=== PATIENT | male | born 1940 | race Caucasian/White ===

== ENCOUNTER → 2017-11-20 09:41 | Outpatient (CLI) | payer MEDICARE, SELFPAY | PROVIDERS: Family Provider Family Medicine; PCP Family Medicine; Visit Provider Family Medicine | DX: Z01.818 Encounter for other preprocedural examination (principal); R73.09 Other abnormal glucose; E87.1 Hypo-osmolality and hyponatremia | CPT/HCPCS: 36415 ==

== ENCOUNTER → 2018-03-14 14:05 | Outpatient (CLI) | payer MEDICARE, SELFPAY ==
[2018-03-14 14:08] LABS: Mucous, Urine 0 SEEN /hpf (<or=2+); Red Blood Cells-Urine 0 SEEN /hpf (0-5)
[2018-03-14 15:33] LABS: Absolute Lymphocyte Count 1.06 X10^3/ul (0.83-4.51); Absolute Neutrophil Count 2.7 X10^3/uL (2.0-7.7); Basophil# 0.02 X10^3/uL; Basophil% 0.5 % (0-1); Color, Urine Yellow (Yellow); Eosinophil# 0.17 X10^3/uL; Glucose, Dipstick Normal (Normal); Hematocrit 36.3 % (40-54); Hemoglobin 12.5 g/dl (13.0-16.5); Ketone-Dipstick Negative (Negative); Leukocyte Esterase-Dipstick Negative /ul (Negative); Lymphocyte # 1.06 X10^3/ul (4.0); Lymphocyte % 25.2 % (19-41); Mean Corp Hgb Conc 34.4 g/gl (32-36); Mean Corpuscular Hgb 33.4 pg (27.0-32.0); Mean Corpuscular Volume 97.1 fL (80-94); Monocyte# 0.31 X10^3/uL; Monocyte% 7.4 % (0-10); Neutrophil # 2.65 X10^3/uL (2.7-7.7); Neutrophil % 62.9 % (47-70); Nitrite-Dipstick Positive (Negative); Occult Blood-Urine Negative /ul (Negative); POSITIVE COUNT NO; POSITIVE DIFFERENTIAL NO; POSITIVE MORPHOLOGY NO; Platelet Count 156 K/mm3 (150-450); Protein-Dipstick 15 mg/dl (Negative); RBC Distribution Width CV 12.5 % (11.6-14.6); RBC Distribution Width SD 42.8 fl (35.1-43.9); Red Blood Count 3.74 M/mm3 (4.6-6.2); Specific Gravity, Urine 1.025 (1.002-1.030); Urine Bilirubin Dipstick Negative (Negative); Urine Clarity Sl. Cloudy (Clear); Urine Urobilinogen 1 mg/dl (Normal); White Blood Count 4.2 K/mm3 (4.4-11.0)
[2018-03-14 15:57] LABS: ALB/GLOB Ratio 1.2 RATIO (0.9-2.4); AST(SGOT) 19 U/L (15-37); Alanine Aminotransfer ALT/SGPT 22 U/L (16-61); Albumin, Serum 3.5 g/dL (3.2-5.0); Alkaline Phosphatase 98 U/L (45-117); Anion Gap 7 (5-15); BUN 13 mg/dL (7-18); BUN/Creat Ratio 16.5 RATIO (10-20); Calcium,Total 8.5 mg/dL (8.5-10.1); Chloride 99 mmol/L (98-107); Cholesterol 152 mg/dL (200); Creatinine, Serum 0.79 mg/dL (0.70-1.30); EST Glomerular Filtration Rate 101 mL/min (>60); Est Glom Filt Rate - Afr Amer 123 mL/min (>60); Globulin 2.9 g/dL (2.2-4.2); Glucose 141 mg/dL (74-106); High Density Lipoprotein 58 mg/dL; Potassium 4.6 mmol/L (3.5-5.1); Protein, Total 6.4 g/dL (6.4-8.2); Sodium Level 137 mmol/L (136-145); Triglycerides 88 mg/dL; Very Low Density Lipoprotein 18 mg/dL (5-40)
[2018-03-14 16:20] LABS: Bacteria RARE /hpf (None Seen); Squamous Epithelial Cells - UA 0-5 SEEN /hpf (0-5); White Blood Cells 0-5 SEEN /hpf (0-5)
--- OUTSIDE RECORDS SUMMARY | 2018-05-19 09:02 | XMS RPT_ITS | Summary of Care ---
:1940 Author Organization [facility] Address [address] [id number] Care Team Providers Name Role Phone Jus Allison MD Primary Care Provider Sherif Valles MD Unavailable Varsha Pineda CNP Unavailable Fran Burris MD Unavailable Inder Guillen MD Unavailable Estefany Gaxiola RN Unavailable Unavailable Reason for Referral MRI/CAT/PET Scan (Routine) Status Reason Specialty Diagnoses / Referred By Contact Referred To Contact Procedures Closed Radiology Diagnoses Chemotherapy follow-up examination Malignant neoplasm of head of pancreas (HCC) Sherif Valles MD Procedures CT Chest Abdomen Pelvis With Contrast [address] [address] MRI/CAT/PET Scan (Routine) Status Reason Specialty Diagnoses / Referred By Contact Referred To Contact Procedures Closed Radiology Diagnoses Chemotherapy follow-up examination Malignant neoplasm of head of pancreas (HCC) Sherif Valles MD Procedures CT Chest Abdomen Pelvis With Contrast 801 [facility] [address] [place] [address] Reason for Visit MRI/CAT/PET Scan (Routine) Status Reason Specialty Diagnoses / Referred By Contact Referred To Contact Procedures Closed Radiology Diagnoses Chemotherapy follow-up examination Malignant neoplasm of head of pancreas (HCC) Sherif Valles MD Procedures CT Chest Abdomen Pelvis With Contrast [address] [address] Encounter Details Date Type Department Care Team Description 04/24/[address] [facility] Sherif Valles MD Chemotherapy follow-up examination; Center CT Scan 801 [facility] Malignant neoplasm of head of pancreas (HCC) [address] [facility] [address] [place] [address] [place] [address] [phone] Allergies Active Allergy Reactions Severity Noted Date Comments Ciprofloxacin Hives 12/01/2014 Hives in the 80s Gemcitabine 02/09/2017 Penicillin Hives 12/01/2014 Hives in the 80s Tetracycline 12/01/2014 Ondansetron Hcl Hives 11/30/2016 Itching, hives, shortness of breath, sweating as of this encounter Medications Prescription Sig. Disp. Refills Start Date End Date Status mometasone-formoterol Inhale 2 puffs 2 01/11/2012 Active (DULERA) 200-5 (two) times a mcg/actuation HFAA day. oxygen Inhale 2.5 L/min Active nightly. omeprazole (PRILOSEC) Take 1 (one) 30 capsule 11 08/18/2016 08/18/2017 Active 40 MG capsule (40 mg capsuleIndications: total) by mouth Generalized abdominal daily. pain pancrelipase, Take 1 (one) 90 capsule 11 03/02/2017 03/02/2018 Active Xzp-Vwje-Fzxc, capsule (12,000 (CREON) 12,000-38,000 units of lipase -60,000 unit CpDR total) by mouth capsule 3 (three) times a day with meals. 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 10/08/2015 Chronic obstructive pulmonary disease (HCC) 10/08/2015 Pure hypercholesterolemia 10/08/2015 Resolved Problems Problem Noted Date Resolved Date 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 Cellulitis of right lower leg 12/15/2016 12/19/2016 Cellulitis 12/13/2016 12/19/2016 Postoperative infection 12/09/2016 02/09/2017 Last Assessment & Plan: - Hemodynamics stable, afebrile, on RA - Pain: Tylenol PRN - Continue Activity as tolerated, encouraged ambulation - Continue VTE prophylaxis with Lovenox and ambulation - Continue antibiotics, awaiting final culture results Rash 11/20/2016 02/09/2017 Pancreatic mass 10/11/2016 11/16/2016 Prostatitis, chronic 11/10/2015 02/09/2017 Social History Tobacco Use Types Packs/Day Years Used Date Current Every Day Smoker 1 60 Smokeless Tobacco: Never Used Alcohol Use Drinks/Week oz/Week Comments Yes rarely 1-2 week Sex Assigned at Date Recorded Not on file as of this encounter Plan of Treatment Upcoming Encounters Date Type Specialty Care Team Description 04/25/2017 Radiation Oncology Radiation Oncology Cole Rivera MD [address] [id number] 04/26/2017 Office Visit Oncology Sherif Valles MD [address] [address] [phone] 05/11/2017 Office Visit Primary Care DerrekegJus burton MD [address] [place] [address] [phone] Health Maintenance Due Date Last Done Comments TETANUS EVERY 10 YR 1940 ZOSTER VACCINE 2001 PNEUMOCOCCAL VACCINE AGE 65+ (1 of 2 2006 - PCV13) SEQUENTIAL INFLUENZA VACCINE (#1) 2016 Low-dose CT Lung Cancer Screen 02/22/2018 02/22/2017, 01/03/2017, 10/16/2016 COLONOSCOPY 07/27/2021 07/27/2016, 01/12/2010 as of this encounter Implants Implanted Type Area Vaccine Manager Device Expiration Model / Identifier Date Serial / Lot Port Implanted Mri Isp W/8fr Cath Powerport - [id number] Catheter - Right: BARD PERIP 12/26/2017 [id number] / Implanted: Qty: 1 on 12/04/2016 by Kota Vences MD Implant Subclavian / [id number] Cath 90cm Peritoneal Open End W/Wall Slits - [id number] Catheter - N/A: Abdomen MEDTRO [id number] [id number] / Implanted: Qty: 1 on 01/24/2017 by Inder Guillen MD Implant / Sealant 10ml Floseal Matrix Hemostatic W/Ndl-Free Adapter - [id number] N/A: Abdomen TOBAR BIO 03/20/2018 [id number] / Implanted: Qty: 2 on 01/24/2017 by Inder Guillen MD / [id number] as of this encounter Results CT Chest Abdomen Pelvis With Contrast (04/24/2017 11:27 AM) Specimen Performing Laboratory [facility] Impressions 1. Status post Whipple without definite evidence of recurrent or residual neoplasm by CT.?Given the history of elevated tumor markers, MRI of the liver follow-up could be considered. 2. Advanced emphysema changes are redemonstrated. [employer] Workstation ID:? [id number] Narrative EXAMINATION: CT CHEST ABDOMEN PELVIS WITH CONTRAST DATE: 04/24/2017. HISTORY: Pancreatic cancer s/p surgery, increasing tumor markers, for follow up. Reason for exam?:Pancreatic cancer s/p surgery, increasing tumor markers, for follow up. Injury/Trauma or Illness?:Illness/Other TECHNIQUE: The patient received dilute water-soluble oral contrast (18 mL Isovue-370 diluted in total aqueous volume of 900 mL).?The patient also received IV contrast with 100 mL Isovue-370. Dose reduction techniques were achieved by using automated exposure control and/or adjustment of mA and/or kV according to patient size and/or use of iterative reconstruction technique. COMPARISON: CT chest, abdomen and pelvis from [facility] of 02/22/2017 and 01/03/2017, abdominal MRI from [place] on 01/10/2017. FINDINGS: CT CHEST:?Moderate bilateral emphysema changes are redemonstrated.?No new dense infiltrate or pulmonary mass lesion is noted.?No pleural or pericardial effusion.?Right subclavian port catheter system is shown with catheter tip in the superior vena cava.?Atherosclerotic changes are present including the coronary system, particularly the left anterior descending coronary artery.?No lymphadenopathy by size criteria.?Normal-sized heart.?No suspicious mass lesion in the visualized root of the neck.?No frankly destructive bony lesion. CT ABDOMEN:?Subtle segment 4a hypodensity is unchanged.?No definite new hepatic lesion.?Spleen is normal in size.?No adrenal or suspicious renal mass.?Gallbladder is absent.?Postsurgical changes from Whipple are noted.?Dilated pancreatic duct is similar to previous.?The portal vein is shown to be patent.?No overt soft tissue mass in the upper abdomen is noted.?No pattern of bowel obstruction or ascites.?No overt lymphadenopathy.?Atherosclerotic changes involve the arterial tree.?The abdominal aorta is not aneurysmally dilated.?Degenerative changes of the spine are shown; however, no adams bone destruction is noted. CT PELVIS:?Colonic diverticulosis is shown without features of diverticulitis.?Prostate gland is mildly enlarged.?No lymphadenopathy by size criteria.?No ascites. Procedure Note Interface, Rad In Leroy Speechq - 04/24/2017 12:50 PM EST EXAMINATION: CT CHEST ABDOMEN PELVIS WITH CONTRAST DATE: 04/24/2017. HISTORY: Pancreatic cancer s/p surgery, increasing tumor markers, for follow up. Reason for exam?:Pancreatic cancer s/p surgery, increasing tumor markers, for follow up. Injury/Trauma or Illness?:Illness/Other TECHNIQUE: The patient received dilute water-soluble oral contrast (18 mL Isovue-370 diluted in total aqueous volume of 900 mL). The patient also received IV contrast with 100 mL Isovue-370. Dose reduction techniques were achieved by using automated exposure control and/or adjustment of mA and/or kV according to patient size and/or use of iterative reconstruction technique. COMPARISON: CT chest, abdomen and pelvis from [facility] of 02/22/2017 and 01/03/2017, abdominal MRI from [place] on 01/10/2017. FINDINGS: CT CHEST: Moderate bilateral emphysema changes are redemonstrated. No new dense infiltrate or pulmonary mass lesion is noted. No pleural or pericardial effusion. Right subclavian port catheter system is shown with catheter tip in the superior vena cava. Atherosclerotic changes are present including the coronary system, particularly the left anterior descending coronary artery. No lymphadenopathy by size criteria. Normal-sized heart. No suspicious mass lesion in the visualized root of the neck. No frankly destructive bony lesion. CT ABDOMEN: Subtle segment 4a hypodensity is unchanged. No definite new hepatic lesion. Spleen is normal in size. No adrenal or suspicious renal mass. Gallbladder is absent. Postsurgical changes from Whipple are noted. Dilated pancreatic duct is similar to previous. The portal vein is shown to be patent. No overt soft tissue mass in the upper abdomen is noted. No pattern of bowel obstruction or ascites. No overt lymphadenopathy. Atherosclerotic changes involve the arterial tree. The abdominal aorta is not aneurysmally dilated. Degenerative changes of the spine are shown; however, no adams bone destruction is noted. CT PELVIS: Colonic diverticulosis is shown without features of diverticulitis. Prostate gland is mildly enlarged. No lymphadenopathy by size criteria. No ascites. IMPRESSION: 1. Status post Whipple without definite evidence of recurrent or residual neoplasm by CT. Given the history of elevated tumor markers, MRI of the liver follow-up could be considered. 2. Advanced emphysema changes are redemonstrated. iMusician/trw Workstation ID: [id number] in this encounter Visit Diagnoses Diagnosis Chemotherapy follow-up examination Malignant neoplasm of head of pancreas (HCC) Malignant neoplasm of head of pancreas Administered Medications Inactive Administered Medications - up to 3 most recent administrations Medication Order MAR Action Action Date Dose Rate Site iopamidol (ISOVUE-370) 76 Contrast Administered 04/24/2017 11:28 EST 100 mL % injection 100 mL 100 mL, Intravenous, Once in imaging, contrast, Starting 04/24/17 at 0937, For 1 dose iopamidol (ISOVUE-370) 76 % oral Contrast Administered 04/24/2017 09:30 EST 18 mL solution 18 mL 18 mL, Oral, Once in imaging, contrast, Starting 04/24/17 at 0937, For 1 dose in this encounter Insurance Payer Benefit Plan / Group Subscriber ID Type Phone Address [employer]NA MANAGED MEDICARE [employer] GOLD PLUS O xxxxxxxxx HCAP/JESSICA 80% JESSICA xxxxxxxxx [phone] [place] [address] as of this encounter
--- OUTSIDE RECORDS SUMMARY | 2018-05-19 09:03 | XMS RPT_ITS | Summary of Care ---
:1940 Author Organization [facility] Address [address] [place] [address] Phone Care Team Providers Name Role Phone Jus Allison MD Primary Care Provider Sherif Valles MD Unavailable Varsha Pineda BUTTON BROACHER Unavailable Fran Burris MD Unavailable Reason for Visit Reason Comments Transition Of Care [facility] f/u 12/12/2016 Encounter Details Date Type Department Care Team Description 12/13/2016 Patient Outreach [place] Fannie Grewal, Transition Of Care Physicians Primary RN ([facility]/ Care 12/12/2016) [address] [place] [address] Allergies Active Allergy Reactions Severity Noted Date Comments Ciprofloxacin 12/01/2014 Penicillin 12/01/2014 Tetracycline 12/01/2014 Ondansetron Hcl Hives 11/30/2016 Itching, hives, shortness of breath, sweating as of this encounter Medications Prescription Sig. Disp. Refills Start Date End Date Status aspirin 81 MG EC Take 1 tablet Active tabletIndications: pt by mouth daily states he has not been Reasons: pt taking for a couple of states he has weeks not been taking for a couple of weeks. mometasone-formoterol Inhale 2 puffs 01/11/2012 Active (DULERA) 200-5 2 (two) times a mcg/actuation day. alfuzosin (UROXATRAL) Take 1 tablet 30 tablet 11 10/08/2015 Active 10 mg 24 hr (10 mg total) tabletIndications: by mouth at Benign nodular bedtime. prostatic hyperplasia with lower urinary tract symptoms oxygen Inhale 2.5 Active L/min nightly. omeprazole (PRILOSEC) Take 1 (one) 30 capsule 11 08/18/2016 08/18/2017 Active 40 MG capsule (40 mg capsuleIndications: total) by mouth Generalized abdominal daily. pain dexamethasone Take 2 (two) 12 tablet 6 11/20/2016 12/18/2016 Active (DECADRON) 4 MG tablet tablets (8 mg total) by mouth 2 (two) times a day with meals START TAKING DAY AFTER CHEMO FOR 2 DAYS. cephALEXin (KEFLEX) Take 1 (one) 32 capsule 0 12/12/2016 12/20/2016 Active 500 MG capsule capsule (500 mg total) by mouth 4 (four) times a day for 8 days. doxycycline hyclate Take 1 (one) 16 tablet 0 12/12/2016 12/20/2016 Active (VIBRA-TABS) 100 MG tablet (100 mg tablet total) by mouth 2 (two) times a day for 8 days. as of this encounter Active Problems Problem Noted Date Postoperative infection 12/09/2016 Last Assessment & Plan: - Hemodynamics stable, afebrile, on RA - Pain: Tylenol PRN - Continue Activity as tolerated, encouraged ambulation - Continue VTE prophylaxis with Lovenox and ambulation - Continue antibiotics, awaiting final culture results Rash 11/20/2016 Chemotherapy follow-up examination 11/20/2016 Encounter for antineoplastic chemotherapy 11/16/2016 Pancreatic cancer (HCC) 11/07/2016 Prostatitis, chronic 11/10/2015 BPH with obstruction/lower urinary tract symptoms 11/04/2015 Elevated PSA 11/04/2015 Abnormal PSA 10/28/2015 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 Spoke to Hannah- Patient was discharged from [facility] Discharge diagnosis: Hyponatremia, Infected venous access port-left Date of discharge: 12/09/2016-12/12/2016 Patient stated reason for hospitalization He had an infection on his port site States has been feeling He is doing better, he is even up moving around just slow Medications: Have you filled any new prescriptions? START taking these medications ?? Instructions ?? cephALEXin 500 MG capsule Commonly known as: KEFLEX ? Take 1 (one) capsule (500 mg total) by mouth 4 (four) times a day for 8 days. ? doxycycline hyclate 100 MG tablet Commonly known as: VIBRA-TABS ? Take 1 (one) tablet (100 mg total) by mouth 2 (two) times a day for 8 days. ?? TAKE these medications as instructed which may have CHANGED ?? Instructions ?? dexamethasone 4 MG tablet Commonly known as: DECADRON What changed: additional instructions ? Take 2 (two) tablets (8 mg total) by mouth 2 (two) times a day with meals START TAKING DAY AFTER CHEMO FOR 2 DAYS. ?? Are you taking your medications as directed on the hospital discharge? Medications reviewed, clarified. denies concerns or complaints. ADLs: ? Currently meeting ADL needs by No difficulty, performs independently ? Mobility walks ? Assistance needed with None ? Sleeping sleeping well ? Bowel/Bladder Diarrhea mild, 1 - 3 / 10 no problems with bladder No intervention needed at present-occurs post chemo ? Pain none Verbalizes awareness of worsened/new symptoms such as Fever/chills, return of redness at port site, increased redness/swelling to lower extremities, CP, SOB not relieved by resting and actions including when to seek emergent care with EMS/ED Other tests/providers/clinics Dec 21, 2016 9:00 AM EDT Port Draw with C INFUSION, CHAIR 1 [facility] Chemo Infusion Therapy ([facility]) ?? [address] [facility] [address] ? Dec 21, 2016 9:40 AM EDT Established/Office Visit with Sherif Valles MD [facility] Oncology Clinic ([facility]) ?? [address] [facility] [address] ? Please bring a photo ID, insurance card, all medication bottles, and method of payment for any co-pay and/or co-insurances. ? Dec 21, 2016 10:00 AM EDT Chemo with [facility] INFUSION, CHAIR 5 [facility] Chemo Infusion Therapy ([facility]) ?? [address] [facility] [address] Blood Culture Aerobic/Anaerobic Order: [id number] Status: Preliminary result ?Visible to patient: No (Not Released) Next appt: 12/19/2016 at 10:45 AM in Primary Care (Jus Allison MD) Culture No Growth After 48 Hours Resulting Agency: [facility] Lab Specimen Collected: 12/09/16 10:58 AM Last Resulted: 12/11/16 ??3:59 PM Blood Culture Aerobic/Anaerobic Order: [id number] Status: Preliminary result ?Visible to patient: No (Not Released) Next appt: 12/19/2016 at 10:45 AM in Primary Care (Jus Allison MD) Culture No Growth After 48 Hours Resulting Agency: [facility] Lab Specimen Collected: 12/09/16 10:51 AM Last Resulted: 12/11/16 ??3:59 PM Advised to: ? Bring all medications with you to your appointment ? Bring meter if diabetic to appointment with you ? Appointment date/time: 12/19/2016 @ 10:45am in this encounter Plan of Treatment Upcoming Encounters Date Type Specialty Care Team Description 12/19/2016 Office Visit Primary Care Jus Allison MD [address] [place] [address] [phone] 12/21/2016 Nurse Only Infusion Therapy 12/21/2016 Office Visit Oncology Sherif Valles MD [address] [facility] [address] [place] [address] [phone] 12/21/2016 Infusion/Injection Infusion Therapy Health Maintenance Due Date Last Done Comments TETANUS EVERY 10 YR 1940 ZOSTER VACCINE 2001 PNEUMOCOCCAL VACCINE AGE 65+ (1 of 2 - 2006 PCV13) SEQUENTIAL INFLUENZA VACCINE (#1) [address] Low-dose CT Lung Cancer Screen 10/16/2017 10/16/2016 COLONOSCOPY 07/27/2021 07/27/2016, 01/12/2010 as of this encounter Implants Implanted Type Area Prop Drawer Device Expiration Model / Identifier Date Serial / Lot Port Implanted Mri Isp W/8fr Cath Powerport - [id number] Catheter - Right: BARD PERIP 12/26/2017 [id number] / Implanted: Qty: 1 on 12/04/2016 by Kota Vences MD Implant Subclavian / [id number] as of this encounter Insurance Payer Benefit Plan / Group Subscriber ID Type Phone Address HUMANA MANAGED MEDICARE HU[employer]NA [facility] GOLD PLUS O [id number] HCAP/JESSICA 80% JESSICA [id number] as of this encounter
--- OUTSIDE RECORDS SUMMARY | 2018-05-19 09:03 | XMS RPT_ITS | Summary of Care ---
:1940 Author Organization [facility] Address [address] [place] [address] Phone Care Team Providers Name Role Phone Jus Allison MD Primary Care Provider Sherif Valles MD Unavailable Varsha Pineda CNP Unavailable Fran Burris MD Unavailable Reason for Visit Reason Comments Leg Pain right Auth/Cert Status Reason Specialty Diagnoses / Procedures Referred By Contact Referred To Contact Diagnoses Cellulitis of right lower extremity Encounter Details Date Type Department Care Team Description 12/15/2016 - Hospital Encounter [facility] Sravan Vasquez MD [address] [place] [id number] Cellulitis of right 12/18/[address] Luis Zapata MD [address] [place] [address] [phone] lower extremity [address] [facility] (Primary Dx);[address] swelling;[place] [address] neoplasm of [phone] pancreas, unspecified location of malignancy (HCC);Hyponatremia; Gastroesophageal reflux disease, esophagitis presence not specified;Tobacco abuse Allergies Active Allergy Reactions Severity Noted Date Comments Ciprofloxacin 12/01/2014 Penicillin 12/01/2014 Tetracycline 12/01/2014 Ondansetron Hcl Hives 11/30/2016 Itching, hives, shortness of breath, sweating as of this encounter Medications Prescription Sig. Disp. Refills Start Date End Date Status aspirin 81 MG EC tablet Take 1 Active tablet by mouth daily . mometasone-formoterol Inhale 2 01/11/2012 Active (DULERA) 200-5 puffs 2 mcg/actuation HFAA (two) times a day. oxygen Inhale 2.5 Active L/min nightly. omeprazole (PRILOSEC) Take 1 (one) 30 capsule 11 08/18/2016 08/19/19 Active 40 MG capsule (40 18 capsuleIndications: mg total) by Generalized abdominal mouth daily. pain dexamethasone Take 2 (two) 12 tablet 6 11/20/2016 12/19/19 Active (DECADRON) 4 MG tablet tablets (8 17 mg total) by mouth 2 (two) times a day with meals START TAKING DAY AFTER CHEMO FOR 2 DAYS. doxycycline hyclate Take 1 (one) 16 tablet 0 12/12/2016 12/21/19 Active (VIBRA-TABS) 100 MG tablet (100 17 tablet mg total) by mouth 2 (two) times a day for 8 days. methylPREDNISolone Reasons: PT 12/13/2016 Active (MEDROL DOSEPACK) 4 mg has at home, tabletIndications: PT but not has at home, but not taking at taking at this time this time. diphenhydrAMINE Take 25 mg Active (BENADRYL) 25 mg by mouth capsule every 6 (six) hours as needed for itching. furosemide (LASIX) 20 Take 1 (one) 60 tablet 0 12/18/2016 01/18/20 Active MG tablet tablet (20 17 mg total) by mouth 2 (two) times a day. alfuzosin (UROXATRAL) Take 1 30 tablet 11 10/08/2015 12/19/19 Discontinued 10 mg 24 hr tablet (10 17 tabletIndications: mg total) by Benign nodular mouth at prostatic hyperplasia bedtime. with lower urinary tract symptoms cephALEXin (KEFLEX) 500 Take 1 (one) 32 capsule 0 12/12/2016 12/19/19 Discontinued MG capsule capsule (500 17 mg total) by mouth 4 (four) times a day for 8 days. as of this encounter Active Problems Problem Noted Date Cellulitis of right lower leg 12/15/2016 Cellulitis 12/13/2016 Postoperative infection 12/09/2016 Last Assessment & Plan: [...] Not on file as of this encounter Last Filed Vital Signs Vital Sign Reading Time Taken Blood Pressure 146/75 12/18/2016 12:31 PM EDT Pulse 81 12/18/2016 12:31 PM EDT Temperature 36.8 ??C (98.3 ??F) 12/18/2016 12:31 PM EDT Respiratory Rate 16 12/18/2016 12:31 PM EDT Oxygen Saturation 94% 12/18/2016 12:31 PM EDT Inhaled Oxygen Concentration - - Weight 75.6 kg (166 lb 10.7 oz) 12/15/2016 2:37 PM EDT Height 172.7 cm (5' 8) 12/15/2016 2:37 PM EDT Body Mass Index 25.34 12/15/2016 2:37 PM EDT in this encounter Discharge Summaries Luis Zapata MD - 12/18/2016 1:57 PM EDTFormatting of this note may be different from the original. DISCHARGE SUMMARY Patient: Elbert Espinosa Account: [id number] Admitted: 12/15/2016 Discharge Date/Time: No discharge date for patient encounter. Clinical Summary Discharge Diagnoses and Associated Hospital Course: ASSESSMENT AND PLAN: ?? Perpetual Assessment: ?Elbert??Francisca??is a 76 y.o.??y/o male??on hospital day 2??with history of pancreatic cancer stage 1B undergoing chemo, chronic lymphedema, tobacco abuse, COPD, and GERD who presents with RLE cellulitis after having failed 2 courses of outpatient antibiotics ? 1. Right lower extremity cellulitis ( Pseudo cellulitis due to gemcitabine ) . Failed outpatient treatment with Doxy and Keflex. ??No signs of sepsis on admission. ??Dopplers negative for DVT. ??CT with SQ edema but no abscess or osteomyelitis. Started IV Ancef in ER-switched to IV vancomycin and cefepime,due to immunocompromised status. Blood cultures remains NGTD. ID consult appreciated - Pseudocellulitis due to Gemcitabine Continue Doxy Only ( remaining 6 days which the patient was d/c last admission ) 2. Cancer of ??pancreas. Stage IB involving head and uncinate process measuring 2.1 cm. On neoadjuvant chemo with Gemzar and Abraane from 11/16/16, s/p 3rd cycle with plans for 9 total cycles then possible surgery. Follows with oncology Dr Valles and [facility] surgeon Dr. Tarango. ??Next session is 12/21 which will likely need to be delayed. Recommend continued outpatient follow-up. ??Port recently placed by Dr. Vences - initial concern for infection but now it looks good. 3.??Chronic lymphedema. Chronic since May 2016. ??Bilateral, R>L. ??Continue oral lasix. Elevate legs. 4.?Hyponatremia. Chronic. ??Likely SIADH. Continue lasix 5. Pancytopenia:??Likely chemo-induced but numbers have been stable this admission. 6. Tobacco use. Still smokes 1ppd, counseling provided, declined nicotine patch. 7. GERD??Stable on PPI 8. COPD??Not in exacerbation, okay to DC ICS as patient is refusing. ??Smoking cessation reinforced. ?? Surgeries No admission procedures for hospital encounter. Procedures No orders of the defined types were placed in this encounter. Consults Procedures ??? Consult Hospitalist ??? Hospitalize Patient To : ??? Inpatient consult to Infectious Diseases Other Tests No orders of the defined types were placed in this encounter. Allergies Ciprofloxacin; Penicillin; Tetracycline; and Zofran (as hydrochloride) [ondansetron hcl] Discharge Diet Heart Healthy Discharge Medications Medication List START taking these medications furosemide 20 MG tablet Commonly known as: LASIX Take 1 (one) tablet (20 mg total) by mouth 2 (two) times a day. CHANGE how you take these medications dexamethasone 4 MG tablet Commonly known as: DECADRON Take 2 (two) tablets (8 mg total) by mouth 2 (two) times a day with meals START TAKING DAY AFTER FOR 2 DAYS. What changed: additional instructions CONTINUE taking these medications aspirin 81 MG EC tablet BENADRYL 25 mg capsule Generic drug: diphenhydrAMINE cephALEXin 500 MG capsule Commonly known as: KEFLEX Take 1 (one) capsule (500 mg total) by mouth 4 (four) times a day for 8 days. doxycycline hyclate 100 MG tablet Commonly known as: VIBRA-TABS Take 1 (one) tablet (100 mg total) by mouth 2 (two) times a day for 8 days. DULERA 200-5 mcg/actuation Hfaa Generic drug: mometasone-formoterol methylPREDNISolone 4 mg tablet Commonly known as: MEDROL DOSEPACK omeprazole 40 MG capsule Commonly known as: PRILOSEC Take 1 (one) capsule (40 mg total) by mouth daily. oxygen STOP taking these medications alfuzosin 10 mg 24 hr tablet Commonly known as: UROXATRAL Where to Get Your Medications You can get these medications from any pharmacy Bring a paper prescription for each of these medications ??? furosemide 20 MG tablet Physician(s) Primary Care Provider: Jus Allison MD, , Address: [address] [facility] [address] Follow Up: No follow-up provider specified. Patient instructions, including activity, were given to the patient/family at discharge. Please seethe After Visit Summary in the medical record for details. Time spent on discharge: > 30 min Completed by: Luis Le on 12/18/16, 1:57 PMin this encounter Progress Notes Vicky Velásquez RN - 12/18/2016 12:18 PM EDT COMPLEX DISCHARGE Date: 12/18/2016 Time: 12:18 PM Patient Name: Elbert Espinosa Date of : 1940 Sex: Male Pt was readmitted to [facility], he lives w/ his spouse, he is independent at home. Home O2 w. [place] [employer] [employer]. We diacussed importance of close follow up as outpt. PCP and ONC appts on AVS. Discharge Plan Shared UM/CC and RN Source of Information: Patient Contact Phone Number: Paola [phone] Living Arrangements: Spouse/significant other Support Systems: Spouse/significant other, Family members, Friends/neighbors Functional Status: Independent Type of Residence: Private residence Prior to Admission Home Care Services: No (pcp Dr Allison) Type of Current Home Care Services: Oxygen Current Home Equipment: Oxygen (O2 w/ [place] [facility], [employer]) Insurance Coverage for Prescriptions: Yes ([employer]) Anticipated Discharge Plan Anticipated HME: None Anticipated Home Care Needs: None Potential for Readmission Potential for Readmission: Yes Potential for Readmission Reason: Cellulitis Discharge Readiness Expected Discharge Date: 12/18/16 [facility] Disposition D/C Disposition: Home Agency/Destination: Home Home Care Needs : None HME: None Same As Recommended : yes Transportation Type: Auto Luis Zapata MD - 12/18/2016 11:14 AM EDTFormatting of this note may be different from the original. GENERAL MEDICINE PROGRESS NOTE - DAILY Patient Name: Elbert Espinosa MR #: [id number] ADM Date: [id number] : 1940 ASSESSMENT AND PLAN: Perpetual Assessment: Elbert Espinosa is a 76 y.o. y/o male on hospital day 2 with history of pancreatic cancer stage 1B undergoing chemo, chronic lymphedema, tobacco abuse, COPD, and GERD who presents with RLE cellulitis after having failed 2 courses of outpatient antibiotics ?? 1. Right lower extremity cellulitis. Failed outpatient treatment with Doxy and Keflex. No signs of sepsis on admission. Dopplers negative for DVT. CT with SQ edema but no abscess or osteomyelitis. Started IV Ancef in ER-switched to IV vancomycin and cefepime, now day 3?? due to immunocompromised status. Blood cultures remains NGTD. ID consult pending . Could DC on same regimen (still has about 7 days left of keflex and doxy) or could switch to doxy and cipro. 2. Cancer of ??pancreas. Stage IB involving head and uncinate process measuring 2.1 cm. On neoadjuvant chemo with Gemzar and Abraane from 11/16/16, s/p 3rd cycle with plans for 9 total cycles then possible surgery. Follows with oncology Dr Valles and [facility] surgeon Dr. Taarngo. Next session is 12/21 which will likely need to be delayed. Recommend continued outpatient follow-up. Port recently placed by Dr. Vences - initial concern for infection but now it looks good. 3. Chronic lymphedema. Chronic since May 2016. ??Bilateral, R>L. Continue oral lasix. Elevate legs. 4. Hyponatremia. Chronic. ??Likely SIADH. Continue lasix 5. Pancytopenia: Likely chemo-induced but numbers have been stable this admission. 6. Tobacco use. Still smokes 1ppd, counseling provided, declined nicotine patch. 7. GERD Stable on PPI 8. COPD Not in exacerbation, okay to DC ICS as patient is refusing. Smoking cessation reinforced. 9. DVT prophylaxis SQ lovenox Subjective : No pain in the Right lower extremity No issues with weight bearing ID consult pending Review of Systems: The following system(s) were reviewed. Pertinent positive and negative findings are noted in the HPI. Const Eyes ENT Resp CV GI Neuro Musc Skin Psych Endo Allergy Heme/Lymph Physical Exam: Vital Signs: BP 145/70 (BP Location: Right arm, Patient Position: Sitting) Pulse 81 Temp 97.7 ??F (36.5 ??C) (Oral) Resp 16 Ht 5' 8 Wt 75.6 kg (166 lb 10.7 oz) SpO2 94% BMI 25.34 kg/m2 Constitutional General Appearance - NAD; Conversant Skin - Normal turgor; No rashes noted Eyes - Pupils equal in size bilaterally; Anicteric sclerae ENMT - Hearing intact; Oropharynx clear with moist mucosa Neck - Trachea midline, No goiter noted Cardiovascular - Regular rate and rhythm; No peripheral edema noted Respiratory - Clear to auscultate bilaterally; No increased work of breathing or accessory muscle use noted Gastrointestinal - Soft, nondistended and nontender; No hepatosplenomegaly noted, neg rtrg or cvatb, ext- No calf tenderness noted bilaterally;, dorsiflexion intact. Right lower leg cellulitis Neuro - Alert and Oriented x 3; Appropriate mood and affect, WOO and neg FND appreciated Intake/Output last 24 hours: Intake/Output Summary (Last 24 hours) at 12/18/16 1114 Last data filed at 12/18/16 0849 Gross per 24 hour Intake 0 ml Output 300 ml Net -300 ml I/O last 3 completed shifts: In: 350 [IV Piggyback:350] Out: 1300 [Urine:1300] I/O this shift: In: - Out: 300 [Urine:300] ADDITIONAL DATA REVIEWED: Laboratory: Results from last 7 days Lab Units 12/18/16 0431 12/17/16 0352 12/16/16 0324 12/15/16 1259 WBC K/mcL 4.17* 3.72* 3.97* 3.99* HGB g/dL 9.9* 10.7* 10.2* 11.5* HCT % 28.9* 31.2* 28.9* 33.1* PLT K/mcL 192 162 117* 104* MONOS% % 21.3 20.7 -- 12.8 Results from last 7 days Lab Units 12/18/16 0431 12/17/16 0352 12/16/16 0324 SODIUM mmol/L 129* 133* 131* POTASSIUM mmol/L 3.7 4.0 3.8 CHLORIDE mmol/L 92* 97* 95* BUN mg/dL 10 9 9 CREATININE mg/dL 0.67* 0.72* 0.71* GLUCOSE mg/dL 164* 131* 142* CALCIUM mg/dL 8.2* 8.5 8.2* No results found for: TROPONINT No results found for: INR Glucose (mg/dL) Date Value 12/04/2016 130 12/04/2016 130 (H) Radiology: Ultrasound duplex venous legs bilat Final Result CT Tibia And Fibula Right Without Contrast Final Result There is prominent circumferential subcutaneous edema throughout the right lower leg extending to the dorsum of the foot consistent with cellulitis in the appropriate clinical setting. No discrete soft tissue abscess or gas. PD/latakook Workstation ID: [id number] ??? aspirin 81 mg Oral Daily ??? cefePIMe (MAXIPIME) IVPB 2,000 mg Intravenous Q12H ??? clotrimazole Topical BID ??? enoxaparin (LOVENOX) injection 40 mg Subcutaneous Daily ??? furosemide 20 mg Oral BID ??? pantoprazole 40 mg Oral Daily ??? vancomycin 1,250 mg Intravenous Q18H Nara Waters MD - 12/17/2016 4:35 PM EDTFormatting of this note may be different from the original. Disposition/Comments: Likely tomorrow Perpetual Assessment: Elbert Espinosa is a 76 y.o. y/o male on hospital day 2 with history of pancreatic cancer stage 1B undergoing chemo, chronic lymphedema, tobacco abuse, COPD, and GERD who presents with RLE cellulitis after having failed 2 courses of outpatient antibiotics 1. Right lower extremity cellulitis. Failed outpatient treatment with Doxy and Keflex. No signs of sepsis on admission. Dopplers negative for DVT. CT with SQ edema but no abscess or osteomyelitis. Started IV Ancef in ER-switched to IV vancomycin and cefepime, now day 3?? due to immunocompromised status. Blood cultures remains NGTD. Clinically much improved today but will be conservative and monitor one more night. Could DC on same regimen (still has about 7 days left of keflex and doxy) or could switch to doxy and cipro. 2. Cancer of ??pancreas. Stage IB involving head and uncinate process measuring 2.1 cm. On neoadjuvant chemo with Gemzar and Abraane from 11/16/16, s/p 3rd cycle with plans for 9 total cycles then possible surgery. Follows with oncology Dr Valles and [facility] surgeon Dr. Tarango. Next session is 12/21 which will likely need to be delayed. Recommend continued outpatient follow-up. Port recently placed by Dr. Vences - initial concern for infection but now it looks good. 3. Chronic lymphedema. Chronic since May 2016. ??Bilateral, R>L. Continue oral lasix. Elevate legs. 4. Hyponatremia. Chronic. ??Likely SIADH. Sodium improved after lasix, now 133. Monitor.?? 5. Pancytopenia: Likely chemo-induced but numbers have been stable this admission. 6. Tobacco use. Still smokes 1ppd, counseling provided, declined nicotine patch. 7. GERD Stable on PPI 8. COPD Not in exacerbation, okay to DC ICS as patient is refusing. Smoking cessation reinforced. 9. DVT prophylaxis SQ lovenox ? ASSESSMENT AND PLAN: Perpetual Assessment: Elbert Espinosa is a 76 y.o. male patient of Jus Allison MD with history of CC / Reason for follow up: RLE swelling/redness SUBJECTIVE: Wants to go home but agrees should be conservative so doesn't have to be readmitted. Able to walk on the leg okay. ROS: The following system(s) were reviewed. Pertinent positive and negative findings are noted in the HPI. All other systems personally reviewed and if I did not specifically mention them in the HPI, are to be considered negative. PHYSICAL EXAMINATION: Temp: [97.9 ??F (36.6 ??C)-98.9 ??F (37.2 ??C)] 98.3 ??F (36.8 ??C) Heart Rate: [62-81] 63 Resp: [16-18] 18 BP: (114-143)/(53-68) 133/61 GENERAL: Resting comfortably. NAD, sitting with leg elevated HEAD: Normocephalic ENT: Hearing intact. CV: Reg, no murmur. No JVD. 2+ Edema of RLE, port looks good without overlying erythema. RESP: Clear, no rales, rhonchi, wheezes GI: Non-distended, +BS, soft, non-tender. SKIN: Right lower leg with much improved erythema, receding from marked borders, no longer warm to touch, still with 1-2+ edema, onychomycosis EXT: no cyanosis, clubbing, 1-2+ edema NEURO: Alert, Ox3. Grossly normal motor and sensory exam. No focal deficits PSYCH: Mood and affect are appropriate. Cooperative. Reviewed 12/17/16 4:35 PM: Laboratory Transcriptions Radiology Microbiology Cardiology Outside Records Medications Family Expected Discharge/Time Spent/CCM Time: Based on current clinical information, the expected discharge date is: day after tomorrow (12/19/2016) The total time spent for this visit was 35 minutes. Greater than 50% of the time was spent in counseling and coordination of care regarding plan of care. Nara Waters MD - 12/16/2016 11:49 AM EDTFormatting of this note may be different from the original. Disposition/Comments: Possibly or Sunday if clinically improved Perpetual Assessment: Elbert Espinosa is a 76 y.o. y/o male on hospital day 1 with history of pancreatic cancer stage 1B undergoing chemo, chronic lymphedema, tobacco abuse, COPD, and GERD who presents with RLE cellulitis after having failed 2 courses of outpatient antibiotics 1. Right lower extremity cellulitis. Failed outpatient treatment with Doxy and Keflex. No signs of sepsis on admission. Dopplers negative for DVT. CT with SQ edema but no abscess or osteomyelitis. Started IV Ancef in ER-switched to IV vancomycin and cefepime?? due to immunocompromised status. Monitor for clinical improvement. Source may have been his onychomycosis. 2. Cancer of ??pancreas. Stage IB involving head and uncinate process measuring 2.1 cm. On neoadjuvant chemo with Gemzar and Abraane from 11/16/16, s/p 3rd cycle with plans for 9 total cycles then possible surgery. Follows with oncology Dr Valles and [facility] surgeon Dr. Tarango. Next session is 12/21 which will likely need to be delayed. Recommend continued outpatient follow-up 3. Chronic lymphedema. Chronic since May 2016. ??Bilateral, R>L. Continue oral lasix. Elevate legs. 4. Hyponatremia. Chronic. ??Likely SIADH. Sodium improved after lasix, now 131. Monitor.?? 5. Pancytopenia: Likely chemo-induced. Monitor for now. 6. Tobacco use. Still smokes 1ppd, counseling provided, declined nicotine patch. 7. GERD Stable on PPI 8. COPD Not in exacerbation, continue ICS, smoking cessation reinforced. 9. DVT prophylaxis SQ lovenox ? ASSESSMENT AND PLAN: Perpetual Assessment: Elbert Espinosa is a 76 y.o. male patient of Jus Allison MD with history of CC / Reason for follow up: RLE swelling/redness SUBJECTIVE: He thinks his leg is about the same from yesterday. Having some pain when walking on it. Otherwise feeling okay and eating well. ROS: The following system(s) were reviewed. Pertinent positive and negative findings are noted in the HPI. All other systems personally reviewed and if I did not specifically mention them in the HPI, are to be considered negative. PHYSICAL EXAMINATION: Temp: [97.6 ??F (36.4 ??C)-98.7 ??F (37.1 ??C)] 98.2 ??F (36.8 ??C) Heart Rate: [60-97] 81 Resp: [16-19] 18 BP: (107-174)/(54-88) 116/64 GENERAL: Resting comfortably. NAD HEAD: Normocephalic ENT: Hearing intact. CV: Reg, no murmur. No JVD. 2+ Edema of RLE RESP: Clear, no rales, rhonchi, wheezes GI: Non-distended, +BS, soft, non-tender. SKIN: Right lower leg with warmth,edema, and erythema only minimally receded from marked border.Onychomycosis. EXT: no cyanosis, clubbing, edema NEURO: Alert, Ox3. Grossly normal motor and sensory exam. No focal deficits PSYCH: Mood and affect are appropriate. Cooperative. Reviewed 12/16/16 11:49 AM: Laboratory Transcriptions Radiology Microbiology Cardiology Outside Records Medications Family Expected Discharge/Time Spent/CCM Time: Based on current clinical information, the expected discharge date is: day after tomorrow (12/18/2016) The total time spent for this visit was 35 minutes. Greater than 50% of the time was spent in counseling and coordination of care regarding plan of care. Anitra Alvarado, Carri.Ph. - 12/15/2016 3:40 PM EDTFormatting of this note may be different from the original. Pharmacokinetic Consult ??? Vancomycin Dosing Elbert Espinosa is a 76 y.o. male who has been consulted for vancomycin dosing for Cellulitis not responding to beta lactams. Relevant clinical data and objective history reviewed: Creatinine Date Value Ref Range Status 12/15/2016 0.68 (L) 0.80 - 1.30 mg/dL Final 12/12/2016 0.72 (L) 0.80 - 1.30 mg/dL Final 12/11/2016 0.69 (L) 0.80 - 1.30 mg/dL Final 10/05/2016 0.7 (L) 0.8 - 1.3 mg/dL Final 09/11/2016 0.7 (L) 0.8 - 1.3 mg/dL Final Serum Creatinine Date Value Ref Range Status 01/11/2012 0.9 0.8 - 1.3 MG/DL BUN Date Value Ref Range Status 12/15/2016 10 8 - 25 mg/dL Final 12/12/2016 15 8 - 25 mg/dL Final 12/11/2016 9 8 - 25 mg/dL Final 07/07/2014 12 8 - 25 MG/DL 01/11/2012 9 6 - 24 MG/DL Estimated Creatinine Clearance: 61.8 mL/min (by C-G formula based on Cr of 0.68). Lab Results Component Value Date/Time WBC 3.99 (L) 12/15/2016 12:59 PM WBC 5.35 07/07/2014 11:01 AM HGB 11.5 (L) 12/15/2016 12:59 PM HGB 15.3 07/07/2014 11:01 AM HCT 33.1 (L) 12/15/2016 12:59 PM HCT 45.2 07/07/2014 11:01 AM MCV 90.4 12/15/2016 12:59 PM MCV 95.6 07/07/2014 11:01 AM PLT 104 (L) 12/15/2016 12:59 PM Temp Readings from Last 3 Encounters: 12/15/16 97.6 ??F (36.4 ??C) (Oral) 12/13/16 98 ??F (36.7 ??C) (Temporal) 12/12/16 97.6 ??F (36.4 ??C) (Oral) Baseline culture/source/susceptibility: blood cxs pending. Previous 2 blood cxs are no growth Current weight is 75.6 kg Assessment/Plan The patient will be started on vancomycin utilizing scheduled dosing based on actual body weight. Baseline risks associated with therapy include: advanced age. Will initiate dose at 1250 mg IV every 12 hours. Pharmacy will also follow closely for s/sx of nephrotoxicity and infusion reactions. Serum creatinine will be ordered per policy. Plan for trough as patient approaches steady state, prior to the 4th dose. Due to infection severity, will target a trough of 10-15 ug/mL. Pharmacy will continue to follow the patient???s culture results and clinical progress daily. Anitra Rios this encounter H&P Notes Stella Plunkett CNP - 12/15/2016 3:04 PM EDTFormatting of this note may be different from the original. Stella Plunkett CNP [facility] History and Physical Patient Name: Elbert Espinosa MR #: [id number] : 1940 Admit Date: [id number] Physicians: Jus Allison MD (Family); No ref. provider found (Referring) Perpetual assessment:Elbert Espinosa is a 76 y.o. male with PMH significant for recent admission at [place] from 12/09/16-12/12/16 for suspected MediPort site infection, COPD with continued tobacco use(Not on home o2), pancreatic cancer (stage IB ([id number])-diagnosed in 10/31/2016- follows up with Dr. Valles on neoadjuvant chemotherapy with Gemzar and Abraxane (started 11/16/16), s/p R chest mediport placement on 12/04/[address] Vences presented to [place] ER per instruction of oncology office for worsening right lower extremity cellulitis. ASSESSMENT AND PLAN: Right lower extremity cellulitis Failed outpatient treatment with Doxy and Keflex Patient has no 2 SIRS criteria(mild leukopenia from chemo not related to infection) Lower extremity venous Doppler from 12/10/16-negative for DVT Considering marketed worsening of symptoms, repeat venous Doppler Get CT lower extremity to rule out abscess Started IV Ancef in ER-switched to IV vancomycin and cefepime considering immunocompromised status Bilateral Leg swelling Chronic since May 2016. Bilateral, R>L. Place on Lasix 20 mg BID Check albumin levels Supportive care-Elevate legs while on bed Cancer of ??pancreas Stage IB involving head and uncinate process measuring 2.1 cm On neoadjuvant chemo with Gemzar and Abraane from 11/16/[address] Valles and [facility] surgeon Dr. Tarango Recommend continued outpatient follow-up ? 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 Tobacco use Still smokes 1ppd Counseled to quit Refusing nicotine patch ? GERD Stable on PPI, resume ? COPD Not in exacerbation C/w Dulera Smoking cessation reinforced ?? Pacytopenia Likely chemo induced Follow CBC ? DVT prophylaxis SQ lovenox Portions of this note utilized flo.do dictation software, please excuse any typographical or grammatical errors CC: Right lower extremity swelling and pain HPI: Elbert Espinosa is a 76 y.o. male with PMH significant for recent admission at [place] from 12/09/16-12/12/16 for suspected MediPort site infection, COPD with continued tobacco use(Not on home o2),pancreatic cancer (stage IB ([id number])-diagnosed in 10/31/2016, follows up with Dr. Valles on neoadjuvant chemotherapy with Gemzar and Abraxane (started 11/16/16),s/p R chest mediport placement on 12/04/[address] Vences presented to [place] ER per instruction of oncology office for worsening right lower extremity cellulitis. With recent admission for MediPort site infection, patient was treated with vancomycin and Ancef in the hospital and was DC home on Keflex and doxy. He reports compliance to his antibiotics. . He had bilateral lower extremity swelling since May 2016. During his recent hospital stay he developed some mild erythema on his right lower extremity but improved prior to discharge. He was seen by oncology on 12/13/16. His right lower extremity redness, swelling and pain started getting worse and he was recommended by oncology office to call them if does not get better. As it was not getting better today he called back on to oncology office who recommended him to come to ER chito evaluation. Denies fever, chills, anorexia, abdominal pain, nausea, vomiting. PMH/PSH/SH/FH: Past Medical History: Diagnosis Date ??? Arthritis ??? BPH (benign prostatic hyperplasia) ??? Cancer (HCC) skin cancer ??? Cataract ??? Chemotherapy adverse reaction 12/01/2016 has had 2 treatments-- getting port now. Had adverse reaction to zofran after first treatment ??? Chronic diarrhea current problem (07/21/16), stool specimen positive for blood ([facility]) per pt ??? Colon polyps 2009 benign ??? Complication of anesthesia difficulty waking up ??? COPD (chronic obstructive pulmonary disease) (HCC) ??? GERD (gastroesophageal reflux disease) ??? History of stress test ??? Pancreatic cancer (HCC) 11/12 ??? Pancreatic mass Past Surgical History: Procedure Laterality Date ??? APPENDECTOMY ??? CATHETER INSERTION SQPORT N/A 12/04/2016 Procedure: PORT PLACEMENT ; Surgeon: Kota Vences MD; Location: [facility] Main OR; Service: ??? COLONOSCOPY 2009 benign polyps found ??? COLONOSCOPY N/A 07/27/2016 Procedure: COLONOSCOPY; Surgeon: Kota Vences MD; Location: [facility] Endo; Service: ??? PROSTATE BIOPSY ??? SINUS SURGERY 2003 Family History Problem Relation Age of Onset ??? Hypertension Mother ??? Stroke Mother ??? Thyroid disease Mother ??? Cancer Mother lung ??? Cancer Father Lung, malignant neoplasm of the large intestine ??? Cancer Sister colon cancer Social History Social History ??? Marital status: Spouse name: N/A ??? Number of children: N/A ??? Years of education: N/A Occupational History ??? Not on file. Social History Main Topics ??? Smoking status: Current Every Day Smoker Packs/day: 1.00 Years: 60.00 ??? Smokeless tobacco: Never Used ??? Alcohol use Yes Comment: rarely 1-2 week ??? Drug use: No ??? Sexual activity: Not on file Other Topics Concern ??? Not on file Social History Narrative Allergy Information: I have reviewed the patient's allergies. Ciprofloxacin; Penicillin; Tetracycline; and Zofran (as hydrochloride) [ondansetron hcl] Home Medications: Outpatient Prescriptions as of 12/15/2016 Medication Sig ??? aspirin 81 MG EC tablet Take 1 tablet by mouth daily . ??? cephALEXin (KEFLEX) 500 MG capsule Take 1 (one) capsule (500 mg total) by mouth 4 (four) times aday for 8 days. ??? doxycycline hyclate (VIBRA-TABS) 100 MG tablet Take 1 (one) tablet (100 mg total) by mouth 2 (two) times a day for 8 days. ??? mometasone-formoterol (DULERA) 200-5 mcg/actuation HFAA Inhale 2 puffs 2 (two) times a day. ??? omeprazole (PRILOSEC) 40 MG capsule Take 1 (one) capsule (40 mg total) by mouth daily. ??? alfuzosin (UROXATRAL) 10 mg 24 hr tablet Take 1 tablet (10 mg total) by mouth at bedtime. (Patient not taking: Reported on 11/16/2016.) ??? dexamethasone (DECADRON) 4 MG tablet Take 2 (two) tablets (8 mg total) by mouth 2 (two) times a day with meals START TAKING DAY AFTER CHEMO FOR 2 DAYS. (Patient taking differently: Take 8 mg by mouth 2 (two) times a day with meals START TAKING DAY AFTER CHEMO FOR 2 DAYS PT NOT TAKING .) ??? methylPREDNISolone (MEDROL DOSEPACK) 4 mg tablet Reasons: PT has at home, but not taking at this time. ??? oxygen Inhale 2.5 L/min nightly. ROS: Constitution: Negative for diaphoresis, malaise/fatigue, weight gain and weight loss. ?? HENT: Negative for hearing loss, nosebleeds and tinnitus.? Eyes: Negative for blurred vision and visual disturbance. ?? Cardiovascular: negative for chest pain.? Respiratory: negative for shortness of breath. ?? Skin: Positive for RLE cellulitis Musculoskeletal: Negative for back pain, muscle weakness and myalgias. ?? Gastrointestinal: Negative for abdominal pain, change in bowel habit, melena, nausea and vomiting. ?? Genitourinary: Negative Neurological: Negative for loss of balance and numbness. ?? Psychiatric/Behavioral: Negative for memory loss. The patient is not nervous/anxious.?? PHYSICAL EXAMINATION: Vital Signs: Temp: [97.6 ??F (36.4 ??C)] 97.6 ??F (36.4 ??C) Heart Rate: [75-91] 75 Resp: [16] 16 BP: (147-162)/(66-77) 147/66 GENERAL: NAD HEAD: Normocephalic EYES: Conjunctiva and sclera clear, EOMI, PERRL ENT: Hearing intact. Pharynx clear NECK: No adenopathy or thyromegaly CV: RRR, no murmur. No JVD. 2-3+ bilateral lower extremity (R>L) edema. Right chest port intact RESP: Clear, no rales, rhonchi, wheezes or increase in respiratory effort, no use of acessory muscles GI: Non-distended, +BS, soft, non-tender. No guarding, masses or rebound MUSC: Normal ROM without deformity SKIN: Right lower extremities with erythema, 3+ edema, tenderness to palpation from below knee including the foot and the ankle NEURO: Alert, Ox3. Grossly normal motor and sensory exam. No focal deficits PSYCH: Mood and affect are appropriate. Cooperative. LYMPH: No adenopathy Laboratory and Additional Data Acquired or Reviewed: Laboratory Transcriptions Radiology Microbiology Cardiology Outside Records Medications Family Results for orders placed or performed during the hospital encounter of 12/15/16 BMP Result Value Ref Range Sodium 127 (L) 135 - 145 mmol/L Potassium 3.5 3.5 - 5.1 mmol/L Chloride 90 (L) 98 - 108 mmol/L Bicarbonate 31 22 - 34 mmol/L Anion Gap 10 10 - 20 mmol/L Glucose 177 (H) 65 - 99 mg/dL BUN 10 8 - 25 mg/dL Creatinine 0.68 (L) 0.80 - 1.30 mg/dL eGFR 93 >=60 mL/min/1.73 m2 BUN/Creatinine Ratio 14.7 10.0 - 20.0 Calcium 8.8 8.4 - 10.2 mg/dL CBC Auto Differential Result Value Ref Range WBC 3.99 (L) 4.50 - 11.00 K/mcL RBC 3.66 (L) 4.50 - 5.90 M/mcL Hemoglobin 11.5 (L) 13.5 - 17.5 g/dL Hematocrit 33.1 (L) 41.0 - 53.0 % MCV 90.4 80.0 - 100.0 fL MCH 31.4 26.0 - 34.0 pg MCHC 34.7 31.0 - 37.0 g/dL Platelets 104 (L) 150 - 400 K/mcL RDW - CV 12.4 11.6 - 14.8 % MPV 8.9 (L) 9.0 - 15.5 fL Neutrophils 54.5 % Lymphocytes 26.6 % Monocytes 12.8 % Eosinophils 5.8 % Basophils 0.3 % Neutrophils Abs 2.18 1.70 - 7.00 K/mcL Lymphocytes Abs 1.06 0.90 - 4.00 K/mcL Monocytes Abs 0.51 0.30 - 0.90 K/mcL Eosinophils Abs 0.23 0.00 - 0.50 K/mcL Basophils Abs 0.01 0.00 - 0.30 K/mcL Nucleated RBC 0.0 % Nucleated RBC Abs 0.00 0.00 - 0.00 K/mcL Associated attestation - Luis Zapata MD - 12/15/2016 3:33 PM EDT Patient seen and examined today Agree with the Assessment and Plan with changes below ASSESSMENT AND PLAN: ?? Right lower extremity cellulitis Failed outpatient treatment with Doxy and Keflex Patient has no 2 SIRS criteria(mild leukopenia from chemo not related to infection) Lower extremity venous Doppler from 12/10/16-negative for DVT Considering marketed worsening of symptoms, repeat venous Doppler to rule out DVT Get CT lower extremity with No abscess Started IV Ancef in ER-switched to IV vancomycin and cefepime considering immunocompromised status ?? Bilateral Leg swelling Chronic since May 2016. Bilateral, R>L. Place on Lasix 20 mg BID PO Check albumin levels , LFTs Supportive care-Elevate legs while on bed ?? Cancer of ??pancreas Stage IB involving head and uncinate process measuring 2.1 cm On neoadjuvant chemo with Gemzar and Abraane from 11/16/[address] Valles and [facility] surgeon Dr. Tarango Recommend continued outpatient follow-up ? 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 Tobacco use Still smokes 1ppd Counseled to quit Refusing nicotine patch ? GERD Stable on PPI, resume ? COPD Not in exacerbation C/w Dulera Smoking cessation reinforced ? 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 DVT prophylaxis SQ lovenox ?? ROS: Constitution: Negative for diaphoresis, malaise/fatigue, weight gain and weight loss. ?? HENT: Negative for hearing loss, nosebleeds and tinnitus.? Eyes: Negative for blurred vision and visual disturbance. ?? Cardiovascular: negative for chest pain.? Respiratory: negative for shortness of breath. ?? Skin: Positive for RLE cellulitis Musculoskeletal: Negative for back pain, muscle weakness and myalgias. ?? Gastrointestinal: Negative for abdominal pain, change in bowel habit, melena, nausea and vomiting. ?? Genitourinary: Negative Neurological: Negative for loss of balance and numbness. ?? Psychiatric/Behavioral: Negative for memory loss. The patient is not nervous/anxious.? Physical Exam ?? GENERAL: NAD HEAD: Normocephalic EYES: Conjunctiva and sclera clear, EOMI, PERRL ENT: Hearing intact. Pharynx clear NECK: No adenopathy or thyromegaly CV: RRR, no murmur. No JVD. 2-3+ bilateral lower extremity (R>L) edema. Right chest port intact RESP: Clear, no rales, rhonchi, wheezes or increase in respiratory effort, no use of acessory muscles GI: Non-distended, +BS, soft, non-tender. No guarding, masses or rebound MUSC: Normal ROM without deformity SKIN: Right lower extremities with erythema, 3+ edema, tenderness to palpation from below knee including the foot and the ankle NEURO: Alert, Ox3. Grossly normal motor and sensory exam. No focal deficits PSYCH: Mood and affect are appropriate. Cooperative. LYMPH: No adenopathy ??in this encounter Consult Notes Velma Montoya MD - 12/18/2016 1:43 PM EDTAssociated Order(s): IP CONSULT TO INFECTIOUS DISEASESFormatting of this note may be different from the original. INFECTIOUS DISEASES CONSULT NOTE Patient Name: Elbert Espinosa Admit Date: [id number] MR #: [id number] : 1940 Physicians: Jus Allison MD (Family); Dr Lim (Referring) Impression and Recommendations: RLE erythema, swelling, previous warmth, now with hyperpigmentation and more vascular appearing markings. Afebrile, WBC low from chemo but not neutropenic. Pt ready to leave. There is reported pseudocellulitis from gemzar, possible etiology as no other major clinical indicators of bacterial cellulitis but reasonable to complete course of PO abx. He is now more hyperpigmented than bright red, discussed that skin may stay that color or fade over time. Advised to monitor R dorsal foot, remains swollen but not painful. Discussed edema control, advised leg elevation and may need vascular medicine evaluation eventually. Pt endorses itching today, and new lesions on L leg. In case this is reaction to cephalosporin, would likely continue doxycycline alone given h/o PCN reaction. May need eventual skin biopsy if recurs. Thank you for allowing me to participate in the care of your patient. I did discuss the plan of carewith Dr Lim. D/w family at bedside. Planned d/c today. Chief Complaint/Reason for Visit: Right lower extremity cellulitis History of Present Illness: We are asked to see the patient at the request of Dr Lim. Elbert Espinosa is a 76 y.o. male with COPD, recently diagnosed pancreatic cancer who was directed to ED 12/15/16 for concern for RLE cellulitis. Reviewed oncologic history, pt started on chemo with gemzar and abraxane 11/16/16, most recently 12/07/16. He was admitted to [facility] 12/09-12/12/16 for redness of his newly placed port, bc negative. He states his RLE was red at that time, and viewed picture from 12/[address] Frazier. Pt states henoticed his RLE was more red and swollen at home, especially when he got up to urinate at night. He saw oncologist 12/13, who advised if not improving to return to ED. Pt came back to ED 12/15, started on vancomycin and cefepime. CT non-contrast showed diffuse tissue thickening, no abscess. His WBC islow normal. Afebrile. Not neutropenic. He states there was seeping from the leg at one point, improved edema now. Denies h/o cellulitis. He states he had spots pop up on LLE yesterday. He reports feeling generally itchy. He has unknown PCN reaction. Eosinophil percentage trending up. Denies trauma to leg. Does endorse mild lower leg swelling and circulation problems at baseline. History: Past Medical History: Diagnosis Date ??? Arthritis ??? BPH (benign prostatic hyperplasia) ??? Cancer (HCC) skin cancer ??? Cataract ??? Chemotherapy adverse reaction 12/01/2016 has had 2 treatments-- getting port now. Had adverse reaction to zofran after first treatment ??? Chronic diarrhea current problem (07/21/16), stool specimen positive for blood ([facility]) per pt ??? Colon polyps 2010 benign ??? Complication of anesthesia difficulty waking up ??? COPD (chronic obstructive pulmonary disease) (HCC) ??? GERD (gastroesophageal reflux disease) ??? History of stress test ??? Pancreatic cancer (HCC) 11/12 ??? Pancreatic mass Past Surgical History: Procedure Laterality Date ??? APPENDECTOMY ??? CATHETER INSERTION SQPORT N/A 12/04/2016 Procedure: PORT PLACEMENT ; Surgeon: Kota Vences MD; Location: [facility] Main OR; Service: ??? COLONOSCOPY 2010 benign polyps found ??? COLONOSCOPY N/A 07/27/2016 Procedure: COLONOSCOPY; Surgeon: Kota Vences MD; Location: [facility] Endo; Service: ??? PROSTATE BIOPSY ??? SINUS SURGERY 2003 Family History Problem Relation Age of Onset ??? Hypertension Mother ??? Stroke Mother ??? Thyroid disease Mother ??? Cancer Mother lung ??? Cancer Father Lung, malignant neoplasm of the large intestine ??? Cancer Sister colon cancer Social History Social History ??? Marital status: Spouse name: N/A ??? Number of children: N/A ??? Years of education: N/A Occupational History ??? Not on file. Social History Main Topics ??? Smoking status: Current Every Day Smoker Packs/day: 1.00 Years: 60.00 ??? Smokeless tobacco: Never Used ??? Alcohol use Yes Comment: rarely 1-2 week ??? Drug use: No ??? Sexual activity: Not on file Other Topics Concern ??? Not on file Social History Narrative Allergy Information: I have reviewed the patient's allergies. Ciprofloxacin; Penicillin; Tetracycline; and Zofran (as hydrochloride) [ondansetron hcl] Home Medications: I have reviewed the patient's home medication list. Review of Systems: The following system(s) were reviewed and negative. Pertinent positive and negative findings are noted in the HPI. Const Eyes ENT Resp CV GI Neuro Musc Skin Psych Endo Allergy Heme/Lymph Unable to obtain due to clinical status Physical Examination: Vital Signs: Temp: [97.7 ??F (36.5 ??C)-98.6 ??F (37 ??C)] 98.3 ??F (36.8 ??C) Heart Rate: [63-89] 81 Resp: [16-18] 16 BP: (133-150)/(61-75) 146/75 General: Alert, cooperative, no distress, appears stated age Eyes: conjunctiva/sclerae clear Mouth and Throat: Oral exam without erythema or exudate Neck: Supple, symmetrical, trachea midline, no adenopathy Respiratory: respirations unlabored, normal respiratory effort, occasional cough Cardiovascular: Distant S1S2 Gastrointestinal (Abdomen): Soft, non-tender, bowel sounds active, no masses or organomegaly appreciated Genitourinary: No blunt Extremities: R>LLE edema, pitting on right Skin: See pictures below. Port site non-tender Musculoskeletal: No joint erythema or edema RLE with shiny edema, minimal warmth, hyperpigmented macules proximally. More prominent red swelling on R foot, nontender RLE near knee LLE with new petechial/vascular lesions, no cellultis Pictures taken with patient's permission. Laboratory and Additional Data Reviewed: Laboratory 12/18/16 2:07 PM Microbiology 12/18/16 2:07 PM Pathology 12/18/16 2:07 PM Radiology 12/18/16 2:07 PM Cardiology 12/18/16 2:07 PM Medications 12/18/16 2:07 PM Transcriptions 12/18/16 2:07 PM Current medications: ??? aspirin 81 mg Oral Daily ??? cefePIMe (MAXIPIME) IVPB 2,000 mg Intravenous Q12H ??? clotrimazole Topical BID ??? enoxaparin (LOVENOX) injection 40 mg Subcutaneous Daily ??? furosemide 20 mg Oral BID ??? pantoprazole 40 mg Oral Daily ??? tamsulosin 0.4 mg Oral After evening meal ??? vancomycin 1,250 mg Intravenous Q18H Results from last 7 days Lab Units 12/18/16 0431 12/17/16 0352 12/16/16 0324 WBC K/mcL 4.17* 3.72* 3.97* HGB g/dL 9.9* 10.7* 10.2* HCT % 28.9* 31.2* 28.9* PLT K/mcL 192 162 117* Results from last 7 days Lab Units 12/18/16 0431 12/17/16 0352 12/16/16 0324 SODIUM mmol/L 129* 133* 131* POTASSIUM mmol/L 3.7 4.0 3.8 CHLORIDE mmol/L 92* 97* 95* BUN mg/dL 10 9 9 CREATININE mg/dL 0.67* 0.72* 0.71* GLUCOSE mg/dL 164* 131* 142* CALCIUM mg/dL 8.2* 8.5 8.2* Comments: WBC 4.17. Mild elevation eosinophil percentage. Cr 0.[address] reviewed Assessment Detail: The total time spent for this visit was 50 minutes. Greater than 50% of the time was spent in counseling and coordination of care regarding RLE erythema, concern for cellulitis. Velma Montoya MD [facility] - Infectious Diseases Pager [phone] Office/answering service [phone] 12/18/2016 1:43 PM in this encounter Miscellaneous Notes ED Attestation Note - Sravan Vasquez MD - 12/15/2016 1:50 PM EDTED Attestation: I was personally available for consult in the emergency department. I have reviewed the chart and agree with the documentation as recorded by the SHAHID (Advanced Practice Provider), including the assessment, treatment plan, and disposition ED Provider Notes - Dominik Goncalves PA-C - 12/15/2016 1:37 PM EDT Formatting of this note may be different from the original. ED PROVIDER NOTE [facility] EMERGENCY DEPARTMENT NAME: Elbert Espinosa AGE: 76 y.o. : 1940 VISIT DATE: 12/15/2016 CSN: [id number] PCP: Jus Allison MD Chief Complaint Patient presents with ??? Leg Pain right HPI Comments: Patient presents the emergency department with sialitis of the right lower extremity.He was admitted to the hospital about a week ago for a port infection to the right chest as well as a sialitis of the right lower extremity. His inpatient course included vancomycin and Ancef and states that he did not really get a lot better while he was in the hospital. Was discharged 3 or 4 days ago on doxycycline and Keflex and states he is having worsening pain and continues to have a reddenedswollen leg. He saw his primary care doctor today and directed him to come the emergency departmentbecause he feels he needs to be rehospitalized due to his cellulitis. Patient is currently being treated with chemotherapy for pancreatic cancer. He states he is having a lot of pain like this is notany better. He denies chest pain fever vomiting or other ill symptoms. He notes the swelling and redness he was having to the right chest has resolved. History provided by: Patient Past Medical History: Diagnosis Date ??? Arthritis ??? BPH (benign prostatic hyperplasia) ??? Cancer (HCC) skin cancer ??? Cataract ??? Chemotherapy adverse reaction 12/01/2016 has had 2 treatments-- getting port now. Had adverse reaction to zofran after first treatment ??? Chronic diarrhea current problem (07/21/16), stool specimen positive for blood ([facility]) per pt ??? Colon polyps 2010 benign ??? Complication of anesthesia difficulty waking up ??? COPD (chronic obstructive pulmonary disease) (HCC) ??? GERD (gastroesophageal reflux disease) ??? History of stress test ??? Pancreatic cancer (HCC) 11/12 ??? Pancreatic mass Past Surgical History: Procedure Laterality Date ??? APPENDECTOMY ??? CATHETER INSERTION SQPORT N/A 12/04/2016 Procedure: PORT PLACEMENT ; Surgeon: Kota Vences MD; Location: [facility] Main OR; Service: ??? COLONOSCOPY 2010 benign polyps found ??? COLONOSCOPY N/A 07/27/2016 Procedure: COLONOSCOPY; Surgeon: Kota Vences MD; Location: [facility] Endo; Service: ??? PROSTATE BIOPSY ??? SINUS SURGERY 2003 Family History Problem Relation Age of Onset ??? Hypertension Mother ??? Stroke Mother ??? Thyroid disease Mother ??? Cancer Mother lung ??? Cancer Father Lung, malignant neoplasm of the large intestine ??? Cancer Sister colon cancer Social History Social History ??? Marital status: Spouse name: N/A ??? Number of children: N/A ??? Years of education: N/A Occupational History ??? Not on file. Social History Main Topics ??? Smoking status: Current Every Day Smoker Packs/day: 1.00 Years: 60.00 ??? Smokeless tobacco: Never Used ??? Alcohol use Yes Comment: rarely 1-2 week ??? Drug use: No ??? Sexual activity: Not on file Other Topics Concern ??? Not on file Social History Narrative Previous Medications ALFUZOSIN (UROXATRAL) 10 MG 24 HR TABLET Take 1 tablet (10 mg total) by mouth at bedtime. ASPIRIN 81 MG EC TABLET Take 1 tablet by mouth daily . CEPHALEXIN (KEFLEX) 500 MG CAPSULE Take 1 (one) capsule (500 mg total) by mouth 4 (four) times aday for 8 days. DEXAMETHASONE (DECADRON) 4 MG TABLET Take 2 (two) tablets (8 mg total) by mouth 2 (two) times a day with meals START TAKING DAY AFTER CHEMO FOR 2 DAYS. DOXYCYCLINE HYCLATE (VIBRA-TABS) 100 MG TABLET Take 1 (one) tablet (100 mg total) by mouth 2 (two) times a day for 8 days. METHYLPREDNISOLONE (MEDROL DOSEPACK) 4 MG TABLET Reasons: PT has at home, but not taking at this time. MOMETASONE-FORMOTEROL (DULERA) 200-5 MCG/ACTUATION HFAA Inhale 2 puffs 2 (two) times a day. OMEPRAZOLE (PRILOSEC) 40 MG CAPSULE Take 1 (one) capsule (40 mg total) by mouth daily. OXYGEN Inhale 2.5 L/min nightly. Allergies Allergen Reactions ??? Ciprofloxacin ??? Penicillin ??? Tetracycline ??? Zofran (As Hydrochloride) [Ondansetron Hcl] Hives Itching, hives, shortness of breath, sweating Review of Systems Constitutional: Negative for chills, fatigue and fever. HENT: Negative for congestion, ear pain and rhinorrhea. Respiratory: Negative for cough, chest tightness, shortness of breath and wheezing. Cardiovascular: Negative for chest pain, palpitations and leg swelling. Gastrointestinal: Negative for abdominal pain, constipation, diarrhea, nausea and vomiting. Genitourinary: Negative for dysuria, flank pain, hematuria and urgency. Musculoskeletal: Negative for back pain, joint swelling and neck pain. Skin: Positive for color change. Swelling redness right leg Neurological: Negative for dizziness, syncope, weakness, numbness and headaches. Positives and pertinent negatives as per HPI. All other systems were reviewed and are negative. Patient Vitals for the past 24 hrs: BP Temp Temp src Pulse Resp SpO2 12/15/16 1324 147/66 - - 75 16 97 % 12/15/16 1209 (!) 162/77 97.6 ??F (36.4 ??C) Temporal 91 16 98 % Physical Exam Constitutional: He is oriented to person, place, and time. He appears well- developed and well-nourished. HENT: Head: Normocephalic and atraumatic. Cardiovascular: Normal rate, regular rhythm, normal heart sounds and intact distal pulses. No murmur heard. Pulmonary/Chest: Effort normal and breath sounds normal. No respiratory distress. He has no wheezes.He has no rales. He exhibits no tenderness. Mediport the right chest is well-healing there is no erythema redness or tenderness. Musculoskeletal: Is 1+ pedal pulse. There is cellulitis to the right lower extremity at the level of the proximal mares down through the calf foot and ankle and dorsum of the foot. This is circumferential. No abscessformation is seen. Neurological: He is alert and oriented to person, place, and time. No cranial nerve deficit. Skin: Skin is warm. Capillary refill takes less than 3 seconds. Nursing note and vitals reviewed. Laboratory & Radiographic Imaging (if done): Results for orders placed or performed during the hospital encounter of 12/15/16 CBC Auto Differential Result Value Ref Range WBC 3.99 (L) 4.50 - 11.00 K/mcL RBC 3.66 (L) 4.50 - 5.90 M/mcL Hemoglobin 11.5 (L) 13.5 - 17.5 g/dL Hematocrit 33.1 (L) 41.0 - 53.0 % MCV 90.4 80.0 - 100.0 fL MCH 31.4 26.0 - 34.0 pg MCHC 34.7 31.0 - 37.0 g/dL Platelets 104 (L) 150 - 400 K/mcL RDW - CV 12.4 11.6 - 14.8 % MPV 8.9 (L) 9.0 - 15.5 fL Neutrophils 54.5 % Lymphocytes 26.6 % Monocytes 12.8 % Eosinophils 5.8 % Basophils 0.3 % Neutrophils Abs 2.18 1.70 - 7.00 K/mcL Lymphocytes Abs 1.06 0.90 - 4.00 K/mcL Monocytes Abs 0.51 0.30 - 0.90 K/mcL Eosinophils Abs 0.23 0.00 - 0.50 K/mcL Basophils Abs 0.01 0.00 - 0.30 K/mcL Nucleated RBC 0.0 % Nucleated RBC Abs 0.00 0.00 - 0.00 K/mcL No orders to display Procedures MDM Patient with ongoing cellulitis of the right lower extremity. He is now responding to doxycycline and Keflex. Because of his outpatient therapy will be rehospitalized for further care of his symptomsno evidence for neurovascular compromise at this time. No evidence for systemic infection or sepsis. His right port infection seems to have improved significantly. We did not access the port here today. He does not meet SIRS criteria here today in the emergency department. We will will readmit, spoke with on-call hospitalist does agree to admit ED Course The patient has been informed that they may have pre-hypertension or hypertension based on a blood pressure reading in the Emergency Department. I recommend that the patient call the primary care provider listed on their discharge instructions or a physician of their choice as soon as possible to arrange follow-up in the next 4 weeks for further evaluation of possible pre-hypertension or hypertension. . Clinical Impression: SNOMED CT(R) 1. Cellulitis of right lower extremity CELLULITIS OF RIGHT LOWER LIMB Follow-up Information Follow-up information has not been specified. New Prescriptions No medications on file (Please note that portions of this note may have been completed with a voice recognition software. Efforts were made to correct any errors, but occasionally words are mis-transcribed.) Dominik Goncalves PA-C 12/15/16 1342 ED Triage Notes - Janae Cadet RN - 12/15/2016 12:10 PM EDTOn Keflex AND DOXYCYCLINE FOR RIGHT LEG AND PORT INFECTION/CELLULITIS; INPATIENT AT [facility] AND RELEASED FOR SAME. Not ANY BETTER DR Gabriel SENT PATIENT TO ER FOR EVALUATION OF RIGHT LOWER LEG. DVT HAD BEEN RULED OUT DURING ADMISSION.in this encounter Plan of Treatment Upcoming Encounters Date Type Specialty Care Team Description 12/19/2016 Office Visit Primary Care Jus Allison MD [address] [place], [place] [id number] 12/21/2016 Nurse Only Infusion Therapy Sherif Valles MD [address] [facility] [address] [place] [address] [phone] 12/21/2016 Office Visit Oncology Sherif Valles MD [address] [address] [phone] 12/21/2016 Infusion/Injection Infusion Therapy Sherif Valles MD [address] [address] [phone] Pending Results Name Priority Associated Diagnoses Date/Time Blood Culture Aerobic/Anaerobic Routine 12/15/2016 12:59 PM EDT Blood Culture Aerobic/Anaerobic Routine 12/15/2016 1:04 PM EDT Health Maintenance Due Date Last Done Comments TETANUS EVERY 10 YR 1940 ZOSTER VACCINE 2001 PNEUMOCOCCAL VACCINE AGE 65+ (1 of 2 - 2006 PCV13) SEQUENTIAL INFLUENZA VACCINE (#1) 2016 Low-dose CT Lung Cancer Screen 10/16/2017 10/16/2016 COLONOSCOPY 07/27/2021 07/27/2016, 01/12/2010 as of this encounter Implants Implanted Type Area Appeals Analyst Device Expiration Model / Identifier Date Serial / Lot Port Implanted Mri Isp W/8fr Cath Powerport - [id number] Catheter - Right: BARD PERIP 12/26/2017 [id number] / Implanted: Qty: 1 on 12/04/2016 by Kota Vences MD Implant Subclavian / [id number] as of this encounter Results CBC Auto Differential (12/18/2016 4:31 AM) Component Value Ref Range WBC 4.17 (L) 4.50 - 11.00 K/mcL RBC 3.16 (L) 4.50 - 5.90 M/mcL Hemoglobin 9.9 (L) 13.5 - 17.5 g/dL Hematocrit 28.9 (L) 41.0 - 53.0 % MCV 91.5 80.0 - 100.0 fL MCH 31.3 26.0 - 34.0 pg MCHC 34.3 31.0 - 37.0 g/dL Platelets 192 150 - 400 K/mcL RDW - CV 13.0 11.6 - 14.8 % MPV 8.3 (L) 9.0 - 15.5 fL Neutrophils 41.3 % Lymphocytes 25.4 % Monocytes 21.3 % Eosinophils 11.5 % Basophils 0.5 % Neutrophils Abs 1.72 1.70 - 7.00 K/mcL Lymphocytes Abs 1.06 0.90 - 4.00 K/mcL Monocytes Abs 0.89 0.30 - 0.90 K/mcL Eosinophils Abs 0.48 0.00 - 0.50 K/mcL Basophils Abs 0.02 0.00 - 0.30 K/mcL Nucleated RBC 0.0 % Nucleated RBC Abs 0.00 0.00 - 0.00 K/mcL Specimen Performing Laboratory Blood [facility] [address] [place] [address] CBC and Differential (12/18/2016 4:31 AM) Specimen Performing Laboratory Blood Narrative The following orders were created for panel order CBC and Differential. Procedure? Abnormality? Status? ---------? ------? CBC Auto Differential[[id number]]?Abnormal?Final result? Please view results for these tests on the individual orders. Basic Metabolic Panel (12/18/2016 4:31 AM) Component Value Ref Range Sodium 129 (L) 135 - 145 mmol/L Potassium 3.7 3.5 - 5.1 mmol/L Chloride 92 (L) 98 - 108 mmol/L Bicarbonate 29 22 - 34 mmol/L Anion Gap 12 10 - 20 mmol/L Glucose 164 (H) 65 - 99 mg/dL BUN 10 8 - 25 mg/dL Creatinine 0.67 (L) 0.80 - 1.30 mg/dL eGFR 94 >=60 mL/min/1.73 m2 BUN/Creatinine Ratio 14.9 10.0 - 20.0 Calcium 8.2 (L) 8.4 - 10.2 mg/dL Specimen Performing Laboratory Blood [facility] [address] [place] [address] Narrative The eGFR should be used for monitoring renal function only and not for medication dosing. CBC Auto Differential (12/17/2016 3:52 AM) Component Value Ref Range WBC 3.72 (L) 4.50 - 11.00 K/mcL RBC 3.43 (L) 4.50 - 5.90 M/mcL Hemoglobin 10.7 (L) 13.5 - 17.5 g/dL Hematocrit 31.2 (L) 41.0 - 53.0 % MCV 91.0 80.0 - 100.0 fL MCH 31.2 26.0 - 34.0 pg MCHC 34.3 31.0 - 37.0 g/dL Platelets 162 150 - 400 K/mcL RDW - CV 13.0 11.6 - 14.8 % MPV 8.6 (L) 9.0 - 15.5 fL Neutrophils 39.5 % Lymphocytes 28.5 % Monocytes 20.7 % Eosinophils 10.8 % Basophils 0.5 % Neutrophils Abs 1.47 (L) 1.70 - 7.00 K/mcL Lymphocytes Abs 1.06 0.90 - 4.00 K/mcL Monocytes Abs 0.77 0.30 - 0.90 K/mcL Eosinophils Abs 0.40 0.00 - 0.50 K/mcL Basophils Abs 0.02 0.00 - 0.30 K/mcL Nucleated RBC 0.0 % Nucleated RBC Abs 0.00 0.00 - 0.00 K/mcL Specimen Performing Laboratory Blood [facility] [address] [place] [address] CBC and Differential (12/17/2016 3:52 AM) Specimen Performing Laboratory Blood Narrative The following orders were created for panel order CBC and Differential. Procedure? Abnormality? Status? ---------? ------? CBC Auto Differential[[id number]]?Abnormal?Final result? Please view results for these tests on the individual orders. Basic Metabolic Panel (12/17/2016 3:52 AM) Component Value Ref Range Sodium 133 (L) 135 - 145 mmol/L Potassium 4.0 3.5 - 5.1 mmol/L Chloride 97 (L) 98 - 108 mmol/L Bicarbonate 30 22 - 34 mmol/L Anion Gap 10 10 - 20 mmol/L Glucose 131 (H) 65 - 99 mg/dL BUN 9 8 - 25 mg/dL Creatinine 0.72 (L) 0.80 - 1.30 mg/dL eGFR 91 >=60 mL/min/1.73 m2 BUN/Creatinine Ratio 12.5 10.0 - 20.0 Calcium 8.5 8.4 - 10.2 mg/dL Specimen Performing Laboratory Blood [facility] [address] [place] [address] Narrative The eGFR should be used for monitoring renal function only and not for medication dosing. Basic Metabolic Panel (12/16/2016 3:24 AM) Component Value Ref Range Sodium 131 (L) 135 - 145 mmol/L Potassium 3.8 3.5 - 5.1 mmol/L Chloride 95 (L) 98 - 108 mmol/L Bicarbonate 30 22 - 34 mmol/L Anion Gap 10 10 - 20 mmol/L Glucose 142 (H) 65 - 99 mg/dL BUN 9 8 - 25 mg/dL Creatinine 0.71 (L) 0.80 - 1.30 mg/dL eGFR 92 >=60 mL/min/1.73 m2 BUN/Creatinine Ratio 12.7 10.0 - 20.0 Calcium 8.2 (L) 8.4 - 10.2 mg/dL Specimen Performing Laboratory Blood [facility] [address] [place] [address] Narrative The eGFR should be used for monitoring renal function only and not for medication dosing. CBC (12/16/2016 3:24 AM) Component Value Ref Range WBC 3.97 (L) 4.50 - 11.00 K/mcL RBC 3.21 (L) 4.50 - 5.90 M/mcL Hemoglobin 10.2 (L) 13.5 - 17.5 g/dL Hematocrit 28.9 (L) 41.0 - 53.0 % MCV 90.0 80.0 - 100.0 fL MCH 31.8 26.0 - 34.0 pg MCHC 35.3 31.0 - 37.0 g/dL Platelets 117 (L) 150 - 400 K/mcL RDW - CV 12.6 11.6 - 14.8 % MPV 8.8 (L) 9.0 - 15.5 fL Nucleated RBC 0.0 % Nucleated RBC Abs 0.00 0.00 - 0.00 K/mcL Specimen Performing Laboratory Blood [facility] [address] [place] [address] Narrative [employer] Ultrasound duplex venous legs bilat (12/15/2016 5:52 PM) Specimen Performing Laboratory [facility] [address] [place] [address] Narrative Non-Invasive Vascular Patient:? FRANCISCA Christina? Med Rec#:?[id number]? (Age): 1940(76y) ? Study Date:?12/15/2016? Room#:? Type:?Inpatient? Sex:? M Reading:?Tristen Silva M.D. Referring:?Luis Zapata MD Named Account Executive:?Ann Junior(R), RDMS, RVT Procedure Info:? [id number] Study Quality:?Lower Venous Duplex: adequate Diagnosis: M79.661?Pain in right lower leg R60.9?Edema, unspecified Lower Venous Duplex? Conclusions No evidence of deep or superficial venous thrombosis in either lower extremity, in those veins that were clearly visualized.?Copressibility of the posterior tibial and peroneal veins of the right lower extremity could not be assessed due to patient's intolerance, but these veins were noted to be patent on color Doppler. The procedure was explained to the patient.?The patient voiced understanding.? Finding Grids ? Right Duplex Exam ? Spont? Phasic ?External Iliac? Y? Y?Common Femoral? Y? Y?Proximal Femoral? Y? Y?Mid Femoral?Y? Y?Distal Femoral? Y? Y?Popliteal?Y? Y?Posterior Tibial? _? _?Peroneal? _? _?Great Saphenous?_? _?Small Saphenous?_? _? Augment? Color Filling? Compressibility ?External Iliac? Y? Y? Y?Common Femoral? Y? Y? Y?Proximal Femoral? Y? Y? Y?Mid Femoral?Y? Y? Y?Distal Femoral? Y? Y? Y?Popliteal?Y? Y? Y?Posterior Tibial? _? Y? _?Peroneal? _? Y? _?Great Saphenous?_? _? Y?Small Saphenous?_? _? Y?Orellana ?--------- ?Y = Yes ? Left Duplex Exam ? Spont? Phasic ?External Iliac? Y? Y?Common Femoral? Y? Y?Proximal Femoral? Y? Y?Mid Femoral?Y? Y?Distal Femoral? Y? Y?Popliteal?Y? Y?Posterior Tibial? _? _?Peroneal? _? _?Great Saphenous?_? _?Small Saphenous?_? _? Augment? Color Filling? Compressibility ?External Iliac? Y? Y? Y?Common Femoral? Y? Y? Y?Proximal Femoral? Y? Y? Y?Mid Femoral?Y? Y? Y?Distal Femoral? Y? Y? Y?Popliteal?Y? Y? Y?Posterior Tibial? _? Y? Y?Peroneal? _? Y? Y?Great Saphenous?_? _? Y?Small Saphenous?_? _? Y?Orellana ?--------- ?Y = Yes Electronically signed at 12/17/2016 09:57:23 by: Tristen Silva M.D. Procedure Note [facility] 12/17/2016 9:58 AM EDT Non-Invasive Vascular Patient: FRANCISCA Christina [facility] Rec#: [id number] (Age): 1940(76y) Study Date: 12/15/2016 Room#: Type: Inpatient Sex: M Reading: Tristen Silva M.D. Referring: Luis Zapata MD Named Account Executive: Ann Junior(Carri), BARBARA, VARUN Procedure Info: [id number] Study Quality: Lower Venous Duplex: adequate Diagnosis: M79.661 Pain in right lower leg R60.9 Edema, unspecified Lower Venous Duplex Conclusions No evidence of deep or superficial venous thrombosis in either lower extremity, in those veins that were clearly visualized. Copressibility of the posterior tibial and peroneal veins of the right lower extremity could not be assessed due to patient's intolerance, but these veins were noted to be patent on color Doppler. The procedure was explained to the patient. The patient voiced understanding. Finding Grids Right Duplex Exam Spont Phasic External Iliac Y Y Common Femoral Y Y Proximal Femoral Y Y Mid Femoral Y Y Distal Femoral Y Y Popliteal Y Y Posterior Tibial _ _ Peroneal _ _ Great Saphenous _ _ Small Saphenous _ _ Augment Color Filling Compressibility External Iliac Y Y Y Common Femoral Y Y Y Proximal Femoral Y Y Y Mid Femoral Y Y Y Distal Femoral Y Y Y Popliteal Y Y Y Posterior Tibial _ Y _ Peroneal _ Y _ Great Saphenous _ _ Y Small Saphenous _ _ Y Orellana --------- Y = Yes Left Duplex Exam Spont Phasic External Iliac Y Y Common Femoral Y Y Proximal Femoral Y Y Mid Femoral Y Y Distal Femoral Y Y Popliteal Y Y Posterior Tibial _ _ Peroneal _ _ Great Saphenous _ _ Small Saphenous _ _ Augment Color Filling Compressibility External Iliac Y Y Y Common Femoral Y Y Y Proximal Femoral Y Y Y Mid Femoral Y Y Y Distal Femoral Y Y Y Popliteal Y Y Y Posterior Tibial _ Y Y Peroneal _ Y Y Great Saphenous _ _ Y Small Saphenous _ _ Y Orellana --------- Y = Yes Electronically signed at 12/17/2016 09:57:23 by: Tristen Silva M.D. CT Tibia And Fibula Right Without Contrast (12/15/2016 2:52 PM) Specimen Performing Laboratory [facility] Impressions There is prominent circumferential subcutaneous edema throughout the right lower leg extending to the dorsum of the foot consistent with cellulitis in the appropriate clinical setting.?No discrete soft tissue abscess or gas. PD/tiffaniek Workstation ID:? [id number] Narrative EXAMINATION: CT TIB FIB RIGHT WITHOUT CONTRAST HISTORY: ORDERING SYSTEM PROVIDED HISTORY:?cellulitis, TECHNOLOGIST PROVIDED HISTORY: Reason for exam: rt leg swelling and pain r/o abcess Illness/Other Encounter Type: Subsequent/Follow-up Additional signs and symptoms: no contrast per hopitallist ORDERING SYSTEM PROVIDED DIAGNOSIS CODES: L03.115 Cellulitis of right lower extremity COMPARISON: None. TECHNIQUE: Dose reduction techniques were achieved by using automated exposure control and/or adjustment of mA and/or kV according to patient size and/or use of iterative reconstruction technique. 3D volume-rendered images were also created on a separate workstation by the interpreting radiologist and submitted as part of the examination. Imaging of the right lower leg without contrast. FINDINGS: There is prominent circumferential subcutaneous edema throughout the right lower leg extending into the dorsum of the foot consistent with cellulitis in the appropriate clinical setting.?Mild intermuscular edema between the soleus and gastrocnemius muscles is also seen.?No CT evidence of myositis.?No discrete soft tissue abscess or gas.?Osteopenia without fracture or suspicious osseous lesion. Procedure Note Interface, Rad In [employer] - 12/15/2016 8:02 PM EDT EXAMINATION: CT TIB FIB RIGHT WITHOUT CONTRAST HISTORY: ORDERING SYSTEM PROVIDED HISTORY: cellulitis, TECHNOLOGIST PROVIDED HISTORY: Reason for exam: rt leg swelling and pain r/o abcess Illness/Other Encounter Type: Subsequent/Follow-up Additional signs and symptoms: [facility] PROVIDED DIAGNOSIS CODES: L03.115 Cellulitis of right lower extremity COMPARISON: None. TECHNIQUE: Dose reduction techniques were achieved by using automated exposure control and/or adjustment of mA and/or kV according to patient size and/or use of iterative reconstruction technique. 3D volume-rendered images were also created on a separate workstation by the interpreting radiologist and submitted as part of the examination. Imaging of the right lower leg without contrast. FINDINGS: There is prominent circumferential subcutaneous edema throughout the right lower leg extending into the dorsum of the foot consistent with cellulitis in the appropriate clinical setting. Mild intermuscular edema between the soleus and gastrocnemius muscles is also seen. No CT evidence of myositis. No discrete soft tissue abscess or gas. Osteopenia without fracture or suspicious osseous lesion. IMPRESSION: There is prominent circumferential subcutaneous edema throughout the right lower leg extending to the dorsum of the foot consistent with cellulitis in the appropriate clinical setting. No discrete soft tissue abscess or gas. PD/sjk Workstation ID: [id number] Phosphorus (12/15/2016 12:59 PM) Component Value Ref Range Phosphorus 3.6 2.3 - 3.7 mg/dL Specimen Performing Laboratory Blood [facility] [address] [place] [address] CPK NO MB (12/15/2016 12:59 PM) Component Value Ref Range Total CK 41 (L) 60 - 225 U/L Specimen Performing Laboratory Blood [facility] [address] [place] [address] Hepatic Function Panel (12/15/2016 12:59 PM) Component Value Ref Range Total Protein 6.7 6.0 - 8.0 g/dL Albumin 2.7 (L) 3.2 - 5.2 g/dL Total Bilirubin 0.2 0.0 - 1.3 mg/dL Bilirubin, Direct 0.1 0.0 - 0.4 mg/dL Alkaline Phosphatase 102 40 - 150 U/L AST 51 (H) 0 - 45 U/L ALT 97 (H) 14 - 65 U/L Specimen Performing Laboratory Blood [facility] [address] [place] [address] Berry Top (12/15/2016 12:59 PM) Component Value Ref Range Extra Tube Hold for add-ons.Comment: Auto resulted. Specimen Performing Laboratory Blood [facility] [place] [address] Light Blue Top (12/15/2016 12:59 PM) Component Value Ref Range Extra Tube Hold for add-ons.Comment: Auto resulted. Specimen Performing Laboratory Blood [facility] [place] [address] Gold Top (12/15/2016 12:59 PM) Component Value Ref Range Extra Tube Hold for add-ons.Comment: Auto resulted. Specimen Performing Laboratory Blood [facility] [address] [place] [address] Forsan Draw (12/15/2016 12:59 PM) Specimen Performing Laboratory Blood Narrative The following orders were created for panel order Forsan Draw. Procedure? Abnormality? Status? ---------? ------? Gold Top[[id number]]? Final result? Light Blue Top[[id number]]? Final result? Berry Top[[id number]]? Final result? Please view results for these tests on the individual orders. CBC Auto Differential (12/15/2016 12:59 PM) Component Value Ref Range WBC 3.99 (L) 4.50 - 11.00 K/mcL RBC 3.66 (L) 4.50 - 5.90 M/mcL Hemoglobin 11.5 (L) 13.5 - 17.5 g/dL Hematocrit 33.1 (L) 41.0 - 53.0 % MCV 90.4 80.0 - 100.0 fL MCH 31.4 26.0 - 34.0 pg MCHC 34.7 31.0 - 37.0 g/dL Platelets 104 (L) 150 - 400 K/mcL RDW - CV 12.4 11.6 - 14.8 % MPV 8.9 (L) 9.0 - 15.5 fL Neutrophils 54.5 % Lymphocytes 26.6 % Monocytes 12.8 % Eosinophils 5.8 % Basophils 0.3 % Neutrophils Abs 2.18 1.70 - 7.00 K/mcL Lymphocytes Abs 1.06 0.90 - 4.00 K/mcL Monocytes Abs 0.51 0.30 - 0.90 K/mcL Eosinophils Abs 0.23 0.00 - 0.50 K/mcL Basophils Abs 0.01 0.00 - 0.30 K/mcL Nucleated RBC 0.0 % Nucleated RBC Abs 0.00 0.00 - 0.00 K/mcL Specimen Performing Laboratory Blood [facility] [address] [place] [address] BMP (12/15/2016 12:59 PM) Component Value Ref Range Sodium 127 (L) 135 - 145 mmol/L Potassium 3.5 3.5 - 5.1 mmol/L Chloride 90 (L) 98 - 108 mmol/L Bicarbonate 31 22 - 34 mmol/L Anion Gap 10 10 - 20 mmol/L Glucose 177 (H) 65 - 99 mg/dL BUN 10 8 - 25 mg/dL Creatinine 0.68 (L) 0.80 - 1.30 mg/dL eGFR 93 >=60 mL/min/1.73 m2 BUN/Creatinine Ratio 14.7 10.0 - 20.0 Calcium 8.8 8.4 - 10.2 mg/dL Specimen Performing Laboratory Blood [facility] [address] [place] [address] Narrative The eGFR should be used for monitoring renal function only and not for medication dosing. CBC w/ Diff (12/15/2016 12:59 PM) Specimen Performing Laboratory Blood Narrative The following orders were created for panel order CBC w/ Diff. Procedure? Abnormality? Status? ---------? ------? CBC Auto Differential[[id number]]?Abnormal?Final result? Please view results for these tests on the individual orders. in this encounter Visit Diagnoses Diagnosis Cellulitis of right lower extremity - Primary Leg swelling Swelling of limb Malignant neoplasm of pancreas, unspecified location of malignancy (HCC) Hyponatremia Hyposmolality and/or hyponatremia Gastroesophageal reflux disease, esophagitis presence not specified Tobacco abuse Tobacco use disorder Cellulitis of right lower leg in this encounter Administered Medications Inactive Administered Medications - up to 3 most recent administrations Medication Order MAR Action Action Date Dose Rate Site aspirin EC tablet 81 mg Given 12/16/2016 08:35 EDT 81 mg 81 mg, Oral, Daily, First dose on Sun12/15/16 at 1800, DO NOT CRUSH OR CHEW. Given 12/17/2016 08:22 EDT 81 mg Given 12/18/2016 08:43 EDT 81 mg ceFAZolin (ANCEF) IVPB 1 g (premix) New Bag 12/15/2016 13:45 EDT 1,000 mg 100 mL/hr 1,000 mg, Intravenous, at 100 mL/hr, Once, Sun12/15/16 at 1335, For 1 dose, Indication: Skin/Soft Tissue Infection cefePIMe (MAXIPIME) 2000 mg in New Bag 12/17/2016 05:16 EDT 2,000 mg 200 mL/hr sodium chloride (NS) 0.9% 100 mL (vialmate) 2,000 mg, Intravenous, at 200 mL/hr, Every 12 hours, First dose on Sun12/15/16 at 1700, Indication: OTHER New Bag 12/17/2016 17:25 EDT 2,000 mg 200 mL/hr New Bag 12/18/2016 05:29 EDT 2,000 mg 200 mL/hr clotrimazole (LOTRIMIN) 1 % cream Given 12/16/2016 20:48 EDT 1 application Topical, 2 times daily, First dose on Sun12/16/16 at 1345, Apply to toenail Given 12/17/2016 08:23 EDT Given 12/18/2016 08:43 EDT enoxaparin (LOVENOX) syringe 40 mg Given 12/16/2016 08:35 EDT 40 mg 40 mg, Subcutaneous, Daily, First dose on Sun12/15/16 at 1800, Administer in abdomen unless otherwise directed by prescriber. Notify physician if patient refuses. Given 12/17/2016 08:22 EDT 40 mg Given 12/18/2016 08:43 EDT 40 mg furosemide (LASIX) tablet 20 mg Given 12/17/2016 08:22 EDT 20 mg 20 mg, Oral, 2 times daily, First dose on Sun12/15/16 at 1530 Given 12/17/2016 17:23 EDT 20 mg Given 12/18/2016 08:43 EDT 20 mg pantoprazole (PROTONIX) EC tablet 40 mg Given 12/16/2016 08:35 EDT 40 mg 40 mg, Oral, Daily, First dose on Sun12/15/16 at 1800, DO NOT CRUSH OR CHEW. Given 12/17/2016 08:22 EDT 40 mg Given 12/18/2016 08:43 EDT 40 mg vancomycin (VANCOCIN) 1,250 mg in New Bag 12/15/2016 15:07 EDT 1,250 mg 250 mL/hr sodium chloride 0.9 % (NS) 250 mL IVPB 1,250 mg, Intravenous, at 250 mL/hr, Once, 12/15/16 at 1345, For 1 dose, Indication: OTHER vancomycin (VANCOCIN) 1,250 mg in New Bag 12/16/2016 03:15 EDT 1,250 mg 250 mL/hr sodium chloride 0.9 % (NS) 250 mL IVPB 1,250 mg, Intravenous, Administer over 60 Minutes, Every 12 hours, First dose on 12/16/16 at 0300, Indication: Cellulitis Not Responding to Beta-lactams Rate/Dose Verify 12/16/2016 03:16 EDT 250 mL/hr Rate/Dose Change 12/16/2016 04:16 EDT 5 mL/hr vancomycin (VANCOCIN) 1,250 mg in Rate/Dose Verify 12/16/2016 20:50 EDT 250 mL/hr sodium chloride 0.9 % (NS) 250 mL IVPB 1,250 mg, Intravenous, at 250 mL/hr, Every 18 hours, First dose on 12/16/16 at 2130, Indication: Cellulitis Not Responding to Beta-lactams New Bag 12/17/2016 16:20 EDT 1,250 mg 250 mL/hr New Bag 12/18/2016 08:45 EDT 1,250 mg 166.7 mL/hr in this encounter Insurance Payer Benefit Plan / Group Subscriber ID Type Phone Address [employer] HMO [id number] HCAP/JESSICA 80% JESSICA [id number] Home: [address] [place], [place] [phone] [place] [id number] as of this encounter
--- OUTSIDE RECORDS SUMMARY | 2018-05-19 09:03 | XMS RPT_ITS | Summary of Care ---
:1940 Author Organization [facility] Address [address] [id number] Phone Care Team Providers Name Role Phone Saray Allison MD Primary Care Provider Sherif Valles MD Unavailable Varsha Pineda CNP Unavailable Fran Burris MD Unavailable Inder Guillen MD Unavailable Virginia Lawrence RN Patient Navigator Unavailable Reason for Visit Reason Comments Transition Of Care hospital follow up from 02/05/17 Encounter Details Date Type Department Care Team Description 02/09/2017 Office Visit Saray Irving Malignant neoplasm of Physicians Primary MD Ayan head of pancreas Care #[facility] ([facility]) (Primary Dx) [address] [place] [address] [place] [address] [phone] Allergies Active Allergy Reactions Severity Noted Date Comments Ciprofloxacin Hives 12/01/2014 Hives in the 80s Gemcitabine 02/09/2017 Penicillin Hives 12/01/2014 Hives in the 80s Tetracycline 12/01/2014 Ondansetron Hcl Hives 11/30/2016 Itching, hives, shortness of breath, sweating as of this encounter Medications Prescription Sig. Disp. Refills Start Date End Date Status aspirin 81 MG EC Take 1 tablet Active tablet by mouth daily . mometasone-formoterol Inhale 2 puffs 01/11/2012 Active (DULERA) 200-5 2 (two) times a mcg/actuation HFAA day. oxygen Inhale 2.5 Active L/min nightly. omeprazole (PRILOSEC) Take 1 (one) 30 capsule 11 08/18/2016 08/18/2017 Active 40 MG capsule (40 mg capsuleIndications: total) by mouth Generalized abdominal daily. pain diphenhydrAMINE Take 25 mg by Active (BENADRYL) 25 mg mouth every 6 capsule (six) hours as needed for itching. enoxaparin (LOVENOX) Inject 0.4 mL 6.8 mL 0 02/06/2017 02/23/2017 Active 40 mg/0.4 mL (40 mg total) SyrgIndications: under the skin Abdominal Surgery Deep daily for 17 Vein Thrombosis days. Prevention, Pancreaticc Adenocarcinoma oxyCODONE (ROXICODONE) Take 1 (one) 90 tablet 0 02/05/2017 Active 5 MG immediate release tablet to 2 tablet (two) tablets (5-10 mg total) by mouth every 4 (four) hours as needed. metoclopramide Take 1 (one) 120 tablet 0 02/05/2017 03/07/2017 Active (REGLAN) 10 MG tablet tablet (10 mg total) by mouth 4 (four) times a day with meals and nightly. magnesium hydroxide Take 30 mL 900 mL 0 02/05/2017 03/07/2017 Active (MOM) 400 mg/5 mL Susp (2,400 mg total) by mouth daily. docusate sodium Take 1 (one) 10 capsule 0 02/05/2017 03/07/2017 Active (COLACE) 100 MG capsule (100 mg capsule total) by mouth 2 (two) times a day ; while taking narcotic pain medication. Hold for loose stools.. as of this encounter Active Problems Problem Noted Date Chemotherapy follow-up examination 11/20/2016 Encounter for antineoplastic [...] Vital Sign Reading Time Taken Blood Pressure 131/70 02/09/2017 10:47 AM EST Pulse 69 02/09/2017 10:47 AM EST Temperature 36.8 ??C (98.2 ??F) 02/09/2017 10:47 AM EST Respiratory Rate - - Oxygen Saturation 95% 02/09/2017 10:47 AM EST Inhaled Oxygen Concentration - - Weight 75.8 kg (167 lb) 02/09/2017 10:47 AM EST Height 172.7 cm (5' 8) 02/09/2017 10:47 AM EST Body Mass Index 25.39 02/09/2017 10:47 AM EST in this encounter Progress Notes Saray Allison MD - 02/09/2017 12:25 PM ESTSubjective Patient ID: Elbert Canales is a 76 y.o. male. HPI Dictation on: 02/09/2017 12:33 PM by: SARAY ALLISON [[id number]] Review of Systems Objective Physical Exam Constitutional: He appears well-developed and well-nourished. No distress. HENT: Mouth/Throat: Oropharynx is clear and moist and mucous membranes are normal. Mucous membranes are not dry. Cardiovascular: Normal rate, regular rhythm and normal heart sounds. Exam reveals no gallop and no friction rub. No murmur heard. Pulmonary/Chest: Effort normal. No respiratory distress. He has no wheezes. He has no rales. He exhibits no tenderness. Abdominal: Soft. Normal appearance and bowel sounds are normal. He exhibits no distension and no mass. There is no hepatosplenomegaly. There is no tenderness. There is no rigidity, no rebound, no guarding and no CVA tenderness. Incisions are all healing well and no evidence of infection. Skin: Skin is warm, dry and intact. Nursing note and vitals reviewed. Assessment/Plan: Diagnoses and all orders for this visit: Malignant neoplasm of head of pancreas (HCC) - follow up with specialists as scheduled. Return in about 3 months (around 05/10/2017) for Next scheduled follow up. Saray Allison MD in this encounter Plan of Treatment Upcoming Encounters Date Type Specialty Care Team Description 02/13/2017 Follow-Up Surgical Oncology Inder Guillen MD [address] [facility] [address] [place] [address] [phone] 02/15/2017 Office Visit Oncology Sherif Valles MD [address] [facility] [address] [place], [place] [id number] 05/11/2017 Office Visit Primary Care Saray Allison MD [address] [place] [address] [phone] Health Maintenance Due Date Last Done Comments TETANUS EVERY 10 YR 1940 ZOSTER VACCINE 2001 PNEUMOCOCCAL VACCINE AGE 65+ (1 of 2 - 2006 PCV13) SEQUENTIAL INFLUENZA VACCINE (#1) 2016 Low-dose CT Lung Cancer Screen 01/03/2018 01/03/2017, 10/16/2016 COLONOSCOPY 07/27/2021 07/27/2016, 01/12/2010 as of this encounter Implants Implanted Type Area Band Tumbler Device Expiration Model / Identifier Date Serial / Lot Port Implanted Mri Isp W/8fr Cath Powerport - [id number] Catheter - Right: BARD PERIP 12/26/2017 [id number] / Implanted: Qty: 1 on 12/04/2016 by Kota Vences MD Implant Subclavian / [id number] Cath 90cm Peritoneal Open End W/Wall Slits - [id number] Catheter - N/A: Abdomen MEDTRO [id number] / Implanted: Qty: 1 on 01/24/2017 by Inder Guillen MD Implant / Sealant 10ml Floseal Matrix Hemostatic W/Ndl-Free Adapter - [id number] N/A: Abdomen TOBAR BIO 03/20/2018 [id number] / Implanted: Qty: 2 on 01/24/2017 by Inder Guillen MD / [id number] as of this encounter Visit Diagnoses Diagnosis Malignant neoplasm of head of pancreas (HCC) - Primary Malignant neoplasm of head of pancreas Insurance Payer Benefit Plan / Group Subscriber ID Type Phone Address [facility] [place] MEDICARE [employer] M[employer] GOLD PLUS [facility] [id number] [facility] 80% [facility] [id number] Home: [address] [place], [place] [phone] [place] [id number] as of this encounter
--- OUTSIDE RECORDS SUMMARY | 2018-05-19 09:03 | XMS RPT_ITS | Summary of Care ---
:1940 Author Organization [facility] Address [address] [place] [address] Phone Care Team Providers Name Role Phone Jus Allison MD Primary Care Provider Sherif Valles MD Unavailable Varsha Pineda [employer] Unavailable Reason for Visit Reason Comments Pancreatic Cancer Encounter Details Date Type Department Care Team Description 11/16/2016 Office Visit [facility] Sherif Valles MD Malignant neoplasm of Center Oncology [address] [facility] head of pancreas (HCC) Clinic [address] (Primary Dx);Encounter [address] [place] [address] [place] [address] chemotherapy [phone] Allergies Active Allergy Reactions Severity Noted Date Comments Ciprofloxacin 12/01/2014 Penicillin 12/01/2014 Tetracycline 12/01/2014 as of this encounter Medications Prescription Sig. [...] (DULERA) 200-5 2 (two) times a mcg/actuation HF day. finasteride (PROSCAR) 5 Take 1 tablet 30 tablet 11 04/16/2015 Active mg tablet (5 mg total) by mouth daily. OCEAN NASAL 0.65 % Instill 2 09/25/2015 Active nasal spray sprays into each nostril as needed . alfuzosin (UROXATRAL) Take 1 tablet 30 tablet 11 10/08/2015 Active 10 mg 24 hr (10 mg total) tabletIndications: by mouth at Benign nodular bedtime. prostatic hyperplasia with lower urinary tract symptoms fluocinonide (LIDEX) Apply topically 15 g 0 01/17/2016 01/16/2017 Active 0.05 % 2 (two) times a creamIndications: day .5 gm BID Lichen simplex to L leg rash chronicus for 15 days. oxygen Inhale 2.5 Active L/min nightly. diphenoxylate-atropine Take 1 tablet Active (LOMOTIL) 2.5-0.025 mg by mouth 4 per tablet (four) times a day as needed for diarrhea. pancrelipase, Take 1 (one) 90 capsule 0 08/07/2016 08/07/2017 Active Kcv-Rgjn-Hpup, (CREON) capsule (12,000 12,000-38,000 -60,000 units of lipase unit CpDR capsule total) by mouth 3 (three) times a day with meals. omeprazole (PRILOSEC) Take 1 (one) 30 capsule 11 08/18/2016 08/18/2017 Active 40 MG capsule (40 mg capsuleIndications: total) by mouth Generalized abdominal daily. pain prochlorperazine Take 1 (one) 30 tablet 3 11/07/2016 Active (COMPAZINE) 10 MG tablet (10 mg tabletIndications: total) by mouth Malignant neoplasm of every 6 (six) head of pancreas (HCC) hours as needed for nausea. as of this encounter Active Problems Problem Noted Date Encounter for antineoplastic chemotherapy 11/16/2016 Pancreatic cancer [...] Tobacco Use Types Packs/Day Years Used Date Former Smoker 0.25 Smokeless Tobacco: Never Used Comments: 1/ PPD Alcohol Use Drinks/Week oz/Week Comments Yes rarely Sex Assigned at Date Recorded Not on file as of this encounter Last Filed Vital Signs Vital Sign Reading Time Taken Blood Pressure 156/76 11/16/2016 9:00 AM EDT Pulse 92 11/16/2016 9:00 AM EDT Temperature 36.7 ??C (98.1 ??F) 11/16/2016 9:00 AM EDT Respiratory Rate - - Oxygen Saturation - - Inhaled Oxygen Concentration - - Weight 75.7 kg (166 lb 12.8 oz) 11/16/2016 9:00 AM EDT Height - - Body Mass Index 25.36 11/16/2016 9:00 AM EDT in this encounter Progress Notes Sherif Valles MD - 11/16/2016 9:06 AM EDTFormatting of this note may be different from the original. [facility] [address] [place] [address] [phone] Hematology and Oncology Progress Note Patient Name: Elbert Canales MR #: [id number] : @ [facility]erged [facility] #: [id number] Date of Service: 11/16/16 Clinician: Sherif aVlles MD Diagnosis: Pancreatic cancer, stage IB (T2N0M0), inv head and uncinate process measuring 2.1 cm, Dx-10/31/2016. Treatment: Neoadjuvant chemotherapy with Gemzar and Abraxane ([id number]) started 11/16/16. Chief Complaint: Follow up, see below; History of Presenting Illness: Mr Elbert Canales is 76 year old male with pmh of COPD, DJD, BPH, Pancreatitis, Colon polyps, Skin cancer (not specified) referred here for further evaluation of pancreatic mass by Dr Allison. He present to PCP 07/10/16 for abdominal pain, bloating, and diarrhea. Stool cultures negative, but did show positive occult blood in stool and elevated amylase (172.1) and lipase (660). CBC diff and LFTs normal. Colonoscopy performed by Dr. Vences on 07/28 benign biopsies and polyps and recommended follow up colonoscopy in 3 years. Follow up with Dr. Allison on 08/18 patient still had persistent dullabdominal pain, anorexia and diarrhea. Exam revealed positive Ny???s sign and tenderness on exam so Dr. Allison ordered an abdominal US. Abdominal US on 08/23/16 showed IMPRESSION: 1. Normal right upper quadrant ultrasound. 2. No biliary duct dilatation or gallstones. CT Abdomen/Pelvis on 09/11/16 IMPRESSION: 1. There is a vague area rounded low-density within the pancreatic head measuring 1.1 cm which is nonspecific. While this could represent an underlying pancreatic mass, it can also possibly represent an area of more fatty infiltration involving the pancreatic head/uncinate process. Recommend further characterization with an MRI of the abdomen with and without IV contrast using the pancreas protocol. 2. Mild peripancreatic inflammatory stranding which may be secondary to acute pancreatitis. There is no obvious peripancreatic fluid or fluid collection identified. Pancreatic duct is slightly irregular and somewhat dilated particular involving the pancreatic neck and body measuring up to 5 mm in cameron meter. 3. No obvious dilatation of the intrahepatic or extrahepatic bile ducts. 4. No bulky lymphadenopathy. 5. Small fat-containing umbilical hernia. 6. Colonic diverticulosis without evidence of diverticulitis. 7. Ucvi-lg-msemorxr constipation. 8. Moderate prostatomegaly. MRI Abdomen on 10/05/16 IMPRESSION: 1. Irregularly shaped mass in the medial aspect of the pancreatic head and uncinate process measuring up to 2.1 cm and compatible with pancreatic adenocarcinoma. The mass causes obstruction of the pancreatic duct, but no biliary obstruction. There is an irregular margin of the mass with the adjacent peripancreatic fat and there are a few nonspecific small lymph nodes in the peripancreatic region. The medial margin of the mass is adjacent to the portal confluence without definite invasion. No evidence of superior mesenteric artery involvement. 2. Mild atrophy of the pancreatic body and tail with abnormal parenchymal signal which is nonspecific, possibly representing a component of pancreatitis. Tiny pancreatic cystic foci likely represent dilated ductal side branches. 3. Tiny hepatic cyst. No suspicious liver lesions. 4. Tiny left lower pole renal cyst. No suspicious renal lesions. 5. Atherosclerotic vascular disease CT chest with contrast 10/16/2016, showed no pattern of metastatic disease in the chest. Emphysematous changes were seen, greatest in the right upper lobe. Lab testing on 10/11/2016, showed an elevated CA 19-9 level of 354. CBC was within normal limits and CMP panel showed normal liver function tests and creatinine. Subsequently, he was evaluated by Dr. Guillen, and he recommended GI consultation with an endoscopic ultrasound for biopsy and for further management after biopsy for pancreatic cancer, he thinks this is borderline resectable with mild involvement of the lateral wall of the portal vein and recommended neoadjuvant chemotherapy in the form of gemcitabine and Abraxane for 3 cycles and then restaging witha CAT scan and proceed with surgical intervention with a Whipple procedure if he had a reasonable response and amenable for surgery. He underwent upper EUS on 10/31/2016, by Dr. Partha Muñoz at [place] which showed a mass in thepancreatic head and FNA was performed, there was no evidence of significant pathology in the left lobe of liver, pancreatic parenchymal abnormality consisting of atrophy, hyperechoic strands, hyperechoic foci and lobularity were noted in the pancreatic body and in the pancreatic tail. Normal lymph nodes were visualized. Pathology was significant for positive malignant cells consistent with adenocarcinoma. Labs on 11/14 showed normal CBC and a CMP profile with sodium 133 and glucose of 132. Other was unremarkable. He is here for followup and chemotherapy today. He has no new complaints, doing well. Denies any abdominal pain, weight loss, nausea, vomiting, diarrhea or constipation. His appetite is still very good. Assessment/Plan: Pancreatic cancer (adenocarcinoma), involving pancreatic head and uncinate process, measuring 2.1 cm, stage 1B (T2-N0-M0), borderline resectable, with mild involvement of the lateral wall of the portalvein. His baseline CA19-9 level is elevated at 354. He was evaluated by Dr. Guillen and recommended to have neoadjuvant chemotherapy, with gemcitabine and Abraxane. Today, we will plan to start chemotherapy with gemcitabine plus Abraxane day 1, 8, 15 every 28 days. We will an initially plan 3 cycles of chemotherapy and then re-stage, and depending on the response, he may plan chemoradiation and refer for surgical resection as per Dr. Guillen. Labs reviewed with him today, and I have answered all his questions. Again, reviewed briefly the side effects of the chemotherapy, and he is in agreement to start the chemotherapy from today. I will see him back in about 2 weeks with day 15 of chemo, unless he has any other issues next week. We will get CBC, CMP panel, and CA-19-9 level. The patient and his voiced understanding with the above plan. Review of Systems: The following system(s) were reviewed and pertinent findings noted: Pertinent Positive findings were : See medical summary. General: No fevers, no chills, no night sweats. Eyes: No visual changes. ENT: No sore throat. Cardiovascular: No chest pain. Respiratory: no shortness of breath, no cough. Gastrointestinal: No abdominal pain, no nausea, no vomiting, no diarrhea, no constipation Genitourinary: No dysurea. Musculoskeletal: no joint pains Skin: No rash. Neurologic: No headaches Psychiatric: No depression Hematology: No bleeding Allergic/Immunologic:No hives All other systems reviewed and are negative. Physical Examination: Physical Exam General: alert, coherent, no acute distress. ECOG PS 1 Head: Normocephalic and atraumatic. Eyes: anicteric, conjunctiva and lids normal. Mouth: No thrush. Neck: Neck supple, no thyromegaly, no JVD. Lymph: no cervical, axillary or inguinal adenopathy. Lungs: Clear to auscultation bilaterally. Cardiac: normal S1 and S2, no murmurs, or gallops. Gastro: soft, non-tender, No masses. : no abnormal mass in testicular area, right testis with implant. Extremity: no clubbing, no cyanosis. Mild ankle edema. Skin: no rashes, no ecchymosis or petechiae. Neuro: alert, oriented, no focal deficits, speech normal. Psych: Pt has a normal mood and affect. Vital Signs: BP (!) 156/76 (BP Location: Right arm) Pulse 92 Temp 98.1 ??F (36.7 ??C) (Temporal) Wt 75.7 kg (166 lb 12.8 oz) BMI 25.36 kg/m2 Last Height and Weight with BMI: 75.7 kg (166 lb 12.8 oz) Body mass index is 25.36 kg/(m^2). PMH/PSH/FH/SH: Past Medical History: Diagnosis Date ??? Arthritis ??? BPH (benign prostatic hyperplasia) ??? Cancer (HCC) skin cancer ??? Cataract ??? Chronic diarrhea current problem (07/21/16), stool specimen positive for blood ([facility]) per pt ??? Colon polyps 2009 benign ??? Complication of anesthesia difficulty waking up ??? COPD (chronic obstructive pulmonary disease) (HCC) ??? History of stress test ??? Pancreatic mass Past Surgical History: Procedure Laterality Date ??? APPENDECTOMY ??? COLONOSCOPY 2010 benign polyps found ??? COLONOSCOPY N/A 07/27/2016 Procedure: COLONOSCOPY; Surgeon: Kota Vences MD; Location: [facility]; Service: ??? PROSTATE BIOPSY ??? SINUS SURGERY [...] Social History Main Topics ??? Smoking status: Former Smoker Packs/day: 0.25 ??? Smokeless tobacco: Never Used Comment: 03/01 PPD ??? Alcohol use Yes Comment: rarely ??? Drug use: No ??? Sexual activity: Not on file Other Topics Concern ??? Not on file Social History Narrative History Drug Use No History Smoking Status ??? Former Smoker ??? Packs/day: 0.25 Smokeless Tobacco ??? Never Used Comment: 03/01 PPD Allergy Information: I have reviewed the patient's allergies. Ciprofloxacin; Penicillin; and Tetracycline Home Medications: Prior to Admission medications Medication Sig Start Date End Date Taking? Authorizing Provider alfuzosin (UROXATRAL) 10 mg 24 hr tablet Take 1 tablet (10 mg total) by mouth at bedtime. 10/08/15 09/22/16 Jus Allison MD aspirin 81 MG EC tablet Take 1 tablet by mouth daily Reasons: pt states he has not been taking for a couple of weeks. Historical Provider, diphenoxylate-atropine (LOMOTIL) 2.5-0.025 mg per tablet Take 1 tablet by mouth 4 (four) times a dayas needed for diarrhea. Historical Provider, finasteride (PROSCAR) 5 mg tablet Take 1 tablet (5 mg total) by mouth daily. 04/16/15 Jus Allison MD fluocinonide (LIDEX) 0.05 % cream Apply topically 2 (two) times a day .5 gm BID to L leg rash for 15days. 01/17/16 01/16/17 Jus Allison MD mometasone-formoterol (DULERA) 200-5 mcg/actuation HFAA Inhale 2 puffs 2 (two) times a day. 01/11/12 Historical Provider, MD WOLF NASAL 0.65 % nasal spray Instill 2 sprays into each nostril as needed . 09/25/15 Historical Provider, omeprazole (PRILOSEC) 40 MG capsule Take 1 (one) capsule (40 mg total) by mouth daily. 08/18/16 08/18/17 Jus Allison MD oxygen Inhale 2.5 L/min nightly. Historical Provider, pancrelipase, Ufh-Kszy-Bdop, (CREON) 12,000-38,000 -60,000 unit CpDR capsule Take 1 (one) capsule (12,000 units of lipase total) by mouth 3 (three) times a day with meals. 08/07/16 08/07/17 Jus Allison MD LABS: Pertinent latest labs reviewed in EMR and discussed with patient. WBC Date Value Ref Range Status 11/14/2016 8.09 4.50 - 11.00 K/mcL Final 07/07/2014 5.35 4.50 - 11.00 K/MCL RBC Date Value Ref Range Status 11/14/2016 4.61 4.50 - 5.90 M/mcL Final 07/07/2014 4.73 4.50 - 5.90 M/MCL Hemoglobin Date Value Ref Range Status 11/14/2016 14.5 13.5 - 17.5 g/dL Final 07/07/2014 15.3 13.5 - 17.5 G/DL Hematocrit Date Value Ref Range Status 11/14/2016 42.2 41.0 - 53.0 % Final 07/07/2014 45.2 41.0 - 53.0 % MCV Date Value Ref Range Status 11/14/2016 91.5 80.0 - 100.0 fL Final 07/07/2014 95.6 80.0 - 100.0 FL MCH Date Value Ref Range Status 11/14/2016 31.5 26.0 - 34.0 pg Final 07/07/2014 32.3 26.0 - 34.0 PG MCHC Date Value Ref Range Status 11/14/2016 34.4 31.0 - 37.0 g/dL Final Platelets Date Value Ref Range Status 11/14/2016 223 150 - 400 K/mcL Final RDW Date Value Ref Range Status 07/07/2014 12.5 11.6 - 14.8 % RDW - CV Date Value Ref Range Status 11/14/2016 12.7 11.6 - 14.8 % Final Sodium Date Value Ref Range Status 11/14/2016 133 (L) 135 - 145 mmol/L Final 07/07/2014 136 135 - 145 MMOL/L Potassium Date Value Ref Range Status 11/14/2016 4.4 3.5 - 5.1 mmol/L Final 07/07/2014 4.4 3.5 - 5.1 MMOL/L Chloride Date Value Ref Range Status 11/14/2016 95 (L) 98 - 108 mmol/L Final 07/07/2014 98 98 - 108 MMOL/L Bicarbonate Date Value Ref Range Status 11/14/2016 25 21 - 32 mmol/L Final 07/07/2014 28 21 - 32 MMOL/L Anion Gap Date Value Ref Range Status 11/14/2016 17 10 - 20 mmol/L Final Glucose Date Value Ref Range Status 11/14/2016 132 (H) 65 - 99 mg/dL Final 07/07/2014 94 65 - 99 MG/DL BUN Date Value Ref Range Status 11/14/2016 11 8 - 25 mg/dL Final 07/07/2014 12 8 - 25 MG/DL Creatinine Date Value Ref Range Status 11/14/2016 0.87 0.80 - 1.30 mg/dL Final 10/05/2016 0.7 (L) 0.8 - 1.3 mg/dL Final Serum Creatinine Date Value Ref Range Status 01/11/2012 0.9 0.8 - 1.3 MG/DL eGFR Date Value Ref Range Status 11/14/2016 84 >=60 mL/min/1.73 m2 Final GFR, Non Date Value Ref Range Status 01/11/2012 >60 >60 Comment: Test Units:mL/min/1.73m2 This Calculation is for Non Patients BUN/Creatinine Ratio Date Value Ref Range Status 11/14/2016 12.6 10.0 - 20.0 Final BUN/Creat Ratio Date Value Ref Range Status 07/07/2014 15.0 10.0 - 20.0 Comment: The above 18 analytes were performed by [address],[place] [address] Ordered on: 07/07/2014, EMMA ALLISON Tests Performed at: [facility] (Unless Otherwise Specified) [address] [place] [address], [address] [place] [address] #[id number] [facility] - Order ID:[id number] Sample ID:[id number] Total Protein Date Value Ref Range Status 11/14/2016 7.1 6.0 - 8.0 g/dL Final Albumin Date Value Ref Range Status 11/14/2016 4.0 3.2 - 5.2 g/dL Final Calcium Date Value Ref Range Status 11/14/2016 9.1 8.4 - 10.2 mg/dL Final 07/07/2014 10.0 8.4 - 10.2 MG/DL Alkaline Phosphatase Date Value Ref Range Status 11/14/2016 75 40 - 150 U/L Final AST Date Value Ref Range Status 11/14/2016 13 0 - 45 U/L Final ALT Date Value Ref Range Status 11/14/2016 12 0 - 40 U/L Final Total Bilirubin Date Value Ref Range Status 11/14/2016 0.3 0.0 - 1.3 mg/dL Final Diagnostic Tests: Pertinent available radiologic studies were reviewed. Follow Up: Return in about 2 weeks (around 11/30/2016) for Office Visit, Infusion - See Treatment Plan, Labs - See Treatment Plan. Orders Placed This Encounter Procedures ??? CA 19-9 Standing Status: Future Standing Expiration Date: 11/17/2017 ? Sherif Valles MD [facility] [address], [address] [place] [address] [phone] CC: MD Inder Fink MD in this encounter Plan of Treatment Upcoming Encounters Date Type Specialty Care Team Description 11/23/2016 Infusion/Injection Infusion Therapy Sherif Valles MD [address] [place] [address] [address] [place] [address] 11/30/2016 Office Visit Oncology Sherif Valles MD [address] [place] [address] [phone] 11/30/2016 Infusion/Injection Infusion Therapy Scheduled Tests Name Priority Associated Diagnoses Order Schedule CA 19-9 Routine Malignant neoplasm of head of Expected: 11/23/2016 pancreas (HCC) (Approximate), Expires: 11/17/2017 Health Maintenance Due Date Last Done Comments TETANUS EVERY 10 YR 1940 ZOSTER VACCINE 2001 PNEUMOCOCCAL VACCINE AGE 65+ (1 of 2 - 2006 PCV13) SEQUENTIAL INFLUENZA VACCINE (#1) 2016 COLONOSCOPY 07/27/2021 07/27/2016, 01/12/2010 as of this encounter Visit Diagnoses Diagnosis Malignant neoplasm of head of pancreas (HCC) - Primary Malignant neoplasm of head of pancreas Encounter for antineoplastic chemotherapy in this encounter Insurance Payer Benefit Plan / Group Subscriber ID Type Phone Address [employer] MANAGED MEDICARE [facility] [id number] [facility]/JESSICA 80% JESSCIA [id number] [phone] [place] [phone] as of this encounter
--- OUTSIDE RECORDS SUMMARY | 2018-05-19 09:03 | XMS RPT_ITS | Summary of Care ---
:1940 Author Organization [facility] Address [address] [place], [place] [id number] Care Team Providers Name Role Phone Jus Allison MD Primary Care Provider Sherif Valles MD Unavailable Varsha Pineda CNP Unavailable Fran Burris MD Unavailable Inder Guillen MD Unavailable Estefany Gaxiola RN Unavailable Unavailable Reason for Referral MRI/CAT/PET Scan (Routine) Status Reason Specialty Diagnoses / Referred By Referred To Procedures Contact Contact Pending Review Radiology Diagnoses Chemotherapy follow-up examination Malignant neoplasm of head of pancreas (HCC) Sherif Valles MD Procedures CT Chest Abdomen Pelvis With Contrast [address] [place] [address] Reason for Visit Reason Comments Pancreatic Cancer Encounter Details Date Type Department Care Team Description 08/16/2017 Office Visit [facility] Juancarlos Gabriel MD [address] [place] [address] [phone] Anemia due to chemotherapy (Primary Dx); Center Oncology Sherif Valles MD [address] [place] [address] [phone] Chemotherapy follow-up examination; Clinic Malignant neoplasm of head of pancreas (HCC) [address] [place] [address] Allergies Active Allergy Reactions Severity Noted Date [...] (one) 90 capsule 11 03/02/2017 03/02/2018 Active Aiu-Fmwd-Oljj, (CREON) capsule (12,000 12,000-38,000 -60,000 units of lipase unit CpDR capsule total) by mouth 3 (three) times a day with meals. loperamide (IMODIUM) 2 Take 2 mg by 05/01/2017 Active mg capsule mouth as needed for diarrhea. diphenhydrAMINE Take 25 mg by Active (BENADRYL) 25 mg mouth as needed capsule for itching. fluorouracil (5-FU) Infuse 2,205 1 each 0 06/11/2017 Active chemo home (two thousand infusionIndications: two hundred Malignant neoplasm of five) mg into a head of pancreas (HCC) venous catheter over 168 hr via ambulatory infusion pump.. aspirin 81 mg chewable Chew and Swallow 1 tablet 0 06/18/2017 06/18/2018 Active tabletIndications: 1 (one) tablet Malignant neoplasm of (81 mg total) head of pancreas (HCC) daily. as of this encounter Active Problems Problem Noted Date Anemia due to chemotherapy 07/16/2017 Diarrhea 03/08/2017 Chemotherapy follow-up examination 11/20/2016 Encounter for antineoplastic chemotherapy 11/16/2016 Malignant neoplasm of head of pancreas (HCC) 11/07/2016 BPH with obstruction/lower urinary tract symptoms 11/04/2015 Elevated PSA 11/04/2015 Abnormal PSA 10/28/2015 Chronic obstructive pulmonary disease (HCC) 10/08/2015 Pure [...] mass 10/11/2016 11/16/2016 Prostatitis, chronic 11/10/2015 02/09/2017 Immunizations Name Dates Previously Given Next Due Pneumococcal, Unspecified 10/27/2014 as of this encounter Social History Tobacco Use Types Packs/Day Years Used Date Current Every Day Smoker 1 60 Smokeless Tobacco: Never Used Alcohol Use Drinks/Week oz/Week Comments Yes rarely 1-2 week Sex Assigned at Date Recorded Not on file as of this encounter Last Filed Vital Signs Vital Sign Reading Time Taken Blood Pressure 125/68 08/16/2017 11:01 AM EDT Pulse 73 08/16/2017 11:01 AM EDT Temperature 36.9 ??C (98.4 ??F) 08/16/2017 11:01 AM EDT Respiratory Rate - - Oxygen Saturation - - Inhaled Oxygen Concentration - - Weight 59.6 kg (131 lb 4.8 oz) 08/16/2017 11:01 AM EDT Height 172.7 cm (5' 8) 08/16/2017 11:01 AM EDT Body Mass Index 19.96 08/16/2017 11:01 AM EDT in this encounter Progress Notes Sherif Valles MD - 08/16/2017 11:09 AM EDTFormatting of this note may be different from the original. [facility] [address] [place] [id number] Hematology and Oncology Progress Note Patient Name: Hi Canales MR #: [id number] : @ [facility] #: [id number] Date of Service: 08/16/17 Clinician: Sherif Valles MD Assessment/Plan: Pancreatic cancer (adenocarcinoma), involving pancreatic head and uncinate process, 2.1 cm, stage 1B(T2-N0-M0), borderline resectable, with involvement of lateral wall of portal vein. Baseline CA19-9 level elevated at 354. He was evaluated by Dr. Guillen and recommended to have neoadjuvant chemotherapy, with gemcitabine and Abraxane. Neoadjuvant chemotherapy with gemcitabine plus Abraxane (D1,8,15q 28 days), was started from 11/16/16. He is s/p cycle 1, d15 of chemo on 12/07/16. He had significant problem with gemcitabine and had developed cellulitis that was thought to be initially secondary to infection, but later on considered to be related to pseudocelluliits secondary to gemcitabine and further chemotherapy was stopped, and then he underwent Whipple procedure by Dr. Gulilen on 01/24/2017. He was found to have a stage IIB (T3 N1 M0) disease with positive margin at radial/circumferential margin around the portal vein area. He has some high-risk features including perineal invasion and tumor extension at extrapancreatic soft tissue. We planned to start him on following regimen; Infusional 5FU per RTOG trial 97-04, data published in [facility] on May 01, 2007. According to this, chemotherapy prior to chemoradiation with continuous 5-FU 250 mg (225mg) per sq m per day for 3 weeks then between 1-2 weeks after completion of chemotherapy, chemoradiation was initiated with 50.4 Gy of radiation with continuous infusion of 250 (225mg) mg per sq m 5-FU daily throughout the radiation therapy, and another phase of chemotherapy was initiated 3-5 weeks after completion of chemoradiation therapy for 3 months. ?? He is s/p weekly 5FU from 05/08/17 to 05/22/17. He tolerated chemotherapy fairly well, but in second week, he had some diarrhea and evidence of mucositis and third week, he felt sick, and he took another extra week of break from the chemo. He is s/p chemoRT with continuous 5FU from 06/12/17 with dose reduction in chemotherapy by 20% with radiation, completed 07/19. Labs are overall stable, CA 19-9 level michael but still elevated at 95 from 120.8 Diarrhea. Controlled now with diet management, on Creon and take imodium 2 tablets with initial BM,then 1 tablet with each subsequent BM not to exceed 12 tablets in 24 hours. Today, I reviewed his labs and CT scan finding. I discussed about postradiation chemotherapy as mentioned above and planned, but he is very reluctant and indicated to me that he wants to forego more chemotherapy now in lieu of a much better quality of life he is having off chemotherapy now. He is aware of the risk of early recurrence off chemotherapy and he is willing to take that risk. In view ofhis decision, I will plan to continue to observe him with repeat labs and CT scan in about 3 months. He and his voiced understanding. He was encouraged to call the clinic with any other questions or concern. Chief Complaint: Follow up, pancreatic cancer. He is doing very well, has good appetite. He denies any fevers, chills, nausea, vomiting or abdominal pain. His diarrhea is pretty stable, mostly in the morning. Diagnosis: Pancreatic cancer, stage IB (T2N0M0), head and uncinate process, 2.1 cm, Dx-10/31/2016. Treatment: He is status post neoadjuvant chemotherapy with gemcitabine plus Abraxane from 11/16/2016 to 12/07/2016, 1 cycle. Status post Whipple procedure by Dr. Guillen on 01/24/2017. S/P weekly 5FU from 05/08/17 to 05/22/17. Currently on concurrent chemoRT from 06/12/17. History of Presenting Illness: Mr Hi Canales is 76 year old male with pmh of COPD, DJD, BPH, Pancreatitis, Colon polyps, Skin cancer (not specified) previously referred here for further evaluation of pancreatic [...] Colonic diverticulosis without evidence of diverticulitis. 7. Yncm-ol-aqudhliq constipation. 8. Moderate prostatomegaly. MRI Abdomen on [...] on 10/31/2016, by Dr. Partha Muñoz at [place] which showed a mass in thepancreatic head and FNA was performed, there was no evidence of significant pathology in the left lobe of liver, pancreatic parenchymal abnormality consisting of atrophy, hyperechoic strands, hyperechoic foci and lobularity were noted in the pancreatic body and in the pancreatic tail. Normal lymph nodes were visualized. Pathology was significant for positive malignant cells consistent with adenocarcinoma. He was admitted at [facility] on 12/09/2016, with 1 day of increased pain at the MediPort site with redness and pain in his shoulder and right lower extremity. He had a MediPort placed on 12/[address] Vences. Cultures were negative and he was treated with antibiotics and according to the hospitalist it resolved. As far as the leg swelling, he has bilateral leg swelling and right was more than the left. It was negative for DVT on venous Doppler. He was discharged yesterday. He was again discharged from [facility] on 12/18/2016. He was admitted on 12/15 for right lower extremity cellulitis, seen by Infectious Disease, and he was treated with antibiotics with negative cultures and the suspected cause of cellulitis was thought to be pseudocellulitis from gemcitabine. Currentlyon edema controlled with leg elevation and Lasix. A venous Doppler on 12/15/2016, showed no evidence of deep or superficial vein thrombosis in either lower extremity. He was evaluated by Dr. Guillen on 12/28 and is scheduled for tentative Whipple's procedure after theThanksgiving in about 2 weeks. In the interim, he obtained a CT chest, abdomen, pelvis with IV contrast on 01/03 which showed no evidence of metastatic disease in the chest. There was a lobulated hypoenhancing mass in the medial aspect of the pancreatic head compatible with known adenocarcinoma. The lesions have probably mildly enlarged since August of 2016. Obstruction of the main pancreatic duct with resultant atrophy of the body and the tail have also mildly increased since that time. The medial margin of the mass was adjacent to the portal confluence, but there was no definitive evidence of major vascular invasion. There was tiny hepatic cyst and questionable subtle focus of new hypoenhancement in the inferior right hepatic lobe. He underwent a Whipple procedure on 01/24/2017. Surgical pathology showed adenocarcinoma, 2.7 cm, 4/11 lymph nodes positive, grade 2, with extrapancreatic soft tissue tumor extension, positive margin at radial circumferential margin at the portal vein area, no lymphovascular invasion was present. Perineal invasion was present. Pathology staging was 2b (T3 N1). Lab testing done on February 22, 2017, showed CBC with normal WBC, hemoglobin 11.4, and normal platelet. CMP panel remarkable with total protein 5.9, creatinine 0.61, albumin 5.9. Normal liver panel.CA19-9 level at 53.5. C difficile was negative in the stool on 03/03 and stool panel was negative for any infection. CT of chest, abdomen, and pelvis with contrast on February 22, 2017, showed postoperative changes from interval Whipple procedure. A prior pancreatic mass has been resected without definitive recurrent malignancy. Prior lymphadenopathy near the pancreas is not visualized and presumably resected. No evidence of metastatic burden in the thorax. Extensive emphysematous changes seen in the upper lobes. Equivocal vague hypoattenuating lesion in segment 8 of the liver was seen, which needs to be further followed up in the future. Stable appearance of left thyroid nodule. CT chest, abdomen, pelvis with contrast 04/24/2017 showed no definitive evidence of recurrent or residual neoplasm. He is status post Whipple. Advanced emphysema was noted. CT chest, abdomen, and pelvis with contrast 08/13/2017 showed no evidence of significant lymphadenopathy or other abnormal mass, postoperative changes, and extensive pulmonary emphysema. Labs from 08/13/2017 showed improvement in the CA19-9 from 120.8 to 95.1. CMP profile is unremarkable, and CBC with WBC 1, hemoglobin 12.5, and platelet 142. Review of Systems: 12 point review of systems was performed and was negative except as described in the history of present illness and with the following additions: no fevers, night sweats, chest pain, nausea, vomiting, diarrhea, constipation, urinary sx, headache, acute visual changes. Physical Examination: Physical Exam General: alert, coherent, no acute distress. ECOG PS 1-2 Head: Normocephalic and atraumatic. Eyes: anicteric, conjunctiva and lids normal. Mouth: No thrush. Neck: Neck supple, no thyromegaly, no JVD. Lymph: no cervical adenopathy. Mediport: non tender. Lungs: Clear to auscultation bilaterally. Cardiac: normal S1 and S2, no murmurs, or gallops. Gastro: soft, No masses. Incisions well healed. Ventral hernia+ Extremity: no clubbing, no cyanosis. RLE edema better. Skin: RLE erythema, Neuro: alert, oriented, no focal deficits, speech normal. Psych: Pt has a normal mood and affect. Vital Signs: BP 125/68 (BP Location: Right arm) Pulse 73 Temp 98.4 ??F (36.9 ??C) (Temporal) Ht 5' 8 Wt 59.6 kg (131 lb 4.8 oz) BMI 19.96 kg/m?? Last Height and Weight with BMI: 59.6 kg (131 lb 4.8 oz) 5 8 Body mass index is 19.96 kg/m??. PMH/PSH/FH/SH: Past Medical History: Diagnosis Date ??? Arthritis ??? BPH (benign prostatic hyperplasia) ??? Cancer (HCC) skin cancer ??? Cataract ??? Chemotherapy adverse reaction 12/01/2016 has had 2 treatments-- getting port now. Had adverse reaction to zofran after first treatment ??? Chronic diarrhea current problem (07/21/16), stool specimen positive for blood ([facility]) per pt ??? Colon polyps 2010 benign [...] Procedure: COLONOSCOPY; Surgeon: Kota Vences MD; Location: [facility] Endo; Service: ??? INSERTION SUBCUTANEOUS PORT N/A 12/04/2016 Procedure: PORT PLACEMENT ; Surgeon: Kota Vences MD; Location: [facility] Main OR; Service: ??? PROSTATE BIOPSY ??? SINUS SURGERY 2003 ??? WHIPPLE PROCEDURE N/A 01/24/2017 Procedure: WHIPPLE PROCEDURE; Surgeon: Inder Guillen MD; Location: [facility] Main OR; Service: Family History Problem Relation Age of Onset [...] ??? Not on file Social History Narrative ??? No narrative on file History Drug Use No History Smoking Status ??? Current Every Day Smoker ??? Packs/day: 1.00 ??? Years: 60.00 Smokeless Tobacco ??? Never Used Allergy Information: I have reviewed the patient's allergies. Ciprofloxacin; Gemzar [gemcitabine]; Penicillin; Tetracycline; and Zofran (as hydrochloride) [ondansetron hcl] Home Medications: Prior to Admission medications Medication [...] Inhale 2.5 L/min nightly. Historical Provider, pancrelipase, Xuy-Tozp-Tyxb, (CREON) 12,000-38,000 -60,000 unit CpDR capsule Take 1 (one) capsule (12,000 units of lipase total) by mouth 3 (three) times a day with meals. 08/07/16 08/07/17 Jus Allison MD LABS: Pertinent latest labs reviewed in EMR and discussed with patient. WBC Date Value Ref Range Status 08/13/2017 4.01 (L) 4.50 - 11.00 K/mcL Final 07/07/2014 5.35 4.50 - 11.00 K/MCL RBC Date Value Ref Range Status 08/13/2017 3.82 (L) 4.50 - 5.90 M/mcL Final 07/07/2014 4.73 4.50 - 5.90 M/MCL Hemoglobin Date Value Ref Range Status 08/13/2017 12.5 (L) 13.5 - 17.5 g/dL Final 07/07/2014 15.3 13.5 - 17.5 G/DL Hematocrit Date Value Ref Range Status 08/13/2017 36.6 (L) 41.0 - 53.0 % Final 07/07/2014 45.2 41.0 - 53.0 % MCV Date Value Ref Range Status 08/13/2017 95.8 80.0 - 100.0 fL Final 07/07/2014 95.6 80.0 - 100.0 FL MCH Date Value Ref Range Status 08/13/2017 32.7 26.0 - 34.0 pg Final 07/07/2014 32.3 26.0 - 34.0 PG MCHC Date Value Ref Range Status 08/13/2017 34.2 31.0 - 37.0 g/dL Final Platelets Date Value Ref Range Status 08/13/2017 142 (L) 150 - 400 K/mcL Final RDW Date Value Ref Range Status 07/07/2014 12.5 11.6 - 14.8 % RDW - CV Date Value Ref Range Status 08/13/2017 15.5 (H) 11.6 - 14.8 % Final Sodium Date Value Ref Range Status 08/13/2017 133 (L) 135 - 145 mmol/L Final 07/07/2014 136 135 - 145 MMOL/L Potassium Date Value Ref Range Status 08/13/2017 4.1 3.5 - 5.1 mmol/L Final 07/07/2014 4.4 3.5 - 5.1 MMOL/L Chloride Date Value Ref Range Status 08/13/2017 97 (L) 98 - 108 mmol/L Final 07/07/2014 98 98 - 108 MMOL/L Bicarbonate Date Value Ref Range Status 08/13/2017 25 21 - 32 mmol/L Final 07/07/2014 28 21 - 32 MMOL/L Anion Gap Date Value Ref Range Status 08/13/2017 15 10 - 20 mmol/L Final Glucose Date Value Ref Range Status 08/13/2017 119 (H) 65 - 99 mg/dL Final 07/07/2014 94 65 - 99 MG/DL BUN Date Value Ref Range Status 08/13/2017 8 8 - 25 mg/dL Final 07/07/2014 12 8 - 25 MG/DL Creatinine Date Value Ref Range Status 08/13/2017 0.65 (L) 0.80 - 1.30 mg/dL Final 10/05/2016 0.7 (L) 0.8 - 1.3 mg/dL Final Serum Creatinine Date Value Ref Range Status 01/11/2012 0.9 0.8 - 1.3 MG/DL eGFR Date Value Ref Range Status 08/13/2017 95 >=60 mL/min/1.73 m2 Final GFR, Non Date Value Ref Range Status 01/11/2012 >60 >60 Comment: Test Units:mL/min/1.73m2 This Calculation is for Non Patients BUN/Creatinine Ratio Date Value Ref Range Status 08/13/2017 12.3 10.0 - 20.0 Final BUN/Creat Ratio Date Value Ref Range Status 07/07/2014 15.0 10.0 - 20.0 Comment: The above 18 analytes were performed by [facility] [address] [facility],[place] [address] Ordered on: 07/07/2014, EMMA ALLISON Tests Performed at: [facility] (Unless Otherwise Specified) [address] [place] [address], [place], [address] - [facility] #[id number] [facility] - Order ID:[id number] Sample ID:[id number] Total Protein Date Value Ref Range Status 08/13/2017 6.1 6.0 - 8.0 g/dL Final Albumin Date Value Ref Range Status 08/13/2017 3.4 3.2 - 5.2 g/dL Final Calcium Date Value Ref Range Status 08/13/2017 8.7 8.4 - 10.2 mg/dL Final 07/07/2014 10.0 8.4 - 10.2 MG/DL Alkaline Phosphatase Date Value Ref Range Status 08/13/2017 93 40 - 150 U/L Final AST Date Value Ref Range Status 08/13/2017 20 0 - 45 U/L Final ALT Date Value Ref Range Status 08/13/2017 12 0 - 40 U/L Final Total Bilirubin Date Value Ref Range Status 08/13/2017 0.4 0.0 - 1.3 mg/dL Final Diagnostic Tests: Pertinent available radiologic studies were reviewed. Follow Up: Return in about 3 months (around 11/16/2017) for Office Visit, Imaging - See orders, Labs - See Treatment Plan. Orders Placed This Encounter Procedures ??? CT Chest Abdomen Pelvis With Contrast Standing Status: Future Standing Expiration Date: 08/17/2018 Scheduling Instructions: If patient is allergic to contrast, appointment must be scheduled in a hospital CT dept.: [place], [facility] [place], [place], [place], [facility], [place], [place] or [facility], Sunday thru Sunday only. If the patient has a contrast allergy, please contact [facility] Radiology Chart compilers for assistance with ordering Radiology Premedication Protocol. Schedule at the main hospital if patient is also having a procedure done at the hospital (ex: NucMed Scan). CT Abdomen and or Pelvis with MRI - schedule CT at least 2 hours before or 2 hours after MRI. NEW: If patient age under 18 years, do not schedule at [facility] Imaging Doctors - call the department at [phone] when scheduling any child from the age of 6 months to 5 years to see if medication is necessary [place] - Call CT [phone] before scheduling a CTA and a CT on the same day - there is a chance these two tests cannot be performed on the same day. Do not schedule any CT with contrast after 5pm. The last available with contrast CT is 4:30pm. [place] - age limit 16 and over [place] - when the caller is requesting [place] for their CT please scan [place] as well. IfBing appointment is sooner notify caller and ask if they would like that slot. Order Specific Question: Reason for Exam: Answer: Pancreatic cancer s/p surgery, s/p chemoRT, for follow up., Order Specific Question: Does the patient require moderate sedation? Answer: No Order Specific Question: Does this exam require IV hydration? Answer: No ??? CBC and Differential Standing Status: Future Standing Expiration Date: 08/17/2018 ??? Comprehensive Metabolic Panel Standing Status: Future Standing Expiration Date: 08/17/2018 ??? CA 19-9 Standing Status: Future Standing Expiration Date: 08/17/2018 ? Sherif Valles MD [facility] [address], [address] [place] [phone] CC: MD Inder Fink MD Andrew Freeman, MD in this encounter Plan of Treatment Upcoming Encounters Date Type Specialty Care Team Description 09/20/2017 Nurse Only Infusion Therapy 11/13/2017 Nurse Only Infusion Therapy 11/13/2017 Appointment Radiology Sherif Valles MD [address] [place] [id number] 11/15/2017 Office Visit Oncology Sherif Valles MD [address] [place] [phone] Scheduled Tests Name Priority Associated Diagnoses Order Schedule CBC and Differential Routine Chemotherapy follow-up Expected: 11/14/2017 examination (Approximate), Malignant neoplasm of head Expires: 08/17/2018 of pancreas (HCC) Comprehensive Metabolic Routine Chemotherapy follow-up Expected: 11/14/2017 Panel examination (Approximate), Malignant neoplasm of head Expires: 08/17/2018 of pancreas (HCC) CA 19-9 Routine Chemotherapy follow-up Expected: 11/14/2017 examination (Approximate), Malignant neoplasm of head Expires: 08/17/2018 of pancreas (HCC) CT Chest Abdomen Pelvis With Routine Chemotherapy follow-up Expected: 11/14/2017 Contrast examination (Approximate), Malignant neoplasm of head Expires: 08/17/2018 of pancreas (HCC) Health Maintenance Due Date Last Done Comments TETANUS EVERY 10 YR 1940 ZOSTER VACCINE 2001 PNEUMOCOCCAL VACCINE AGE 65+ (1 of 2006 2 - PCV13) SEQUENTIAL INFLUENZA VACCINE 10/27/2017 (Season Ended) Low-dose CT Lung Cancer Screen 08/13/2018 08/13/2017, 04/24/2017, 02/22/2017, Additional history exists as of this encounter Implants Implanted Type Area [employer] Metal Device Expiration Model / Identifier Date Serial / Lot Port Implanted Mri Isp W/8fr Cath Powerport - [id number] Catheter - Right: BARD PERIP 12/26/2017 [id number] / Implanted: Qty: 1 on 12/04/2016 by Kota Vences MD Implant Subclavian / [id number] Cath 90cm Peritoneal Open End W/Wall Slits - [id number] Catheter - N/A: Abdomen MEDTRO SHAGGY [id number] / Implanted: Qty: 1 on 01/24/2017 by Inder Guillen MD Implant / Sealant 10ml Floseal Matrix Hemostatic W/Ndl-Free Adapter - [id number] N/A: Abdomen TOBAR BIO 03/20/2018 [id number] / Implanted: Qty: 2 on 01/24/2017 by Inder Guillen MD / [id number] as of this encounter Visit Diagnoses Diagnosis Anemia due to chemotherapy - Primary Antineoplastic chemotherapy induced anemia Chemotherapy follow-up examination Malignant neoplasm of head of pancreas (HCC) Malignant neoplasm of head of pancreas
--- OUTSIDE RECORDS SUMMARY | 2018-05-19 09:03 | XMS RPT_ITS | Summary of Care ---
:1940 Author Organization [facility] Address [address] [id number] Phone Care Team Providers Name Role Phone Jus Allison MD Primary Care Provider Sherif Valles MD Unavailable Varsha Pineda CNP Unavailable Fran Burris MD Unavailable Inder Guillen MD Unavailable Virginia Lawrence RN Patient Navigator Unavailable Reason for Visit Reason Comments Diarrhea been ongoing for several weeks, everything he eats goes right through him, has lost about 15 pounds since last appt. thinks diverticulitis is back Encounter Details Date Type Department Care Team Description 03/05/2017 Office Visit Paulette Jus Story Diarrhea, unspecified type (Primary Dx); Physicians Primary MD Ayan Diverticulitis of large intestine without perforation or abscess without bleeding Care #6 [facility] [address] [place] [address] [place] [address] [phone] Allergies Active Allergy Reactions Severity Noted Date [...] capsule (six) hours as needed for itching. oxyCODONE (ROXICODONE) Take 1 (one) 90 tablet [...] narcotic pain medication. Hold for loose stools.. pancrelipase, Take 1 (one) 90 capsule 11 03/02/2017 03/02/2018 Active Wfx-Xrfu-Cshu, (CREON) capsule (12,000 12,000-38,000 -60,000 units of lipase unit CpDR capsule total) by mouth 3 (three) times a day with meals. sulfamethoxazole-trime Take 1 (one) 20 tablet 0 03/05/2017 03/15/2017 Active thoprim (BACTRIM tablet by mouth DS,SEPTRA DS) 800-160 2 (two) times a mg per day for 10 tabletIndications: days. Diverticulitis of large intestine without perforation or abscess without bleeding metroNIDAZOLE (FLAGYL) Take 1 (one) 30 tablet 0 03/05/2017 03/05/2018 Active 500 MG tablet (500 mg tabletIndications: total) by mouth Diverticulitis of 3 (three) times large intestine a day with without perforation or meals. abscess without bleeding as of this encounter Active Problems Problem [...] Vital Sign Reading Time Taken Blood Pressure 159/83 03/05/2017 11:26 AM EST Pulse 82 03/05/2017 11:26 AM EST Temperature 36.6 ??C (97.8 ??F) 03/05/2017 11:26 AM EST Respiratory Rate - - Oxygen Saturation 97% 03/05/2017 11:26 AM EST Inhaled Oxygen Concentration - - Weight 68.5 kg (151 lb) 03/05/2017 11:26 AM EST Height 172.7 cm (5' 8) 03/05/2017 11:26 AM EST Body Mass Index 22.96 03/05/2017 11:26 AM EST in this encounter Progress Notes Jus Allison MD - 03/05/2017 11:40 AM ESTFormatting of this note may be different from the original. Subjective Patient ID: Elbert Canales is a 76 y.o. male. Chief Complaint Patient presents with ??? Diarrhea been ongoing for several weeks, everything he eats goes right through him, has lost about 15 pounds since last appt. thinks diverticulitis is back Diarrhea This is a new problem. The current episode started more than 1 month ago. The problem occurs 5 to 10times per day. The problem has been gradually worsening. The stool consistency is described as mucous. The patient states that diarrhea awakens him from sleep. Associated symptoms include abdominal pain (LLQ mostly), bloating, chills and weight loss. Pertinent negatives include no coughing, fever, increased flatus, myalgias, sweats or vomiting. Nothing aggravates the symptoms. Risk factors include recent hospitalization and recent antibiotic use. He has tried anti-motility drug for the symptoms. The treatment provided mild relief. His past medical history is significant for a recent abdominal surgery. Review of Systems Constitutional: Positive for chills and weight loss. Negative for fever. Respiratory: Negative for cough. Gastrointestinal: Positive for abdominal pain (LLQ mostly), bloating and diarrhea. Negative for flatus and vomiting. Musculoskeletal: Negative for myalgias. Objective Physical Exam Constitutional: He appears well-developed [...] mass. There is no hepatosplenomegaly. There is tenderness (diffuse, but maximal in the LLQ). There is guarding (mild in LLQ). There is no rigidity, no rebound and no CVA tenderness. Skin: Skin is warm, dry and intact. Nursing note and vitals reviewed. Assessment/Plan: Diagnoses and all orders for this visit: Diarrhea, unspecified type - Stool/GI PCR Panel; Future - Highly suspect pancreatic insufficiency as the cause. If above is negative we'll start enzymes. Diverticulitis of large intestine without perforation or abscess without bleeding - sulfamethoxazole-trimethoprim (BACTRIM DS,SEPTRA DS) 800-160 mg per tablet; Take 1 (one) tablet by mouth 2 (two) times a day for 10 days. - metroNIDAZOLE (FLAGYL) 500 MG tablet; Take 1 (one) tablet (500 mg total) by mouth 3 (three) times a day with meals. Return if symptoms worsen or fail to improve. Jus Allison MD in this encounter Plan of Treatment Upcoming Encounters Date Type Specialty Care Team Description 03/06/2017 Office Visit Oncology Sherif Valles MD 801 [facility] [address] [place] [address] 03/06/2017 Follow-Up Surgical Oncology Inder Guillen MD 500 [facility] [address] [place] [address] [phone] 03/26/2017 Radiation Oncology Radiation Oncology 04/25/2017 Radiation Oncology Radiation Oncology 05/11/2017 Office Visit Primary Care Jus Allison MD #6 [place] [address] Pending Results Name Priority Associated Diagnoses Date/Time Stool/GI PCR Panel Routine Diarrhea, unspecified type 03/05/2017 12:39 PM EST Scheduled Tests Name Priority Associated Diagnoses Order Schedule Stool/GI PCR Panel Routine Diarrhea, unspecified type 1 Occurrences starting 03/05/2017 until 03/05/2018 Health Maintenance Due Date Last Done Comments TETANUS EVERY 10 YR 1940 ZOSTER VACCINE 2001 PNEUMOCOCCAL VACCINE AGE 65+ (1 of 2 2006 - PCV13) SEQUENTIAL INFLUENZA VACCINE (#1) 2016 Low-dose CT Lung Cancer Screen 02/22/2018 02/22/2017, 01/03/2017, 10/16/2016 COLONOSCOPY 07/27/2021 07/27/2016, 01/12/2010 as of this encounter Implants Implanted Type Area Mobile Application Developer Device Expiration Model / Identifier Date Serial / Lot Port Implanted Mri Isp W/8fr Cath Powerport - [id number] Catheter - Right: BARD PERIP 12/26/2017 [id number] / Implanted: Qty: 1 on 12/04/2016 by Kota Vences MD Implant Subclavian / [id number] Cath 90cm Peritoneal Open End W/Wall Slits - [id number] Catheter - N/A: Abdomen MEDTRO SHAGGY [id number] / Implanted: Qty: 1 on 01/24/2017 by Inder Guillen MD Implant / Sealant 10ml Floseal Matrix Hemostatic W/Ndl-Free Adapter - [id number] N/A: Abdomen TOBAR BIO 03/20/2018 [id number] / Implanted: Qty: 2 on 01/24/2017 by Inder Guillen MD / [id number] as of this encounter Visit Diagnoses Diagnosis Diarrhea, unspecified type - Primary Diverticulitis of large intestine without perforation or abscess without bleeding Insurance Payer Benefit Plan / Group Subscriber ID Type Phone Address HUMANA MANAGED MEDICARE HUMANA MCR GOLD PLUS HMO [id number] [facility]/JESSICA 80% JESSICA [id number] [phone] [place] [address] as of this encounter
--- OUTSIDE RECORDS SUMMARY | 2018-05-19 09:03 | XMS RPT_ITS | Summary of Care ---
:1940 Author Organization [facility] Address [address] [place] [address] Phone Care Team Providers Name Role Phone Jus Allison MD Primary Care Provider Sherif Valles MD Unavailable Varsha Pineda [facility] Unavailable Fran Burris MD Unavailable Reason for Visit Reason Comments Pancreatic Cancer port draw Encounter Details Date Type Department Care Team Description 12/07/2016 Nurse Only [facility] Sherif Valles MD Malignant neoplasm of Center Chemo 801 [facility] head of pancreas (HCC) Infusion Therapy Anand [address] (Primary Dx);Encounter [address] [place] [address] [place] [address] chemotherapy [phone] Allergies Active Allergy Reactions Severity Noted Date [...] 200-5 2 (two) times a mcg/actuation day. finasteride (PROSCAR) 5 Take 1 tablet 30 tablet 04/16/2015 Active mg tablet (5 mg total) [...] (one) 90 capsule 0 08/07/2016 08/07/2017 Active Jsl-Yfob-Vuyw, (CREON) capsule (12,000 12,000-38,000 -60,000 units of [...] pancreas (HCC) hours as needed for nausea. dexamethasone Take 2 (two) 12 tablet 6 11/20/2016 12/18/2016 Active (DECADRON) 4 MG tablet tablets (8 mg total) by mouth 2 (two) times a day with meals START TAKING DAY AFTER CHEMO FOR 2 DAYS. HYDROcodone-acetaminoph Take 1 (one) 20 tablet 0 12/04/2016 Active en (NORCO) 5-325 mg per tablet to 2 tablet (two) tablets by mouth every 6 (six) hours as needed for pain Take with food.. as of this encounter Active Problems Problem Noted Date Rash 11/20/2016 Chemotherapy follow-up examination 11/20/2016 Encounter [...] Vital Sign Reading Time Taken Blood Pressure - - Pulse - - Temperature - - Respiratory Rate - - Oxygen Saturation - - Inhaled Oxygen Concentration - - Weight 75.6 kg (166 lb 9.6 oz) 12/07/2016 8:59 AM EDT Height 172.7 cm (5' 8) 12/07/2016 8:59 AM EDT Body Mass Index 25.33 12/07/2016 8:59 AM EDT in this encounter Plan of Treatment Upcoming Encounters Date Type Specialty Care Team Description 12/21/2016 Nurse Only Infusion Therapy 12/21/2016 Office Visit Oncology Sherif Valles MD [address] [place] [address] [phone] 12/21/2016 Infusion/Injection Infusion Therapy Health Maintenance Due Date Last Done Comments TETANUS EVERY 10 YR 1940 ZOSTER VACCINE 2001 PNEUMOCOCCAL VACCINE AGE 65+ (1 of 2 - 2006 PCV13) SEQUENTIAL INFLUENZA VACCINE (#1) 2016 Low-dose CT Lung Cancer Screen 10/16/2017 10/16/2016 COLONOSCOPY 07/27/2021 07/27/2016, 01/12/2010 as of this encounter Implants Implanted Type Area Rn Field Device Expiration Model / Identifier Date Serial / Lot Port Implanted Mri Isp W/8fr Cath Powerport - [id number] Catheter - Right: BARD PERIP 12/26/2017 [id number] / Implanted: Qty: 1 on 12/04/2016 by Kota Vences MD Implant Subclavian / [id number] as of this encounter Results CBC Auto Differential (12/07/2016 9:03 AM) Component Value Ref Range WBC 3.83 (L) 4.50 - 11.00 K/mcL RBC 3.94 (L) 4.50 - 5.90 M/mcL Hemoglobin 12.4 (L) 13.5 - 17.5 g/dL Hematocrit 36.1 (L) 41.0 - 53.0 % MCV 91.6 80.0 - 100.0 fL MCH 31.5 26.0 - 34.0 pg MCHC 34.3 31.0 - 37.0 g/dL Platelets 202 150 - 400 K/mcL RDW - CV 12.7 11.6 - 14.8 % MPV 9.1 9.0 - 15.5 fL Neutrophils 53.1 % Lymphocytes 37.3 % Monocytes 6.0 % Eosinophils 2.6 % Basophils 1.0 % Neutrophils Abs 2.03 1.70 - 7.00 K/mcL Lymphocytes Abs 1.43 0.90 - 4.00 K/mcL Monocytes Abs 0.23 (L) 0.30 - 0.90 K/mcL Eosinophils Abs 0.10 0.00 - 0.50 K/mcL Basophils Abs 0.04 0.00 - 0.30 K/mcL Nucleated RBC 0.0 % Nucleated RBC Abs 0.00 0.00 - 0.00 K/mcL Specimen Performing Laboratory Blood [facility] [address] [place] [address] Comprehensive Metabolic Panel (12/07/2016 9:03 AM) Component Value Ref Range Sodium 131 (L) 135 - 145 mmol/L Potassium 4.1 3.5 - 5.1 mmol/L Chloride 93 (L) 98 - 108 mmol/L Bicarbonate 25 21 - 32 mmol/L Anion Gap 17 10 - 20 mmol/L Glucose 203 (H) 65 - 99 mg/dL BUN 10 8 - 25 mg/dL Creatinine 0.64 (L) 0.80 - 1.30 mg/dL eGFR 96 >=60 mL/min/1.73 m2 BUN/Creatinine Ratio 15.6 10.0 - 20.0 Total Protein 6.3 6.0 - 8.0 g/dL Albumin 3.5 3.2 - 5.2 g/dL Calcium 8.7 8.4 - 10.2 mg/dL Alkaline Phosphatase 59 40 - 150 U/L AST 22 0 - 45 U/L ALT 29 0 - 40 U/L Total Bilirubin 0.3 0.0 - 1.3 mg/dL Specimen Performing Laboratory Blood [facility] [address] [place] [address] Narrative The eGFR should be used for monitoring renal function only and not for medication dosing. CBC and Differential (12/07/2016 9:03 AM) Specimen Performing Laboratory Blood Narrative The following orders were created for panel order CBC and Differential. Procedure? Abnormality? Status? ---------? ------? CBC Auto Differential[[id number]]?Abnormal?Final result? Please view results for these tests on the individual orders. in this encounter Visit Diagnoses Diagnosis Malignant neoplasm of head of pancreas (HCC) - Primary Malignant neoplasm of head of pancreas Encounter for antineoplastic chemotherapy in this encounter Administered Medications Inactive Administered Medications - up to 3 most recent administrations Medication Order MAR Action Action Date Dose Rate Site sodium chloride (PF) (NS) 0.9 % flush Given 12/07/2016 09:04 EDT 10 mL 10 mL 10 mL, Intravenous, Every 8 hours, First dose on Gemini 12/07/16 at 0945, For unused lumens while in infusion center. sodium chloride (PF) (NS) 0.9 % flush 20 mL Given 12/07/2016 09:03 EDT 20 mL 20 mL, Intravenous, As needed, line care, Starting Gemini 12/07/16 at 0853, For Central Lines. Flush after TPN, blood products, and blood draws. in this encounter Insurance Payer Benefit Plan / Group Subscriber ID Type Phone Address HUMANA [id number] MEDICARE HUMANA MCR GOLD PLUS HMO [id number] [facility]/JESSICA 80% [facility] [id number] [phone] [address] as of this encounter
--- OUTSIDE RECORDS SUMMARY | 2018-05-19 09:03 | XMS RPT_ITS | Summary of Care ---
:1940 Author Organization [facility] Address [address] [place] [address] Phone Care Team Providers Name Role Phone Jus Allison MD Primary Care Provider Sherif Valles MD Unavailable Varsha Pineda SPECIAL SERVICES DIRECTOR Unavailable Fran Burris MD Unavailable Reason for Visit Reason Comments Transition Of Care [facility]/ 12/18/2016 Encounter Details Date Type Department Care Team Description 12/19/2016 Patient Outreach [place] Fannie Grewal, Transition Of Care Physicians Primary RN ([facility]/ Care 12/18/2016) [address] [place] [address] Allergies Active Allergy Reactions Severity Noted Date Comments Ciprofloxacin 12/01/2014 Penicillin 12/01/2014 Tetracycline 12/01/2014 Ondansetron Hcl Hives 11/30/2016 Itching, hives, shortness of breath, sweating as of this encounter Medications Prescription Sig. Disp. Refills Start Date End Date Status aspirin 81 MG EC tablet Take 1 tablet Active by mouth daily . mometasone-formoterol Inhale 2 01/11/2012 Active (DULERA) 200-5 puffs 2 (two) mcg/actuation HFAA times a day. oxygen Inhale 2.5 Active L/min nightly. omeprazole (PRILOSEC) 40 Take 1 (one) 30 capsule 11 08/18/2016 08/18/2017 Active MG capsuleIndications: capsule (40 Generalized abdominal mg total) by pain mouth daily. doxycycline hyclate Take 1 (one) 16 tablet 0 12/12/2016 12/20/2016 Active (VIBRA-TABS) 100 MG tablet (100 tablet mg total) by mouth 2 (two) times a day for 8 days. methylPREDNISolone Reasons: PT 12/13/2016 Active (MEDROL DOSEPACK) 4 mg has at home, tabletIndications: PT has but not at home, but not taking taking at at this time this time. diphenhydrAMINE Take 25 mg by Active (BENADRYL) 25 mg capsule mouth every 6 (six) hours as needed for itching. furosemide (LASIX) 20 MG Take 1 (one) 60 tablet 0 12/18/2016 01/17/2017 Active tablet tablet (20 mg total) by mouth 2 (two) times a day. as of this encounter Active Problems Problem [...] Resolved Problems Problem Noted Date Resolved Date Cellulitis of right lower leg 12/15/2016 12/19/2016 Cellulitis 12/13/2016 12/19/2016 Pancreatic mass 10/11/2016 11/16/2016 as of this encounter Social History Tobacco Use Types Packs/Day Years Used Date Current Every Day Smoker 1 60 Smokeless Tobacco: Never Used Alcohol Use Drinks/Week oz/Week Comments Yes rarely 1-2 week Sex Assigned at Date Recorded Not on file as of this encounter Progress Notes Fannie Ybarra RN - 12/19/2016 9:16 AM EDTFormatting of this note may be different from the original. Spoke to Hannah Patient was discharged from [facility] Discharge diagnosis: Cellulitis of Right Lower Extremity Date of discharge: 12/15/16-12/18/16 Patient stated reason for hospitalization His lower leg got worse, they think it might be from the chemo States has been feeling Doing better, just itching all over Medications: Have you filled any new prescriptions? START taking these medications ?? Instructions ?? furosemide 20 MG tablet Commonly known as: LASIX ? Take 1 (one) tablet (20 mg total) by mouth 2 (two) times a day. ?? STOP taking these medications ?? alfuzosin 10 mg 24 hr tablet Commonly known as: UROXATRAL ? cephALEXin 500 MG capsule Commonly known as: KEFLEX ? TAKE these medications as instructed which may have CHANGED ?? Instructions ?? dexamethasone 4 MG tablet Commonly known as: DECADRON What changed: additional instructions ? Take 2 (two) tablets (8 mg total) by mouth 2 (two) times a day with meals START TAKING DAY AFTER CHEMO FOR 2 DAYS. ?? Are you taking your medications as directed on the hospital discharge? Medications reviewed, concerns addressed, is compliant with his medications. ADLs: ? Currently meeting ADL needs by No difficulty, performs independently ? Mobility walks ? Assistance needed with None ? Sleeping sleeping well ? Bowel/Bladder Normal consistency no problems with bladder ? Pain none Relates has discomfort due to constant itching, encouraged to discuss with oncologist. Verbalizes awareness of worsened/new symptoms such as CP/SOB, Fever/Chills, Increased redness/swelling/pain/drainage to lower extremity and actions including when to seek emergent care with EMS/ED Other tests/providers/clinics Dec 21, 2016 9:00 AM EDT Port Draw with [facility], CHAIR 1 [facility] Chemo Infusion Therapy ([facility]) ?? [address] [facility] [address] ? Dec 21, 2016 9:40 AM EDT Established/Office Visit with Sherif Valles MD [facility] Oncology Clinic ([facility]) ?? [address] [facility] [address] ? Please bring a photo ID, insurance card, all medication bottles, and method of payment for any co-pay and/or co-insurances. ? Dec 21, 2016 10:00 AM EDT Chemo with [facility], CHAIR 5 [facility] Chemo Infusion Therapy ([facility]) ?? [address] [facility] [address] ?? Advised to: ? Bring all medications with you to your appointment ? Bring meter if diabetic to appointment with you ? Appointment date/time: 12/19/2016 @ 10:45am in this encounter Plan of Treatment Upcoming Encounters Date Type Specialty Care Team Description 12/21/2016 Nurse Only Infusion Therapy Sherif Valles MD [address] [address] [phone] 12/21/2016 Office Visit Oncology Sherif Valles MD [address] [address] [phone] 12/21/2016 Infusion/Injection Infusion Therapy Sherif Valles MD [address] [place] [address] [phone] Health Maintenance Due Date Last Done Comments TETANUS EVERY 10 YR 1940 ZOSTER VACCINE 2001 PNEUMOCOCCAL VACCINE AGE 65+ (1 of 2 - 2006 PCV13) SEQUENTIAL INFLUENZA VACCINE (#1) 2016 Low-dose CT Lung Cancer Screen 10/16/2017 10/16/2016 COLONOSCOPY 07/27/2021 07/27/2016, 01/12/2010 as of this encounter Implants Implanted Type Area Principal Electrical Engineer Device Expiration Model / Identifier Date Serial / Lot Port Implanted Mri Isp W/8fr Cath Powerport - [id number] Catheter - Right: BARD PERIP 12/26/2017 [id number] / Implanted: Qty: 1 on 12/04/2016 by Kota Vences MD Implant Subclavian / [id number] as of this encounter Insurance Payer Benefit Plan / Group Subscriber ID Type Phone Address HUMANA MANAGED MEDICARE HUMANA MCR GOLD PLUS HMO [id number] HCAP/JESSICA 80% JESSICA [id number] as of this encounter
--- OUTSIDE RECORDS SUMMARY | 2018-05-19 09:03 | XMS RPT_ITS | Summary of Care ---
:1940 Author Organization [facility] Address [address] [id number] Care Team Providers Name Role Phone Jus Allison MD Primary Care Provider Sherif Valles MD Unavailable Varsha Pineda CNP Unavailable Fran Burris MD Unavailable Inder Guillen MD Unavailable Estefany Gaxiola RN Unavailable Unavailable Reason for Visit Reason Comments port flush Encounter Details Date Type Department Care Team Description 09/19/[address] [facility] Juancarlos Gabriel MD Encounter for antineoplastic chemotherapy (Primary Dx); Center Chemo 801 [facility] Malignant neoplasm of head of pancreas (HCC) Infusion Therapy [address] [place] [address] [place] [address] [phone] Allergies Active Allergy Reactions Severity Noted Date Comments Ciprofloxacin Hives 12/01/2014 Hives in the 80s Gemcitabine 02/09/2017 Penicillin Hives 12/01/2014 Hives in the 80s Tetracycline 12/01/2014 Ondansetron Hcl Hives 11/30/2016 Itching, hives, shortness of breath, sweating as of this encounter Medications Prescription Sig. Disp. Refills Start Date End Date Status mometasone-formotero Inhale 2 puffs 01/11/2012 Active l (DULERA) 200-5 2 (two) times a mcg/actuation HFAA day. oxygen Inhale 2.5 Active L/min nightly. loperamide (IMODIUM) Take 2 mg by 05/01/2017 Active 2 mg capsule mouth as needed for diarrhea. diphenhydrAMINE Take 25 mg by Active (BENADRYL) 25 mg mouth as needed capsule for itching. fluorouracil (5-FU) Infuse 2,205 1 each 0 06/11/2017 Active chemo home (two thousand infusionIndications: two hundred Malignant neoplasm five) mg into a of head of pancreas venous catheter (HCC) over 168 hr via ambulatory infusion pump.. aspirin 81 mg Chew and 1 tablet 0 06/18/2017 06/19/19 Active chewable Swallow 1 (one) 19 tabletIndications: tablet (81 mg Malignant neoplasm total) daily. of head of pancreas (HCC) omeprazole Take 1 (one) 30 capsule 11 09/17/2017 09/18/19 Active (PRILOSEC) 40 MG capsule (40 mg 19 capsule total) by mouth daily. pancrelipase, Take 1 (one) 90 capsule 11 03/02/2017 09/20/19 Discontinued Npi-Ndwv-Fbud, capsule (12,000 18 (CREON) units of lipase 12,000-38,000 total) by mouth -60,000 unit CpDR 3 (three) times capsule a day with meals. as of this [...] Vital Sign Reading Time Taken Blood Pressure 113/65 09/19/2017 1:44 PM EDT Pulse 72 09/19/2017 1:44 PM EDT Temperature 36.8 ??C (98.2 ??F) 09/19/2017 1:44 PM EDT Respiratory Rate 16 09/19/2017 1:44 PM EDT Oxygen Saturation - - Inhaled Oxygen Concentration - - Weight - - Height - - Body Mass Index - - in this encounter Progress Notes Leyda Saravia RN - 09/19/2017 1:50 PM EDTPatient t\stated moving [place] transferring care to [facility] this encounter Plan of Treatment Upcoming Encounters Date Type Specialty Care Team Description 11/15/2017 Radiation Oncology Radiation Oncology Cole Rivera MD [address] [place] [address] [phone] Health Maintenance Due Date Last Done Comments TETANUS EVERY 10 YR 1940 ZOSTER VACCINE 2001 PNEUMOCOCCAL VACCINE AGE 65+ (1 of 2006 2 - PCV13) SEQUENTIAL INFLUENZA VACCINE (#1) 2017 Low-dose CT Lung Cancer Screen 08/13/2018 08/13/2017, 04/24/2017, 02/22/2017, Additional history exists as of this encounter Implants Implanted Type Area Acid Cutter Device Expiration Model / Identifier Date Serial / Lot Port Implanted Mri Isp W/8fr Cath Powerport - [id number] Catheter - Right: BARD PERIP 12/26/2017 [id number] / Implanted: Qty: 1 on 12/04/2016 by Kota Vences MD Implant Subclavian / [id number] Cath 90cm Peritoneal Open End W/Wall Slits - [id number] Catheter - N/A: Abdomen MEDTRO SHAGGY [id number] / Implanted: Qty: 1 on 01/24/2017 by Inder Guillen MD Implant / Sealant 10ml Floseal Matrix Hemostatic W/Ndl-Free Adapter - [id number] N/A: Abdomen TOBAR BIO 03/20/2018 [id number] / Implanted: Qty: 2 on 01/24/2017 by Inder Guillen MD / [id number] as of this encounter Visit Diagnoses Diagnosis Encounter for antineoplastic chemotherapy - Primary Malignant neoplasm of head of pancreas (HCC) Malignant neoplasm of head of pancreas Administered Medications Inactive Administered Medications - up to 3 most recent administrations Medication Order MAR Action Action Date Dose Rate Site heparin, porcine (PF) injection Given 09/19/2017 13:47 EDT 500 Units 500 Units 500 Units, Intravenous, As needed, For port needle removal and monthly., Starting 09/19/17 at 1337, For ports, flush with 10 mL 0.9% NaCl IV and 5 mL Heparin (100 units/mL) prior to needle removal and every month when not in use. sodium chloride (PF) (NS) flush 20 mL Given 09/19/2017 13:46 EDT 20 mL 20 mL, Intravenous, As needed, line care, Starting 09/19/17 at 1337, For Central Lines. Flush after TPN, blood products, and blood draws. in this encounter
--- OUTSIDE RECORDS SUMMARY | 2018-05-19 09:03 | XMS RPT_ITS | Summary of Care ---
:1940 Author Organization [facility] Address [address] [place] [address] Phone Care Team Providers Name Role Phone Jus Allison MD Primary Care Provider Sherif Valles MD Unavailable Varsha Pineda CNP Unavailable Fran Burris MD Unavailable Inder Guillen MD Unavailable Virginia Lawrence RN Patient Navigator Unavailable Carlos Gao RN [place] Tra[facility] Doctor Unavailable Reason for Visit Reason Comments Post-op Encounter Details Date Type Department Care Team Description 02/13/2017 Follow-Up [facility] Cancer & Inder Guillen MD Malignant neoplasm of [facility] [address] head of pancreas (HCC) [address] [facility] [address] (Primary Dx) [address] [place] [address] [place] [address] Allergies Active Allergy Reactions Severity Noted Date [...] Vital Sign Reading Time Taken Blood Pressure 136/72 02/13/2017 2:27 PM EST Pulse 68 02/13/2017 2:27 PM EST Temperature - - Respiratory Rate 20 02/13/2017 2:27 PM EST Oxygen Saturation - - Inhaled Oxygen Concentration - - Weight 73.4 kg (161 lb 12.8 oz) 02/13/2017 2:27 PM EST Height - - Body Mass Index 24.6 02/13/2017 2:27 PM EST in this encounter Progress Notes Inder Guillen MD - 02/13/2017 2:50 PM ESTPost op follow up S/p Whipple, margins negative, 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 Tolerating diet, having bowel function. Follow up with Dr Valles RTC PRN in this encounter Plan of Treatment Upcoming Encounters Date Type Specialty Care Team Description 02/15/2017 Office Visit Oncology Sherif Valles MD [address] [facility] [address] [place] [address] [phone] 03/06/2017 Follow-Up Surgical Oncology Inder Guillen MD [address] [facility] [address] [place] [address] [phone] 05/11/2017 Office Visit Primary Care Jus Allison MD [address] [place] [address] [phone] Health Maintenance Due Date Last Done Comments TETANUS EVERY 10 YR 1940 ZOSTER VACCINE 2001 PNEUMOCOCCAL VACCINE AGE 65+ (1 of 2 - 2006 PCV13) SEQUENTIAL INFLUENZA VACCINE (#1) 2016 Low-dose CT Lung Cancer Screen 01/03/2018 01/03/2017, 10/16/2016 COLONOSCOPY 07/27/2021 07/27/2016, 01/12/2010 as of this encounter Implants Implanted Type Area Senior Net Web Developer Device Expiration Model / Identifier Date Serial / Lot Port Implanted Mri Isp W/8fr Cath Powerport - [id number] Catheter - Right: BARD PERIP 12/26/2017 [id number] / Implanted: Qty: 1 on 12/04/2016 by Kota Vences MD Implant Subclavian / [id number] Cath 90cm Peritoneal Open End W/Wall Slits - [id number] Catheter - N/A: Abdomen MEDTRO SHAGGY [id number] / Implanted: Qty: 1 on 01/24/2017 by Inder Guillen MD Implant / Sealant 10ml Floseal Matrix Hemostatic W/Ndl-Free Adapter - [id number] N/A: Abdomen TOBAR BIO 03/20/2018 [id number] / Implanted: Qty: 2 on 01/24/2017 by Inder Guillen MD / [id number] as of this encounter Visit Diagnoses Diagnosis Malignant neoplasm of head of pancreas (HCC) - Primary Malignant neoplasm of head of pancreas Insurance Payer Benefit Plan / Group Subscriber ID Type Phone Address [employer] MANAGED MEDICARE HUMANA MCR GOLD PLUS HMO [id number] [facility]/JESSICA 80% JESSICA [id number] [phone] [place] [address] as of this encounter
--- OUTSIDE RECORDS SUMMARY | 2018-05-19 09:04 | XMS RPT_ITS | Summary of Care ---
:1940 Author Organization [facility] Address [address] [place] [id number] Care Team Providers Name Role Phone Jus Allison MD Primary Care Provider Sherif Valles MD Unavailable Varsha Pineda CNP Unavailable Fran Burris MD Unavailable Inder Guillen MD Unavailable Estefany Gaxiola RN Unavailable Unavailable Reason for Referral MRI/CAT/PET Scan (Routine) Status Reason Specialty Diagnoses / Referred By Contact Referred To Contact Procedures Closed Radiology Diagnoses Malignant neoplasm of head of pancreas (HCC) Cole Rivera Procedures CT Radiation Therapy Mapping (No PACs Images) MD Rodolfo [address] [place] [address] MRI/CAT/PET Scan (Routine) Status Reason Specialty Diagnoses / Referred By Contact Referred To Contact Procedures Closed Radiology Diagnoses Malignant neoplasm of head of pancreas (HCC) Cole Rivera Procedures CT Radiation Therapy Mapping (No PACs Images) MD Rodolfo [address] [address] Reason for Visit MRI/CAT/PET Scan (Routine) Status Reason Specialty Diagnoses / Referred By Contact Referred To Contact Procedures Closed Radiology Diagnoses Malignant neoplasm of head of pancreas (HCC) Cole Rivera Procedures CT Radiation Therapy Mapping (No PACs Images) MD Rodolfo [address] [place] [address] Encounter Details Date Type Department Care Team Description 06/04/2017 Hospital Encounter [facility] Cole Rivera Malignant neoplasm Center CT Scan MD Rodolfo of head of pancreas [address] [facility] [address] [facility] ([facility] [place]) [place] [address] [facility] [phone] [address] [place] [address] [phone] Allergies Active Allergy Reactions Severity Noted Date [...] (one) 90 capsule 11 03/02/2017 03/02/2018 Active Ysh-Vctm-Juun, (CREON) capsule (12,000 12,000-38,000 -60,000 units of lipase unit CpDR capsule total) by mouth 3 (three) times a day with meals. loperamide (IMODIUM) 2 Take 2 mg by 05/01/2017 Active mg capsule mouth as needed for diarrhea. sodium chloride, PF, Infuse 10 mL 05/01/2017 Active (NORMAL SALINE FLUSH) into a venous injection catheter as needed (Infusaport flush before and after chemo administration). heparin Infuse 5 mL into 05/01/2017 Active flush,porcine,-0.9NaCl a venous 100 unit/mL Kit catheter as needed (Ifusaport flush post chemo administration). fluorouracil (5-FU) Infuse 2,804 1 each 0 05/07/2017 Active chemo home (two thousand infusionIndications: eight hundred Malignant neoplasm of four) mg into a head of pancreas (HCC) venous catheter over 168 hr via ambulatory infusion pump.. diphenhydrAMINE Take 25 mg by Active (BENADRYL) 25 mg mouth as needed capsule for itching. as of this encounter Active Problems Problem [...] Encounters Date Type Specialty Care Team Description 06/05/2017 Office Visit Home Health Services Betty Gates RN 06/11/2017 Nurse Only Infusion Therapy Sherif Valles MD [address] [address] [phone] 06/11/2017 Office Visit Oncology Sherif Valles MD 801 [facility] [address] [place] [address] [phone] 06/12/2017 Office Visit Home Health Services Betty Gates RN 06/12/2017 Radiation Oncology Radiation Oncology 06/13/2017 Radiation Oncology Radiation Oncology 06/14/2017 Radiation Oncology Radiation Oncology 06/15/2017 Radiation Oncology Radiation Oncology 06/18/2017 Radiation Oncology Radiation Oncology 06/19/2017 Office Visit Home Health Services Betty Gates RN 06/19/2017 Radiation Oncology Radiation Oncology 06/20/2017 Radiation Oncology Radiation Oncology 06/21/2017 Radiation Oncology Radiation Oncology 06/22/2017 Radiation Oncology Radiation Oncology 06/25/2017 Radiation Oncology Radiation Oncology 06/26/2017 Office Visit Home Health Services Betty Gates RN 06/26/2017 Radiation Oncology Radiation Oncology 06/27/2017 Radiation Oncology Radiation Oncology 06/28/2017 Radiation Oncology Radiation Oncology 06/29/2017 Radiation Oncology Radiation Oncology 07/02/2017 Radiation Oncology Radiation Oncology 07/02/2017 Radiation Oncology Radiation Oncology 07/03/2017 Radiation Oncology Radiation Oncology 07/04/2017 Radiation Oncology Radiation Oncology 07/05/2017 Radiation Oncology Radiation Oncology 07/06/2017 Radiation Oncology Radiation Oncology 07/09/2017 Radiation Oncology Radiation Oncology 07/10/2017 Radiation Oncology Radiation Oncology 07/11/2017 Radiation Oncology Radiation Oncology 07/12/2017 Radiation Oncology Radiation Oncology 07/13/2017 Radiation Oncology Radiation Oncology 07/16/2017 Radiation Oncology Radiation Oncology 07/17/2017 Radiation Oncology Radiation Oncology 07/18/2017 Radiation Oncology Radiation Oncology 07/19/2017 Radiation Oncology Radiation Oncology 08/01/2017 Radiation Oncology Radiation Oncology Health Maintenance Due Date Last Done Comments TETANUS EVERY 10 YR 1940 ZOSTER VACCINE 2001 PNEUMOCOCCAL VACCINE AGE 65+ (1 of 2006 2 - PCV13) SEQUENTIAL INFLUENZA VACCINE (#1) 2016 Low-dose CT Lung Cancer Screen 04/24/2018 04/24/2017, 02/22/2017, 01/03/2017, Additional history exists COLONOSCOPY 07/27/2021 07/27/2016, 01/12/2010 as of this encounter Implants Implanted Type Area Housekeeping Attendant Device Expiration Model / Identifier Date Serial / Lot Port Implanted Mri Isp W/8fr Cath Powerport - [id number] Catheter - Right: BARD PERIP 12/26/2017 [id number] / Implanted: Qty: 1 on 12/04/2016 by Kota Vences MD Implant Subclavian / [id number] Cath 90cm Peritoneal Open End W/Wall Slits - [id number] Catheter - N/A: Abdomen MEDTRO SHAGGY [id number] / Implanted: Qty: 1 on 01/24/2017 by Inder Guillen MD Implant / Sealant 10ml Floseal Matrix Hemostatic W/Ndl-Free Adapter - [id number] N/A: Abdomen TOBAR BIO 03/20/2018 [id number] / Implanted: Qty: 2 on 01/24/2017 by Inder Guillen MD / [id number] as of this encounter Results CT Radiation Therapy Mapping (No PACs Images) (06/04/2017 3:10 PM) Specimen Performing Laboratory [employer] [facility] Narrative This is an auto finalized result. Please refer to patient chart for further information. in this encounter Visit Diagnoses Diagnosis Malignant neoplasm of head of pancreas (HCC) Malignant neoplasm of head of pancreas Administered Medications Inactive Administered Medications - up to 3 most recent administrations Medication Order MAR Action Action Date Dose Rate Site iopamidol (ISOVUE-370) 76 % Contrast Administered 06/04/2017 14:58 EDT 75 mL injection 75 mL 75 mL, Intravenous, Once in imaging, contrast, Starting 06/04/17 at 1401, For 1 dose iopamidol (ISOVUE-370) 76 % oral Contrast Administered 06/04/2017 14:44 EDT 18 mL solution 18 mL 18 mL, Oral, Once in imaging, contrast, Starting 06/04/17 at 1401, For 1 dose in this encounter Insurance Payer Benefit Plan / Group Subscriber ID Type Phone Address HUMANA MANAGED MEDICARE HUMANA MCR GOLD PLUS O xxxxxxxxx HCAP/JESSICA 80% JESSICA xxxxxxxxx [phone] [place] [address] as of this encounter
--- OUTSIDE RECORDS SUMMARY | 2018-05-19 09:04 | XMS RPT_ITS | Summary of Care ---
:1940 Author Organization [facility] Address [address] [id number] Care Team Providers Name Role Phone Jus Allison MD Primary Care Provider Sherif Valles MD Unavailable Varsha Pineda CNP Unavailable Fran Burris MD Unavailable Inder Guillen MD Unavailable Estefany Gaxiola RN Unavailable Unavailable Encounter Details Date Type Department Care Team Description 04/24/[address] [facility] Sherif Valles MD Encounter for antineoplastic chemotherapy (Primary Dx); Center Chemo [address] [facility] Malignant neoplasm of head of pancreas (HCC) Infusion Therapy [address] [place] [address] [place] [address] [phone] Allergies Active Allergy Reactions Severity Noted Date [...] (one) 90 capsule 11 03/02/2017 03/02/2018 Active Uze-Cogp-Uoeu, capsule (12,000 (CREON) 12,000-38,000 units of lipase [...] Vital Sign Reading Time Taken Blood Pressure 151/74 04/24/2017 9:00 AM EST Pulse - - Temperature 36.8 ??C (98.3 ??F) 04/24/2017 9:00 AM EST Respiratory Rate 18 04/24/2017 9:00 AM EST Oxygen Saturation - - Inhaled Oxygen Concentration - - Weight - - Height - - Body Mass Index - - in this encounter Plan of Treatment Upcoming Encounters Date Type Specialty Care Team Description 04/25/2017 Radiation Oncology Radiation Oncology Cole Rivera MD [address] [address] [phone] 04/26/2017 Office Visit Oncology Sherif Valles MD [address] [phone] 05/11/2017 Office Visit Primary Care Jus Allison MD [address] [place] [address] Health Maintenance Due Date Last Done Comments TETANUS EVERY 10 YR 1940 ZOSTER VACCINE 2001 PNEUMOCOCCAL VACCINE AGE 65+ (1 of 2 2006 - PCV13) SEQUENTIAL INFLUENZA VACCINE (#1) 2016 Low-dose CT Lung Cancer Screen 02/22/2018 02/22/2017, 01/03/2017, 10/16/2016 COLONOSCOPY 07/27/2021 07/27/2016, 01/12/2010 as of this encounter Implants Implanted Type Area Manager Metrology Device Expiration Model / Identifier Date Serial / Lot Port Implanted Mri Isp W/8fr Cath Powerport - [id number] Catheter - Right: BARD PERIP 12/26/2017 [id number] / Implanted: Qty: 1 on 12/04/2016 by Kota Vences MD Implant Subclavian / [id number] Cath 90cm Peritoneal Open End W/Wall Slits - [id number] Catheter - N/A: Abdomen MEDTRO SHAGGY [id number] / Implanted: Qty: 1 on 01/24/2017 by Inder Guillen MD Implant / Sealant 10ml Floseal Matrix Hemostatic W/Ndl-Free Adapter - [id number] N/A: Abdomen TOBAR BIO 03/20/2018 [id number] / Implanted: Qty: 2 on 01/24/2017 by Inder Guillen MD / [id number] as of this encounter Visit Diagnoses Diagnosis Encounter for antineoplastic chemotherapy - Primary Malignant neoplasm of head of pancreas (HCC) Malignant neoplasm of head of pancreas Administered Medications Inactive Administered Medications - up to 3 most recent administrations Medication Order MAR Action Action Date Dose Rate Site heparin, porcine (PF) injection Given 04/24/2017 11:42 EST 500 Units 500 Units 500 Units, Intravenous, As needed, For port needle removal and monthly., Starting 04/24/17 at 0858, For ports, flush with 10 mL 0.9% NaCl IV and 5 mL Heparin (100 units/mL) prior to needle removal and every month when not in use. sodium chloride (PF) (NS) flush 20 mL Given 04/24/2017 09:02 EST 20 mL 20 mL, Intravenous, As needed, line care, Starting 04/24/17 at 0858, For Central Lines. Flush after TPN, blood products, and blood draws. Given 04/24/2017 11:41 EST 20 mL in this encounter Insurance Payer Benefit Plan / Group Subscriber ID Type Phone Address HUMANA MANAGED MEDICARE HU[employer]NA MCR GOLD PLUS O xxxxxxxxx HCAP/JESSICA 80% JESSICA xxxxxxxxx Home: spring [employer] [phone] [address] as of this encounter
--- OUTSIDE RECORDS SUMMARY | 2018-05-19 09:04 | XMS RPT_ITS | Summary of Care ---
:1940 Author Organization [facility] Address [address] [place] [address] Care Team Providers Name Role Phone Jus Allison MD Primary Care Provider Sherif Valles MD Unavailable Varsha Pineda CNP Unavailable Fran Burris MD Unavailable Inder Guillen MD Unavailable Estefany Gaxiola RN Unavailable Unavailable Reason for Visit Reason Comments Pancreatic Cancer Encounter Details Date Type Department Care Team Description 04/26/2017 Office Visit [facility] Sherif Valles MD Malignant neoplasm of head of pancreas (HCC) (Primary Dx); Center Oncology [address] [facility] Encounter for antineoplastic chemotherapy; [facility] [address] Chemotherapy follow-up examination [address] [place] [address] [place], [place] [id number] Allergies Active Allergy Reactions Severity Noted Date Comments Ciprofloxacin Hives 12/01/2014 Hives in the 80s Gemcitabine 02/09/2017 Penicillin Hives 12/01/2014 Hives in the 80s Tetracycline 12/01/2014 Ondansetron Hcl Hives 11/30/2016 Itching, hives, shortness of breath, sweating as of this encounter Medications Prescription Sig. Disp. Refills Start Date End Date Status mometasone-formotero Inhale 2 puffs 2 01/11/2012 Active l (DULERA) 200-5 (two) times a mcg/actuation HFAA day. oxygen Inhale 2.5 L/min Active nightly. omeprazole Take 1 (one) 30 capsule 11 08/18/2016 08/18/2017 Active (PRILOSEC) 40 MG capsule (40 mg capsuleIndications: total) by mouth Generalized daily. abdominal pain pancrelipase, Take 1 (one) 90 capsule 11 03/02/2017 03/02/2018 Active Gex-Rjse-Gefy, capsule (12,000 (CREON) units of lipase 12,000-38,000 total) by mouth 3 -60,000 unit CpDR (three) times a capsule day with meals. fluorouracil (5-FU) Infuse 2,804 (two 1 each 0 04/26/2017 Active chemo home thousand eight infusionIndications: hundred four) mg Malignant neoplasm into a venous of head of pancreas catheter over 168 (HCC) hr via ambulatory infusion pump.. as of this encounter Active Problems Problem [...] Vital Sign Reading Time Taken Blood Pressure 158/95 04/26/2017 10:20 AM EST Pulse 70 04/26/2017 10:20 AM EST Temperature 36.7 ??C (98.1 ??F) 04/26/2017 10:20 AM EST Respiratory Rate - - Oxygen Saturation - - Inhaled Oxygen Concentration - - Weight 64.4 kg (142 lb) 04/26/2017 10:20 AM EST Height - - Body Mass Index 21.59 04/26/2017 10:20 AM EST in this encounter Progress Notes Gisela Ortiz, PAT - 04/26/2017 10:58 AM ESTMed sheet on 5FU given and teaching on this medicine completed with pt and his spouse. Also reviewed compazine and imodium use and when to call us. Chemo consent for 5FU signed and faxed to medical records. S/w Tania at homecare and she is to call us back regarding cost of home 5FU. I will then call pt and notify him and confirm plan to start 5FU on Sunday.Sherif Valles MD - 04/26/2017 10:53 AM ESTFormatting of this note may be different from the original. [facility] [address] [place] [id number] Hematology and Oncology Progress Note Patient Name: Elbert Canales MR #: [id number] : @ [facility] #: [id number] Date of Service: 04/26/17 Clinician: Sherif Valles MD Diagnosis: Pancreatic cancer, stage IB (T2N0M0), head and uncinate process, 2.1 cm, Dx-10/31/2016. Treatment: He is status post neoadjuvant chemotherapy with gemcitabine plus Abraxane from 11/16/2016 to 12/07/2016, 1 cycle. Status post Whipple procedure by Dr. Guillen on 01/24/2017. Chief Complaint: Follow up, pancreatic cancer History of Presenting Illness: Mr Elbert Canales [...] Colonic diverticulosis without evidence of diverticulitis. 7. Djxa-gs-wpjwjyix constipation. 8. Moderate prostatomegaly. MRI Abdomen on [...] on 10/31/2016, by Dr. Partha Muñoz at [place] which showed a mass in thepancreatic head [...] malignant cells consistent with adenocarcinoma. Labs on 11/29 showed normal CBC and CMP profile, CA 19-9 at 345. He was admitted at [place] on 12/09/2016, with 1 day of increased [...] discharged yesterday. He was again discharged from [place] on 12/18/2016. He was admitted on 12/15 [...] future. Stable appearance of left thyroid nodule. Labs on 04/18/2017 showed increasing CA 19-9 at 151 from 101 four weeks ago, CMP panel unremarkable,CBC also unremarkable with improving hemoglobin at 13.3. CT chest, abdomen, pelvis with contrast 04/24/2017 showed no definitive evidence of recurrent or residual neoplasm. He is status post Whipple. Advanced emphysema was noted. He is here for followup evaluation. He has not started the infusional 5-FU treatment yet. He is doing very well. Continues to smoke, and states that he is enjoying his smoking and he does not want to quit now. He denies any abdominal pain, nausea, vomiting, diarrhea, or constipation. Assessment/Plan: Pancreatic cancer (adenocarcinoma), involving pancreatic head [...] then he underwent Whipple procedure by Dr. Guillen on 01/24/2017. He was found to have a stage IIB (T3 N1 M0) disease with positive margin at radial/circumferential margin around the portal vein area. He has some high-risk features including perineal invasion and tumor extension at extrapancreatic soft tissue. 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 Diarrhea controlled withCreon. Now CA-19-9 level is rising and fortunately CT scan did not show any evidence of recurrence or residual malignancy. I reviewed the labs and the CT finding with him and his . He is all set to start the infusional5-FU treatment pending home health care logistics. Currently, he is on HCAP through [facility], andour office is trying to assist him to get everything set up. We will plan to see him back in about 3 weeks. I have advised him that on treatment, if he has any questions, concern, complications, or side effects, he will contact our office for an earlier appointment. I have also advised him to continue lasix prn for edema. Advised him to elevate his legs also. Regimen planned as per RTOG trial 97-04, data published in [facility] on May 01, 2007. According to this, chemotherapy prior to chemoradiation with continuous 5-FU 250 mg per sq m per day for 3 weeks then between 1-2 weeks after completion of chemotherapy, chemoradiation was initiated with 50.4 Gy of radiation with continuous infusion of 250 mg per sq m 5-FU daily throughout the radiation therapy, and another phase of chemotherapy was initiated 3-5 weeks after completion of chemoradiation therapy for 3 months. He voiced understanding with the above discussion. Review of Systems: 12 point review of [...] hernia+ Extremity: no clubbing, no cyanosis. RLE edema+ Skin: RLE erythema Neuro: alert, oriented, no focal deficits, speech normal. Psych: Pt has a normal mood and affect. Vital Signs: BP (!) 158/95 (BP Location: Right arm) Pulse 70 Temp 98.1 ??F (36.7 ??C) (Temporal) Wt 64.4kg (142 lb) BMI 21.59 kg/m?? Last Height and Weight with BMI: 64.4 kg (142 lb) Body mass index is 21.59 kg/m??. PMH/PSH/FH/SH: Past Medical History: Diagnosis Date ??? Arthritis ??? BPH (benign prostatic hyperplasia) ??? Cancer (HCC) skin cancer ??? Cataract ??? Chemotherapy adverse reaction 12/01/2016 has had 2 treatments-- getting port now. Had adverse reaction to zofran after first treatment ??? Chronic diarrhea current problem (07/21/16), stool specimen positive for blood ([facility]) per pt ??? Colon polyps 2010 benign ??? Complication of anesthesia difficulty waking up ??? COPD (chronic obstructive pulmonary disease) (HCC) ??? GERD (gastroesophageal reflux disease) ??? History of stress test ??? Pancreatic cancer (HCC) 11/12 ??? Pancreatic mass Past Surgical History: Procedure Laterality Date ??? APPENDECTOMY ??? COLONOSCOPY 2009 benign polyps found ??? COLONOSCOPY N/A 07/27/2016 Procedure: COLONOSCOPY; Surgeon: Kota Vences MD; Location: [facility] Endo; Service: ??? INSERTION SUBCUTANEOUS PORT N/A 12/04/2016 Procedure: PORT PLACEMENT ; Surgeon: Kota Vences MD; Location: [facility] Main OR; Service: ??? PROSTATE BIOPSY ??? SINUS SURGERY 2003 ??? WHIPPLE PROCEDURE N/A 01/24/2017 Procedure: WHIPPLE PROCEDURE; Surgeon: Inder Guillen MD; Location: [facility] Main OR; Service: Family History Problem Relation [...] (two) times a day. 01/11/12 Historical Provider, OCEAN NASAL 0.65 % nasal spray Instill 2 sprays into each nostril as needed . 09/25/15 Historical Provider, omeprazole (PRILOSEC) 40 MG capsule Take 1 (one) capsule (40 mg total) by mouth daily. 08/18/16 08/18/17 Jus Allison MD oxygen Inhale 2.5 L/min nightly. Historical Provider, pancrelipase, Xgi-Kkfz-Axxr, (CREON) 12,000-38,000 -60,000 unit CpDR capsule Take 1 (one) capsule (12,000 units of lipase total) by mouth 3 (three) times a day with meals. 08/07/16 08/07/17 Jus Allison MD LABS: Pertinent latest labs reviewed in EMR and discussed with patient. WBC Date Value Ref Range Status 04/18/2017 5.52 4.50 - 11.00 K/mcL Final 07/07/2014 5.35 4.50 - 11.00 K/MCL RBC Date Value Ref Range Status 04/18/2017 4.42 (L) 4.50 - 5.90 M/mcL Final 07/07/2014 4.73 4.50 - 5.90 M/MCL Hemoglobin Date Value Ref Range Status 04/18/2017 13.3 (L) 13.5 - 17.5 g/dL Final 07/07/2014 15.3 13.5 - 17.5 G/DL Hematocrit Date Value Ref Range Status 04/18/2017 39.8 (L) 41.0 - 53.0 % Final 07/07/2014 45.2 41.0 - 53.0 % MCV Date Value Ref Range Status 04/18/2017 90.0 80.0 - 100.0 fL Final 07/07/2014 95.6 80.0 - 100.0 FL MCH Date Value Ref Range Status 04/18/2017 30.1 26.0 - 34.0 pg Final 07/07/2014 32.3 26.0 - 34.0 PG MCHC Date Value Ref Range Status 04/18/2017 33.4 31.0 - 37.0 g/dL Final Platelets Date Value Ref Range Status 04/18/2017 201 150 - 400 K/mcL Final RDW Date Value Ref Range Status 07/07/2014 12.5 11.6 - 14.8 % RDW - CV Date Value Ref Range Status 04/18/2017 13.8 11.6 - 14.8 % Final Sodium Date Value Ref Range Status 04/18/2017 136 135 - 145 mmol/L Final 07/07/2014 136 135 - 145 MMOL/L Potassium Date Value Ref Range Status 04/18/2017 4.1 3.5 - 5.1 mmol/L Final 07/07/2014 4.4 3.5 - 5.1 MMOL/L Chloride Date Value Ref Range Status 04/18/2017 98 98 - 108 mmol/L Final 07/07/2014 98 98 - 108 MMOL/L Bicarbonate Date Value Ref Range Status 04/18/2017 27 21 - 32 mmol/L Final 07/07/2014 28 21 - 32 MMOL/L Anion Gap Date Value Ref Range Status 04/18/2017 15 10 - 20 mmol/L Final Glucose Date Value Ref Range Status 04/18/2017 162 (H) 65 - 99 mg/dL Final 07/07/2014 94 65 - 99 MG/DL BUN Date Value Ref Range Status 04/18/2017 8 8 - 25 mg/dL Final 07/07/2014 12 8 - 25 MG/DL Creatinine Date Value Ref Range Status 04/18/2017 0.66 (L) 0.80 - 1.30 mg/dL Final 10/05/2016 0.7 (L) 0.8 - 1.3 mg/dL Final Serum Creatinine Date Value Ref Range Status 01/11/2012 0.9 0.8 - 1.3 MG/DL eGFR Date Value Ref Range Status 04/18/2017 95 >=60 mL/min/1.73 m2 Final GFR, Non Date Value Ref Range Status 01/11/2012 >60 >60 Comment: Test Units:mL/min/1.73m2 This Calculation is for Non Patients BUN/Creatinine Ratio Date Value Ref Range Status 04/18/2017 12.1 10.0 - 20.0 Final BUN/Creat Ratio Date Value Ref Range Status 07/07/2014 15.0 10.0 - 20.0 Comment: The above 18 analytes were performed by [address] [address] Ordered on: 07/07/2014, EMMA ALLISON Tests Performed at: [facility] (Unless Otherwise Specified) [address] [place] [address], [id number] - [facility] #[id number] [facility] - Order ID:[id number] Sample ID:[id number] Total Protein Date Value Ref Range Status 04/18/2017 6.4 6.0 - 8.0 g/dL Final Albumin Date Value Ref Range Status 04/18/2017 3.6 3.2 - 5.2 g/dL Final Calcium Date Value Ref Range Status 04/18/2017 8.7 8.4 - 10.2 mg/dL Final 07/07/2014 10.0 8.4 - 10.2 MG/DL Alkaline Phosphatase Date Value Ref Range Status 04/18/2017 83 40 - 150 U/L Final AST Date Value Ref Range Status 04/18/2017 16 0 - 45 U/L Final ALT Date Value Ref Range Status 04/18/2017 10 0 - 40 U/L Final Total Bilirubin Date Value Ref Range Status 04/18/2017 0.3 0.0 - 1.3 mg/dL Final Diagnostic Tests: Pertinent available radiologic studies were reviewed. Follow Up: Return in about 3 weeks (around 05/17/2017) for Office Visit, Labs - See Treatment Plan. No orders of the defined types were placed in this encounter. ? Sherif Valles MD [facility] [address] [facility], [address] [place] [address] [phone] [phone] CC: MD Inder Fink MD Andrew Freeman, MD in this encounter Miscellaneous Notes Addendum Note - Gisela Ortiz RN - 04/26/2017 10:20 AM EST Addended by: GISELA ORTIZ on: 04/26/2017 02:40 PM Modules accepted: Orders in this encounter Plan of Treatment Upcoming Encounters Date Type Specialty Care Team Description 05/11/2017 Office Visit Primary Care Jus Allison MD [address] [place] [address] 05/22/2017 Office Visit Oncology Sherif Valles MD [address] [address] Scheduled Tests Name Priority Associated Diagnoses Order Schedule CBC and Differential Routine Malignant neoplasm of See Treatment Plan for 6 head of pancreas (HCC) Occurrences starting 04/26/2017 until 04/26/2018 Comprehensive Metabolic Routine Malignant neoplasm of See Treatment Plan for 6 Panel head of pancreas (HCC) Occurrences starting 04/26/2017 until 04/26/2018 Health Maintenance Due Date Last Done Comments TETANUS EVERY 10 YR 1940 ZOSTER VACCINE 2001 PNEUMOCOCCAL VACCINE AGE 65+ (1 of 2006 2 - PCV13) SEQUENTIAL INFLUENZA VACCINE (#1) 2016 Low-dose CT Lung Cancer Screen 04/24/2018 04/24/2017, 02/22/2017, 01/03/2017, Additional history exists COLONOSCOPY 07/27/2021 07/27/2016, 01/12/2010 as of this encounter Implants Implanted Type Area Events Manager Device Expiration Model / Identifier Date Serial / Lot Port Implanted Mri Isp W/8fr Cath Powerport - [id number] Catheter - Right: BARD PERIP 12/26/2017 [id number] / Implanted: Qty: 1 on 12/04/2016 by Kota Vences MD Implant Subclavian / [id number] Cath 90cm Peritoneal Open End W/Wall Slits - [id number] Catheter - N/A: Abdomen MEDTRO SHAGGY [id number] / Implanted: Qty: 1 on 01/24/2017 by Inder Guillen MD Implant / Sealant 10ml Floseal Matrix Hemostatic W/Ndl-Free Adapter - [id number] N/A: Abdomen TOBAR BIO 03/20/2018 [id number] / Implanted: Qty: 2 on 01/24/2017 by Inder Guillen MD / [id number] as of this encounter Visit Diagnoses Diagnosis Malignant neoplasm of head of pancreas (HCC) - Primary Malignant neoplasm of head of pancreas Encounter for antineoplastic chemotherapy Chemotherapy follow-up examination Insurance Payer Benefit Plan / Group Subscriber ID Type Phone Address [employer] MANAGED MEDICARE [facility] xxxxxxxxx HCAP/JESSICA 80% JESSICA xxxxxxxxx as of this encounter
--- OUTSIDE RECORDS SUMMARY | 2018-05-19 09:04 | XMS RPT_ITS | Summary of Care ---
:1940 Author Organization [facility] Address [address] [place] [address] Care Team Providers Name Role Phone Jus Allison MD Primary Care Provider Sherif Valles MD Unavailable Varsha Pineda CNP Unavailable Fran Burris MD Unavailable Inder Guillen MD Unavailable Estefany Gaxiola RN Unavailable Unavailable Reason for Referral Home Health (Emergency) Status Reason Specialty Diagnoses / Referred By Referred To Procedures Contact Contact Pending Home Health Diagnoses Chemotherapy follow-up examination Encounter for antineoplastic chemotherapy Malignant neoplasm of head of pancreas (HCC) Sherif Valles MD Review Services [address] [facility] [address] [place] [address] MRI/CAT/PET Scan (Routine) Status Reason Specialty Diagnoses / Referred By Referred To Procedures Contact Contact Pending Review Radiology Diagnoses Chemotherapy follow-up examination Malignant neoplasm of head of pancreas (HCC) Sherif Valles MD Procedures CT Chest Abdomen Pelvis With Contrast [address] [facility] [address] [place] [address] Reason for Visit Reason Comments Pancreatic Cancer Encounter Details Date Type Department Care Team Description 04/19/2017 Office Visit [facility] Sherif Valles MD Chemotherapy follow-up examination (Primary Dx); Center Oncology [address] [facility] Encounter for antineoplastic chemotherapy; Clinic [address] Malignant neoplasm of head of pancreas (HCC) [address] [place] [address] [place] [address] [phone] Allergies Active Allergy Reactions Severity Noted Date [...] (one) 90 capsule 11 03/02/2017 03/02/2018 Active Ccr-Jivf-Fhbx, capsule (12,000 (CREON) 12,000-38,000 units of lipase [...] Vital Sign Reading Time Taken Blood Pressure 174/80 04/19/2017 11:04 AM EST Pulse 82 04/19/2017 11:04 AM EST Temperature 37.1 ??C (98.7 ??F) 04/19/2017 11:04 AM EST Respiratory Rate - - Oxygen Saturation - - Inhaled Oxygen Concentration - - Weight 65.2 kg (143 lb 12.8 oz) 04/19/2017 11:04 AM EST Height - - Body Mass Index 21.86 04/19/2017 11:04 AM EST in this encounter Progress Notes Maida Smith, RN - 04/19/2017 1:16 PM ESTDr. Valles has ordered a CT scan for this Pt and will review results next week. Depending on the results, we will likely be proceeding with continuous 5FU for 3 weeks. [facility]erral placed to [facility]. I spoke with Jojo in intake. Pt has medicare and HCAP through [facility].Since he is not homebound, he will be responsible for $50 self pay for every 15 min of service. The average time for hookup is 1hr 30 min. Pt states that he cannot afford this and would end up trying to take the pills instead. Pt's states that they would like to check coverage for the continuous infusion and make decision after they know that and know the results of the CT scan. Pt will f/u withDr. valles on 04/26/17 and will go forward from there. Tania with [facility] is checking into coverage/benefits for the Pt and will be in contact with the Pt. Consent has been started and placed in clinic to sign at on 04/26/17. Pt given teaching sheets and gave short review on 5FU side effects as they were feeling overwhelmed and considering not even doing this tx. Pt encouraged to review teaching materials and await benefitsinfo prior to making a decision on his tx plan. Dr. Valles notified of the above.Sherif Valles MD - 04/19/2017 10:59 AM EST Formatting of this note may be different from the original. [facility] [address] [facility] [phone] Hematology and Oncology Progress Note Patient Name: Elbert Canales MR #: [id number] : @ [facility] #: [id number] Date of Service: 04/19/17 Clinician: Sherif Valles MD Diagnosis: Pancreatic cancer, [...] Colonic diverticulosis without evidence of diverticulitis. 7. Cgyg-bw-mzstxpnl constipation. 8. Moderate prostatomegaly. MRI Abdomen on [...] on 10/31/2016, by Dr. Partha Muñoz at [place] which showed a mass in thepancreatic head [...] 19-9 at 345. He was admitted at [facility] on 12/09/2016, with 1 day of increased [...] discharged yesterday. He was again discharged from [facility] on 12/18/2016. He was admitted on 12/15 [...] also unremarkable with improving hemoglobin at 13.3. He is here for followup evaluation. He is doing relatively well with minimal diarrhea now, on Creon2-3 times a day. He denies any abdominal pain, nausea, vomiting, or constipation. His appetite is good. Assessment/Plan: Pancreatic cancer (adenocarcinoma), involving pancreatic [...] to pancreatic enzyme deficiency. Diarrhea controlled withCreon. Today I reviewed lab findings with him and his . CA19-9 level is going up and further options reviewed with him regarding previously discussed chemoradiation regimen with continuous 5-FU versus continuing to observe and retreatment or best supportive care for recurrent disease. He is interested in starting treatment now, but at this time we will plan to get imaging studies for restaging purposebefore the treatment. I have discussed the risks and benefits of chemotherapy, side effect profile of continuous 5-FU. We will limit the dose of 5-FU infusional to 225 mg/sq m per day. He was provided with chemotherapy information, and consent will be taken. I will re-evaluate him after the CT scan next week. Regimen planned as per RTOG trial 97-04, [...] He voiced understanding with the above discussion. I have also advised him to continue lasix prn for edema. Advised him to elevate his legs also. Review of Systems: 12 point review of [...] mood and affect. Vital Signs: BP (!) 174/80 (BP Location: Right arm) Pulse 82 Temp 98.7 ??F (37.1 ??C) (Temporal) Wt 65.2kg (143 lb 12.8 oz) BMI 21.86 kg/m?? Last Height and Weight with BMI: 65.2 kg (143 lb 12.8 oz) Body mass index is 21.86 kg/m??. PMH/PSH/FH/SH: Past Medical History: Diagnosis Date ??? Arthritis ??? BPH (benign prostatic hyperplasia) ??? Cancer (HCC) skin cancer ??? Cataract ??? Chemotherapy adverse reaction 12/01/2016 has had 2 treatments-- getting port now. Had adverse reaction to zofran after first treatment ??? Chronic diarrhea current problem (07/21/16), stool specimen positive for blood ([facility]) per pt ??? Colon polyps 2010 benign [...] Procedure: COLONOSCOPY; Surgeon: Kota Vences MD; Location: [facility] Endo; Service: ??? INSERTION SUBCUTANEOUS PORT N/A 12/04/2016 Procedure: PORT PLACEMENT ; Surgeon: Kota Vences MD; Location: [facility] Main OR; Service: ??? PROSTATE BIOPSY ??? SINUS SURGERY 2003 ??? WHIPPLE PROCEDURE N/A 01/24/2017 Procedure: WHIPPLE PROCEDURE; Surgeon: Inder Guillen MD; [facility]; Service: Family History Problem [...] 2 (two) times a day. 01/11/12 Historical ProviderMD WOLF NASAL 0.65 % nasal spray Instill 2 sprays into each nostril as needed . 09/25/15 Historical Provider, omeprazole (PRILOSEC) 40 MG capsule Take 1 (one) capsule (40 mg total) by mouth daily. 08/18/16 08/18/17 Jus Allison MD oxygen Inhale 2.5 L/min nightly. Historical Provider, pancrelipase, Gtx-Lhnz-Vaof, (CREON) 12,000-38,000 -60,000 unit CpDR capsule Take [...] The above 18 analytes were performed by [address] [address] Ordered on: 07/07/2014, EMMA ALLISON Tests Performed at: [facility] (Unless Otherwise Specified) [address] [place] [address], [address] - [place] #[id number] [facility] - Order ID:[id number] Sample ID:[id number] Total Protein Date Value Ref Range Status [...] were reviewed. Follow Up: Return in about 6 days (around 04/25/2017) for Office Visit, Infusion - See Treatment Plan, Labs - See Treatment Plan, Imaging - See orders. Orders Placed This Encounter Procedures ??? CT Chest Abdomen Pelvis With Contrast Standing Status: Future Standing Expiration Date: 04/20/2018 Scheduling Instructions: If patient is allergic to contrast, appointment must be scheduled in a hospital CT dept.: [place], [facility] [place], [facility], [place], [place] or [facility], Sunday thru Sunday only. If the patient has a contrast allergy, please contact [facility] Rad[facility] Chart compilers for assistance with ordering Radiology Premedication Protocol. Schedule at the main hospital if patient is also having a procedure done at the hospital (ex: NucMed Scan). CT Abdomen and or Pelvis with MRI - schedule CT at least 2 hours before or 2 hours after MRI. NEW: If patient age under 18 years, do not schedule at [facility] Imaging Doctors - call the department at [phone] when scheduling any child from the age of 6 months to 5 years to see if medication is necessary Aneesh - Call CT [phone] before scheduling a CTA and a CT on the same day - there is a chance these two tests cannot be performed on the same day. Do not schedule any CT with contrast after 5pm. The last available with contrast CT is 4:30pm. [place] - age limit 16 and over [place] - when the caller is requesting [place] for their CT please scan [place] as well. IfBing appointment is sooner notify caller and ask if they would like that slot. Order Specific Question: Reason for Exam: Answer: Pancreatic cancer s/p surgery, increasing tumor markers, for follow up. Order Specific Question: Does the patient require moderate sedation? Answer: No Order Specific Question: Does this exam require IV hydration? Answer: No ? Sherif Valles MD [facility] [address] [facility], [address] [place] [address] [phone] [phone] CC: MD Inder Fink MD Andrew Freeman, MD in this encounter Plan of Treatment Upcoming Encounters Date Type Specialty Care Team Description 04/25/2017 Radiation Oncology Radiation Oncology 04/26/2017 Office Visit Oncology Sherif Valles MD [address] [facility] [address] [place], [place] [id number] 05/11/2017 Office Visit Primary Care Jus Allison MD [address] [place] [address] Scheduled Tests Name Priority Associated Diagnoses Order Schedule CT Chest Abdomen Pelvis Routine Chemotherapy follow-up Expected: 04/19/2017 With Contrast examination (Approximate), Expires: Malignant neoplasm of head 04/20/2018 of pancreas (HCC) Scheduled Referrals Name Priority Associated Diagnoses Order Schedule Ambulatory referral to Routine Chemotherapy follow-up Expected: 04/26/2017 Home Health examination (Approximate), Encounter for antineoplastic Expires: 04/19/2018 chemotherapy Malignant neoplasm of head of pancreas (HCC) Health Maintenance Due Date Last Done Comments TETANUS EVERY 10 YR 1940 ZOSTER VACCINE 2001 PNEUMOCOCCAL VACCINE AGE 65+ (1 of 2 2006 - PCV13) SEQUENTIAL INFLUENZA VACCINE (#1) [address] Low-dose [address] Lung Cancer Screen 02/22/2018 02/22/2017, 01/03/2017, 10/16/2016 COLONOSCOPY 07/27/2021 07/27/2016, 01/12/2010 as of this encounter Implants Implanted Type Area Clinical Sociologist Device Expiration Model / Identifier Date Serial / Lot Port Implanted Mri Isp W/8fr Cath Powerport - [id number] Catheter - Right: BARD PERIP 12/26/2017 [id number] / Implanted: Qty: 1 on 12/04/2016 by Kota Vences MD Implant Subclavian / [id number] Cath 90cm Peritoneal Open End W/Wall Slits - [id number] Catheter - N/A: Abdomen MEDTRO SHAGGY [id number] / Implanted: Qty: 1 on 01/24/2017 by Inder Guillen MD Implant / Sealant 10ml Floseal Matrix Hemostatic W/Ndl-Free Adapter - [id number] N/A: Abdomen TOBAR BIO 03/20/2018 [id number] / Implanted: Qty: 2 on 01/24/2017 by Inder Guillen MD / [id number] as of this encounter Visit Diagnoses Diagnosis Chemotherapy follow-up examination - Primary Encounter for antineoplastic chemotherapy Malignant neoplasm of head of pancreas (HCC) Malignant neoplasm of head of pancreas Insurance Payer Benefit Plan / Group Subscriber ID Type Phone Address [employer] MANAGED MEDICARE HUMANA [facility] GOLD [employer]US O xxxxxxxxx HCAP/JESSICA 80% JESSICA xxxxxxxxx [phone] [place] [address] as of this encounter
--- OUTSIDE RECORDS SUMMARY | 2018-05-19 09:04 | XMS RPT_ITS | Summary of Care ---
:1940 Author Organization [facility] Address [address] [id number] Care Team Providers Name Role Phone Jus Allison MD Primary Care Provider Sherif Valles MD Unavailable Varsha Pineda CNP Unavailable Fran Burris MD Unavailable Inder Guillen MD Unavailable Estefany Gaxiola RN Unavailable Unavailable Reason for Referral MRI/CAT/PET Scan (Routine) Status Reason Specialty Diagnoses / Procedures Referred By Contact Referred To Contact Closed Radiology Diagnoses Malignant neoplasm of head of pancreas (HCC) Chemotherapy follow-up examination Sherif Valles MD Procedures CT Chest Abdomen Pelvis With Contrast [address] [address] MRI/CAT/PET Scan (Routine) Status Reason Specialty Diagnoses / Procedures Referred By Contact Referred To Contact Closed Radiology Diagnoses Malignant neoplasm of head of pancreas (HCC) Chemotherapy follow-up examination Sherif Valles MD Procedures CT Chest Abdomen Pelvis With Contrast [address] [address] Reason for Visit MRI/CAT/PET Scan (Routine) Status Reason Specialty Diagnoses / Procedures Referred By Contact Referred To Contact Closed Radiology Diagnoses Malignant neoplasm of head of pancreas (HCC) Chemotherapy follow-up examination Sherif Valles MD Procedures CT Chest Abdomen Pelvis With Contrast [address] [address] Encounter Details Date Type Department Care Team Description 08/13/2017 Hospital Encounter [facility] Sherif Valles MD Malignant neoplasm of head of pancreas (HCC); Center CT Scan [address] [facility] Chemotherapy follow-up examination [address] [facility] [address] [place] [address] [place] [address] [phone] Allergies Active Allergy Reactions Severity Noted Date [...] (one) 90 capsule 11 03/02/2017 03/02/2018 Active Pob-Ebks-Zfbm, (CREON) capsule (12,000 12,000-38,000 -60,000 units of lipase unit CpDR capsule total) by mouth 3 (three) times a day with meals. loperamide (IMODIUM) 2 Take 2 mg by 05/01/2017 Active mg capsule mouth as needed for diarrhea. diphenhydrAMINE Take 25 mg by Active (BENADRYL) 25 mg mouth as needed capsule for itching. fluorouracil (5-FU) [The details of 1 each 0 06/11/2017 Active chemo home the medication infusionIndications: are not Malignant neoplasm of available head of pancreas (HCC) because there are pending changes by a home health clinician.] aspirin 81 mg chewable Chew and Swallow [...] Encounters Date Type Specialty Care Team Description 08/16/2017 Radiation Oncology Radiation Oncology Cole Rivera MD [address] [address] [phone] 08/16/2017 Office Visit Oncology Juancarlos Gabriel MD [address] [id number] Sherif Valles MD [address] [address] [phone] Health Maintenance Due Date Last Done Comments TETANUS EVERY 10 YR 1940 ZOSTER VACCINE 2001 PNEUMOCOCCAL VACCINE AGE 65+ (1 of 2006 2 - PCV13) SEQUENTIAL INFLUENZA VACCINE 10/27/2017 (Season Ended) Low-dose CT Lung Cancer Screen 04/24/2018 04/24/2017, 02/22/2017, 01/03/2017, Additional history exists as of this encounter Implants Implanted Type Area Car Customizer Device Expiration Model / Identifier Date Serial / Lot Port Implanted Mri Isp W/8fr Cath Powerport - [id number] Catheter - Right: BARD PERIP 12/26/2017 [id number] / Implanted: Qty: 1 on 12/04/2016 by Kota Vences MD Implant Subclavian / [id number] Cath 90cm Peritoneal Open End W/Wall Slits - [id number] Catheter - N/A: Abdomen MEDTRO SHAGGY [id number] / Implanted: Qty: 1 on 01/24/2017 by Inder Guillen MD Implant / Sealant 10ml Floseal Matrix Hemostatic W/Ndl-Free Adapter - [id number] N/A: Abdomen TOBAR BIO 03/20/2018 [id number] / Implanted: Qty: 2 on 01/24/2017 by Inder Guillen MD / [id number] as of this encounter Results CT Chest Abdomen Pelvis With Contrast (08/13/2017 11:28 AM) Specimen Performing Laboratory [facility] Impressions 1.?Postoperative changes are again noted. 2.?No evidence of significant lymphadenopathy or other abnormal mass. 3.?Extensive pulmonary emphysema again noted. Qlika Workstation ID:? [id number] Narrative EXAMINATION: CT CHEST ABDOMEN PELVIS WITH CONTRAST HISTORY: ORDERING SYSTEM PROVIDED HISTORY:?Pancreatic cancer s/p surgery, s/p chemoRT, for follow up., TECHNOLOGIST PROVIDED HISTORY: Reason for exam: pancreatic ca Illness/Other Encounter Type: Subsequent/Follow-up Additional signs and symptoms: restage ORDERING SYSTEM PROVIDED DIAGNOSIS CODES: C25.0 Malignant neoplasm of head of pancreas (HCC) Z09 Chemotherapy follow-up examination COMPARISON: 04/24/2017. TECHNIQUE: CT examination of the chest, abdomen, and pelvis following the administration of intravenous and oral contrast.?Coronal and sagittal reformations were performed. Dose reduction techniques were achieved by using automated exposure control and/or adjustment of mA and/or kV according to patient size and/or use of iterative reconstruction technique. CONTRAST: IOPAMIDOL 76 % ORAL?-?18 mL, IOPAMIDOL 76 % INTRAVENOUS SOLUTION?-?100 mL, FINDINGS: CHEST:?There is no significant lymphadenopathy. Thoracic aorta is normal in caliber without dissection.?There is mild vascular calcification.?Moderate coronary artery calcifications are noted.?There is no significant pericardial effusion. There is a suggestion of small hypodense nodules in the bilateral thyroid lobes.?These were also present previously. Right-sided chest port is again noted. There are no suspicious pulmonary masses.?Extensive emphysema is again noted with greatest involvement in the upper lobes. There are no acute bony abnormalities.?There are no aggressive-appearing bony lesions. ABDOMEN/PELVIS:?A small hypodensity in the anterior liver is unchanged and may represent a cyst.?There are no suspicious hepatic masses. The spleen enhances homogeneously. The visualized portions of the pancreas are atrophic with prominent pancreatic duct.?This is unchanged from the prior study.?Changes of Whipple procedure are again noted. There is pneumobilia again noted. The bilateral adrenal glands appear normal. The kidneys enhance symmetrically.?There is no hydronephrosis. There are no stones in the bladder.?No bladder wall thickening. Enlargement of the prostate gland is again noted. There is no free air or free fluid.?There are no abscesses. There is no significant lymphadenopathy. No evidence of intestinal obstruction. No acute bony abnormalities.?No aggressive-appearing bony lesions. Procedure Note Interface, Rad In User Replayq - 08/13/2017 12:29 PM EDT EXAMINATION: CT CHEST ABDOMEN PELVIS WITH CONTRAST HISTORY: ORDERING SYSTEM PROVIDED HISTORY: Pancreatic cancer s/p surgery, s/p chemoRT, for follow up., TECHNOLOGIST PROVIDED HISTORY: Reason for exam: pancreatic ca Illness/Other Encounter Type: Subsequent/Follow-up Additional signs and symptoms: restage ORDERING SYSTEM PROVIDED DIAGNOSIS CODES: C25.0 Malignant neoplasm of head of pancreas (HCC) Z09 Chemotherapy follow-up examination COMPARISON: 04/24/2017. TECHNIQUE: CT examination of the chest, abdomen, and pelvis following the administration of intravenous and oral contrast. Coronal and sagittal reformations were performed. Dose reduction techniques were achieved by using automated exposure control and/or adjustment of mA and/or kV according to patient size and/or use of iterative reconstruction technique. CONTRAST: IOPAMIDOL 76 % ORAL - 18 mL, IOPAMIDOL 76 % INTRAVENOUS SOLUTION - 100 mL, FINDINGS: CHEST: There is no significant lymphadenopathy. Thoracic aorta is normal in caliber without dissection. There is mild vascular calcification. Moderate coronary artery calcifications are noted. There is no significant pericardial effusion. There is a suggestion of small hypodense nodules in the bilateral thyroid lobes. These were also present previously. Right-sided chest port is again noted. There are no suspicious pulmonary masses. Extensive emphysema is again noted with greatest involvement in the upper lobes. There are no acute bony abnormalities. There are no aggressive-appearing bony lesions. ABDOMEN/PELVIS: A small hypodensity in the anterior liver is unchanged and may represent a cyst. There are no suspicious hepatic masses. The spleen enhances homogeneously. The visualized portions of the pancreas are atrophic with prominent pancreatic duct. This is unchanged from the prior study. Changes of Whipple procedure are again noted. There is pneumobilia again noted. The bilateral adrenal glands appear normal. The kidneys enhance symmetrically. There is no hydronephrosis. There are no stones in the bladder. No bladder wall thickening. Enlargement of the prostate gland is again noted. There is no free air or free fluid. There are no abscesses. There is no significant lymphadenopathy. No evidence of intestinal obstruction. No acute bony abnormalities. No aggressive-appearing bony lesions. IMPRESSION: 1. Postoperative changes are again noted. 2. No evidence of significant lymphadenopathy or other abnormal mass. 3. Extensive pulmonary emphysema again noted. Qlika Workstation ID: [id number] in this encounter Visit Diagnoses Diagnosis Malignant neoplasm of head of pancreas (HCC) Malignant neoplasm of head of pancreas Chemotherapy follow-up examination Administered Medications Inactive Administered Medications - up to 3 most recent administrations Medication Order MAR Action Action Date Dose Rate Site iopamidol (ISOVUE-370) 76 Contrast Administered 08/13/2017 11:18 EDT 100 mL % injection 100 mL 100 mL, Intravenous, Once in imaging, contrast, Starting 08/13/17 at 1113, For 1 dose iopamidol (ISOVUE-370) 76 % oral Contrast Administered 08/13/2017 09:55 EDT 18 mL solution 18 mL 18 mL, Oral, Once in imaging, contrast, Starting 08/13/17 at 0954, For 1 dose in this encounter
--- OUTSIDE RECORDS SUMMARY | 2018-05-19 09:04 | XMS RPT_ITS | Summary of Care ---
:1940 Author Organization [facility] Address [address] [id number] Care Team Providers Name Role Phone Jus Allison MD Primary Care Provider Sherif Valles MD Unavailable Varsha Pineda CNP Unavailable Fran Burris MD Unavailable Inder Guillen MD Unavailable Estefany Gaxiola RN Unavailable Unavailable Encounter Details Date Type Department Care Team Description 06/25/2017 Documentation [facility] Gayle Briscoe, RN Chemo Infusion Therapy [address] [place] [address] Allergies Active Allergy Reactions Severity [...] (one) 90 capsule 11 03/02/2017 03/02/2018 Active Bqh-Gpkx-Miab, (CREON) capsule (12,000 12,000-38,000 -60,000 units of [...] as needed (Ifusaport flush post chemo administration). diphenhydrAMINE Take 25 mg by Active (BENADRYL) [...] file as of this encounter Progress Notes Gayle Briscoe RN - 06/25/2017 10:42 AM EDTC pharmacy Chari callled to get orders for patient for 5FU home infusion,weekly,continuous, gave verbal order for this week. Lavinia STEWARTin this encounter Plan of Treatment Upcoming Encounters Date Type Specialty Care Team Description 06/25/2017 Radiation Oncology Radiation Oncology Arrived 06/26/2017 Office Visit Home Health Services Betty Gates RN 06/26/2017 Radiation Oncology Radiation Oncology 06/27/2017 Radiation Oncology Radiation Oncology 06/28/2017 Radiation Oncology Radiation Oncology 06/29/2017 Radiation Oncology Radiation Oncology 07/02/2017 Office Visit Oncology Sherif Valles MD 801 [facility] [address] [place] [address] [phone] 07/02/2017 Radiation Oncology Radiation Oncology 07/02/2017 Radiation [...] of this encounter Implants Implanted Type Area Resident Advisor Device Expiration Model / Identifier Date Serial / Lot Port Implanted Mri Isp W/8fr Cath Powerport - [id number] Catheter - Right: BARD PERIP 12/26/2017 [id number] / Implanted: Qty: 1 on 12/04/2016 by Kota Vences MD Implant Subclavian / [id number] Cath 90cm Peritoneal Open End W/Wall Slits - [id number] Catheter - N/A: Abdomen MEDTRO SHAGGY [id number] / Implanted: Qty: 1 on 01/24/2017 by Inder Guillen MD Implant / Sealant 10ml Floseal Matrix Hemostatic W/Ndl-Free Adapter - [id number] N/A: Abdomen TOBAR BIO 03/20/2018 [id number] / Implanted: Qty: 2 on 01/24/2017 by Inder Guillen MD / [id number] as of this encounter
--- OUTSIDE RECORDS SUMMARY | 2018-05-19 09:04 | XMS RPT_ITS | Summary of Care ---
:1940 Author Organization [facility] Address [address] [place] [address] Care Team Providers Name Role Phone Jus Allison MD Primary Care Provider Sherif Valles MD Unavailable Varsha Pineda CNP Unavailable Fran Burris MD Unavailable Inder Guillen MD Unavailable Estefany Gaxiola RN Unavailable Unavailable Reason for Visit Reason Comments port draw cbc with diff cmp ca19-9 Encounter Details Date Type Department Care Team Description 04/18/2017 Nurse Only [facility] Sherif Valles MD Malignant neoplasm of head of pancreas (HCC) (Primary Dx); Center Chemo 801 [facility] Encounter for antineoplastic chemotherapy Infusion Therapy Anand [address] [place] [address] [place] [address] [phone] Allergies Active Allergy Reactions Severity Noted Date [...] (one) 90 capsule 11 03/02/2017 03/02/2018 Active Upg-Ooga-Wrak, capsule (12,000 (CREON) 12,000-38,000 units of lipase [...] Vital Sign Reading Time Taken Blood Pressure 165/85 04/18/2017 11:28 AM EST Pulse 84 04/18/2017 11:28 AM EST Temperature 37.1 ??C (98.7 ??F) 04/18/2017 11:28 AM EST Respiratory Rate 18 04/18/2017 11:28 AM EST Oxygen Saturation - - Inhaled Oxygen Concentration - - Weight 65.7 kg (144 lb 12.8 oz) 04/18/2017 11:28 AM EST Height 172.7 cm (5' 8) 04/18/2017 11:28 AM EST Body Mass Index 22.02 04/18/2017 11:28 AM EST in this encounter Plan of Treatment Upcoming Encounters Date Type Specialty Care Team Description 04/19/2017 Office Visit Oncology Sherif Valles MD [address] [place] [address] [phone] 04/25/2017 Radiation Oncology Radiation Oncology 05/11/2017 Office Visit Primary Care Jus Allison MD [address] [place] [address] Pending Results Name Priority Associated Diagnoses Date/Time CA 19-9 Routine Malignant neoplasm of head of pancreas (HCC) 04/18/2017 12:00 PM EST Health Maintenance Due Date Last Done Comments TETANUS EVERY 10 YR 1940 ZOSTER VACCINE 2001 PNEUMOCOCCAL VACCINE AGE 65+ (1 of 2 2006 - PCV13) SEQUENTIAL INFLUENZA VACCINE (#1) 2016 Low-dose CT Lung Cancer Screen 02/22/2018 02/22/2017, 01/03/2017, 10/16/2016 COLONOSCOPY 07/27/2021 07/27/2016, 01/12/2010 as of this encounter Implants Implanted Type Area Solar Energy Engineer Device Expiration Model / Identifier Date Serial / Lot Port Implanted Mri Isp W/8fr Cath Powerport - [id number] Catheter - Right: BARD PERIP 12/26/2017 [id number] / Implanted: Qty: 1 on 12/04/2016 by Kota Vences MD Implant Subclavian / [id number] Cath 90cm Peritoneal Open End W/Wall Slits - [id number] Catheter - N/A: Abdomen MEDTRO SHAGGY [id number] / Implanted: Qty: 1 on 01/24/2017 by Inder Guillen MD Implant / Sealant 10ml Floseal Matrix Hemostatic W/Ndl-Free Adapter - [id number] N/A: Abdomen TOBAR BIO 03/20/2018 [id number] / Implanted: Qty: 2 on 01/24/2017 by Inder Guillen MD / [id number] as of this encounter Results CBC Auto Differential (04/18/2017 12:00 PM) Component Value Ref Range WBC 5.52 4.50 - 11.00 K/mcL RBC 4.42 (L) 4.50 - 5.90 M/mcL Hemoglobin 13.3 (L) 13.5 - 17.5 g/dL Hematocrit 39.8 (L) 41.0 - 53.0 % MCV 90.0 80.0 - 100.0 fL MCH 30.1 26.0 - 34.0 pg MCHC 33.4 31.0 - 37.0 g/dL Platelets 201 150 - 400 K/mcL RDW - CV 13.8 11.6 - 14.8 % MPV 10.0 9.0 - 15.5 fL Neutrophils 51.4 % Lymphocytes 37.7 % Monocytes 6.7 % Eosinophils 3.3 % Basophils 0.9 % Neutrophils Abs 2.84 1.70 - 7.00 K/mcL Lymphocytes Abs 2.08 0.90 - 4.00 K/mcL Monocytes Abs 0.37 0.30 - 0.90 K/mcL Eosinophils Abs 0.18 0.00 - 0.50 K/mcL Basophils Abs 0.05 0.00 - 0.30 K/mcL Nucleated RBC 0.0 % Nucleated RBC Abs 0.00 0.00 - 0.00 K/mcL Specimen Performing Laboratory Blood [facility] [address] [place] [address] Comprehensive Metabolic Panel (04/18/2017 12:00 PM) Component Value Ref Range Sodium 136 135 - 145 mmol/L Potassium 4.1 3.5 - 5.1 mmol/L Chloride 98 98 - 108 mmol/L Bicarbonate 27 21 - 32 mmol/L Anion Gap 15 10 - 20 mmol/L Glucose 162 (H) 65 - 99 mg/dL BUN 8 8 - 25 mg/dL Creatinine 0.66 (L) 0.80 - 1.30 mg/dL eGFR 95 >=60 mL/min/1.73 m2 BUN/Creatinine Ratio 12.1 10.0 - 20.0 Total Protein 6.4 6.0 - 8.0 g/dL Albumin 3.6 3.2 - 5.2 g/dL Calcium 8.7 8.4 - 10.2 mg/dL Alkaline Phosphatase 83 40 - 150 U/L AST 16 0 - 45 U/L ALT 10 0 - 40 U/L Total Bilirubin 0.3 0.0 - 1.3 mg/dL Specimen Performing Laboratory Blood [facility] [address] [place] [address] Narrative The eGFR should be used for monitoring renal function only and not for medication dosing. CBC and Differential (04/18/2017 12:00 PM) Specimen Performing Laboratory Blood Narrative The following orders were created for panel order CBC and Differential. Procedure? Abnormality? Status? ---------? ------? CBC Auto Differential[[id number]]?Abnormal?Final result? Please view results for these tests on the individual orders. in this encounter Visit Diagnoses Diagnosis Malignant neoplasm of head of pancreas (HCC) - Primary Malignant neoplasm of head of pancreas Encounter for antineoplastic chemotherapy Administered Medications Inactive Administered Medications - up to 3 most recent administrations Medication Order MAR Action Action Date Dose Rate Site heparin, porcine (PF) injection Given 04/18/2017 11:59 EST 500 Units 500 Units 500 Units, Intravenous, As needed, For port needle removal and monthly., Starting Sun04/18/17 at 1137, For ports, flush with 10 mL 0.9% NaCl IV and 5 mL Heparin (100 units/mL) prior to needle removal and every month when not in use. sodium chloride (PF) (NS) flush 10 mL Given 04/18/2017 11:58 EST 10 mL 10 mL, Intravenous, As needed, line care, Starting 04/18/17 at 1137, For Central Lines. Flush before and after medication administration. sodium chloride (PF) (NS) flush 20 mL Given 04/18/2017 11:59 EST 20 mL 20 mL, Intravenous, As needed, line care, Starting 04/18/17 at 1137, For Central Lines. Flush after TPN, blood products, and blood draws. in this encounter Insurance Payer Benefit Plan / Group Subscriber ID Type Phone Address [employer]MA[employer] MANAGED MEDICARE HUMANA MCR GOLD PLUS O xxxxxxxxx HCAP/JESSICA 80% JESSICA xxxxxxxxx Home: [address] [place], [place] [phone] [address] as of this encounter
--- OUTSIDE RECORDS SUMMARY | 2018-05-19 09:04 | XMS RPT_ITS | Summary of Care ---
:1940 Author Organization [facility] Address [address] [id number] Care Team Providers Name Role Phone Jus Allison MD Primary Care Provider Sherif Valles MD Unavailable Varsha Pineda CNP Unavailable Fran Burris MD Unavailable Inder Guillen MD Unavailable Estefany Gaxiola RN Unavailable Unavailable Reason for Visit Auth/Cert Status Reason Specialty Diagnoses / Procedures Referred By Contact Referred To Contact Encounter Details Date Type Department Care Team Description 06/26/2017 Home Care Visit [facility] Kelly Rubio [facility] Dianna, PAT RECERTIFICATION [address] [place] [address] Allergies Active Allergy Reactions Severity Noted Date Comments Ciprofloxacin Hives 12/01/2014 Hives in the 80s Gemcitabine 02/09/2017 Penicillin Hives 12/01/2014 Hives in the 80s Tetracycline 12/01/2014 Ondansetron Hcl Hives 11/30/2016 Itching, hives, shortness of breath, sweating as of this encounter Medications Prescription Sig. Disp. Refills Start Date End Date Status mometasone-formoterol Inhale 2 puffs 2 01/11/2012 Active (DULERA) 200-5 (two) times a mcg/actuation HF day. oxygen Inhale 2.5 L/min Active nightly. omeprazole (PRILOSEC) Take 1 (one) 30 capsule 11 08/18/2016 08/18/2017 Active 40 MG capsule (40 mg capsuleIndications: total) by mouth Generalized abdominal daily. pain pancrelipase, Take 1 (one) 90 capsule 11 03/02/2017 03/02/2018 Active Ofn-Wiol-Hiaq, (CREON) capsule (12,000 12,000-38,000 -60,000 units of [...] Vital Sign Reading Time Taken Blood Pressure 138/72 06/26/2017 9:48 AM EDT Pulse 74 06/26/2017 9:48 AM EDT Temperature 35.6 ??C (96 ??F) 06/26/2017 9:48 AM EDT Respiratory Rate 20 06/26/2017 9:48 AM EDT Oxygen Saturation 96% 06/26/2017 9:48 AM EDT Inhaled Oxygen Concentration - - Weight - - Height - - Body Mass Index - - in this encounter Plan of Treatment Upcoming Encounters Date Type Specialty Care Team Description 06/27/2017 Radiation Oncology Radiation Oncology 06/28/2017 Radiation Oncology Radiation Oncology 06/29/2017 Radiation Oncology Radiation Oncology 07/02/2017 Office Visit Oncology Sherif Valles MD [address] [place] [address] [phone] 07/02/2017 Radiation Oncology Radiation Oncology 07/02/2017 Radiation Oncology Radiation Oncology 07/03/2017 Office Visit Home Health Services Betty Gates RN 07/03/2017 Radiation Oncology Radiation Oncology 07/04/2017 Radiation Oncology Radiation Oncology 07/05/2017 Radiation Oncology Radiation Oncology 07/06/2017 Radiation Oncology Radiation Oncology 07/09/2017 Radiation Oncology Radiation Oncology 07/10/2017 Office Visit Home Health Services Betty Gates RN 07/10/2017 Radiation Oncology Radiation Oncology 07/11/2017 Radiation Oncology Radiation Oncology 07/12/2017 Radiation Oncology Radiation Oncology 07/13/2017 Radiation Oncology Radiation Oncology 07/16/2017 Radiation Oncology Radiation Oncology 07/17/2017 Office Visit Home Health Services Betty Gates RN 07/17/2017 Radiation Oncology Radiation Oncology 07/18/2017 Radiation Oncology Radiation Oncology 07/19/2017 Radiation Oncology Radiation Oncology 07/24/2017 Office Visit Home Health Services Betty Gates RN 07/31/2017 Office Visit Home Health Services Betty Gates RN 08/01/2017 Radiation Oncology Radiation Oncology 08/07/2017 Office Visit Home Health Services Betty Gates RN 08/14/2017 Office Visit Home Health Services Betty Gates, PAT 08/21/2017 Office Visit Home Health Services Betty Gates RN 08/28/2017 Office Visit Home Health Services Betty Gates, RN Health Maintenance Due Date Last Done Comments TETANUS EVERY 10 YR 1940 ZOSTER VACCINE 2001 PNEUMOCOCCAL VACCINE AGE 65+ (1 of 2006 2 - PCV13) SEQUENTIAL INFLUENZA VACCINE 10/27/2017 (Season Ended) Low-dose CT Lung Cancer Screen 04/24/2018 04/24/2017, 02/22/2017, 01/03/2017, Additional history exists COLONOSCOPY 07/27/2021 07/27/2016, 01/12/2010 as of this encounter Implants Implanted Type Area Aircraft Sales Representative Device Expiration Model / Identifier Date Serial / Lot Port Implanted Mri Isp W/8fr Cath Powerport - [id number] Catheter - Right: BARD PERIP 12/26/2017 [id number] / Implanted: Qty: 1 on 12/04/2016 by Kota Vences MD Implant Subclavian / [id number] Cath 90cm Peritoneal Open End W/Wall Slits - [id number] Catheter - N/A: Abdomen MEDTRO SHAGGY [id number] / Implanted: Qty: 1 on 01/24/2017 by Inder Guillen MD Implant / Sealant 10ml Floseal Matrix Hemostatic W/Ndl-Free Adapter - [id number] N/A: Abdomen TOBAR BIO 03/20/2018 [id number] / Implanted: Qty: 2 on 01/24/2017 by Inder Guillen MD / [id number] as of this encounter Administered Medications Active Administered Medications - up to 3 most recent administrations Medication Order MAR Action Action Date Dose Rate Site fluorouracil (5-FU) chemo home Given 06/26/2017 09:40 EDT 2,205 mg infusion Infuse 2,205 (two thousand two hundred five) mg into a venous catheter over 168 hr via ambulatory infusion pump.., Starting 06/11/2017, Print heparin flush,porcine,-0.9NaCl 100 unit/mL Kit Given 06/26/2017 09:40 EDT 5 mL Infuse 5 mL into a venous catheter as needed (Ifusaport flush post chemo administration)., Starting Sun05/01/2017, Historical Med sodium chloride, PF, (NORMAL SALINE FLUSH) Given 06/26/2017 09:40 EDT 10 mL injection Infuse 10 mL into a venous catheter as needed (Infusaport flush before and after chemo administration)., Starting Sun05/01/2017, Historical Med in this encounter
--- OUTSIDE RECORDS SUMMARY | 2018-05-19 09:04 | XMS RPT_ITS | Summary of Care ---
:1940 Author Organization [facility] Address [address] [phone] Care Team Providers Name Role Phone Jus Allison MD Primary Care Provider Sherif Valles MD Unavailable Varsha Pineda CNP Unavailable Fran Burris MD Unavailable Inder Guillen MD Unavailable Estefany Gaxiola RN Unavailable Unavailable Reason for Visit Auth/Cert Status Reason Specialty Diagnoses / Procedures Referred By Contact Referred To Contact Encounter Details Date Type Department Care Team Description 05/01/2017 Home Care Visit [facility] Gianna [facility] [place], [address] [address] [place] [address] Allergies Active Allergy Reactions Severity [...] (one) 90 capsule 11 03/02/2017 03/02/2018 Active Suw-Mjhg-Gdop, capsule (12,000 (CREON) units of lipase 12,000-38,000 total) by mouth 3 -60,000 unit CpDR (three) times a capsule day with meals. fluorouracil (5-FU) Infuse 2,804 (two 1 each 0 04/26/2017 Active chemo home thousand eight infusionIndications: hundred four) mg Malignant neoplasm into a venous of head of pancreas catheter over 168 (HCC) hr via ambulatory infusion pump.. loperamide (IMODIUM) Take 2 mg by 05/01/2017 Active 2 mg capsule mouth as needed for diarrhea. as of this encounter Active Problems Problem [...] Vital Sign Reading Time Taken Blood Pressure 142/70 05/01/2017 9:37 AM EST Pulse 82 05/01/2017 9:37 AM EST Temperature 36.8 ??C (98.2 ??F) 05/01/2017 9:37 AM EST Respiratory Rate 18 05/01/2017 9:37 AM EST Oxygen Saturation 98% 05/01/2017 9:37 AM EST Inhaled Oxygen Concentration - - Weight 65.3 kg (144 lb) 05/01/2017 9:37 AM EST Height 172.7 cm (5' 8) 05/01/2017 9:37 AM EST Body Mass Index 21.9 05/01/2017 9:37 AM EST in this encounter Plan of Treatment Upcoming Encounters Date Type Specialty Care Team Description 05/07/2017 Office Visit Oncology Sherif Valles MD [address] [id number] Varsha Pineda CNP [address] [id number] 05/22/2017 Office Visit Oncology Sherif Valles MD [address] [id number] Health Maintenance Due Date Last Done Comments TETANUS EVERY 10 YR 1940 ZOSTER VACCINE 2001 PNEUMOCOCCAL VACCINE AGE 65+ (1 of 2006 2 - PCV13) SEQUENTIAL INFLUENZA VACCINE (#1) 2016 Low-dose CT Lung Cancer Screen 04/24/2018 04/24/2017, 02/22/2017, 01/03/2017, Additional history exists COLONOSCOPY 07/27/2021 07/27/2016, 01/12/2010 as of this encounter Implants Implanted Type Area Farmworker Rice Device Expiration Model / Identifier Date Serial / Lot Port Implanted Mri Isp W/8fr Cath Powerport - [id number] Catheter - Right: BARD PERIP 12/26/2017 [id number] / Implanted: Qty: 1 on 12/04/2016 by Kota Vences MD Implant Subclavian / [id number] Cath 90cm Peritoneal Open End W/Wall Slits - [id number] Catheter - N/A: Abdomen MEDTRO SHAGGY [id number] / Implanted: Qty: 1 on 01/24/2017 by Inder Guillen MD Implant / Sealant 10ml Floseal Matrix Hemostatic W/Ndl-Free Adapter - [id number] N/A: Abdomen TOBAR BIO 03/20/2018 [id number] / Implanted: Qty: 2 on 01/24/2017 by Inder Guillen MD / [id number] as of this encounter Administered Medications Active Administered Medications - up to 3 most recent administrations Medication Order MAR Action Action Date Dose Rate Site sodium chloride, PF, (NORMAL SALINE Given 05/01/2017 09:00 EST 10 mL FLUSH) injection Infuse 10 mL into a venous catheter as needed (Infusaport flush before and after chemo administration)., Starting Sun05/01/2017, Historical Med in this encounter Insurance Payer Benefit Plan / Group Subscriber ID Type Phone Address HUMANA MANAGED MEDICARE HU[employer]NA [place] [facility] [place] HCAP/JESSICA 80% JESSICA xxxxxxxxx [phone] [address] as of this encounter
--- OUTSIDE RECORDS SUMMARY | 2018-05-19 09:04 | XMS RPT_ITS | Summary of Care ---
:1940 Author Organization [facility] Address [address] [phone] Care Team Providers Name Role Phone Jus Allison MD Primary Care Provider Sherif Valles MD Unavailable Varsha Pineda CNP Unavailable Fran Burris MD Unavailable Inder Guillen MD Unavailable Estefany Gaxiola RN Unavailable Unavailable Reason for Visit Auth/Cert Status Reason Specialty Diagnoses / Procedures Referred By Contact Referred To Contact Encounter Details Date Type Department Care Team Description 07/17/2017 Home Care Visit [facility] Betty Gates SN IV THERAPY Health RN ROUTINE-BILLABLE [address] [place] [address] Allergies Active Allergy Reactions Severity [...] (one) 90 capsule 11 03/02/2017 03/02/2018 Active Lrp-Eoek-Rily, (CREON) capsule (12,000 12,000-38,000 -60,000 units of [...] Vital Sign Reading Time Taken Blood Pressure 116/62 07/17/2017 9:37 AM EDT Pulse 71 07/17/2017 9:37 AM EDT Temperature 36.8 ??C (98.2 ??F) 07/17/2017 9:37 AM EDT Respiratory Rate 16 07/17/2017 9:37 AM EDT Oxygen Saturation 98% 07/17/2017 9:37 AM EDT Inhaled Oxygen Concentration - - Weight 61.2 kg (135 lb) 07/17/2017 9:37 AM EDT Height - - Body Mass Index 20.53 07/17/2017 9:37 AM EDT in this encounter Plan of Treatment Upcoming Encounters Date Type Specialty Care Team Description 07/18/2017 Radiation Oncology Radiation Oncology 07/19/2017 Radiation Oncology Radiation Oncology 07/24/2017 Office Visit Home Health Services Betty Gates RN 07/31/2017 Office Visit Home Health Services Betty Gates RN 08/01/2017 Radiation Oncology Radiation Oncology 08/07/2017 Office Visit Home Health Services Betty Gates RN 08/13/2017 Nurse Only Infusion Therapy 08/13/2017 Appointment Radiology Sherif Valles MD 801 [facility] [address] [place] [address] [phone] 08/14/2017 Office Visit Home Health Services Btety Gates RN 08/16/2017 Radiation Oncology Radiation Oncology Cole Rivera MD 801 [facility] [address] [place] [address] [phone] 08/16/2017 Office Visit Oncology Sherif Valles MD 801 [facility] Anand [address] [place] [address] [phone] 08/21/2017 Office Visit Home Health Services Betty Gates, PAT 08/28/2017 Office Visit Home Health Services Betty [...] of this encounter Implants Implanted Type Area Supervisor Ornamental Ironworking Device Expiration Model / Identifier Date Serial / Lot Port Implanted Mri Isp W/8fr Cath Powerport - [id number] Catheter - Right: BARD PERIP 12/26/2017 [id number] / Implanted: Qty: 1 on 12/04/2016 by Kota Vences MD Implant Subclavian / [id number] Cath 90cm Peritoneal Open End W/Wall Slits - [id number] Catheter - N/A: Abdomen MEDTRO SHAGGY [id number] / Implanted: Qty: 1 on 01/24/2017 by Inder Guillen MD Implant / Sealant 10ml Floseal Matrix Hemostatic W/Ndl-Free Adapter - [id number] N/A: Abdomen TOBAR BIO 03/20/2018 [id number] / Implanted: Qty: 2 on 01/24/2017 by Inder Guillen MD / [id number] as of this encounter Administered Medications Active Administered Medications - up to 3 most recent administrations Medication Order MAR Action Action Date Dose Rate Site fluorouracil (5-FU) chemo home Given 07/17/2017 09:25 EDT 2,205 mg Port infusion Infuse 2,205 (two thousand two hundred five) mg into a venous catheter over 168 hr via ambulatory infusion pump.., Starting 06/11/2017, Print heparin flush,porcine,-0.9NaCl 100 unit/mL Kit Given 07/17/2017 09:27 EDT 5 mL Port Infuse 5 mL into a venous catheter as needed (Ifusaport flush post chemo administration)., Starting Sun05/01/2017, Historical Med sodium chloride, PF, (NORMAL SALINE FLUSH) Given 07/17/2017 09:26 EDT 10 mL Port injection Infuse 10 mL into a venous catheter as needed (Infusaport flush before and after chemo administration)., Starting Sun05/01/2017, Historical Med in this encounter
--- OUTSIDE RECORDS SUMMARY | 2018-05-19 09:04 | XMS RPT_ITS | Summary of Care ---
:1940 Author Organization [facility] Address [address] [id number] Care Team Providers Name Role Phone Jus Allison MD Primary Care Provider Sherif Valles MD Unavailable Varsha Pineda CNP Unavailable Fran Burris MD Unavailable Inder Guillen MD Unavailable Estefany Gaxiola RN Unavailable Unavailable Reason for Visit Reason Comments Chemotherapy test dose of 5fu r/t home infusion Encounter Details Date Type Department Care Team Description 04/30/2017 Infusion/Inje [facility] Sherif Valles MD Malignant neoplasm of head of pancreas (HCC) (Primary Dx); [facility] Chemo 801 [facility] Encounter for antineoplastic chemotherapy Infusion Therapy Anand [address] [place] [address] [place] [address] [phone] Allergies Active Allergy Reactions Severity Noted Date [...] (one) 90 capsule 11 03/02/2017 03/02/2018 Active Swk-Upif-Texy, capsule (12,000 (CREON) units of lipase 12,000-38,000 [...] Vital Sign Reading Time Taken Blood Pressure 161/91 04/30/2017 2:37 PM EST Pulse 86 04/30/2017 2:37 PM EST Temperature 37.1 ??C (98.8 ??F) 04/30/2017 2:37 PM EST Respiratory Rate 18 04/30/2017 2:37 PM EST Oxygen Saturation - - Inhaled Oxygen Concentration - - Weight 64.4 kg (142 lb) 04/30/2017 2:07 PM EST Height 172.7 cm (5' 8) 04/30/2017 2:07 PM EST Body Mass Index 21.59 04/30/2017 2:07 PM EST in this encounter Progress Notes Leyda Saravia RN - 04/30/2017 2:26 PM [id number] patient arrived no orders signed 1420 orders signed per Patient to start on chemo at home With continuos 5FU 1427 patient to have continous infusion of 5FU to start after test dose today patient verbalizes understanding Of drug Reactions 1545 patient tolerated infusion no s/s of reaction in this encounter Plan of Treatment Upcoming Encounters Date Type Specialty Care Team Description 05/01/2017 Office Visit Home Health Services Gianna Archer, PAT 05/07/2017 Office Visit Oncology Sherif Valles MD [address] [id number] Varsha Pineda CNP [address] [address] [phone] 05/22/2017 Office Visit Oncology Sherif Valles MD [address] [address] [phone] Health Maintenance Due Date Last Done Comments TETANUS EVERY 10 YR 1940 ZOSTER VACCINE 2001 PNEUMOCOCCAL VACCINE AGE 65+ (1 of 2006 2 - PCV13) SEQUENTIAL INFLUENZA VACCINE (#1) 2016 Low-dose CT Lung Cancer Screen 04/24/2018 04/24/2017, 02/22/2017, 01/03/2017, Additional history exists COLONOSCOPY 07/27/2021 07/27/2016, 01/12/2010 as of this encounter Implants Implanted Type Area Customs Entry Clerk Device Expiration Model / Identifier Date Serial / Lot Port Implanted Mri Isp W/8fr Cath Powerport - [id number] Catheter - Right: BARD PERIP 12/26/2017 [id number] / Implanted: Qty: 1 on 12/04/2016 by Kota Vences MD Implant Subclavian / [id number] Cath 90cm Peritoneal Open End W/Wall Slits - [id number] Catheter - N/A: Abdomen MEDTRO SHAGGY [id number] / Implanted: Qty: 1 on 01/24/2017 by Inder Guillen MD Implant / Sealant 10ml Floseal Matrix Hemostatic W/Ndl-Free Adapter - [id number] N/A: Abdomen TOBAR BIO 03/20/2018 [id number] / Implanted: Qty: 2 on 01/24/2017 by Inder Guillen MD / [id number] as of this encounter Visit Diagnoses Diagnosis Malignant neoplasm of head of pancreas (HCC) - Primary Malignant neoplasm of head of pancreas Encounter for antineoplastic chemotherapy Administered Medications Inactive Administered Medications - up to 3 most recent administrations Medication Order MAR Action Action Date Dose Rate Site fluorouracil (ADRUCIL) injection 50 mg Given 04/30/2017 14:45 EST 50 mg 50 mg, Intravenous, Once, 04/30/17 at 1515, For 1 dose, IV over 1-2 min. Observe for 1 hr following infusion. Chemotherapy competent RN only to administer. Hazardous medication. Use safe handling precautions. heparin, porcine (PF) injection 500 Units Given 04/30/2017 15:46 EST 500 Units 500 Units, Intravenous, As needed, For port needle removal and monthly., Starting 04/30/17 at 1430, For ports, flush with 10 mL 0.9% NaCl IV and 5 mL Heparin (100 units/mL) prior to needle removal and every month when not in use. sodium chloride (PF) (NS) flush 10 mL Given 04/30/2017 14:40 EST 10 mL 10 mL, Intravenous, As needed, line care, Starting 04/30/17 at 1430, For Central Lines. Flush before and after medication administration. sodium chloride (PF) (NS) flush 20 mL Given 04/30/2017 15:46 EST 20 mL 20 mL, Intravenous, As needed, line care, Starting 04/30/17 at 1430, For Central Lines. Flush after TPN, blood products, and blood draws. sodium chloride 0.9% (NS) New Bag 04/30/2017 14:42 EST 25 mL/hr 25 mL/hr 25 mL/hr, Intravenous, Continuous, Starting 04/30/17 at 1530 Rate/Dose Verify 04/30/2017 14:43 EST 25 mL/hr 25 mL/hr in this encounter Insurance Payer Benefit Plan / Group Subscriber ID Type Phone Address HUMANA MANAGED MEDICARE HUMANA [facility] GOLD PLUS O xxxxxxxxx [employer]/JESSICA 80% JESSICA xxxxxxxxx Home: [place] [phone] [address] as of this encounter
--- OUTSIDE RECORDS SUMMARY | 2018-05-19 09:05 | XMS RPT_ITS | Summary of Care ---
:1940 Author Organization [facility] Address [address] [phone] Phone Care Team Providers Name Role Phone Jus Allison MD Primary Care Provider Sherif Valles MD Unavailable Varsha Pineda CNP Unavailable Fran Burris MD Unavailable Inder Guillen MD Unavailable Virginia Lawrence RN Patient Navigator Unavailable Estefany Gaxiola RN Unavailable Unavailable Reason for Visit Reason Comments Pancreatic Cancer Encounter Details Date Type Department Care Team Description 03/08/2017 Office Visit [facility] Sherif Valles MD Malignant neoplasm of head of pancreas (HCC) (Primary Dx); Center Oncology [address] [facility] Chemotherapy follow-up examination; Clinic Anand [address] Encounter for antineoplastic chemotherapy; 801 [place] [address] Diarrhea [place] [address] [phone] Allergies Active Allergy Reactions Severity Noted Date [...] 01/11/2012 Active (DULERA) 200-5 2 (two) times mcg/actuation HFAA a day. oxygen Inhale 2.5 Active L/min nightly. omeprazole (PRILOSEC) Take 1 (one) 30 capsule 11 08/18/2016 08/18/2017 Active 40 MG capsule (40 mg capsuleIndications: total) by Generalized abdominal mouth daily. pain diphenhydrAMINE Take 25 mg by Active (BENADRYL) 25 mg mouth every 6 capsule (six) hours as needed for itching. oxyCODONE (ROXICODONE) Take 1 (one) 90 tablet 0 02/05/2017 Active 5 MG immediate release tablet to 2 tablet (two) tablets (5-10 mg total) by mouth every 4 (four) hours as needed. pancrelipase, Take 1 (one) 90 capsule 11 03/02/2017 03/02/2018 Active Hfi-Fqur-Gorm, (CREON) capsule 12,000-38,000 -60,000 (12,000 units unit CpDR capsule of lipase total) by mouth 3 (three) times a day with meals. sulfamethoxazole-trimet Take 1 (one) 20 tablet 0 03/05/2017 03/15/2017 Active hoprim (BACTRIM tablet by EVERARDO,WILMA MCGEE) 800-160 mouth 2 (two) mg per times a day tabletIndications: for 10 days. Diverticulitis of large intestine without perforation or abscess without bleeding metroNIDAZOLE (FLAGYL) Take 1 (one) 30 tablet 0 03/05/2017 03/05/2018 Active 500 MG tablet (500 mg tabletIndications: total) by Diverticulitis of large mouth 3 intestine without (three) times perforation or abscess a day with without bleeding meals. as of this encounter Active Problems [...] Vital Sign Reading Time Taken Blood Pressure 132/71 03/08/2017 10:44 AM EST Pulse 86 03/08/2017 10:44 AM EST Temperature 37 ??C (98.6 ??F) 03/08/2017 10:44 AM EST Respiratory Rate - - Oxygen Saturation 97% 03/08/2017 10:44 AM EST Inhaled Oxygen Concentration - - Weight 68.2 kg (150 lb 6.4 oz) 03/08/2017 10:44 AM EST Height - - Body Mass Index 22.87 03/08/2017 10:44 AM EST in this encounter Progress Notes Sherif Valles MD - 03/08/2017 10:47 AM ESTFormatting of this note may be different from the original. [facility] [address] [place] [phone] Hematology and Oncology Progress Note Patient Name: Elbert Canales MR #: [id number] : @ [facility] #: [id number] Date of Service: 03/08/17 Clinician: Sherif Valles MD Diagnosis: Pancreatic cancer, stage IB (T2N0M0), head and uncinate process, 2.1 cm, Dx-10/31/2016. Treatment: Neoadjuvant chemotherapy with Gemzar and Abraxane (d1,8,[id number]) started 11/16/16. Chief Complaint: Follow up, pancreatic cancer, please see below; History of Presenting Illness: Mr [...] Colonic diverticulosis without evidence of diverticulitis. 7. Uzsu-xa-mmmpsipx constipation. 8. Moderate prostatomegaly. MRI Abdomen on [...] on 10/31/2016, by Dr. Partha Muñoz at [facility] which showed a mass in thepancreatic head [...] 19-9 at 345. He was admitted at [facility] on 12/09/2016, with 1 day of increased [...] discharged yesterday. He was again discharged from [facility] on 12/18/2016. He was admitted on 12/15 [...] future. Stable appearance of left thyroid nodule. He was having diarrhea and Creon was prescribed, but he could not afford it and we are looking into other options for prescription and support. Today he is here for followup evaluation. He continues to have about 7-8 bowel movements in the last 24 hours. He is taking Imodium and so far not much help. He is not able to get the Creon today. More likely he will get it from [employer]. He denies any fever, abdominal pain, nausea, vomiting. He is not taking any stool softener or laxative. He lost about 17 pounds since surgery. 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 He was prescribed Creon but so far, unable to get it due to high cost. He will get the drug today from [employer], and he will start it today. Stool workup is negative for infection including C diff. I did review the lab findings, future options for adjuvant treatment including chemoradiation Were reviewed (I also reviewed the case with Dr. Rivera), and consensus was that treatment with 5-FU could be tried before radiation and during radiation and post radiation based on the RTOG trial 97-04, data published in [facility] on May 01, 2007. According to this, chemotherapy prior to chemoradiation with continuous 5-FU 250 mg per sq m per day for 3 weeks then between 1-2 weeks after completion of chemotherapy, chemoradiation was initiated with 50.4 Gy of radiation with continuous infusion of 250 mg persq m 5-FU daily throughout the radiation therapy, and another phase of chemotherapy was initiated 3-5 weeks after completion of chemoradiation therapy for 3 months. Currently his main problem continues to be the diarrhea, and that needs to be controlled first before considering more chemotherapy as this can aggravate his situation with more GI toxicity. I did review some of the side effects of 5-FU continuous infusion. He was provided with the information, and we will re- evaluate him in about 2 weeks with a repeat CBC, CMP, and CA 19-9 level. He is not ready to be considered for starting chemotherapy at this time. Our staff is assisting in getting the Creon assistance. I have advised him to continue Imodium as needed for diarrhea. Also encouraged him to increase the fluid and oral intake. I have also advised him to use the leg stockings and elevate the leg for edema. I advised him to defer Lasix in view of diarrhea. He voiced understanding with the above discussion. [...] Gastro: soft, No masses. Incisions well healed. Extremity: no clubbing, no cyanosis. RLE edema, erythema+ Skin: RLE erythema Neuro: alert, oriented, no focal deficits, speech normal. Psych: Pt has a normal mood and affect. Vital Signs: BP 132/71 (BP Location: Right arm) Pulse 86 Temp 98.6 ??F (37 ??C) (Temporal) Wt 68.2 kg (150 lb 6.4 oz) SpO2 97% BMI 22.87 kg/m?? Last Height and Weight with BMI: 68.2 kg (150 lb 6.4 oz) Body mass index is 22.87 kg/m??. PMH/PSH/FH/SH: Past Medical History: Diagnosis Date ??? Arthritis ??? BPH (benign prostatic hyperplasia) ??? Cancer (HCC) skin cancer ??? Cataract ??? Chemotherapy adverse reaction 12/01/2016 has had 2 treatments-- getting port now. Had adverse reaction to zofran after first treatment ??? Chronic diarrhea current problem (07/21/16), stool specimen positive [facility] blood ([facility] per pt ??? Colon polyps 2010 [...] Procedure: COLONOSCOPY; Surgeon: Kota Vences MD; Location: [facility] Endo; Service: ??? INSERTION SUBCUTANEOUS PORT N/A 12/04/2016 Procedure: PORT PLACEMENT ; Surgeon: Kota Vences MD; Location: [facility] Main OR; Service: ??? PROSTATE BIOPSY ??? SINUS SURGERY 2003 ??? WHIPPLE PROCEDURE N/A 01/24/2017 Procedure: WHIPPLE PROCEDURE; Surgeon: Inder Guillen MD; Location: [facility] Main OR; Service: Family History Problem Relation [...] (two) times a day. 01/11/12 Historical ProviderMD OCEAN NASAL 0.65 % nasal spray Instill 2 sprays into each nostril as needed . 09/25/15 Historical ProviderMD omeprazole (PRILOSEC) 40 MG capsule Take 1 (one) capsule (40 mg total) by mouth daily. 08/18/16 08/18/17 Jus Allison MD oxygen Inhale 2.5 L/min nightly. Historical Provider, pancrelipase, Yec-Higv-Wred, (CREON) 12,000-38,000 -60,000 unit CpDR capsule Take 1 (one) capsule (12,000 units of lipase total) by mouth 3 (three) times a day with meals. 08/07/16 08/07/17 Jus Allison MD LABS: Pertinent latest labs reviewed in EMR and discussed with patient. WBC Date Value Ref Range Status 02/22/2017 6.34 4.50 - 11.00 K/mcL Final 07/07/2014 5.35 4.50 - 11.00 K/MCL RBC Date Value Ref Range Status 02/22/2017 3.72 (L) 4.50 - 5.90 M/mcL Final 07/07/2014 4.73 4.50 - 5.90 M/MCL Hemoglobin Date Value Ref Range Status 02/22/2017 11.4 (L) 13.5 - 17.5 g/dL Final 07/07/2014 15.3 13.5 - 17.5 G/DL Hematocrit Date Value Ref Range Status 02/22/2017 34.6 (L) 41.0 - 53.0 % Final 07/07/2014 45.2 41.0 - 53.0 % MCV Date Value Ref Range Status 02/22/2017 93.0 80.0 - 100.0 fL Final 07/07/2014 95.6 80.0 - 100.0 FL MCH Date Value Ref Range Status 02/22/2017 30.6 26.0 - 34.0 pg Final 07/07/2014 32.3 26.0 - 34.0 PG MCHC Date Value Ref Range Status 02/22/2017 32.9 31.0 - 37.0 g/dL Final Platelets Date Value Ref Range Status 02/22/2017 330 150 - 400 K/mcL Final RDW Date Value Ref Range Status 07/07/2014 12.5 11.6 - 14.8 % RDW - CV Date Value Ref Range Status 02/22/2017 13.4 11.6 - 14.8 % Final Sodium Date Value Ref Range Status 02/22/2017 135 135 - 145 mmol/L Final 07/07/2014 136 135 - 145 MMOL/L Potassium Date Value Ref Range Status 02/22/2017 4.1 3.5 - 5.1 mmol/L Final 07/07/2014 4.4 3.5 - 5.1 MMOL/L Chloride Date Value Ref Range Status 02/22/2017 96 (L) 98 - 108 mmol/L Final 07/07/2014 98 98 - 108 MMOL/L Bicarbonate Date Value Ref Range Status 02/22/2017 28 21 - 32 mmol/L Final 07/07/2014 28 21 - 32 MMOL/L Anion Gap Date Value Ref Range Status 02/22/2017 15 10 - 20 mmol/L Final Glucose Date Value Ref Range Status 02/22/2017 128 (H) 65 - 99 mg/dL Final 07/07/2014 94 65 - 99 MG/DL BUN Date Value Ref Range Status 02/22/2017 4 (L) 8 - 25 mg/dL Final 07/07/2014 12 8 - 25 MG/DL Creatinine Date Value Ref Range Status 02/22/2017 0.61 (L) 0.80 - 1.30 mg/dL Final 10/05/2016 0.7 (L) 0.8 - 1.3 mg/dL Final Serum Creatinine Date Value Ref Range Status 01/11/2012 0.9 0.8 - 1.3 MG/DL eGFR Date Value Ref Range Status 02/22/2017 98 >=60 mL/min/1.73 m2 Final GFR, Non Date Value Ref Range Status 01/11/2012 >60 >60 Comment: Test Units:mL/min/1.73m2 This Calculation is for Non Patients BUN/Creatinine Ratio Date Value Ref Range Status 02/22/2017 6.6 (L) 10.0 - 20.0 Final BUN/Creat Ratio Date Value Ref Range Status 07/07/2014 15.0 10.0 - 20.0 Comment: The above 18 analytes were performed by [address] [address] Ordered on: 07/07/2014, EMMA ALLISON Tests Performed at: [facility] (Unless Otherwise Specified) [address] [place] [address], [address] - [facility] #[id number] [facility] - Order ID:[id number] Sample ID:[id number] Total Protein Date Value Ref Range Status 02/22/2017 5.9 (L) 6.0 - 8.0 g/dL Final Albumin Date Value Ref Range Status 02/22/2017 3.3 3.2 - 5.2 g/dL Final Calcium Date Value Ref Range Status 02/22/2017 8.3 (L) 8.4 - 10.2 mg/dL Final 07/07/2014 10.0 8.4 - 10.2 MG/DL Alkaline Phosphatase Date Value Ref Range Status 02/22/2017 86 40 - 150 U/L Final AST Date Value Ref Range Status 02/22/2017 15 0 - 45 U/L Final ALT Date Value Ref Range Status 02/22/2017 10 0 - 40 U/L Final Total Bilirubin Date Value Ref Range Status 02/22/2017 0.3 0.0 - 1.3 mg/dL Final Diagnostic Tests: Pertinent available radiologic studies were reviewed. Follow Up: Return in about 2 weeks (around 03/22/2017) for Office Visit, Labs - See Treatment Plan. Orders Placed This Encounter Procedures ??? CBC and Differential Standing Status: Future Standing Expiration Date: 09/04/2017 ??? Comprehensive Metabolic Panel Standing Status: Future Standing Expiration Date: 09/04/2017 ??? CA 19-9 Standing Status: Future Standing Expiration Date: 03/09/2018 ? Sherif Valles MD [facility] [address], [address] [place] [address] [phone] CC: MD Inder Fink MD in this encounter Plan of Treatment Upcoming Encounters Date Type Specialty Care Team Description 03/21/2017 Nurse Only Infusion Therapy 03/22/2017 Office Visit Oncology Sherif Valles MD [address] [place] [address] [address] [place] [address] [phone] 03/26/2017 Radiation Oncology Radiation Oncology 04/25/2017 Radiation Oncology Radiation Oncology 05/11/2017 Office Visit Primary Care Jus Allison MD [address] [place] [address] Scheduled Tests Name Priority Associated Diagnoses Order Schedule CBC and Differential Routine Malignant neoplasm of head Expected: 03/22/2017 of pancreas (HCC) (Approximate), Diarrhea due to Expires: 09/04/2017 malabsorption Comprehensive Metabolic Routine Malignant neoplasm of head Expected: 03/22/2017 Panel of pancreas (HCC) (Approximate), Diarrhea due to Expires: 09/04/2017 malabsorption CA 19-9 Routine Malignant neoplasm of head Expected: 03/22/2017 of pancreas (HCC) (Approximate), Diarrhea due to Expires: 03/09/2018 malabsorption Health Maintenance Due Date Last Done Comments TETANUS EVERY 10 YR 1940 ZOSTER VACCINE 2001 PNEUMOCOCCAL VACCINE AGE 65+ (1 of 2 2006 - PCV13) SEQUENTIAL INFLUENZA VACCINE (#1) 2016 Low-dose CT Lung Cancer Screen 02/22/2018 02/22/2017, 01/03/2017, 10/16/2016 COLONOSCOPY 07/27/2021 07/27/2016, 01/12/2010 as of this encounter Implants Implanted Type Area Brass Finisher Device Expiration Model / Identifier Date Serial / Lot Port Implanted Mri Isp W/8fr Cath Powerport - [id number] Catheter - Right: BARD PERIP 12/26/2017 [id number] / Implanted: Qty: 1 on 12/04/2016 by Kota Vences MD Implant Subclavian / [id number] Cath 90cm Peritoneal Open End W/Wall Slits - [id number] Catheter - N/A: Abdomen MEDTRO SHAGGY [id number] / Implanted: Qty: 1 on 01/24/2017 by Inder Guillen MD Implant / Sealant 10ml Floseal Matrix Hemostatic W/Ndl-Free Adapter - [id number] N/A: Abdomen TOBAR BIO 03/20/2018 [id number] / Implanted: Qty: 2 on 01/24/2017 by Inder Guillen MD / [id number] as of this encounter Visit Diagnoses Diagnosis Malignant neoplasm of head of pancreas (HCC) - Primary Malignant neoplasm of head of pancreas Chemotherapy follow-up examination Encounter for antineoplastic chemotherapy Diarrhea due to malabsorption Insurance Payer Benefit Plan / Group Subscriber ID Type Phone Address HUMANA MANAGED MEDICARE HUMANA [facility] GOLD PLUS O [id number] [facility]/JESSICA 80% JESSICA [id number] Home: [address] [place], [place] [phone] [place] [address] as of this encounter
--- OUTSIDE RECORDS SUMMARY | 2018-05-19 09:05 | XMS RPT_ITS | Summary of Care ---
:1940 Author Organization [facility] Address [address] [phone] Phone Care Team Providers Name Role Phone Jus Allison MD Primary Care Provider Sherif Valles MD Unavailable Varsha Pineda CNP Unavailable Fran Burris MD Unavailable Inder Guillen MD Unavailable Virginia Lawrence RN Patient Navigator Unavailable Estefany Gaxiola RN Unavailable Unavailable Reason for Visit Reason Comments Hernia Encounter Details Date Type Department Care Team Description 03/30/2017 Office Visit [facility] Surgical Kota Vences [facility] MD Kannan without obstruction [address] [place] [address] (Primary Dx) [id number] Allergies Active Allergy Reactions Severity Noted Date [...] (one) 90 capsule 11 03/02/2017 03/02/2018 Active Nro-Ercx-Oexy, capsule (12,000 (CREON) 12,000-38,000 units of lipase [...] Vital Sign Reading Time Taken Blood Pressure 169/86 03/30/2017 4:30 PM EST Pulse 69 03/30/2017 4:30 PM EST Temperature 36.6 ??C (97.9 ??F) 03/30/2017 4:30 PM EST Respiratory Rate 16 03/30/2017 4:30 PM EST Oxygen Saturation 96% 03/30/2017 4:30 PM EST Inhaled Oxygen Concentration - - Weight 66.2 kg (146 lb) 03/30/2017 4:30 PM EST Height 172.7 cm (5' 8) 03/30/2017 4:30 PM EST Body Mass Index 22.2 03/30/2017 4:30 PM EST in this encounter Progress Notes Kota Vences MD - 04/01/2017 2:06 PM ESTFormatting of this note may be different from the original. [facility] [address] [facility] [address] [facility] [id number] Patient Demographics: Elbert Canales [address] [address] (home) Date of : 1940 Elbert Canales is a 76 y.o. male being seen 04/01/17 for Hernia by Kota Vences MD. Plan: We discussed this hernia. At this point it is very small and reducible. It is somewhat uncomfortable for him. We also discussed the pancreatic cancer and the need for further chemotherapy. At this point, with the rising CA-19-9, I told him that I felt the pancreatic cancer was the top priority. Idid not think we should delay the start of the chemotherapy for this tiny hernia. The hernia certainly could be repaired electively. I would expect him to be able to bounce back fairly quickly. He will call when he is ready to schedule the hernia repair. He can try an abdominal binder to see if itoffers any comfort. Subjective: Chief Complaint Patient presents with ??? Hernia History of Present Illness Button: KAREN Do is a 76-year-old gentleman who was diagnosed with pancreatic cancer last year. He underwent neoadjuvant chemotherapy and then underwent a Whipple procedure at the end of December. He was foundto have a stage IIb pancreatic cancer. His CA-19-9 has gone up from 50-100 in the last couple weeks. He is set to begin chemotherapy. He has noticed a bulge at the umbilicus. It is somewhat uncomfortable. He is not sure whether it goes away completely when he lies down. It is certainly more prominent when he is up and moving around. Past Medical History: Diagnosis Date ??? Arthritis ??? BPH (benign prostatic hyperplasia) ??? Cancer (HCC) skin cancer ??? Cataract ??? Chemotherapy adverse reaction 12/01/2016 has had 2 treatments-- getting port now. Had adverse reaction to zofran after first treatment ??? Chronic diarrhea current problem (07/21/16), stool specimen positive for blood ([facility]) per pt ??? Colon polyps 2010 [...] Procedure: COLONOSCOPY; Surgeon: Kota Vences MD; Location: [facility] Endo; Service: ??? INSERTION SUBCUTANEOUS PORT N/A 12/04/2016 Procedure: PORT PLACEMENT ; Surgeon: Kota Vences MD; Location: [facility] Main OR; Service: ??? PROSTATE BIOPSY ??? SINUS SURGERY 2003 ??? WHIPPLE PROCEDURE N/A 01/24/2017 Procedure: WHIPPLE PROCEDURE; Surgeon: Inder Guillen MD; Location: [facility] Main OR; Service: Family History Problem Relation Age of Onset ??? Hypertension Mother ??? Stroke Mother ??? Thyroid disease Mother ??? Cancer Mother lung ??? Cancer Father Lung, malignant neoplasm of the large intestine ??? Cancer Sister colon cancer History Alcohol Use ??? Yes Comment: rarely 1-2 week History Drug Use No Social History Social History ??? Marital status: [...] History Narrative ??? No narrative on file Medication List Accurate as of 03/30/17 11:59 PM. If you have any questions, ask your nurse or doctor. CONTINUE taking these medications DULERA 200-5 mcg/actuation Hfaa Generic drug: mometasone-formoterol omeprazole 40 MG capsule Commonly known as: PRILOSEC Take 1 (one) capsule (40 mg total) by mouth daily. oxygen pancrelipase (Mpe-Skxz-Puva) 12,000-38,000 -60,000 unit Cpdr capsule Commonly known as: CREON Take 1 (one) capsule (12,000 units of lipase total) by mouth 3 (three) times a day with meals. Last Height and Weight with BMI: 66.2 kg (146 lb) 5' 8 Body mass index is 22.2 kg/m??. Last 3 Weights: Wt Readings from Last 3 Encounters: 03/30/17 66.2 kg (146 lb) 03/22/17 65.4 kg (144 lb 1.6 oz) 03/21/17 65.3 kg (144 lb) Review of Systems Button: Review of Systems Constitutional: Negative for activity change, appetite change, fever and unexpected weight change. HENT: Negative for facial swelling, hearing loss, trouble swallowing and voice change. Respiratory: Negative for chest tightness and shortness of breath. Cardiovascular: Negative for chest pain. Gastrointestinal: Negative for abdominal pain. Genitourinary: Negative for dysuria. Musculoskeletal: Negative for gait problem. Skin: Negative for pallor. Neurological: Negative for facial asymmetry and speech difficulty. Psychiatric/Behavioral: Negative for confusion. Physical Exam Button: Physical Exam Constitutional: He is oriented to person, place, and time. He appears well- developed and well-nourished. No distress. HENT: Head: Normocephalic and atraumatic. Eyes: Conjunctivae are normal. No scleral icterus. Neck: No tracheal deviation present. Pulmonary/Chest: Effort normal. No respiratory distress. Abdominal: Well-healed chevron incision. The abdomen is soft. He does have a small reducible umbilical hernia. The fascial defect measures only approximately 1 cm in diameter. Musculoskeletal: Normal range of motion. Neurological: He is alert and oriented to person, place, and time. Skin: Skin is warm and dry. He is not diaphoretic. Psychiatric: He has a normal mood and affect. Imaging: SNOMED CT(R) 1. Umbilical hernia without obstruction and without gangrene UMBILICAL HERNIA WITHOUT OBSTRUCTION AND WITHOUT GANGRENE No orders of the defined types were placed in this encounter. Follow Up: No Follow-up on file. Procedures for this Visit: Procedures in this encounter Plan of Treatment Upcoming Encounters Date Type Specialty Care Team Description 04/18/2017 Nurse Only Infusion Therapy 04/19/2017 Office Visit Oncology Sherif Valles MD [address] [facility] [address] [place], [place] [id number] 04/25/2017 Radiation Oncology Radiation Oncology 05/11/2017 Office Visit Primary Care Jus Allison MD [address] [place], [place] [id number] Health Maintenance Due Date Last Done Comments TETANUS EVERY 10 YR 1940 ZOSTER VACCINE 2001 PNEUMOCOCCAL VACCINE AGE 65+ (1 of 2 2006 - PCV13) SEQUENTIAL INFLUENZA VACCINE (#1) 2016 Low-dose CT Lung Cancer Screen 02/22/2018 02/22/2017, 01/03/2017, 10/16/2016 COLONOSCOPY 07/27/2021 07/27/2016, 01/12/2010 as of this encounter Implants Implanted Type Area Hand Knitter Device Expiration Model / Identifier Date Serial / Lot Port Implanted Mri Isp W/8fr Cath Powerport - [id number] Catheter - Right: BARD PERIP 12/26/2017 [id number] / Implanted: Qty: 1 on 12/04/2016 by Kota Vences MD Implant Subclavian / [id number] Cath 90cm Peritoneal Open End W/Wall Slits - [id number] Catheter - N/A: Abdomen MEDTRO SHAGGY [id number] / Implanted: Qty: 1 on 01/24/2017 by Inder Guillen MD Implant / Sealant 10ml Floseal Matrix Hemostatic W/Ndl-Free Adapter - [id number] N/A: Abdomen TOBAR BIO 03/20/2018 [id number] / Implanted: Qty: 2 on 01/24/2017 by Inder Guillen MD / [id number] as of this encounter Visit Diagnoses Diagnosis Umbilical hernia without obstruction and without gangrene - Primary Insurance Payer Benefit Plan / Group Subscriber ID Type Phone Address [employer] MANAGED MEDICARE [facility] [id number] Home: [address] [place], [place] [phone] [place] [address] as of this encounter
--- OUTSIDE RECORDS SUMMARY | 2018-05-19 09:05 | XMS RPT_ITS | Summary of Care ---
:1940 Author Organization [facility] Address [address] [place] [address] Phone Care Team Providers Name Role Phone Jus Allison MD Primary Care Provider Sherif Valles MD Unavailable Varsha Pineda CNP Unavailable Fran Burris MD Unavailable Inder Guillen MD Unavailable Virginia Lawrence RN Patient Navigator Unavailable Encounter Details Date Type Department Care Team Description 03/02/2017 Patient Outreach [facility] Joelle Wright & Care Coordination [address] [address] Allergies Active Allergy Reactions Severity Noted [...] 2 (two) times a mcg/actuation HF day. oxygen Inhale 2.5 Active L/min nightly. [...] (one) 90 capsule 11 03/02/2017 03/02/2018 Active Hul-Lmwc-Txgn, (CREON) capsule (12,000 12,000-38,000 -60,000 units of [...] file as of this encounter Progress Notes Joelle Wright, [place] MATE - 03/02/2017 3:40 PM Richard asked to speak with pt about his prescription for Creon. Pt had gone to the pharmacy and was told that his cost would be over $200, which he could not afford. I checked on GoodRx and contacted the financial assistance program associated with the [employer]. They do have assist but it is mainly for those without a prescription plan and for those in the doughnut hole. I called and spoke with Mrs. Canales and she said there is no way they can afford the drug. They could still do the assist application, but the C ARCHITECT said there were options as to what to prescribe; the processing of the application might take a while and would not come with a high likelihood of assist, so I contacted theoncology office to notify them of the above information.in this encounter Plan of Treatment Upcoming Encounters Date Type Specialty Care Team Description 03/06/2017 Office Visit Oncology Sherif Valles MD [address] [facility] [address] [place] [address] [phone] 03/06/2017 Follow-Up Surgical Oncology Inder Guillen MD [address] [facility] [address] [place] [address] [phone] 03/26/2017 Radiation Oncology Radiation Oncology 04/25/2017 Radiation Oncology Radiation Oncology 05/11/2017 Office Visit Primary Care Jus Allison MD [address] [place] [address] [phone] Health Maintenance Due Date Last Done Comments TETANUS EVERY 10 YR 1940 ZOSTER VACCINE 2001 PNEUMOCOCCAL VACCINE AGE 65+ (1 of 2 2006 - PCV13) SEQUENTIAL INFLUENZA VACCINE (#1) 2016 Low-dose CT Lung Cancer Screen 02/22/2018 02/22/2017, 01/03/2017, 10/16/2016 COLONOSCOPY 07/27/2021 07/27/2016, 01/12/2010 as of this encounter Implants Implanted Type Area Airbrush Artist Device Expiration Model / Identifier Date Serial / Lot Port Implanted Mri Isp W/8fr Cath Powerport - [id number] Catheter - Right: BARD PERIP 12/26/2017 [id number] / Implanted: Qty: 1 on 12/04/2016 by Kota Vences MD Implant Subclavian / [id number] Cath 90cm Peritoneal Open End W/Wall Slits - [id number] Catheter - N/A: Abdomen MEDTRO SHAGGY [id number] / Implanted: Qty: 1 on 01/24/2017 by Inder Guillen MD Implant / Sealant 10ml Floseal Matrix Hemostatic W/Ndl-Free Adapter - [id number] N/A: Abdomen TOBAR BIO 03/20/2018 [id number] / Implanted: Qty: 2 on 01/24/2017 by Inder Guillen MD / [id number] as of this encounter Insurance Payer Benefit Plan / Group Subscriber ID Type Phone Address [employer] MANAGED MEDICARE [employer] [facility] [id number] [facility]/JESSICA 80% JESSICA [id number] as of this encounter
--- OUTSIDE RECORDS SUMMARY | 2018-05-19 09:05 | XMS RPT_ITS | Summary of Care ---
:1940 Author Organization [facility] Address [address] [id number] Phone Care Team Providers Name Role Phone Jus Allison MD Primary Care Provider Sherif Valles MD Unavailable Varsha Pineda CNP Unavailable Fran Burris MD Unavailable Inder Guillen MD Unavailable Virginia Lawrence RN Patient Navigator Unavailable Reason for Referral Evaluate and Treat (Routine) Status Reason Specialty Diagnoses / Referred By Referred To Procedures Contact Contact Pending Review Radiation Diagnoses Chemotherapy follow-up examination Malignant neoplasm of head of pancreas (HCC) Sherif Valles MD Oncology [address] [address] MRI/CAT/PET Scan (Routine) Status Reason Specialty Diagnoses / Referred By Contact Referred To Procedures Contact Authorized Radiology Diagnoses Chemotherapy follow-up examination Malignant neoplasm of head of pancreas (HCC) Sherif Valles MD Procedures CT Chest Abdomen Pelvis With Contrast 801 [facility] [address] [place] [address] Reason for Visit Reason Comments Pancreatic Cancer Encounter Details Date Type Department Care Team Description 02/15/2017 Office Visit [facility] Sherif Valles MD Chemotherapy follow-up examination (Primary Dx); Center Oncology 801 [facility] Malignant neoplasm of head of pancreas (HCC) [facility] [address] [place] [address] [place] [address] [phone] Allergies Active Allergy Reactions Severity Noted Date [...] Vital Sign Reading Time Taken Blood Pressure 150/66 02/15/2017 11:12 AM EST Pulse 82 02/15/2017 11:12 AM EST Temperature 36.8 ??C (98.2 ??F) 02/15/2017 11:12 AM EST Respiratory Rate - - Oxygen Saturation - - Inhaled Oxygen Concentration - - Weight 73.3 kg (161 lb 8 oz) 02/15/2017 11:12 AM EST Height - - Body Mass Index 24.56 02/15/2017 11:12 AM EST in this encounter Progress Notes Sherif Valles MD - 02/15/2017 11:03 AM ESTFormatting of this note may be different from the original. [facility] [address] [id number] Hematology and Oncology Progress Note Patient Name: Elbert Canales MR #: [id number] : TYREL@ [facility] #: [id number] Date of Service: 02/15/17 Clinician: Sherif Valles MD Diagnosis: Pancreatic cancer, stage IB (T2N0M0), head and uncinate process, 2.1 cm, Dx-10/31/2016. Treatment: Neoadjuvant chemotherapy with Gemzar and Abraxane (d1,8,17d85fryc) started 11/16/16. Chief Complaint: Follow up, pancreatic cancer, chemo; History of Presenting Illness: Mr Elbert Canales [...] Colonic diverticulosis without evidence of diverticulitis. 7. Xzcd-xd-fysacsmb constipation. 8. Moderate prostatomegaly. MRI Abdomen on [...] on 10/31/2016, by Dr. Partha Muñoz at [place] which showed a mass in thepancreatic head [...] 19-9 at 345. He was admitted at [place] on 12/09/2016, with 1 day of increased [...] discharged yesterday. He was again discharged from [place] on 12/18/2016. He was admitted on 12/15 [...] 01/24/2017. Surgical pathology showed adenocarcinoma, 2.7 cm, 4/ lymph nodes positive, grade 2, with extrapancreatic soft tissue tumor extension, positive margin at radial circumferential margin at the portal vein area, no lymphovascular invasion was present. Perineal invasion was present. Pathology staging was 2b (T3 N1). Postoperatively, he is doing very well. He denies any complaint today. His incisions are well healed and denies any abdominal pain, except near the umbilicus where he has the hernia. He denies any fevers, chills, nausea, vomiting, diarrhea, or constipation. His appetite is good, and he is not having any problem. He still has some leg swelling and infrequently he takes Lasix. Assessment/Plan: Pancreatic cancer (adenocarcinoma), involving pancreatic head [...] and tumor extension at extrapancreatic soft tissue. I reviewed his pathology finding, lab studies, and imaging studies with the patient and his . Iadvised them that he has some high-risk features concerning for recurrent disease. He is not a goodcandidate to consider adjuvant chemotherapy with gemcitabine and capecitabine but chemo with 5FU/LV c ould still be considered. At this time I will plan to refer him to Radiation Oncology, Dr. Rivera,for consideration of adjuvant radiation and also will get a postop CT imaging as well as some labs including CA19-9 level. I will reevaluate him in a couple of weeks after this testing. He voiced understanding with the above discussion. [...] Gastro: soft, No masses. Incisions well healed. Min tenderness+ : no abnormal mass in testicular area, right testis with implant. Extremity: no clubbing, no cyanosis. RLE edema, erythema+ Skin: RLE erythema Neuro: alert, oriented, no focal deficits, speech normal. Psych: Pt has a normal mood and affect. Vital Signs: BP (!) 150/66 (BP Location: Left arm) Pulse 82 Temp 98.2 ??F (36.8 ??C) (Temporal) Wt 73.3 kg (161 lb 8 oz) BMI 24.56 kg/m?? Last Height and Weight with BMI: 73.3 kg (161 lb 8 oz) Body mass index is 24.56 kg/m??. PMH/PSH/FH/SH: Past Medical History: Diagnosis Date ??? Arthritis ??? BPH (benign prostatic hyperplasia) ??? Cancer (HCC) skin cancer ??? Cataract ??? Chemotherapy adverse reaction 12/01/2016 has had 2 treatments-- getting port now. Had adverse reaction to zofran after first treatment ??? Chronic diarrhea current problem (07/21/16), stool specimen positive for blood ([facility]) per pt ??? Colon polyps [...] PLACEMENT ; Surgeon: Kota Vences MD; Location: [facility] Main OR; Service: ??? COLONOSCOPY 2010 benign polyps found ??? COLONOSCOPY N/A 07/27/2016 Procedure: COLONOSCOPY; Surgeon: Kota Vences MD; Location: [facility] Endo; Service: ??? PROSTATE BIOPSY ??? SINUS SURGERY 2003 ??? WHIPPLE PROCEDURE N/A 01/24/2017 Procedure: WHIPPLE PROCEDURE; Surgeon: Inder Guillen MD; Location: [facility] Main OR; Service: Family History [...] Inhale 2.5 L/min nightly. Historical Provider, pancrelipase, Goo-Wesv-Trmu, (CREON) 12,000-38,000 -60,000 unit CpDR capsule Take 1 (one) capsule (12,000 units of lipase total) by mouth 3 (three) times a day with meals. 08/07/16 08/07/17 Jus Allison MD LABS: Pertinent latest labs reviewed in EMR and discussed with patient. WBC Date Value Ref Range Status 02/05/2017 7.11 4.50 - 11.00 K/mcL Final 07/07/2014 5.35 4.50 - 11.00 K/MCL RBC Date Value Ref Range Status 02/05/2017 3.40 (L) 4.50 - 5.90 M/mcL Final 07/07/2014 4.73 4.50 - 5.90 M/MCL Hemoglobin Date Value Ref Range Status 02/05/2017 10.6 (L) 13.5 - 17.5 g/dL Final 07/07/2014 15.3 13.5 - 17.5 G/DL Hematocrit Date Value Ref Range Status 02/05/2017 31.4 (L) 41.0 - 53.0 % Final 07/07/2014 45.2 41.0 - 53.0 % MCV Date Value Ref Range Status 02/05/2017 92.4 80.0 - 100.0 fL Final 07/07/2014 95.6 80.0 - 100.0 FL MCH Date Value Ref Range Status 02/05/2017 31.2 26.0 - 34.0 pg Final 07/07/2014 32.3 26.0 - 34.0 PG MCHC Date Value Ref Range Status 02/05/2017 33.8 31.0 - 37.0 g/dL Final Platelets Date Value Ref Range Status 02/05/2017 329 150 - 400 K/mcL Final RDW Date Value Ref Range Status 07/07/2014 12.5 11.6 - 14.8 % RDW - CV Date Value Ref Range Status 02/05/2017 13.5 11.6 - 14.8 % Final Sodium Date Value Ref Range Status 02/05/2017 129 (L) 135 - 145 mmol/L Final 07/07/2014 136 135 - 145 MMOL/L Potassium Date Value Ref Range Status 02/05/2017 4.2 3.5 - 5.1 mmol/L Final 07/07/2014 4.4 3.5 - 5.1 MMOL/L Chloride Date Value Ref Range Status 02/05/2017 94 (L) 98 - 108 mmol/L Final 07/07/2014 98 98 - 108 MMOL/L Bicarbonate Date Value Ref Range Status 02/05/2017 24 21 - 32 mmol/L Final 07/07/2014 28 21 - 32 MMOL/L Anion Gap Date Value Ref Range Status 02/05/2017 15 10 - 20 mmol/L Final Glucose Date Value Ref Range Status 02/05/2017 115 (H) 65 - 99 mg/dL Final 07/07/2014 94 65 - 99 MG/DL BUN Date Value Ref Range Status 02/05/2017 13 8 - 25 mg/dL Final 07/07/2014 12 8 - 25 MG/DL Creatinine Date Value Ref Range Status 02/05/2017 0.56 (L) 0.80 - 1.30 mg/dL Final 10/05/2016 0.7 (L) 0.8 - 1.3 mg/dL Final Serum Creatinine Date Value Ref Range Status 01/11/2012 0.9 0.8 - 1.3 MG/DL eGFR Date Value Ref Range Status 02/05/2017 101 >=60 mL/min/1.73 m2 Final GFR, Non Date Value Ref Range Status 01/11/2012 >60 >60 Comment: Test Units:mL/min/1.73m2 This Calculation is for Non Patients BUN/Creatinine Ratio Date Value Ref Range Status 02/05/2017 23.2 (H) 10.0 - 20.0 Final BUN/Creat Ratio Date Value Ref Range Status 07/07/2014 15.0 10.0 - 20.0 Comment: The above 18 analytes were performed by [address] [id number] Ordered on: 07/07/2014, EMMA ALLISON Tests Performed at: [facility] (Unless Otherwise Specified) [address] [place] [address], [address] - [facility] #[id number] M[facility]OS - Order ID:[id number] Sample ID:[id number] Total Protein Date Value Ref Range Status 02/05/2017 5.9 (L) 6.0 - 8.0 g/dL Final Albumin Date Value Ref Range Status 02/05/2017 3.0 (L) 3.2 - 5.2 g/dL Final Calcium Date Value Ref Range Status 02/05/2017 8.7 8.4 - 10.2 mg/dL Final 07/07/2014 10.0 8.4 - 10.2 MG/DL Alkaline Phosphatase Date Value Ref Range Status 02/05/2017 75 40 - 150 U/L Final AST Date Value Ref Range Status 02/05/2017 21 0 - 45 U/L Final ALT Date Value Ref Range Status 02/05/2017 29 0 - 40 U/L Final Total Bilirubin Date Value Ref Range Status 02/05/2017 0.4 0.0 - 1.3 mg/dL Final Diagnostic Tests: Pertinent available radiologic studies were reviewed. Follow Up: Return in about 3 weeks (around 03/07/2017) for Office Visit, Imaging - See orders, Labs - See Treatment Plan, Referral. Orders Placed This Encounter Procedures ??? CT Chest Abdomen Pelvis With Contrast Standing Status: Future Standing Expiration Date: 03/20/2017 Scheduling Instructions: If patient is allergic to contrast, appointment must be scheduled in a hospital CT dept.: 's, [place], [place], [place], [place], [place], [place], [place] or [facility], Sunday thru Sunday only. If the patient has a contrast allergy, please contact [facility] Radiology Chart compilers for assistance with ordering Radiology Premedication Protocol. Schedule at the main hospital if patient is also having a procedure done at the hospital (ex: NucMed Scan). CT Abdomen and or Pelvis with MRI - schedule CT at least 2 hours before or 2 hours after MRI. NEW: If patient age under 18 years, do not schedule at [facility] Imaging Doctors - call the department at [phone] when scheduling any child from the age of 6 months to 5 years to see if medication is necessary [place] - Call CT [phone] before scheduling a CTA and a CT on the same day - there is a chance these two tests cannot be performed on the same day. Do not schedule any CT with contrast after 5pm. The last available with contrast CT is 4:30pm. [facility] - age limit 16 and over [place] - when the caller is requesting [place] for their CT please scan [facility] as well. IfBing appointment is sooner notify caller and ask if they would like that slot. Order Specific Question: Reason for Exam: Answer: Pancreatic cancer, s/p chemo, whipples procedure on 01/24, for follow up. Order Specific Question: Does the patient require moderate sedation? Answer: No Order Specific Question: Does this exam require IV hydration? Answer: No ??? CBC and Differential Standing Status: Future Standing Expiration Date: 03/20/2017 ??? Comprehensive Metabolic Panel Standing Status: Future Standing Expiration Date: 03/20/2017 ??? CA 19-9 Standing Status: Future Standing Expiration Date: 03/20/2017 ??? Ambulatory referral to Radiation Oncology Standing Status: Future Standing Expiration Date: 05/16/2017 Referral Priority: Routine Referral Type: Evaluate and Treat Number of Visits Requested: 1 ? Sherif Valles MD [facility] [address], [address] [place] [address] [phone] [phone] CC: MD Inder Fink MD in this encounter Plan of Treatment Upcoming Encounters Date Type Specialty Care Team Description 02/22/2017 Nurse Only Infusion Therapy Sherif Valles MD [address] [place] [id number] 02/22/2017 Appointment Radiology Sherif Valles MD [address] [place] [address] [phone] 02/22/2017 Radiation Oncology Radiation Oncology Cole Rivera MD [address] [address] [phone] 02/22/2017 Radiation Oncology Radiation Oncology 03/06/2017 Office Visit Oncology Sherif Valles MD [address] [address] [phone] 03/06/2017 Follow-Up Surgical Oncology Inder Guillen MD [address] [address] [phone] 03/26/2017 Radiation Oncology Radiation Oncology 04/25/2017 Radiation Oncology Radiation Oncology 05/11/2017 Office Visit Primary Care Jus Allison MD [address] [place] [address] [phone] Scheduled Tests Name Priority Associated Diagnoses Order Schedule CBC and Differential Routine Chemotherapy follow-up Expected: 02/21/2017 examination (Approximate), Malignant neoplasm of head Expires: 03/20/2017 of pancreas (HCC) Comprehensive Metabolic Routine Chemotherapy follow-up Expected: 02/21/2017 Panel examination (Approximate), Malignant neoplasm of head Expires: 03/20/2017 of pancreas (HCC) CA 19-9 Routine Chemotherapy follow-up Expected: 02/21/2017 examination (Approximate), Malignant neoplasm of head Expires: 03/20/2017 of pancreas (HCC) CT Chest Abdomen Pelvis With Routine Chemotherapy follow-up Expected: 02/21/2017 Contrast examination (Approximate), Malignant neoplasm of head Expires: 03/20/2017 of pancreas (HCC) Scheduled Referrals Name Priority Associated Diagnoses Order Schedule Ambulatory referral to Routine Chemotherapy follow-up Expected: 02/15/2017, Radiation Oncology examination Expires: 05/16/2017 Malignant neoplasm of head of pancreas (HCC) Health Maintenance Due Date Last Done Comments TETANUS EVERY 10 YR 1940 ZOSTER VACCINE 2001 PNEUMOCOCCAL VACCINE AGE 65+ (1 of 2 - 2006 PCV13) SEQUENTIAL INFLUENZA VACCINE (#1) 2016 Low-dose CT Lung Cancer Screen 01/03/2018 01/03/2017, 10/16/2016 COLONOSCOPY 07/27/2021 07/27/2016, 01/12/2010 as of this encounter Implants Implanted Type Area Shift Production Associate Device Expiration Model / Identifier Date Serial / Lot Port Implanted Mri Isp W/8fr Cath Powerport - [id number] Catheter - Right: BARD PERIP 12/26/2017 [id number] / Implanted: Qty: 1 on 12/04/2016 by Kota Vences MD Implant Subclavian / [id number] Cath 90cm Peritoneal Open End W/Wall Slits - [id number] Catheter - N/A: Abdomen MEDTRO SHAGGY [id number] / Implanted: Qty: 1 on 01/24/2017 by Inder Guillen MD Implant / Sealant 10ml Floseal Matrix Hemostatic W/Ndl-Free Adapter - [id number] N/A: Abdomen TOBAR BIO 03/20/2018 [id number] / Implanted: Qty: 2 on 01/24/2017 by Inder Guillen MD / [id number] as of this encounter Visit Diagnoses Diagnosis Chemotherapy follow-up examination - Primary Malignant neoplasm of head of pancreas (HCC) Malignant neoplasm of head of pancreas Insurance Payer Benefit Plan / Group Subscriber ID Type Phone Address [employer] MANAGED MEDICARE [employer] [place] [facility] [facility] [id number] [facility]/JESSICA 80% JESSICA [id number] [phone] [place] [address] as of this encounter
--- OUTSIDE RECORDS SUMMARY | 2018-05-19 09:05 | XMS RPT_ITS | Summary of Care ---
:1940 Author Organization [facility] Address [address] [place] [address] Phone Care Team Providers Name Role Phone Jus Allison MD Primary Care Provider Sherif Valles MD Unavailable Varsha Pineda CNP Unavailable Fran Burris MD Unavailable Inder Guillen MD Unavailable Virginia Lawrence RN Patient Navigator Unavailable Estefany Gaxiola RN Unavailable Unavailable Encounter Details Date Type Department Care Team Description 03/08/2017 Care Coordination Patient Navigator MERCY Gaxiola RN Allergies Active Allergy Reactions Severity Noted Date [...] (one) 90 capsule 11 03/02/2017 03/02/2018 Active Swn-Ewgg-Gpmz, (CREON) capsule 12,000-38,000 -60,000 (12,000 units unit CpDR capsule of lipase total) by mouth 3 (three) times a day with meals. sulfamethoxazole-trimet Take 1 (one) 20 tablet 0 03/05/2017 03/15/2017 Active hoprim (BACTRIM tablet by EVERARDO,SEPTRA MCGEE) 800-160 mouth 2 (two) mg per [...] file as of this encounter Progress Notes Estefany Gaxiola RN - 03/08/2017 12:04 PM ESTMet with the patient today in the onc clinic. He is here with his . I talked to them about the is sues with their Creon copay. Apparently their insurance Plan has a 195.00 copay at the beginning ofthe year plus the residual amount for the meds for both of them. So this months prescription payments will be over 600.00. She has a plan to borrow money but will have to pay it back. They are on his residential plus social security. I talked with them about the copay assistance for Abby and provided her with an application. I asked her if they were interested in applying and she was not sure. I shared with them the 2017 povery level and that depending on income and expenses they may be eligible. I offered to assist them with the forms and sending the kurtis in. They have my contact information and will call if they want to proceed. Otherwise they will return to the clinic in 2 weeks to consider starting therapy. 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 I have maybe 2 years so we better start planning our stuff. When I clarified with him he is referring to planning funerals and estates. I encouraged him toconsider also planning something he would LIKE to do. They cancelled a trip in the fall when he was first diagnosed and now regrets doing that because he feels that they now won't be able to do that. Distress screening was completed. His score is 9-10 but it is primarily financial and concerns about treatment reactions. He has HCAP @ 80% and we will f/u about the Creon assistance. If I do not hear from them I will check in at his next office visit.in this encounter Plan of Treatment Upcoming Encounters Date Type Specialty Care Team Description 03/21/2017 Nurse Only Infusion Therapy 03/22/2017 Office Visit Oncology Sherif Valles MD 801 [facility] [address] [place] [address] [phone] 03/26/2017 Radiation Oncology Radiation Oncology 04/25/2017 Radiation Oncology Radiation Oncology 05/11/2017 Office Visit Primary Care Jus Allison MD [address] [place] [address] [phone] Health Maintenance Due Date Last Done Comments TETANUS EVERY 10 YR 1940 ZOSTER VACCINE 2001 PNEUMOCOCCAL VACCINE AGE 65+ (1 of 2 2006 - PCV13) SEQUENTIAL INFLUENZA VACCINE (#1) 2016 Low-dose CT Lung Cancer Screen 02/22/2018 02/22/2017, 01/03/2017, 10/16/2016 COLONOSCOPY 07/27/2021 07/27/2016, 01/12/2010 as of this encounter Implants Implanted Type Area Lighting Designer Device Expiration Model / Identifier Date Serial / Lot Port Implanted Mri Isp W/8fr Cath Powerport - [id number] Catheter - Right: BARD PERIP 12/26/2017 [id number] / Implanted: Qty: 1 on 12/04/2016 by Kota Vences MD Implant Subclavian / [id number] Cath 90cm Peritoneal Open End W/Wall Slits - [id number] Catheter - N/A: Abdomen MEDTRO SHAGGY [id number] / Implanted: Qty: 1 on 01/24/2017 by Inder Guillen MD Implant / Sealant 10ml Floseal Matrix Hemostatic W/Ndl-Free Adapter - [id number] N/A: Abdomen TOBAR BIO 03/20/2018 [id number] / Implanted: Qty: 2 on 01/24/2017 by Inder Guillen MD / [id number] as of this encounter Insurance Payer Benefit Plan / Group Subscriber ID Type Phone Address [employer] MANAGED MEDICARE HUMANA MCR GOLD PL[place] [facility] [place] [id number] HCAP/JESSICA 80% EJSSICA [id number] as of this encounter
--- OUTSIDE RECORDS SUMMARY | 2018-05-19 09:05 | XMS RPT_ITS | Summary of Care ---
:1940 Author Organization [facility] Address [address] [id number] Phone Care Team Providers Name Role Phone Jus Allison MD Primary Care Provider Sherif Valles MD Unavailable Varsha Pineda CNP Unavailable Fran Burris MD Unavailable Inder Guillen MD Unavailable Virginia Lawrence RN Patient Navigator Unavailable Reason for Referral MRI/CAT/PET Scan (Routine) Status Reason Specialty Diagnoses / Referred By Contact Referred To Contact Procedures Closed Radiology Diagnoses Chemotherapy follow-up examination Malignant neoplasm of head of pancreas (HCC) Sherif Valles MD Procedures CT Chest Abdomen Pelvis With Contrast [address] [address] MRI/CAT/PET Scan (Routine) Status Reason Specialty Diagnoses / Referred By Contact Referred To Contact Procedures Closed Radiology Diagnoses Chemotherapy follow-up examination Malignant neoplasm of head of pancreas (HCC) Sherif Valles MD Procedures CT Chest Abdomen Pelvis With Contrast 801 [facility] [address] [place] [id number] Reason for Visit MRI/CAT/PET Scan (Routine) Status Reason Specialty Diagnoses / Referred By Contact Referred To Contact Procedures Closed Radiology Diagnoses Chemotherapy follow-up examination Malignant neoplasm of head of pancreas (HCC) Sherif Valles MD Procedures CT Chest Abdomen Pelvis With Contrast [address] [address] Encounter Details Date Type Department Care Team Description 02/22/2017 Hospital Encounter [facility] Sherif Valles MD Chemotherapy follow-up examination; Center CT Scan 801 [facility] Malignant neoplasm of head of pancreas (HCC) [address] [facility] [address] [place] [address] [place] [address] [phone] Allergies Active Allergy Reactions Severity Noted Date [...] Office Visit Oncology Sherif Valles MD 801 [facility] [address] [place] [address] 03/06/2017 Follow-Up Surgical Oncology Inder Guillen MD [address] [facility] [address] [place] [address] [phone] 03/26/2017 Radiation Oncology Radiation Oncology 04/25/2017 Radiation Oncology Radiation Oncology 05/11/2017 Office Visit Primary Care Jus Allison MD [address] [place] [address] [phone] Health Maintenance Due Date Last Done Comments TETANUS EVERY 10 YR 1940 ZOSTER VACCINE 2001 PNEUMOCOCCAL VACCINE AGE 65+ (1 of 2 - 2006 PCV13) SEQUENTIAL INFLUENZA VACCINE (#1) 2016 Low-dose CT Lung Cancer Screen 01/03/2018 01/03/2017, 10/16/2016 COLONOSCOPY 07/27/2021 07/27/2016, 01/12/2010 as of this encounter Implants Implanted Type Area [employer] Device Expiration Model / Identifier Date Serial / Lot Port Implanted Mri Isp W/8fr Cath Powerport - [id number] Catheter - Right: BARD PERIP 12/26/2017 [id number] / Implanted: Qty: 1 on 12/04/2016 by Kota Vences MD Implant Subclavian / [id number] Cath 90cm Peritoneal Open End W/Wall Slits - [id number] Catheter - N/A: Abdomen MEDTRO [id number] / Implanted: Qty: 1 on 01/24/2017 by Inder Guillen MD Implant / Sealant 10ml Floseal Matrix Hemostatic W/Ndl-Free Adapter - [id number] N/A: Abdomen TOBAR BIO 03/20/2018 [id number] / Implanted: Qty: 2 on 01/24/2017 by Inder Guillen MD / [id number] as of this encounter Results CT Chest Abdomen Pelvis With Contrast (02/22/2017 11:58 AM) Specimen Performing Laboratory [facility] Impressions Postoperative changes from interval Whipple procedure.?A prior pancreatic mass has been resected without definite recurrent malignancy. Prior lymphadenopathy near the pancreas is not visualized and presumably resected. No evidence of metastatic burden in the thorax.?Extensive emphysematous changes are seen of upper lobe predominance. Equivocal vague hypoattenuating lesion in segment 8, of the liver.?This could relate to artifact from adjacent hyperdense blood vessel.?Close attention advised for future examination.?Tiny hepatic cysts are relatively stable. Stable appearance of left thyroid nodule.?This could be further evaluated on a non-urgent basis with thyroid ultrasound. Other chronic/stable ancillary findings are detailed above. [facility] Workstation ID:? [id number] Narrative EXAMINATION: CT CHEST ABDOMEN PELVIS WITH CONTRAST HISTORY: ORDERING SYSTEM PROVIDED HISTORY:?Pancreatic cancer, s/p chemo, whipples procedure on 01/24, for follow up., TECHNOLOGIST PROVIDED HISTORY: Reason for exam: f/u pancreatic ca Illness/Other Encounter Type: Subsequent/Follow-up Additional signs and symptoms: whipple 01/23/17 ORDERING SYSTEM PROVIDED DIAGNOSIS CODES: Z09 Chemotherapy follow-up examination C25.0 Malignant neoplasm of head of pancreas (HCC) COMPARISON: 01/03/2017. TECHNIQUE: CT examination of the chest, abdomen, and pelvis?following the administration of intravenous contrast.?Coronal and sagittal reformations were performed. Dose reduction techniques were achieved by using automated exposure control and/or adjustment of mA and/or kV according to patient size and/or use of iterative reconstruction technique. CONTRAST: IOPAMIDOL 76 % ORAL?-?18 mL, IOPAMIDOL 76 % INTRAVENOUS SOLUTION?-?100 mL, FINDINGS: The pulmonary parenchyma is stable in volume with no progressive mass, consolidation, atelectasis, or nodularity. The trachea and central segmental branches of the airways are clear.?A nodule is again identified in the left thyroid lobe measuring least 16 mm, not dramatically changed. Extensive emphysematous and bullous changes are seen of upper lobe predominance.?Some minimal subpleural scar is seen in the right apex posteriorly.?No progressive mass or consolidation.?Central airways are relatively clear and stable. There is a right-sided MediPort terminating within the upper 3rd of the vena cava.?Heart size is stable.?Extensive coronary artery calcifications are present.?Central pulmonary vessels are clear, though suboptimally opacified.?Aortic arch is nonacute.?Atherosclerotic calcifications are present.?No evidence of progressive thoracic lymphadenopathy. Within the abdomen, late portal venous timing is observed.?Within the abdomen, the liver, gallbladder region and biliary tree, portal and hepatic venous system, spleen, pancreas and adrenal glands are stable in attenuation and morphology. No definite liver mass.?There is a vague hypoattenuating lesion seen, segment 8, image 79, series 2, measuring up to 8 mm, although this could relate to artifact from an adjacent vessel.?Tiny hypodensity anterior dome of the liver, image 72, series 2, and inferior segment 6, image 99, series 2, relatively stable.?Portal and hepatic venous segments are patent.?Postoperative change from cholecystectomy and hepaticojejunostomy.?The spleen is nonacute in appearance.?Resection of the pancreatic head compatible with known Whipple.?Distal/upstream pancreatic remnant is severely atrophic.?The pancreatic vasculature is also stable in appearance.?Adrenal glands are normal in appearance. Midline vessels are normal in caliber without evidence of retroperitoneal collection or lymphadenopathy.?Extensive atherosclerotic burden is present.?No progressive lymphadenopathy. There is symmetric renal enhancement without evidence of obvious mass, stone, or hydronephrosis. Prominent collaterals are seen within the upper abdomen.?Postoperative change is seen in the midline and transverse upper abdomen.?The GI tract is nondilated without mass or obvious inflammation.?Probable appendectomy.?Postoperative changes from gastrojejunal anastomosis which appears grossly normal.?There is colonic diverticulosis in the descending and sigmoid segments.?Within the pelvis, urinary bladder, prostate, seminal vesicles, pelvic lymph nodes, and anorectum are stable.?There are rounded contours of the prostate which may suggest BPH.?The osseous structures are normal for age without suspicious lytic or sclerotic lesion. Procedure Note Interface, Rad In Leroy Speech[facility] - 02/22/2017 4:31 PM EST EXAMINATION: CT CHEST ABDOMEN PELVIS WITH CONTRAST HISTORY: ORDERING SYSTEM PROVIDED HISTORY: Pancreatic cancer, s/p chemo, whipples procedure on 01/24, for follow up., TECHNOLOGIST PROVIDED HISTORY: Reason for exam: f/u pancreatic ca Illness/Other Encounter Type: Subsequent/Follow-up Additional signs and symptoms: whipple 01/23/17 ORDERING SYSTEM PROVIDED DIAGNOSIS CODES: Z09 Chemotherapy follow-up examination C25.0 Malignant neoplasm of head of pancreas (HCC) COMPARISON: 01/03/2017. TECHNIQUE: CT examination of the chest, abdomen, and pelvis following the administration of intravenous contrast. Coronal and sagittal reformations were performed. Dose reduction techniques were achieved by using automated exposure control and/or adjustment of mA and/or kV according to patient size and/or use of iterative reconstruction technique. CONTRAST: IOPAMIDOL 76 % ORAL - 18 mL, IOPAMIDOL 76 % INTRAVENOUS SOLUTION - 100 mL, FINDINGS: The pulmonary parenchyma is stable in volume with no progressive mass, consolidation, atelectasis, or nodularity. The trachea and central segmental branches of the airways are clear. A nodule is again identified in the left thyroid lobe measuring least 16 mm, not dramatically changed. Extensive emphysematous and bullous changes are seen of upper lobe predominance. Some minimal subpleural scar is seen in the right apex posteriorly. No progressive mass or consolidation. Central airways are relatively clear and stable. There is a right-sided MediPort terminating within the upper 3rd of the vena cava. Heart size is stable. Extensive coronary artery calcifications are present. Central pulmonary vessels are clear, though suboptimally opacified. Aortic arch is nonacute. Atherosclerotic calcifications are present. No evidence of progressive thoracic lymphadenopathy. Within the abdomen, late portal venous timing is observed. Within the abdomen, the liver, gallbladder region and biliary tree, portal and hepatic venous system, spleen, pancreas and adrenal glands are stable in attenuation and morphology. No definite liver mass. There is a vague hypoattenuating lesion seen, segment 8, image 79, series 2, measuring up to 8 mm, although this could relate to artifact from an adjacent vessel. Tiny hypodensity anterior dome of the liver, image 72, series 2, and inferior segment 6, image 99, series 2, relatively stable. Portal and hepatic venous segments are patent. Postoperative change from cholecystectomy and hepaticojejunostomy. The spleen is nonacute in appearance. Resection of the pancreatic head compatible with known Whipple. Distal/upstream pancreatic remnant is severely atrophic. The pancreatic vasculature is also stable in appearance. Adrenal glands are normal in appearance. Midline vessels are normal in caliber without evidence of retroperitoneal collection or lymphadenopathy. Extensive atherosclerotic burden is present. No progressive lymphadenopathy. There is symmetric renal enhancement without evidence of obvious mass, stone, or hydronephrosis. Prominent collaterals are seen within the upper abdomen. Postoperative change is seen in the midline and transverse upper abdomen. The GI tract is nondilated without mass or obvious inflammation. Probable appendectomy. Postoperative changes from gastrojejunal anastomosis which appears grossly normal. There is colonic diverticulosis in the descending and sigmoid segments. Within the pelvis, urinary bladder, prostate, seminal vesicles, pelvic lymph nodes, and anorectum are stable. There are rounded contours of the prostate which may suggest BPH. The osseous structures are normal for age without suspicious lytic or sclerotic lesion. IMPRESSION: Postoperative changes from interval Whipple procedure. A prior pancreatic mass has been resected without definite recurrent malignancy. Prior lymphadenopathy near the pancreas is not visualized and presumably resected. No evidence of metastatic burden in the thorax. Extensive emphysematous changes are seen of upper lobe predominance. Equivocal vague hypoattenuating lesion in segment 8, of the liver. This could relate to artifact from adjacent hyperdense blood vessel. Close attention advised for future examination. Tiny hepatic cysts are relatively stable. Stable appearance of left thyroid nodule. This could be further evaluated on a non-urgent basis with thyroid ultrasound. Other chronic/stable ancillary findings are detailed above. W/[place] Workstation ID: [id number] in this encounter Visit Diagnoses Diagnosis Chemotherapy follow-up examination Malignant neoplasm of head of pancreas (HCC) Malignant neoplasm of head of pancreas Administered Medications Inactive Administered Medications - up to 3 most recent administrations Medication Order MAR Action Action Date Dose Rate Site iopamidol (ISOVUE-370) 76 Contrast Administered 02/22/2017 11:46 EST 100 mL % injection 100 mL 100 mL, Intravenous, Once in imaging, contrast, Starting [facility] 02/22/17 at 1022, For 1 dose iopamidol (ISOVUE-370) 76 % oral Contrast Administered 02/22/2017 10:22 EST 18 mL solution 18 mL 18 mL, Oral, Once in imaging, contrast, Starting [facility] 02/22/17 at 1022, For 1 dose in this encounter Insurance Payer Benefit Plan / Group Subscriber ID Type Phone Address [employer] [facility] [facility] [place] [id number] HCAP/JESSICA 80% JESSICA [id number] Home: [address] [place], [place] [phone] [place] [address] as of this encounter
--- OUTSIDE RECORDS SUMMARY | 2018-05-19 09:05 | XMS RPT_ITS | Summary of Care ---
:1940 Author Organization [facility] Address [address] [phone] Phone Care Team Providers Name Role Phone Jus Allison MD Primary Care Provider Sherif Valles MD Unavailable Varsha Pineda CNP Unavailable Fran Burris MD Unavailable Inder Guillen MD Unavailable Virginia Lawrence RN Patient Navigator Unavailable Estefany Gaxiola RN Unavailable Unavailable Reason for Visit Reason Comments Pancreatic Cancer Encounter Details Date Type Department Care Team Description 03/22/[address] [facility] Sherif Valles MD Malignant neoplasm of head of pancreas (HCC) (Primary Dx); Center Oncology [address] [facility] Chemotherapy follow-up examination Clinic [facility] [address] [place] [address] [place] [address] [phone] Allergies Active Allergy Reactions Severity Noted Date Comments Ciprofloxacin Hives 12/01/2014 Hives in the 80s Gemcitabine 02/09/2017 Penicillin Hives 12/01/2014 Hives in the 80s Tetracycline 12/01/2014 Ondansetron Hcl Hives 11/30/2016 Itching, hives, shortness of breath, sweating as of this encounter Medications Prescription Sig. Disp. Refills Start Date End Date Status mometasone-formoterol Inhale 2 01/11/2012 Active (DULERA) 200-5 puffs 2 (two) mcg/actuation HFAA times a day. oxygen Inhale 2.5 Active L/min nightly. omeprazole (PRILOSEC) Take 1 (one) 30 capsule 11 08/18/2016 Active 40 MG capsule (40 8 capsuleIndications: mg total) by Generalized abdominal mouth daily. pain pancrelipase, Take 1 (one) 90 capsule 11 03/02/2017 Active Efm-Amby-Xjzt, capsule 9 (CREON) 12,000-38,000 (12,000 units -60,000 unit CpDR of lipase capsule total) by mouth 3 (three) times a day with meals. aspirin 81 MG EC Take 1 tablet Discontinued tablet by mouth 8 daily . diphenhydrAMINE Take 25 mg by Discontinued (BENADRYL) 25 mg mouth every 6 8 capsule (six) hours as needed for itching. oxyCODONE Take 1 (one) 90 tablet 0 02/05/2017 Discontinued (ROXICODONE) 5 MG tablet to 2 8 immediate release (two) tablets tablet (5-10 mg total) by mouth every 4 (four) hours as needed. metroNIDAZOLE Take 1 (one) 30 tablet 0 03/05/2017 Discontinued (FLAGYL) 500 MG tablet (500 8 tabletIndications: mg total) by Diverticulitis of mouth 3 large intestine (three) times without perforation a day with or abscess without meals. bleeding as of this encounter Active Problems [...] Vital Sign Reading Time Taken Blood Pressure 154/77 03/22/2017 10:58 AM EST Pulse 76 03/22/2017 10:58 AM EST Temperature 36.6 ??C (97.9 ??F) 03/22/2017 10:58 AM EST Respiratory Rate - - Oxygen Saturation - - Inhaled Oxygen Concentration - - Weight 65.4 kg (144 lb 1.6 oz) 03/22/2017 10:58 AM EST Height - - Body Mass Index 21.91 03/22/2017 10:58 AM EST in this encounter Progress Notes Estefany Gaxiola RN - 03/23/2017 9:12 AM EST I briefly touched base with Mr. Canales at the time of his visit. He did get his pancreatic enxzyme prescription and is taking it. It is helping him with his digestive issues. At this time he is not going to pursue active treatment. He has a follow up appt on 04/19/17. I will check in at that visit unless they need me sooner.Sherif Valles MD - 03/22/2017 11:12 AM ESTFormatting of this note may be different from the original. [facility] [address] [facility] [address] Hematology and Oncology Progress Note Patient Name: Elbert Canales MR #: [id number] : TYREL@ [facility] #: [id number] Date of Service: 03/22/17 Clinician: Sherif Valles MD Diagnosis: Pancreatic cancer, stage IB (T2N0M0), head and uncinate process, 2.1 cm, Dx-10/31/2016. Treatment: Neoadjuvant chemotherapy with Gemzar and Abraxane (d1,8,[id number]) started 11/16/16. Chief Complaint: Follow up, pancreatic [...] Colonic diverticulosis without evidence of diverticulitis. 7. Mgba-dp-hacbahpa constipation. 8. Moderate prostatomegaly. MRI Abdomen on [...] on 10/31/2016, by Dr. Partha Muñoz at [place] which showed a mass in thepancreatic head [...] 19-9 at 345. He was admitted at [facility] on 12/09/2016, with 1 day of increased [...] discharged yesterday. He was again discharged from [facility] on 12/18/2016. He was admitted on 12/15 [...] Stable appearance of left thyroid nodule. Labs done yesterday showed CA19-9 level up at 101, CMP panel unremarkable except blood sugar 198, and CBC with hemoglobin 12.6, otherwise unremarkable. He is here for followup evaluation and possibly to start chemotherapy. He is doing better now. Keeps losing weight, but has no diarrhea in the last 24 hours and since he started Creon he thinks that this is helping him. He has read about the 5-FU information and worried about the diarrhea, and he does not want to restart the chemotherapy. He is also worried about the abdominal hernia surgery and is going to make an appointment with Dr. Vences. He denies fevers, chills, nausea, vomiting, diarrhea. 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 Diarrhea better with Creon. Plan last visit discussed was treatment with 5-FU could be tried before radiation and during radiation and post radiation based on the RTOG trial 97-04, data published in [facility] on May 01, 2007. According to this, chemotherapy prior to chemoradiation with continuous 5-FU 250 mg per sq m per day for 3 weeks then between 1-2 weeks after completion of chemotherapy, chemoradiation was initiated with 50.4Gy of radiation with continuous infusion of 250 mg per sq m 5-FU daily throughout the radiation therapy, and another phase of chemotherapy was initiated 3-5 weeks after completion of chemoradiation therapy for 3 months. He states that his quality of life is much better off chemotherapy and is very concerned about the diarrhea due to 5-FU if he restarts the chemotherapy. He says that he is not ready for the chemotherapy yet and more worried about the abdominal hernia for which he is going to see Dr. Vences. I reviewed the lab findings and my concern for very high risk of recurrent pancreatic cancer. He states that he is aware of the risk of progression, but does want to take a 1 month time before he can reconsiderchemotherapy. We will re-evaluate him in about a month with a repeat CBC, CMP, and CA19-9 level. Ialso encouraged him to increase his food intake and he will have a supply of boost today. He voiced understanding with the above discussion. [...] mood and affect. Vital Signs: BP (!) 154/77 (BP Location: Left arm) Pulse 76 Temp 97.9 ??F (36.6 ??C) (Temporal) Wt 65.4 kg (144 lb 1.6 oz) BMI 21.91 kg/m?? Last Height and Weight with BMI: 65.4 kg (144 lb 1.6 oz) Body mass index is 21.91 kg/m??. PMH/PSH/FH/SH: Past Medical History: Diagnosis Date ??? Arthritis ??? BPH (benign prostatic hyperplasia) ??? Cancer (HCC) skin cancer ??? Cataract ??? Chemotherapy adverse reaction 12/01/2016 has had 2 treatments-- getting port now. Had adverse reaction to zofran after first treatment ??? Chronic diarrhea current problem (07/21/16), stool specimen positive for blood ([facility]) per pt ??? Colon polyps 2010 benign [...] Procedure: COLONOSCOPY; Surgeon: Kota Vences MD; Location: [facility] Endo; Service: ??? INSERTION SUBCUTANEOUS PORT N/A 12/04/2016 Procedure: PORT PLACEMENT ; Surgeon: Kota Vences MD; Location: [facility] Main OR; Service: ??? PROSTATE BIOPSY ??? SINUS SURGERY 2003 ??? WHIPPLE PROCEDURE N/A 01/24/2017 Procedure: WHIPPLE PROCEDURE; Surgeon: Inder Guillen MD; Location: [facility] Main OR; Service: Family History Problem Relation [...] Inhale 2.5 L/min nightly. Historical Provider, pancrelipase, Oaw-Axdl-Cxzb, (CREON) 12,000-38,000 -60,000 unit CpDR capsule Take 1 (one) capsule (12,000 units of lipase total) by mouth 3 (three) times a day with meals. 08/07/16 08/07/17 Jus Allison MD LABS: Pertinent latest labs reviewed in EMR and discussed with patient. WBC Date Value Ref Range Status 03/21/2017 6.20 4.50 - 11.00 K/mcL Final 07/07/2014 5.35 4.50 - 11.00 K/MCL RBC Date Value Ref Range Status 03/21/2017 4.17 (L) 4.50 - 5.90 M/mcL Final 07/07/2014 4.73 4.50 - 5.90 M/MCL Hemoglobin Date Value Ref Range Status 03/21/2017 12.6 (L) 13.5 - 17.5 g/dL Final 07/07/2014 15.3 13.5 - 17.5 G/DL Hematocrit Date Value Ref Range Status 03/21/2017 38.0 (L) 41.0 - 53.0 % Final 07/07/2014 45.2 41.0 - 53.0 % MCV Date Value Ref Range Status 03/21/2017 91.1 80.0 - 100.0 fL Final 07/07/2014 95.6 80.0 - 100.0 FL MCH Date Value Ref Range Status 03/21/2017 30.2 26.0 - 34.0 pg Final 07/07/2014 32.3 26.0 - 34.0 PG MCHC Date Value Ref Range Status 03/21/2017 33.2 31.0 - 37.0 g/dL Final Platelets Date Value Ref Range Status 03/21/2017 264 150 - 400 K/mcL Final RDW Date Value Ref Range Status 07/07/2014 12.5 11.6 - 14.8 % RDW - CV Date Value Ref Range Status 03/21/2017 13.7 11.6 - 14.8 % Final Sodium Date Value Ref Range Status 03/21/2017 135 135 - 145 mmol/L Final 07/07/2014 136 135 - 145 MMOL/L Potassium Date Value Ref Range Status 03/21/2017 4.1 3.5 - 5.1 mmol/L Final 07/07/2014 4.4 3.5 - 5.1 MMOL/L Chloride Date Value Ref Range Status 03/21/2017 95 (L) 98 - 108 mmol/L Final 07/07/2014 98 98 - 108 MMOL/L Bicarbonate Date Value Ref Range Status 03/21/2017 26 21 - 32 mmol/L Final 07/07/2014 28 21 - 32 MMOL/L Anion Gap Date Value Ref Range Status 03/21/2017 18 10 - 20 mmol/L Final Glucose Date Value Ref Range Status 03/21/2017 198 (H) 65 - 99 mg/dL Final 07/07/2014 94 65 - 99 MG/DL BUN Date Value Ref Range Status 03/21/2017 7 (L) 8 - 25 mg/dL Final 07/07/2014 12 8 - 25 MG/DL Creatinine Date Value Ref Range Status 03/21/2017 0.60 (L) 0.80 - 1.30 mg/dL Final 10/05/2016 0.7 (L) 0.8 - 1.3 mg/dL Final Serum Creatinine Date Value Ref Range Status 01/11/2012 0.9 0.8 - 1.3 MG/DL eGFR Date Value Ref Range Status 03/21/2017 98 >=60 mL/min/1.73 m2 Final GFR, Non Date Value Ref Range Status 01/11/2012 >60 >60 Comment: Test Units:mL/min/1.73m2 This Calculation is for Non Patients BUN/Creatinine Ratio Date Value Ref Range Status 03/21/2017 11.7 10.0 - 20.0 Final BUN/Creat Ratio Date Value Ref Range Status 07/07/2014 15.0 10.0 - 20.0 Comment: The above 18 analytes were performed by [address] [address] Ordered on: 07/07/2014, EMMA ALLISON Tests Performed at: [facility] Services (Unless Otherwise Specified) [address] [place] [address], [address] - [facility] #[id number] [facility] - Order ID:[id number] Sample ID:[id number] Total Protein Date Value Ref Range Status 03/21/2017 6.4 6.0 - 8.0 g/dL Final Albumin Date Value Ref Range Status 03/21/2017 3.4 3.2 - 5.2 g/dL Final Calcium Date Value Ref Range Status 03/21/2017 9.9 8.4 - 10.2 mg/dL Final 07/07/2014 10.0 8.4 - 10.2 MG/DL Alkaline Phosphatase Date Value Ref Range Status 03/21/2017 79 40 - 150 U/L Final AST Date Value Ref Range Status 03/21/2017 19 0 - 45 U/L Final ALT Date Value Ref Range Status 03/21/2017 13 0 - 40 U/L Final Total Bilirubin Date Value Ref Range Status 03/21/2017 0.3 0.0 - 1.3 mg/dL Final Diagnostic Tests: Pertinent available radiologic studies were reviewed. Follow Up: Return in about 4 weeks (around 04/19/2017) for Office Visit, Labs - See Treatment Plan. Orders Placed This Encounter Procedures ??? CBC and Differential Standing Status: Future Standing Expiration Date: 03/23/2018 ??? Comprehensive Metabolic Panel Standing Status: Future Standing Expiration Date: 03/23/2018 ??? CA 19-9 Standing Status: Future Standing Expiration Date: 03/23/2018 ? Sherif Valles MD [facility] [address] [facility], [address] [place] [address] [phone] CC: MD Inder Fink MD in this encounter Plan of Treatment Upcoming Encounters Date Type Specialty Care Team Description 03/26/2017 Radiation Oncology Radiation Oncology 04/18/2017 Nurse Only Infusion Therapy 04/19/2017 Office Visit Oncology Sherif Valles MD [address] [place] [address] [place] [id number] 04/25/2017 Radiation Oncology Radiation Oncology 05/11/2017 Office Visit Primary Care Jus Allison MD [address] [place], [place] [id number] Scheduled Tests Name Priority Associated Diagnoses Order Schedule CBC and Differential Routine Malignant neoplasm of head Expected: 04/19/2017 of pancreas (HCC) (Approximate), Chemotherapy follow-up Expires: 03/23/2018 examination Comprehensive Metabolic Routine Malignant neoplasm of head Expected: 04/19/2017 Panel of pancreas (HCC) (Approximate), Chemotherapy follow-up Expires: 03/23/2018 examination CA 19-9 Routine Malignant neoplasm of head Expected: 04/19/2017 of pancreas (HCC) (Approximate), Chemotherapy follow-up Expires: 03/23/2018 examination Health Maintenance Due Date Last Done Comments TETANUS EVERY 10 YR 1940 ZOSTER VACCINE 2001 PNEUMOCOCCAL VACCINE AGE 65+ (1 of 2 2006 - PCV13) SEQUENTIAL INFLUENZA VACCINE (#1) 2016 Low-dose CT Lung Cancer Screen 02/22/2018 02/22/2017, 01/03/2017, 10/16/2016 COLONOSCOPY 07/27/2021 07/27/2016, 01/12/2010 as of this encounter Implants Implanted Type Area Medical Office Manager Device Expiration Model / Identifier Date Serial / Lot Port Implanted Mri Isp W/8fr Cath Powerport - [id number] Catheter - Right: BARD PERIP 12/26/2017 [id number] / Implanted: Qty: 1 on 12/04/2016 by Kota Vences MD Implant Subclavian / [id number] Cath 90cm Peritoneal Open End W/Wall Slits - [id number] Catheter - N/A: Abdomen MEDTRO SHAGGY [id number] / Implanted: Qty: 1 on 01/24/2017 by Inder Guillen MD Implant / Sealant 10ml Floseal Matrix Hemostatic W/Ndl-Free Adapter - [id number] N/A: Abdomen TOBAR BIO 03/20/2018 [id number] / Implanted: Qty: 2 on 01/24/2017 by Inder Guillen MD / [id number] as of this encounter Visit Diagnoses Diagnosis Malignant neoplasm of head of pancreas (HCC) - Primary Malignant neoplasm of head of pancreas Chemotherapy follow-up examination Insurance Payer Benefit Plan / Group Subscriber ID Type Phone Address HUMAN MANAGED MEDICARE [facility] PLUS [facility] [id number] JESSICA PENDING HCAP/JESSICA PENDING HCAP/JESSICA 80% JESSICA [id number] [phone] [place] [id number] as of this encounter
--- OUTSIDE RECORDS SUMMARY | 2018-05-19 09:05 | XMS RPT_ITS | Summary of Care ---
:1940 Author Organization [facility] Address [address] [phone] Phone Care Team Providers Name Role Phone Jus Allison MD Primary Care Provider Sherif Valles MD Unavailable Varsha Pnieda CNP Unavailable Fran Burris MD Unavailable Inder Guillen MD Unavailable Virginia Lawrence RN Patient Navigator Unavailable Estefany Gaxiola RN Unavailable Unavailable Encounter Details Date Type Department Care Team Description 03/13/2017 Documentation [facility] Magda Pierre, [facility] [address] [place] [address] Allergies Active Allergy Reactions Severity [...] (one) 90 capsule 11 03/02/2017 03/02/2018 Active Wkn-Pycw-Yioj, (CREON) capsule 12,000-38,000 -60,000 (12,000 units unit [...] file as of this encounter Progress Notes Magda Pierre RN - 03/13/2017 1:36 PM ESTPatient called with symptoms of runny nose, cough with small amounts of clear sputum. Questions if r/t creon tablets. Highly unlikely, continue to use OTC meds for symptoms. Instructed to call office if worsening symptoms or if fever develops. Verbalized understanding.in this encounter Plan of Treatment Upcoming Encounters Date Type Specialty Care Team Description 03/21/2017 Nurse Only Infusion Therapy 03/22/2017 Office Visit Oncology Sherif Valles MD [address] [place] [address] [phone] 03/26/2017 Radiation Oncology Radiation Oncology 04/25/2017 Radiation Oncology Radiation Oncology 05/11/2017 Office Visit Primary Care Jus Allison MD [address] [place], [place] [id number] Health Maintenance Due Date Last Done Comments TETANUS EVERY 10 YR 1940 ZOSTER VACCINE 2001 PNEUMOCOCCAL VACCINE AGE 65+ (1 of 2 2006 - PCV13) SEQUENTIAL INFLUENZA VACCINE (#1) 2016 Low-dose CT Lung Cancer Screen 02/22/2018 02/22/2017, 01/03/2017, 10/16/2016 COLONOSCOPY 07/27/2021 07/27/2016, 01/12/2010 as of this encounter Implants Implanted Type Area Market Analyst Device Expiration Model / Identifier Date Serial / Lot Port Implanted Mri Isp W/8fr Cath Powerport - [id number] Catheter - Right: BARD PERIP 12/26/2017 [id number] / Implanted: Qty: 1 on 12/04/2016 by Kota Vences MD Implant Subclavian / [id number] Cath 90cm Peritoneal Open End W/Wall Slits - [id number] Catheter - N/A: Abdomen MEDTRO SHAGGY [id number] / Implanted: Qty: 1 on 01/24/2017 by Inder Guillen MD Implant / Sealant 10ml Floseal Matrix Hemostatic W/Ndl-Free Adapter - [id number] N/A: Abdomen TOBAR BIO 03/20/2018 [id number] / Implanted: Qty: 2 on 01/24/2017 by Inder Guillen MD / [id number] as of this encounter Insurance Payer Benefit Plan / Group Subscriber ID Type Phone Address [employer]NA [facility] [id number] [facility]/JESSICA 80% JESSICA [id number] as of this encounter
--- OUTSIDE RECORDS SUMMARY | 2018-05-19 09:05 | XMS RPT_ITS | Summary of Care ---
:1940 Author Organization [facility] Address [address] [phone] Phone Care Team Providers Name Role Phone Jus Allison MD Primary Care Provider Sherif Valles MD Unavailable Varsha Pineda CNP Unavailable Fran Burris MD Unavailable Inder Guillen MD Unavailable Virginia Lawrence RN Patient Navigator Unavailable Estefany Gaxiola RN Unavailable Unavailable Reason for Visit Reason Comments port draw cbc with diff cmp cqa 19.9 Encounter Details Date Type Department Care Team Description 03/21/2017 Nurse Only [facility] Sherif Valles MD Malignant neoplasm of head of pancreas (HCC) (Primary Dx); Center Chemo [address] [facility] Diarrhea due to malabsorption; Infusion Therapy Anand [address] Encounter for antineoplastic chemotherapy [address] [place] [address] [place] [address] [phone] Allergies Active Allergy Reactions Severity Noted Date [...] (one) 90 capsule 11 03/02/2017 03/02/2018 Active Olk-Berk-Wexv, (CREON) capsule 12,000-38,000 -60,000 (12,000 units unit CpDR capsule of lipase total) by mouth 3 (three) times a day with meals. metroNIDAZOLE (FLAGYL) Take 1 (one) 30 tablet [...] Vital Sign Reading Time Taken Blood Pressure 156/64 03/21/2017 11:24 AM EST Pulse 90 03/21/2017 11:24 AM EST Temperature 36.8 ??C (98.2 ??F) 03/21/2017 11:24 AM EST Respiratory Rate 18 03/21/2017 11:24 AM EST Oxygen Saturation - - Inhaled Oxygen Concentration - - Weight 65.3 kg (144 lb) 03/21/2017 11:24 AM EST Height 172.7 cm (5' 8) 03/21/2017 11:24 AM EST Body Mass Index 21.9 03/21/2017 11:24 AM EST in this encounter Plan of Treatment Upcoming Encounters Date Type Specialty Care Team Description 03/22/2017 Office Visit Oncology Sherif Valles MD [address] [place] [address] [phone] 03/26/2017 Radiation Oncology Radiation Oncology 04/25/2017 Radiation Oncology Radiation Oncology 05/11/2017 Office Visit Primary Care Jus Allison MD [address] [place] [address] [phone] Pending Results Name Priority Associated Diagnoses Date/Time CA 19-9 Routine Malignant neoplasm of head of pancreas (HCC) 03/21/2017 11:38 AM EST Diarrhea due to malabsorption Health Maintenance Due Date Last Done Comments TETANUS EVERY 10 YR 1940 ZOSTER VACCINE 2001 PNEUMOCOCCAL VACCINE AGE 65+ (1 of 2 2006 - PCV13) SEQUENTIAL INFLUENZA VACCINE (#1) 2016 Low-dose CT Lung Cancer Screen 02/22/2018 02/22/2017, 01/03/2017, 10/16/2016 COLONOSCOPY 07/27/2021 07/27/2016, 01/12/2010 as of this encounter Implants Implanted Type Area Wind Energy Systems Installer Device Expiration Model / Identifier Date Serial / Lot Port Implanted Mri Isp W/8fr Cath Powerport - [id number] Catheter - Right: BARD PERIP 12/26/2017 [id number] / Implanted: Qty: 1 on 12/04/2016 by Kota Vences MD Implant Subclavian / [id number] Cath 90cm Peritoneal Open End W/Wall Slits - [id number] Catheter - N/A: Abdomen MEDTRO SHAGGY [id number] / Implanted: Qty: 1 on 01/24/2017 by Inder Guillen MD Implant / Sealant 10ml Floseal Matrix Hemostatic W/Ndl-Free Adapter - [id number] N/A: Abdomen TOBAR BIO 03/20/2018 [id number] / Implanted: Qty: 2 on 01/24/2017 by Inder Guillen MD / [id number] as of this encounter Results CBC Auto Differential (03/21/2017 11:38 AM) Component Value Ref Range WBC 6.20 4.50 - 11.00 K/mcL RBC 4.17 (L) 4.50 - 5.90 M/mcL Hemoglobin 12.6 (L) 13.5 - 17.5 g/dL Hematocrit 38.0 (L) 41.0 - 53.0 % MCV 91.1 80.0 - 100.0 fL MCH 30.2 26.0 - 34.0 pg MCHC 33.2 31.0 - 37.0 g/dL Platelets 264 150 - 400 K/mcL RDW - CV 13.7 11.6 - 14.8 % MPV 9.1 9.0 - 15.5 fL Neutrophils 54.8 % Lymphocytes 33.7 % Monocytes 7.3 % Eosinophils 3.7 % Basophils 0.5 % Neutrophils Abs 3.40 1.70 - 7.00 K/mcL Lymphocytes Abs 2.09 0.90 - 4.00 K/mcL Monocytes Abs 0.45 0.30 - 0.90 K/mcL Eosinophils Abs 0.23 0.00 - 0.50 K/mcL Basophils Abs 0.03 0.00 - 0.30 K/mcL Nucleated RBC 0.0 % Nucleated RBC Abs 0.00 0.00 - 0.00 K/mcL Specimen Performing Laboratory Blood [facility] [address] [place] [address] Comprehensive Metabolic Panel (03/21/2017 11:38 AM) Component Value Ref Range Sodium 135 135 - 145 mmol/L Potassium 4.1 3.5 - 5.1 mmol/L Chloride 95 (L) 98 - 108 mmol/L Bicarbonate 26 21 - 32 mmol/L Anion Gap 18 10 - 20 mmol/L Glucose 198 (H) 65 - 99 mg/dL BUN 7 (L) 8 - 25 mg/dL Creatinine 0.60 (L) 0.80 - 1.30 mg/dL eGFR 98 >=60 mL/min/1.73 m2 BUN/Creatinine Ratio 11.7 10.0 - 20.0 Total Protein 6.4 6.0 - 8.0 g/dL Albumin 3.4 3.2 - 5.2 g/dL Calcium 9.9 8.4 - 10.2 mg/dL Alkaline Phosphatase 79 40 - 150 U/L AST 19 0 - 45 U/L ALT 13 0 - 40 U/L Total Bilirubin 0.3 0.0 - 1.3 mg/dL Specimen Performing Laboratory Blood [facility] [address] [place] [address] Narrative The eGFR should be used for monitoring renal function only and not for medication dosing. CBC and Differential (03/21/2017 11:38 AM) Specimen Performing Laboratory Blood Narrative The following orders were created for panel order CBC and Differential. Procedure? Abnormality? Status? ---------? ------? CBC Auto Differential[[id number]]?Abnormal?Final result? Please view results for these tests on the individual orders. in this encounter Visit Diagnoses Diagnosis Malignant neoplasm of head of pancreas (HCC) - Primary Malignant neoplasm of head of pancreas Diarrhea due to malabsorption Encounter for antineoplastic chemotherapy Administered Medications Inactive Administered Medications - up to 3 most recent administrations Medication Order MAR Action Action Date Dose Rate Site heparin, porcine (PF) injection Given 03/21/2017 11:39 EST 500 Units 500 Units 500 Units, Intravenous, As needed, For port needle removal and monthly., Starting 03/21/17 at 1121, For ports, flush with 10 mL 0.9% NaCl IV and 5 mL Heparin (100 units/mL) prior to needle removal and every month when not in use. sodium chloride (PF) (NS) 0.9 % flush 10 mL Given 03/21/2017 11:36 EST 10 mL 10 mL, Intravenous, As needed, line care, Starting 03/21/17 at 1121, For Central Lines. Flush before and after medication administration. sodium chloride (PF) (NS) 0.9 % flush 20 mL Given 03/21/2017 11:36 EST 20 mL 20 mL, Intravenous, As needed, line care, Starting 03/21/17 at 1121, For Central Lines. Flush after TPN, blood products, and blood draws. in this encounter Insurance Payer Benefit Plan / Group Subscriber ID Type Phone Address HUMANA MANAGED MEDICARE HUMANA [facility] [id number] JESSICA PENDING HCAP/JESSICA PENDING HCAP/JESSICA 80% JESSICA [id number] as of this encounter
--- OUTSIDE RECORDS SUMMARY | 2018-05-19 09:05 | XMS RPT_ITS | Summary of Care ---
:1940 Author Organization [facility] Address [address] [place] [address] Phone Care Team Providers Name Role Phone Jus Allison MD Primary Care Provider Sherif Valles MD Unavailable Varsha Pineda CNP Unavailable Fran Burris MD Unavailable Inder Guillen MD Unavailable Virginia Lawrence RN Patient Navigator Unavailable Reason for Visit Reason Comments Post-op Encounter Details Date Type Department Care Team Description 03/06/2017 Follow-Up [facility] Cancer & Inder Guillen MD Follow up (Primary Dx) [facility] [address] [facility] [address] [place] [address] [place] [address] Allergies Active Allergy Reactions Severity Noted Date [...] (one) 90 capsule 11 03/02/2017 03/02/2018 Active Ogd-Arek-Pxkp, (CREON) capsule (12,000 12,000-38,000 -60,000 units of [...] Vital Sign Reading Time Taken Blood Pressure 140/78 03/06/2017 2:26 PM EST Pulse 76 03/06/2017 2:26 PM EST Temperature - - Respiratory Rate 20 03/06/2017 2:26 PM EST Oxygen Saturation - - Inhaled Oxygen Concentration - - Weight 68.7 kg (151 lb 6.4 oz) 03/06/2017 2:26 PM EST Height - - Body Mass Index 23.02 03/06/2017 2:26 PM EST in this encounter Progress Notes Codi Kimble, TOYIN - 03/06/2017 3:15 PM ESTPatient seen today per patient request d/t concern of amount of cost of Creon. Patient states that he can not afford it. He is having diarrhea and Dr Valles has already prescribe it. I have supplied him with discount prescription cards to aid with cost but there is not a better alternative for his pancreatic insuffiency. He states his is tolerating a diet. He is planning to start a chemo pill soonbut wanted to get his diarrhea under control. Wound healed well No additional complaints All questions answered, present during visit RTC PRNin this encounter Plan of Treatment Upcoming Encounters Date Type Specialty Care Team Description 03/26/2017 Radiation Oncology Radiation Oncology 04/25/2017 Radiation Oncology Radiation Oncology 05/11/2017 Office Visit Primary Care Jus Allison MD [address] [place] [address] [phone] Health Maintenance Due Date Last Done Comments TETANUS EVERY 10 YR 1940 ZOSTER VACCINE 2001 PNEUMOCOCCAL VACCINE AGE 65+ (1 of 2 2006 - PCV13) SEQUENTIAL INFLUENZA VACCINE (#1) 2016 Low-dose CT Lung Cancer Screen 02/22/2018 02/22/2017, 01/03/2017, 10/16/2016 COLONOSCOPY 07/27/2021 07/27/2016, 01/12/2010 as of this encounter Implants Implanted Type Area Card Mounter Device Expiration Model / Identifier Date Serial / Lot Port Implanted Mri Isp W/8fr Cath Powerport - [id number] Catheter - Right: BARD PERIP 12/26/2017 [id number] / Implanted: Qty: 1 on 12/04/2016 by Kota Vences MD Implant Subclavian / [id number] Cath 90cm Peritoneal Open End W/Wall Slits - [id number] Catheter - N/A: Abdomen MEDTRO SHAGGY [id number] / Implanted: Qty: 1 on 01/24/2017 by Inder Guillen MD Implant / Sealant 10ml Floseal Matrix Hemostatic W/Ndl-Free Adapter - [id number] N/A: Abdomen TOBAR BIO 03/20/2018 [id number] / Implanted: Qty: 2 on 01/24/2017 by Inder Guillen MD / [id number] as of this encounter Visit Diagnoses Diagnosis Follow up - Primary Insurance Payer Benefit Plan / Group Subscriber ID Type Phone Address [facility] MEDICARE HU[employer] MCR GOLD PLUS [facility] [id number] [facility]/JESSICA 80% JESSICA [id number] as of this encounter
--- OUTSIDE RECORDS SUMMARY | 2018-05-19 09:05 | XMS RPT_ITS | Summary of Care ---
:1940 Author Organization [facility] Address [address] [place] [address] Phone Care Team Providers Name Role Phone Jus Allison MD Primary Care Provider Sherif Valles MD Unavailable Varsha Pineda CNP Unavailable Fran Burris MD Unavailable Inder Guillen MD Unavailable Virginia Lawrence RN Patient Navigator Unavailable Reason for Visit Reason Comments Port access for CT Encounter Details Date Type Department Care Team Description 02/22/2017 Nurse Only [facility] Sherif Valles MD Chemotherapy follow-up examination (Primary Dx); Center Chemo [address] [facility] Malignant neoplasm of head of pancreas (HCC); Infusion Therapy [address] Encounter for antineoplastic chemotherapy [address] [place] [address] [place] [address] [phone] Allergies Active Allergy Reactions Severity Noted Date [...] Vital Sign Reading Time Taken Blood Pressure 153/66 02/22/2017 9:29 AM EST Pulse 84 02/22/2017 9:29 AM EST Temperature 36.9 ??C (98.4 ??F) 02/22/2017 9:29 AM EST Respiratory Rate 18 02/22/2017 9:29 AM EST Oxygen Saturation - - Inhaled Oxygen Concentration - - Weight 73.3 kg (161 lb 8 oz) 02/22/2017 9:21 AM EST Height 172.7 cm (5' 8) 02/22/2017 9:21 AM EST Body Mass Index 24.56 02/22/2017 9:21 AM EST in this encounter Plan of Treatment Upcoming Encounters Date Type Specialty Care Team Description 02/22/2017 Radiation Oncology Radiation Oncology Cole Rivera Arrived MD [address] [address] [phone] 03/06/2017 Office Visit Oncology Sherif Valles MD [address] [address] [phone] 03/06/2017 Follow-Up Surgical Oncology Inder Guillen MD [address] [place] [address] [phone] 03/26/2017 Radiation Oncology Radiation Oncology 04/25/2017 Radiation Oncology Radiation Oncology 05/11/2017 Office Visit Primary Care Jsu Allison MD [address] [place] [address] [phone] Pending Results Name Priority Associated Diagnoses Date/Time CA 19-9 Routine Chemotherapy follow-up examination 02/22/2017 9:21 AM EST Malignant neoplasm of head of pancreas (HCC) Health Maintenance Due Date Last Done Comments TETANUS EVERY 10 YR 1940 ZOSTER VACCINE 2001 PNEUMOCOCCAL VACCINE AGE 65+ (1 of 2 - 2006 PCV13) SEQUENTIAL INFLUENZA VACCINE (#1) 2016 Low-dose CT Lung Cancer Screen 01/03/2018 01/03/2017, 10/16/2016 COLONOSCOPY 07/27/2021 07/27/2016, 01/12/2010 as of this encounter Implants Implanted Type Area Industrial Pharmacist Device Expiration Model / Identifier Date Serial / Lot Port Implanted Mri Isp W/8fr Cath Powerport - [id number] Catheter - Right: BARD PERIP 12/26/2017 [id number] / Implanted: Qty: 1 on 12/04/2016 by Kota Vences MD Implant Subclavian / [id number] Cath 90cm Peritoneal Open End W/Wall Slits - [id number] Catheter - N/A: Abdomen MEDTRO SHAGGY [id number] / Implanted: Qty: 1 on 01/24/2017 by Inder Guillen MD Implant / Sealant 10ml Floseal Matrix Hemostatic W/Ndl-Free Adapter - [id number] N/A: Abdomen TOBAR BIO 03/20/2018 [id number] / Implanted: Qty: 2 on 01/24/2017 by Inder Guillen MD / [id number] as of this encounter Results CBC Auto Differential (02/22/2017 9:21 AM) Component Value Ref Range WBC 6.34 4.50 - 11.00 K/mcL RBC 3.72 (L) 4.50 - 5.90 M/mcL Hemoglobin 11.4 (L) 13.5 - 17.5 g/dL Hematocrit 34.6 (L) 41.0 - 53.0 % MCV 93.0 80.0 - 100.0 fL MCH 30.6 26.0 - 34.0 pg MCHC 32.9 31.0 - 37.0 g/dL Platelets 330 150 - 400 K/mcL RDW - CV 13.4 11.6 - 14.8 % MPV 8.2 (L) 9.0 - 15.5 fL Neutrophils 47.7 % Lymphocytes 34.7 % Monocytes 10.3 % Eosinophils 6.5 % Basophils 0.8 % Neutrophils Abs 3.03 1.70 - 7.00 K/mcL Lymphocytes Abs 2.20 0.90 - 4.00 K/mcL Monocytes Abs 0.65 0.30 - 0.90 K/mcL Eosinophils Abs 0.41 0.00 - 0.50 K/mcL Basophils Abs 0.05 0.00 - 0.30 K/mcL Nucleated RBC 0.0 % Nucleated RBC Abs 0.00 0.00 - 0.00 K/mcL Specimen Performing Laboratory Blood [facility] [address] [place] [address] Comprehensive Metabolic Panel (02/22/2017 9:21 AM) Component Value Ref Range Sodium 135 135 - 145 mmol/L Potassium 4.1 3.5 - 5.1 mmol/L Chloride 96 (L) 98 - 108 mmol/L Bicarbonate 28 21 - 32 mmol/L Anion Gap 15 10 - 20 mmol/L Glucose 128 (H) 65 - 99 mg/dL BUN 4 (L) 8 - 25 mg/dL Creatinine 0.61 (L) 0.80 - 1.30 mg/dL eGFR 98 >=60 mL/min/1.73 m2 BUN/Creatinine Ratio 6.6 (L) 10.0 - 20.0 Total Protein 5.9 (L) 6.0 - 8.0 g/dL Albumin 3.3 3.2 - 5.2 g/dL Calcium 8.3 (L) 8.4 - 10.2 mg/dL Alkaline Phosphatase 86 40 - 150 U/L AST 15 0 - 45 U/L ALT 10 0 - 40 U/L Total Bilirubin 0.3 0.0 - 1.3 mg/dL Specimen Performing Laboratory Blood [facility] [address] [place] [address] Narrative The eGFR should be used for monitoring renal function only and not for medication dosing. CBC and Differential (02/22/2017 9:21 AM) Specimen Performing Laboratory Blood Narrative The following orders were created for panel order CBC and Differential. Procedure? Abnormality? Status? ---------? ------? CBC Auto Differential[[id number]]?Abnormal?Final result? Please view results for these tests on the individual orders. in this encounter Visit Diagnoses Diagnosis Chemotherapy follow-up examination - Primary Malignant neoplasm of head of pancreas (HCC) Malignant neoplasm of head of pancreas Encounter for antineoplastic chemotherapy Administered Medications Inactive Administered Medications - up to 3 most recent administrations Medication Order MAR Action Action Date Dose Rate Site heparin, porcine (PF) injection Given 02/22/2017 12:10 EST 500 Units 500 Units 500 Units, Intravenous, As needed, For port needle removal and monthly., Starting [facility] 02/22/17 at 0922, For ports, flush with 10 mL 0.9% NaCl IV and 5 mL Heparin (100 units/mL) prior to needle removal and every month when not in use. sodium chloride (PF) (NS) 0.9 % flush 10 mL Given 02/22/2017 09:32 EST 10 mL 10 mL, Intravenous, As needed, For port needle removal and monthly., Starting [facility] 02/22/17 at 0922, For ports, flush with 10 mL 0.9% NaCl IV and 5 mL Heparin (100 units/mL) prior to needle removal and every month when not in use. sodium chloride (PF) (NS) 0.9 % flush 20 mL Given 02/22/2017 09:32 EST 20 mL 20 mL, Intravenous, As needed, line care, Starting [facility] 02/22/17 at 0922, For Central Lines. Flush after TPN, blood products, and blood draws. in this encounter Insurance Payer Benefit Plan / Group Subscriber ID Type Phone Address HUMANA MANAGED MEDICARE [facility] GOLD PLUS O [id number] [facility] 80% [facility] [id number] Home: [address] [place], [place] [phone] [address] as of this encounter
--- OUTSIDE RECORDS SUMMARY | 2018-05-19 09:06 | XMS RPT_ITS | Summary of Care ---
:1940 Author Organization [facility] Address [address] [place] [address] Phone Care Team Providers Name Role Phone Jus Allison MD Primary Care Provider Sherif Valles MD Unavailable Varsha Pineda CNP Unavailable Fran Burris MD Unavailable Inder Guillen MD Unavailable Virginia Lawrence RN Patient Navigator Unavailable Reason for Visit Auth/Cert Status Reason Specialty Diagnoses / Procedures Referred By Contact Referred To Contact Encounter Details Date Type Department Care Team Description 02/05/2017 Home Health Admission [facility] [address] [place] [address] Allergies Active Allergy Reactions Severity Noted Date Comments Ciprofloxacin Hives 12/01/2014 Hives in the 80s Penicillin Hives 12/01/2014 Hives in the 80s [...] omeprazole (PRILOSEC) Take 1 (one) 30 capsule 08/18/2016 08/18/2017 Active 40 MG capsule (40 [...] neoplasm of head of pancreas (HCC) 11/07/2016 Prostatitis, chronic 11/10/2015 BPH with obstruction/lower urinary tract symptoms 11/04/2015 Elevated PSA 11/04/2015 Abnormal PSA 10/28/2015 Benign nodular prostatic hyperplasia with lower urinary tract symptoms 10/08/2015 Chronic obstructive pulmonary disease (HCC) 10/08/2015 Pure hypercholesterolemia 10/08/2015 Resolved Problems Problem Noted Date Resolved Date 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 Cellulitis of right lower leg 12/15/2016 12/19/2016 Cellulitis 12/13/2016 12/19/2016 Pancreatic mass 10/11/2016 11/16/2016 Social History Tobacco Use Types Packs/Day Years Used Date Current Every Day Smoker 1 60 Smokeless Tobacco: Never Used Alcohol Use Drinks/Week oz/Week Comments Yes rarely 1-2 week Sex Assigned at Date Recorded Not on file as of this encounter Plan of Treatment Upcoming Encounters Date Type Specialty Care Team Description 02/09/2017 Office Visit Primary Care Jus Allison MD [address] [place] [address] [phone] 02/13/2017 Follow-Up Surgical Oncology Inder Guillen MD [address] [facility] [address] [place] [address] [phone] 02/15/2017 Office Visit Oncology Sherif Valles MD 801 [facility] [address] [place], [place] [id number] Health Maintenance Due Date Last Done Comments TETANUS EVERY 10 YR 1940 ZOSTER VACCINE 2001 PNEUMOCOCCAL VACCINE AGE 65+ (1 of 2 - 2006 PCV13) SEQUENTIAL INFLUENZA VACCINE (#1) 2016 Low-dose CT Lung Cancer Screen 01/03/2018 01/03/2017, 10/16/2016 COLONOSCOPY 07/27/2021 07/27/2016, 01/12/2010 as of this encounter Implants Implanted Type Area Sales Representative Device Expiration Model / Identifier Date Serial / Lot Port Implanted Mri Isp W/8fr Cath Powerport - [id number] Catheter - Right: BARD PERIP 12/26/2017 [id number] / Implanted: Qty: 1 on 12/04/2016 by Kota Vences MD Implant Subclavian / [id number] Cath 90cm Peritoneal Open End W/Wall Slits - [id number] Catheter - N/A: Abdomen MEDTRO SHAGGY [id number] / Implanted: Qty: 1 on 01/24/2017 by Inder Guillen MD Implant / Sealant 10ml Floseal Matrix Hemostatic W/Ndl-Free Adapter - [id number] N/A: Abdomen TOBAR BIO 03/20/2018 [id number] / Implanted: Qty: 2 on 01/24/2017 by Inder Guillen MD / [id number] as of this encounter Insurance Payer Benefit Plan / Group Subscriber ID Type Phone Address HUMANA MANAGED MEDICARE HUMANA MCR GOLD PLUS [facility] [id number] [facility]/JESSICA 80% JESSICA [id number] [phone] [place] [id number] as of this encounter
--- OUTSIDE RECORDS SUMMARY | 2018-05-19 09:06 | XMS RPT_ITS | Summary of Care ---
:1940 Author Organization [facility] Address [address] [place] [address] Phone Care Team Providers Name Role Phone Jus Allison MD Primary Care Provider Sherif Valles MD Unavailable Varsha Pineda CNP Unavailable Fran Burris MD Unavailable Tati Guillen MD Unavailable Virginia Lawrence RN Patient Navigator Unavailable Reason for Referral Home Health (Urgent) Status Reason Specialty Diagnoses / Referred By Referred To Procedures Contact Contact Pending Review Home Health Diagnoses Malignant neoplasm of head of pancreas (HCC) Tati Guillen Services MD [address] [facility] [address] [place] [address] Reason for Visit Auth/Cert Status Reason Specialty Diagnoses / Procedures Referred By Contact Referred To Contact Diagnoses C25.0 Procedures [place] PART REMV PANC,PROX+REMV DUOD+ANAST WHIPPLE PROCEDURE Encounter Details Date Type Department Care Team Description 01/23/2017 - Hospital Encounter [facility] Tati Guillen MD [address] [facility] [address] [place] [address] Malignant neoplasm of head of pancreas (HCC) (Primary Dx); 02/05/2017 [facility] Surgical Carlos Blackburn MD [address] [facility] [address] [place] [address] Cancer of head of pancreas (HCC) [address] [place] [address] Allergies Active Allergy Reactions Severity Noted Date Comments Ciprofloxacin Hives 12/01/2014 Hives in the 80s Penicillin Hives 12/01/2014 Hives in the 80s Tetracycline 12/01/2014 Ondansetron Hcl Hives 11/30/2016 Itching, hives, shortness of breath, sweating as of this encounter Medications Prescription Sig. Disp. Refills Start End Date Status Date aspirin 81 MG EC tablet Take 1 tablet Active by mouth daily . mometasone-formoterol Inhale 2 Active (DULERA) 200-5 puffs 2 (two) 2 mcg/actuation HFAA times a day. oxygen Inhale 2.5 Active L/min nightly. omeprazole (PRILOSEC) Take 1 (one) 30 capsule 11 08/19/19 Active 40 MG capsule (40 7 18 capsuleIndications: mg total) by Generalized abdominal mouth daily. pain diphenhydrAMINE Take 25 mg by Active (BENADRYL) 25 mg mouth every 6 capsule (six) hours as needed for itching. enoxaparin (LOVENOX) 40 Inject 0.4 mL 6.8 mL 0 02/24/20 Active mg/0.4 mL (40 mg total) 7 17 SyrgIndications: under the Abdominal Surgery Deep skin daily Vein Thrombosis for 17 days. Prevention, Pancreaticc Adenocarcinoma oxyCODONE (ROXICODONE) Take 1 (one) 90 tablet 0 Active 5 MG immediate release tablet to 2 7 tablet (two) tablets (5-10 mg total) by mouth every 4 (four) hours as needed. metoclopramide (REGLAN) Take 1 (one) 120 tablet 0 03/07/19 Active 10 MG tablet tablet (10 mg 7 18 total) by mouth 4 (four) times a day with meals and nightly. magnesium hydroxide Take 30 mL 900 mL 0 03/07/19 Active (MOM) 400 mg/5 mL Susp (2,400 mg 7 18 total) by mouth daily. docusate sodium Take 1 (one) 10 capsule 0 03/07/19 Active (COLACE) 100 MG capsule capsule (100 7 18 mg total) by mouth 2 (two) times a day ; while taking narcotic pain medication. Hold for loose stools.. methylPREDNISolone Reasons: PT 02/06/20 Discontinued (MEDROL DOSEPACK) 4 mg has at home, 7 17 tabletIndications: PT but not has at home, but not taking at taking at this time this time. as of this encounter Active Problems Problem [...] Vital Sign Reading Time Taken Blood Pressure 128/59 02/05/2017 11:37 AM EST Pulse 78 02/05/2017 11:37 AM EST Temperature 36.8 ??C (98.3 ??F) 02/05/2017 11:37 AM EST Respiratory Rate 12 02/05/2017 11:37 AM EST Oxygen Saturation 95% 02/05/2017 11:37 AM EST Inhaled Oxygen Concentration - - Weight 72.8 kg (160 lb 7.9 oz) 02/01/2017 6:19 AM EST Height 172.7 cm (5' 8) 01/24/2017 6:13 AM EST Body Mass Index 24.4 02/01/2017 6:19 AM EST in this encounter Discharge Instructions Adithya Jacobs MD - 02/05/2017Pancreatic Cancer Surgery: What to Expect at Home Your Recovery By the time you go home, most of your pain will probably be gone. If you have pain, you will have medicine you can take. You will probably feel very tired and weak. Even simple tasks may tire you. Takenaps when you wish, but try to get some exercise. You may have trouble concentrating or difficulty sleeping. This usually goes away in 2 to 4 weeks. You will probably be able to return to work or your normal routine in about 1 month. It will probably take about 3 months for your strength to come back fully. You may need more treatment for the cancer, such as chemotherapy or radiation. Food may not taste good to you and may have a metallic taste. Your stomach may not empty as it should after eating. This may cause nausea, vomiting, and loss of appetite. These usually go away 2 to 6 weeks after surgery. Most people regain their normal appetite in about 8 weeks. You will probably losesome weight. This is normal. You may have a feeding tube (J-tube) coming out of your belly. If you have one, your doctor will decide when to take it out. You may have it for several months or longer. When you find out that you have cancer, you may feel many emotions and may need some help coping. Seek out family, friends, and counselors for support. You also can do things at home to make yourself feel better while you go through treatment. Call the [employer] ( ) or visitits website at www.cancer.org for more information. This care sheet gives you a general idea about how long it will take for you to recover. But each person recovers at a different pace. Follow the steps below to get better as quickly as possible. How can you care for yourself at home? Activity ?? Rest when you feel tired. Getting enough sleep will help you recover. You will probably want to nap often. ?? Try to walk each day. Start by walking a little more than you did the day before. Bit by bit, increase the amount you walk. Walking boosts blood flow and helps prevent pneumonia and constipation. ?? For about 4 to 6 weeks after surgery, avoid lifting anything that would make you strain. This mayinclude a child, heavy grocery bags and milk containers, a heavy briefcase or backpack, cat litter or dog food bags, or a vacuum hand rug cleaner. ?? Avoid strenuous activities, such as biking, jogging, weight lifting, or aerobic exercise, until your doctor says it is okay. ?? You may shower, if your doctor okays it. Pat the cut (incision) dry. Follow your doctor's instructions about showering with your drain and how to empty and care for it. Keep your feeding tube taped to your skin so it will not fall off. After showering, clean the tube site, dry it well, and replace the dressing if you have one. ?? Ask your doctor when you can drive again. ?? You will probably be able to return to work about 4 weeks after you leave the hospital. ?? Your doctor will tell you when you can have sex again. Diet ?? Sometimes the stomach empties food into the small intestine too quickly. This is called dumping syndrome. It can cause diarrhea and make you feel faint, shaky, and nauseated. It also can make it hard for your body to get enough nutrition. ?? High-sugar foods???such as desserts, soda pop, and fruit juices???are most likely to cause dumping syndrome. Avoid high-sugar foods, or use products that have artificial sweeteners if sugar gives you a problem. ?? Do not drink liquids within a half hour before eating and up to an hour after eating. Liquids move food even more quickly into the small intestine. Quick emptying of the stomach increases the chanceof diarrhea. ?? Eat slowly. Try to chew each bite about 20 times. Allow 20 to 30 minutes for each meal. ?? Eat 5 or 6 small meals or snacks a day. This may keep you from feeling too full after eating and may reduce problems with diarrhea and dumping syndrome. ?? If the surgeon did not remove any part of your stomach, you can eat your normal diet. But the surgery affects everyone's digestion differently. You may need to eat more smaller meals instead of fewer larger meals. You may have to try several foods to see what tastes good to you. ?? Eat healthy food. If you do not feel like eating, try to eat food that has protein and extra calories to keep up your strength and prevent weight loss. Drink liquid meal replacements for extra calories and protein. If your stomach is upset, try bland, low-fat foods like plain rice, broiled chicken,toast, and yogurt. ?? Whenever you eat, you may have to take enzyme pills to replace those the pancreas makes. These help you digest your food, especially fat. ?? You may notice that your bowel movements are not regular right after your surgery. This is common. Try to avoid constipation and straining with bowel movements. You may want to take a fiber supplement every day. If you have not had a bowel movement after a couple of days, ask your doctor about taking a mild laxative. Medicines ?? Your doctor will tell you if and when you can restart your medicines. He or she will also give you instructions about taking any new medicines. ?? If you take blood thinners, such as warfarin (Coumadin), clopidogrel (Plavix), or aspirin, be sure to talk to your doctor. He or she will tell you if and when to start taking those medicines again. Make sure that you understand exactly what your doctor wants you to do. ?? You may have to take anti-ulcer medicine for stomach ulcers. ?? You may have diabetes. If this is the case, you may have to check your blood sugar and give yourself insulin shots every day. ?? You may need to take enzyme supplements to replace enzymes the pancreas makes. ?? Take pain medicines exactly as directed. ?? If the doctor gave you a prescription medicine for pain, take it as prescribed. ?? If you are not taking a prescription pain medicine, ask your doctor if you can take an byiu-qii-ohyuqgi medicine. ?? If you think your pain medicine is making you sick to your stomach: ?? Take your medicine after meals (unless your doctor has told you not to). ?? Ask your doctor for a different pain medicine. ?? If your doctor prescribed antibiotics, take them as directed. Do not stop taking them just because you feel better. You need to take the full course of antibiotics. Incision care ?? You may feel a ridge along the incision, or cut. This is normal, and it will go away in a few weeks. ?? Wash the area daily with warm, soapy water and pat it dry, unless your doctor tells you not to. ?? If you have strips of tape on the cut, leave the tape on for a week or until it falls off. ?? You may see a small amount of clear or light red fluid staining your dressing. This is normal. Exercise ?? Regular exercise will help you regain strength. Start with walking every day. Your doctor will tell you when you can do more. Other instructions ?? You will have a drain near your incision. Your doctor will tell you how to take care of it. ?? You may have a feeding tube in your belly. Your doctor will show you how to use it and take care of it. ?? It is normal to have some yellowish fluid around your feeding tube. This is not a sign of infection. ?? Keep your feeding tube clamped unless you are using it. ?? Keep it taped to your skin at all times. ?? Clean around the tube with water before and after you use it. ?? Flush the tube daily as your doctor tells you to. Follow-up care is a hein part of your treatment and safety. Be sure to make and go to all appointments, and call your doctor if you are having problems. It's also a good idea to know your test results and keep a list of the medicines you take. When should you call for help? Call 911 anytime you think you may need emergency care. For example, call if: ?? You passed out (lost consciousness). ?? You have severe trouble breathing. ?? You have sudden chest pain and shortness of breath, or you cough up blood. Call your doctor now or seek immediate medical care if: ?? Your feeding tube or the stitches holding it start to pull out. ?? Your feeding tube is leaking or becomes cracked. ?? It becomes harder to put food through the feeding tube. ?? You have pain that does not get better when you take your pain medicine, especially pain in the belly. ?? You have loose stitches, or your incision comes open. ?? Bright red blood or a clear fluid has soaked through a large bandage over your incision. ?? You have signs of infection, such as: ?? Increased pain, swelling, warmth, or redness. ?? Red streaks leading from the incision. ?? Pus draining from the incision. ?? A fever. ?? You have signs of a blood clot, such as: ?? Pain in your calf, back of knee, thigh, or groin. ?? Redness and swelling in your leg or groin. Watch closely for changes in your health, and be sure to contact your doctor if: ?? You have diarrhea or are vomiting. ?? Your stools look greasy or have undigested food in them. ?? You urinate a lot more and feel thirsty. ?? You have signs of jaundice. These include the white parts of your eyes looking yellow and your urine turning brown. ?? Fluid is leaking around the drain, or you have no new fluid in the drain for 24 hours. ?? You do not have a bowel movement after taking a laxative. Where can you learn more? Log into your personal health record on https://[employer] and enter P848 in the Education box to learn more about Pancreatic Cancer Surgery: What to Expect at Home. Current as of: September 21, 2015 Content Version: 11.2 ?? 0880-7497 [employer]. Care instructions adapted under license by your healthcare professional. If you have questions about a medical condition or this instruction, always ask your healthcare professional. [employer] disclaims any warranty or liability for your use of this information. The following attachments cannot be sent through Care Everywhere.ENOXAPARIN (LOVENOX) (WELSH)in this encounter Progress Notes Tai Morrison Jr., MD - 02/05/2017 2:01 PM ESTFormatting of this note may be different from the original. [facility] Inpatient Progress Note 02/05/2017 Elbert Espinosa 1940 [id number] Assessment/Plan: Elbert Espinosa is a 76 y.o. male with a history of pancreatic cancer, COPD and tobacco abuse who presented to [facility] 01/23/2017 for planned whipple procedure per Dr. Guillen (surg/onc). [facility] was consulted for medical management. ?? 1. Pancreatic adenocarcinoma: Diagnosed 10/2014. Stage IIB, s/p 3 treatments of neoadjuvant chemotherapy, stopped early due to side effects. Dr. Guillen (surg/onc) performed whipple procedure 01/23/17. 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 Pl aced on TPN due to chyle leak 01/31/17 per surgery. Advancing diet 02/04/17 per surgery and off TPN 02/05/17 2. DM: New diagnosis and with hyperglycemia post op, covered with SSI. A1C 6.6% on 01/25/17. Has required minimal insulin coverage in hospital, suspect due to tube feeds. He requested to manage with diet control on discharge and will follow with PCP. 3. Hyponatremia: Baseline unclear. NA 131 on admission and suspect some chronic hyponatremia. Possibly SIADH due to above. Resolved with IVF/lasix post op, and recurred 02/02/17 on sandhu. Renal function normal, glucose normal not given lasix since 01/28/17. He does have some R worse than L leg edema but per patient this is secondary to pseudocellulitis from his gemzar. On evaluation he is euvolemic. F/rejiith PCP, highly suspect chronic hyponatremia and can be followed as outpatient. 4. COPD: Per history. Not on home 02. Not in acute exacerbation. Continued home inhalers. 5. Smoker: Active. Cessation advised. 6. DVT Prophylaxis: per surgery. ?? Thank you for allowing us to participate in the care of your patient. Do not hesitate to contact us with questions. Before 6 pm, please contact the provider listed in the treatment team. After 6 pm, please contact [phone] for any questions or concerns. ?? Patient Arrived From: Home Expected Disposition: Home with [facility]. Based on current clinical information, the expected discharge date is: Per primary Subjective: Doing well and eager to go home. Sodium reviewed with patient and he states he has been told that before by his PCP. Moist mucus membranes on exam. Some edema right worse than left leg which is normal for him since his pseudocellulitis from his gemzar. Discussed with nursing that he could leave from my standpoint but will be surgery discharge. Physical Exam: BP (!) 128/59 (BP Location: Right arm, Patient Position: Standing) Pulse 78 Temp 98.3 ??F (36.8 ??C) (Oral) Resp 12 Ht 5' 8 Wt 72.8 kg (160 lb 7.9 oz) SpO2 95% BMI 24.40 kg/m?? General: NAD Eyes: EOMI ENT: neck supple, CVC in place Cardiovascular: Regular rate. Respiratory: Clear to auscultation Gastrointestinal: Incisional sites C/D/I, bandaged, drains in place Genitourinary: no suprapubic tenderness Musculoskeletal: No edema. Skin: warm, dry Neuro: Alert. Psych: Mood appropriate. Labs, Imaging and Studies reviewed: Lab Results Component Value Date GLUCOSE 115 (H) 02/05/2017 CALCIUM 8.7 02/05/2017 NA 129 (L) 02/05/2017 K 4.2 02/05/2017 CL 94 (L) 02/05/2017 BUN 13 02/05/2017 CREATININE 0.56 (L) 02/05/2017 Lab Results Component Value Date WBC 7.11 02/05/2017 HGB 10.6 (L) 02/05/2017 HCT 31.4 (L) 02/05/2017 MCV 92.4 02/05/2017 PLT 329 02/05/2017 Lab Results Component Value Date ALT 29 02/05/2017 AST 21 02/05/2017 ALKPHOS 75 02/05/2017 BILITOT 0.4 02/05/2017 Lab Results Component Value Date INR 1.0 02/05/[address] - 02/05/2017 11:20 AM ESTNutrition Support Team Daily Progress Note Pertinent clinical issues: TPN d/c'd per surgery. TPN Changes: NST to sign off. Please re-consult if a change in condition occurs. Corey Lee RDN, LD, [facility] . Adithya Jacobs MD - 02/05/2017 9:07 AM ESTFormatting of this note may be different from the original. Surgical Oncology Daily Progress Note Patient Name: Elbert Espinosa MR #: [id number] : 1940 Assessment and Plan: Pancreatic Adenocarcinoma S/p Whipple on 01/24 - AF/VSS - Drain with SS output this am - Clamp G-tube, unclamp prn nausea - Tolerating low fat diet, home later today - TPN off Weekdays 5a-5p [phone] Nights & Weekends [phone] Subjective: NAEO Objective: Vital Signs BP 130/70 (BP Location: Right arm, Patient Position: Sitting) Pulse 72 Temp 97.6 ??F (36.4 ??C) (Oral) Resp 14 Ht 5' 8 Wt 72.8 kg (160 lb 7.9 oz) SpO2 94% BMI 24.40 kg/m?? Constitutional Awake, alert, oriented. NAD Head Normocephalic, atraumatic Ears Grossly normal hearing, auricles without deformity Eyes EOMI, vision grossly intact Neck Trachea midline, soft Cardiovascular Hemodynamically stable, palpable pulses throughout Chest Non-labored breathing, equal chest rise Abdomen Soft,ATTP; non-distended; no peritoneal signs Drain Extremities Motor and sensory intact in all 4 extremities, no obvious deformity Skin Warm, dry, intact Neurologic: No focal deficits Laboratory Studies: Recent laboratory studies reviewed CBC: Results from last 7 days Lab Units 02/05/17 043 WBC K/mcL 7.11 HGB g/dL 10.6* HCT % 31.4* PLT K/mcL 329 Results from last 7 days Lab Units 02/05/17 0430 02/04/1745802/03/17 0350 HGB g/dL 10.6* 9.6* 9.7* Chem: Results from last 7 days Lab Units 02/05/17 0430 SODIUM mmol/L 129* POTASSIUM mmol/L 4.2 CHLORIDE mmol/L 94* BUN mg/dL 13 CREATININE mg/dL 0.56* CALCIUM mg/dL 8.7 TOTAL PROTEIN g/dL 5.9* ALK PHOS U/L 75 ALT U/L 29 AST U/L 21 GLUCOSE mg/dL 115* Results from last 7 days Lab Units 02/05/17 0430 02/04/179 02/03/17 0350 CREATININE mg/dL 0.56* 0.50* 0.53* LFT's: Results from last 7 days Lab Units 02/05/17 043 ALK PHOS U/L 75 BILIRUBIN TOTAL mg/dL 0.4 TOTAL PROTEIN g/dL 5.9* AST U/L 21 ALT U/L 29 Diagnostic Imaging: Recent diagnostic imaging/reports reviewed Ryan Licona MD PGY 3 02/05/2017 9:07 AM Associated attestation - Tati Guillen MD - 02/05/2017 2:53 PM ESTResident's H&P note reviewed. I personally examined this patient and reviewed all pertinent data. A thorough examination of remaining 10 point review of systems did not reveal any pertinent positive or negative findings except those described in the resident's note. Doing well ,AVSS Tolerating low fat diet, no change in CODIE color. D/c CODIE today. Wound clean and dry. D/c home today with lovenox and low fat diet. D/c TPN. [facility] Cooper MD - 02/04/2017 12:29 PM ESTSurgical oncology attending Doing well no change in codie Low fat dietRachna Patel RD - 02/04/2017 10:44 AM EST Nutrition Support Team Daily Progress Note Pertinent clinical issues: po Low Fat diet. Intake at meal NR, appetite fair x 1 meal recorded. LBM 02/03. 190cc/drains Current weight: no new weight TPN: 15% Dextrose, 5% AA,, at 40ml/hr with 250ml 20% ILE qd TPN Provides: 1181 kcal 48g protein Custom TPN additives in mEq/d : 80 NaCl, 0 NaAc, 10 kPhos, 40 KCl, 0 KAc, 8 CaGluc, 8 MgSO4, 0 units insulin, additional additives: MVI, trace elements, MIVF: none Pertinent labs: Phos 4.1 Na 130 K 4.2 Cl 95 CO2 24 BUN 15 Cr 0.5 Alb 2.5 ICa 4.9 Mg 1.8 FSBG 81-181 6 units corrective insulin within the past 24h TPN Changes: No change. Monitor progress with oral diet Assessed by Rachna Patel RD [facility] Gibran Denis MD - 02/04/2017 10:24 AM ESTFormatting of this note may be different from the original. [facility] Inpatient Progress Note 02/04/2017 Elbert Espinosa 1940 [id number] Assessment/Plan: Elbert Espinosa is a 76 y.o. male with a history of pancreatic cancer, COPD and tobacco abuse who presented to [facility] 01/23/2017 for planned whipple procedure per Dr. Guillen (surg/onc). [facility] was consulted for medical management. ?? 1. Pancreatic adenocarcinoma: Diagnosed 10/2014. Stage IIB, s/p 3 treatments of neoadjuvant chemotherapy, stopped early due to side effects. Dr. Guillen (surg/onc) performed whipple procedure 01/23/17. 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 Pl aced on TPN due to chyle leak 01/31/17 per surgery. Advancing diet 02/04/17 per surgery. 2. DM: New diagnosis and with hyperglycemia post op, covered with SSI. A1C 6.6% on 01/25/17. Has required minimal insulin coverage in hospital, suspect due to tube feeds. He requested to manage with diet control on discharge and will follow with PCP. 3. Hyponatremia: Baseline unclear. NA 131 on admission. Possibly SIADH due to above. Resolved with IVF/lasix post op, monitored. 4. COPD: Per history. Not on home 02. Not in acute exacerbation. Continued home inhalers. 5. Smoker: Active. Cessation advised. 6. DVT Prophylaxis: per surgery. ?? Thank you for allowing us to participate in the care of your patient. Do not hesitate to contact us with questions. Before 6 pm, please contact the provider listed in the treatment team. After 6 pm, please contact [phone] for any questions or concerns. ?? Patient Arrived From: Home Expected Disposition: Home with [facility]. Based on current clinical information, the expected discharge date is: 02/05 or 02/06? Subjective: Chart reviewed, including documentation from campaign consultant recommendations. No overnight events. Denies any more diarrhea. Tolerating low fat diet so far. Physical Exam: BP (!) 159/69 (BP Location: Left arm, Patient Position: Lying) Pulse 71 Temp 97.9 ??F (36.6 ??C) (Oral) Resp 16 Ht 5' 8 Wt 72.8 kg (160 lb 7.9 oz) SpO2 96% BMI 24.40 kg/m?? General: NAD Eyes: EOMI ENT: neck supple, CVC in place Cardiovascular: Regular rate. Respiratory: Clear to auscultation Gastrointestinal: Incisional sites C/D/I, bandaged, drains in place Genitourinary: no suprapubic tenderness Musculoskeletal: No edema. Skin: warm, dry Neuro: Alert. Psych: Mood appropriate. Labs, Imaging and Studies reviewed: Lab Results Component Value Date GLUCOSE 125 (H) 02/04/2017 CALCIUM 8.2 (L) 02/04/2017 NA 130 (L) 02/04/2017 K 4.2 02/04/2017 CL 95 (L) 02/04/2017 BUN 15 02/04/2017 CREATININE 0.50 (L) 02/04/2017 Lab Results Component Value Date WBC 7.17 02/04/2017 HGB 9.6 (L) 02/04/2017 HCT 27.8 (L) 02/04/2017 MCV 93.6 02/04/2017 PLT 267 02/04/2017 Lab Results Component Value Date ALT 30 02/04/2017 AST 20 02/04/2017 ALKPHOS 60 02/04/2017 BILITOT <0.2 02/04/2017 Lab Results Component Value Date INR 1.1 02/04/[address] - 02/03/2017 1:02 PM EST Nutrition Support Team Daily Progress Note Pertinent clinical issues: diet increased to Full liquids (noted plans to advance to low fat, ordersnot written). Per notes, plan to wean TPN to off next 24-48h Current weight: no new weight TPN: 15% Dextrose, 5% AA, at 83ml/hr with 250ml 20% ILE qd TPN Provides: 1914 kcal 99g protein Custom TPN additives in mEq/d : 120 NaCl, 0 NaAc, 10 kPhos, 40 KCl, 0 KAc, 8 CaGluc, 8 MgSO4, 0 units insulin, additional additives: MVI, trace elements, MIVF: NS at 40cc/hr Pertinent labs: Na 132 K 4.3 Cl 97 CO2 23 BUN 16 Cr 0.53 Mg 1.9 Pos 3.5 ICa 4.9 FSBG 131-186 26units corrective insulin within the past 24h TPN Changes: Decrease TPN rate to 40cc/hr. Wean TPN to off when tolerance to diet fully established. Assessed by Rachna Patel RD [facility] Gibran Denis MD - 02/03/2017 11:00 AM ESTFormatting of this note may be different from the original. [facility] Inpatient Progress Note 02/03/2017 Elbert Espinosa 1940 [id number] Assessment/Plan: Elbert Espinosa is a 76 y.o. male with a history of pancreatic cancer, COPD and tobacco abuse who presented to [facility] 01/23/2017 for planned whipple procedure per Dr. Guillen (surg/onc). [facility] was consulted for medical management. ?? 1. Pancreatic adenocarcinoma: Diagnosed 10/2014. Stage IIB, s/p 3 treatments of neoadjuvant chemotherapy, stopped early due to side effects. Dr. Guillen (surg/onc) performed whipple procedure 01/23/17. 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 Pl aced on TPN due to chyle leak 01/31/17 per surgery. Advancing diet 02/04/17. 2. DM: New diagnosis and with hyperglycemia post op, covered with SSI. A1C 6.6% on 01/25/17. Has required minimal insulin coverage in hospital, suspect due to tube feeds. He is requesting to manage with diet control and will follow with PCP on discharge. 3. Hyponatremia: Baseline unclear. NA 131 on admission. Possibly SIADH due to above. Resolved with IVF/lasix post op, monitored. 4. COPD: Per history. Not on home 02. Not in acute exacerbation. Continued home inhalers. 5. Smoker: Active. Cessation advised. 6. DVT Prophylaxis: per surgery. ?? Thank you for allowing us to participate in the care of your patient. Do not hesitate to contact us with questions. Before 6 pm, please contact the provider listed in the treatment team. After 6 pm, please contact [phone] for any questions or concerns. ?? Patient Arrived From: Home Expected Disposition: Home with [facility]. Based on current clinical information, the expected discharge date is: 02/05 or 02/06? Subjective: Chart reviewed, including documentation from campaign consultant recommendations. Pulse ox reviewed. Discussed with RN and wrapper caser. No overnight events. No more diarrhea. Physical Exam: BP 135/66 (BP Location: Left arm, Patient Position: Lying) Pulse 72 Temp 97.9 ??F (36.6 ??C) (Oral) Resp 16 Ht 5' 8 Wt 72.8 kg (160 lb 7.9 oz) SpO2 95% BMI 24.4 kg/m2 General: NAD Eyes: EOMI ENT: neck supple, CVC in place Cardiovascular: Regular rate. Respiratory: Clear to auscultation Gastrointestinal: Incisional sites C/D/I, bandaged, drains in place Genitourinary: no suprapubic tenderness Musculoskeletal: No edema. Skin: warm, dry Neuro: Alert. Psych: Mood appropriate. Labs, Imaging and Studies reviewed: Lab Results Component Value Date GLUCOSE 177 (H) 02/03/2017 CALCIUM 8.1 (L) 02/03/2017 NA 132 (L) 02/03/2017 K 4.3 02/03/2017 CL 97 (L) 02/03/2017 BUN 16 02/03/2017 CREATININE 0.53 (L) 02/03/2017 Lab Results Component Value Date WBC 7.01 02/03/2017 HGB 9.7 (L) 02/03/2017 HCT 28.5 (L) 02/03/2017 MCV 94.4 02/03/2017 PLT 252 02/03/2017 Lab Results Component Value Date ALT 31 02/03/2017 AST 19 02/03/2017 ALKPHOS 58 02/03/2017 BILITOT <0.2 02/03/2017 Lab Results Component Value Date INR 1.1 02/03/2017 Chivo Shah MD - 02/03/2017 10:57 AM ESTFormatting of this note may be different from the original. Surgical Oncology Daily Progress Note Patient Name: Elbert Espinosa MR #: [id number] : 1940 Assessment and Plan: Pancreatic Adenocarcinoma S/p Whipple on 01/24 - AF/VSS - Drain with SS output this am - Clamp G-tube, unclamp prn - Trial low fat diet - Continue TPN today Weekdays 5a-5p [phone] Nights & Weekends [phone] Subjective: NAEO Objective: Vital Signs BP 135/66 (BP Location: Left arm, Patient Position: Lying) Pulse 72 Temp 97.9 ??F (36.6 ??C) (Oral) Resp 16 Ht 5' 8 Wt 72.8 kg (160 lb 7.9 oz) SpO2 95% BMI 24.4 kg/m2 Constitutional Awake, alert, oriented. NAD Head Normocephalic, atraumatic Ears Grossly normal hearing, auricles without deformity Eyes EOMI, vision grossly intact Neck Trachea midline, soft Cardiovascular Hemodynamically stable, palpable pulses throughout Chest Non-labored breathing, equal chest rise Abdomen Soft,ATTP; non-distended; no peritoneal signs Drain Extremities Motor and sensory intact in all 4 extremities, no obvious deformity Skin Warm, dry, intact Neurologic: No focal deficits Laboratory Studies: Recent laboratory studies reviewed CBC: Results from last 7 days Lab Units 02/03/17 0350 WBC K/mcL 7.01 HGB g/dL 9.7* HCT % 28.5* PLT K/mcL 252 Results from last 7 days Lab Units 02/03/17 0350 02/02/17 0309 02/01/17 0551 HGB g/dL 9.7* 10.4* 10.5* Chem: Results from last 7 days Lab Units 02/03/17 0350 SODIUM mmol/L 132* POTASSIUM mmol/L 4.3 CHLORIDE mmol/L 97* BUN mg/dL 16 CREATININE mg/dL 0.53* CALCIUM mg/dL 8.1* TOTAL PROTEIN g/dL 5.1* ALK PHOS U/L 58 ALT U/L 31 AST U/L 19 GLUCOSE mg/dL 177* Results from last 7 days Lab Units 02/03/17 0350 02/02/17 0309 02/01/17 0552 CREATININE mg/dL 0.53* 0.45* 0.52* LFT's: Results from last 7 days Lab Units 02/03/17 0350 ALK PHOS U/L 58 BILIRUBIN TOTAL mg/dL <0.2 TOTAL PROTEIN g/dL 5.1* AST U/L 19 ALT U/L 31 Diagnostic Imaging: Recent diagnostic imaging/reports reviewed Ryan Licona MD PGY 3 02/03/2017 11:08 AM Associated attestation - Carlos Blackburn MD - 02/03/2017 1:26 PM TUTU have reviewed the notes, assessments, and/or procedures performed by resident, I concur with her/his documentation. I have seen and examined this patient on rounds. ROS performed All Negative Except HPI . I have reviewed the note written by the resident or FINGER BUFFS ASSEMBLER and concur with the findings / results / plan. The following were reviewed: labs, microbiology, pathology, radiology,cardiology, medications, transcriptions. Any addendums to care and plan are listed below. Doing well codie clear serous Continue current therapySherman, Marin T, DANE - 02/02/2017 3:17 PM EST Formatting of this note may be different from the original. Occupational Therapy OCCUPATIONAL THERAPY DAILY TREATMENT NOTE Occupational Therapy Assessment Body Structure and Function: Musculoskeletal impairment, Cardiopulmonary impairment Explain Impairments: s/p Whipple procedure;post op pain, abdominal precautions, decreased activity tolerance, stand balance, functional transfers Activities and Participation: Mobility limitation, Balance limitation and fall risk, ADL/IADL limitation Explain Limitations: self care, light IADLs, bed mobility,home/community mobility. modification of tasks with use of AE PRN to maximize safety/independence and adherence to precautions Environmental Factors: Family/caregiver support, Home situation Explain Environmental Factors: lives with in 1 story home with 4STE. uses rollator in community; unknown physical assist available Personal Factors: Awareness of own capacity and performance Explain Personal Factors: motivated for return to baseline. min cues for implementation of new abdominal precautions Rehab Potential: Excellent Skilled Therapy Needs After Discharge Anticipate Resolution of Current Assessment Limitations Including: Mechanical Barriers, Pain Are Skilled Therapy Services Needed After Discharge: Yes Intensity of Skilled Therapy: 2-3 days per week Anticipated Duration of Skilled Therapy: Duration 10 - 30 days DME Recommendation: Tub seat (spouse will obtain) DME Rationale: Patient's condition prevents him/her from accomplishing ADL without recommended equipment, Patient's condition creates an increased risk of safety hazard without recommended equipment Outcomes Measures Prior Function Daily Activity: Raw Score: 24 Prior Function Daily Activity % Impaired: 0% functionally impaired AM-PAC Daily Activity: Raw Score: 19 AM-PAC Daily Activity % Impaired: 42.80% functionally impaired Therapy Precautions Orthotic Devices: No Weight Bearing Status: WFL General Rehab Precautions: Fall risk, Abdominal Cognition Overall Cognitive Status: Within Functional Limits Arousal/Alertness: Appropriate responses to stimuli Orientation Level: Oriented X4 Executive functioning: Insight Safety Judgment: Good awareness of safety precautions Problem Solving: Able to problem solve independently Attention: Attends to quiet environment Hearing Status: WFL Social Interaction: Appropriate, Cooperative Comments: follows one step commands. spouse present. pt has increased muscle spasms in lower abdominthis session Skilled Intervention: pt is able to recall 3/3 abdominal prec. ADL/IADL Toileting : Supervision (lance care) Bed Mobility Skilled Intervention: (not observed) Functional Transfers Sit to Stand: Stand by assistance Toilet Transfers: Stand by assist Skilled Intervention: pt/spouse educated on use of energy conservation with reagrds to funcional mobiltiy. cue for paceing and walker management. pt with increased abdominal spasms this session, limiting walking balance. reviewed use of gait belt and walker for increased stability. Exercise Interventions Home Living Type of Home: House Home Layout: One level, Stairs to enter with rails (4 step entry) Bathroom Shower/Tub: Walk-in shower Home Equipment: (does not use device) Additional Comments: spouse unable to locate pts walker, unable to determine presence of wheels. neighbor to check if they have w/w for pt to borrow, family to notify staff. Prior Level of Function Level of [place]: Independent with ADLs and functional transfers, Independent with homemaking with ambulation Lives With: Spouse Vocational: Retired Comments: mows own yard, cleans his gutters, drives Past Medical History: Diagnosis Date ??? Arthritis ??? BPH (benign prostatic hyperplasia) ??? Cancer (HCC) skin cancer ??? Cataract ??? Chemotherapy adverse reaction 12/01/2016 has had 2 treatments-- getting port now. Had adverse reaction to zofran after first treatment ??? Chronic diarrhea current problem (07/21/16), stool specimen positive for blood ([facility]) per pt ??? Colon polyps [...] Surgeon: Kota Vences MD; Location: [facility] Main OR; Service: ??? COLONOSCOPY 2010 benign polyps found ??? COLONOSCOPY N/A 07/27/2016 Procedure: COLONOSCOPY; Surgeon: Kota Vences MD; Location: [facility] Endo; Service: ??? PROSTATE BIOPSY ??? SINUS SURGERY 2003 ??? WHIPPLE PROCEDURE N/A 01/24/2017 Procedure: WHIPPLE PROCEDURE; Surgeon: Tati Guillen MD; Location: [facility] Main OR; Service: For complete objective data, detailed plan of care and patient education refer to:OT EVALUATION flowsheet,OT TREATMENT flow sheet, patient Plan of Care, Plan of Care progress note, and Patient Education. This note stands as the current Discharge Summary upon patient discharge from the hospital or completion of Occupational Therapy Plan of Care.Kelly Landin, PT - 02/02/2017 3:04 PM ESTFormatting of this note may be different from the original. Physical Therapy PHYSICAL THERAPY DAILY TREATMENT NOTE Physical Therapy Assessment Body Structure and Function: Musculoskeletal impairment, Integumentary impairment, Cardiopulmonary impairment Explain Impairments: decreased activity tolerance, balance, new abdominal incision with abdominal precautions which modify functional mobility, generalized weakness. Activities and Participation: Mobility limitation, Balance limitation and fall risk Explain Limitations: gait/transfers/bed mobility/ stair climbing, activity tolerance, new abdominal precautions that modify how functional mobility occurs. Environmental Factors: Home situation, Family/caregiver support Explain Environmental Factors: 1 level home with 4 step entry, lives with Personal Factors: Awareness of own capacity and performance, Educational level Explain Personal Factors: follows commands without difficulty, motivated, engaged in rehab process, receptive to teaching. Rehab Potential: Good, For goals Skilled Therapy Needs After Discharge Anticipate Resolution of Current Assessment Limitations Including: Pain, Mechanical Barriers Are Skilled Therapy Services Needed After Discharge: Yes Intensity of Skilled Therapy: 2-3 days per week Anticipated Duration of Skilled Therapy: Duration 10 - 30 days DME Recommendation: None (own necessary DME) DME Rationale: Patient's condition creates an increased risk of safety hazard without recommended equipment Outcomes Measures Prior Function - Basic Mobility Raw Score: 24 Points Prior Function - Basic Mobility % Impaired: 0% functionally impaired AM-PAC - Basic Mobility Raw Score: 18 Points AM-PAC - Basic Mobility % Impaired: 40.47% functionally impaired Therapy Precautions Orthotic Devices: No Weight Bearing Status: WFL General Rehab Precautions: Fall risk, Abdominal Balance Sitting Balance - Static: Sits without support for more than 30 seconds (I) Sitting Balance - Dynamic: Moves / returns trunkal midpoint 1-2 inches in multiple planes (limited by abdominal pain) Standing Balance - Static: Supports self with more than 50% effort using upper extremity, requires therapist assisstance (supervision with wheeled walker) Standing Balance - Dynamic: Moves / returns trunkal midpoint 1-2 inches in multiple planes (SBA withwheeled walker) Skilled Intervention: Instructed upright posture and use of wheeled walker. Instructed increased weightbearing on LEs vs UEs. Bed Mobility Rolling: (deferred. up in chair before and after session) Skilled Intervention: Reinstructed abdominal precautions. Transfers Sit to Stand: Stand by assistance Bed to Chair: Stand by assistance Archival Studies Professor: Wheeled walker Skilled Intervention: Instructed hand placement and safety. Gait/Locomotion Gait Assistance: Stand by assistance Assistive Device: Wheeled walker Distance: 140 Feet Pattern: Over reliance on upper extremities, Forward flexed, Shuffle (decreased ravi and endurance) Stair Management Technique: (refused due to pain and fatigue) Skilled Intervention: Instructed posture, gait characteristics and use of wheeled walker. Home Living Type of Home: House Home Layout: One level, Stairs to enter with rails (4 step entry) Bathroom Shower/Tub: Walk-in shower Home Equipment: (does not use device) Additional Comments: spouse unable to locate pts walker, unable to determine presence of wheels. neighbor to check if they have w/w for pt to borrow, family to notify staff. Prior Level of Function Level of [place]: Independent with ADLs and functional transfers, Independent with homemaking with ambulation Lives With: Spouse Vocational: Retired Comments: mows own yard, cleans his gutters, drives Past Medical History: Diagnosis Date ??? Arthritis ??? BPH (benign prostatic hyperplasia) ??? Cancer (HCC) skin cancer ??? Cataract ??? Chemotherapy adverse reaction 12/01/2016 has had 2 treatments-- getting port now. Had adverse reaction to zofran after first treatment ??? Chronic diarrhea current problem (07/21/16), stool specimen positive for blood ([facility]) per pt ??? Colon polyps [...] Surgeon: Kota Vences MD; Location: [facility] Main OR; Service: ??? COLONOSCOPY 2010 benign polyps found ??? COLONOSCOPY N/A 07/27/2016 Procedure: COLONOSCOPY; Surgeon: Kota Venecs MD; Location: [facility] Endo; Service: ??? PROSTATE BIOPSY ??? SINUS SURGERY 2003 ??? WHIPPLE PROCEDURE N/A 01/24/2017 Procedure: WHIPPLE PROCEDURE; Surgeon: Tati Guillen MD; Location: [facility] Main OR; Service: For complete objective data, detailed plan of care and patient education refer to: PT EVALUATION flow sheet, PT TREATMENT flow sheet, patient Plan of Care, Plan of Care progress note, and Patient Education. This note stands as the current Discharge Summary upon patient discharge from the hospital or completion of Physical Therapy Plan of Care. Joleen Salazar RD - 02/02/2017 1:11 PM ESTNutrition Support Team Daily Progress Note ? Pertinent clinical issues: Drains 170 ml out last 24 hrs. On Full liquid diet. Per Surgery notes, plan is for Regular diet tomorrow if tolerates and drain does not have chyle leak, then D/C TPN on Sun. ?? Current weight: 72.8 kg % of wt change since admit:stable ?? TPN: 5% AA, 15% Dextrose @ 83 ml/hr with 250 ml 20% ILE daily TPN Provides: 1917 kcal and 100 g protein TPN Additives: 80 NaCl, 40 KCl, 10 KPhos, 8 CaGluc, 8 MgSO4, MVI, MTE, no insulin MIVF:NS @ 40 ml/hr ?? Pertinent labs: Na 130, Cl 96, Mg 1.9 FSBG and corrective insulin within the past 24h: 135-212 with 10 units corrective insulin. ?? TPN Changes:increase NaCl to 120. ?? Joleen Salazar RD, LD, [facility] [phone] - 02/02/2017 12:20 PM ESTNutrition Care Follow Up Monitoring and Evaluation: Pt did not receive >80% of estimated enteral nutrition Nutrition Diagnosis: Inadequate oral food/beverage intake??related to Whipple, post-op chyle leak as evidenced by need for parenteral nutrition support (updated). Not Resolved Nutrition Intervention/Prescription: Continue Parenteral Nutrition per NST Follow diet progression and tolerance as per surgery team Nutrition Goals: Tolerate diet advancement Start Date:02/02/2017 Expected End Date:02/06/2017 >50% po intake at meals Start Date:02/02/2017 Expected End Date:02/06/2017 Nutrition Education: Not appropriate due to clinical presentation Subjective: Pt alseep on visit Objective: Pertinent clinical issues:s /p pylorus-sparing Whipple, PV repair x2, GJ tube 01/24. TF was transitioned to nocturnal 01/30, and discontinued 01/31 due to chylous leak. TPN initiated 01/31. Diet slowlyprogressing. JPx1 Adult 2-in-1 TPN Diet Special; Liquid; Full Liquid Adult 2-in-1 TPN Tube feeding order: Impact Peptide 1.5 @ 65 ml/hr x12hrs via: Jtube ; d'cd 01/31 Tolerance established: no Recent intake: po not recorded Difficulty Chewing/Swallowing: No Current wt: 72.8 kg (160 lb 7.9 oz) Meds: SSI, protonix, reglan Labs: Na 130, Cl 96, Alb 2.8 BG range: 82-212 x24hrs Skin Integrity: Surgical incision GI fxn: +BM. G-tube clamped IVF: 0.9 @40ml/hr Nutrition risk level: high Estimated Energy Needs Total Energy Estimated Needs: 9675-9930 Method for Estimating Needs: 25-28 kcals/kg Total Protein Estimated Needs: 86-107g Method for Estimating Needs: 1.2-1.5g/kg Elizabeth Abreu RD, LD, [facility] Vocera: [phone] Ryan Licona MD - 02/02/2017 9:05 AM ESTFormatting of this note may be different from the original. Surgical Oncology Daily Progress Note Patient Name: Elbert Espinosa MR #: [id number] : 1940 Assessment and Plan: Pancreatic Adenocarcinoma S/p Whipple on 01/24 - AF/VSS - Drain with SS output this am - Clamp G-tube, unclamp prn -tolerating clears will advance to full liquids -plan is for regular diet tomorrow and TPN off on Sunday as long as he is tolerating it and the drain does not have chyle output - d/w Dr. Guillen Weekdays -5p [phone] Nights & Weekends [phone] Subjective: NAEO Patient tolerating clears Objective: Vital Signs BP 124/63 (BP Location: Left arm, Patient Position: Lying) Pulse 78 Temp 97.9 ??F (36.6 ??C) (Oral) Resp 16 Ht 5' 8 Wt 72.8 kg (160 lb 7.9 oz) SpO2 94% BMI 24.4 kg/m2 Constitutional Awake, alert, oriented. NAD Head Normocephalic, atraumatic Ears Grossly normal hearing, auricles without deformity Eyes EOMI, vision grossly intact Neck Trachea midline, soft Cardiovascular Hemodynamically stable, palpable pulses throughout Chest Non-labored breathing, equal chest rise Abdomen Soft,ATTP; non-distended; no peritoneal signs Drain Extremities Motor and sensory intact in all 4 extremities, no obvious deformity Skin Warm, dry, intact Neurologic: No focal deficits Laboratory Studies: Recent laboratory studies reviewed CBC: Results from last 7 days Lab Units 02/02/17 030 WBC K/mcL 7.84 HGB g/dL 10.4* HCT % 30.4* PLT K/mcL 274 Results from last 7 days Lab Units 02/02/17 03002/01/17 0551 01/31/17 0339 HGB g/dL 10.4* 10.5* 11.6* Chem: Results from last 7 days Lab Units 02/02/17 0309 SODIUM mmol/L 130* POTASSIUM mmol/L 4.1 CHLORIDE mmol/L 96* BUN mg/dL 12 CREATININE mg/dL 0.45* CALCIUM mg/dL 8.0* TOTAL PROTEIN g/dL 5.3* ALK PHOS U/L 61 ALT U/L 38 AST U/L 24 GLUCOSE mg/dL 175* Results from last 7 days Lab Units 02/02/17 03002/01/17 0552 01/31/17 0339 CREATININE mg/dL 0.45* 0.52* 0.57* LFT's: Results from last 7 days Lab Units 02/02/17 030 ALK PHOS U/L 61 BILIRUBIN TOTAL mg/dL 0.2 TOTAL PROTEIN g/dL 5.3* AST U/L 24 ALT U/L 38 Diagnostic Imaging: Recent diagnostic imaging/reports reviewed Ryan Licona MD PGY 3 02/02/2017 9:05 AM Gibran Denis MD - 02/02/2017 7:11 AM ESTFormatting of this note may be different from the original. [facility] In[facility] Progress Note 02/02/2017 Elbert Espinosa 1940 [id number] Assessment/Plan: Elbert Espinosa is a 76 y.o. male with a history of pancreatic cancer, COPD and tobacco abuse who presented to [facility] 01/23/2017 for planned whipple procedure per Dr. Guillen (surg/onc). AndrewChristoph was consulted for medical management. ?? 1. Pancreatic adenocarcinoma: Diagnosed 10/2014. Stage IIB, s/p 3 treatments of neoadjuvant chemotherapy, stopped early due to side effects. Dr. Guillen (surg/onc) performed whipple procedure 01/23/17. 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 Pl aced on TPN due to chyle leak 01/31/17 per surgery. 2. DM: New diagnosis and with hyperglycemia post op, covered with SSI. A1C 6.6% on 01/25/17. Has required minimal insulin coverage in hospital, suspect due to tube feeds. He is requesting to manage with diet control and will follow with PCP on discharge. 3. Hyponatremia: Baseline unclear. NA 131 on admission. Possibly SIADH due to above. Resolved with IVF/lasix post op, monitored. 4. COPD: Per history. Not on home 02. Not in acute exacerbation. Continued home inhalers. 5. Smoker: Active. Cessation advised. 6. DVT Prophylaxis: per surgery. ?? Thank you for allowing us to participate in the care of your patient. Do not hesitate to contact us with questions. Before 6 pm, please contact the provider listed in the treatment team. After 6 pm, please contact [phone] for any questions or concerns. ?? Patient Arrived From: Home Expected Disposition: Home with [facility]. Based on current clinical information, the expected discharge date is: TBD - depends on when can getlong term nutrition route secured. Subjective: Chart reviewed, including documentation from campaign consultant recommendations. Pulse ox reviewed. Discussed with RN and wrapper caser. No overnight events. No more diarrhea. Complains of heartburn this AM. Physical Exam: BP (!) 112/56 Pulse 74 Temp 97.5 ??F (36.4 ??C) (Oral) Resp 14 Ht 5' 8 Wt 72.8 kg (160 lb 7.9 oz) SpO2 96% BMI 24.4 kg/m2 General: NAD Eyes: EOMI ENT: neck supple, CVC in place Cardiovascular: Regular rate. Respiratory: Clear to auscultation Gastrointestinal: Incisional sites C/D/I, bandaged, drains in place Genitourinary: no suprapubic tenderness Musculoskeletal: No edema. Skin: warm, dry Neuro: Alert. Psych: Mood appropriate. Labs, Imaging and Studies reviewed: Lab Results Component Value Date GLUCOSE 175 (H) 02/02/2017 CALCIUM 8.0 (L) 02/02/2017 NA 130 (L) 02/02/2017 K 4.1 02/02/2017 CL 96 (L) 02/02/2017 BUN 12 02/02/2017 CREATININE 0.45 (L) 02/02/2017 Lab Results Component Value Date WBC 7.84 02/02/2017 HGB 10.4 (L) 02/02/2017 HCT 30.4 (L) 02/02/2017 MCV 95.3 02/02/2017 PLT 274 02/02/2017 Lab Results Component Value Date ALT 38 02/02/2017 AST 24 02/02/2017 ALKPHOS 61 02/02/2017 BILITOT 0.2 02/02/2017 Lab Results Component Value Date INR 1.1 02/02/2017 Aleshia Van, PT - 02/01/2017 3:47 PM ESTFormatting of this note may be different from the original. Physical Therapy PHYSICAL THERAPY DAILY TREATMENT NOTE Physical Therapy Assessment Body Structure and Function: Musculoskeletal impairment, Integumentary impairment, Cardiopulmonary impairment Explain Impairments: decreased activity tolerance, balance, new abdominal incision with abdominal precautions which modify functional mobility, generalized weakness. Activities and Participation: Mobility limitation, Balance limitation and fall risk Explain Limitations: gait/transfers/bed mobility/ stair climbing, activity tolerance, new abdominal precautions that modify how functional mobility occurs. Environmental Factors: Home situation, Family/caregiver support Explain Environmental Factors: 1 level home with 4 step entry, lives with Personal Factors: Awareness of own capacity and performance, Educational level Explain Personal Factors: follows commands without difficulty, motivated, engaged in rehab process, receptive to teaching. Rehab Potential: Good, For goals Skilled Therapy Needs After Discharge Anticipate Resolution of Current Assessment Limitations Including: Mechanical Barriers Are Skilled Therapy Services Needed After Discharge: Yes Intensity of Skilled Therapy: 2-3 days per week Anticipated Duration of Skilled Therapy: Duration 10 - 30 days DME Recommendation: None (pt and confirm now have borrowed ww at home) DME Rationale: Patient's condition creates an increased risk of safety hazard without recommended equipment Outcomes Measures Prior Function - Basic Mobility Raw Score: 24 Points Prior Function - Basic Mobility % Impaired: 0% functionally impaired AM-PAC - Basic Mobility Raw Score: 18 Points AM-PAC - Basic Mobility % Impaired: 40.47% functionally impaired Therapy Precautions Orthotic Devices: No Weight Bearing Status: WFL General Rehab Precautions: Fall risk, Abdominal Transfers Sit to Stand: Stand by assistance Archival Studies Professor: 1 person, Gait belt, Wheeled walker Skilled Intervention: verbal cues for stand to sit to safety turn all way around prior to sitting and to reach back with bilat. hands for chair with stand to sit. Gait/Locomotion Gait Assistance: Contact guard, Stand by assistance (no loss of balance noted) Assistive Device: Wheeled walker Distance: 100 Feet (seated rest break prior to stair negotiation erll360 ft more) Pattern: R decreased step length, L decreased step length Stair Management Technique: One rail R, Step to pattern (R rail up; L rail down) Stair Management Assistance: Stand by assistance, Contact guard (no loss of balance, safe technique) Skilled Intervention: verbal cues for safe use of ww. Instruction provided to pt and for safe stair negotiation. and for activity pacing throughout. Home Living Type of Home: House Home Layout: One level, Stairs to enter with rails (4 step entry) Bathroom Shower/Tub: Walk-in shower Home Equipment: (does not use device) Additional Comments: spouse unable to locate pts walker, unable to determine presence of wheels. neighbor to check if they have w/w for pt to borrow, family to notify staff. Prior Level of Function Level of [place]: Independent with ADLs and functional transfers, Independent with homemaking with ambulation Lives With: Spouse Vocational: Retired Comments: mows own yard, cleans his gutters, drives Past Medical History: Diagnosis Date ??? Arthritis ??? BPH (benign prostatic hyperplasia) ??? Cancer (HCC) skin cancer ??? Cataract ??? Chemotherapy adverse reaction 12/01/2016 has had 2 treatments-- getting port now. Had adverse reaction to zofran after first treatment ??? Chronic diarrhea current problem (07/21/16), stool specimen positive for blood ([facility]) per pt ??? Colon polyps [...] Surgeon: Kota Vences MD; Location: [facility] Main OR; Service: ??? COLONOSCOPY 2009 benign polyps found ??? COLONOSCOPY N/A 07/27/2016 Procedure: COLONOSCOPY; Surgeon: Kota Vences MD; Location: [facility] Endo; Service: ??? PROSTATE BIOPSY ??? SINUS SURGERY 2003 ??? WHIPPLE PROCEDURE N/A 01/24/2017 Procedure: WHIPPLE PROCEDURE; Surgeon: Tati Guillen MD; Location: [facility] Main OR; Service: For complete objective data, detailed plan of care and patient education refer to: PT EVALUATION flow sheet, PT TREATMENT flow sheet, patient Plan of Care, Plan of Care progress note, and Patient Education. This note stands as the current Discharge Summary upon patient discharge from the hospital or completion of Physical Therapy Plan of Care. Joleen Salazar, RD - 02/01/2017 12:53 PM EST Nutrition Support Team Daily Progress Note Pertinent clinical issues: Diarrhea improved. Drains 110 ml out last 24 hrs. Current weight: 72.8 kg % of wt change since admit:stable TPN: 5% AA, 15% Dextrose @ 40 ml/hr, goal 83 ml/hr with 250 ml 20% ILE daily TPN Provides: 1917 kcal and 100 g protein TPN Additives: 80 NaCl, 40 KCl, 10 KPhos, 8 CaGluc, 8 MgSO4, MVI, MTE, no insulin MIVF:NS @ 60 ml/hr Pertinent labs: Na 134 FSBG and corrective insulin within the past 24h: 76-159 with 12 units corrective insulin. TPN Changes:increase TPN to goal rate tonight. Joleen Salazar RD, SADI, [facility] [phone] Ronda Andersen, VISUAL DEVELOPER - 02/01/2017 11:09 AM ESTFormatting of this note may be different from the original. Occupational Therapy OCCUPATIONAL THERAPY DAILY TREATMENT NOTE Occupational Therapy Assessment Body Structure and Function: Musculoskeletal impairment Explain Impairments: s/p Whipple procedure;post op pain, abdominal precautions, decreased activity tolerance, stand balance, functional transfers Activities and Participation: Mobility limitation, ADL/IADL limitation Explain Limitations: self care, light IADLs, bed mobility,home/community mobility. modification of tasks with use of AE PRN to maximize safety/independence and adherence to precautions Environmental Factors: Home situation, Family/caregiver support Explain Environmental Factors: lives with in 1 story home with 4STE. uses rollator in community; unknown physical assist available Personal Factors: Awareness of own capacity and performance Explain Personal Factors: motivated for return to baseline. min cues for implementation of new abdominal precautions Rehab Potential: Excellent Skilled Therapy Needs After Discharge Anticipate Resolution of Current Assessment Limitations Including: Pain, Mechanical Barriers Are Skilled Therapy Services Needed After Discharge: Yes Intensity of Skilled Therapy: 2-3 days per week Anticipated Duration of Skilled Therapy: Duration 10 - 30 days DME Recommendation: Tub seat (spouse will obtain) DME Rationale: Patient's condition prevents him/her from accomplishing ADL without recommended equipment, Patient's condition creates an increased risk of safety hazard without recommended equipment Outcomes Measures Prior Function Daily Activity: Raw Score: 24 Prior Function Daily Activity % Impaired: 0% functionally impaired AM-PAC Daily Activity: Raw Score: 19 AM-PAC Daily Activity % Impaired: 42.80% functionally impaired Therapy Precautions Orthotic Devices: No Weight Bearing Status: WFL General Rehab Precautions: Abdominal, Fall risk Cognition Arousal/Alertness: Appropriate responses to stimuli Orientation Level: Oriented X4 Executive functioning: Min impairment, Insight (precautions) Safety Judgment: Decreased awareness of need for assistance, Decreased awareness of need for safety Problem Solving: Assistance required to generate solutions, Assistance required to implement solutions Attention: Attends to quiet environment Hearing Status: WFL Social Interaction: Appropriate, Cooperative Skilled Intervention: Reviewed abdominal precautions with pt and spouse,spouse has good understanding of precautions,pt requires vcs to recall. ADL/IADL Grooming : Supervision, Stand by assistance (standing at sink) UE Bathing : Stand by assistance LE Bathing : (education) UE Dressing: Min, Verbal Cueing (to don gown) Toileting : Stand by assistance Skilled Intervention: Provided vcs for compensatory techniques and energy conservation strategies tofacilitate toileting,LB dressing and bathing tasks. Challenged pt to apply abdominal precautions to dressing and bathing tasks with pt requiring explanation and demonstration of compensatory techniques,pt verbalized understanding. Bed Mobility Supine to Sit: Min Skilled Intervention: Pt declined logroll technique stating I have too much junk attached to me, educated pt on why the logroll is more appropriate in maintaining abdominal precautions. Pt would benefit from continued review of logroll technique. Spouse agreeable to encourage pt to utilize logroll te chnique. Functional Transfers Sit to Stand: Contact guard, Stand by assistance Bed to Chair Transfers: Stand by assist Toilet Transfers: Stand by assist Skilled Intervention: Provided min vcs for walker management to facilitate safe functional mobility.Pt able to navigate in/out of room with sba,no lob noted. Home Living Type of Home: House Home Layout: One level, Stairs to enter with rails (4 step entry) Bathroom Shower/Tub: Walk-in shower Home Equipment: (does not use device) Additional Comments: spouse unable to locate pts walker, unable to determine presence of wheels. neighbor to check if they have w/w for pt to borrow, family to notify staff. Prior Level of Function Level of [place]: Independent with ADLs and functional transfers, Independent with homemaking with ambulation Lives With: Spouse Vocational: Retired Comments: torstenws own yard, cleans his gutters, drives Past Medical History: Diagnosis Date ??? Arthritis ??? BPH (benign prostatic hyperplasia) ??? Cancer (HCC) skin cancer ??? Cataract ??? Chemotherapy adverse reaction 12/01/2016 has had 2 treatments-- getting port now. Had adverse reaction to zofran after first treatment ??? Chronic diarrhea current problem (07/21/16), stool specimen positive for blood ([facility]) per pt ??? Colon polyps [...] Surgeon: Kota Vences MD; Location: [facility] Main OR; Service: ??? COLONOSCOPY 2010 benign polyps found ??? COLONOSCOPY N/A 07/27/2016 Procedure: COLONOSCOPY; Surgeon: Kota Vences MD; Location: [facility] Endo; Service: ??? PROSTATE BIOPSY ??? SINUS SURGERY 2003 ??? WHIPPLE PROCEDURE N/A 01/24/2017 Procedure: WHIPPLE PROCEDURE; Surgeon: Tati Guillen MD; Location: [facility] Main OR; Service: For complete objective data, detailed plan of care and patient education refer to:OT EVALUATION flowsheet,OT TREATMENT flow sheet, patient Plan of Care, Plan of Care progress note, and Patient Education. This note stands as the current Discharge Summary upon patient discharge from the hospital or completion of Occupational Therapy Plan of Care.Tati Guillen MD - 02/01/2017 7:38 AM ESTDoing well ,AVSS On TPN for chyle leak, no tube feeds. Diarrhea improved. Wound clean and dry, CODIE with more SS output than chylous . Cont clears for comfort. Cont ambulation, IS, aggressive pulmonary toilet. Cont current carePatel, Gibran Landin MD - 02/01/2017 7:12 AM ESTFormatting of this note may be different from the original. [facility] Inpatient Progress Note 02/01/2017 Elbert Espinosa 1940 [id number] Assessment/Plan: Elbert Espinosa is a 76 y.o. male with a history of pancreatic cancer, COPD and tobacco abuse who presented to [facility] 01/23/2017 for planned whipple procedure per Dr. Guillen (surg/onc). [facility]. ?? 1. Pancreatic adenocarcinoma: Diagnosed 10/2014. Stage IIB, s/p 3 treatments of neoadjuvant chemotherapy, stopped early due to side effects. Dr. Guillen (surg/onc) performed whipple procedure 01/23/17. Advanced diet 12/5/17 per Surgery 01/30/17, but developed diarrhea and chylous output from CODIE drain. Pauly rdz recommended TPN, however patient refused PICC line placement so TPN being infused through mediport. 2. DM: New diagnosis and with hyperglycemia post op, covered with SSI. A1C 6.6% on 01/25/17. Has required minimal insulin coverage in hospital, suspect due to tube feeds. He is requesting to manage with diet control and will follow with PCP on discharge. 3. Hyponatremia: Baseline unclear. NA 131 on admission. Possibly SIADH due to above. Resolved with IVF/lasix post op, monitored. 4. COPD: Per history. Not on home 02. Not in acute exacerbation. Continued home inhalers. 5. Smoker: Active. Cessation advised. 6. DVT Prophylaxis: per surgery. ?? Thank you for allowing us to participate in the care of your patient. Do not hesitate to contact us with questions. Before 6 pm, please contact the provider listed in the treatment team. After 6 pm, please contact [phone] for any questions or concerns. ?? Patient Arrived From: Home Expected Disposition: Home with HHC. Based on current clinical information, the expected discharge date is: TBD - depends on when can getlong term nutrition route secured. Subjective: Chart reviewed, including documentation from campaign consultant recommendations. Pulse ox reviewed. Discussed with RN and wrapper caser. No overnight events. No more diarrhea. Denies complaints. Asking for HHC on discharge. Physical Exam: BP 118/67 (BP Location: Left arm, Patient Position: Lying) Pulse 85 Temp 98.5 ??F (36.9 ??C) (Oral) Resp 16 Ht 5' 8 Wt 72.8 kg (160 lb 7.9 oz) SpO2 92% BMI 24.4 kg/m2 General: NAD Eyes: EOMI ENT: neck supple, CVC in place Cardiovascular: Regular rate. Respiratory: Clear to auscultation Gastrointestinal: Incisional sites C/D/I, bandaged, drains in place Genitourinary: no suprapubic tenderness Musculoskeletal: No edema. Skin: warm, dry Neuro: Alert. Psych: Mood appropriate. Labs, Imaging and Studies reviewed: Lab Results Component Value Date GLUCOSE 139 (H) 01/31/2017 CALCIUM 8.6 01/31/2017 NA 135 01/31/2017 K 4.1 01/31/2017 CL 96 (L) 01/31/2017 BUN 20 01/31/2017 CREATININE 0.57 (L) 01/31/2017 Lab Results Component Value Date WBC 7.06 02/01/2017 HGB 10.5 (L) 02/01/2017 HCT 31.0 (L) 02/01/2017 MCV 95.1 02/01/2017 PLT 275 02/01/2017 Lab Results Component Value Date ALT 59 (H) 01/31/2017 AST 24 01/31/2017 ALKPHOS 67 01/31/2017 BILITOT 0.3 01/31/2017 Lab Results Component Value Date INR 1.1 01/31/2017 Chivo Shah MD - 01/31/2017 7:54 AM ESTFormatting of this note may be different from the original. 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 Guillen Weekdays 5a-5p [phone] Nights & Weekends [phone] Subjective: NAEO Objective: Vital Signs BP 142/67 (BP Location: Right arm, Patient Position: Lying) Pulse 76 Temp 98.1 ??F (36.7 ??C) (Oral) Resp (!) 22 Ht 5' 8 Wt 71.8 kg (158 lb 4.6 oz) SpO2 94% BMI 24.07 kg/m2 Constitutional Awake, alert, oriented. NAD Head Normocephalic, atraumatic Ears Grossly normal hearing, auricles without deformity Eyes EOMI, vision grossly intact Neck Trachea midline, soft Cardiovascular Hemodynamically stable, palpable pulses throughout Chest Non-labored breathing, equal chest rise Abdomen Soft,ATTP; non-distended; no peritoneal signs Drain Extremities Motor and sensory intact in all 4 extremities, no obvious deformity Skin Warm, dry, intact Neurologic: No focal deficits Laboratory Studies: Recent laboratory studies reviewed CBC: Results from last 7 days Lab Units 01/31/17 0339 WBC K/mcL 9.53 HGB g/dL 11.6* HCT % 33.8* PLT K/mcL 285 Results from last 7 days Lab Units 01/31/17 0339 01/30/17 0329 01/29/17417 HGB g/dL 11.6* 10.3* 10.7* Chem: Results from last 7 days Lab Units 01/31/17 0339 SODIUM mmol/L 135 POTASSIUM mmol/L 4.1 CHLORIDE mmol/L 96* BUN mg/dL 20 CREATININE mg/dL 0.57* CALCIUM mg/dL 8.6 TOTAL PROTEIN g/dL 6.1 ALK PHOS U/L 67 ALT U/L 59* AST U/L 24 GLUCOSE mg/dL 139* Results from last 7 days Lab Units 01/31/17 0339 01/30/1732801/29/17417 CREATININE mg/dL 0.57* 0.58* 0.57* LFT's: Results from last 7 days Lab Units 01/31/17 033 ALK PHOS U/L 67 BILIRUBIN TOTAL mg/dL 0.3 TOTAL PROTEIN g/dL 6.1 AST U/L 24 ALT U/L 59* Diagnostic Imaging: Recent diagnostic imaging/reports reviewed Chivo Shah MD MS PGY-1 01/31/2017 7:54 AM Pager: [phone] Associated attestation - Tati Guillen MD - 01/31/2017 12:12 PM ESTResident's H&P note reviewed. I personally examined this patient and reviewed all pertinent data. A thorough examination of remaining 10 point review of systems did not reveal any pertinent positive or negative findings except those described in the resident's note. Doing well, AVSS Tolerating clears and having bowel function. Unfortunately CODIE with chylous output today. Clears for comfort but pt will need PICC line and TPN for nutrition. Abd soft, ND,NT, wound clean and dry. CODIE with 230 ml output today. Discharge delayed, TPN today. Cont current carePatel, Gibran Landin MD - 01/31/2017 7:27 AM ESTFormatting of this note may be different from the original. [facility] Elbert Espinosa 1940 [id number] Assessment/Plan: Elbert Espinosa is a 76 y.o. male with a history of pancreatic cancer, COPD and tobacco abuse who presented to [facility] 01/23/2017 for planned whipple procedure per Dr. Guillen (surg/onc). [facility] was consulted for medical management. ?? 1. Pancreatic adenocarcinoma: Diagnosed 10/2014. Stage IIB, s/p 3 treatments of neoadjuvant chemotherapy, stopped early due to side effects. Dr. Guillen (surg/onc) completed whipple procedure 01/23/17. Post op management per surgery. Pain control with IV opiates. Advanced diet 01/30/17 per Surgery 01/30/17, but developed diarrhea. 2. DM: New diagnosis and with hyperglycemia post op, covered with SSI. A1C 6.6% on 01/25/17. Has required minimal insulin coverage in hospital, suspect due to tube feeds. He is requesting to manage with diet control and will follow with PCP on discharge. 3. Hyponatremia: Baseline unclear. NA 131 on admission. Possibly SIADH due to above. Resolved with IVF/lasix post op, monitored. 4. COPD: Per history. Not on home 02. Not in acute exacerbation. Continued home inhalers. 5. Smoker: Active. Cessation advised. 6. DVT Prophylaxis: per surgery. ?? Thank you for allowing us to participate in the care of your patient. Do not hesitate to contact us with questions. Before 6 pm, please contact the provider listed in the treatment team. After 6 pm, please contact [phone] for any questions or concerns. ?? Patient Arrived From: Home Expected Disposition: Home Based on current clinical information, the expected discharge date is: 02/02/17, per Primary Subjective: Chart reviewed, including documentation from campaign consultant recommendations. Pulse ox reviewed. Discussed with RN and wrapper caser. Patient notes developing diarrhea this morning. Says it was a stinky, sticky mess. He thinks its related to the tube feeds. Denies vomiting. Says he tolerated regular diet yesterday, had a turkey sandwich and banana. Denies abd pain. Physical Exam: BP 142/67 (BP Location: Right arm, Patient Position: Lying) Pulse 76 Temp 98.1 ??F (36.7 ??C) (Oral) Resp (!) 22 Ht 5' 8 Wt 71.8 kg (158 lb 4.6 oz) SpO2 94% BMI 24.07 kg/m2 General: NAD Eyes: EOMI ENT: neck supple, CVC in place Cardiovascular: Regular rate. Respiratory: Clear to auscultation Gastrointestinal: Incisional sites C/D/I, bandaged, drains in place Genitourinary: no suprapubic tenderness Musculoskeletal: No edema. Skin: warm, dry Neuro: Alert. Psych: Mood appropriate. Labs, Imaging and Studies reviewed: Lab Results Component Value Date GLUCOSE 139 (H) 01/31/2017 CALCIUM 8.6 01/31/2017 NA 135 01/31/2017 K 4.1 01/31/2017 CL 96 (L) 01/31/2017 BUN 20 01/31/2017 CREATININE 0.57 (L) 01/31/2017 Lab Results Component Value Date WBC 9.53 01/31/2017 HGB 11.6 (L) 01/31/2017 HCT 33.8 (L) 01/31/2017 MCV 95.2 01/31/2017 PLT 285 01/31/2017 Lab Results Component Value Date ALT 59 (H) 01/31/2017 AST 24 01/31/2017 ALKPHOS 67 01/31/2017 BILITOT 0.3 01/31/2017 Lab Results Component Value Date INR 1.1 01/31/2017 Davion Pike MD - 01/30/2017 11:29 AM ESTFormatting of this note may be different from the original. [facility] Inpatient Progress Note 01/30/2017 Elbert Espinosa 1940 [id number] Assessment/Plan: Elbert Espinosa is a 76 y.o. male with a history of tobacco abuse, COPD, BPH and pancreatic adenocarcinoma who presented to [facility] 01/23/2017 for planned whipple procedure per Dr. Guillen (surg/onc). [facility] consulted for medical management. ?? 1. Pancreatic adenocarcinoma: Diagnosed 10/2014. Stage IIB, s/p 3 treatments of neoadjuvant chemotherapy, stopped early due to side effects. Dr. Guillen (surg/onc) completed whipple procedure 01/23/17. Post op management per surgery. Pain control with IV opiates. Advance diet per Surgery, tolerating regular 01/30/17. 2. T2DM: With hyperglycemia post op, covered with SSI. A1C 6.6% on 01/25/17. This may worsen post whipple. Continued SSI inpatient. Requiring minimal coverage, 4-8u daily with tube feed, diet, and D5 fluids. Will eval discharge needs, hopeful for dietary modifications with PCP f/u. 3. Hyponatremia: Baseline unclear. NA 131 on admission. Possibly SIADH due to above. Resolved with IVF/lasix post op, monitored. 4. COPD: Per history. Not on home 02. Not in acute exacerbation. Continued home inhalers. 5. Smoker: Active. Cessation advised. 6. DVT Prophylaxis: per surgery. ?? Thank you for allowing us to participate in the care of your patient. Do not hesitate to contact us with questions. Before 6 pm, please contact the provider listed in the treatment team. After 6 pm, please contact [phone] for any questions or concerns. ?? Patient Arrived From: Home Expected Disposition: Home Based on current clinical information, the expected discharge date is: 02/02/17, per Primary Subjective: Chart reviewed, including documentation from campaign consultant recommendations. Pulse ox reviewed. Discussed with RN and wrapper caser. Doing well, having bowel function. Surgery managing drains and stents. Physical Exam: BP (!) 157/68 (BP Location: Left arm, Patient Position: Sitting) Pulse 79 Temp 97.8 ??F (36.6 ??C) (Oral) Resp 18 Ht 5' 8 Wt 71.8 kg (158 lb 4.6 oz) SpO2 92% BMI 24.07 kg/m2 General: NAD Eyes: EOMI ENT: neck supple, CVC in place Cardiovascular: Regular rate. Respiratory: Clear to auscultation Gastrointestinal: Incisional sites C/D/I, bandaged, drains in place Genitourinary: no suprapubic tenderness Musculoskeletal: No edema. Skin: warm, dry Neuro: Alert. Psych: Mood appropriate. Labs, Imaging and Studies reviewed: Lab Results Component Value Date GLUCOSE 139 (H) 01/30/2017 CALCIUM 8.3 (L) 01/30/2017 NA 135 01/30/2017 K 4.2 01/30/2017 CL 98 01/30/2017 BUN 17 01/30/2017 CREATININE 0.58 (L) 01/30/2017 Lab Results Component Value Date WBC 7.13 01/30/2017 HGB 10.3 (L) 01/30/2017 HCT 30.9 (L) 01/30/2017 MCV 96.0 01/30/2017 PLT 227 01/30/2017 Lab Results Component Value Date ALT 68 (H) 01/30/2017 AST 28 01/30/2017 ALKPHOS 57 01/30/2017 BILITOT 0.3 01/30/2017 Lab Results Component Value Date INR 1.1 01/30/2017 Idania Hay, PT - 01/30/2017 11:15 AM ESTFormatting of this note may be different from the original. Physical Therapy PHYSICAL THERAPY DAILY TREATMENT NOTE Physical Therapy Assessment Body Structure and Function: Musculoskeletal impairment, Integumentary impairment, Cardiopulmonary impairment Explain Impairments: decreased activity tolerance, balance, new abdominal incision with abdominal precautions which modify functional mobility, generalized weakness. Activities and Participation: Mobility limitation, Balance limitation and fall risk Explain Limitations: gait/transfers/bed mobility/ stair climbing, activity tolerance, new abdominal precautions that modify how functional mobility occurs. Environmental Factors: Home situation, Family/caregiver support Explain Environmental Factors: 1 level home with 4 step entry, lives with Personal Factors: Awareness of own capacity and performance, Educational level Explain Personal Factors: follows commands without difficulty, motivated, engaged in rehab process, receptive to teaching. Rehab Potential: Good, For goals Skilled Therapy Needs After Discharge Anticipate Resolution of Current Assessment Limitations Including: Mechanical Barriers Are Skilled Therapy Services Needed After Discharge: Yes Intensity of Skilled Therapy: 2-3 days per week Anticipated Duration of Skilled Therapy: Duration 10 - 30 days DME Recommendation: Wheeled walker (may be able to borrow from neighbor, family to update) DME Rationale: Patient's condition creates an increased risk of safety hazard without recommended equipment Outcomes Measures Prior Function - Basic Mobility Raw Score: 24 Points Prior Function - Basic Mobility % Impaired: 0% functionally impaired AM-PAC - Basic Mobility Raw Score: 16 Points AM-PAC - Basic Mobility % Impaired: 47.12% functionally impaired Therapy Precautions Orthotic Devices: No Weight Bearing Status: WFL General Rehab Precautions: Abdominal, Fall risk Bed Mobility Supine to Sit: (pt up in chair upon arrival) Sit to Supine: Contact guard (HOB raised. pivot performed, not log roll.) Skilled Intervention: verbal cues for safety. cues for log roll technique, spouse able to verbalize sequence. physical assist given as needed. Transfers Sit to Stand: Contact guard Skilled Intervention: verbal cues for safety. cues for hand placement and sequencing. physical assist given as needed Gait/Locomotion Gait Assistance: Contact guard Assistive Device: Wheeled walker Distance: 100 Feet Pattern: R decreased step length, L decreased step length, Over reliance on upper extremities (decreased speed. no overt LOB. no SOB) Skilled Intervention: verbal cues for safety. physical assist given as needed. professional judgement used for activity progression and tolerance. Home Living Type of Home: House Home Layout: One level, Stairs to enter with rails (4 step entry) Bathroom Shower/Tub: Walk-in shower Home Equipment: (does not use device) Additional Comments: spouse unable to locate pts walker, unable to determine presence of wheels. neighbor to check if they have w/w for pt to borrow, family to notify staff. Prior Level of Function Level of [place]: Independent with ADLs and functional transfers, Independent with homemaking with ambulation Lives With: Spouse Vocational: Retired Comments: mows own yard, cleans his gutters, drives Past Medical History: Diagnosis Date ??? Arthritis ??? BPH (benign prostatic hyperplasia) ??? Cancer (HCC) skin cancer ??? Cataract ??? Chemotherapy adverse reaction 12/01/2016 has had 2 treatments-- getting port now. Had adverse reaction to zofran after first treatment ??? Chronic diarrhea current problem (07/21/16), stool specimen positive for blood ([facility]) per pt ??? Colon polyps [...] Surgeon: Kota Vences MD; Location: [facility] Main OR; Service: ??? COLONOSCOPY 2010 benign polyps found ??? COLONOSCOPY N/A 07/27/2016 Procedure: COLONOSCOPY; Surgeon: Kota Vences MD; Location: [facility] Endo; Service: ??? PROSTATE BIOPSY ??? SINUS SURGERY 2003 ??? WHIPPLE PROCEDURE N/A 01/24/2017 Procedure: WHIPPLE PROCEDURE; Surgeon: Tati Guillen MD; Location: [facility] Main OR; Service: For complete objective data, detailed plan of care and patient education refer to: PT EVALUATION flow sheet, PT TREATMENT flow sheet, patient Plan of Care, Plan of Care progress note, and Patient Education. This note stands as the current Discharge Summary upon patient discharge from the hospital or completion of Physical Therapy Plan of Care. Marin Segovia, VISUAL DEVELOPER - 01/30/2017 11:02 AM ESTFormatting of this note may be different from the original. Occupational Therapy OCCUPATIONAL THERAPY DAILY TREATMENT NOTE Occupational Therapy Assessment Body Structure and Function: Musculoskeletal impairment Explain Impairments: s/p Whipple procedure;post op pain, abdominal precautions, decreased activity tolerance, stand balance, functional transfers Activities and Participation: Mobility limitation, ADL/IADL limitation Explain Limitations: self care, light IADLs, bed mobility,home/community mobility. modification of tasks with use of AE PRN to maximize safety/independence and adherence to precautions Environmental Factors: Home situation, Family/caregiver support Explain Environmental Factors: lives with in 1 story home with 4STE. uses rollator in community; unknown physical assist available Personal Factors: Awareness of own capacity and performance Explain Personal Factors: motivated for return to baseline. min cues for implementation of new abdominal precautions Rehab Potential: Excellent Skilled Therapy Needs After Discharge Anticipate Resolution of Current Assessment Limitations Including: Mechanical Barriers Are Skilled Therapy Services Needed After Discharge: Yes Intensity of Skilled Therapy: 2-3 days per week Anticipated Duration of Skilled Therapy: Duration 10 - 30 days DME Recommendation: Tub seat (may aquire when home) DME Rationale: Patient's condition prevents him/her from accomplishing ADL without recommended equipment, Patient's condition creates an increased risk of safety hazard without recommended equipment Outcomes Measures Prior Function Daily Activity: Raw Score: 24 Prior Function Daily Activity % Impaired: 0% functionally impaired AM-PAC Daily Activity: Raw Score: 19 AM-PAC Daily Activity % Impaired: 42.80% functionally impaired Therapy Precautions Orthotic Devices: No Weight Bearing Status: WFL General Rehab Precautions: Abdominal, Fall risk Cognition Overall Cognitive Status: Within Functional Limits Arousal/Alertness: Appropriate responses to stimuli Orientation Level: Oriented X4 Executive functioning: Sequencing, Insight, Min impairment Safety Judgment: Decreased awareness of need for safety Problem Solving: Assistance required to identify errors made Attention: Attends to quiet environment Hearing Status: WFL Social Interaction: Appropriate, Cooperative Comments: follows one step commands. spouse present during session Skilled Intervention: pt is able to recall 1/3 abdominal prec, with education provided for recall ofremaining. spouse is able to verbalize understanding of 3/3 prec, and sustainability coach pt. ADL/IADL LE Dressing: Min (pants) Skilled Intervention: instructed on use of energy conservation with adaptive tech to complete LB dressing. pt is able to understand and demo tech seated in chair to bre/doff pants, with minimal assistfrom spouse. reviewed use of energy conservation with regards to all ADL tasks for safety. Bed Mobility Skilled Intervention: (not observed. seated in chair pre/post session) Functional Transfers Skilled Intervention: (not observed. delegated to PT) Exercise Interventions Home Living Type of Home: House Home Layout: One level, Stairs to enter with rails (4 step entry) Bathroom Shower/Tub: Walk-in shower Home Equipment: (does not use device) Prior Level of Function Level of [place]: Independent with ADLs and functional transfers, Independent with homemaking with ambulation Lives With: Spouse Vocational: Retired Comments: mows own yard, cleans his gutters, drives Past Medical History: Diagnosis Date ??? Arthritis ??? BPH (benign prostatic hyperplasia) ??? Cancer (HCC) skin cancer ??? Cataract ??? Chemotherapy adverse reaction 12/01/2016 has had 2 treatments-- getting port now. Had adverse reaction to zofran after first treatment ??? Chronic diarrhea current problem (07/21/16), stool specimen positive for blood ([facility]) per pt ??? Colon polyps [...] Surgeon: Kota Vences MD; Location: [facility] Main OR; Service: ??? COLONOSCOPY 2010 benign polyps found ??? COLONOSCOPY N/A 07/27/2016 Procedure: COLONOSCOPY; Surgeon: Kota Vences MD; Location: [facility] Endo; Service: ??? PROSTATE BIOPSY ??? SINUS SURGERY 2003 ??? WHIPPLE PROCEDURE N/A 01/24/2017 Procedure: WHIPPLE PROCEDURE; Surgeon: Tati Guillen MD; Location: [facility] Main OR; Service: For complete objective data, detailed plan of care and patient education refer to:OT EVALUATION flowsheet,OT TREATMENT flow sheet, patient Plan of Care, Plan of Care progress note, and Patient Education. This note stands as the current Discharge Summary upon patient discharge from the hospital or completion of Occupational Therapy Plan of Care.Bebe Florence, RD - 01/30/2017 8:48 AM ESTFormatting of this note may be different from the original. Nutrition Care Follow Up Monitoring and Evaluation: Pt did not receive >80% of estimated enteral nutrition (working toward goal rate) Diet has been advanced and transitioning tube feed to nocturnal. Nutrition Diagnosis: Inadequate oral food/beverage intake related to Whipple as evidenced by need for enteral nutrition support. Not Resolved Nutrition Intervention: Encourage oral intake and monitor tolerance. Will monitor tolerance of nocturnal tube feed and re-evaluate as needed. Nutrition Prescription: Diet: chopped/NDD3 Oral nutrition supplement: n/a Tube Feeding: Impact Peptide 1.5 at 65cc/hr from 7p-7a to provide 780cc, 1170 kcal, 73g protein, 601cc fluid. Nutrition Goals: Pt will receive 80% of estimated enteral nutrition goal with plan to discontinue prior to DC. Oral intake >50% most meals Start Date:01/30/2017 Expected End Date:02/03/2017 Nutrition Education: No needs at this time Assessment: Pertinent clinical information: s/p pylorus-sparing Whipple. He is tolerating tube feed at goal rateand plan is to transition to nocturnal tube feed today with DC of tube feed prior to DC at the end of the week. Height: 5' 8 Current weight: 71.8 kg (158 lb 4.6 oz) Body mass index is 24.07 kg/(m^2). Wt Readings from Last 5 Encounters: 01/24/17 71.8 kg (158 lb 4.6 oz) 01/10/17 74.2 kg (163 lb 9.3 oz) 01/04/17 74.2 kg (163 lb 9.3 oz) 01/04/17 74.2 kg (163 lb 9.6 oz) 12/28/16 74.9 kg (165 lb 3.2 oz) Current diet order: Chopped/NDD3 Recent intake: he has his first meal on order (banana and iced tea) Tube feed: Impact Peptide 1.5 @ 50cc/hr 3 day tube feed average is 641cc/53.4% (has been working up toward goal) Current intake Likely does not meet estimated needs. Patient/family comments: Patient with no concerns upon visit. He is ready to eat but is planning to start out with a small meal. Difficulty Chewing/Swallowing: No GI Function: LBM 01/30 Recent Labs 01/30/17 0329 NA 135 K 4.2 BICARB 28 CL 98 GLUCOSE 139* BUN 17 CREATININE 0.58* MG 2.0 PHOS 3.7 Estimated Energy Needs Total Energy Estimated Needs: 0653-2949 Method for Estimating Needs: 25-28 kcals/kg Total Protein Estimated Needs: 86-107g Method for Estimating Needs: 1.2-1.5g/kg Bebe Florence RD,[facility] [phone] [place], [place] Dajuan - 01/30/2017 7:25 AM ESTFormatting of this note may be different from the original. Surgical Oncology Progress Note Assessment & Plan: Mr. Elbert Espinosa is a 76M with PMHx of GERD, COPD, BPH, tobacco use, umbilical hernia, and known pancreatic adenocarcinoma s/p 3 treatments of neoadjuvant chemotherapy (stopped early 2/2 side effects) who is s/p Whipple on 01/24 ??Pancreatic Adenocarcinoma - diet: clear liquid,TFs @ 50, goal is 50; will discuss diet advancement - HIVF - GI PPx: protonix - DVT PPx: lovenox - control nausea with zofran - will discuss DC blunt - Ingris with SS drainage, panc drain tied off - CODIE amylase < 3 on 01/27 and 01/29 - Path: 2.7 cm adenoCA T3N1M0 (Stage 2B), 4/ nodes, PD margin suspect for adenoCA, final SMA margin negative - awaiting increased BF Subjective: No N/V. Reports minimal flatus. Temp: [97.4 ??F (36.3 ??C)-99.2 ??F (37.3 ??C)] 97.8 ??F (36.6 ??C) Heart Rate: [70-86] 79 Resp: [14-20] 18 BP: (117-157)/(67-81) 157/68 I/O last 3 completed shifts: In: 905 [NG/GT:30] Out: 7165 [Urine:5750; Emesis/NG output:1220; Drains:195] Objective: Gen: NAD HEENT: MMM, EOMI CV: HDS Pulm: Symmetric chest rise, respirations unlabored ABD: S, ATTP, ND, wounds CDI, Pancreatic drain with no output, Gtube w/ bilious output : Blunt in place Extrem: warm, well perfused Wound: incisional sites C/D/I Neuro: no focal neurological deficits, answering questions appropriately Psych: affect appropriate Patient Active Problem List Diagnosis SNOMED CT(R) ??? 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 Chronic obstructive pulmonary disease (HCC) CHRONIC OBSTRUCTIVE LUNG DISEASE ??? Pure hypercholesterolemia PURE HYPERCHOLESTEROLEMIA ??? Abnormal PSA PROSTATE SPECIFIC ANTIGEN ABNORMAL ??? BPH with obstruction/lower urinary tract symptoms BENIGN PROSTATIC HYPERTROPHY WITH OUTFLOW OBSTRUCTION ??? Elevated PSA RAISED PROSTATE SPECIFIC ANTIGEN ??? Prostatitis, chronic CHRONIC PROSTATITIS ??? Malignant neoplasm of head of pancreas (HCC) MALIGNANT TUMOR OF HEAD OF PANCREAS ??? Encounter for antineoplastic chemotherapy PATIENT ENCOUNTER STATUS ??? Rash ERUPTION ??? Chemotherapy follow-up examination FOLLOW-UP STATUS ??? Postoperative infection POSTOPERATIVE INFECTION Dajuan Koroma MD PGY-4 01/30/2017 7:25 AM Associated attestation - Tati Guillen MD - 01/30/2017 7:35 AM ESTResident's H&P note reviewed. I personally examined this patient and reviewed all pertinent data. A thorough examination of remaining 10 point review of systems did not reveal any pertinent positive or negative findings except those described in the resident's note. Doing well ,AVSS Having bowel function, soft diet today. Tube feeds at goal, nocturnalize today. Labs reviewed and stable. Wound clean and dry, CODIE with SS output. Tie off pancreatic stent, CODIE amylase low x 2. Anticipate d/c home on Sunday, no tube feeds at that pointDavion Pike MD - 01/29/2017 1:30 PM ESTFormatting of this note may be different from the original. [facility] Inpatient Progress Note 01/29/2017 Elbert Espinosa 1940 [id number] Assessment/Plan: Elbert Espinosa is a 76 y.o. male with a history of tobacco abuse, COPD, BPH and pancreatic adenocarcinoma who presented to [facility] 01/23/2017 for planned whipple procedure per Dr. Guillen (surg/onc). [facility]. ?? 1. Pancreatic adenocarcinoma: Diagnosed 10/2014. Stage IIB, s/p 3 treatments of neoadjuvant chemotherapy, stopped early due to side effects. Dr. Guillen (surg/onc) completed whipple procedure 01/23/17. Post op management per surgery. Pain control with IV opiates. Advance diet per Surgery. 2. T2DM: With hyperglycemia post op, covered with SSI. A1C 6.6% on 01/25/17. This may worsen post whipple. Continued SSI inpatient. Requiring minimal coverage, 4-8u daily with tube feed and D5 fluids. Will eval discharge needs, hopeful for simply dietary modifications with PCP f/u. 3. Hyponatremia: Baseline unclear. NA 131 on admission. Suspect SIADH due to above and D5 0.45% saline. Getting PRN lasix doses for lower ext edema. Monitor, consider stopping fluids. 4. COPD: Per history. Not on home 02. Not in acute exacerbation. Continued home inhalers. 5. Smoker: Active. Cessation advised. 6. DVT Prophylaxis: per surgery. ?? Thank you for allowing us to participate in the care of your patient. Do not hesitate to contact us with questions. Before 6 pm, please contact the provider listed in the treatment team. After 6 pm, please contact [phone] for any questions or concerns. ?? Patient Arrived From: Home Expected Disposition: TBD Based on current clinical information, the expected discharge date is: TBD Subjective: Chart reviewed, including documentation from campaign consultant recommendations. Pulse ox reviewed. Discussed with RN and wrapper caser. Abdominal pain this morning, requesting IV dilaudid. Physical Exam: BP 117/67 (BP Location: Right arm, Patient Position: Sitting) Pulse 70 Temp 98 ??F (36.7 ??C) (Oral) Resp 16 Ht 5' 8 Wt 71.8 kg (158 lb 4.6 oz) SpO2 92% BMI 24.07 kg/m2 General: NAD Eyes: EOMI ENT: neck supple, CVC in place Cardiovascular: Regular rate. Respiratory: Clear to auscultation Gastrointestinal: Incisional sites C/D/I, bandaged, drains in place Genitourinary: no suprapubic tenderness Musculoskeletal: No edema. Skin: warm, dry Neuro: Alert. Psych: Mood appropriate. Labs, Imaging and Studies reviewed: Lab Results Component Value Date GLUCOSE 152 (H) 01/29/2017 CALCIUM 8.5 01/29/2017 NA 134 (L) 01/29/2017 K 4.6 01/29/2017 CL 96 (L) 01/29/2017 BUN 14 01/29/2017 CREATININE 0.57 (L) 01/29/2017 Lab Results Component Value Date WBC 7.59 01/29/2017 HGB 10.7 (L) 01/29/2017 HCT 31.7 (L) 01/29/2017 MCV 94.9 01/29/2017 PLT 217 01/29/2017 Lab Results Component Value Date ALT 92 (H) 01/29/2017 AST 39 01/29/2017 ALKPHOS 61 01/29/2017 BILITOT 0.4 01/29/2017 Lab Results Component Value Date INR 1.1 01/29/2017 Marin Segovia OTA - 01/29/2017 12:11 PM ESTFormatting of this note may be different from the original. Occupational Therapy OCCUPATIONAL THERAPY DAILY TREATMENT NOTE Occupational Therapy Assessment Body Structure and Function: Musculoskeletal impairment Explain Impairments: s/p Whipple procedure;post op pain, abdominal precautions, decreased activity tolerance, stand balance, functional transfers Activities and Participation: Mobility limitation, ADL/IADL limitation Explain Limitations: self care, light IADLs, bed mobility,home/community mobility. modification of tasks with use of AE PRN to maximize safety/independence and adherence to precautions Environmental Factors: Home situation, Family/caregiver support Explain Environmental Factors: lives with in 1 story home with 4STE. uses rollator in community; unknown physical assist available Personal Factors: Awareness of own capacity and performance Explain Personal Factors: motivated for return to baseline. min cues for implementation of new abdominal precautions Rehab Potential: Excellent Skilled Therapy Needs After Discharge Anticipate Resolution of Current Assessment Limitations Including: Mechanical Barriers Are Skilled Therapy Services Needed After Discharge: Yes Intensity of Skilled Therapy: 2-3 days per week Anticipated Duration of Skilled Therapy: Duration 10 - 30 days DME Recommendation: Tub seat (may aquire when home) DME Rationale: Patient's condition prevents him/her from accomplishing ADL without recommended equipment, Patient's condition creates an increased risk of safety hazard without recommended equipment Outcomes Measures Prior Function Daily Activity: Raw Score: 24 Prior Function Daily Activity % Impaired: 0% functionally impaired AM-PAC Daily Activity: Raw Score: 17 AM-PAC Daily Activity % Impaired: 50.11% functionally impaired Therapy Precautions Orthotic Devices: No General Rehab Precautions: Abdominal, Fall risk Cognition Overall Cognitive Status: Within Functional Limits Arousal/Alertness: Appropriate responses to stimuli Orientation Level: Oriented X4 Executive functioning: Sequencing Safety Judgment: Decreased awareness of need for safety Problem Solving: Assistance required to identify errors made Attention: Attends to quiet environment Hearing Status: WFL Social Interaction: Appropriate, Cooperative Comments: follows commands. spouse and grandson present session Skilled Intervention: spouse is able to recall 3/3 abdominal prec. pt is unable to recall from memory. educated pt on limiting bending, twisting, and lifting over 10#s to adhere to prec. pt is able to verbalize understanding. ADL/IADL Feeding: Dependent (feeding tube) LE Dressing: (reviewed tech) Skilled Intervention: reviewed different aspects of ADLs this session to increase adherence when home. reviewed with pt and spouse. provided visual demo on use of figure four tech to increase ease. pt/spouse are able to verbalize understanding, but does demo this session. educated pt on use of energy c onservation during tasks such as grooming and showering to increase safety. pt is able to verbalize understanding. Bed Mobility Skilled Intervention: not observed. pt in chair pre/post session. reviewd tech with pt and spouse for better carry over and adherence. provided visual demo on proper transition from side lying to sit. pt/spouse are able to verbalize understanding, but do not demo. Functional Transfers Skilled Intervention: functional mobiltiy delegated to PT. educated on use of gait belt to safety when home. Exercise Interventions Home Living Type of Home: House Home Layout: One level, Stairs to enter with rails (4 step entry) Bathroom Shower/Tub: Walk-in shower Home Equipment: (does not use device) Prior Level of Function Level of [place]: Independent with ADLs and functional transfers, Independent with homemaking with ambulation Lives With: Spouse Vocational: Retired Comments: mows own yard, cleans his gutters, drives Past Medical History: Diagnosis Date ??? Arthritis ??? BPH (benign prostatic hyperplasia) ??? Cancer (HCC) skin cancer ??? Cataract ??? Chemotherapy adverse reaction 12/01/2016 has had 2 treatments-- getting port now. Had adverse reaction to zofran after first treatment ??? Chronic diarrhea current problem (07/21/16), stool specimen positive for blood ([facility]) per pt ??? Colon polyps [...] Surgeon: Kota Vences MD; Location: [facility] Main OR; Service: ??? COLONOSCOPY 2010 benign polyps found ??? COLONOSCOPY N/A 07/27/2016 Procedure: COLONOSCOPY; Surgeon: Kota Vences MD; Location: [facility] Endo; Service: ??? PROSTATE BIOPSY ??? SINUS SURGERY 2003 ??? WHIPPLE PROCEDURE N/A 01/24/2017 Procedure: WHIPPLE PROCEDURE; Surgeon: Tati Guillen MD; Location: [facility] Main OR; Service: For complete objective data, detailed plan of care and patient education refer to:OT EVALUATION flowsheet,OT TREATMENT flow sheet, patient Plan of Care, Plan of Care progress note, and Patient Education. This note stands as the current Discharge Summary upon patient discharge from the hospital or completion of Occupational Therapy Plan of Care.Idania Hay, PT - 01/29/2017 12:04 PM ESTFormatting of this note may be different from the original. Physical Therapy PHYSICAL THERAPY DAILY TREATMENT NOTE Physical Therapy Assessment Body Structure and Function: Musculoskeletal impairment, Integumentary impairment, Cardiopulmonary impairment Explain Impairments: decreased activity tolerance, balance, new abdominal incision with abdominal precautions which modify functional mobility, generalized weakness. Activities and Participation: Mobility limitation, Balance limitation and fall risk Explain Limitations: gait/transfers/bed mobility/ stair climbing, activity tolerance, new abdominal precautions that modify how functional mobility occurs. Environmental Factors: Home situation, Family/caregiver support Explain Environmental Factors: 1 level home with 4 step entry, lives with Personal Factors: Awareness of own capacity and performance, Educational level Explain Personal Factors: follows commands without difficulty, motivated, engaged in rehab process, receptive to teaching. Rehab Potential: Good, For goals Skilled Therapy Needs After Discharge Anticipate Resolution of Current Assessment Limitations Including: Mechanical Barriers Are Skilled Therapy Services Needed After Discharge: Yes Intensity of Skilled Therapy: 2-3 days per week Anticipated Duration of Skilled Therapy: Duration 10 - 30 days DME Recommendation: Wheeled walker DME Rationale: Patient's condition creates an increased risk of safety hazard without recommended equipment Outcomes Measures Prior Function - Basic Mobility Raw Score: 24 Points Prior Function - Basic Mobility % Impaired: 0% functionally impaired AM-PAC - Basic Mobility Raw Score: 16 Points AM-PAC - Basic Mobility % Impaired: 47.12% functionally impaired Therapy Precautions Orthotic Devices: No General Rehab Precautions: Abdominal, Fall risk Bed Mobility Skilled Intervention: pt up in chair upon arrival and after session. Transfers Sit to Stand: Contact guard Archival Studies Professor: Wheeled walker, 1 person, Gait belt Skilled Intervention: verbal cues for safety. cues for hand placement and sequencing. physical assist given as needed. Gait/Locomotion Gait Assistance: Contact guard Assistive Device: Wheeled walker Distance: 300 Feet Pattern: R decreased step length, L decreased step length, Over reliance on upper extremities, Antalgic, Forward flexed (decreased speed. guarded. no LOB. no SOB. ) Skilled Intervention: verbal cues for safety. cues for w/w management. professional judgement usedfor activity progression and tolerance. physical assist given as needed. family to check walker athome to see if it has wheels, education given on benefit of 2w/w. spouse with rollator available ifneeded. Home Living Type of Home: House Home Layout: One level, Stairs to enter with rails (4 step entry) Bathroom Shower/Tub: Walk-in shower Home Equipment: (does not use device) Prior Level of Function Level of [place]: Independent with ADLs and functional transfers, Independent with homemaking with ambulation Lives With: Spouse Vocational: Retired Comments: manuel own yard, cleans his gutters, drives Past Medical History: Diagnosis Date ??? Arthritis ??? BPH (benign prostatic hyperplasia) ??? Cancer (HCC) skin cancer ??? Cataract ??? Chemotherapy adverse reaction 12/01/2016 has had 2 treatments-- getting port now. Had adverse reaction to zofran after first treatment ??? Chronic diarrhea current problem (07/21/16), stool specimen positive for blood ([facility]) per pt ??? Colon polyps [...] Surgeon: Kota Vences MD; Location: [facility] Main OR; Service: ??? COLONOSCOPY 2010 benign polyps found ??? COLONOSCOPY N/A 07/27/2016 Procedure: COLONOSCOPY; Surgeon: Kota Vences MD; Location: [facility] Endo; Service: ??? PROSTATE BIOPSY ??? SINUS SURGERY 2003 ??? WHIPPLE PROCEDURE N/A 01/24/2017 Procedure: WHIPPLE PROCEDURE; Surgeon: Tati Guillen MD; Location: [facility] Main OR; Service: For complete objective data, detailed plan of care and patient education refer to: PT EVALUATION flow sheet, PT TREATMENT flow sheet, patient Plan of Care, Plan of Care progress note, and Patient Education. This note stands as the current Discharge Summary upon patient discharge from the hospital or completion of Physical Therapy Plan of Care. Virginia Lawrence RN - 01/29/2017 12:02 PM ESTProvided encouragement for ambulation as pt really wants to go home soon. Will revisit.Dajuan Koroma MD - 01/29/2017 7:50 AM ESTFormatting of this note may be different from the original. Surgical Oncology Progress Note Assessment & Plan: Mr. Elbert Espinosa is a 76M with PMHx of GERD, COPD, BPH, tobacco use, umbilical hernia, and known pancreatic adenocarcinoma s/p 3 treatments of neoadjuvant chemotherapy (stopped early 2/2 side effects) who is s/p Whipple on 01/24 ??Pancreatic Adenocarcinoma - diet: clear liquid,TFs @ 40, goal is 50 - IVF: D5 0.45 with 20K @50 - GI PPx: protonix - DVT PPx: lovenox - control nausea with zofran - blunt for strict I's & O's - Ingris with SS drainage, Pancreatic drain with blue output from dye - responded well to lasix yesterday; will discuss repeating given patient is currently net negative - awaiting BF - CODIE amylase < 3 on 01/27 --> will repeat - Path: 2.7 cm adenoCA T3N1M0 (Stage 2B), 4/11 nodes, PD margin suspect for adenoCA, final SMA margin negative Subjective: No N/V. Reports ambulating. No flatus or BM. Tolerating clears Temp: [97.7 ??F (36.5 ??C)-98.6 ??F (37 ??C)] 98.5 ??F (36.9 ??C) Heart Rate: [73-83] 75 Resp: [14-18] 16 BP: (124-158)/(66-76) 133/66 I/O last 3 completed shifts: In: 3382.6 [I.V.:1768.6; NG/GT:100] Out: 9240 [Urine:6920; Emesis/NG output:0; Drains:250] Objective: Gen: NAD HEENT: MMM, EOMI CV: HDS Pulm: Symmetric chest rise, respirations unlabored ABD: S, ATTP, ND, wounds CDI, Pancreatic drain with no output, Gtube w/ bilious output : Blunt in place Extrem: warm, well perfused Wound: incisional sites C/D/I Neuro: no focal neurological deficits, answering questions appropriately Psych: affect appropriate Patient Active Problem List Diagnosis SNOMED CT(R) ??? 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 Chronic obstructive pulmonary disease (HCC) CHRONIC OBSTRUCTIVE LUNG DISEASE ??? Pure hypercholesterolemia PURE HYPERCHOLESTEROLEMIA ??? Abnormal PSA PROSTATE SPECIFIC ANTIGEN ABNORMAL ??? BPH with obstruction/lower urinary tract symptoms BENIGN PROSTATIC HYPERTROPHY WITH OUTFLOW OBSTRUCTION ??? Elevated PSA RAISED PROSTATE SPECIFIC ANTIGEN ??? Prostatitis, chronic CHRONIC PROSTATITIS ??? Malignant neoplasm of head of pancreas (HCC) MALIGNANT TUMOR OF HEAD OF PANCREAS ??? Encounter for antineoplastic chemotherapy PATIENT ENCOUNTER STATUS ??? Rash ERUPTION ??? Chemotherapy follow-up examination FOLLOW-UP STATUS ??? Postoperative infection POSTOPERATIVE INFECTION Dajuan Koroma MD PGY-4 01/29/2017 7:50 AM Associated attestation - Tati Guillen MD - 01/29/2017 1:16 PM ESTResident's H&P note reviewed. I personally examined this patient and reviewed all pertinent data. A thorough examination of remaining 10 point review of systems did not reveal any pertinent positive or negative findings except those described in the resident's note. Doing well ,AVSS Ambulating the hallways this am. Labs reviewed and stable. Wound clean and dry, CODIE with SS output. Clamp Gtube 3/4 hrs, unclamp at night. Will tie off pancreatic stent tomorrow. Advance tube feeds to goal, clears for comfort. Minimal flatus, will await more bowel function to advance diet and clamp Gtube more. Cont current care, anticipate d/c home Sunday without tube feeds.Tai Morrison Jr., MD - 01/28/2017 1:35 PM ESTFormatting of this note may be different from the original. [facility] Inpatient Progress Note 01/28/2017 Elbert Espinosa 1940 [id number] Assessment/Plan: Elbert Espinosa is a 76 y.o. male with a history of tobacco abuse, COPD, BPH and pancreatic adenocarcinoma who presented to [facility] 01/23/2017 for planned whipple procedure per Dr. Guillen (surg/onc). [facility] consulted for medical management. ?? 1. Pancreatic adenocarcinoma: Diagnosed 10/2014. Stage IIB, s/p 3 treatments of neoadjuvant chemotherapy, stopped early due to side effects. Dr. Guillen (surg/onc) completed whipple procedure 01/23/17. Post op management per surgery. Pain control with epidural opiates. Advance diet per Surgery. 2. T2DM: With hyperglycemia post op, covered with SSI. A1C 6.6% on 01/25/17. This may worsen post whipple. Continued SSI inpatient. Requiring minimal coverage, 4-8u daily with tube feed and D5 fluids. Will eval discharge needs, hopeful for simply dietary modifications with PCP f/u. 3. Hyponatremia: Baseline unclear. NA 131 on admission. Suspect SIADH due to above and D5 0.45% saline. Getting PRN lasix doses for lower ext edema. Monitor, consider stopping fluids. 4. COPD: Per history. Not on home 02. Not in acute exacerbation. Continued home inhalers. 5. Smoker: Active. Cessation advised. 6. DVT Prophylaxis: per surgery. ?? Thank you for allowing us to participate in the care of your patient. Do not hesitate to contact us with questions. Before 6 pm, please contact the provider listed in the treatment team. After 6 pm, please contact [phone] for any questions or concerns. ?? Patient Arrived From: Home Expected Disposition: TBD Based on current clinical information, the expected discharge date is: TBD Subjective: No new complaints. Na still a little low but on D5 0.45% and getting intermittent lasix. He does have lower ext edema and no signs of dehydration so agree with the lasix as needed. Consider stopping D5. Physical Exam: BP 134/72 (BP Location: Right arm, Patient Position: Sitting) Pulse 79 Temp 97.9 ??F (36.6 ??C) (Axillary) Resp 16 Ht 5' 8 Wt 71.8 kg (158 lb 4.6 oz) SpO2 97% BMI 24.07 kg/m2 General: NAD Eyes: EOMI ENT: neck supple, CVC in place Cardiovascular: Regular rate. Respiratory: Clear to auscultation Gastrointestinal: Incisional sites C/D/I, bandaged, drains in place Genitourinary: no suprapubic tenderness Musculoskeletal: No edema. Skin: warm, dry Neuro: Alert. Psych: Mood appropriate. Labs, Imaging and Studies reviewed: Lab Results Component Value Date GLUCOSE 136 (H) 01/28/2017 CALCIUM 8.0 (L) 01/28/2017 NA 131 (L) 01/28/2017 K 4.2 01/28/2017 CL 93 (L) 01/28/2017 BUN 10 01/28/2017 CREATININE 0.53 (L) 01/28/2017 Lab Results Component Value Date WBC 6.22 01/28/2017 HGB 9.5 (L) 01/28/2017 HCT 29.1 (L) 01/28/2017 MCV 97.3 01/28/2017 PLT 181 01/28/2017 Lab Results Component Value Date ALT 107 (H) 01/28/2017 AST 40 01/28/2017 ALKPHOS 49 01/28/2017 BILITOT 0.5 01/28/2017 Lab Results Component Value Date INR 1.2 (H) 01/28/2017 Ryan Licona MD - 01/28/2017 9:13 AM ESTFormatting of this note may be different from the original. Surgical Oncology Progress Note Assessment & Plan: Mr. Elbert Espinosa is a 76M with PMHx of GERD, COPD, BPH, tobacco use, umbilical hernia, and known pancreatic adenocarcinoma s/p 3 treatments of neoadjuvant chemotherapy (stopped early 2/2 side effects) who is s/p Whipple on 01/24 ??Pancreatic Adenocarcinoma - diet: clear liquid,TFs @ 30, will advance to 40,goal is 50 - IVF: D5 0.45 with 20K @ 75 mL/h, will decrease - GI PPx: protonix - DVT PPx: lovenox - control pain with Epidural,under better control today - control nausea with zofran - blunt for strict I's & O's -Abdomen is soft ATTP, ND, coverlets in place, Ingris with SS drainage, Pancreatic drain with blue output from dye - responded well to lasix yesterday - awaiting BF -CODIE amylase <3 Subjective: No N/V. Reports ambulating. No flatus or BM. Tolerating clears Temp: [97.5 ??F (36.4 ??C)-98.9 ??F (37.2 ??C)] 97.5 ??F (36.4 ??C) Heart Rate: [65-85] 81 Resp: [14-16] 16 BP: (114-163)/(65-83) 143/65 I/O last 3 completed shifts: In: 3478.5 [I.V.:2837.5; NG/GT:80] Out: 3810 [Urine:2120; Emesis/NG output:1350; Drains:340] I/O this shift: In: 346 Out: - Objective: Gen: NAD HEENT: MMM, EOMI CV: HDS Pulm: Symmetric chest rise, respirations unlabored ABD: S, ATTP, ND, wounds CDI, Pancreatic drain with no output, Gtube w/ bilious output : Blunt in place Extrem: warm, well perfused Wound: incisional sites C/D/I, no gross blood, coverlets over wounds Neuro: no focal neurological deficits, answering questions appropriately Psych: affect appropriate Patient Active Problem List Diagnosis SNOMED CT(R) ??? 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 Chronic obstructive pulmonary disease (HCC) CHRONIC OBSTRUCTIVE LUNG DISEASE ??? Pure hypercholesterolemia PURE HYPERCHOLESTEROLEMIA ??? Abnormal PSA PROSTATE SPECIFIC ANTIGEN ABNORMAL ??? BPH with obstruction/lower urinary tract symptoms BENIGN PROSTATIC HYPERTROPHY WITH OUTFLOW OBSTRUCTION ??? Elevated PSA RAISED PROSTATE SPECIFIC ANTIGEN ??? Prostatitis, chronic CHRONIC PROSTATITIS ??? Malignant neoplasm of head of pancreas (HCC) MALIGNANT TUMOR OF HEAD OF PANCREAS ??? Encounter for antineoplastic chemotherapy PATIENT ENCOUNTER STATUS ??? Rash ERUPTION ??? Chemotherapy follow-up examination FOLLOW-UP STATUS ??? Postoperative infection POSTOPERATIVE INFECTION Ryan Licona MD PGY-3 01/28/2017 9:13 AM Associated attestation - Tati Guillen MD - 01/28/2017 12:35 PM ESTResident's H&P note reviewed. I personally examined this patient and reviewed all pertinent data. A thorough examination of remaining 10 point review of systems did not reveal any pertinent positive or negative findings except those described in the resident's note. Cont current Kianna Marks RN - 01/28/2017 8:28 AM ESTFormatting of this note may be different from the original. Anesthesia Progress Note 4 Days Post-Op Procedure(s): WHIPPLE PROCEDURE Epidural/Nerve Block Catheter 01/24/17 (Active) Reassessment Unchd 01/28/2017 4:32 AM Epidural Sign Above Bed Yes 01/27/2017 8:30 PM Site Assessment Dry;Intact;Other (comment) 01/27/2017 8:30 PM Motor Assessment Able to raise pelvis;Able to raise right leg;Able to raise left leg 01/27/2017 8:30PM Sensory Assessment No numbness;No tingling 01/27/2017 8:30 PM Line Status Infusing 01/27/2017 8:30 PM Dressing Type Transparent;Gauze 01/27/2017 8:30 PM Dressing Status Clean;Dry;Intact 01/27/2017 8:30 PM Dressing Change Due 01/31/17 01/27/2017 7:57 AM Number of days:4 Port A Cath Power Port Right Chest (Active) Reassessment Unchd 01/28/2017 6:50 AM Access Date 01/23/17 01/27/2017 7:57 AM Access Time 1314 01/23/2017 1:12 PM Accessed by: Gris Meneses RN 01/23/2017 1:12 PM Size (Gauge) 19 G 01/23/2017 1:12 PM Needle Length 0.75 inches 01/23/2017 1:12 PM Site Assessment Clean;Dry;Intact 01/27/2017 8:30 PM Line Status Flushed 01/28/2017 4:32 AM Line Intervention Flushed;Alcohol cap 01/28/2017 4:32 AM Dressing Type Transparent 01/27/2017 8:30 PM Dressing Status Clean;Dry;Intact 01/27/2017 8:30 PM Dressing Change Due 01/30/17 01/27/2017 7:57 AM Flush Performed Yes 01/27/2017 7:57 AM Line Necessity Reviewed? Y 01/27/2017 7:57 AM Line Necessity Yes, meets criteria 01/24/2017 8:00 PM Line Necessity Reviewed With sicu 01/24/2017 8:00 PM Number of days: CVC Double Lumen 01/23/17 Right Internal jugular (Active) Reassessment Unchd 01/28/2017 6:50 AM Site Assessment Clean;Dry;Intact 01/28/2017 4:32 AM Lumen 1 Status Blood return noted 01/28/2017 4:32 AM Lumen 2 Status Capped;Blood return noted 01/27/2017 8:30 PM Line Intervention Flushed;Alcohol cap 01/28/2017 4:32 AM CVP Waveform Appropriate waveforms 01/26/2017 6:44 PM Pressurized Line Care Zeroed and calibrated 01/26/2017 6:44 PM Dressing Type Transparent 01/28/2017 4:32 AM Dressing Status Clean;Dry;Intact;Changed;Transparent;Removed 01/28/2017 4:32 AM Dressing Intervention Dressing changed 01/28/2017 4:32 AM Dressing Change Due 01/31/17 01/27/2017 7:57 AM Line Necessity Reviewed? Y 01/27/2017 7:57 AM Line Necessity Yes, meets criteria 01/27/2017 7:57 AM Line Necessity Reviewed With sicu 01/25/2017 8:00 PM Number of days:5 Assessment / Plan Pain control: adequate Mr. Espinosa questions answered / anesthesia plan accepted: - Catheter removed, tip intact. Site clean and dry. No erythema or drainage. (01/28/2017 8:02 AM) - Analgesics per primary service Subjective Pain at rest: 0/10 Pain with movement: 3/10 and 2/10 Pain location: incision Experiencing: itching (treated with nubain) Denies: upper extremity weakness, lower extremity weakness, nausea/vomiting, difficulty breathing, headaches, neck stiffness/pain or back pain Objective Elbert Espinosa is well-appearing, in no acute distress and comfortable. He is alert and oriented toperson, place, situation and time. The catheter dressing is intact, no erythema and clean/dry. is taking an anticoagulant (am dose held). Findings: vital signs stable, afebrile, no motor block, sensory deficit (As appropriate for epidural), no paresthesias and moving all extremities Hypotension: no Pain management: adequate Nausea / vomiting: no Temp: [36.4 ??C (97.5 ??F)-37.2 ??C (98.9 ??F)] 36.4 ??C (97.5 ??F) Heart Rate: [65-85] 81 Resp: [14-16] 16 BP: (114-163)/(65-83) 143/65 Associated attestation - Tati Gracia MD - 01/28/2017 10:22 AM TUTU have personally seen and examined the patient. I have reviewed the note and concur with the documentation of Elbert Espinosa. Davion Pike MD - 01/27/2017 10:48 AM ESTFormatting of this note may be different from the original. [facility] Inpatient Progress Note 01/27/2017 Elbert Espinosa 1940 [id number] Assessment/Plan: Elbert Espinosa is a 76 y.o. male with a history of tobacco abuse, COPD, BPH and pancreatic adenocarcinoma who presented to [facility] 01/23/2017 for planned whipple procedure per Dr. Guillen (surg/onc). [facility] consulted for medical management. ?? 1. Pancreatic adenocarcinoma: Diagnosed 10/2014. Stage IIB, s/p 3 treatments of neoadjuvant chemotherapy, stopped early due to side effects. Dr. Guillen (surg/onc) completed whipple procedure 01/23/17. Post op management per surgery. Pain control with epidural opiates. Advance diet per Surgery. 2. T2DM: With hyperglycemia post op, covered with SSI. A1C 6.6% on 01/25/17. This may worsen post whipple. Continued SSI inpatient. Will eval discharge needs, hopeful for simply dietary modifications with PCP f/u. 3. Hyponatremia: Baseline unclear. NA 131 on admission. Suspect SIADH due to above. Resolved with IVF. 4. COPD: Per history. Not on home 02. Not in acute exacerbation. Continued home inhalers. 5. Smoker: Active. Cessation advised. 6. DVT Prophylaxis: per surgery. ?? Thank you for allowing us to participate in the care of your patient. Do not hesitate to contact us with questions. Before 6 pm, please contact the provider listed in the treatment team. After 6 pm, please contact [phone] for any questions or concerns. ?? Patient Arrived From: Home Expected Disposition: TBD Based on current clinical information, the expected discharge date is: TBD Subjective: Chart reviewed, including documentation from campaign consultant recommendations. Pulse ox reviewed. Discussed with RN and wrapper caser. Doing well, tolerating sips of clears. Pain controlled with epidural. Physical Exam: BP 128/72 (BP Location: Left arm, Patient Position: Lying) Pulse 66 Temp 97.8 ??F (36.6 ??C) (Axillary) Resp 16 Ht 5' 8 Wt 71.8 kg (158 lb 4.6 oz) SpO2 99% BMI 24.07 kg/m2 General: NAD Eyes: EOMI ENT: neck supple, CVC in place Cardiovascular: Regular rate. Respiratory: Clear to auscultation Gastrointestinal: Incisional sites C/D/I, bandaged, drains in place Genitourinary: no suprapubic tenderness Musculoskeletal: No edema. Skin: warm, dry Neuro: Alert. Psych: Mood appropriate. Labs, Imaging and Studies reviewed: Lab Results Component Value Date GLUCOSE 142 (H) 01/27/2017 CALCIUM 8.2 (L) 01/27/2017 NA 133 (L) 01/27/2017 K 3.8 01/27/2017 CL 93 (L) 01/27/2017 BUN 14 01/27/2017 CREATININE 0.62 (L) 01/27/2017 Lab Results Component Value Date WBC 8.88 01/27/2017 HGB 9.6 (L) 01/27/2017 HCT 29.3 (L) 01/27/2017 MCV 96.4 01/27/2017 PLT 190 01/27/2017 Lab Results Component Value Date ALT 184 (H) 01/27/2017 AST 91 (H) 01/27/2017 ALKPHOS 51 01/27/2017 BILITOT 0.7 01/27/2017 Lab Results Component Value Date INR 1.2 (H) 01/27/2017 Mary Dunne RN - 01/27/2017 8:51 AM ESTFormatting of this note may be different from the original. Anesthesia Progress Note 3 Days Post-Op Procedure(s): WHIPPLE PROCEDURE Epidural/Nerve Block Catheter 01/24/17 (Active) Reassessment Unchd 01/27/2017 6:45 AM Epidural Sign Above Bed Yes 01/27/2017 7:57 AM Site Assessment Clean;Dry;Intact 01/27/2017 7:57 AM Motor Assessment Able to raise pelvis;Able to raise right leg;Able to raise left leg 01/27/2017 7:57AM Sensory Assessment No numbness;No tingling 01/27/2017 12:40 AM Line Status Infusing 01/27/2017 12:40 AM Dressing Type Transparent 01/27/2017 12:40 AM Dressing Status Dry;Intact;Clean;Transparent 01/27/2017 12:40 AM Dressing Change Due 01/31/17 01/26/2017 4:00 PM Number of days:3 Port A Cath Power Port Right Chest (Active) Reassessment Unchd 01/27/2017 6:45 AM Access Date 01/23/17 01/27/2017 7:57 AM Access Time 1314 01/23/2017 1:12 PM Accessed by: Gris Meneses RN 01/23/2017 1:12 PM Size (Gauge) 19 G 01/23/2017 1:12 PM Needle Length 0.75 inches 01/23/2017 1:12 PM Site Assessment Clean;Dry;Intact 01/27/2017 7:57 AM Line Status Blood return noted 01/27/2017 7:57 AM Line Intervention Flushed 01/27/2017 7:57 AM Dressing Type Transparent 01/27/2017 7:57 AM Dressing Status Clean;Dry;Intact 01/27/2017 7:57 AM Dressing Change Due 01/30/17 01/27/2017 7:57 AM Flush Performed Yes 01/27/2017 7:57 AM Line Necessity Reviewed? Y 01/27/2017 7:57 AM Line Necessity Yes, meets criteria 01/24/2017 8:00 PM Line Necessity Reviewed With sicu 01/24/2017 8:00 PM Number of days: CVC Double Lumen 01/23/17 Right Internal jugular (Active) Reassessment Unchd 01/27/2017 6:45 AM Site Assessment Clean;Dry;Intact 01/27/2017 7:57 AM Lumen 1 Status Infusing;Blood return noted 01/27/2017 7:57 AM Lumen 2 Status Capped;Infusing 01/27/2017 7:57 AM Line Intervention Flushed 01/27/2017 7:57 AM CVP Waveform Appropriate waveforms 01/26/2017 6:44 PM Pressurized Line Care Zeroed and calibrated 01/26/2017 6:44 PM Dressing Type Transparent 01/27/2017 7:57 AM Dressing Status Clean;Dry;Intact 01/27/2017 7:57 AM Dressing Intervention Dressing reinforced 01/27/2017 12:40 AM Dressing Change Due 01/31/17 01/27/2017 7:57 AM Line Necessity Reviewed? Y 01/27/2017 7:57 AM Line Necessity Yes, meets criteria 01/27/2017 7:57 AM Line Necessity Reviewed With sicu 01/25/2017 8:00 PM Number of days:4 Assessment / Plan Pain control: adequate Mr. Espinosa questions answered / anesthesia plan accepted: - Continue current therapy (hydromorphone 0.02 mg/mL with bupivacaine 0.0625% at a rate of 8 mL/hr) - Hold anitcoagulant / antiplatelet on 01/28/2017 for possible epidural removal in the A.M. Subjective Pain at rest: 2/10 Pain with movement: 4/10 Pain location: incision - burning Denies: upper extremity weakness, lower extremity weakness, itching, nausea/vomiting, difficulty breathing, headaches, neck stiffness/pain or back pain Objective Elbert Espinosa is well-appearing and in no acute distress. He is alert and oriented to person, place, situation and time. The catheter dressing is intact, no erythema and clean/dry. Mr. Espinosa is taking an anticoagulant - lovenox. Findings: vital signs stable, afebrile, no motor block, sensory deficit (As appropriate for epidural), no paresthesias and moving all extremities Hypotension: no Pain management: adequate Nausea / vomiting: no Temp: [36.4 ??C (97.5 ??F)-37.1 ??C (98.8 ??F)] 36.6 ??C (97.8 ??F) Heart Rate: [66-96] 66 Resp: [11-24] 16 BP: (93-143)/(49-72) 128/72 Associated attestation - Adithya Valverde MD - 01/27/2017 9:09 AM TUTU have personally seen and examined the patient. I have reviewed the note and concur with the documentation of Elbert Espinosa. Ryan Licona MD - 01/27/2017 6:57 AM ESTFormatting of this note may be different from the original. Surgical Oncology Progress Note Assessment & Plan: Mr. Elbert Espinosa is a 76M with PMHx of GERD, COPD, BPH, tobacco use, umbilical hernia, and known pancreatic adenocarcinoma s/p 3 treatments of neoadjuvant chemotherapy (stopped early 2/2 side effects) who is s/p Whipple on 01/24 ??Pancreatic Adenocarcinoma - diet: clear liquid,TFs @ 20, will advance - IVF: D5 0.45 with 20K @ 75 mL/h - GI PPx: protonix - DVT PPx: lovenox - control pain with Epidural,under better control today - control nausea with zofran - blunt for strict I's & O's -Abdomen is soft ATTP, ND, coverlets in place, Ingris with SS drainage, Pancreatic drain with blue output from dye - responded well to lasix yesterday - awaiting BF -Will discuss clamping G tube -Amylase from ingris drain today Subjective: No N/V. Reports ambulating. No flatus or BM Temp: [97.5 ??F (36.4 ??C)-98.8 ??F (37.1 ??C)] 98.1 ??F (36.7 ??C) Heart Rate: [72-96] 80 Resp: [11-24] 18 BP: (93-143)/(49-69) 143/69 Arterial Line BP: (135-142)/(33-36) 135/33 I/O last 3 completed shifts: In: 5546.9 [I.V.:3837.2; NG/GT:20; IV Piggyback:1343] Out: 3730 [Urine:2725; Emesis/NG output:790; Drains:215] I/O this shift: In: 1386.9 [I.V.:1068.9; NG/GT:50] Out: 730 [Urine:500; Emesis/NG output:50; Drains:180] Objective: Gen: NAD HEENT: MMM, EOMI CV: HDS Pulm: Symmetric chest rise, respirations unlabored ABD: S, ATTP, ND, wounds CDI, Pancreatic drain with no output, Gtube w/ bilious output : Blunt in place Extrem: warm, well perfused Wound: incisional sites C/D/I, no gross blood, coverlets over wounds Neuro: no focal neurological deficits, answering questions appropriately Psych: affect appropriate Patient Active Problem List Diagnosis SNOMED CT(R) ??? 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 Chronic obstructive pulmonary disease (HCC) CHRONIC OBSTRUCTIVE LUNG DISEASE ??? Pure hypercholesterolemia PURE HYPERCHOLESTEROLEMIA ??? Abnormal PSA PROSTATE SPECIFIC ANTIGEN ABNORMAL ??? BPH with obstruction/lower urinary tract symptoms BENIGN PROSTATIC HYPERTROPHY WITH OUTFLOW OBSTRUCTION ??? Elevated PSA RAISED PROSTATE SPECIFIC ANTIGEN ??? Prostatitis, chronic CHRONIC PROSTATITIS ??? Malignant neoplasm of head of pancreas (HCC) MALIGNANT TUMOR OF HEAD OF PANCREAS ??? Encounter for antineoplastic chemotherapy PATIENT ENCOUNTER STATUS ??? Rash ERUPTION ??? Chemotherapy follow-up examination FOLLOW-UP STATUS ??? Postoperative infection POSTOPERATIVE INFECTION Ryan Licona MD PGY-4 01/27/2017 6:57 AM Associated attestation - Tati Guillen MD - 01/27/2017 1:34 PM ESTResident's H&P note reviewed. I personally examined this patient and reviewed all pertinent data. A thorough examination of remaining 10 point review of systems did not reveal any pertinent positive or negative findings except those described in the resident's note. Cont Current care CODIE amylase <3 Increase tube feeds.Shaina Williamson OT - 01/26/2017 5:58 PM ESTFormatting of this note may be different from the original. Occupational Therapy OCCUPATIONAL THERAPY DAILY TREATMENT NOTE Occupational Therapy Assessment Body Structure and Function: Musculoskeletal impairment, Cardiopulmonary impairment Explain Impairments: s/p Whipple procedure;post op pain, abdominal precautions, decreased activity tolerance, stand balance, functional transfers Activities and Participation: Mobility limitation, Balance limitation and fall risk, ADL/IADL limitation Explain Limitations: self care, light IADLs, bed mobility,home/community mobility. modification of tasks with use of AE PRN to maximize safety/independence and adherence to precautions Environmental Factors: Home situation, Family/caregiver support Explain Environmental Factors: lives with in 1 story home with 4STE. uses rollator in community; unknown physical assist available Personal Factors: Awareness of own capacity and performance Explain Personal Factors: motivated for return to baseline. min cues for implementation of new abdominal precautions Rehab Potential: Excellent Skilled Therapy Needs After Discharge Anticipate Resolution of Current Assessment Limitations Including: Pain, Mechanical Barriers Are Skilled Therapy Services Needed After Discharge: Yes Intensity of Skilled Therapy: 2-3 days per week Anticipated Duration of Skilled Therapy: Duration 10 - 30 days DME Recommendation: Tub seat DME Rationale: Patient's condition prevents him/her from accomplishing ADL without recommended equipment, Patient's condition creates an increased risk of safety hazard without recommended equipment, Unreasonable time frame to complete ADL without recommended equipment, Patient will require increased level of care without recommended equipment Outcomes Measures Prior Function Daily Activity: Raw Score: 24 Prior Function Daily Activity % Impaired: 0% functionally impaired AM-PAC Daily Activity: Raw Score: 16 AM-PAC Daily Activity % Impaired: 53.32% functionally impaired Therapy Precautions Orthotic Devices: No General Rehab Precautions: Fall risk, Abdominal Cognition Arousal/Alertness: Appropriate responses to stimuli Orientation Level: Oriented X4 Executive functioning: Min impairment, Insight Safety Judgment: Decreased awareness of need for assistance, Decreased awareness of need for safety Problem Solving: Assistance required to generate solutions Attention: Attends to quiet environment Hearing Status: WFL Social Interaction: Cooperative, Appropriate ADL/IADL Grooming : Supervision, Contact guard (CG forstanding component ) Toileting : Min (simulated ) Skilled Intervention: Reviewed abdominal precautions with ADL tasks , Pt unable to recall this day - grooming completed standing at sink Min lean to R min VC and tactile cues to maintain midline - Pt able to maintain standing balance without hand support /therapist providing CGA - Min VC to sequence walker use in bathroom , cues to keep walker front of self - Pt completed simulated toiletting ,ableto achieve functional reach for pericare ,Min A for clothing management - Cues kathleen avoid twisting to maintain abdominal precautions Bed Mobility Skilled Intervention: Seated beg/end of session Functional Transfers Sit to Stand: Contact guard Bed to Chair Transfers: Contact Guard (W/W) Toilet Transfers: Contact Guard Skilled Intervention: Min VC for proper hand placement on W/W and to use grab bar and chair to control descent - Cues to pace self with functional ambulation - Exercise Interventions Home Living Type of Home: House Home Layout: One level, Stairs to enter with rails (4 step entry) Bathroom Shower/Tub: Walk-in shower Home Equipment: (does not use device) Prior Level of Function Level of [place]: Independent with ADLs and functional transfers, Independent with homemaking with ambulation Lives With: Spouse Vocational: Retired Comments: torstenws own yard, cleans his gutters, drives Past Medical History: Diagnosis Date ??? Arthritis ??? BPH (benign prostatic hyperplasia) ??? Cancer (HCC) skin cancer ??? Cataract ??? Chemotherapy adverse reaction 12/01/2016 has had 2 treatments-- getting port now. Had adverse reaction to zofran after first treatment ??? Chronic diarrhea current problem (07/21/16), stool specimen positive for blood ([facility]) per pt ??? Colon polyps [...] Surgeon: Kota Vences MD; Location: [facility] Main OR; Service: ??? COLONOSCOPY 2010 benign polyps found ??? COLONOSCOPY N/A 07/27/2016 Procedure: COLONOSCOPY; Surgeon: Kota Vences MD; Location: [facility] Endo; Service: ??? PROSTATE BIOPSY ??? SINUS SURGERY 2004 ??? WHIPPLE PROCEDURE N/A 01/24/2017 Procedure: WHIPPLE PROCEDURE; Surgeon: Tati Guillen MD; Location: [facility] Main OR; Service: For complete objective data, detailed plan of care and patient education refer to:OT EVALUATION flowsheet,OT TREATMENT flow sheet, patient Plan of Care, Plan of Care progress note, and Patient Education. This note stands as the current Discharge Summary upon patient discharge from the hospital or completion of Occupational Therapy Plan of Care.Alyssa Callahan, DIGITAL CONTENT SPECIALIST - 01/26/2017 5:39 PM ESTFormatting of this note may be different from the original. Physical Therapy PHYSICAL THERAPY DAILY TREATMENT NOTE Physical Therapy Assessment Body Structure and Function: Musculoskeletal impairment, Integumentary impairment, Cardiopulmonary impairment Explain Impairments: decreased activity tolerance, balance, new abdominal incision with abdominal precautions which modify functional mobility, generalized weakness. Activities and Participation: Mobility limitation, Balance limitation and fall risk Explain Limitations: gait/transfers/bed mobility/ stair climbing, activity tolerance, new abdominal precautions that modify how functional mobility occurs. Environmental Factors: Home situation, Family/caregiver support Explain Environmental Factors: 1 level home with 4 step entry, lives with Personal Factors: Awareness of own capacity and performance, Educational level Explain Personal Factors: follows commands without difficulty, motivated, engaged in rehab process, receptive to teaching. Rehab Potential: Good, For goals Skilled Therapy Needs After Discharge Anticipate Resolution of Current Assessment Limitations Including: Mechanical Barriers Are Skilled Therapy Services Needed After Discharge: Yes Intensity of Skilled Therapy: 2-3 days per week Anticipated Duration of Skilled Therapy: Duration 10 - 30 days DME Recommendation: None Outcomes Measures Prior Function - Basic Mobility Raw Score: 24 Points Prior Function - Basic Mobility % Impaired: 0% functionally impaired AM-PAC - Basic Mobility Raw Score: 18 Points AM-PAC - Basic Mobility % Impaired: 40.47% functionally impaired Therapy Precautions Orthotic Devices: No General Rehab Precautions: Abdominal, Fall risk (2 drains, epidural line, PEG) Balance Sitting Balance - Static: (Supervision) Sitting Balance - Dynamic: (SBA) Standing Balance - Static: (SBA with wheeled walker) Standing Balance - Dynamic: (CGA with wheeled walker) Skilled Intervention: Instructed Patient to facilitate scapular retraction and hip extension to improve overall upright posture in standing within boundaries of wheeled walker. Bed Mobility Skilled Intervention: Pt seated pre/post session, Reviewed Log roll transfer which Pt states compliance, but did not want to perform at this time. Transfers Sit to Stand: Stand by assistance, Contact guard Stand Pivot Transfers: Contact guard Archival Studies Professor: Wheeled walker, 1 person, Gait belt Skilled Intervention: Verbal cues provided to facilitate safe UE placement on arms of chair/grab barfor improved push off/reach back. Gait/Locomotion Gait Assistance: Contact guard, Stand by assistance Assistive Device: Wheeled walker Distance: 150 Feet (multiple standing rest breaks) Pattern: Step through, R decreased step length, L decreased step length, Over reliance on upper extremities, Forward flexed, Antalgic Skilled Intervention: Instructed Patient to perform heel/toe sequence for improved gait pattern withcues to maintain elevated gaze and hip extension for improved posture. Educated Patient on pursed lip breathing techniques and instructed to perform throughout gait trial for improved energy conservation. Exercise Seated Exercises: LAQ, marches, heel/toe raises x 3 reps each LE Skilled Intervention: Instructed Patient to perform seated LE exercise while in chair to maintain joint integrity/strength throughout. Home Living Type of Home: House Home Layout: One level, Stairs to enter with rails (4 step entry) Bathroom Shower/Tub: Walk-in shower Home Equipment: (does not use device) Prior Level of Function Level of [place]: Independent with ADLs and functional transfers, Independent with homemaking with ambulation Lives With: Spouse Vocational: Retired Comments: torstenws own yard, cleans his gutters, drives Past Medical History: Diagnosis Date ??? Arthritis ??? BPH (benign prostatic hyperplasia) ??? Cancer (HCC) skin cancer ??? Cataract ??? Chemotherapy adverse reaction 12/01/2016 has had 2 treatments-- getting port now. Had adverse reaction to zofran after first treatment ??? Chronic diarrhea current problem (07/21/16), stool specimen positive for blood ([facility]) per pt ??? Colon polyps [...] Surgeon: Kota Vences MD; Location: [facility] Main OR; Service: ??? COLONOSCOPY 2010 benign polyps found ??? COLONOSCOPY N/A 07/27/2016 Procedure: COLONOSCOPY; Surgeon: Kota Vences MD; Location: [facility] Endo; Service: ??? PROSTATE BIOPSY ??? SINUS SURGERY 2003 ??? WHIPPLE PROCEDURE N/A 01/24/2017 Procedure: WHIPPLE PROCEDURE; Surgeon: Tati Guillen MD; Location: [facility] Main OR; Service: For complete objective data, detailed plan of care and patient education refer to: PT EVALUATION flow sheet, PT TREATMENT flow sheet, patient Plan of Care, Plan of Care progress note, and Patient Education. This note stands as the current Discharge Summary upon patient discharge from the hospital or completion of Physical Therapy Plan of Care. Kaylie Mccloud, RN - 01/26/2017 1:13 PM ESTCOMPLEX DISCHARGE Date: 01/26/2017 Time: 1:13 PM Attempted to meet with both patient and spouse at bedside, after attempting to present self in room,noticed both patient and spouse resting/sleeping. Will need follow up on dispo plan, therapy recs 2-3 and tub seat. Patient not medically ready for d/c, hopeful transfer to stepdown soon. Await bowel function, remains with ingris and pancreatic drains, epidural, NPO with TF (GJ tube). Undetermined dispo plan, will need follow up on recs and dispo plan/needs, therapy anticipates hopeful progression. Cancer navigator following. 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) Type of Residence: Private residence ([facility], [address]) Prior to Admission Home Care Services: No Current Home Equipment: Oxygen (through [place] [facility]; 2.5 L nc @ [facility]) Insurance Coverage for Prescriptions: Yes Anticipated Discharge Plan Anticipated HME: Tub/Shower chair (recommende) Anticipated Home Care Needs: Home health care, None (therapy recs 2-3; with hopeful progression possno dc needs) Potential for Readmission Potential for Readmission: Yes Potential for Readmission Reason: LACE 13; cancer s/p whipple Discharge Readiness Expected Discharge Date: 02/01/17 [facility] Disposition D/C Disposition: Home Agency/Destination: Home Home Care Needs : Undetermined (possible hhc needs, hopeful progression, therapy recs 2-3) HME: Undetermined (tub seat recommended ) Transportation Type: Davion Wyatt MD - 01/26/2017 1:12 PM ESTFormatting of this note may be different from the original. [facility] Inpatient Progress Note 01/26/2017 Elbert Espinosa 1940 [id number] Assessment/Plan: Elbert Espinosa is a 76 y.o. male with a history of tobacco abuse, COPD, BPH and pancreatic adenocarcinoma who presented to [facility] 01/23/2017 for planned whipple procedure per Dr. Guillen (surg/onc). [facility]. ?? 1. Pancreatic adenocarcinoma: Diagnosed 10/2014. Stage IIB, s/p 3 treatments of neoadjuvant chemotherapy, stopped early due to side effects. Dr. Guillen (surg/onc) completed whipple procedure 01/23/17. Post op management per surgery. Pain control with epidural opiates. Advance diet per Surgery. 2. T2DM: With hyperglycemia post op, covered with SSI. A1C 6.6% on 01/25/17. This may worsen post whipple. Continued SSI inpatient. Will eval discharge needs, hopeful for simply dietary modifications with PCP f/u. 3. Hyponatremia: Baseline unclear. NA 131 on admission. Suspect SIADH due to above. Resolved with IVF. 4. COPD: Per history. Not on home 02. Not in acute exacerbation. Continued home inhalers. 5. Smoker: Active. Cessation advised. 6. DVT Prophylaxis: per surgery. ?? Thank you for allowing us to participate in the care of your patient. Do not hesitate to contact us with questions. Before 6 pm, please contact the provider listed in the treatment team. After 6 pm, please contact [phone] for any questions or concerns. ?? Patient Arrived From: Home Expected Disposition: TBD Based on current clinical information, the expected discharge date is: TBD Subjective: Chart reviewed, including documentation from campaign consultant recommendations. Pulse ox reviewed. Discussed with RN and wrapper caser. Seen in SICU, relayed diagnosis of diabetes. Physical Exam: BP 100/67 Pulse 96 Temp 98.3 ??F (36.8 ??C) (Oral) Resp 17 Ht 5' 8 Wt 71.8 kg (158 lb 4.6 oz) SpO2 98% BMI 24.07 kg/m2 General: NAD Eyes: EOMI ENT: neck supple, CVC in place Cardiovascular: Regular rate. Respiratory: Clear to auscultation Gastrointestinal: Incisional sites C/D/I, bandaged, drains in place Genitourinary: no suprapubic tenderness Musculoskeletal: No edema. Skin: warm, dry Neuro: Alert. Psych: Mood appropriate. Labs, Imaging and Studies reviewed: Lab Results Component Value Date GLUCOSE 135 (H) 01/26/2017 CALCIUM 8.4 01/26/2017 NA 137 01/26/2017 K 3.8 01/26/2017 CL 101 01/26/2017 BUN 14 01/26/2017 CREATININE 0.53 (L) 01/26/2017 Lab Results Component Value Date WBC 10.38 01/26/2017 HGB 9.8 (L) 01/26/2017 HCT 29.5 (L) 01/26/2017 MCV 95.8 01/26/2017 PLT 188 01/26/2017 Lab Results Component Value Date ALT 254 (H) 01/26/2017 AST 235 (H) 01/26/2017 ALKPHOS 44 01/26/2017 BILITOT 0.3 01/26/2017 Lab Results Component Value Date INR 1.3 (H) 01/26/2017 Virginia Lawrence RN - 01/26/2017 10:14 AM ESTIntroduction to self, role, and resources. Resources include genetic pamphlet, integrative medicine, support services, cancer wellness, and community resources. Participated in supportive listening regarding pain mgmt, gradual recovery, dypsnea after coughing. Reinforced tx plan in place and splinting when coughing. Offered massage, pt is not interested at this time. Visit kept breif due to fatigue. Will revisit. [place] and journal provided.Kianna Higgins RN - 01/26/2017 8:50 AM EST Formatting of this note may be different from the original. Anesthesia Progress Note 2 Days Post-Op Procedure(s): WHIPPLE PROCEDURE Epidural/Nerve Block Catheter 01/24/17 (Active) Reassessment Unchd 01/26/2017 6:00 AM Epidural Sign Above Bed Yes 01/25/2017 8:00 PM Site Assessment Clean;Intact;Dry 01/25/2017 8:00 PM Motor Assessment Able to raise pelvis;Able to raise right leg;Able to raise left leg 01/25/2017 8:00 PM Sensory Assessment No numbness;No tingling 01/25/2017 8:00 PM Line Status Infusing 01/25/2017 8:00 PM Dressing Type Transparent 01/25/2017 8:00 PM Dressing Status Clean;Dry;Intact;Occlusive;Transparent 01/25/2017 8:00 PM Dressing Change Due 01/31/17 01/25/2017 8:00 PM Number of days:2 Port A Cath Power Port Right Chest (Active) Reassessment Unchd 01/26/2017 6:00 AM Access Date 01/23/17 01/23/2017 1:12 PM Access Time 1314 01/23/2017 1:12 PM Accessed by: Gris Meneses RN 01/23/2017 1:12 PM Size (Gauge) 19 G 01/23/2017 1:12 PM Needle Length 0.75 inches 01/23/2017 1:12 PM Site Assessment Clean;Dry;Intact 01/25/2017 8:00 PM Line Status Capped 01/25/2017 8:00 PM Line Intervention Flushed;Alcohol cap;Cap changed 01/25/2017 8:00 PM Dressing Type Transparent 01/25/2017 8:00 PM Dressing Status Clean;Dry;Intact;Occlusive;Transparent 01/25/2017 8:00 PM Dressing Change Due 12/31/16 01/25/2017 8:00 PM Flush Performed Yes 01/25/2017 8:00 PM Line Necessity Reviewed? Y 01/24/2017 8:00 PM Line Necessity Yes, meets criteria 01/24/2017 8:00 PM Line Necessity Reviewed With sicu 01/24/2017 8:00 PM Number of days: Arterial Line 01/24/17 Left Radial (Active) Reassessment Unchd 01/26/2017 6:00 AM Site Assessment Clean;Dry;Intact 01/25/2017 8:00 PM Line Status Blood return noted;Pulsatile blood flow;Positional 01/25/2017 8:00 PM Art Line Waveform Square wave test performed;Positional;Dampened 01/25/2017 8:00 PM Pressurized Line Care Zeroed and calibrated;Leveled;Flushes easily;Flushed with saline;Pressure at 300mmHg 01/26/2017 4:30 AM Color/Movement/Sensation Capillary refill less than/ equal to 3 sec 01/25/2017 8:00 PM Dressing Type Transparent 01/25/2017 8:00 PM Dressing Status Clean;Dry;Intact;Occlusive;Transparent 01/25/2017 8:00 PM Dressing Change Due 01/31/17 01/25/2017 8:00 PM Number of days:2 CVC Double Lumen 01/23/17 Right Internal jugular (Active) Reassessment Unchd X 01/26/2017 6:00 AM Site Assessment Intact 01/25/2017 8:00 PM Lumen 1 Status Infusing 01/26/2017 4:30 AM Lumen 2 Status Blood return noted;Capped 01/26/2017 6:00 AM Line Intervention Flushed;Alcohol cap 01/26/2017 6:00 AM CVP Waveform Appropriate waveforms;Square wave test performed 01/25/2017 8:00 AM Pressurized Line Care Zeroed and calibrated;Leveled;Flushes easily;Flushed with saline;Pressure at 300mmHg 01/25/2017 8:00 AM Dressing Type Transparent 01/25/2017 8:00 PM Dressing Status Clean;Dry;Intact;Occlusive;Transparent 01/25/2017 8:00 PM Dressing Intervention New dressing 01/24/2017 10:00 PM Dressing Change Due 01/31/17 01/25/2017 8:00 PM Line Necessity Reviewed? Y 01/25/2017 8:00 PM Line Necessity Yes, meets criteria 01/25/2017 8:00 PM Line Necessity Reviewed With sicu 01/25/2017 8:00 PM Number of days:3 Assessment / Plan Pain control: adequate Mr. Espinosa questions answered / anesthesia plan accepted: - Continue current therapy (hydromorphone 0.02 mg/mL with bupivacaine 0.0625% at a rate of 8 mL/hr) Subjective Pain at rest: 0/10 Pain with movement: 2/10 Pain location: incision Denies: upper extremity weakness, lower extremity weakness, itching, nausea/vomiting, difficulty breathing, headaches, neck stiffness/pain or back pain Objective Elbert Espinosa is well-appearing, in no acute distress and comfortable. He is alert and oriented toperson, place, situation and time. The catheter dressing is intact, no erythema and clean/dry. is taking an anticoagulant - lovenox. Findings: vital signs stable, afebrile, no motor block, sensory deficit (As appropriate for epidural), no paresthesias and moving all extremities Hypotension: no Pain management: adequate Nausea / vomiting: no Temp: [36.8 ??C (98.3 ??F)-37.1 ??C (98.7 ??F)] 36.9 ??C (98.5 ??F) Heart Rate: [66-91] 77 Resp: [12-26] 14 BP: (110-148)/(44-94) 134/60 Arterial Line BP: (115-179)/(35-71) 129/37 Associated attestation - Davi Downing MD - 01/26/2017 9:01 AM TUTU have personally seen and examined the patient. I have reviewed the note and concur with the documentation of Elbert Espinosa. Dajuan Koroma MD - 01/26/2017 7:04 AM ESTFormatting of this note may be different from the original. Surgical Oncology Progress Note Assessment & Plan: Mr. Elbert Espinosa is a 76M with PMHx of GERD, COPD, BPH, tobacco use, umbilical hernia, and known pancreatic adenocarcinoma s/p 3 treatments of neoadjuvant chemotherapy (stopped early 2/2 side effects) who is s/p Whipple on 01/24 ??Pancreatic Adenocarcinoma - diet: NPO except Ice chips,TFs @10, will advance - IVF: D5 LR @ 125 mL/h - GI PPx: protonix - DVT PPx: lovenox - control pain with Epidural,under better control today - control nausea with zofran - blunt for strict I's & O's -Abdomen is soft ATTP, ND, coverlets in place, Ingris with SS drainage, Pancreatic drain with blue output from dye - will discuss lasix this AM - awaiting BF Subjective: No N/V. Reports ambulating. Temp: [98.3 ??F (36.8 ??C)-98.8 ??F (37.1 ??C)] 98.7 ??F (37.1 ??C) Heart Rate: [66-91] 77 Resp: [12-26] 14 BP: (110-148)/(44-94) 122/64 Arterial Line BP: (115-179)/(35-71) 129/37 I/O last 3 completed shifts: In: 6407.3 [I.V.:4606.3; NG/GT:30; IV Piggyback:1564.3] Out: 2354 [Urine:914; Emesis/NG output:1215; Drains:225] Objective: Gen: NAD HEENT: MMM, EOMI CV: HDS Pulm: Symmetric chest rise, respirations unlabored ABD: S, ATTP, ND, wounds CDI, Pancreatic drain with no output, Gtube w/ bilious output : Blunt in place Extrem: warm, well perfused Wound: incisional sites C/D/I, no gross blood, coverlets over wounds Neuro: no focal neurological deficits, answering questions appropriately Psych: affect appropriate Patient Active Problem List Diagnosis SNOMED CT(R) ??? 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 Chronic obstructive pulmonary disease (HCC) CHRONIC OBSTRUCTIVE LUNG DISEASE ??? Pure hypercholesterolemia PURE HYPERCHOLESTEROLEMIA ??? Abnormal PSA PROSTATE SPECIFIC ANTIGEN ABNORMAL ??? BPH with obstruction/lower urinary tract symptoms BENIGN PROSTATIC HYPERTROPHY WITH OUTFLOW OBSTRUCTION ??? Elevated PSA RAISED PROSTATE SPECIFIC ANTIGEN ??? Prostatitis, chronic CHRONIC PROSTATITIS ??? Malignant neoplasm of head of pancreas (HCC) MALIGNANT TUMOR OF HEAD OF PANCREAS ??? Encounter for antineoplastic chemotherapy PATIENT ENCOUNTER STATUS ??? Rash ERUPTION ??? Chemotherapy follow-up examination FOLLOW-UP STATUS ??? Postoperative infection POSTOPERATIVE INFECTION Dajuan Koroma MD PGY-4 01/26/2017 7:04 AM Jonathan Mendoza MD - 01/26/2017 4:40 AM ESTFormatting of this note may be different from the original. Surgical Critical Care Daily Note Assessment and Plan 76 y.o.??male??w/ PHx GERD, COPD, BPH, tobacco use, umbilical hernia, and known pancreatic adenocarcinoma s/p whipple 01/24/2017 w/ Dr. Guillen. ?? Pancreatic adenocarcinoma - POD #2 s/p whipple procedure 01/24 - Pathology: pT3, pN1, pMn/a (stage IIB), positive SMA margin, 06/05 LNs - Dilaudid/bupivicaine epidural for pain control - NPO w/ ice chips, NG to ILWS - Lovenox for DVT ppx - Pepcid - SSI for blood glucose control - G-J to SD, will monitor outputs closely - D5LR @ 125cc/hr - AM labs stable - KUB pending - PT/OT when able - Transfer pending ?? Critical Care Systems: PLUMBING ASSEMBLER INSTALLER: dilaudid/bupivicaine epidural CV: HDS Pul: 3L nc Renal: Cr 0.53 (0.56), D5LR @ 125cc/hr GI: G-J, NPO w/ ice chips Heme: Hgb 9.8 (10.6), Plt 188 (214) ID: WBC 10.4 (12.3) Endo: SSI Nut: NPO ice chips, TF @ 10 Skin: inc covered PPX: protonix, SCDs, lovenox TLD: PIVs, Miguel Mcdonald G-J, panc drain Code: Full Subjective/Review of Systems: No acute events overnight. Allergies and Medications: Allergies: Allergies Allergen Reactions ??? Ciprofloxacin Hives Hives in the 80s ??? Penicillin Hives Hives in the 80s ??? Tetracycline ??? Zofran (As Hydrochloride) [Ondansetron Hcl] Hives Itching, hives, shortness of breath, sweating Scheduled Medications: ??? enoxaparin (LOVENOX) injection 40 mg Subcutaneous Daily ??? lispro insulin 0-15 Units Subcutaneous at bedtime ??? insulin lispro 0-30 Units Subcutaneous Q4H While awake ??? magnesium sulfate IVPB/IV replacement 2 g Intravenous Once ??? pantoprazole 40 mg Intravenous QAM AC ??? potassium chloride 10 mEq Intravenous Q30 Min ??? sodium chloride (PF) 5 mL Intravenous Q8H ALIYAH Scheduled Infusions: ??? dextrose 5% lactated ringers 125 mL/hr (01/26/17428) ??? HYDROmorphone 0.02 mg/mL with bupivacaine 0.0625% in sodium chloride (NS) 0.9% 250 mL epidural 8 mL/hr at 01/25/172112 ??? nalOXone (NARCAN) infusion ??? sodium chloride 0.9 % PRN Medications: acetaminophen, diphenhydrAMINE (BENADRYL) inj orderable, HYDROmorphone, nalBUPHine (NUBAIN) injection, nalOXone (NARCAN) infusion, naloxone AND Notify physician AND naloxone, oxyCODONE, Saline lock IV AND sodium chloride (PF) AND sodium chloride (PF) AND sodium chloride 0.9 % Exam: Vital Signs: Current: BP (!) 113/50 Pulse 75 Temp 98.3 ??F (36.8 ??C) (Oral) Resp 14 Ht 5' 8 Wt 71.8kg (158 lb 4.6 oz) SpO2 96% BMI 24.07 kg/m2 Range: Temp: [98.3 ??F (36.8 ??C)-98.8 ??F (37.1 ??C)] 98.3 ??F (36.8 ??C) Heart Rate: [66-91] 75 Resp: [10-26] 14 BP: (108-148)/(44-94) 113/50 Arterial Line BP: (125-179)/(38-71) 125/38 Intake/Output Summary (Last 24 hours) at 01/26/17 0440 Last data filed at 01/26/17 0430 Gross per 24 hour Intake 4680.4 ml Output 1705 ml Net 2975.4 ml General: Awake and alert, NG in place Head: normocephalic, atraumatic Eyes: no scleral icterus Neck: trachea midline, soft Cardiovascular: hemodynamically stable, palpable radial pulses Pulmonary: respirations unlabored on nc O2 Abdomen: soft, ATTP, inc covered, no peritoneal signs, ingris, G-J, panc stent Extremities: no obvious deformities Skin: warm, dry and intact Neurological: WOO Laboratory Data: Laboratory Data: Pertinent lab data reviewed Radiology: Pertinent lab data reviewed Microbiology: Pertinent lab data reviewed No results for input(s): PHART, TOT4PSN, PO2ART, M9MFSTHQ, RESPRATE, TIDALVOL, PEEP, [id number] in thelast 72 hours. Recent Labs 01/24/17 1408 01/25/1723101/26/17209 WBC 11.52* 12.34* 10.38 HGB 11.4* 10.6* 9.8* PLT 218 214 188 Recent Labs 01/24/17 1408 01/25/17 0232 01/25/17 1207 01/26/17209 NA 136 136 136 137 K 4.1 4.0 4.5 3.8 CL 100 99 98 101 BICARB 26 27 30 31 BUN 10 11 13 14 CREATININE 0.49* 0.44* 0.56* 0.53* GLUCOSE 223* 121* 159* 135* PHOS 2.6 2.9 -- 3.0 MG 1.7 1.8 -- 1.7 OSCAR 4.8 5.1 -- 4.9 CALCIUM 8.3* 8.5 -- 8.4 BILITOT 0.4 0.3 -- 0.3 ALKPHOS 57 47 -- 44 ALT 79* 89* -- 254* AST 80* 95* -- 235* PROT 5.7* 5.3* -- 5.1* ALBUMIN 3.1* 2.9* -- 2.7* Recent Labs 01/24/17 1408 01/25/1723101/26/17209 INR 1.1 1.1 1.3* Jonathan Mendoza MD 01/26/2017 4:40 AM Associated attestation - Tati Guillen MD - 01/26/2017 9:27 AM ESTResident's H&P note reviewed. I personally examined this patient and reviewed all pertinent data. A thorough examination of remaining 10 point review of systems did not reveal any pertinent positive or negative findings except those described in the resident's note. Doing well, AVSS. Wound clean and dry, CODIE with SS output. Final SMA margin from Whipple specimen being reviewed by pathology today. Increase tube feeds 20 ml/hr, lasix today, decrease IVF. Ok to tx 9SHbrodie, Davion Damon MD - 01/25/2017 2:02 PM ESTFormatting of this note may be different from the original. [facility] Inpatient Progress Note 01/25/2017 Elbert Espinosa 1940 [id number] Assessment/Plan: Elbert Espinosa is a 76 y.o. male with a history of tobacco abuse, COPD, BPH and pancreatic adenocarcinoma who presented to [facility] 01/23/2017 for planned whipple procedure per Dr. Guillen (surg/onc). [facility] for [facility]. ?? 1. Pancreatic adenocarcinoma: Diagnosed 10/2014. Stage IB, S/p 3 treatments of neoadjuvant chemotherapy stopped early due to side effects. Dr. Guillen (surg/onc) completed whipple procedure 01/23/17. Post op management per surgery. Pain control with epidural opiates. 2. T2DM: With hyperglycemia post op, covered with SSI. A1C 6.6% on 01/25/17. This may worsen post whipple. Continued SSI inpatient. Will eval discharge needs, hopeful for simply dietary modifications with PCP f/u. 3. Hyponatremia: Baseline unclear. NA 131 on admission. Suspect SIADH due to above. Resolved with IVF. 4. COPD: Per history. Not on home 02. Not in acute exacerbation. Continued home inhalers. 5. Smoker: Active. Cessation advised. 6. DVT Prophylaxis: per surgery. ?? Thank you for allowing us to participate in the care of your patient. Do not hesitate to contact us with questions. Before 6 pm, please contact the provider listed in the treatment team. After 6 pm, please contact [phone] for any questions or concerns. ?? Patient Arrived From: Home Expected Disposition: TBD Based on current clinical information, the expected discharge date is: TBD Subjective: Chart reviewed, including documentation from campaign consultant recommendations. Pulse ox reviewed. Discussed with RN and wrapper caser. Seen in SICU, relayed diagnosis of diabetes. Physical Exam: BP (!) 125/53 Pulse 66 Temp 98.8 ??F (37.1 ??C) (Oral) Resp 16 Ht 5' 8 Wt 71.8 kg (158 lb 4.6 oz) SpO2 100% BMI 24.07 kg/m2 General: NAD Eyes: EOMI ENT: neck supple, CVC in place Cardiovascular: Regular rate. Respiratory: Clear to auscultation Gastrointestinal: Incisional sites C/D/I, bandaged, drains in place Genitourinary: no suprapubic tenderness Musculoskeletal: No edema. Skin: warm, dry Neuro: Alert. Psych: Mood appropriate. Labs, Imaging and Studies reviewed: Lab Results Component Value Date GLUCOSE 159 (H) 01/25/2017 CALCIUM 8.5 01/25/2017 NA 136 01/25/2017 K 4.5 01/25/2017 CL 98 01/25/2017 BUN 13 01/25/2017 CREATININE 0.56 (L) 01/25/2017 Lab Results Component Value Date WBC 12.34 (H) 01/25/2017 HGB 10.6 (L) 01/25/2017 HCT 31.5 (L) 01/25/2017 MCV 94.0 01/25/2017 PLT 214 01/25/2017 Lab Results Component Value Date ALT 89 (H) 01/25/2017 AST 95 (H) 01/25/2017 ALKPHOS 47 01/25/2017 BILITOT 0.3 01/25/2017 Lab Results Component Value Date INR 1.1 01/25/2017 Kaylie Mccloud, RN - 01/25/2017 1:52 PM ESTCOMPLEX DISCHARGE Date: 01/25/2017 Time: 1:52 PM Following for transitional needs, verified insurance, rx coverage and PCP Dr. Allison. Cancer Navigator consulted. Lives w/spouse, spouse uses rollator in community at baseline, patient is independent prior to admit, no use of dme but does have home O2 through [facility] 2.5L nc at [facility]. Therapy currently recommended 2- 3 and tub seat, with hopeful progression. Notify order placed- will follow up once medically progresses to determined potential nursing needs at d/c, will need follow up on dme recommended.Patient remains NPO/NGT-LIWS, drains pancreatic and ingris and GJ tube. Await post op milestones, bowel function and nutritional progression. Will continue to follow for dispo planning needs. 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) Prior to Admission Home Care Services: No Current Home Equipment: Oxygen (through [place] [facility]; 2.5 L nc @ [facility]) Insurance Coverage for Prescriptions: Yes Anticipated Discharge Plan Anticipated HME: None Anticipated Home Care Needs: Home health care, None (therapy recs 2-3; with hopeful progression possno dc needs) Potential for Readmission Potential for Readmission: Yes Potential for Readmission Reason: LACE 13; cancer s/p whipple Discharge Readiness Expected Discharge Date: 02/01/17 [facility] Disposition D/C Disposition: Home Agency/Destination: Home Home Care Needs : Undetermined (possible hhc needs, hopeful progression, therapy recs 2-3) HME: None Transportation Type: Auto Kianna Higgins RN - 01/25/2017 8:51 AM ESTFormatting of this note may be different from the original. Anesthesia Progress Note 1 Day Post-Op Procedure(s): WHIPPLE PROCEDURE Epidural/Nerve Block Catheter 01/24/17 (Active) Reassessment Unchd 01/25/2017 5:20 AM Epidural Sign Above Bed Yes 01/24/2017 8:00 PM Site Assessment Clean;Dry;Intact 01/24/2017 8:00 PM Motor Assessment Able to raise pelvis;Able to raise right leg;Able to raise left leg 01/24/2017 8:00 PM Sensory Assessment No numbness;No tingling 01/24/2017 8:00 PM Line Status Infusing 01/24/2017 8:00 PM Dressing Type Transparent 01/24/2017 8:00 PM Dressing Status Clean;Dry;Intact;Occlusive;Transparent 01/24/2017 8:00 PM Number of days:1 Port A Cath Power Port Right Chest (Active) Reassessment Unchd 01/25/2017 5:20 AM Access Date 01/23/17 01/23/2017 1:12 PM Access Time 1314 01/23/2017 1:12 PM Accessed by: Gris Meneses RN 01/23/2017 1:12 PM Size (Gauge) 19 G 01/23/2017 1:12 PM Needle Length 0.75 inches 01/23/2017 1:12 PM Site Assessment Clean;Dry;Intact 01/24/2017 8:00 PM Line Status Capped 01/24/2017 8:00 PM Line Intervention Flushed;Alcohol cap 01/24/2017 1:10 PM Dressing Type Transparent 01/24/2017 8:00 PM Dressing Status Clean;Dry;Intact;Occlusive;Transparent 01/24/2017 8:00 PM Flush Performed Yes 01/25/2017 5:20 AM Line Necessity Reviewed? Y 01/24/2017 8:00 PM Line Necessity Yes, meets criteria 01/24/2017 8:00 PM Line Necessity Reviewed With sicu 01/24/2017 8:00 PM Number of days: Arterial Line 01/24/17 Left Radial (Active) Reassessment Unchd 01/25/2017 5:20 AM Site Assessment Clean;Dry;Intact 01/24/2017 8:00 PM Line Status Blood return noted;Pulsatile blood flow;Positional 01/24/2017 8:00 PM Art Line Waveform Appropriate waveform;Square wave test performed 01/24/2017 8:00 PM Pressurized Line Care Zeroed and calibrated;Leveled;Flushes easily;Flushed with saline;Pressure at 300mmHg;Connections checked and tightened 01/24/2017 8:00 PM Color/Movement/Sensation Capillary refill less than/ equal to 3 sec 01/24/2017 8:00 PM Dressing Type Transparent;Other (comment) 01/24/2017 8:00 PM Dressing Status Clean;Dry;Intact;Occlusive;Transparent;Reinforced 01/24/2017 8:00 PM Dressing Change Due 01/31/17 01/24/2017 8:00 PM Number of days:1 CVC Double Lumen 01/23/17 Right Internal jugular (Active) Reassessment Unchd 01/25/2017 5:20 AM Site Assessment Intact 01/24/2017 8:00 PM Lumen 1 Status Infusing 01/24/2017 8:00 PM Lumen 2 Status Other (comment) 01/24/2017 8:00 PM Line Intervention Flushed 01/24/2017 8:00 PM CVP Waveform Appropriate waveforms;Dampened 01/24/2017 8:00 PM Pressurized Line Care Zeroed and calibrated;Leveled;Flushes easily;Flushed with saline;Pressure at 300mmHg 01/24/2017 8:00 PM Dressing Type Transparent 01/24/2017 8:00 PM Dressing Status Changed;Clean;Dry;Intact;Occlusive;Transparent 01/24/2017 10:00 PM Dressing Intervention New dressing 01/24/2017 10:00 PM Dressing Change Due 01/31/17 01/24/2017 10:00 PM Line Necessity Reviewed? Y 01/24/2017 8:00 PM Line Necessity Yes, meets criteria 01/24/2017 8:00 PM Line Necessity Reviewed With sicu 01/24/2017 8:00 PM Number of days:2 Assessment / Plan Pain control: adequate Mr. Espinosa questions answered / anesthesia plan accepted: - Continue current therapy (hydromorphone 0.02 mg/mL with bupivacaine 0.0625% at a rate of 8 mL/hr) Subjective Pain at rest: 0/10 Pain with movement: 3/10 Pain location: incision Description of paresthesias: soreness. Denies: upper extremity weakness, lower extremity weakness, itching, nausea/vomiting, difficulty breathing, headaches, neck stiffness/pain or back pain Objective Elbert Espinosa is well-appearing, in no acute distress and comfortable. He is alert and oriented toperson, place, situation and time. The catheter dressing is intact, no erythema and clean/dry. is taking an anticoagulant - lovenox. Findings: vital signs stable, afebrile, no motor block, sensory deficit (As appropriate for epidural), no paresthesias and moving all extremities Hypotension: no Pain management: adequate Nausea / vomiting: no Temp: [35.6 ??C (96.1 ??F)-37.1 ??C (98.8 ??F)] 37.1 ??C (98.8 ??F) Heart Rate: [66-93] 73 Resp: [9-24] 18 BP: (100-150)/(46-77) 111/62 Arterial Line BP: (99-158)/(35-89) 149/51 SpO2: [100 %] 100 % Associated attestation - Tati Donaldson MD - 01/31/2017 8:24 AM TUTU have personally seen and examined the patient. I have reviewed the note and concur with the documentation of Elbert Espinosa. Ryan Licona MD - 01/25/2017 6:53 AM ESTFormatting of this note may be different from the original. Surgical Oncology Progress Note Assessment & Plan: Mr. Elbert Espinosa is a 76M with PMHx of GERD, COPD, BPH, tobacco use, umbilical hernia, and known pancreatic adenocarcinoma s/p 3 treatments of neoadjuvant chemotherapy (stopped early 2/2 side effects) who is s/p Whipple on 01/24 ??Pancreatic Adenocarcinoma - diet: NPO except Ice chips - IVF: D5 LR @ 125 mL/h - GI PPx: protonix - DVT PPx: lovenox - control pain with Epidural,under better control today - control nausea with zofran - blunt for strict I's & O's -Abdomen is soft ATTP, ND, coverlets in place, Ingris with SS drainage, Pancreatic drain with blue output fromdye -Making urine and HDS at this time -Ng tube with bilious output, will likely remove NG this morning -KUB with poor quality but j-tube appears to be in correct position -Will discuss starting trophic tube feeds through j-tube with Subjective: Patient states that his pain is under better control than the past 6 months. He denies any nausea and would like to get up and walk around. Temp: [96.1 ??F (35.6 ??C)-98.3 ??F (36.8 ??C)] 98.3 ??F (36.8 ??C) Heart Rate: [69-93] 74 Resp: [9-24] 19 BP: (100-150)/(49-77) 121/56 Arterial Line BP: (99-158)/(35-89) 154/50 I/O last 3 completed shifts: In: 4187.4 [I.V.:4187.4] Out: 1355 [Urine:970; Emesis/NG output:75; Drains:110; Blood:200] I/O this shift: In: 1758.2 [I.V.:1506.9; NG/GT:30; IV Piggyback:221.3] Out: 1099 [Urine:404; Emesis/NG output:610; Drains:85] Objective: Gen: NAD HEENT: MMM, EOMI CV: HDS Pulm: Symmetric chest rise, respirations unlabored ABD: S, ATTP, ND, coverlets in place, Black with SS drainage, Pancreatic drain with no output : Blunt in place Extrem: warm, well perfused Wound: incisional sites C/D/I, no gross blood, coverlets over wounds Neuro: no focal neurological deficits, answering questions appropriately Psych: affect appropriate Patient Active Problem List Diagnosis SNOMED CT(R) ??? 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 Chronic obstructive pulmonary disease (HCC) CHRONIC OBSTRUCTIVE LUNG DISEASE ??? Pure hypercholesterolemia PURE HYPERCHOLESTEROLEMIA ??? Abnormal PSA PROSTATE SPECIFIC ANTIGEN ABNORMAL ??? BPH with obstruction/lower urinary tract symptoms BENIGN PROSTATIC HYPERTROPHY WITH OUTFLOW OBSTRUCTION ??? Elevated PSA RAISED PROSTATE SPECIFIC ANTIGEN ??? Prostatitis, chronic CHRONIC PROSTATITIS ??? Pancreatic cancer (HCC) MALIGNANT TUMOR OF PANCREAS ??? Encounter for antineoplastic chemotherapy PATIENT ENCOUNTER STATUS ??? Rash ERUPTION ??? Chemotherapy follow-up examination FOLLOW-UP STATUS ??? Postoperative infection POSTOPERATIVE INFECTION ??? Pancreatic adenoma ADENOMA OF PANCREAS Ryan Licona MD PGY-3 01/25/2017 6:53 AM Jonathan Mendoza MD - 01/25/2017 4:00 AM ESTFormatting of this note may be different from the original. Surgical Critical Care Daily Note Assessment and Plan 76 y.o.??male??w/ PHx GERD, COPD, BPH, tobacco use, umbilical hernia, and known pancreatic adenocarcinoma s/p whipple 01/24/2017 w/ Dr. Guillen. ?? Pancreatic adenocarcinoma - POD #1 s/p whipple procedure 01/24 - Pathology pending - Dilaudid/bupivicaine epidural for pain control - NPO w/ ice chips, NG to ILWS - Lovenox for DVT ppx - Pepcid - SSI for blood glucose control - G-J to SD, will monitor outputs closely - D5LR @ 125cc/hr - AM labs stable - KUB pending - PT/OT when able - Will continue close monitoring in the SICU ?? 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 Allergies and Medications: Allergies: Allergies Allergen Reactions ??? Ciprofloxacin Hives Hives in the 80s ??? Penicillin Hives Hives in the 80s ??? Tetracycline ??? Zofran (As Hydrochloride) [Ondansetron Hcl] Hives Itching, hives, shortness of breath, sweating Scheduled Medications: ??? enoxaparin (LOVENOX) injection 40 mg Subcutaneous Daily ??? lispro insulin 0-15 Units Subcutaneous at bedtime ??? insulin lispro 0-30 Units Subcutaneous Q4H While awake ??? pantoprazole 40 mg Intravenous QAM AC ??? sodium chloride (PF) 5 mL Intravenous Q8H ALIYAH Scheduled Infusions: ??? dextrose 5% lactated ringers 125 mL/hr (01/25/17 0017) ??? HYDROmorphone 0.02 mg/mL with bupivacaine 0.0625% in sodium chloride (NS) 0.9% 250 mL epidural 8 mL/hr at 01/24/171999 ??? nalOXone (NARCAN) infusion ??? sodium chloride 0.9 % PRN Medications: acetaminophen, diphenhydrAMINE (BENADRYL) inj orderable, HYDROmorphone, methylene blue, nalBUPHine (NUBAIN) injection, nalOXone (NARCAN) infusion, naloxone AND Notify physician AND naloxone, oxyCODONE, sodium chloride, Saline lock IV AND sodium chloride (PF) AND sodium chloride (PF) AND sodium chloride 0.9 % Exam: Vital Signs: Current: BP (!) 105/51 Pulse 69 Temp 97.8 ??F (36.6 ??C) (Oral) Resp (!) 10 Ht 5' 8 Wt 71.8 kg (158 lb 4.6 oz) SpO2 96% BMI 24.07 kg/m2 Range: Temp: [96.1 ??F (35.6 ??C)-98.7 ??F (37.1 ??C)] 97.8 ??F (36.6 ??C) Heart Rate: [65-93] 69 Resp: [9-24] 10 BP: (105-150)/(51-77) 105/51 Arterial Line BP: (99-158)/(35-89) 117/41 Intake/Output Summary (Last 24 hours) at 01/25/17 0207 Last data filed at 01/25/17 0100 Gross per 24 hour Intake 4926.07 ml Output 1697 ml Net 3229.07 ml General: Awake and alert, NG in place Head: normocephalic, atraumatic Eyes: no scleral icterus Neck: trachea midline, soft Cardiovascular: hemodynamically stable, palpable radial pulses Pulmonary: respirations unlabored on nc O2 Abdomen: soft, ATTP, inc covered, no peritoneal signs, ingris, G-J, panc stent Extremities: no obvious deformities Skin: warm, dry and intact Neurological: WOO Laboratory Data: Laboratory Data: Pertinent lab data reviewed Radiology: Pertinent lab data reviewed Microbiology: Pertinent lab data reviewed No results for input(s): PHART, WCR2BTI, PO2ART, F1AHNWLS, RESPRATE, TIDALVOL, PEEP, [id number] in thelast 72 hours. Recent Labs 01/23/17 1330 01/24/17 0415 01/24/17 1408 WBC 6.50 5.48 11.52* HGB 12.1* 10.8* 11.4* PLT 242 211 218 Recent Labs 01/23/17 1330 01/24/17 0415 01/24/17 1408 NA 131* 135 136 K 4.3 3.8 4.1 CL 97* 101 100 BICARB 24 26 26 BUN 15 9 10 CREATININE 0.53* 0.45* 0.49* GLUCOSE 109* 161* 223* PHOS -- 3.4 2.6 MG -- 2.0 1.7 OSCAR -- 4.9 4.8 CALCIUM 9.1 8.4 8.3* BILITOT 0.4 0.4 0.4 ALKPHOS 64 54 57 ALT 17 13 79* AST 23 15 80* PROT 6.9 5.6* 5.7* ALBUMIN 3.9 3.3 3.1* Recent Labs 01/23/17 1330 01/24/17 0415 01/24/17 1408 INR 1.0 1.1 1.1 Jonathan Mendoza MD 01/25/2017 2:07 AM Davion Pike MD - 01/24/2017 4:40 PM ESTFormatting of this note may be different from the original. [facility] Elbert Espinosa 1940 [id number] Assessment/Plan: Elbert Espinosa is a 76 y.o. male with a history of tobacco abuse, COPD, BPH and pancreatic adenocarcinoma who presented to [facility] 01/23/2017 for planned whipple procedure per Dr. Guillen (surg/onc). [facility]. ?? 1. Pancreatic adenocarcinoma: Diagnosed 10/2014. Stage IB, S/p 3 treatments of neoadjuvant chemotherapy stopped early due to side effects. Dr. Guillen (surg/onc) completed whipple procedure 01/23/17. Post op management per surgery. Pain control with epidural opiates. 2. Hyperglycemia: Post op, covered with SSI. Checked A1C, will monitor insulin needs. 3. Hyponatremia: Baseline unclear. NA 131 on admission. Suspect SIADH due to above. Resolved with IVF. 4. COPD: Per history. Not on home 02. Not in acute exacerbation. Continued home inhalers. 5. Smoker: Active. Cessation advised. 6. DVT Prophylaxis: per surgery. ?? Thank you for allowing us to participate in the care of your patient. Do not hesitate to contact us with questions. Before 6 pm, please contact the provider listed in the treatment team. After 6 pm, please contact [phone] for any questions or concerns. ?? Patient Arrived From: Home Expected Disposition: TBD Based on current clinical information, the expected discharge date is: TBD Subjective: New to me. Chart reviewed, including documentation from previous hospitalizations and campaign consultant recommendations. Pulse ox reviewed. Discussed with RN and wrapper caser. Seen post op, pain controlled. Physical Exam: BP 127/60 Pulse 88 Temp (!) 96.1 ??F (35.6 ??C) (Axillary) Resp 18 Ht 5' 8 Wt 71.8 kg (158 lb 4.6 oz) SpO2 93% BMI 24.07 kg/m2 General: NAD Eyes: EOMI ENT: neck supple Cardiovascular: Regular rate. Respiratory: Clear to auscultation Gastrointestinal: Incisional sites C/D/I, bandaged, drains in place Genitourinary: no suprapubic tenderness Musculoskeletal: No edema. Skin: warm, dry Neuro: Alert. Psych: Mood appropriate. Labs, Imaging and Studies reviewed: Lab Results Component Value Date GLUCOSE 223 (H) 01/24/2017 CALCIUM 8.3 (L) 01/24/2017 NA 136 01/24/2017 K 4.1 01/24/2017 CL 100 01/24/2017 BUN 10 01/24/2017 CREATININE 0.49 (L) 01/24/2017 Lab Results Component Value Date WBC 11.52 (H) 01/24/2017 HGB 11.4 (L) 01/24/2017 HCT 34.0 (L) 01/24/2017 MCV 94.7 01/24/2017 PLT 218 01/24/2017 Lab Results Component Value Date ALT 79 (H) 01/24/2017 AST 80 (H) 01/24/2017 ALKPHOS 57 01/24/2017 BILITOT 0.4 01/24/2017 Lab Results Component Value Date INR 1.1 01/24/2017 Ryan Licona MD - 01/24/2017 4:23 PM ESTFormatting of this note may be different from the original. Surgical Oncology Post-Operative Progress Note Assessment & Plan: Mr. Elbert Espinosa is a 76M with PMHx of GERD, COPD, BPH, tobacco use, umbilical hernia, and known pancreatic adenocarcinoma s/p 3 treatments of neoadjuvant chemotherapy (stopped early 2/2 side effects) who is s/p Whipple on 01/24 - diet: NPO except Ice chips - IVF: D5 LR @ 125 mL/h - GI PPx: protonix - DVT PPx: lovenox - control pain with Epidural, will increase to work on pain control - control nausea with zofran - blunt for strict I's & O's -Abdomen is soft ATTP, ND, coverlets in place, Ingris with SS drainage, Pancreatic drain with no output -Making urine and HDS at this time -Ng tube with bilious output -Post op Hg is 11.4, bicarb 26, cr 0.46 Subjective: Patient states that he is having continued pain at this time. HDS and labs Temp: [96.1 ??F (35.6 ??C)-98.7 ??F (37.1 ??C)] 96.1 ??F (35.6 ??C) Heart Rate: [65-93] 88 Resp: [11-18] 18 BP: (113-172)/(53-79) 127/60 Arterial Line BP: (99-151)/(47-89) 141/55 I/O last 3 completed shifts: In: 1000.9 [I.V.:1000.9] Out: 300 [Urine:300] I/O this shift: In: 2921.9 [I.V.:2921.9] Out: 740 [Urine:540; Blood:200] Objective: Gen: mild distress HEENT: MMM, EOMI CV: HDS Pulm: Symmetric chest rise, respirations unlabored ABD: S, ATTP, ND, coverlets in place, Black with SS drainage, Pancreatic drain with no output : Blunt in place Extrem: warm, well perfused Wound: incisional sites C/D/I, no gross blood, coverlets over wounds Neuro: no focal neurological deficits, answering questions appropriately Psych: affect appropriate Patient Active Problem List Diagnosis SNOMED CT(R) ??? 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 Chronic obstructive pulmonary disease (HCC) CHRONIC OBSTRUCTIVE LUNG DISEASE ??? Pure hypercholesterolemia PURE HYPERCHOLESTEROLEMIA ??? Abnormal PSA PROSTATE SPECIFIC ANTIGEN ABNORMAL ??? BPH with obstruction/lower urinary tract symptoms BENIGN PROSTATIC HYPERTROPHY WITH OUTFLOW OBSTRUCTION ??? Elevated PSA RAISED PROSTATE SPECIFIC ANTIGEN ??? Prostatitis, chronic CHRONIC PROSTATITIS ??? Pancreatic cancer (HCC) MALIGNANT TUMOR OF PANCREAS ??? Encounter for antineoplastic chemotherapy PATIENT ENCOUNTER STATUS ??? Rash ERUPTION ??? Chemotherapy follow-up examination FOLLOW-UP STATUS ??? Postoperative infection POSTOPERATIVE INFECTION ??? Pancreatic adenoma ADENOMA OF PANCREAS Ryan Licona MD PGY-3 01/24/2017 4:23 PM in this encounter H&P Notes Tati Guillen MD - 01/24/2017 7:42 AM ESTINTERVAL HISTORY AND PHYSICAL Patient Name: Elbert Espinosa Admit Date: [id number] MR #: [id number] : 1940 The H&P has been reviewed and the patient has been examined. I concur with the findings of the H&P. There are no significant changes. It is appropriate to proceed with the planned procedure. Tati Guillen MD 01/24/2017 7:42 Chivo Soler MD - 01/23/2017 12:11 PM ESTFormatting of this note may be different from the original. HISTORY AND PHYSICAL ?? Patient Name: Elbert Espinosa Admit Date: MR #: [id number] : 1940 ?? Physicians: Jus Allison MD (Family); No ref. provider found (referring) ?? Assessment and Plan: 76M with PMHx of GERD, COPD, BPH, tobacco use, umbilical hernia, and known pancreatic adenocarcinomas/p 3 treatments of neoadjuvant chemotherapy (stopped early 2/2 side effects) who presents to [facility] asa direct admit for planned Whipple procedure tomorow Pancreatic Adenocarcinoma stage IB involving head and uncinate process, 2.1cm - Clears, NPO after NC - Admission labs - Insert PIV, will plan to insert double lumen CVC when patient is transported to [facility] for pre op medical clearance and medical management post op - T&C for 4 units PRBCs - Activity as tolerated - MIVF at NC - ATBx OCTOR - SCDs for DVT ppx - Height and Weight - EKG - Consent obtained - Plan for OR in am with Dr. Guillen ?? Chief Complaint/Reason for Visit: Pancreatic adenocarcinoma ?? History of Present Illness: Elbert Espinosa is a 76 y.o. male presenting from home for pre-op clearance for planned Whipple procedure with Dr Guillen 01/24/17. He states that during the interm he had to stop his chemo short because he developed cellulitis. He denies any nausea or vomiting or fevers, states his bowel movements have been regular but that he doesn't feel he has been digesting normally. He endorses a low-grade soreness in his abdomen but Is unsure whether that has to do with his hernia or pancreatic mass. He is a pleasant gentleman accompanied by his who explain they have read all the resources they were given in office and feel ready for surgery tomorrow. ?? History: Past Medical History: Diagnosis Date ??? Arthritis ? BPH (benign prostatic hyperplasia) ? Cancer (HCC) ? skin cancer ??? Cataract ? Chemotherapy adverse reaction 12/01/2016 ?? has had 2 treatments-- getting port now. Had adverse reaction to zofran after first treatment ??? Chronic diarrhea ? current problem (07/21/16), stool specimen positive for blood ([facility]) per pt ??? Colon polyps 2010 ?? benign ??? Complication of anesthesia ? difficulty waking up ??? COPD (chronic obstructive pulmonary disease) (HCC) ? GERD (gastroesophageal reflux disease) ? History of stress test ? Pancreatic cancer (HCC) ? 11/12 ??? Pancreatic mass ? Past Surgical History: Procedure Laterality Date ??? APPENDECTOMY ? CATHETER INSERTION SQPORT N/A 12/04/2016 ?? Procedure: PORT PLACEMENT ; Surgeon: Kota Vences MD; Location: [facility] Main OR; Service: ??? COLONOSCOPY ?? 2009 ?? benign polyps found ??? COLONOSCOPY N/A 07/27/2016 ?? Procedure: COLONOSCOPY; Surgeon: Kota Vences MD; Location: [facility] Endo; Service: ??? PROSTATE BIOPSY ? SINUS SURGERY ?? 2004 ?? Family History Problem Relation Age of Onset ??? Hypertension Mother ? Stroke Mother ? Thyroid disease Mother ? Cancer Mother ? lung ??? Cancer Father ? Lung, malignant neoplasm of the large intestine ??? Cancer Sister ? colon cancer ?? Social History Social History ?? Social History ??? Marital status: ? Spouse name: N/A ??? Number of children: N/A ??? Years of education: N/A ?? Occupational History ??? Not on file. ?? Social History Main Topics ??? Smoking status: Current Every Day Smoker ? Packs/day: 1.00 ? Years: 60.00 ??? Smokeless tobacco: Never Used ??? Alcohol use Yes ? Comment: rarely 1-2 week ??? Drug use: No ??? Sexual activity: Not on file ?? Other Topics Concern ??? Not on file ?? Social History Narrative ? Allergy Information: I have reviewed the patient's allergies. Ciprofloxacin; Penicillin; Tetracycline; and Zofran (as hydrochloride) [ondansetron hcl] ?? Home Medications: Prescriptions Prior to Admission Outpatient Prescriptions as of Medication Sig ??? aspirin 81 MG EC tablet Take 1 tablet by mouth daily . ??? diphenhydrAMINE (BENADRYL) 25 mg capsule Take 25 mg by mouth every 6 (six) hours as needed for itching. ??? [] furosemide (LASIX) 20 MG tablet Take 1 (one) tablet (20 mg total) by mouth 2 (two) times a day. (Patient not taking: Reported on 01/04/2017.) ??? methylPREDNISolone (MEDROL DOSEPACK) 4 mg tablet Reasons: PT has at home, but not taking at this time. ??? mometasone-formoterol (DULERA) 200-5 mcg/actuation HFAA Inhale 2 puffs 2 (two) times a day. ??? omeprazole (PRILOSEC) 40 MG capsule Take 1 (one) capsule (40 mg total) by mouth daily. ??? oxygen Inhale 2.5 L/min nightly. ? Review of Systems: The following system(s) were reviewed and pertinent findings noted: Constitutional:No fever, no weight loss Resp:No dyspnea. No wheezing Neuro:No headache Integumentary:No skin rash ?? Physical Examination: Vital Signs: There were no vitals taken for this visit. ?? General: Alert, cooperative, no distress, appears stated age Back: Symmetric, no curvature, ROM normal, no CVA tenderness Lungs: Clear to auscultation bilaterally, respirations unlabored,normal respiratory effort Chest Wall: No tenderness or deformity Cardiovascular: Regular rate and rhythm, S1 and S2 normal, no murmur, rub or gallop; Pulses 2+ and symmetric all extremities Abdomen: Soft, non-tender, bowel sounds active all four quadrants,no masses, no organomegaly Extremities: Normal, atraumatic, no cyanosis or edema Skin: Skin color, texture, turgor normal, no rashes or lesions Musculoskeletal: Full range of motion of all extremities; no joint edema Psych: Mood and affect appropriate ? Laboratory and Additional Data Reviewed: Laboratory 01/23/17 8:42 AM Microbiology 01/23/17 8:42 AM Pathology 01/23/17 8:42 AM Radiology 01/23/17 8:42 AM Cardiology 01/23/17 8:42 AM Medications 01/23/17 8:42 AM Transcriptions 01/23/17 8:42 AM ?? in this encounter Procedure Notes Chivo Shah MD - 01/23/2017 3:39 PM ESTProcedure(s): CENTRAL VENOUS CATHETHER INSERTIONPre-Procedure Diagnose(s): Malignant neoplasm of pancreas, unspecified location of malignancy (HCC)Post-Procedure Diagnose(s): Malignant neoplasm of pancreas, unspecified location of malignancy (HCC)Central Venous Catheter Insertion Procedure Note Patient Name: Elbert Espinosa Admit Date: [id number] MR #: [id number] : 1940 Sedation Plan: No Sedation [place] Protocol: 1. Pre-procedure verification: - Correct patient, correct site, correct procedure (correct patient verified against two identifiers: name and date of ) - H&P or H&P update complete and in medical record - Consent form completed and signed: Yes - Informed consent risks: bleeding, pain, pneumothorax, hemothorax, infection - Review of: Radiology images, scans, labs, pathology, biopsy reports with appropriate identifiers (if applicable) - Any required blood products, implants, devices, and/or special equipment for the procedure (if applicable) 2. Site Markings - when appropriate: N/A 3. Time Out: Timeout occurred at the following time: 1520 (Includes validating the following: Correct patient, correct side/site marked and procedure to performed, correct position) Other: ?? Hand Hygiene completed ?? Procedure completed using maximum barrier precautions Indications: Vascular access Procedure Details: The patient was appropriately positioned, prepped with chlorhexidine, which was allowed to dry and draped in the standard sterile fashion. The skin was anesthetized using 1% lidocaine. Following this, the right internal jugular vein was accessed and cannulated using an introducer needle. Adequate drawback of dark venous blood was noted and the syringe was subsequently removed. A flexible guidewire was then passed through the needle and into the vein. The needle was removed and a small incision was made at the skin surface with a scalpel. A dilator was used and a previously flushed double lumen central venous catheter was placed over the guidewire and into the vein using Seldinger technique.The wire was removed and all three lumens were checked for adequate drawback of venous blood and flushed until clear. The CVC was then secured to the skin with 3-0 silk sutures and a sterile dressing was placed. The patient tolerated this procedure well and without incident. ?? Ultrasound guidance was used during this procedurein this encounter Consult Notes Vaishnavi Garsia LISW - 02/01/2017 8:43 AM ESTAssociated Order(s): IP CONSULT TO UTILIZATION MANAGEMENT & CARE COORDINATION COMPLEX DISCHARGE Date: 02/01/2017 Time: 8:43 AM Patient Name: Elbert Espinosa Date of : 1940 Sex: Male Patient Information Primary Caregiver: Self Resources Financial Resources: Medicare ([employer] managed medicare; secondary jessica ) Discharge Plan Shared UM/CC and RN Source of Information: Chart Contact Phone Number: Hannah Espinosa (sp) [phone] Living Arrangements: Spouse/significant other (spouse uses rollator in community @ ) Support Systems: Spouse/significant other, Family members, Friends/neighbors Functional Status: Independent (+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) Prior to Admission Home Care Services: No Current Home Equipment: Oxygen (through [place] [facility]; 2.5 L nc @ [facility]) Insurance Coverage for Prescriptions: Yes Anticipated Discharge Plan Anticipated HME: Tub/Shower chair (recommende) Anticipated Home Care Needs: Home health care Anticipated Facility Type: Home infusion Potential for Readmission Potential for Readmission: Yes Potential for Readmission Reason: LACE 13; cancer s/p whipple Discharge Readiness Expected Discharge Date: 02/02/17 (TF nocturnal. G tube clamped. panc drain tied off. CODIE ) [facility] Disposition D/C Disposition: Home Health Care Services Agency/Destination: [facility] Home Care Needs : Undetermined (possible hhc needs, hopeful progression, therapy recs 2-3) HME: Undetermined (tub seat recommended ) Transportation Type: Auto Rec'd consult to arrange home TPN at d/c. Referral made to [place] to check TPN benefits. [employer] bundlefaxed to insurance. GAS FITTER APPRENTICE to follow. Roxana Chaney, RN - 01/31/2017 8:10 PM ESTAssociated Order(s): IP CONSULT TO IV TEAMThis RN to bedside to place PICC line at approximately 1615. Explained to pt and what the PICC line is, what it is for and the procedure to insert it. Pt's and pt would prefer that the pt didnot get another Central Line at this time. Called Dr Koroma to see if we could possibly place an PIV for fluids and medications and use the pts implanted port for TPN. According to person who answered the page Dr Koroma was scrubbed in doing surgery. This RNs personal cellphone number given for physician to call when done. No call back as of 8:00pm so this RN called bedside RN Adithya to see if he had updates. Adithya also had not heard from a physician. This RN offered to call again but Adithya stated he would follow up. Order for PICC cancelled at this time due to pt and pts wifes request. PAT Haji told to reconsult the IV specialist if anything changes.Joleen Salazar, RITU - 01/31/2017 11:28 AM ESTFormatting of this note may be different from the original. Total Parenteral Nutrition (TPN) Assessment form Service Line ordering: Surgery IV access: PICC to be placed today Drug/Food Allergies: Ciprofloxacin; Penicillin; Tetracycline; and Zofran (as hydrochloride) [ondansetron hcl] Past Medical Hx/Nutrition Hx: Past Medical History: Diagnosis Date ??? Arthritis ??? BPH (benign prostatic hyperplasia) ??? Cancer (HCC) skin cancer ??? Cataract ??? Chemotherapy adverse reaction 12/01/2016 has had 2 treatments-- getting port now. Had adverse reaction to zofran after first treatment ??? Chronic diarrhea current problem (07/21/16), stool specimen positive for blood ([facility]) per pt ??? Colon polyps 2010 benign ??? Complication of anesthesia difficulty waking up ??? COPD (chronic obstructive pulmonary disease) (HCC) ??? GERD (gastroesophageal reflux disease) ??? History of stress test ??? Pancreatic cancer (HCC) 11/12 ??? Pancreatic mass Hospital Course: Pt w/ adenocarcinoma of the pancreas. S/P whipple on 01/24. 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 Height: 68 Weight: 71.8kg IBW: 68.4kg Body mass index is 24.07 kg/(m^2). reflecting normal weight Wt hx:-7# in last month Medications:.protonix IVF: D5.45 NS w/ 20 KCl @ 100 ml/hr Laboratory: Cl 96, Phos 4.0 Accuchecks:139 Indication for TPN: failed enteral trial, chyle leak Energy needs:0876-9580 kcals (25-30 kcals/kg act wt) Protein needs:86-108 gms (1.2-1.5 gms/kg Act wt) TPN recommendations: 5% AA, 15% Dextrose starting @ 40 ml/hr, goal 83 ml/hr with 250 ml 20% ILE daily to provide 1917 kcals, [address]. [address], [facility] [phone] cell Vaishnavi Garsia LISW - 01/29/2017 1:44 PM ESTAssociated Order(s): IP CONSULT TO UTILIZATION MANAGEMENT & CARE COORDINATION COMPLEX DISCHARGE Date: 01/29/2017 Time: 1:44 PM Patient Name: Elbert Espinosa Date of : 1940 Sex: Male Patient Information Primary Caregiver: Self Resources Financial Resources: Medicare ([employer] managed medicare; secondary jessica ) Discharge Plan Shared UM/CC and RN Source of Information: Chart Contact Phone Number: Hannah Espinosa (sp) [phone] Living Arrangements: Spouse/significant other (spouse uses rollator in community @ [facility]) Support Systems: Spouse/significant other, Family members, Friends/neighbors Functional Status: Independent (+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) Prior to Admission Home Care Services: No Current Home Equipment: Oxygen (through [place] [facility]; 2.5 L nc @ [facility]) Insurance Coverage for Prescriptions: Yes Anticipated Discharge Plan Anticipated HME: Tub/Shower chair (recommende) Anticipated Home Care Needs: Home health care Potential for Readmission Potential for Readmission: Yes Potential for Readmission Reason: LACE 13; cancer s/p whipple Discharge Readiness Expected Discharge Date: 02/01/17 [facility] Disposition D/C Disposition: Home Agency/Destination: Home Home Care Needs : Undetermined (possible hhc needs, hopeful progression, therapy recs 2-3) HME: Undetermined (tub seat recommended ) Transportation Type: Auto GAS FITTER APPRENTICE met with pt and spouse to discuss d/c planning. Pt denies needing HH at d/c, states his canassist with drain care- confirmed this with as well. Pt reports having walker at home, to confirm whether or not it has wheels. Pt denies needing tub seat. No further needs indicated. GAS FITTER APPRENTICE to sign off. Aleshia Van, PT - 01/25/2017 9:45 AM ESTFormatting of this note may be different from the original. Physical Therapy PHYSICAL THERAPY EVALUATION NOTE Physical Therapy Assessment Body Structure and Function: Musculoskeletal impairment, Integumentary impairment, Cardiopulmonary impairment Explain Impairments: decreased activity tolerance, balance, new abdominal incision with abdominal precautions which modify functional mobility, generalized weakness. Activities and Participation: Mobility limitation, Balance limitation and fall risk Explain Limitations: gait/transfers/bed mobility/ stair climbing, activity tolerance, new abdominal precautions that modify how functional mobility occurs. Environmental Factors: Home situation, Family/caregiver support Explain Environmental Factors: 1 level home with 4 step entry, lives with Personal Factors: Awareness of own capacity and performance, Educational level Explain Personal Factors: follows commands without difficulty, motivated, engaged in rehab process, receptive to teaching. Rehab Potential: Good, For goals Activity Tolerance: Tolerates 10 - 20 min activity with multiple rests Skilled Therapy Needs After Discharge Anticipate Resolution of Current Assessment Limitations Including: Mechanical Barriers Are Skilled Therapy Services Needed After Discharge: Yes Intensity of Skilled Therapy: 2-3 days per week Anticipated Duration of Skilled Therapy: Duration 10 - 30 days DME Recommendation: None Outcomes Measures Prior Function - Basic Mobility Raw Score: 24 Points Prior Function - Basic Mobility % Impaired: 0% functionally impaired AM-PAC - Basic Mobility Raw Score: 18 Points AM-PAC - Basic Mobility % Impaired: 40.47% functionally impaired Therapy Precautions Orthotic Devices: No General Rehab Precautions: Abdominal, Fall risk (3 abdominal drains) Bed Mobility Rolling: Contact guard Supine to Sit: Min (flat bed, no rails) Transfers Sit to Stand: Min Archival Studies Professor: 1 person, Gait belt, Wheeled walker Gait/Locomotion Gait Assistance: Contact guard Assistive Device: Wheeled walker Distance: 4 Feet (few steps bed to chair) Pattern: R decreased step length, L decreased step length, Forward flexed Home Living Type of Home: House Home Layout: One level, Stairs to enter with rails (4 step entry) Bathroom Shower/Tub: Walk-in shower Home Equipment: (does not use device) Prior Level of Function Level of [place]: Independent with ADLs and functional transfers, Independent with homemaking with ambulation Lives With: Spouse Vocational: Retired Comments: mows own yard, cleans his gutters, drives Past Medical History: Diagnosis Date ??? Arthritis ??? BPH (benign prostatic hyperplasia) ??? Cancer (HCC) skin cancer ??? Cataract ??? Chemotherapy adverse reaction 12/01/2016 has had 2 treatments-- getting port now. Had adverse reaction to zofran after first treatment ??? Chronic diarrhea current problem (07/21/16), stool specimen positive for blood ([facility]) per pt ??? Colon polyps [...] Surgeon: Kota Vences MD; Location: [facility] Main OR; Service: ??? COLONOSCOPY 2010 benign polyps found ??? COLONOSCOPY N/A 07/27/2016 Procedure: COLONOSCOPY; Surgeon: Kota Vences MD; Location: [facility] Endo; Service: ??? PROSTATE BIOPSY ??? SINUS SURGERY 2003 ??? WHIPPLE PROCEDURE N/A 01/24/2017 Procedure: WHIPPLE PROCEDURE; Surgeon: Tati Guillen MD; Location: [facility] Main OR; Service: PHYSICAL THERAPY TREATMENT NOTE Total Treatment Time (Total Session Time): 37 Minutes Timed Code Treatment Minutes: 10 Minutes Neuromuscular Reeducation Gait Training Skilled Intervention: Trial #2: amb 20 feet with ww and CG, verbal instruction for safe use of ww, cues for upright posture. Therapeutic Activities Bed Mobility Skilled Intervention: pt verbally instructed in log roll technique. Tactile cues for execution to appropriately adhere to abdominal precautions during supine to sit. Transfers Skilled Intervention: Subsequent trials were CG assist after instruction in pre transfer positioningand hand placement for optimal performance. Therapeutic Exercises For complete objective data, detailed plan of care and patient education refer to: PT EVALUATION flow sheet, PT TREATMENT flow sheet, patient Plan of Care, Plan of Care progress note, and Patient Education. This note stands as the current Discharge Summary upon patient discharge from the hospital or completion of Physical Therapy PlanClara Shetty OT - 01/25/2017 9:35 AM ESTFormatting of this note may be different from the original. Occupational Therapy OCCUPATIONAL THERAPY EVALUATION NOTE Occupational Therapy Assessment Body Structure and Function: Musculoskeletal impairment, Cardiopulmonary impairment Explain Impairments: s/p Whipple procedure;post op pain, abdominal precautions, decreased activity tolerance, stand balance, functional transfers Activities and Participation: Mobility limitation, Balance limitation and fall risk, ADL/IADL limitation Explain Limitations: self care, light IADLs, bed mobility,home/community mobility. modification of tasks with use of AE PRN to maximize safety/independence and adherence to precautions Environmental Factors: Home situation, Family/caregiver support Explain Environmental Factors: lives with in 1 story home with 4STE. uses rollator in community; unknown physical assist available Personal Factors: Awareness of own capacity and performance Explain Personal Factors: motivated for return to baseline. min cues for implementation of new abdominal precautions Rehab Potential: Excellent Activity Tolerance: (appropriate for session; brief rest breaks) Skilled Therapy Needs After Discharge Anticipate Resolution of Current Assessment Limitations Including: Pain, Mechanical Barriers Are Skilled Therapy Services Needed After Discharge: Yes (with hopeful progression) Intensity of Skilled Therapy: 2-3 days per week Anticipated Duration of Skilled Therapy: Duration 10 - 30 days DME Recommendation: Tub seat DME Rationale: Patient's condition prevents him/her from accomplishing ADL without recommended equipment, Patient's condition creates an increased risk of safety hazard without recommended equipment, Unreasonable time frame to complete ADL without recommended equipment, Patient will require increased level of care without recommended equipment Outcomes Measures Prior Function Daily Activity: Raw Score: 24 Prior Function Daily Activity % Impaired: 0% functionally impaired AM-PAC Daily Activity: Raw Score: 16 AM-PAC Daily Activity % Impaired: 53.32% functionally impaired Therapy Precautions Orthotic Devices: No General Rehab Precautions: Abdominal, Fall risk (3 abdominal drains) Cognition Overall Cognitive Status: Within Functional Limits Arousal/Alertness: Appropriate responses to stimuli Orientation Level: Oriented X4 Executive functioning: WFL Safety Judgment: Good awareness of safety precautions Problem Solving: Assistance required to implement solutions Attention: Attends to quiet environment Hearing Status: WFL Social Interaction: Cooperative, Appropriate Skilled Intervention: reviewed abdominal precautions with patient with occasional cues for reinforcement of education during functional tasks ADL/IADL Toileting : (blunt) Bed Mobility Supine to Sit: Min Sit to Supine: (not observed; in recliner) Functional Transfers Sit to Stand: Min, Contact guard (x2 trials) Bed to Chair Transfers: Contact Guard (x2 brief trials) Skilled Intervention: educated patient on pacing with implementation of brief seated rest break [id number] pursed lip breathing during trial. cue for safe hand placement with use of new device with good return demo on 3/4 trials. Exercise Interventions Home Living Type of Home: House Home Layout: One level, Stairs to enter with rails (4 step entry) Bathroom Shower/Tub: Walk-in shower Home Equipment: (does not use device) Prior Level of Function Level of [place]: Independent with ADLs and functional transfers, Independent with homemaking with ambulation Lives With: Spouse Vocational: Retired Comments: mows own yard, cleans his gutters, drives Past Medical History: Diagnosis Date ??? Arthritis ??? BPH (benign prostatic hyperplasia) ??? Cancer (HCC) skin cancer ??? Cataract ??? Chemotherapy adverse reaction 12/01/2016 has had 2 treatments-- getting port now. Had adverse reaction to zofran after first treatment ??? Chronic diarrhea current problem (07/21/16), stool specimen positive for blood ([facility]) per pt ??? Colon polyps [...] Surgeon: Kota Vences MD; Location: [facility] Main OR; Service: ??? COLONOSCOPY 2010 benign polyps found ??? COLONOSCOPY N/A 07/27/2016 Procedure: COLONOSCOPY; Surgeon: Kota Vences MD; Location: [facility] Endo; Service: ??? PROSTATE BIOPSY ??? SINUS SURGERY 2004 ??? WHIPPLE PROCEDURE N/A 01/24/2017 Procedure: WHIPPLE PROCEDURE; Surgeon: Tati Guillen MD; Location: [facility] Main OR; Service: For complete objective data, detailed plan of care and patient education refer to:OT EVALUATION flowsheet,OT TREATMENT flow sheet, patient Plan of Care, Plan of Care progress note, and Patient Education. This note stands as the current Discharge Summary upon patient discharge from the hospital or completion of Occupational Therapy Plan of Care.Elizabeth Abreu, RD - 01/25/2017 8:52 AM ESTAssociated Order(s): IP CONSULT TO DIETITIAN Formatting of this note may be different from the original. Nutrition Care Initial Assessment Reason for visit: Physician Consult for TF initiation/management Nutrition Diagnosis: Inadequate oral food/beverage intake related to Whipple and NPO as evidenced by need for enteral nutrition support Nutrition Intervention/Prescription: Initiate Enteral Nutrition-Impact Peptide 1.5 @10ml/hr, goal 50ml/hr (1800 kcals, 113g PRO, 924ml free water) Await return of bowel fxn PO trial of clears as able per surgery team Nutrition Goals: Source of Nutrition in next 24-48 hrs Start Date:01/25/2017 Expected End Date:01/29/2017 Pt will receive 80% of estimated enteral nutrition goal Start Date:01/25/2017 Expected End Date:01/29/2017 Nutrition Education: No needs at this time 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 Given Impact Advanced Recovery ONS preop, drank all 15 cartons. Objective: 76 y.o. Male Dx: pancreatic CA Pertinent clinical information: s/p pylorus-sparing Whipple, PV repair x2, GJ tube 01/24. DC NGT today and start trophic TF via J tube PMHx: GERD, COPD, pancreatic CA, chemotx Height: 5' 8 Current weight: 71.8 kg (158 lb 4.6 oz) BMI Body mass index is 24.07 kg/(m^2). Weight History: ~9-10# wt loss since July Wt Readings from Last 5 Encounters: 01/24/17 71.8 kg (158 lb 4.6 oz) 01/10/17 74.2 kg (163 lb 9.3 oz) 01/04/17 74.2 kg (163 lb 9.3 oz) 01/04/17 74.2 kg (163 lb 9.6 oz) 12/28/16 74.9 kg (165 lb 3.2 oz) Recent Labs 01/24/17 0415 01/24/17 1408 01/25/17 0232 NA 135 136 136 K 3.8 4.1 4.0 BICARB 26 26 27 GLUCOSE 161* 223* 121* BUN 9 10 11 CREATININE 0.45* 0.49* 0.44* MG 2.0 1.7 1.8 PHOS 3.4 2.6 2.9 Lab Results Component Value Date ALBUMIN 2.9 (L) 01/25/2017 Diet NPO Except: ICE CHIPS Difficulty Chewing/Swallowing: No Meds: SSI, protonix BG range: 140-222 x24hrs Skin Integrity: Surgical incision Physical Appearance: well nourished GI function: G-tube: SD; no flatus IVF: D5LR @125ml/hr Nutrition risk level: high Estimated Energy Needs Total Energy Estimated Needs: 1352-5747 Method for Estimating Needs: 25-28 kcals/kg Total Protein Estimated Needs: 86-107g Method for Estimating Needs: 1.2-1.5g/kg Assessed by: Elizabeth Abreu RD, LD, [facility] Vocera: [phone] Daivd Dumont MD - 01/24/2017 3:00 PM ESTFormatting of this note may be different from the original. Surgical Critical Care Consult Note Assessment and Plan 76 y.o.??male??w/ PHx GERD, COPD, BPH, tobacco use, umbilical hernia, and known pancreatic adenocarcinoma s/p whipple 01/24/2017 w/ Dr. Guillen. 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: dilaudid/bupivicaine epidural CV: HDS Pul: 3L nc Renal: Cr 0.49 (0.45), D5LR @ 125cc/hr GI: G-J, NPO Heme: Hgb 11.4 (10.8), Plt 218 (211) ID: WBC 11.5 (5.4) Endo: SSI Nut: NPO Skin: inc covered PPX: protonix, SCDs, lovenox TLD: PIVs, 24Fr Miguel Mcdonald, G-J, NG, pancreatic stent Code: Full Reason for Consultation: Post-operative care History of Presenting Illness: 76 y.o.??male??w/ PHx GERD, COPD, BPH, tobacco use, umbilical hernia, and known pancreatic adenocarcinoma s/p 3 treatments of neoadjuvant chemotherapy (stopped early 2/2 side effects) who is s/p whipple procedure 01/24/2017 w/ Dr. Guillen. Per record the patient was diagnosed w/ pancreatic cancer 10/2016. He underwent EUS 10/31/2016 w/ path c/w pancreatic adenocarcinoma. Initially mass felt to be borderline resectable and neoadjuvant chemotherapy w/ gemcitabine and Abraxane x 3 cycles, which he didnot tolerate. Intra-operative blood loss for the surgery was estimated at 200cc. Review of Systems: The following system(s) were reviewed. Pertinent positive and negative findings are noted in the HPI. Const Eyes ENT Resp CV GI Neuro Musc Skin Psych Endo Allergy Heme/Lymph Unable to obtain review of systems due to intubation/neurologic status. Past Medical, Surgical, Family, and Social History: Past Medical History: Diagnosis Date ??? Arthritis ??? BPH (benign prostatic hyperplasia) ??? Cancer (HCC) skin cancer ??? Cataract ??? Chemotherapy adverse reaction 12/01/2016 has had 2 treatments-- getting port now. Had adverse reaction to zofran after first treatment ??? Chronic diarrhea current problem (07/21/16), stool specimen positive for blood ([facility]) per pt ??? Colon polyps [...] Surgeon: Kota Vences MD; Location: [facility] Main OR; Service: ??? COLONOSCOPY 2009 benign polyps found ??? COLONOSCOPY N/A 07/27/2016 Procedure: COLONOSCOPY; Surgeon: Kota Vences MD; Location: [facility] Endo; Service: ??? PROSTATE BIOPSY ??? SINUS SURGERY 2003 Family History: Family History Problem Relation Age of Onset ??? Hypertension Mother ??? Stroke Mother ??? Thyroid disease Mother ??? Cancer Mother lung ??? Cancer Father Lung, malignant neoplasm of the large intestine ??? Cancer Sister colon cancer Unable to obtain due to ventilated and/or neurologic status Social History: Social History Social History ??? Marital status: [...] ??? Not on file Social History Narrative Unable to obtain due to ventilated and/or neurologic status Allergies and Medications: Allergies: Allergies Allergen Reactions ??? Ciprofloxacin Hives Hives in the 80s ??? Penicillin Hives Hives in the 80s ??? Tetracycline ??? Zofran (As Hydrochloride) [Ondansetron Hcl] Hives Itching, hives, shortness of breath, sweating Select home or hospital medications: Prior to Admission medications Medication Sig Start Date End Date Taking? Authorizing Provider aspirin 81 MG EC tablet Take 1 tablet by mouth daily . Yes Historical Provider, diphenhydrAMINE (BENADRYL) 25 mg capsule Take 25 mg by mouth every 6 (six) hours as needed for itching. Yes Historical Provider, mometasone-formoterol (DULERA) 200-5 mcg/actuation HFAA Inhale 2 puffs 2 (two) times a day. 01/11/12 Yes Historical Provider, omeprazole (PRILOSEC) 40 MG capsule Take 1 (one) capsule (40 mg total) by mouth daily. 08/18/16 08/18/17 Yes Jus Allison MD oxygen Inhale 2.5 L/min nightly. Yes Historical Provider, methylPREDNISolone (MEDROL DOSEPACK) 4 mg tablet Reasons: PT has at home, but not taking at this time. 12/13/16 Historical Provider, ] Exam: Vital Signs: Temp: [96.1 ??F (35.6 ??C)-98.7 ??F (37.1 ??C)] 96.1 ??F (35.6 ??C) Heart Rate: [65-93] 88 Resp: [11-18] 18 BP: (113-172)/(53-79) 127/60 Arterial Line BP: (99-151)/(47-89) 141/55 Intake/Output Summary (Last 24 hours) at 01/24/17 1606 Last data filed at 01/24/17 1500 Gross per 24 hour Intake 3305.93 ml Output 975 ml Net 2330.93 ml General: Awake and alert, NG in place Head: normocephalic, atraumatic Eyes: no scleral icterus Neck: trachea midline, soft Cardiovascular: hemodynamically stable, palpable radial pulses Pulmonary: respirations unlabored on nc O2 Abdomen: soft, ATTP, inc covered, no peritoneal signs, ingris, G-J, panc stent Extremities: no obvious deformities Skin: warm, dry and intact Neurological: WOO Laboratory Data and Critical Care Checklist: Laboratory Data: Pertinent lab data reviewed Radiology: Pertinent lab data reviewed Microbiology: Pertinent lab data reviewed No results for input(s): PHART, NRS0DDX, PO2ART, J6YNOHOC, RESPRATE, TIDALVOL, PEEP, L0HEVEMW in thelast 72 hours. Recent Labs 01/23/17 1330 01/24/17 0415 01/24/17 1408 WBC 6.50 5.48 11.52* HGB 12.1* 10.8* 11.4* PLT 242 211 218 Recent Labs 01/23/17 1330 01/24/17 0415 01/24/17 1408 NA 131* 135 136 K 4.3 3.8 4.1 CL 97* 101 100 BICARB 24 26 26 BUN 15 9 10 CREATININE 0.53* 0.45* 0.49* GLUCOSE 109* 161* 223* PHOS -- 3.4 2.6 MG -- 2.0 1.7 OSCAR -- 4.9 4.8 CALCIUM 9.1 8.4 8.3* BILITOT 0.4 0.4 0.4 ALKPHOS 64 54 57 ALT 17 13 79* AST 23 15 80* PROT 6.9 5.6* 5.7* ALBUMIN 3.9 3.3 3.1* Recent Labs 01/23/17 1330 01/24/17 0415 01/24/17 1408 INR 1.0 1.1 1.1 David Dumont MD Surgery PGY-2 Pager: [phone] 01/24/2017 4:06 PM Associated attestation - Tati Guillen MD - 01/25/2017 7:05 AM ESTResident's H&P note reviewed. I personally examined this patient and reviewed all pertinent data. A thorough examination of remaining 10 point review of systems did not reveal any pertinent positive or negative findings except those described in the resident's note. Doing well ,AVSS NGT with bilious output, remove NGT today, Gtube to gravity. Wound clean and dry, CODIE with SS output. Start Jtube feeds, KUB with GJ in place. Labs reviewed and stable. Ok to tx to floor tpoday, cont aggressive pulmonary toilet and IS. OOB to Lenora Gutierrez MD - 01/24/2017 9:59 AM ESTINTRAOPERATIVE CONSULTATION Frozen Section Diagnosis: Specimen A (AFS1): Pancreatic duct margin: Atypical glands, suspicious for adenocarcinoma. Specimen B (BFS1): SMA margin: Adenocarcinoma. Betty Coronado, FINGER BUFFS ASSEMBLER - 01/23/2017 3:08 PM ESTAssociated Order(s): IP CONSULT TO HOSPITALISTFormatting of this note may be different from the original. [facility] Consult Note 01/23/17 Elbert Espinosa 1940 [id number] Assessment/Plan: Elbert Espinosa is a 76 y.o. male with a history of tobacco abuse, COPD, BPH and pancreatica adenocarcinoma who presented to [facility] 01/23/2017 for planned whipple procedure per Dr. Guillen (surg/onc). [facility] was consulted for medical management. 1. Pancreatic adenocarcinoma: Diagnosed 10/2014. Stage IB, S/p 3 treatments of neoadjuvant chemotherapy stopped early due to side effects. Dr. Guillen (surg/onc) planning whipple procedure 01/23/17. Management per surgery. 2. Pre-op evaluation: 76 year old male patient with good functional capacity and no known history ofCAD. EKG 01/13/17 NSR without evidence of acute ischemia. Denied chest pain. 3. Hyponatremia: Baseline unclear. NA 131 on admission. Suspect SIADH due to above. Continue to monitor labs. 4. COPD: Per history. Not on home 02. Not in acute exacerbation. Continued home inhalers. 5. Smoker: Active. Cessation advised. 6. DVT Prophylaxis: per surgery. Thank you for allowing us to participate in the care of your patient. Do not hesitate to contact us with questions. Before 6 pm, please contact the provider listed in the treatment team. After 6 pm, please contact [phone] for any questions or concerns. Patient Arrived From: Home Expected Disposition: TBD Based on current clinical information, the expected discharge date is: TBD Chief Complaint / Reason for Consult: Pancreatic cancer History of Present Illness: Elbert Espinosa is a 76 y.o. male with a history of tobacco abuse, COPD, BPH and pancreatica adenocarcinoma who presented to [facility] 01/23/2017 for planned whipple procedure per Dr. Guillen (surg/onc). [facility] was consulted for medical management. History obtained per patient who reported diagnosed with pancreatic cancer in October of 2016, has undergone 3 rounds of chemo which had to be stopped due to severe side effects. He denied any history of CAD, denied any chest pain or dyspnea. He is able to walk several blocks without chest pain, does have some chronic dyspnea associated with his COPD. No reported recent fevers, chills, urinary symptoms or cough. ROS: 10 systems were reviewed and negative, except as noted above. Past Medical, Surgical, Social, Family History: Past Medical History: Diagnosis Date ??? Arthritis ??? BPH (benign prostatic hyperplasia) ??? Cancer (HCC) skin cancer ??? Cataract ??? Chemotherapy adverse reaction 12/01/2016 has had 2 treatments-- getting port now. Had adverse reaction to zofran after first treatment ??? Chronic diarrhea current problem (07/21/16), stool specimen positive for blood ([facility]) per pt ??? Colon polyps [...] Surgeon: Kota Vences MD; Location: [facility] Main OR; Service: ??? COLONOSCOPY 2010 benign polyps found ??? COLONOSCOPY N/A 07/27/2016 Procedure: COLONOSCOPY; Surgeon: Kota Vences MD; Location: [facility] Endo; Service: ??? PROSTATE BIOPSY ??? SINUS SURGERY 2003 Social History Social History ??? Marital status: [...] ??? Not on file Social History Narrative Family History Problem Relation Age of Onset ??? Hypertension Mother ??? Stroke Mother ??? Thyroid disease Mother ??? Cancer Mother lung ??? Cancer Father Lung, malignant neoplasm of the large intestine ??? Cancer Sister colon cancer Current Medications: Medication list reviewed with patient. Please see MAR for full details. Physical Exam: BP 147/75 Pulse 71 Temp 97.5 ??F (36.4 ??C) (Oral) Resp 14 SpO2 97% General: NAD Eyes: EOMI ENT: neck supple Cardiovascular: Regular rate, no peripheral edema Respiratory: Diminished, no use of accessory muscles Gastrointestinal: Soft, non tender, +BS, obese Genitourinary: no suprapubic tenderness Musculoskeletal: No edema Skin: warm, dry Neuro: Alert and oriented x 3, non focal exam Psych: Mood appropriate Labs, Imaging, and Studies reviewed: Lab Results Component Value Date GLUCOSE 109 (H) 01/23/2017 CALCIUM 9.1 01/23/2017 NA 131 (L) 01/23/2017 K 4.3 01/23/2017 CL 97 (L) 01/23/2017 BUN 15 01/23/2017 CREATININE 0.53 (L) 01/23/2017 Lab Results Component Value Date WBC 6.50 01/23/2017 HGB 12.1 (L) 01/23/2017 HCT 36.5 (L) 01/23/2017 MCV 95.1 01/23/2017 PLT 242 01/23/2017 Lab Results Component Value Date ALT 17 01/23/2017 AST 23 01/23/2017 ALKPHOS 64 01/23/2017 BILITOT 0.4 01/23/2017 Lab Results Component Value Date INR 1.0 01/23/2017 Associated attestation - Adithya Hernandez MD - 01/23/2017 11:32 PM EST Patient seen and examined independently. Labs, imaging reviewed independently. Discussed case with DOROTHY Coronado. Agree with plan as below. Patient LOW risk for surgical intervention and okay to proceed without further ischemic workup. We will continue to follow post-operatively.in this encounter Miscellaneous Notes Pharmacy Note - Mel Allen, Carri.Ph. - 02/05/2017 3:43 PM ESTFormatting of this note may be different from the original. Pharmacotherapy Note: Discharge Education Target Disease State: Health 4 LACE score: 16 Based on the above assessment, a pharmacist has provided face to face discharge medication educationto the patient including the following: -Proper administration (dose, schedule, technique) -Purpose/indication -Expected side effects -Importance of adherence In addition to the above face to face medication education, the following were also provided/completed: -Medication reconciliation activities -Medication profile review -Compliance aid/medication list -Written instructions -Other (specify): Pt and do not wish him to be on Lovenox and do not understand why he needs somany GI meds. The physician is coming up to discuss Lovenox use with them. I reviewed bowl meds and their uses w/ pt and explained that since he is on a narcotic he will likely need a laxative. The patient/family???s understanding of the prescribed medication therapy was demonstrated by use ofeffective teach back techniques. He was directed to resources such as the outpatient physician???s office or hispharmacy if additional questions arise after discharge. Elbert Espinosa Home Medication Instructions NOEMY:[id number] Printed on:02/05/17 7315 Medication Information Morning Noon Evening Bedtime Reason for Use aspirin 81 MG EC tablet Take 1 tablet by mouth daily . X Clot prevention diphenhydrAMINE (BENADRYL) 25 mg capsule Take 25 mg by mouth every 6 (six) hours as needed for itching. Itching docusate sodium (COLACE) 100 MG capsule Take 1 (one) capsule (100 mg total) by mouth 2 (two) times a day ; while taking narcotic pain medication. Hold for loose stools.. X X Constipation enoxaparin (LOVENOX) 40 mg/0.4 mL Syrg Inject 0.4 mL (40 mg total) under the skin daily for 17 days. X Clot prevention magnesium hydroxide (MOM) 400 mg/5 mL Susp Take 30 mL (2,400 mg total) by mouth daily. X Constipation metoclopramide (REGLAN) 10 MG tablet Take 1 (one) tablet (10 mg total) by mouth 4 (four) times a day with meals and nightly. X X X X Nausea/motility mometasone-formoterol (DULERA) 200-5 mcg/actuation HFAA Inhale 2 puffs 2 (two) times a day. X X COPD omeprazole (PRILOSEC) 40 MG capsule Take 1 (one) capsule (40 mg total) by mouth daily. X Reflux oxyCODONE (ROXICODONE) 5 MG immediate release tablet Take 1 (one) tablet to 2 (two) tablets (5-10 mg total) by mouth every 4 (four) hours as needed. [facility] - Idania Hay, PT - 02/05/2017 3:02 PM EST PHYSICAL THERAPY VISIT VARIANCE NOTE Attempted to see patient at this time, but unable secondary to: PT Visit [facility]: Unable to Participate. Pt preparing for d/c home. Decline questions or concerns prior. Declines need for PT session at this time. Will follow up as appropriate. [facility] - Satnam Idania, PT - 02/02/2017 12:44 PM EST PHYSICAL THERAPY VISIT VARIANCE NOTE Attempted to see patient at this time, but unable secondary to: PT Visit [facility]: Refused. Pt up in room, declines PT session at this time. States he will walk later. Will follow up as appropriate. [facility] - SegoviaMarin jarrett Ana, VISUAL DEVELOPER - 01/31/2017 11:43 AM EST OCCUPATIONAL THERAPY VISIT VARIANCE NOTE Attempted to see patient at this time, but unable secondary to: OT Visit [facility]: Refused (politely due to bouts of diarea this AM). Will follow up as appropriate. Op Note - Tati Guillen MD - 01/24/2017 1:22 PM EST PREOPERATIVE DIAGNOSIS Pancreatic adenocarcinoma. POSTOPERATIVE DIAGNOSIS Pancreatic adenocarcinoma. PROCEDURES 1.Whipple procedure, pylorus sparing. 2.Anastomosis of extrahepatic bile duct to gastrointestinal tract. 3.Portal lymphadenectomy. 4.Suture ligation of gastroduodenal artery. 5.Suture ligation of right gastric artery. 6.Portal vein repair x2. 7.Pancreatography with diluted methylene blue. 8.Excision of additional centimeter of pancreas or partial pancreatectomy. 9.Gastrojejunostomy tube. 10.Omental flap. ESTIMATED BLOOD LOSS 200. INTRAVENOUS FLUIDS 2.2 L. URINE OUTPUT 200 mL. FINDINGS Specimens of above findings consistent with pancreatic adenocarcinoma in the head of the pancreas with slight portal vein involvement more toward the superior mesenteric vein side. DRAINS 24-Kyrgyz Ingris drain in the right upper quadrant, pancreatic stent, gastrojejunostomy. COMPLICATIONS None. CONDITION Stable. INDICATION FOR PROCEDURE A 76-year-old male who presented to this hospital with a new diagnosis of pancreatic cancer. He wasrecommended for neoadjuvant chemotherapy. Unfortunately, he was not able to tolerate chemotherapy as he had severe toxicities. He was referred back for immediate surgical intervention. Metastatic workup has been performed with CAT scan of chest, abdomen, and pelvis, MRI of the liver, as well as PET-CT. There was no evidence of any metastatic disease. The risks, benefits, and alternatives of the procedure including portal vein resection, were discussed with the patient and his family. Mortalityrisk of less than 3% as well as morbidity of 30% to 40% is discussed with patient. Immunonutrition in the form of Impact has been given to the patient. All questions answered to his satisfaction. Wedecided to proceed today. PROCEDURE IN DETAIL Informed consent was obtained, patient brought to the operating table. Time-out was called, anesthesia induced, intubation performed without difficulty. Epidural was placed by Anesthesia. Blunt was inserted sterilely by nursing staff. Abdomen was prepped and draped in standard surgical fashion. Bilateral subcostal incisions carried down with a 10 blade down to subcutaneous tissue using electrocautery. I entered the abdominal cavity under direct vision. Bimanual examination of the liver reveals no evidence of masses. There were no peritoneal masses and no omental nodules. A generous Helder maneuver was performed, completely the duodenal and the head of the pancreas from the retroperitoneum. A hard mass was felt at the head of pancreas with what appears to be possible lateral portal vein superior mesenteric vein involvement. At this time, we took down the hepatic flexure and mobilized the colon out of our way. Again, generous Helder maneuver was performed until the ligamentof Treitz was taken from the right upper quadrant. The lesser sac was entered with electrocautery and Harmonic Scalpel. We decided to perform a pylorus-sparing Whipple procedure, since this tumor wasmore an uncinate process and did not involve the stomach or the pylorus. The pars flaccida was incised with electrocautery. In the avascular plane behind the stomach, the attachments of the stomach to the superior surface of the pancreas were taken with electrocautery. The portal lymphadenectomy would be performed and passed en bloc with specimen, but the hepatic artery lymph node was removed and passed off for routine. This exposed the hepatic artery and the gastroduodenal and the right gastrictake-off. These were going directly into our specimen into our tumor. Both had to be suture ligated with 2-0 silk proximal, 2-0 silk distal, and divided between the scissors. Extra clip placed on the proximal side in case of postoperative bleeding for easy graphic identification by Intervention Radiology. This exposed the superior portion of the portal vein. Dissection under the neck of the pancreas performed without any difficulty or any attachments. Inferiorly, I identified the superior mesenteric vein going into the neck of the pancreas, and dissection was completed, and umbilical tape was placed for traction under the neck of the pancreas. Cholecystectomy would be performed. Cystic artery and cystic duct were isolated, doubly clipped proximal, clipped distal, and divided with Metzenbaum scissors. Gallbladder removed from the gallbladder fossa with electrocautery and passed off as spe cimen. Attention then turned to the gallbladder fossa where hemostasis was achieved using electrocautery. The bile duct was dissected superior to the insertion of the cystic duct and the common hepatic duct and transected with electrocautery. Bile cultures were taken in the case of a postoperative i nfectious complication. A complete portal lymphadenectomy and the lymph nodes lateral to the right portal vein are taken down with a Harmonic Scalpel and left en bloc with the main specimen. At this time, the ligament of Treitz was taken down again, and about 10 cm distal to the jejunum was transected with ZAYNAB 75 blue. The mesentery was taken down with Harmonic Scalpel, passed under the ligament of Treitz to the right upper quadrant. At this time, we transected the neck of the pancreas with electrocautery, identifying the superior and inferior pancreaticoduodenal arteries, suture ligated with 3-0 silk. The pancreatic duct measured about 3 mm. The pancreatic duct margin was cut off with a 15 blade and sent down for frozen section that would reveal atypical glands consistent with adenocarcinoma, so an extra centimeter of pancreas was taken off with electrocautery and passed off as specimen.A stitch was placed on the most distal margin, and this would be our final pancreatic margin. Attention was then turned toward the head of the pancreas where we completely removed this from the lateral side of the portal vein; superiorly we were okay, inferiorly this was where there was attachment and partial involvement of the lateral wall. This was very carefully, but there was some bleeding from the portal vein secondary to tumor attachment. This was suture repaired twice with 4-0 silk. The tumor was detached from the vessel and kept en bloc. The uncinate process was transected with [place] vascular loads until the specimen was removed. At this point, this was marked with colorsfor pathologic evaluation, green for bile duct, yellow for pancreatic margin, orange for uncinate, and blue for portal vein. Again, an extra portion of the pancreas had been removed distally and this was passed off separately routinely. After complete removal, examination of the SMA was performed, verifying that we had gone a millimeter from the superior mesenteric artery, completely removing any soft tissue. There was no further bleeding from the portal vein repairs. At this time, we decided to proceed with our reconstruction. The jejunum that was transected 10 cm from the ligament of Treitz to the staple line was over-sutured with a 3-0 chromic. In the avascular planes for the mesentery and right colon, a window was created, and the loop of bowel was passed retrocolic into the right upperquadrant. A duct to mucosa pancreaticojejunostomy would be created, enterotomy with electrocautery,and then antimesenteric border, another enterotomy with electrocautery. A pediatric neurosurgery stent was used as a pancreatic stent, placed about an inch into the pancreas. On the antimesenteric border, a pursestring was created and tied down to prevent migration. The knot was removed before closure to allow for easy removal in the postoperative period. A direct duct to mucosa was created with 3-0 silk posteriorly and 3-0 silk anteriorly. Then, we did a pancreatography with diluted methylene blue with 10 mL. There was extravasation anteriorly and further sutures had to be placed until therewas no further extravasation, verifying a watertight anastomosis. At this point, anastomosis of extrahepatic bile duct to GI tract was created 10 cm distal to the pancreatic jejunostomy. An enterotomy with electrocautery was created, and a direct wwqz-qo-bmitzz anastomosis was created with 5-0 Monocryl. The duct was small, measuring about 4 mm in size. The knot thickened as the patient did not have a biliary obstruction. Once we verified the anastomosis was correct and there was active flow of bile through the anastomosis, we secured the loop of bowel going through the mesenteric defect of theright colon to the surrounding tissue with 3-0 silk to prevent migration. In antecolic fashion, a gastrojejunostomy would be created; this was a pylorus-sparing Whipple. Pylorus had been transected previously with ZAYNAB 75 blue. Enterotomy with electrocautery in the small bowel and a 3 cm enterotomy was created with ZAYNAB 75 blue. The staple line of the path to pylorus was removed with electrocautery. A 2 layer anastomosis was created posterior with 3-0 silk, a runner inner mucosal layer with 3-0 chromic. Before completion of the anterior layer, a gastrojejunostomy tube would be created. In the proximal antrum, a 2-0 silk pursestring was created, gastrotomy with electrocautery, stab wound in the left upper quadrant, and a gastrojejunostomy tube was placed through the stomach distally into the efferent limb. This was passed until there were no kinks, no twists, no resistance, and easily flushed. The balloon was insufflated. The pursestring was tied down. The stomach was tacked to the anterior abdominal wall with 3-0 silk. The bumper on the gastrostomy tube was pushed down to the skin tothe level of 4 and secured to skin with 2-0 silk. Anterior layer of the gastrojejunostomy wad completed with a running canal stitch of 3-0 chromic imbricated with 3-0 silk Lembert stitches. After this, the stitch in the pancreatic stent was removed to allow for easy removal in the postoperative period. Stab wound in the right lower quadrant where a 24-Kyrgyz Ingris drain was introduced and placed behind the hepaticojejunostomy as well as superior to our pancreatic anastomosis in the case of a leak, secured to skin with 2-0 silk. Stab wound in the right upper quadrant where the pancreatic stent was brought out secured to skin with 3-0 silk. At this time, we again verified all surgical beds, verifying there was no evidence of bleeding. FloSeal was applied on the surgical beds prophylactically. At this time, a lap count was correct x2. We decided to close the abdominal cavity. Before this, a flap omentum was mobilized off the transverse colon and placed over both our anastomoses, hepaticojejunostomy, and pancreaticojejunostomy's omental flap. This would allow for containment in the case of anastomotic leak. This was secured to surrounding tissues with 3-0 silk. Again, lap count was correct x2, and we decided to close the abdominal cavity. Posterior fascial layer closed with #1 running Vicryl, anterior layer with 0 loop PDS, skin closed with zach. Instrument count, needle count,and sponge count correct at the end of the case. Patient tolerated the procedure well, extubated, and transferred to recovery room in stable condition. Brief Op Note - Bruce Green MD - 01/24/2017 12:03 PM ESTFormatting of this note may be different from the original. Brief Post Operative Note Patient Name: Elbert Espinosa : 1940 (76 y.o.) Date of Service: 01/24/2017 CSN: [id number] Procedure(s): WHIPPLE PROCEDURE Pre-Operative Diagnoses: * C25.0 Post-Operative Diagnoses: * Pancreatic adenocarcinoma (HCC) [C25.9] Surgeon(s) and Role: * Tati Guillen MD - Primary * Bruce Green MD - Resident - Assisting Anesthesiologist: Adithya Valverde MD Work Environment Safety Inspector: Rhona Condon RN Relief Work Environment Safety Inspector: Rachel Blount RN Scrub Person: Shelia Samuel??jeny Flanagan RNvocational nurseEquipment Operator/Laborer/Supervisor: Les Richmond Operative findings: whipple procedure, 24 japanese-ingris drain, pancreatic stent, Intra and immediate post-operative complications: none Type of anesthesia used: general, epidural Estimated blood loss: 200 mL Estimated urine output: 200 mL Specimen(s): ID Type Source Tests Collected by Time Destination 1 : Body Fluid Bile BODY FLUID AEROBIC CULTURE, BODY FLUID ANAEROBIC CULTURE Tati Guillen MD 01/24/2017 0909 A : Tissue Gallbladder TISSUE EXAM Tati Guillen MD 01/24/2017 0906 B : HEPATIC ARTERY LYMPH NODE Tissue Lymph Node, Please Specify TISSUE EXAM Tati Guillen MD 01/24/2017 0921 C : MARGIN Tissue Pancreatic Duct TISSUE EXAM Tati Guillen MD 01/24/2017 0929 D : SMA MARGIN Tissue Abdomen, Please Specify TISSUE EXAM Tati Guillen MD 01/24/2017 0943 E : Tissue Whipple Resection (Stomach, Duodenum & Pancreas) TISSUE EXAM Tati Guillen MD 01/24/2017 0953 F : FINAL PANCREATIC MARGIN - STITCH BENNETT FINAL MARGIN Tissue Pancreas TISSUE EXAM Tati Guillen MD01/24/2017 1006 Implant(s): Implant Name Type Inv. Item Serial No. Time Clerk Lot No. LRB No. Used Action SEALANT 10ML FLOSEAL MATRIX HEMOSTATIC W/NDL-FREE ADAPTER - [id number] SEALANT 10ML FLOSEAL MATRIX HEMOSTATIC W/NDL-FREE ADAPTER u.sit [id number] N/A 2 Implanted CATH 90CM PERITONEAL OPEN END W/WALL SLITS - [id number] Catheter - Implant CATH 90CM PERITONEAL OPENEND W/WALL SLITS MEDTRO SHAGGY N/A 1 Implanted Drain(s): Closed/Suction Drain 2 RLQ 24 Fr. (Active) Open Drain 01/24/17 RUQ (Active) NG/OG Tube Nasogastric (Active) Gastrostomy/Enterostomy Gastrostomy-jejunostomy 22 Fr. LUQ (Active) Urethral Catheter Latex 16 Fr. (Active) Wound(s): Wound (Inpatient and Home Care Only) 12/15/16 1 Lower Leg;Foot;Ankle Lower;Right (Active) Incision 12/04/16 Chest Left (Active) Incision 01/24/17 Abdomen (Active) Bruce Green MD 01/24/2017 12:03 PM in this encounter Plan of Treatment Upcoming Encounters Date Type Specialty Care Team Description 02/15/2017 Office Visit Oncology Sherif Valles MD [address] [place] [address] [phone] Scheduled Referrals Name Priority Associated Diagnoses Order Schedule Ambulatory referral to Routine Malignant neoplasm of 1 Occurrences starting Home Health head of pancreas (HCC) 02/05/2017 until 02/05/2018 Health Maintenance Due Date Last Done Comments TETANUS EVERY 10 YR 1940 ZOSTER VACCINE 2001 PNEUMOCOCCAL VACCINE AGE 65+ (1 of 2 - 2006 PCV13) SEQUENTIAL INFLUENZA VACCINE (#1) 2016 Low-dose CT Lung Cancer Screen 01/03/2018 01/03/2017, 10/16/2016 COLONOSCOPY 07/27/2021 07/27/2016, 01/12/2010 as of this encounter Implants Implanted Type Area Time Clerk Device Expiration Model / Identifier Date Serial / Lot Port Implanted Mri Isp W/8fr Cath Powerport - [id number] Catheter - Right: BARD PERIP 12/26/2017 [id number] / Implanted: Qty: 1 on 12/04/2016 by Kota Vences MD Implant Subclavian / [id number] Cath 90cm Peritoneal Open End W/Wall Slits - [id number] Catheter - N/A: Abdomen MEDTRO SHAGGY [id number] / Implanted: Qty: 1 on 01/24/2017 by Tati Guillen MD Implant / Sealant 10ml Floseal Matrix Hemostatic W/Ndl-Free Adapter - [id number] N/A: Abdomen TOBAR BIO 03/20/2018 [id number] / Implanted: Qty: 2 on 01/24/2017 by Tati Guillen MD / [id number] as of this encounter Procedures Procedure Name Priority Date/Time Associated Diagnosis Comments WHIPPLE PROCEDURE 01/24/2017 7:10 AM Pancreatic adenocarcinoma EST (HCC) Special Needs REQ 0730 in this encounter Results POC Glucose (02/05/2017 5:57 AM) Component Value Ref Range Glucose 117 (H) 65 - 99 mg/dL Specimen Performing Laboratory Blood [facility] [address] [place] [address] 71203 Triglycerides (02/05/2017 4:30 AM) Component Value Ref Range Triglycerides 112 30 - 150 mg/dL Comment: National Cholesterol Education Program Guidelines:?Triglyceride Normal:?<150 mg/dL Borderline High:?150-199 mg/dL High:? 200-499 mg/dL Very High:?greater than or equal to 500 mg/dL Specimen Performing Laboratory Blood [facility] [address] [place] [address] 61250 Prealbumin (02/05/2017 4:30 AM) Component Value Ref Range Prealbumin 14.4 (L) 20.0 - 40.0 mg/dL Specimen Performing Laboratory Blood [facility] [address] [place] [address] 04470 Calcium, Ionized (02/05/2017 4:30 AM) Component Value Ref Range Ionized Calcium 4.9 4.5 - 5.3 mg/dL Specimen Performing Laboratory Blood [facility] [address] [place] [address] 27990 PT/INR (02/05/2017 4:30 AM) Component Value Ref Range Protime (PT) 12.8 11.8 - 14.3 seconds INR 1.0 0.8 - 1.1 Specimen Performing Laboratory Blood [facility] [address] [place] [address] 49192 Narrative During the induction phase of oral anticoagulation, the INR may not reflect the anticoagulation status of the patient. Therapeutic ranges for INR's are: Most clinical situations: INR 2.0-3.0 Mechanical Prosthetic Valve: INR 2.5-3.5 Critical: INR >5.0 Magnesium Level (02/05/2017 4:30 AM) Component Value Ref Range Magnesium 1.8 1.6 - 2.4 mg/dL Specimen Performing Laboratory Blood [facility] [address] [place] [address] 20779 Phosphorus (02/05/2017 4:30 AM) Component Value Ref Range Phosphorus 4.2 (H) 2.3 - 3.7 mg/dL Specimen Performing Laboratory Blood [facility] [address] [place] [address] 86240 Comprehensive Metabolic Panel (02/05/2017 4:30 AM) Component Value Ref Range Sodium 129 (L) 135 - 145 mmol/L Potassium 4.2 3.5 - 5.1 mmol/L Chloride 94 (L) 98 - 108 mmol/L Bicarbonate 24 21 - 32 mmol/L Anion Gap 15 10 - 20 mmol/L Glucose 115 (H) 65 - 99 mg/dL BUN 13 8 - 25 mg/dL Creatinine 0.56 (L) 0.80 - 1.30 mg/dL eGFR 101 >=60 mL/min/1.73 m2 BUN/Creatinine Ratio 23.2 (H) 10.0 - 20.0 Total Protein 5.9 (L) 6.0 - 8.0 g/dL Albumin 3.0 (L) 3.2 - 5.2 g/dL Calcium 8.7 8.4 - 10.2 mg/dL Alkaline Phosphatase 75 40 - 150 U/L AST 21 0 - 45 U/L ALT 29 0 - 40 U/L Total Bilirubin 0.4 0.0 - 1.3 mg/dL Specimen Performing Laboratory Blood [facility] [address] [place] [address] 04720 Narrative The eGFR should be used for monitoring renal function only and not for medication dosing. CBC (02/05/2017 4:30 AM) Component Value Ref Range WBC 7.11 4.50 - 11.00 K/mcL RBC 3.40 (L) 4.50 - 5.90 M/mcL Hemoglobin 10.6 (L) 13.5 - 17.5 g/dL Hematocrit 31.4 (L) 41.0 - 53.0 % MCV 92.4 80.0 - 100.0 fL MCH 31.2 26.0 - 34.0 pg MCHC 33.8 31.0 - 37.0 g/dL Platelets 329 150 - 400 K/mcL RDW - CV 13.5 11.6 - 14.8 % MPV 8.9 (L) 9.0 - 15.5 fL Nucleated RBC 0.0 % Nucleated RBC Abs 0.00 0.00 - 0.00 K/mcL Specimen Performing Laboratory Blood [facility] [address] [place] [address] 44750 POC Glucose (02/04/2017 8:12 PM) Component Value Ref Range Glucose 152 (H) 65 - 99 mg/dL Specimen Performing Laboratory Blood [facility] [address] [place] [address] 22749 POC Glucose (02/04/2017 4:25 PM) Component Value Ref Range Glucose 119 (H) 65 - 99 mg/dL Specimen Performing Laboratory Blood [facility] [address] [place] [address] 83704 POC Glucose (02/04/2017 12:31 PM) Component Value Ref Range Glucose 148 (H) 65 - 99 mg/dL Specimen Performing Laboratory Blood [facility] [address] [place] [address] 29592 POC Glucose (02/04/2017 8:24 AM) Component Value Ref Range Glucose 134 (H) 65 - 99 mg/dL Specimen Performing Laboratory Blood [facility] [address] [place] [address] 17080 PT/INR (02/04/2017 4:59 AM) Component Value Ref Range Protime (PT) 13.4 11.8 - 14.3 seconds INR 1.1 0.8 - 1.1 Specimen Performing Laboratory Blood [facility] [address] [place] [address] 53125 Narrative During the induction phase of oral anticoagulation, the INR may not reflect the anticoagulation status of the patient. Therapeutic ranges for INR's are: Most clinical situations: INR 2.0-3.0 Mechanical Prosthetic Valve: INR 2.5-3.5 Critical: INR >5.0 Calcium, Ionized (02/04/2017 4:59 AM) Component Value Ref Range Ionized Calcium 4.9 4.5 - 5.3 mg/dL Specimen Performing Laboratory Blood [facility] [address] [place] [address] 44857 Magnesium Level (02/04/2017 4:59 AM) Component Value Ref Range Magnesium 1.8 1.6 - 2.4 mg/dL Specimen Performing Laboratory Blood [facility] [address] [place] [address] 46913 Phosphorus (02/04/2017 4:59 AM) Component Value Ref Range Phosphorus 4.1 (H) 2.3 - 3.7 mg/dL Specimen Performing Laboratory Blood [facility] [address] [place] [address] 13221 Comprehensive Metabolic Panel (02/04/2017 4:59 AM) Component Value Ref Range Sodium 130 (L) 135 - 145 mmol/L Potassium 4.2 3.5 - 5.1 mmol/L Chloride 95 (L) 98 - 108 mmol/L Bicarbonate 24 21 - 32 mmol/L Anion Gap 15 10 - 20 mmol/L Glucose 125 (H) 65 - 99 mg/dL BUN 15 8 - 25 mg/dL Creatinine 0.50 (L) 0.80 - 1.30 mg/dL eGFR 106 >=60 mL/min/1.73 m2 BUN/Creatinine Ratio 30.0 (H) 10.0 - 20.0 Total Protein 5.1 (L) 6.0 - 8.0 g/dL Albumin 2.5 (L) 3.2 - 5.2 g/dL Calcium 8.2 (L) 8.4 - 10.2 mg/dL Alkaline Phosphatase 60 40 - 150 U/L AST 20 0 - 45 U/L ALT 30 0 - 40 U/L Total Bilirubin <0.2 0.0 - 1.3 mg/dL Specimen Performing Laboratory Blood [facility] [address] [place] [address] 30654 Narrative The eGFR should be used for monitoring renal function only and not for medication dosing. CBC (02/04/2017 4:59 AM) Component Value Ref Range WBC 7.17 4.50 - 11.00 K/mcL RBC 2.97 (L) 4.50 - 5.90 M/mcL Hemoglobin 9.6 (L) 13.5 - 17.5 g/dL Hematocrit 27.8 (L) 41.0 - 53.0 % MCV 93.6 80.0 - 100.0 fL MCH 32.3 26.0 - 34.0 pg MCHC 34.5 31.0 - 37.0 g/dL Platelets 267 150 - 400 K/mcL RDW - CV 13.6 11.6 - 14.8 % MPV 9.2 9.0 - 15.5 fL Nucleated RBC 0.0 % Nucleated RBC Abs 0.00 0.00 - 0.00 K/mcL Specimen Performing Laboratory Blood [facility] [address] [place] [address] 80452 POC Glucose (02/04/2017 3:59 AM) Component Value Ref Range Glucose 128 (H) 65 - 99 mg/dL Specimen Performing Laboratory Blood [facility] [address] [place] [address] 43031 POC Glucose (02/03/2017 11:54 PM) Component Value Ref Range Glucose 81 65 - 99 mg/dL Specimen Performing Laboratory Blood [facility] [address] [place] [address] 16008 POC Glucose (02/03/2017 8:31 PM) Component Value Ref Range Glucose 181 (H) 65 - 99 mg/dL Specimen Performing Laboratory Blood [facility] [address] [place] [address] 87530 POC Glucose (02/03/2017 4:24 PM) Component Value Ref Range Glucose 115 (H) 65 - 99 mg/dL Specimen Performing Laboratory Blood [facility] [address] [place] [address] 09315 POC Glucose (02/03/2017 12:42 PM) Component Value Ref Range Glucose 170 (H) 65 - 99 mg/dL Specimen Performing Laboratory Blood [facility] [address] [place] [address] 30995 POC Glucose (02/03/2017 8:47 AM) Component Value Ref Range Glucose 130 (H) 65 - 99 mg/dL Specimen Performing Laboratory Blood [facility] [address] [place] [address] 05026 POC Glucose (02/03/2017 3:52 AM) Component Value Ref Range Glucose 186 (H) 65 - 99 mg/dL Specimen Performing Laboratory Blood [facility] [address] [place] [address] 43966 PT/INR (02/03/2017 3:50 AM) Component Value Ref Range Protime (PT) 13.6 11.8 - 14.3 seconds INR 1.1 0.8 - 1.1 Specimen Performing Laboratory Blood [facility] [address] [place] [address] 50016 Narrative During the induction phase of oral anticoagulation, the INR may not reflect the anticoagulation status of the patient. Therapeutic ranges for INR's are: Most clinical situations: INR 2.0-3.0 Mechanical Prosthetic Valve: INR 2.5-3.5 Critical: INR >5.0 Calcium, Ionized (02/03/2017 3:50 AM) Component Value Ref Range Ionized Calcium 4.9 4.5 - 5.3 mg/dL Specimen Performing Laboratory Blood [facility] [address] [place] [address] 43575 Magnesium Level (02/03/2017 3:50 AM) Component Value Ref Range Magnesium 1.9 1.6 - 2.4 mg/dL Specimen Performing Laboratory Blood [facility] [address] [place] [address] 65321 Phosphorus (02/03/2017 3:50 AM) Component Value Ref Range Phosphorus 3.5 2.3 - 3.7 mg/dL Specimen Performing Laboratory Blood [facility] [address] [place] [address] 66102 Comprehensive Metabolic Panel (02/03/2017 3:50 AM) Component Value Ref Range Sodium 132 (L) 135 - 145 mmol/L Potassium 4.3 3.5 - 5.1 mmol/L Chloride 97 (L) 98 - 108 mmol/L Bicarbonate 23 21 - 32 mmol/L Anion Gap 16 10 - 20 mmol/L Glucose 177 (H) 65 - 99 mg/dL BUN 16 8 - 25 mg/dL Creatinine 0.53 (L) 0.80 - 1.30 mg/dL eGFR 103 >=60 mL/min/1.73 m2 BUN/Creatinine Ratio 30.2 (H) 10.0 - 20.0 Total Protein 5.1 (L) 6.0 - 8.0 g/dL Albumin 2.5 (L) 3.2 - 5.2 g/dL Calcium 8.1 (L) 8.4 - 10.2 mg/dL Alkaline Phosphatase 58 40 - 150 U/L AST 19 0 - 45 U/L ALT 31 0 - 40 U/L Total Bilirubin <0.2 0.0 - 1.3 mg/dL Specimen Performing Laboratory Blood [facility] [address] [place] [address] 54527 Narrative The eGFR should be used for monitoring renal function only and not for medication dosing. CBC (02/03/2017 3:50 AM) Component Value Ref Range WBC 7.01 4.50 - 11.00 K/mcL RBC 3.02 (L) 4.50 - 5.90 M/mcL Hemoglobin 9.7 (L) 13.5 - 17.5 g/dL Hematocrit 28.5 (L) 41.0 - 53.0 % MCV 94.4 80.0 - 100.0 fL MCH 32.1 26.0 - 34.0 pg MCHC 34.0 31.0 - 37.0 g/dL Platelets 252 150 - 400 K/mcL RDW - CV 13.2 11.6 - 14.8 % MPV 8.9 (L) 9.0 - 15.5 fL Nucleated RBC 0.0 % Nucleated RBC Abs 0.00 0.00 - 0.00 K/mcL Specimen Performing Laboratory Blood [facility] [address] [place] [address] 18176 POC Glucose (02/03/2017 12:20 AM) Component Value Ref Range Glucose 131 (H) 65 - 99 mg/dL Specimen Performing Laboratory Blood [facility] [address] [place] [address] 53057 POC Glucose (02/02/2017 8:31 PM) Component Value Ref Range Glucose 144 (H) 65 - 99 mg/dL Specimen Performing Laboratory Blood [facility] [address] [place] [address] 14902 POC Glucose (02/02/2017 4:25 PM) Component Value Ref Range Glucose 191 (H) 65 - 99 mg/dL Specimen Performing Laboratory Blood [facility] [address] [place] [address] 27348 POC Glucose (02/02/2017 11:08 AM) Component Value Ref Range Glucose 90 65 - 99 mg/dL Specimen Performing Laboratory Blood [facility] [address] [place] [address] 23061 POC Glucose (02/02/2017 8:00 AM) Component Value Ref Range Glucose 144 (H) 65 - 99 mg/dL Specimen Performing Laboratory Blood [facility] [address] [place] [address] 79678 POC Glucose (02/02/2017 4:04 AM) Component Value Ref Range Glucose 180 (H) 65 - 99 mg/dL Specimen Performing Laboratory Blood [facility] [address] [place] [address] 27925 POC Glucose (02/02/2017 3:14 AM) Component Value Ref Range Glucose 212 (H) 65 - 99 mg/dL Specimen Performing Laboratory Blood [facility] [address] [place] [address] 62373 PT/INR (02/02/2017 3:09 AM) Component Value Ref Range Protime (PT) 13.6 11.8 - 14.3 seconds INR 1.1 0.8 - 1.1 Specimen Performing Laboratory Blood [facility] [address] [place], [place] [id number] Narrative During the induction phase of oral anticoagulation, the INR may not reflect the anticoagulation status of the patient. Therapeutic ranges for INR's are: Most clinical situations: INR 2.0-3.0 Mechanical Prosthetic Valve: INR 2.5-3.5 Critical: INR >5.0 Calcium, Ionized (02/02/2017 3:09 AM) Component Value Ref Range Ionized Calcium 4.8 4.5 - 5.3 mg/dL Specimen Performing Laboratory Blood [facility] [address] [place] [address] 63006 Magnesium Level (02/02/2017 3:09 AM) Component Value Ref Range Magnesium 1.9 1.6 - 2.4 mg/dL Specimen Performing Laboratory Blood [facility] [address] [place] [address] 11231 Phosphorus (02/02/2017 3:09 AM) Component Value Ref Range Phosphorus 3.4 2.3 - 3.7 mg/dL Specimen Performing Laboratory Blood [facility] [address] [place] [address] 79787 Comprehensive Metabolic Panel (02/02/2017 3:09 AM) Component Value Ref Range Sodium 130 (L) 135 - 145 mmol/L Potassium 4.1 3.5 - 5.1 mmol/L Chloride 96 (L) 98 - 108 mmol/L Bicarbonate 24 21 - 32 mmol/L Anion Gap 14 10 - 20 mmol/L Glucose 175 (H) 65 - 99 mg/dL BUN 12 8 - 25 mg/dL Creatinine 0.45 (L) 0.80 - 1.30 mg/dL eGFR 111 >=60 mL/min/1.73 m2 BUN/Creatinine Ratio 26.7 (H) 10.0 - 20.0 Total Protein 5.3 (L) 6.0 - 8.0 g/dL Albumin 2.8 (L) 3.2 - 5.2 g/dL Calcium 8.0 (L) 8.4 - 10.2 mg/dL Alkaline Phosphatase 61 40 - 150 U/L AST 24 0 - 45 U/L ALT 38 0 - 40 U/L Total Bilirubin 0.2 0.0 - 1.3 mg/dL Specimen Performing Laboratory Blood [facility] [address] [place] [address] 09312 Narrative The eGFR should be used for monitoring renal function only and not for medication dosing. CBC (02/02/2017 3:09 AM) Component Value Ref Range WBC 7.84 4.50 - 11.00 K/mcL RBC 3.19 (L) 4.50 - 5.90 M/mcL Hemoglobin 10.4 (L) 13.5 - 17.5 g/dL Hematocrit 30.4 (L) 41.0 - 53.0 % MCV 95.3 80.0 - 100.0 fL MCH 32.6 26.0 - 34.0 pg MCHC 34.2 31.0 - 37.0 g/dL Platelets 274 150 - 400 K/mcL RDW - CV 13.5 11.6 - 14.8 % MPV 9.1 9.0 - 15.5 fL Nucleated RBC 0.0 % Nucleated RBC Abs 0.00 0.00 - 0.00 K/mcL Specimen Performing Laboratory Blood [facility] [address] [place] [address] 70051 POC Glucose (02/01/2017 11:56 PM) Component Value Ref Range Glucose 82 65 - 99 mg/dL Specimen Performing Laboratory Blood [facility] [address] [place] [address] 19942 POC Glucose (02/01/2017 7:40 PM) Component Value Ref Range Glucose 146 (H) 65 - 99 mg/dL Specimen Performing Laboratory Blood [facility] [address] [place] [address] 36575 POC Glucose (02/01/2017 4:14 PM) Component Value Ref Range Glucose 138 (H) 65 - 99 mg/dL Specimen Performing Laboratory Blood [facility] [address] [place] [address] 16741 POC Glucose (02/01/2017 12:02 PM) Component Value Ref Range Glucose 135 (H) 65 - 99 mg/dL Specimen Performing Laboratory Blood [facility] [address] [place] [address] 96856 POC Glucose (02/01/2017 7:45 AM) Component Value Ref Range Glucose 119 (H) 65 - 99 mg/dL Specimen Performing Laboratory Blood [facility] [address] [place] [address] 42711 Prealbumin (02/01/2017 5:52 AM) Component Value Ref Range Prealbumin 15.7 (L) 20.0 - 40.0 mg/dL Specimen Performing Laboratory Blood [facility] [address] [place] [address] 17886 Calcium, Ionized (02/01/2017 5:52 AM) Component Value Ref Range Ionized Calcium 4.9 4.5 - 5.3 mg/dL Specimen Performing Laboratory Blood [facility] [address] [place] [address] 61802 Magnesium Level (02/01/2017 5:52 AM) Component Value Ref Range Magnesium 2.0 1.6 - 2.4 mg/dL Specimen Performing Laboratory Blood [facility] [address] [place] [address] 02608 PT/INR (02/01/2017 5:52 AM) Component Value Ref Range Protime (PT) 14.3 11.8 - 14.3 seconds INR 1.1 0.8 - 1.1 Specimen Performing Laboratory Blood [facility] [address] [place] [address] 12660 Narrative During the induction phase of oral anticoagulation, the INR may not reflect the anticoagulation status of the patient. Therapeutic ranges for INR's are: Most clinical situations: INR 2.0-3.0 Mechanical Prosthetic Valve: INR 2.5-3.5 Critical: INR >5.0 Magnesium Level (02/01/2017 5:52 AM) Component Value Ref Range Magnesium 2.1 1.6 - 2.4 mg/dL Specimen Performing Laboratory Blood [facility] [address] [place] [address] 41905 Phosphorus (02/01/2017 5:52 AM) Component Value Ref Range Phosphorus 3.6 2.3 - 3.7 mg/dL Specimen Performing Laboratory Blood [facility] [address] [place] [address] Comprehensive Metabolic Panel (02/01/2017 5:52 AM) Component Value Ref Range Sodium 134 (L) 135 - 145 mmol/L Potassium 3.8 3.5 - 5.1 mmol/L Chloride 98 98 - 108 mmol/L Bicarbonate 26 21 - 32 mmol/L Anion Gap 14 10 - 20 mmol/L Glucose 117 (H) 65 - 99 mg/dL BUN 13 8 - 25 mg/dL Creatinine 0.52 (L) 0.80 - 1.30 mg/dL eGFR 104 >=60 mL/min/1.73 m2 BUN/Creatinine Ratio 25.0 (H) 10.0 - 20.0 Total Protein 5.5 (L) 6.0 - 8.0 g/dL Albumin 3.0 (L) 3.2 - 5.2 g/dL Calcium 8.3 (L) 8.4 - 10.2 mg/dL Alkaline Phosphatase 61 40 - 150 U/L AST 24 0 - 45 U/L ALT 45 (H) 0 - 40 U/L Total Bilirubin 0.2 0.0 - 1.3 mg/dL Specimen Performing Laboratory Blood [facility] [address] [place] [address] Narrative The eGFR should be used for monitoring renal function only and not for medication dosing. CBC (02/01/2017 5:51 AM) Component Value Ref Range WBC 7.06 4.50 - 11.00 K/mcL RBC 3.26 (L) 4.50 - 5.90 M/mcL Hemoglobin 10.5 (L) 13.5 - 17.5 g/dL Hematocrit 31.0 (L) 41.0 - 53.0 % MCV 95.1 80.0 - 100.0 fL MCH 32.2 26.0 - 34.0 pg MCHC 33.9 31.0 - 37.0 g/dL Platelets 275 150 - 400 K/mcL RDW - CV 13.5 11.6 - 14.8 % MPV 9.5 9.0 - 15.5 fL Nucleated RBC 0.0 % Nucleated RBC Abs 0.00 0.00 - 0.00 K/mcL Specimen Performing Laboratory Blood [facility] [address] [place] [address] 88690 POC Glucose (02/01/2017 3:42 AM) Component Value Ref Range Glucose 159 (H) 65 - 99 mg/dL Specimen Performing Laboratory Blood [facility] [address] [place] [address] 47145 POC Glucose (01/31/2017 11:33 PM) Component Value Ref Range Glucose 134 (H) 65 - 99 mg/dL Specimen Performing Laboratory Blood [facility] [address] [place] [address] 88878 POC Glucose (01/31/2017 8:46 PM) Component Value Ref Range Glucose 76 65 - 99 mg/dL Specimen Performing Laboratory Blood [facility] [address] [place] [address] 42557 POC Glucose (01/31/2017 3:33 PM) Component Value Ref Range Glucose 159 (H) 65 - 99 mg/dL Specimen Performing Laboratory Blood [facility] [address] [place] [address] 47646 POC Glucose (01/31/2017 10:55 AM) Component Value Ref Range Glucose 121 (H) 65 - 99 mg/dL Specimen Performing Laboratory Blood [facility] [address] [place] [address] 03098 POC Glucose (01/31/2017 8:17 AM) Component Value Ref Range Glucose 147 (H) 65 - 99 mg/dL Specimen Performing Laboratory Blood [facility] [address] [place] [address] 89451 Triglycerides, Body Fluid (01/31/2017 8:06 AM) Component Value Ref Range Triglycerides, Fluid 736 mg/dL Specimen Performing Laboratory Body Fluid - Abdomen, Please Specify [facility] [address] [place] [address] 12869 Narrative No established reference range. Amylase Pancreatic, Body Fluid (01/31/2017 8:06 AM) Component Value Ref Range Amylase Pancreatic, BF <3 U/L Specimen Performing Laboratory Body Fluid - Abdomen, Please Specify [facility] [address] [place] [address] 41911 Narrative No established reference range. POC Glucose (01/31/2017 3:44 AM) Component Value Ref Range Glucose 131 (H) 65 - 99 mg/dL Specimen Performing Laboratory Blood [facility] [address] [place] [address] 13711 Triglycerides (01/31/2017 3:39 AM) Component Value Ref Range Triglycerides 170 (H) 30 - 150 mg/dL Comment: National Cholesterol Education Program Guidelines:?Triglyceride Normal:?<150 mg/dL Borderline High:?150-199 mg/dL High:? 200-499 mg/dL Very High:?greater than or equal to 500 mg/dL Specimen Performing Laboratory Blood [facility] [address] [place] [address] 41673 PT/INR (01/31/2017 3:39 AM) Component Value Ref Range Protime (PT) 13.7 11.8 - 14.3 seconds INR 1.1 0.8 - 1.1 Specimen Performing Laboratory Blood [facility] [address] [place] [address] 10468 Narrative During the induction phase of oral anticoagulation, the INR may not reflect the anticoagulation status of the patient. Therapeutic ranges for INR's are: Most clinical situations: INR 2.0-3.0 Mechanical Prosthetic Valve: INR 2.5-3.5 Critical: INR >5.0 Calcium, Ionized (01/31/2017 3:39 AM) Component Value Ref Range Ionized Calcium 4.8 4.5 - 5.3 mg/dL Specimen Performing Laboratory Blood [facility] [address] [place] [address] 04509 Magnesium Level (01/31/2017 3:39 AM) Component Value Ref Range Magnesium 2.0 1.6 - 2.4 mg/dL Specimen Performing Laboratory Blood [facility] [address] [place] [address] 98151 Phosphorus (01/31/2017 3:39 AM) Component Value Ref Range Phosphorus 4.0 (H) 2.3 - 3.7 mg/dL Specimen Performing Laboratory Blood [facility] [address] [place] [address] 55476 Comprehensive Metabolic Panel (01/31/2017 3:39 AM) Component Value Ref Range Sodium 135 135 - 145 mmol/L Potassium 4.1 3.5 - 5.1 mmol/L Chloride 96 (L) 98 - 108 mmol/L Bicarbonate 27 21 - 32 mmol/L Anion Gap 16 10 - 20 mmol/L Glucose 139 (H) 65 - 99 mg/dL BUN 20 8 - 25 mg/dL Creatinine 0.57 (L) 0.80 - 1.30 mg/dL eGFR 100 >=60 mL/min/1.73 m2 BUN/Creatinine Ratio 35.1 (H) 10.0 - 20.0 Total Protein 6.1 6.0 - 8.0 g/dL Albumin 2.8 (L) 3.2 - 5.2 g/dL Calcium 8.6 8.4 - 10.2 mg/dL Alkaline Phosphatase 67 40 - 150 U/L AST 24 0 - 45 U/L ALT 59 (H) 0 - 40 U/L Total Bilirubin 0.3 0.0 - 1.3 mg/dL Specimen Performing Laboratory Blood [facility] [address] [place], [place] [id number] Narrative The eGFR should be used for monitoring renal function only and not for medication dosing. CBC (01/31/2017 3:39 AM) Component Value Ref Range WBC 9.53 4.50 - 11.00 K/mcL RBC 3.55 (L) 4.50 - 5.90 M/mcL Hemoglobin 11.6 (L) 13.5 - 17.5 g/dL Hematocrit 33.8 (L) 41.0 - 53.0 % MCV 95.2 80.0 - 100.0 fL MCH 32.7 26.0 - 34.0 pg MCHC 34.3 31.0 - 37.0 g/dL Platelets 285 150 - 400 K/mcL RDW - CV 13.3 11.6 - 14.8 % MPV 9.2 9.0 - 15.5 fL Nucleated RBC 0.0 % Nucleated RBC Abs 0.00 0.00 - 0.00 K/mcL Specimen Performing Laboratory Blood [facility] [address] [place] [address] 04168 POC Glucose (01/31/2017 12:05 AM) Component Value Ref Range Glucose 137 (H) 65 - 99 mg/dL Specimen Performing Laboratory Blood [facility] [address] [place] [address] 41569 POC Glucose (01/30/2017 8:03 PM) Component Value Ref Range Glucose 147 (H) 65 - 99 mg/dL Specimen Performing Laboratory Blood [facility] [address] [place] [address] 72045 POC Glucose (01/30/2017 6:24 PM) Component Value Ref Range Glucose 131 (H) 65 - 99 mg/dL Specimen Performing Laboratory Blood [facility] [address] [place] [address] 69278 POC Glucose (01/30/2017 12:13 PM) Component Value Ref Range Glucose 99 65 - 99 mg/dL Specimen Performing Laboratory Blood [facility] [address] [place] [address] 46111 POC Glucose (01/30/2017 7:22 AM) Component Value Ref Range Glucose 151 (H) 65 - 99 mg/dL Specimen Performing Laboratory Blood [facility] [address] [place] [address] 75464 POC Glucose (01/30/2017 3:37 AM) Component Value Ref Range Glucose 134 (H) 65 - 99 mg/dL Specimen Performing Laboratory Blood [facility] [address] [place] [address] 84829 PT/INR (01/30/2017 3:29 AM) Component Value Ref Range Protime (PT) 13.9 11.8 - 14.3 seconds INR 1.1 0.8 - 1.1 Specimen Performing Laboratory Blood [facility] [address] [place] [address] 45466 Narrative During the induction phase of oral anticoagulation, the INR may not reflect the anticoagulation status of the patient. Therapeutic ranges for INR's are: Most clinical situations: INR 2.0-3.0 Mechanical Prosthetic Valve: INR 2.5-3.5 Critical: INR >5.0 Calcium, Ionized (01/30/2017 3:29 AM) Component Value Ref Range Ionized Calcium 4.8 4.5 - 5.3 mg/dL Specimen Performing Laboratory Blood [facility] [address] [place] [address] 54181 Magnesium Level (01/30/2017 3:29 AM) Component Value Ref Range Magnesium 2.0 1.6 - 2.4 mg/dL Specimen Performing Laboratory Blood [facility] [address] [place] [address] 31049 Phosphorus (01/30/2017 3:29 AM) Component Value Ref Range Phosphorus 3.7 2.3 - 3.7 mg/dL Specimen Performing Laboratory Blood [facility] [address] [place] [address] Comprehensive Metabolic Panel (01/30/2017 3:29 AM) Component Value Ref Range Sodium 135 135 - 145 mmol/L Potassium 4.2 3.5 - 5.1 mmol/L Chloride 98 98 - 108 mmol/L Bicarbonate 28 21 - 32 mmol/L Anion Gap 13 10 - 20 mmol/L Glucose 139 (H) 65 - 99 mg/dL BUN 17 8 - 25 mg/dL Creatinine 0.58 (L) 0.80 - 1.30 mg/dL eGFR 100 >=60 mL/min/1.73 m2 BUN/Creatinine Ratio 29.3 (H) 10.0 - 20.0 Total Protein 5.2 (L) 6.0 - 8.0 g/dL Albumin 2.8 (L) 3.2 - 5.2 g/dL Calcium 8.3 (L) 8.4 - 10.2 mg/dL Alkaline Phosphatase 57 40 - 150 U/L AST 28 0 - 45 U/L ALT 68 (H) 0 - 40 U/L Total Bilirubin 0.3 0.0 - 1.3 mg/dL Specimen Performing Laboratory Blood [facility] [address] [place] [address] Narrative The eGFR should be used for monitoring renal function only and not for medication dosing. CBC (01/30/2017 3:29 AM) Component Value Ref Range WBC 7.13 4.50 - 11.00 K/mcL RBC 3.22 (L) 4.50 - 5.90 M/mcL Hemoglobin 10.3 (L) 13.5 - 17.5 g/dL Hematocrit 30.9 (L) 41.0 - 53.0 % MCV 96.0 80.0 - 100.0 fL MCH 32.0 26.0 - 34.0 pg MCHC 33.3 31.0 - 37.0 g/dL Platelets 227 150 - 400 K/mcL RDW - CV 13.5 11.6 - 14.8 % MPV 9.2 9.0 - 15.5 fL Nucleated RBC 0.0 % Nucleated RBC Abs 0.00 0.00 - 0.00 K/mcL Specimen Performing Laboratory Blood [facility] [address] [place] [address] 16114 POC Glucose (01/29/2017 11:50 PM) Component Value Ref Range Glucose 153 (H) 65 - 99 mg/dL Specimen Performing Laboratory Blood [facility] [address] [place] [address] 62702 POC Glucose (01/29/2017 7:35 PM) Component Value Ref Range Glucose 140 (H) 65 - 99 mg/dL Specimen Performing Laboratory Blood [facility] [address] [place] [address] 81818 POC Glucose (01/29/2017 3:50 PM) Component Value Ref Range Glucose 124 (H) 65 - 99 mg/dL Specimen Performing Laboratory Blood [facility] [address] [place] [address] 27038 POC Glucose (01/29/2017 11:58 AM) Component Value Ref Range Glucose 158 (H) 65 - 99 mg/dL Specimen Performing Laboratory Blood [facility] [address] [place] [address] Amylase Pancreatic, Body Fluid (01/29/2017 9:00 AM) Component Value Ref Range Amylase Pancreatic, BF <3 U/L Specimen Performing Laboratory Body Fluid - [facility] [address] [place] [address] Narrative No established reference range. POC Glucose (01/29/2017 7:57 AM) Component Value Ref Range Glucose 102 (H) 65 - 99 mg/dL Specimen Performing Laboratory Blood [facility] [address] [place] [address] 75840 POC Glucose (01/29/2017 4:31 AM) Component Value Ref Range Glucose 152 (H) 65 - 99 mg/dL Specimen Performing Laboratory Blood [facility] [address] [place] [address] 86044 PT/INR (01/29/2017 4:18 AM) Component Value Ref Range Protime (PT) 13.8 11.8 - 14.3 seconds INR 1.1 0.8 - 1.1 Specimen Performing Laboratory Blood [facility] [address] [place] [address] 21735 Narrative During the induction phase of oral anticoagulation, the INR may not reflect the anticoagulation status of the patient. Therapeutic ranges for INR's are: Most clinical situations: INR 2.0-3.0 Mechanical Prosthetic Valve: INR 2.5-3.5 Critical: INR >5.0 Calcium, Ionized (01/29/2017 4:18 AM) Component Value Ref Range Ionized Calcium 4.8 4.5 - 5.3 mg/dL Specimen Performing Laboratory Blood [facility] [address] [place] [address] 48892 Magnesium Level (01/29/2017 4:18 AM) Component Value Ref Range Magnesium 2.1 1.6 - 2.4 mg/dL Specimen Performing Laboratory Blood [facility] [address] [place] [address] 13850 Phosphorus (01/29/2017 4:18 AM) Component Value Ref Range Phosphorus 4.1 (H) 2.3 - 3.7 mg/dL Specimen Performing Laboratory Blood [facility] [address] [place] [address] 94021 Comprehensive Metabolic Panel (01/29/2017 4:18 AM) Component Value Ref Range Sodium 134 (L) 135 - 145 mmol/L Potassium 4.6 3.5 - 5.1 mmol/L Chloride 96 (L) 98 - 108 mmol/L Bicarbonate 29 21 - 32 mmol/L Anion Gap 14 10 - 20 mmol/L Glucose 152 (H) 65 - 99 mg/dL BUN 14 8 - 25 mg/dL Creatinine 0.57 (L) 0.80 - 1.30 mg/dL eGFR 100 >=60 mL/min/1.73 m2 BUN/Creatinine Ratio 24.6 (H) 10.0 - 20.0 Total Protein 5.4 (L) 6.0 - 8.0 g/dL Albumin 2.7 (L) 3.2 - 5.2 g/dL Calcium 8.5 8.4 - 10.2 mg/dL Alkaline Phosphatase 61 40 - 150 U/L AST 39Comment: Slightly Hemolyzed 0 - 45 U/L ALT 92 (H) 0 - 40 U/L Total Bilirubin 0.4 0.0 - 1.3 mg/dL Specimen Performing Laboratory Blood [facility] [address] [place] [address] 05634 Narrative The eGFR should be used for monitoring renal function only and not for medication dosing. CBC (01/29/2017 4:18 AM) Component Value Ref Range WBC 7.59 4.50 - 11.00 K/mcL RBC 3.34 (L) 4.50 - 5.90 M/mcL Hemoglobin 10.7 (L) 13.5 - 17.5 g/dL Hematocrit 31.7 (L) 41.0 - 53.0 % MCV 94.9 80.0 - 100.0 fL MCH 32.0 26.0 - 34.0 pg MCHC 33.8 31.0 - 37.0 g/dL Platelets 217 150 - 400 K/mcL RDW - CV 13.5 11.6 - 14.8 % MPV 9.1 9.0 - 15.5 fL Nucleated RBC 0.0 % Nucleated RBC Abs 0.00 0.00 - 0.00 K/mcL Specimen Performing Laboratory Blood [facility] [address] [place] [address] 19901 POC Glucose (01/29/2017 12:06 AM) Component Value Ref Range Glucose 131 (H) 65 - 99 mg/dL Specimen Performing Laboratory Blood [facility] [address] [place] [address] 60666 POC Glucose (01/28/2017 7:53 PM) Component Value Ref Range Glucose 143 (H) 65 - 99 mg/dL Specimen Performing Laboratory Blood [facility] [address] [place] [address] 59170 POC Glucose (01/28/2017 4:22 PM) Component Value Ref Range Glucose 131 (H) 65 - 99 mg/dL Specimen Performing Laboratory Blood [facility] [address] [place] [address] 69050 POC Glucose (01/28/2017 11:48 AM) Component Value Ref Range Glucose 153 (H) 65 - 99 mg/dL Specimen Performing Laboratory Blood [facility] [address] [place] [address] 48879 POC Glucose (01/28/2017 8:13 AM) Component Value Ref Range Glucose 132 (H) 65 - 99 mg/dL Specimen Performing Laboratory Blood [facility] [address] [place] [address] 67133 POC Glucose (01/28/2017 4:30 AM) Component Value Ref Range Glucose 133 (H) 65 - 99 mg/dL Specimen Performing Laboratory Blood [facility] [address] [place] [address] 25946 PT/INR (01/28/2017 4:23 AM) Component Value Ref Range Protime (PT) 14.5 (H) 11.8 - 14.3 seconds INR 1.2 (H) 0.8 - 1.1 Specimen Performing Laboratory Blood [facility] [address] [place] [address] 20921 Narrative During the induction phase of oral anticoagulation, the INR may not reflect the anticoagulation status of the patient. Therapeutic ranges for INR's are: Most clinical situations: INR 2.0-3.0 Mechanical Prosthetic Valve: INR 2.5-3.5 Critical: INR >5.0 Calcium, Ionized (01/28/2017 4:23 AM) Component Value Ref Range Ionized Calcium 4.7 4.5 - 5.3 mg/dL Specimen Performing Laboratory Blood [facility] [address] [place] [address] 15389 Magnesium Level (01/28/2017 4:23 AM) Component Value Ref Range Magnesium 2.0 1.6 - 2.4 mg/dL Specimen Performing Laboratory Blood [facility] [address] [place] [address] 01021 Phosphorus (01/28/2017 4:23 AM) Component Value Ref Range Phosphorus 4.4 (H) 2.3 - 3.7 mg/dL Specimen Performing Laboratory Blood [facility] [address] [place] [address] 68402 Comprehensive Metabolic Panel (01/28/2017 4:23 AM) Component Value Ref Range Sodium 131 (L) 135 - 145 mmol/L Potassium 4.2 3.5 - 5.1 mmol/L Chloride 93 (L) 98 - 108 mmol/L Bicarbonate 31 21 - 32 mmol/L Anion Gap 11 10 - 20 mmol/L Glucose 136 (H) 65 - 99 mg/dL BUN 10 8 - 25 mg/dL Creatinine 0.53 (L) 0.80 - 1.30 mg/dL eGFR 103 >=60 mL/min/1.73 m2 BUN/Creatinine Ratio 18.9 10.0 - 20.0 Total Protein 4.9 (L) 6.0 - 8.0 g/dL Albumin 2.5 (L) 3.2 - 5.2 g/dL Calcium 8.0 (L) 8.4 - 10.2 mg/dL Alkaline Phosphatase 49 40 - 150 U/L AST 40 0 - 45 U/L ALT 107 (H) 0 - 40 U/L Total Bilirubin 0.5 0.0 - 1.3 mg/dL Specimen Performing Laboratory Blood [facility] [address] [place] [address] 91170 Narrative The eGFR should be used for monitoring renal function only and not for medication dosing. CBC (01/28/2017 4:23 AM) Component Value Ref Range WBC 6.22 4.50 - 11.00 K/mcL RBC 2.99 (L) 4.50 - 5.90 M/mcL Hemoglobin 9.5 (L) 13.5 - 17.5 g/dL Hematocrit 29.1 (L) 41.0 - 53.0 % MCV 97.3 80.0 - 100.0 fL MCH 31.8 26.0 - 34.0 pg MCHC 32.6 31.0 - 37.0 g/dL Platelets 181 150 - 400 K/mcL RDW - CV 13.4 11.6 - 14.8 % MPV 9.2 9.0 - 15.5 fL Nucleated RBC 0.0 % Nucleated RBC Abs 0.00 0.00 - 0.00 K/mcL Specimen Performing Laboratory Blood [facility] [address] [place] [address] 17569 POC Glucose (01/27/2017 8:09 PM) Component Value Ref Range Glucose 99 65 - 99 mg/dL Specimen Performing Laboratory Blood [facility] [address] [place] [address] 21497 POC Glucose (01/27/2017 5:29 PM) Component Value Ref Range Glucose 142 (H) 65 - 99 mg/dL Specimen Performing Laboratory Blood [facility] [address] [place] [address] 61404 POC Glucose (01/27/2017 12:23 PM) Component Value Ref Range Glucose 151 (H) 65 - 99 mg/dL Specimen Performing Laboratory Blood [facility] [address] [place] [address] 07660 POC Glucose (01/27/2017 8:14 AM) Component Value Ref Range Glucose 112 (H) 65 - 99 mg/dL Specimen Performing Laboratory Blood [facility] [address] [place] [address] 91444 Amylase Pancreatic, Body Fluid (01/27/2017 6:00 AM) Component Value Ref Range Amylase Pancreatic, BF <3 U/L Specimen Performing Laboratory Body Fluid - [facility] [address] [place], [place] [id number] Narrative No established reference range. POC Glucose (01/27/2017 4:09 AM) Component Value Ref Range Glucose 127 (H) 65 - 99 mg/dL Specimen Performing Laboratory Blood [facility] [address] [place] [address] 64903 PT/INR (01/27/2017 3:53 AM) Component Value Ref Range Protime (PT) 14.7 (H) 11.8 - 14.3 seconds INR 1.2 (H) 0.8 - 1.1 Specimen Performing Laboratory Blood [facility] [address] [place] [address] Narrative During the induction phase of oral anticoagulation, the INR may not reflect the anticoagulation status of the patient. Therapeutic ranges for INR's are: Most clinical situations: INR 2.0-3.0 Mechanical Prosthetic Valve: INR 2.5-3.5 Critical: INR >5.0 Calcium, Ionized (01/27/2017 3:53 AM) Component Value Ref Range Ionized Calcium 4.7 4.5 - 5.3 mg/dL Specimen Performing Laboratory Blood [facility] [address] [place] [address] 42649 Magnesium Level (01/27/2017 3:53 AM) Component Value Ref Range Magnesium 1.8 1.6 - 2.4 mg/dL Specimen Performing Laboratory Blood [facility] [address] [place] [address] 37496 Phosphorus (01/27/2017 3:53 AM) Component Value Ref Range Phosphorus 4.0 (H) 2.3 - 3.7 mg/dL Specimen Performing Laboratory Blood [facility] [address] [place] [address] 46953 Comprehensive Metabolic Panel (01/27/2017 3:53 AM) Component Value Ref Range Sodium 133 (L) 135 - 145 mmol/L Potassium 3.8 3.5 - 5.1 mmol/L Chloride 93 (L) 98 - 108 mmol/L Bicarbonate 31 21 - 32 mmol/L Anion Gap 13 10 - 20 mmol/L Glucose 142 (H) 65 - 99 mg/dL BUN 14 8 - 25 mg/dL Creatinine 0.62 (L) 0.80 - 1.30 mg/dL eGFR 97 >=60 mL/min/1.73 m2 BUN/Creatinine Ratio 22.6 (H) 10.0 - 20.0 Total Protein 5.3 (L) 6.0 - 8.0 g/dL Albumin 2.6 (L) 3.2 - 5.2 g/dL Calcium 8.2 (L) 8.4 - 10.2 mg/dL Alkaline Phosphatase 51 40 - 150 U/L AST 91 (H) 0 - 45 U/L ALT 184 (H) 0 - 40 U/L Total Bilirubin 0.7 0.0 - 1.3 mg/dL Specimen Performing Laboratory Blood [facility] [facility] [address] [place] [address] 73122 Narrative The eGFR should be used for monitoring renal function only and not for medication dosing. CBC (01/27/2017 3:53 AM) Component Value Ref Range WBC 8.88 4.50 - 11.00 K/mcL RBC 3.04 (L) 4.50 - 5.90 M/mcL Hemoglobin 9.6 (L) 13.5 - 17.5 g/dL Hematocrit 29.3 (L) 41.0 - 53.0 % MCV 96.4 80.0 - 100.0 fL MCH 31.6 26.0 - 34.0 pg MCHC 32.8 31.0 - 37.0 g/dL Platelets 190 150 - 400 K/mcL RDW - CV 14.2 11.6 - 14.8 % MPV 9.4 9.0 - 15.5 fL Nucleated RBC 0.0 % Nucleated RBC Abs 0.00 0.00 - 0.00 K/mcL Specimen Performing Laboratory [facility] [address] [place] [address] 71084 POC Glucose (01/27/2017 12:29 AM) Component Value Ref Range Glucose 85 65 - 99 mg/dL Specimen Performing Laboratory Blood [facility] [address] [place] [address] 29882 POC Glucose (01/26/2017 8:45 PM) Component Value Ref Range Glucose 145 (H) 65 - 99 mg/dL Specimen Performing Laboratory Blood [facility] [address] [place] [address] 90021 POC Glucose (01/26/2017 4:35 PM) Component Value Ref Range Glucose 153 (H) 65 - 99 mg/dL Specimen Performing Laboratory Blood [facility] [address] [place] [address] 06818 POC Glucose (01/26/2017 1:00 PM) Component Value Ref Range Glucose 126 (H) 65 - 99 mg/dL Specimen Performing Laboratory Blood [facility] [address] [place] [address] 92178 POC Glucose (01/26/2017 7:30 AM) Component Value Ref Range Glucose 124 (H) 65 - 99 mg/dL Specimen Performing Laboratory Blood [facility] [address] [place] [address] 68138 POC Glucose (01/26/2017 6:37 AM) Component Value Ref Range Glucose 107 (H) 65 - 99 mg/dL Specimen Performing Laboratory Blood [facility] [address] [place] [address] 41185 PT/INR (01/26/2017 2:10 AM) Component Value Ref Range Protime (PT) 15.6 (H) 11.8 - 14.3 seconds INR 1.3 (H) 0.8 - 1.1 Specimen Performing Laboratory [facility] [address] [place] [address] 49922 Narrative During the induction phase of oral anticoagulation, the INR may not reflect the anticoagulation status of the patient. Therapeutic ranges for INR's are: Most clinical situations: INR 2.0-3.0 Mechanical Prosthetic Valve: INR 2.5-3.5 Critical: INR >5.0 Calcium, Ionized (01/26/2017 2:10 AM) Component Value Ref Range Ionized Calcium 4.9 4.5 - 5.3 mg/dL Specimen Performing Laboratory [facility] [address] [place] [address] 17253 Magnesium Level (01/26/2017 2:10 AM) Component Value Ref Range Magnesium 1.7 1.6 - 2.4 mg/dL Specimen Performing Laboratory [facility] [address] [place] [address] 61531 Phosphorus (01/26/2017 2:10 AM) Component Value Ref Range Phosphorus 3.0 2.3 - 3.7 mg/dL Specimen Performing Laboratory [facility] [address] [place] [address] 25244 Comprehensive Metabolic Panel (01/26/2017 2:10 AM) Component Value Ref Range Sodium 137 135 - 145 mmol/L Potassium 3.8 3.5 - 5.1 mmol/L Chloride 101 98 - 108 mmol/L Bicarbonate 31 21 - 32 mmol/L Anion Gap 9 (L) 10 - 20 mmol/L Glucose 135 (H) 65 - 99 mg/dL BUN 14 8 - 25 mg/dL Creatinine 0.53 (L) 0.80 - 1.30 mg/dL eGFR 103 >=60 mL/min/1.73 m2 BUN/Creatinine Ratio 26.4 (H) 10.0 - 20.0 Total Protein 5.1 (L) 6.0 - 8.0 g/dL Albumin 2.7 (L) 3.2 - 5.2 g/dL Calcium 8.4 8.4 - 10.2 mg/dL Alkaline Phosphatase 44 40 - 150 U/L AST 235 (H) 0 - 45 U/L ALT 254 (H) 0 - 40 U/L Total Bilirubin 0.3 0.0 - 1.3 mg/dL Specimen Performing Laboratory [facility] [address] [place] [address] 19944 Narrative The eGFR should be used for monitoring renal function only and not for medication dosing. CBC (01/26/2017 2:10 AM) Component Value Ref Range WBC 10.38 4.50 - 11.00 K/mcL RBC 3.08 (L) 4.50 - 5.90 M/mcL Hemoglobin 9.8 (L) 13.5 - 17.5 g/dL Hematocrit 29.5 (L) 41.0 - 53.0 % MCV 95.8 80.0 - 100.0 fL MCH 31.8 26.0 - 34.0 pg MCHC 33.2 31.0 - 37.0 g/dL Platelets 188 150 - 400 K/mcL RDW - CV 14.5 11.6 - 14.8 % MPV 9.4 9.0 - 15.5 fL Nucleated RBC 0.0 % Nucleated RBC Abs 0.00 0.00 - 0.00 K/mcL Specimen Performing Laboratory [facility] [address] [place] [address] 41496 POC Glucose (01/25/2017 9:38 PM) Component Value Ref Range Glucose 118 (H) 65 - 99 mg/dL Specimen Performing Laboratory Blood [facility] [address] [place] [address] 06166 POC Glucose (01/25/2017 4:19 PM) Component Value Ref Range Glucose 109 (H) 65 - 99 mg/dL Specimen Performing Laboratory Blood [facility] [address] [place] [address] 16663 POC Glucose (01/25/2017 3:28 PM) Component Value Ref Range Glucose 98 65 - 99 mg/dL Specimen Performing Laboratory Blood [facility] [address] [place] [address] 71321 Chem 7 (01/25/2017 12:07 PM) Component Value Ref Range Sodium 136 135 - 145 mmol/L Potassium 4.5 3.5 - 5.1 mmol/L Chloride 98 98 - 108 mmol/L Bicarbonate 30 21 - 32 mmol/L Creatinine 0.56 (L) 0.80 - 1.30 mg/dL Glucose 159 (H) 65 - 99 mg/dL BUN 13 8 - 25 mg/dL eGFR 101 >=60 mL/min/1.73 m2 BUN/Creatinine Ratio 23.2 (H) 10.0 - 20.0 Anion Gap 13 10 - 20 mmol/L Specimen Performing Laboratory [facility] [address] [place] [address] 90863 Narrative The eGFR should be used for monitoring renal function only and not for medication dosing. POC Glucose (01/25/2017 11:51 AM) Component Value Ref Range Glucose 150 (H) 65 - 99 mg/dL Specimen Performing Laboratory Blood [facility] [address] [place] [address] 18640 POC Glucose (01/25/2017 8:37 AM) Component Value Ref Range Glucose 167 (H) 65 - 99 mg/dL Specimen Performing Laboratory Blood [facility] [address] [place] [address] 92122 POC Glucose (01/25/2017 6:31 AM) Component Value Ref Range Glucose 140 (H) 65 - 99 mg/dL Specimen Performing Laboratory Blood [facility] [address] [place] [address] 86677 XR Abdomen AP (01/25/2017 5:01 AM) Specimen Performing Laboratory [facility] Impressions 1.?Two surgical drains are seen in the right upper quadrant. 2.?Gastrostomy tube and jejunostomy tube in position.?Also esophagogastric tube in position.?No dilated bowel identified. PRL/ges Workstation ID:? [id number] Narrative EXAMINATION: XR ABDOMEN /KUB/FLAT PLATE/1 VIEW HISTORY: ORDERING SYSTEM PROVIDED HISTORY:?Eval pancreatic stent placement and GJ tube, TECHNOLOGIST PROVIDED HISTORY: Reason for exam: Eval pancreatic stent placement and GJ tube Illness/Other Cancer History: panreas Surgery, RadiationHistory: port Encounter Type: Ongoing Additional signs and symptoms: ORDERING SYSTEM PROVIDED DIAGNOSIS CODES: C25.0 Cancer of head of pancreas (HCC) COMPARISON: [facility] CT from 01/03/2017. FINDINGS: There is a transverse laparotomy staple line.?A surgical drain is seen in the right upper quadrant extending towards the midline.?This is probably a subhepatic surgical drain.?There is also a smaller caliber tubing extending into the subhepatic space and then looping down along the right lateral margin of the liver into a more midline position.?Its exact location is unknown based on this study. Esophagogastric tube decompresses the stomach.?There is a gastrostomy tube in place as well as a jejunostomy tube. There is no evidence for dilated stomach, small bowel or colon. Procedure Note Interface, Rad In Tech Cocktail - 01/25/2017 10:50 AM EST EXAMINATION: XR ABDOMEN /KUB/FLAT PLATE/1 VIEW HISTORY: ORDERING SYSTEM PROVIDED HISTORY: Eval pancreatic stent placement and GJ tube, TECHNOLOGIST PROVIDED HISTORY: Reason for exam: Eval pancreatic stent placement and GJ tube Illness/Other Cancer History: panreas Surgery, RadiationHistory: port Encounter Type: Ongoing Additional signs and symptoms: ORDERING SYSTEM PROVIDED DIAGNOSIS CODES: C25.0 Cancer of head of pancreas (HCC) COMPARISON: [facility] CT from 01/03/2017. FINDINGS: There is a transverse laparotomy staple line. A surgical drain is seen in the right upper quadrant extending towards the midline. This is probably a subhepatic surgical drain. There is also a smaller caliber tubing extending into the subhepatic space and then looping down along the right lateral margin of the liver into a more midline position. Its exact location is unknown based on this study. Esophagogastric tube decompresses the stomach. There is a gastrostomy tube in place as well as a jejunostomy tube. There is no evidence for dilated stomach, small bowel or colon. IMPRESSION: 1. Two surgical drains are seen in the right upper quadrant. 2. Gastrostomy tube and jejunostomy tube in position. Also esophagogastric tube in position. No dilated bowel identified. PRL/ges Workstation ID: [id number] POC Glucose (01/25/2017 3:42 AM) Component Value Ref Range Glucose 123 (H) 65 - 99 mg/dL Specimen Performing Laboratory Blood [facility] [address] [place], [place] [id number] PT/INR (01/25/2017 2:32 AM) Component Value Ref Range Protime (PT) 13.9 11.8 - 14.3 seconds INR 1.1 0.8 - 1.1 Specimen Performing Laboratory Blood [facility] [address] [place] [address] Narrative During the induction phase of oral anticoagulation, the INR may not reflect the anticoagulation status of the patient. Therapeutic ranges for INR's are: Most clinical situations: INR 2.0-3.0 Mechanical Prosthetic Valve: INR 2.5-3.5 Critical: INR >5.0 Calcium, Ionized (01/25/2017 2:32 AM) Component Value Ref Range Ionized Calcium 5.1 4.5 - 5.3 mg/dL Specimen Performing Laboratory Blood [facility] [address] [place] [address] 66741 Magnesium Level (01/25/2017 2:32 AM) Component Value Ref Range Magnesium 1.8 1.6 - 2.4 mg/dL Specimen Performing Laboratory Blood [facility] [address] [place] [address] 30229 Phosphorus (01/25/2017 2:32 AM) Component Value Ref Range Phosphorus 2.9 2.3 - 3.7 mg/dL Specimen Performing Laboratory Blood [facility] [address] [place] [address] Comprehensive Metabolic Panel (01/25/2017 2:32 AM) Component Value Ref Range Sodium 136 135 - 145 mmol/L Potassium 4.0 3.5 - 5.1 mmol/L Chloride 99 98 - 108 mmol/L Bicarbonate 27 21 - 32 mmol/L Anion Gap 14 10 - 20 mmol/L Glucose 121 (H) 65 - 99 mg/dL BUN 11 8 - 25 mg/dL Creatinine 0.44 (L) 0.80 - 1.30 mg/dL eGFR 112 >=60 mL/min/1.73 m2 BUN/Creatinine Ratio 25.0 (H) 10.0 - 20.0 Total Protein 5.3 (L) 6.0 - 8.0 g/dL Albumin 2.9 (L) 3.2 - 5.2 g/dL Calcium 8.5 8.4 - 10.2 mg/dL Alkaline Phosphatase 47 40 - 150 U/L AST 95 (H) 0 - 45 U/L ALT 89 (H) 0 - 40 U/L Total Bilirubin 0.3 0.0 - 1.3 mg/dL Specimen Performing Laboratory Blood [facility] [address] [place] [address] 64697 Narrative The eGFR should be used for monitoring renal function only and not for medication dosing. CBC (01/25/2017 2:32 AM) Component Value Ref Range WBC 12.34 (H) 4.50 - 11.00 K/mcL RBC 3.35 (L) 4.50 - 5.90 M/mcL Hemoglobin 10.6 (L) 13.5 - 17.5 g/dL Hematocrit 31.5 (L) 41.0 - 53.0 % MCV 94.0 80.0 - 100.0 fL MCH 31.6 26.0 - 34.0 pg MCHC 33.7 31.0 - 37.0 g/dL Platelets 214 150 - 400 K/mcL RDW - CV 14.3 11.6 - 14.8 % MPV 9.2 9.0 - 15.5 fL Nucleated RBC 0.0 % Nucleated RBC Abs 0.00 0.00 - 0.00 K/mcL Specimen Performing Laboratory [facility] [address] [place] [address] 19637 Hemoglobin A1c (01/25/2017 2:32 AM) Component Value Ref Range Hemoglobin A1C 6.6 (H) 4.2 - 6.0 % Estimated Average Glucose 143 (H) 68 - 126 mg/dL Specimen Performing Laboratory [facility] [address] [place] [address] 01346 POC Glucose (01/24/2017 11:39 PM) Component Value Ref Range Glucose 169 (H) 65 - 99 mg/dL Specimen Performing Laboratory Blood [facility] [address] [place] [address] 31960 POC Glucose (01/24/2017 8:15 PM) Component Value Ref Range Glucose 222 (H) 65 - 99 mg/dL Specimen Performing Laboratory Blood [facility] [address] [place] [address] 37708 POC Glucose (01/24/2017 4:08 PM) Component Value Ref Range Glucose 212 (H) 65 - 99 mg/dL Specimen Performing Laboratory Blood [facility] [address] [place] [address] 53131 CBC Auto Differential (01/24/2017 2:08 PM) Component Value Ref Range WBC 11.52 (H) 4.50 - 11.00 K/mcL RBC 3.59 (L) 4.50 - 5.90 M/mcL Hemoglobin 11.4 (L) 13.5 - 17.5 g/dL Hematocrit 34.0 (L) 41.0 - 53.0 % MCV 94.7 80.0 - 100.0 fL MCH 31.8 26.0 - 34.0 pg MCHC 33.5 31.0 - 37.0 g/dL Platelets 218 150 - 400 K/mcL RDW - CV 14.1 11.6 - 14.8 % MPV 9.3 9.0 - 15.5 fL Neutrophils 91.3 % Lymphocytes 3.3 % Monocytes 4.8 % Eosinophils 0.1 % Basophils 0.2 % IG Percent 0.30Comment: The IG parameter is the percentage % of metamyelocytes, myelocytes, and promyelocytes. Neutrophils Abs 10.53 (H) 1.70 - 7.00 K/mcL Lymphocytes Abs 0.38 (L) 0.90 - 4.00 K/mcL Monocytes Abs 0.55 0.30 - 0.90 K/mcL Eosinophils Abs 0.01 0.00 - 0.50 K/mcL Basophils Abs 0.02 0.00 - 0.30 K/mcL IG Absolute 0.03 0.00 - 0.30 K/mcL Nucleated RBC 0.0 % Nucleated RBC Abs 0.00 0.00 - 0.00 K/mcL Specimen Performing Laboratory [facility] [address] [place] [address] 00874 PT/INR (01/24/2017 2:08 PM) Component Value Ref Range Protime (PT) 14.2 11.8 - 14.3 seconds INR 1.1 0.8 - 1.1 Specimen Performing Laboratory Blood [facility] [address] [place] [address] 21033 Narrative During the induction phase of oral anticoagulation, the INR may not reflect the anticoagulation status of the patient. Therapeutic ranges for INR's are: Most clinical situations: INR 2.0-3.0 Mechanical Prosthetic Valve: INR 2.5-3.5 Critical: INR >5.0 Calcium, Ionized (01/24/2017 2:08 PM) Component Value Ref Range Ionized Calcium 4.8 4.5 - 5.3 mg/dL Specimen Performing Laboratory Blood [facility] [address] [place] [address] 44744 Phosphorus (01/24/2017 2:08 PM) Component Value Ref Range Phosphorus 2.6 2.3 - 3.7 mg/dL Specimen Performing Laboratory [facility] [address] [place] [address] 68411 Magnesium (01/24/2017 2:08 PM) Component Value Ref Range Magnesium 1.7 1.6 - 2.4 mg/dL Specimen Performing Laboratory Blood [facility] [address] [place] [address] 08280 Comprehensive Metabolic Panel (01/24/2017 2:08 PM) Component Value Ref Range Sodium 136 135 - 145 mmol/L Potassium 4.1 3.5 - 5.1 mmol/L Chloride 100 98 - 108 mmol/L Bicarbonate 26 21 - 32 mmol/L Anion Gap 14 10 - 20 mmol/L Glucose 223 (H) 65 - 99 mg/dL BUN 10 8 - 25 mg/dL Creatinine 0.49 (L) 0.80 - 1.30 mg/dL eGFR 107 >=60 mL/min/1.73 m2 BUN/Creatinine Ratio 20.4 (H) 10.0 - 20.0 Total Protein 5.7 (L) 6.0 - 8.0 g/dL Albumin 3.1 (L) 3.2 - 5.2 g/dL Calcium 8.3 (L) 8.4 - 10.2 mg/dL Alkaline Phosphatase 57 40 - 150 U/L AST 80 (H) 0 - 45 U/L ALT 79 (H) 0 - 40 U/L Total Bilirubin 0.4 0.0 - 1.3 mg/dL Specimen Performing Laboratory Blood [facility] [address] [place] [address] 88169 Narrative The eGFR should be used for monitoring renal function only and not for medication dosing. CBC and Differential (01/24/2017 2:08 PM) Specimen Performing Laboratory Blood Narrative The following orders were created for panel order CBC and Differential. Procedure? Abnormality? Status? ---------? ------? CBC Auto Differential[[id number]]?Abnormal?Final result? Please view results for these tests on the individual orders. POC Glucose (01/24/2017 1:37 PM) Component Value Ref Range Glucose 204 (H) 65 - 99 mg/dL Specimen Performing Laboratory Blood [facility] [address] [place] [address] 28589 Body Fluid Anaerobic Culture (01/24/2017 9:09 AM) Component Value Ref Range Culture No Anaerobic Growth at 5 Days Specimen Performing Laboratory Body Fluid [facility] [address] [place] [address] 13828 Body Fluid Aerobic Culture (01/24/2017 9:09 AM) Component Value Ref Range Culture No Growth After 5 Days Gram Stain Result No Organisms Seen Gram Stain Result No WBC Seen Specimen Performing Laboratory Body Fluid - Bile [facility] [address] [place] [address] Tissue Exam (01/24/2017 9:06 AM) Component Value Ref Range Case Report Surgical Pathology Report? Case: [id number]? Authorizing Provider:?Tati Guillen MD? Collected:? 01/24/2017 09:06 AM? Ordering Location:? [facility]?Received:?01/24/2017 12:32 PM? [facility]? Pathologist:? Ping Brandie, MD? Specimens:? A) - Pancreatic Duct, MARGIN? B) - Pancreas, SMA MARGIN? C) - Gallbladder? D) - Lymph Node, Please Specify, HEPATIC ARTERY LYMPH NODE? E) - Whipple Resection (Stomach, Duodenum & Pancreas)? F) - Pancreas, FINAL PANCREATIC MARGIN - STITCH BENNETT FINAL MARGIN? Final Diagnosis Pancreas:?adenocarcinoma, 2.7 cm, node-Positive Specimen/procedure: Head of pancreas and duodenum, Whipple resection Tumor site: Head of pancreas Tumor size: 2.7 cm Histologic type: Adenocarcinoma Histological grade: G2 (moderately differentiated)? Tumor extension: Extrapancreatic soft tissue? Margins: Positive at radial/circumferential margin around the portal vein area (see revision note) Treatment Effect Aborted presurgical treatment Lymph-Vascular invasion: Not identified Perineural invasion: Present Lymph nodes: Positive (4 of 11)? AJCC pathologic stage: pT3, pN1, pMn/a (stage IIB) A summary of this patient? s pancreatic cancer is provided above (see more details below). A. Pancreatic duct margin, resection:? Suspicious for adenocarcinoma (see final pancreatic margin as specimen F). B. SMA margin, resection:? Margin positive for adenocarcinoma (see specimen E for final margin).? C. Gallbladder, cholecystectomy:? Unremarkable gallbladder.? D. Hepatic artery lymph node, biopsy:? One benign lymph node (0/1).? E. Head of pancreas and duodenum, pancreaticoduodenectomy, Whipple resection: Moderately differentiated adenocarcinoma of pancreas, extending into surface around the portal vein margin and duodenal muscularis propria. Four of 10 lymph nodes with metastatic adenocarcinoma (4/10). Final SMA margin negative for carcinoma (see comment for revision note). See tumor synopsis. F. Final pancreatic margin, resection:? New margin negative for carcinoma. Chronic pancreatitis. PW/mjg Diagnosis Comment Revision note:? According to Dr. Guillen, the orange-inked margin, previously designated as uncinate margin, is the final SMA margin.?No tumor is seen in the adipose tissue in this area.?Therefore, the final SMA m argin is negative for carcinoma.?The revised final diagnosis of specimen E and tumor synopsis reflect the change of SMA margin status. Clinical Information Pancreatic cancer Gross Description Specimen A.?Received fresh labeled Elbert Espinosa and designated pancreatic duct margin is a portion of may tissue, 0.6 x 0.2 x 0.1 cm.?The specimen is entirely submitted for frozen section.?All 02/26. Specimen B.?Received fresh labeled Elbert Espinosa R and designated SMA margin are two pieces of may tissue, 0.5 x 0.4 x 0.2 cm in aggregate.?The specimen is entirely submitted for frozen section.?All 03/29. Specimen C.?Received in formalin labeled Elbert Espinosa and designated gallbladder is an intact gallbladder, 12.5 x 3.7 x 3.0 cm.?A possible pericystic lymph node is identified, 0.5 cm.?The cystic duct is patent.?The serosa is bile-stained. The lumen contains green viscous bile.?No calculi are identified.?The mucosa is may-green and velvety.?The wall thickness is 0.1 cm.?Coats mmary of cassettes:?C1-possible lymph node, cystic duct margin and factory representative sections.?4/. Specimen D.?Received in formalin labeled Elbert Espinosa and designated hepatic artery lymph node is one possible lymph node, 2.0 x 1.0 x 0.5 cm.?The lymph node is serially sectioned.?All M/2. Specimen E.?Received in formalin labeled Elbert Espinosa and designated Whipple is a pancreaticoduodenectomy specimen.?Stomach is not present.?The duodenum is 21 cm in length with a circumfe rence of 3.0 cm.?The margins are previously inked and oriented in the OR by the surgeon as follows:?Bile duct margin - green, portal vein margin - blue, uncinate margin - orange, and pancreatic ma rgin - yellow.?The parenchyma surrounding the blue-inked portal vein margin is may-velasquez, 1.0 x 0.9 cm.?The surrounding pancreatic parenchyma is inked black, including the may area.?The pancreas itself is 4.0 x 2.0 x 2.0 cm.?The mass has an overall measurement of approximately 2.7 x 2.2 x 1.9 cm.?The mass comes to within 2.5 cm of the proximal duodenal margin and 13.5 cm of the distal du odenal margin.?The mass comes to within less than 0.2 cm of the pancreatic margin, 2.5 cm from the common bile duct margin, grossly appears to abut the portal vein margin and the black-inked surface adjacent to the portal vein margin.?The mass is 1.7 cm from the uncinate margin.?The mass grossly appears to surround the common bile duct but does not extend into the lumen or involve the mucosa. ?The mass is 2.0 cm from the ampulla of vater.?The mass possibly extends into the muscularis propria of the duodenum.?No duodenal adipose tissue is present.?Three possible lymph nodes are id entified adjacent to the bile duct ranging from 0.5 cm to 2.5 cm.?One possible peripancreatic lymph node is identified 0.5 cm.?Summary of cassettes:?E1- common bile duct margin; E2-shave of panc reatic margin; E3-uncinate margin perpendicular; E4-portal vein and black-inked surface perpendicular; E5-mass to common bile duct; E6-longitudinal section ampulla of vater; E7-proximal duodenal margin; E8-distal duodenal margin; E9-mass to duodenum; S17-99-kdsx thickness section of mass bisected; J28-ahnm-kqbvyf bile duct lymph node bisected; U81-kqcqldjl lymph node bisected; M84-bvvhmssw lymph node bisected; V16-E23-rcr of the peripancreatic adipose tissue with E21 containing one possible lymph node.?M/24. Specimen F.?Received in formalin labeled Elbert Espinosa and designated final pancreatic margin stitch bennett final margin is an oriented portion of pancreas, 3.0 x 1.5 x 0.5 cm.?The stitch is p resent along one aspect of the specimen.?This surface is inked blue.?The opposing surface is inked black.?Summary of cassettes:?F1-shave of stitched new final margin; F2-opposing aspect of specimen shave.?All M/2 PW/MM/ddh Intraoperative Consultation Frozen section diagnosis: Specimen A (AFS1):?Pancreatic duct margin:?Atypical glands, suspicious for adenocarcinoma. (PW) Specimen B (BFS1):?SMA margin:?Adenocarcinoma. (PW) This part of work was performed at [facility], [address] [place] [address] Microscopic Description Microscopic examination is performed. EMBEDIMG Specimen Performing Laboratory Tissue - Pancreatic Duct; Tissue - [facility] Pancreas; Tissue - Gallbladder; Tissue - [address] [place] [address] Lymph Node, Please Specify; [place] [address] Whipple Resection (Stomach, Duodenum & Pancreas) Calcium, Ionized (01/24/2017 4:15 AM) Component Value Ref Range Ionized Calcium 4.9 4.5 - 5.3 mg/dL Specimen Performing Laboratory Blood [facility] [address] [place] [address] Magnesium Level (01/24/2017 4:15 AM) Component Value Ref Range Magnesium 2.0 1.6 - 2.4 mg/dL Specimen Performing Laboratory Blood [facility] [address] [place] [address] Phosphorus (01/24/2017 4:15 AM) Component Value Ref Range Phosphorus 3.4 2.3 - 3.7 mg/dL Specimen Performing Laboratory Blood [facility] [address] [place] [address] Comprehensive Metabolic Panel (01/24/2017 4:15 AM) Component Value Ref Range Sodium 135 135 - 145 mmol/L Potassium 3.8 3.5 - 5.1 mmol/L Chloride 101 98 - 108 mmol/L Bicarbonate 26 21 - 32 mmol/L Anion Gap 12 10 - 20 mmol/L Glucose 161 (H) 65 - 99 mg/dL BUN 9 8 - 25 mg/dL Creatinine 0.45 (L) 0.80 - 1.30 mg/dL eGFR 111 >=60 mL/min/1.73 m2 BUN/Creatinine Ratio 20.0 10.0 - 20.0 Total Protein 5.6 (L) 6.0 - 8.0 g/dL Albumin 3.3 3.2 - 5.2 g/dL Calcium 8.4 8.4 - 10.2 mg/dL Alkaline Phosphatase 54 40 - 150 U/L AST 15 0 - 45 U/L ALT 13 0 - 40 U/L Total Bilirubin 0.4 0.0 - 1.3 mg/dL Specimen Performing Laboratory Blood [facility] [address] [place] [address] Narrative The eGFR should be used for monitoring renal function only and not for medication dosing. CBC (01/24/2017 4:15 AM) Component Value Ref Range WBC 5.48 4.50 - 11.00 K/mcL RBC 3.39 (L) 4.50 - 5.90 M/mcL Hemoglobin 10.8 (L) 13.5 - 17.5 g/dL Hematocrit 32.2 (L) 41.0 - 53.0 % MCV 95.0 80.0 - 100.0 fL MCH 31.9 26.0 - 34.0 pg MCHC 33.5 31.0 - 37.0 g/dL Platelets 211 150 - 400 K/mcL RDW - CV 14.3 11.6 - 14.8 % MPV 8.9 (L) 9.0 - 15.5 fL Nucleated RBC 0.0 % Nucleated RBC Abs 0.00 0.00 - 0.00 K/mcL Specimen Performing Laboratory Blood [facility] [address] [place] [id number] PT/INR (01/24/2017 4:15 AM) Component Value Ref Range Protime (PT) 14.1 11.8 - 14.3 seconds INR 1.1 0.8 - 1.1 Specimen Performing Laboratory Blood [facility] [address] [place] [id number] Narrative During the induction phase of oral anticoagulation, the INR may not reflect the anticoagulation status of the patient. Therapeutic ranges for INR's are: Most clinical situations: INR 2.0-3.0 Mechanical Prosthetic Valve: INR 2.5-3.5 Critical: INR >5.0 Prepare RBC: 4 Units (01/23/2017 6:55 PM) Component Value Ref Range Cross Match Compatible Blood Type Code 5100 Blood Type O Pos Unit Number [id number] Status Info Released Product ID Red Blood Cells Product Code [id number] Cross Match Compatible Blood Type Code 5100 Blood Type O Pos Unit Number [id number] Status Info Released Product ID Red Blood Cells Product Code [id number] Cross Match Compatible Blood Type Code 5100 Blood Type O Pos Unit Number [id number] Status Info Released Product ID Red Blood Cells Product Code [id number] Cross Match Compatible Blood Type Code 5100 Blood Type O Pos Unit Number [id number] Status Info Released Product ID Red Blood Cells Product Code [id number] Specimen Performing Laboratory Blood [facility] [address] [place] [address] ABORH Verification (01/23/2017 4:51 PM) Component Value Ref Range ABORh O Positive Verification of ABORH ABO/Rh Verification Specimen Performing Laboratory Blood [facility] [address] [place] [address] Narrative Patient's ABO/Rh is verified. POC Glucose (01/23/2017 4:06 PM) Component Value Ref Range Glucose 112 (H) 65 - 99 mg/dL Specimen Performing Laboratory Blood [facility] [address] [place] [address] XR Chest 1 View (01/23/2017 3:56 PM) Specimen Performing Laboratory [facility] Impressions 1. There is no immediate complication following new central line placement on the right. 2. Chronic emphysema redemonstrated. Workstation ID:? [id number] Narrative EXAMINATION: XR CHEST PA/AP HISTORY: s/p RIJ CVC placement COMPARISON: Chest radiograph, 12/09/2016 FINDINGS: Cardiomediastinal silhouette is normal.?There is chronic emphysema with bullous changes most notable at the right apex.?No pleural effusion.?No acute osseous abnormality.?Stable right MediPort with new right IJ CVC, tip in the SVC.?No evidence of pneumothorax. Procedure Note Interface, Rad In Tech Cocktail - 01/23/2017 4:19 PM EST EXAMINATION: XR CHEST PA/AP HISTORY: s/p RIJ CVC placement COMPARISON: Chest radiograph, 12/09/2016 FINDINGS: Cardiomediastinal silhouette is normal. There is chronic emphysema with bullous changes most notable at the right apex. No pleural effusion. No acute osseous abnormality. Stable right MediPort with new right IJ CVC, tip in the SVC. No evidence of pneumothorax. IMPRESSION: 1. There is no immediate complication following new central line placement on the right. 2. Chronic emphysema redemonstrated. Workstation ID: [id number] Comprehensive Metabolic Panel (01/23/2017 1:30 PM) Component Value Ref Range Sodium 131 (L) 135 - 145 mmol/L Potassium 4.3Comment: Slightly Hemolyzed 3.5 - 5.1 mmol/L Chloride 97 (L) 98 - 108 mmol/L Bicarbonate 24 21 - 32 mmol/L Anion Gap 14 10 - 20 mmol/L Glucose 109 (H) 65 - 99 mg/dL BUN 15 8 - 25 mg/dL Creatinine 0.53 (L) 0.80 - 1.30 mg/dL eGFR 103 >=60 mL/min/1.73 m2 BUN/Creatinine Ratio 28.3 (H) 10.0 - 20.0 Total Protein 6.9 6.0 - 8.0 g/dL Albumin 3.9 3.2 - 5.2 g/dL Calcium 9.1 8.4 - 10.2 mg/dL Alkaline Phosphatase 64 40 - 150 U/L AST 23Comment: Slightly Hemolyzed 0 - 45 U/L ALT 17Comment: Slightly Hemolyzed 0 - 40 U/L Total Bilirubin 0.4 0.0 - 1.3 mg/dL Specimen Performing Laboratory Blood [facility] [address] [place] [address] Narrative The eGFR should be used for monitoring renal function only and not for medication dosing. PT/INR (01/23/2017 1:30 PM) Component Value Ref Range Protime (PT) 13.1 11.8 - 14.3 seconds INR 1.0 0.8 - 1.1 Specimen Performing Laboratory Blood [facility] [address] [place] [address] Narrative During the induction phase of oral anticoagulation, the INR may not reflect the anticoagulation status of the patient. Therapeutic ranges for INR's are: Most clinical situations: INR 2.0-3.0 Mechanical Prosthetic Valve: INR 2.5-3.5 Critical: INR >5.0 CBC (01/23/2017 1:30 PM) Component Value Ref Range WBC 6.50 4.50 - 11.00 K/mcL RBC 3.84 (L) 4.50 - 5.90 M/mcL Hemoglobin 12.1 (L) 13.5 - 17.5 g/dL Hematocrit 36.5 (L) 41.0 - 53.0 % MCV 95.1 80.0 - 100.0 fL MCH 31.5 26.0 - 34.0 pg MCHC 33.2 31.0 - 37.0 g/dL Platelets 242 150 - 400 K/mcL RDW - CV 14.2 11.6 - 14.8 % MPV 9.1 9.0 - 15.5 fL Nucleated RBC 0.0 % Nucleated RBC Abs 0.00 0.00 - 0.00 K/mcL Specimen Performing Laboratory Blood [facility] [address] [place] [address] Type and Screen (01/23/2017 1:30 PM) Component Value Ref Range ABORh O Positive Antibody Screen Negative Specimen Expires 01/26/2017 23:59 EST Specimen Performing Laboratory Blood [facility] [address] [place] [address] ECG 12 Lead (01/23/2017 12:52 PM) Component Value Ref Range Ventricular Rate 77 BPM Atrial Rate 77 BPM P-R Interval 180 ms QRS Duration 112 ms Q-T Interval 392 ms QTC Calculation (Bezet) 443 ms P [place] 9 degrees R [place] -51 degrees T [place] 33 degrees Specimen Performing Laboratory [facility] Narrative Normal sinus rhythm Left anterior fascicular block Incomplete right bundle branch block Abnormal ECG Confirmed by TATI CRUZ ([id number]) on 01/23/2017 4:45:52 PM in this encounter Visit Diagnoses Diagnosis Malignant neoplasm of head of pancreas (HCC) - Primary Malignant neoplasm of head of pancreas Cancer of head of pancreas (HCC) Malignant neoplasm of head of pancreas Administered Medications Inactive Administered Medications - up to 3 most recent administrations Medication Order MAR Action Action Date Dose Rate Site Adult 2-in-1 TPN New Bag 01/31/2017 22:35 EST 40 mL/hr Intravenous, at 40 mL/hr, Continuous TPN, Starting [facility] 01/31/17 at 2200, For 24 hours, Infuse via Central Line ONLY!! Parenteral Nutrition MUST be administered through a dedicated infusion port and filtered with a 0.2 micron in-line filter at all times. Discard any unused volume after 24 hours. Infuse with 0.2 Micron Filter Rate/Dose Verify 02/01/2017 02:01 EST 40 mL/hr Rate/Dose Verify 02/01/2017 05:59 EST 40 mL/hr Adult 2-in-1 TPN New Bag 02/01/2017 22:49 EST 83 mL/hr Intravenous, at 83 mL/hr, Continuous TPN, Starting [facility] 02/01/17 at 2200, For 24 hours, Infuse via Central Line ONLY!! Parenteral Nutrition MUST be administered through a dedicated infusion port and filtered with a 0.2 micron in-line filter at all times. Discard any unused volume after 24 hours. Infuse with 0.2 Micron Filter Rate/Dose Verify 02/02/2017 00:56 EST 83 mL/hr Adult 2-in-1 TPN New Bag 02/02/2017 21:35 EST 83 mL/hr Intravenous, at 83 mL/hr, Continuous TPN, Starting Sun02/02/17 at 2200, For 24 hours, Infuse via Central Line ONLY!! Parenteral Nutrition MUST be administered through a dedicated infusion port and filtered with a 0.2 micron in-line filter at all times. Discard any unused volume after 24 hours. Infuse with 0.2 Micron Filter Rate/Dose Change 02/03/2017 03:54 EST 83 mL/hr Rate/Dose Verify 02/03/2017 10:40 EST 83 mL/hr Adult 2-in-1 TPN Rate/Dose Change 02/04/2017 03:56 EST 40 mL/hr Intravenous, at 40 mL/hr, Continuous TPN, Starting 02/03/17 at 2200, For 24 hours, Infuse via Central Line ONLY!! Parenteral Nutrition MUST be administered through a dedicated infusion port and filtered with a 0.2 micron in-line filter at all times. Discard any unused volume after 24 hours. Infuse with 0.2 Micron Filter Rate/Dose Change 02/04/2017 05:04 EST 40 mL/hr Rate/Dose Change 02/04/2017 09:54 EST 40 mL/hr clindamycin (CLEOCIN) IVPB 900 mg New Bag 01/24/2017 21:39 EST 900 mg 100 mL/hr (premix) 900 mg, Intravenous, at 100 mL/hr, Every 8 hours, First dose on Sun01/24/17 at 2000, For 1 dose, Indication (POST PROCEDURE): Whipple Rate/Dose Verify 01/24/2017 21:40 EST 100 mL/hr dextrose 5 % and sodium Rate/Dose Change 01/31/2017 09:53 EST 100 mL/hr 100 mL/hr chloride 0.45 % with KCl 20 mEq/L infusion 100 mL/hr, Intravenous, Continuous, Starting Sun01/26/17 at 0800 New Bag 01/31/2017 11:03 EST 100 mL/hr 100 mL/hr Rate/Dose Verify 01/31/2017 22:30 EST 100 mL/hr 100 mL/hr dextrose 5 % in lactated Rate/Dose Verify 01/24/2017 03:09 EST 100 mL/hr 100 mL/hr ringers infusion 100 mL/hr, Intravenous, Continuous, Starting 01/23/17 at 1630 Rate/Dose Change 01/24/2017 12:29 EST 50 mL/hr 50 mL/hr Rate/Dose Change 01/24/2017 12:30 EST 50 mL/hr 50 mL/hr dextrose 5 % in lactated Rate/Dose Verify 01/26/2017 05:33 EST 125 mL/hr 125 mL/hr ringers infusion 125 mL/hr, Intravenous, Continuous, Starting Sun01/24/17 at 1415 Rate/Dose Verify 01/26/2017 05:40 EST 125 mL/hr 125 mL/hr Rate/Dose Verify 01/26/2017 06:42 EST 125 mL/hr 125 mL/hr enoxaparin (LOVENOX) syringe 40 mg Given 02/02/2017 08:32 EST 40 mg 40 mg, Subcutaneous, Daily, First dose on Sun01/24/17 at 1800, Administer in abdomen unless otherwise directed by prescriber. Notify physician if patient refuses. Given 02/03/2017 09:23 EST 40 mg Given 02/04/2017 08:59 EST 40 mg fat emulsion (INTRALIPID,LIPOSYN) 20 % New Bag 02/03/2017 21:25 EST 250 mL 50 mL/hr infusion 250 mL 250 mL, Intravenous, at 50 mL/hr, Every 24 hours, First dose on Sun01/31/17 at 2200, Infuse with 1.2 micron filter Rate/Dose Verify 02/03/2017 21:26 EST 50 mL/hr Rate/Dose Change 02/04/2017 02:26 EST 5 mL/hr furosemide (LASIX) injection 20 mg Given 01/28/2017 12:57 EST 20 mg 20 mg, Intravenous, Once, 01/28/17 at 1230, For 1 dose furosemide (LASIX) injection 40 mg Given 01/26/2017 10:05 EST 40 mg 40 mg, Intravenous, Once, 01/26/17 at 1015, For 1 dose gentamicin (GARAMYCIN) 5 mg/kg = New Bag 01/25/2017 09:52 EST 340 mg 108.5 mL/hr 340 mg in sodium chloride 0.9 % (NS) 108.5 mL IVPB 340 mg (rounded from 349 mg = 5 mg/kg ? 69.8 kg Adjusted weight), Intravenous, at 108.5 mL/hr, Once, [facility] 01/25/17 at 0800, For 1 dose, Indication: Other: (specify) Rate/Dose Change 01/25/2017 09:53 EST 109 mL/hr heparin, porcine (PF) injection 500 Units Given 02/05/2017 16:09 EST 500 Units 500 Units, Intracatheter, Once as needed, other, Implanted port, Starting 02/05/17 at 1422, For 1 dose, Prior to discharge and needle removal, flush Implanted Port with 10ml NS and then 500 units/5ml Heparin. Do NOT use heparin if patient has heparin-induced thrombocytopenia, flush only with 10ml NS. hydrALAZINE (APRESOLINE) injection 10 mg Given 02/01/2017 16:39 EST 10 mg 10 mg, Intravenous, Every 4 hours PRN, SBP > 170 or DBP > 100, hold for HR >100, Starting [facility] 02/01/17 at 1632 Given 02/02/2017 04:41 EST 10 mg Given 02/03/2017 17:24 EST 10 mg HYDROmorphone (DILAUDID) 0.5 mg/mL injection 0.5 Given 01/30/2017 16:55 EST 0.5 mg mg 0.5 mg, Intravenous, Every 3 hours PRN, moderate to severe pain, Starting 01/30/17 at 1642 Given 01/30/2017 22:40 EST 0.5 mg Given 02/05/2017 12:56 EST 0.5 mg HYDROmorphone (DILAUDID) 0.5 mg/mL injection Given 01/29/2017 07:03 EST 0.5 mg 0.5-1.5 mg 0.5-1.5 mg, Intravenous, Every 4 hours PRN, moderate to severe pain, Starting 01/28/17 at 0951, [] Initiate with 1 mg every 3 hours prn moderate to severe pain. [] For unrelieved pain, may give additional 0.5 mg within 30 minutes of initial dose. [] If pain is RELIEVED after repeat dose, change to 1.5 mg every 3 hours prn moderate to severe pain. [] If pain is UNrelieved after repeat dose or patient requires dose reduction, call physician. [] May use IV for breakthrough or if unable to tolerate oral route. Given 01/29/2017 10:05 EST 1 mg Given 01/29/2017 14:00 EST 1 mg HYDROmorphone (DILAUDID) 0.5 mg/mL injection Given 01/29/2017 21:42 EST 1 mg 0.5-1.5 mg 0.5-1.5 mg, Intravenous, Every 3 hours PRN, moderate to severe pain, Starting 01/29/17 at 1730, [] Initiate with 1 mg every 3 hours prn moderate to severe pain. [] For unrelieved pain, may give additional 0.5 mg within 30 minutes of initial dose. [] If pain is RELIEVED after repeat dose, change to 1.5 mg every 3 hours prn moderate to severe pain. [] If pain is UNrelieved after repeat dose or patient requires dose reduction, call physician. [] May use IV for breakthrough or if unable to tolerate oral route. Given 01/30/2017 05:32 EST 1 mg Given 01/30/2017 13:00 EST 1 mg HYDROmorphone (DILAUDID) injection 0.5 mg Given 01/26/2017 09:02 EST 0.5 mg 0.5 mg, Intravenous, Every 15 min PRN, moderate to severe pain, Starting Sun01/24/17 at 1841, [] Initiate with 1 mg every 3 hours prn moderate to severe pain. [] For unrelieved pain, may give additional 0.5 mg within 30 minutes of initial dose. [] If pain is RELIEVED after repeat dose, change to 1.5 mg every 3 hours prn moderate to severe pain. [] If pain is UNrelieved after repeat dose or patient requires dose reduction, call physician. [] May use IV for breakthrough or if unable to tolerate oral route. HYDROmorphone (DILAUDID) injection 0.5-1.5 mg Given 01/24/2017 13:56 EST 0.5 mg 0.5-1.5 mg, Intravenous, Every 3 hours PRN (may repeat), moderate to severe pain, Starting Sun01/24/17 at 1351, PACU to Post Procedure, [] Initiate with 1 mg every 3 hours prn moderate to severe pain. [] For unrelieved pain, may give additional 0.5 mg within 30 minutes of initial dose. [] If pain is RELIEVED after repeat dose, change to 1.5 mg every 3 hours prn moderate to severe pain. [] If pain is UNrelieved after repeat dose or patient requires dose reduction, call physician. [] May use IV for breakthrough or if unable to tolerate oral route. Given 01/24/2017 14:36 EST 1 mg HYDROmorphone 0.02 mg/mL with Rate/Dose Change 01/24/2017 15:23 EST 8 mL/hr bupivacaine 0.0625% in sodium chloride (NS) 0.9% 250 mL epidural at 8 mL/hr, Epidural, Continuous, Starting Sun01/24/17 at 0915, For 4 days, Sign and Release HYDROmorphone 0.02 mg/mL with Rate/Dose Verify 01/27/2017 10:00 EST 8 mL/hr bupivacaine 0.0625% in sodium chloride (NS) 0.9% 250 mL epidural at 8 mL/hr, Epidural, Continuous, Starting Sun01/24/17 at 1730 Rate/Dose Verify 01/27/2017 12:00 EST 8 mL/hr New Bag 01/28/2017 02:48 EST 8 mL/hr insulin lispro (HumaLOG) injection 0-30 Units Given 01/24/2017 14:00 EST 2 Units 0-30 Units, Subcutaneous, Every 4 hours while awake, First dose on Sun01/24/17 at 1400, Continue to administer as long as tube feedings or parenteral nutrition are running. If tube feed or parenteral nutrition held, hold the base dose but continue to give corrective insulin as ordered. Resume total insulin once tube feedings resumed. Given 01/24/2017 18:09 EST 2 Units insulin lispro (HumaLOG) injection 0-30 Units Given 01/29/2017 20:07 EST 0 Units 0-30 Units, Subcutaneous, Every 4 hours while awake, First dose on Sun01/24/17 at 2200, Continue to administer as long as tube feedings or parenteral nutrition are running. If tube feed or parenteral nutrition held, hold the base dose but continue to give corrective insulin as ordered. Resume total insulin once tube feedings resumed. Given 01/30/2017 08:36 EST 4 Units Given 01/31/2017 09:58 EST 4 Units insulin lispro (HumaLOG) injection 0-30 Units Given 02/03/2017 03:58 EST 6 Units 0-30 Units, Subcutaneous, Every 4 hours, First dose on Sun01/31/17 at 1600, Continue to administer as long as tube feedings or parenteral nutrition are running. If tube feed or parenteral nutrition held, hold the base dose but continue to give corrective insulin as ordered. Resume total insulin once tube feedings resumed. Given 02/03/2017 13:20 EST 4 Units Given 02/03/2017 21:17 EST 6 Units insulin lispro (HumaLOG) injection 0-30 Units Given 02/04/2017 21:30 EST 2 Units 0-30 Units, Subcutaneous, Every 4 hours, First dose on Sun02/04/17 at 1200, Continue to administer as long as tube feedings or parenteral nutrition are running. If tube feed or parenteral nutrition held, hold the base dose but continue to give corrective insulin as ordered. Resume total insulin once tube feedings resumed. insulin NPH (HumuLIN,NovoLIN) injection 10 Given 01/24/2017 16:09 EST 10 Units Units 10 Units, Subcutaneous, Once, Sun01/24/17 at 1600, For 1 dose, Call ordering physician before holding basal insulin. If patient NPO, administer the scheduled evening dose of NPH insulin and one-half (rounded up to the nearest unit) of the scheduled morning dose unless otherwise instructed by the ordering physician. ipratropium-albuterol (DUO-NEB) 0.5-2.5 mg/3 ml Given 01/24/2017 12:27 EST 3 mL nebulizer solution 3 mL 3 mL, Inhalation, Once, Sun01/24/17 at 1315, For 1 dose, PACU (only) ipratropium-albuterol (DUO-NEB) 0.5-2.5 mg/3 ml Given 01/26/2017 09:22 EST 3 mL nebulizer solution 3 mL 3 mL, Inhalation, Once, Sun01/26/17 at 1000, For 1 dose lactated ringers bolus 1,000 mL New Bag 01/25/2017 13:22 EST 1,000 mL 500 mL/hr 1,000 mL, Intravenous, Administer over 120 Minutes, Once, [facility] 01/25/17 at 1345, For 1 dose Rate/Dose Verify 01/25/2017 13:22 EST 500 mL/hr magnesium sulfate 2 g in sterile water New Bag 01/26/2017 04:22 EST 2 g 50 mL/hr (SW) 50 mL IVPB 2 g, Intravenous, at 50 mL/hr, Once, Sun01/26/17 at 0415, For 1 dose, 2gm IVPB over 60 minutes x 1 for serum Magnesium in range of 1.4-1.7 mg/dL per Critical/ Intermediate Care Electrolyte Replacement Therapy. Rate/Dose Verify 01/26/2017 04:22 EST 50 mL/hr Rate/Dose Verify 01/26/2017 04:29 EST 50 mL/hr metoclopramide (REGLAN) injection 10 mg Given 02/04/2017 20:40 EST 10 mg 10 mg, Intravenous, Every 6 hours, First dose on Sun01/29/17 at 0900 Given 02/05/2017 03:00 EST 10 mg Given 02/05/2017 08:12 EST 10 mg mometasone-formoterol 200-5 mcg/actuation HFAA Given 01/26/2017 11:27 EST 400 mcg 400 mcg 400 mcg (2 puff), Inhalation, 2 times daily PRN, Shortness of breath/Wheezing, Starting Sun01/26/17 at 1100, Pt. OK to use home supply. Will submit to pharmacy. mometasone-formoterol 200-5 mcg/actuation HFAA Given 02/04/2017 08:59 EST 400 mcg 400 mcg 400 mcg (2 puff), Inhalation, 2 times daily (RT), First dose on Sun01/26/17 at 2000, Pt. OK to use home supply. Will submit to pharmacy. Given 02/04/2017 20:36 EST 400 mcg Given 02/05/2017 08:14 EST 400 mcg nalbuphine (NUBAIN) injection 2.5 mg Given 01/27/2017 06:37 EST 2.5 mg 2.5 mg, Intravenous, Every 6 hours PRN, itching, Starting Sun01/24/17 at 1636, For itching while Epidural Infusion orders in effect. Given 01/28/2017 04:55 EST 2.5 mg oxyCODONE (ROXICODONE) immediate release tablet Given 02/04/2017 14:32 EST 10 mg 5-10 mg 5-10 mg, Oral, Every 4 hours PRN, moderate to severe pain, Starting Sun01/30/17 at 1641, [] Initiate with 5 mg oral every 4 hours prn moderate to severe pain. [] For unrelieved pain, may repeat 5 mg oral dose within 60 minutes of initial dose. [] If pain is RELIEVED after repeat dose, change to 10 mg oral every 4 hours prn moderate to severe pain. [] If pain is UNrelieved after repeat dose, or patient requires dose reduction, call physician. Given 02/04/2017 20:44 EST 10 mg Given 02/05/2017 10:46 EST 10 mg pantoprazole (PROTONIX) injection 40 mg Given 02/03/2017 06:23 EST 40 mg 40 mg, Intravenous, Every morning before breakfast, First dose on Sun01/24/17 at 1630 Given 02/04/2017 06:47 EST 40 mg Given 02/05/2017 06:47 EST 40 mg potassium chloride 10 mEq in 100 mL New Bag 01/25/2017 06:27 EST 10 mEq 200 mL/hr IVPB 10 mEq, Intravenous, at 200 mL/hr, Every 30 min, First dose on [facility] 01/25/17 at 0500, For 2 doses, 10mEq IVPB via CENTRAL LINE over 30 minutes x 2 doses (for total of 20 mEq over 60 minutes) for serum Potassium in range of 3.5-4 mEq/L per Critical Care Electrolyte Replacement Therapy. (CRITICAL CARE) Rate/Dose Verify 01/25/2017 06:27 EST 200 mL/hr Rate/Dose Verify 01/25/2017 06:51 EST 200 mL/hr potassium chloride 10 mEq in 100 mL New Bag 01/26/2017 05:31 EST 10 mEq 200 mL/hr IVPB 10 mEq, Intravenous, at 200 mL/hr, Every 30 min, First dose on Sun01/26/17 at 0415, For 2 doses, 10mEq IVPB via CENTRAL LINE over 30 minutes x 2 doses (for total of 20 mEq over 60 minutes) for serum Potassium in range of 3.5-4 mEq/L per Critical Care Electrolyte Replacement Therapy. (CRITICAL CARE) Rate/Dose Verify 01/26/2017 05:32 EST 200 mL/hr Rate/Dose Verify 01/26/2017 05:40 EST 200 mL/hr sodium chloride (PF) (NS) 0.9 % flush 10 mL Given 01/23/2017 21:02 EST 10 mL 10 mL, Intracatheter, Every 8 hours scheduled, First dose on Sun01/23/17 at 1645, Flush UNUSED central venous catheter lumens. Given 01/24/2017 06:00 EST 10 mL sodium chloride (PF) (NS) 0.9 % flush 5 mL Given 01/26/2017 20:53 EST 5 mL 5 mL, Intravenous, As needed, line care, Starting Sun01/24/17 at 1316 sodium chloride (PF) (NS) 0.9 % flush 5 mL Given 02/04/2017 14:32 EST 5 mL 5 mL, Intravenous, Every 8 hours scheduled, First dose on Sun01/24/17 at 1415, Saline lock Given 02/04/2017 22:00 EST 5 mL Given 02/05/2017 06:00 EST 5 mL sodium chloride 0.9% (NS) Rate/Dose Verify 02/01/2017 02:01 EST 60 mL/hr 60 mL/hr 60 mL/hr, Intravenous, Continuous, Starting 01/31/17 at 2200 Rate/Dose Verify 02/01/2017 05:59 EST 60 mL/hr 60 mL/hr Restarted 02/02/2017 00:56 EST 40 mL/hr 40 mL/hr sodium chloride 0.9% (NS) Rate/Dose Change 02/03/2017 10:39 EST 40 mL/hr 40 mL/hr 40 mL/hr, Intravenous, Continuous, Starting [facility] 02/01/17 at 2200, Rate decreased to keep total fluids same with TPN rate increase to goal New Bag 02/03/2017 10:39 EST 40 mL/hr 40 mL/hr Rate/Dose Verify 02/03/2017 10:40 EST 40 mL/hr 40 mL/hr in this encounter Insurance Payer Benefit Plan / Group Subscriber ID Type Phone Address [employer] PLUS O [id number] HCAP/JESSICA 80% JESSICA [id number] [phone] [place] [phone] as of this encounter
--- OUTSIDE RECORDS SUMMARY | 2018-05-19 09:06 | XMS RPT_ITS | Summary of Care ---
:1940 Author Organization [facility] Address [address] [place] [address] Phone Care Team Providers Name Role Phone Jus Allison MD Primary Care Provider Sherif Valles MD Unavailable Varsha Pineda CNP Unavailable Fran Burris MD Unavailable Inder Guillen MD Unavailable Encounter Details Date Type Department Care Team Description 01/23/2017 Hospital Encounter [facility] [place] Allergies Active Allergy Reactions Severity Noted Date [...] capsule (six) hours as needed for itching. as of this encounter Active [...] Not on file as of this encounter Miscellaneous Notes Transfer Center Note - Lexy Bowen RN - 01/03/2017 9:09 AM ESTNarrative: Original request received 12/29/16, being entered today as no longer >25 days away. Ptto be da from home 01/23/17, for OR 01/24/17 for [place]. Call [phone]. in this encounter Plan of Treatment Upcoming Encounters Date Type Specialty Care Team Description 02/09/2017 Office Visit Primary Care Jus Allison MD [address] [place] [address] 02/13/2017 Follow-Up Surgical Oncology Inder Guillen MD [address] [facility] [address] [place], [place] [address] 02/15/2017 Office Visit Oncology Sherif Valles MD [address] [place] [address] [address] [place] [address] [phone] Health Maintenance Due Date Last Done Comments TETANUS EVERY 10 YR 1940 ZOSTER VACCINE 2001 PNEUMOCOCCAL VACCINE AGE 65+ (1 of 2 - 2006 PCV13) SEQUENTIAL INFLUENZA VACCINE (#1) 2016 Low-dose CT Lung Cancer Screen 01/03/2018 01/03/2017, 10/16/2016 COLONOSCOPY 07/27/2021 07/27/2016, 01/12/2010 as of this encounter Implants Implanted Type Area Senior Mainframe Programmer Analyst Device Expiration Model / Identifier Date Serial / Lot Port Implanted Mri Isp W/8fr Cath Powerport - [id number] Catheter - Right: BARD PERIP 12/26/2017 [id number] / Implanted: Qty: 1 on 12/04/2016 by Kota Vences MD Implant Subclavian / [id number] as of this encounter Insurance Payer Benefit Plan / Group Subscriber ID Type Phone Address [employer] [facility] [id number] HCAP/JESSICA 80% JESSICA [id number] as of this encounter
--- OUTSIDE RECORDS SUMMARY | 2018-05-19 09:06 | XMS RPT_ITS | Summary of Care ---
:1940 Author Organization [facility] Address [address] [place] [address] Phone Care Team Providers Name Role Phone Jus Allison MD Primary Care Provider Sherif Valles MD Unavailable Varsha Pineda CNP Unavailable Fran Burrsi MD Unavailable Inder Guillen MD Unavailable Virginia Lawrence RN Patient Navigator Unavailable Carlos Gao RN Ohg Business Teacher Unavailable Reason for Visit Reason Comments Chronic Care Management Encounter Details Date Type Department Care Team Description 02/13/2017 Patient Outreach [facility] Carlos Gao Chronic Care [address] [facility] Edward, RN Management [address] [place] [address] Allergies Active Allergy Reactions Severity Noted Date [...] file as of this encounter Progress Notes Carlos Gao RN - 02/13/2017 10:16 AM ESTPatient identification verified by at least three identifiers prior to case management which included Full Name, Date of and Phone number . Patient agreed to exchange information. Had whipple surgery. Going to surgeon today to get zach and drain removed. Pt has pt navigator.Is in touch often with her. Pt states they have several wonderful [facility] people helping them. He is in contact with a full medical staff and does not feel that more management from this [facility] isnecessary. Patient denies any further questions or concerns. Provided [facility] care aid name andcontact information. Patient encouraged to call if questions or concerns arise. No further contactscheduled at this time. in this encounter Plan of Treatment Upcoming Encounters Date Type Specialty Care Team Description 02/13/2017 Follow-Up Surgical Oncology Inder Guillen MD [address] [facility] [address] [place] [address] [phone] 02/15/2017 Office Visit Oncology Sherif Valles MD [address] [facility] [address] [place] [address] [phone] 05/11/2017 Office Visit Primary Care Jus Allison MD [address] [place] [address] [phone] Health Maintenance Due Date Last Done Comments TETANUS EVERY 10 YR 1940 ZOSTER VACCINE 2001 PNEUMOCOCCAL VACCINE AGE 65+ (1 of 2 - 2006 PCV13) SEQUENTIAL INFLUENZA VACCINE (#1) 2016 Low-dose CT Lung Cancer Screen 01/03/2018 01/03/2017, 10/16/2016 COLONOSCOPY 07/27/2021 07/27/2016, 01/12/2010 as of this encounter Implants Implanted Type Area Electronic Parts Designer Device Expiration Model / Identifier Date Serial / Lot Port Implanted Mri Isp W/8fr Cath Powerport - [id number] Catheter - Right: BARD PERIP 12/26/2017 [id number] / Implanted: Qty: 1 on 12/04/2016 by Kota Vences MD Implant Subclavian / [id number] Cath 90cm Peritoneal Open End W/Wall Slits - [id number] Catheter - N/A: Abdomen MEDTRO SHAGGY [id number] / Implanted: Qty: 1 on 01/24/2017 by Inder Guillen MD Implant / Sealant 10ml Floseal Matrix Hemostatic W/Ndl-Free Adapter - [id number] N/A: Abdomen TOBAR BIO 03/20/2018 [id number] / Implanted: Qty: 2 on 01/24/2017 by Inder Guillen MD / [id number] as of this encounter Insurance Payer Benefit Plan / Group Subscriber ID Type Phone Address [facility] [id number] HCAP/JESSICA 80% JESSICA [id number] as of this encounter
--- OUTSIDE RECORDS SUMMARY | 2018-05-19 09:06 | XMS RPT_ITS | Summary of Care ---
:[address] [facility] Address [address] [place] [address] Phone Care Team Providers Name Role Phone Jus Allison MD Primary Care Provider Sherif Valles MD Unavailable Varsha Pineda CNP Unavailable Fran Burris MD Unavailable Inder Guillen MD Unavailable Virginia Lawrence RN Patient Navigator Unavailable Reason for Visit Reason Comments Transition Of Care Encounter Details Date Type Department Care Team Description 02/06/2017 Patient Outreach [facility] Dorys Dunne, Transition Of Care Physicians Primary RN Care [address] [place] [address] Allergies Active Allergy Reactions Severity Noted [...] file as of this encounter Progress Notes Dorys Dunne RN - 02/06/2017 11:24 AM ESTFormatting of this note may be different from the original. Spoke to patients Patient was discharged from [facility] Discharge diagnosis: Wipple, Pancreatic cancer Date of discharge: 02/05/2017 Patient stated reason for hospitalization pt was admitted for surgery, pancreatic cancer States has been feeling feels good, eating ok. Pain well controlled and sleeping ok. Medications: aspirin 81 MG EC tablet 1 tablet, Daily diphenhydrAMINE (BENADRYL) 25 mg capsule 25 mg, Every 6 hours PRN Summary: Take 25 mg by mouth every 6 (six) hours as needed for itching. Dose, Route, Frequency: 25 mg, Oral, Every 6 hours PRN Ord/Sold: 12/15/2016 (O) Report Taking: Long-term: Med Dose History Patient Sig: Take 25 mg by mouth every 6 (six) hours as needed for itching. Ordered on: 12/15/2016 Authorized by: PROVIDER, HISTORICAL docusate sodium (COLACE) 100 MG capsule 100 mg, 2 times daily enoxaparin (LOVENOX) 40 mg/0.4 mL Syrg 40 mg, Daily magnesium hydroxide (MOM) 400 mg/5 mL Susp 30 mL, Daily metoclopramide (REGLAN) 10 MG tablet 10 mg, 4 times daily with meals and nightly mometasone-formoterol (DULERA) 200-5 mcg/actuation HFAA 2 puff, 2 times daily omeprazole (PRILOSEC) 40 MG capsule 40 mg, Daily oxyCODONE (ROXICODONE) 5 MG immediate release tablet 5-10 mg, Every 4 hours PRN oxygen Have you filled any new prescriptions? yes Are you taking your medications as directed on the hospital discharge? yes ADLs: ? Currently meeting ADL needs by Mild difficulty, requires minimal assistance ? Mobility walks with device, occasionally using walker to balance when getting up out of the chair. ? Assistance needed with Pt needs assistance with making meals and occasionally with getting dressed, due to tubes. ? Sleeping sleeping well ? Bowel/Bladder Normal consistency no problems with bladder pt states he is taking his medicationsas prescribed. BM 1x/day, denies nausea or vomiting. ? Pain intermittent, mild pt states he is taking medication every 4 hours. Oxycodone 5 mg. Last doses. 8pm 10 mg, 345am 5 mg and 835 5 mg. Pt is trying to space medications out, per . Pain well controlled. Rates pain 4/10. Tolerable Pts states they have a follow up appointmetn with Dr. Tarango 02/13/2017 to remove zach and drain. Pt currently has a gastric tube, j drain and zach. states he is eating 3 meals a day, without difficulty. She does not understand why he has to have all the drains. Active listening and support provided. No needs. pts requesting an appointment to see. Dr. Allison. appt scheduled. ge Verbalizes awareness of worsened/new symptoms such as chest pain, dyspnea, fever chills. Wound. Increased redness, drainage, odor. Inability to tolerate food, Medications or fluid or inability to havea bm, - ER. Other tests/providers/clinics Established/Office Visit 11:00 AM Sherif Valles MD [facility] [phone] Advised to: ? Bring all medications with you to your appointment ? Bring meter if diabetic to appointment with you ? Appointment date/time: 02/09/2017- per pts wifes request. in this encounter Plan of Treatment Upcoming Encounters Date Type Specialty Care Team Description 02/09/2017 Office Visit Primary Care Jus Allison MD [address] [place] [address] 02/13/2017 Follow-Up Surgical Oncology Inder Guillen MD [address] [facility] [address] [place] [address] [phone] 02/15/2017 Office Visit Oncology Sherif Valles MD [address] [facility] [address] [place] [address] [phone] Health Maintenance Due Date Last Done Comments TETANUS EVERY 10 YR 1940 ZOSTER VACCINE 2001 PNEUMOCOCCAL VACCINE AGE 65+ (1 of 2 - 2006 PCV13) SEQUENTIAL INFLUENZA VACCINE (#1) 2016 Low-dose CT Lung Cancer Screen 01/03/2018 01/03/2017, 10/16/2016 COLONOSCOPY 07/27/2021 07/27/2016, 01/12/2010 as of this encounter Implants Implanted Type Area Loss Control Technician Device Expiration Model / Identifier Date Serial / Lot Port Implanted Mri Isp W/8fr Cath Powerport - [id number] Catheter - Right: BARD PERIP 12/26/2017 [id number] / Implanted: Qty: 1 on 12/04/2016 by Kota Vences MD Implant Subclavian / [id number] Cath 90cm Peritoneal Open End W/Wall Slits - [id number] Catheter - N/A: Abdomen MEDTRO SHAGGY [id number] / Implanted: Qty: 1 on 01/24/2017 by Inder Guillen MD Implant / Sealant 10ml Floseal Matrix Hemostatic W/Ndl-Free Adapter - [id number] N/A: Abdomen TOBAR BIO 03/20/2018 [id number] / Implanted: Qty: 2 on 01/24/2017 by Inder Guillen MD / [id number] as of this encounter Insurance Payer Benefit Plan / Group Subscriber ID Type Phone Address HUMANA MANAGED MEDICARE [employer] GOLD PLUS [facility] [id number] HCAP/JESSICA 80% JESSICA [id number] as of this encounter
--- OUTSIDE RECORDS SUMMARY | 2018-05-19 09:07 | XMS RPT_ITS | Summary of Care ---
:1940 Author Organization [facility] Address [address] [place] [address] Phone Care Team Providers Name Role Phone Jus Allison MD Primary Care Provider Sherif Valles MD Unavailable Varsha Pineda ECOLOGICAL RISK ASSESSOR Unavailable Fran Burris MD Unavailable Inder Guillen MD Unavailable Reason for Visit Reason Comments malignant neoplasm of head of pancreas Encounter Details Date Type Department Care Team Description 01/04/2017 Office Visit [facility] Sherif Valles MD Chemotherapy Center Oncology [address] [facility] follow-up examination Clinic [address] (Primary [address] [place] [address] Dx);[place] [address] neoplasm of head of [phone] pancreas (HCC) Allergies Active Allergy Reactions Severity Noted Date [...] abdominal mg total) by pain mouth daily. methylPREDNISolone Reasons: PT 12/13/2016 Active (MEDROL DOSEPACK) [...] Vital Sign Reading Time Taken Blood Pressure 141/60 01/04/2017 11:08 AM EST Pulse 92 01/04/2017 11:08 AM EST Temperature 36.4 ??C (97.6 ??F) 01/04/2017 11:08 AM EST Respiratory Rate - - Oxygen Saturation - - Inhaled Oxygen Concentration - - Weight 74.2 kg (163 lb 9.3 oz) 01/04/2017 11:08 AM EST Height - - Body Mass Index 24.87 01/04/2017 11:08 AM EST in this encounter Progress Notes Sherif Valles MD - 01/04/2017 11:20 AM ESTFormatting of this note may be different from the original. [facility] [address] [place] [address] [phone] Hematology and Oncology Progress Note Patient Name: Elbert Canales MR #: [id number] : TYREL@ [facility] #: [id number] Date of Service: 01/04/17 Clinician: Sherif Valles MD Diagnosis: Pancreatic cancer, stage IB (T2N0M0), head and uncinate process, 2.1 cm, Dx-10/31/2016. Treatment: Neoadjuvant chemotherapy with Gemzar and Abraxane (d1,8,12k27gnnz) started 11/16/16. Chief Complaint: Follow up, pancreatic [...] Colonic diverticulosis without evidence of diverticulitis. 7. Wimc-hq-imhhrmol constipation. 8. Moderate prostatomegaly. MRI Abdomen on [...] on 10/31/2016, by Dr. Partha Muñoz at [place] which showed a mass in thepancreatic head [...] 19-9 at 345. He was admitted at [facility] on 12/09/2016, with 1 day of increased [...] discharged yesterday. He was again discharged from [facility] on 12/18/2016. He was admitted on 12/15 [...] hypoenhancement in the inferior right hepatic lobe. For further evaluation, he has ordered MRI abdomen to evaluate the liver lesions. CBC done today showed normal WBC, improved hemoglobin at 13, and normal platelet. CMP panel showed normal liver function and creatinine. CA19-9 level is pending. He is here for followup evaluation. His cellulitis is markedly improved in the right lower extremity and he has completed a Medrol pack dose on this Sunday. His erythema is much better with residual edema in the right ankle area. Denies fever, chills, nausea, vomiting, diarrhea, shortness of breath, or cough. Assessment/Plan: Pancreatic cancer (adenocarcinoma), involving pancreatic head and uncinate process, 2.1 cm, stage 1B(T2-N0-M0), borderline resectable, with involvement of lateral wall of portal vein. Baseline CA19-9 level elevated at 354. He was evaluated by Dr. Guillen and recommended to have neoadjuvant chemotherapy, with gemcitabine and Abraxane. Neoadjuvant chemotherapy with gemcitabine plus Abraxane (D1,8,15q 28 days), was started from 11/16/16. We will initially plan 3 cycles of chemotherapy and then re-stage, and depending on the response, he may plan chemoradiation and refer for surgical resection as per Dr. Guillen. He had drug reaction with itching, rash, and minimal low-grade fever likely sec to zofran which was changed to Decadron 12 mg IV pre-chemo and then day 2 and 3 Decadron of 8 mg twice a day for delayed nausea. He is s/p cycle 1, d15 of chemo on 12/07/16. Since his treatment with gemcitabine and Abraxane he has developed what was initially thought to be cellulitis secondary to infection, but now thought to be pseudo-cellulitis secondary to gemcitabine, so far [facility] and patient was treated on multiple courses of antibiotics. There is no evidence of DVT. After discontinuing further treatment with gemcitabine and Medrol Dosepak, he is eating well and erythema is markedly improved now. He is further being evaluated now for Whipple procedure with by Dr. Guillen, and pending MRI evaluation. I will schedule him after possible surgical procedure in about 6 weeks with a repeat CBC, CMP, and CA-19-9 level. I have talked to Dr. Guillen over the phone today and he confirmed the plan. If for any reason he does not undergo the surgical procedure due to metastatic disease and/or unresectability determination after the MRI, we will plan for alternative treatment, not including gemcitabine. He voiced understanding with the above discussion. I have also advised him to continue using the hydrocortisone cream on the foot for residual erythema. Advised him to elevate his legs also. He and his voiced understanding with the above plan. Review of Systems: 12 point review of [...] Extremity: no clubbing, no cyanosis. RLE edema, erythema, markedly improved Skin: RLE erythema Neuro: alert, oriented, no focal deficits, speech normal. Psych: Pt has a normal mood and affect. Vital Signs: BP 141/60 Pulse 92 Temp 97.6 ??F (36.4 ??C) (Temporal) Wt 74.2 kg (163 lb 9.3 oz) BMI 24.87kg/m2 Last Height and Weight with BMI: 74.2 kg (163 lb 9.3 oz) Body mass index is 24.87 kg/(m^2). PMH/PSH/FH/SH: Past Medical History: Diagnosis Date ??? Arthritis ??? BPH (benign prostatic hyperplasia) ??? Cancer (HCC) skin cancer ??? Cataract ??? Chemotherapy adverse reaction 12/01/2016 has had 2 treatments-- getting port now. Had adverse reaction to zofran after first treatment ??? Chronic diarrhea current problem (07/21/16), stool specimen positive for blood ([facility]) per pt ??? Colon polyps 2010 benign [...] MD; Location: [facility] Main OR; Service: ??? COLONOSCOPY 2009 benign polyps found ??? COLONOSCOPY N/A 07/27/2016 Procedure: COLONOSCOPY; Surgeon: Kota Vences MD; Location: [facility] Endo; Service: ??? PROSTATE BIOPSY ??? SINUS [...] Inhale 2.5 L/min nightly. Historical Provider, pancrelipase, Fll-Pctu-Raer, (CREON) 12,000-38,000 -60,000 unit CpDR capsule Take 1 (one) capsule (12,000 units of lipase total) by mouth 3 (three) times a day with meals. 08/07/16 08/07/17 Jus Allison MD LABS: Pertinent latest labs reviewed in EMR and discussed with patient. WBC Date Value Ref Range Status 01/04/2017 10.10 4.50 - 11.00 K/mcL Final 07/07/2014 5.35 4.50 - 11.00 K/MCL RBC Date Value Ref Range Status 01/04/2017 4.08 (L) 4.50 - 5.90 M/mcL Final 07/07/2014 4.73 4.50 - 5.90 M/MCL Hemoglobin Date Value Ref Range Status 01/04/2017 13.0 (L) 13.5 - 17.5 g/dL Final 07/07/2014 15.3 13.5 - 17.5 G/DL Hematocrit Date Value Ref Range Status 01/04/2017 38.4 (L) 41.0 - 53.0 % Final 07/07/2014 45.2 41.0 - 53.0 % MCV Date Value Ref Range Status 01/04/2017 94.1 80.0 - 100.0 fL Final 07/07/2014 95.6 80.0 - 100.0 FL MCH Date Value Ref Range Status 01/04/2017 31.9 26.0 - 34.0 pg Final 07/07/2014 32.3 26.0 - 34.0 PG MCHC Date Value Ref Range Status 01/04/2017 33.9 31.0 - 37.0 g/dL Final Platelets Date Value Ref Range Status 01/04/2017 285 150 - 400 K/mcL Final RDW Date Value Ref Range Status 07/07/2014 12.5 11.6 - 14.8 % RDW - CV Date Value Ref Range Status 01/04/2017 14.4 11.6 - 14.8 % Final Sodium Date Value Ref Range Status 01/04/2017 133 (L) 135 - 145 mmol/L Final 07/07/2014 136 135 - 145 MMOL/L Potassium Date Value Ref Range Status 01/04/2017 4.2 3.5 - 5.1 mmol/L Final 07/07/2014 4.4 3.5 - 5.1 MMOL/L Chloride Date Value Ref Range Status 01/04/2017 96 (L) 98 - 108 mmol/L Final 07/07/2014 98 98 - 108 MMOL/L Bicarbonate Date Value Ref Range Status 01/04/2017 26 21 - 32 mmol/L Final 07/07/2014 28 21 - 32 MMOL/L Anion Gap Date Value Ref Range Status 01/04/2017 15 10 - 20 mmol/L Final Glucose Date Value Ref Range Status 01/04/2017 137 (H) 65 - 99 mg/dL Final 07/07/2014 94 65 - 99 MG/DL BUN Date Value Ref Range Status 01/04/2017 11 8 - 25 mg/dL Final 07/07/2014 12 8 - 25 MG/DL Creatinine Date Value Ref Range Status 01/04/2017 0.66 (L) 0.80 - 1.30 mg/dL Final 10/05/2016 0.7 (L) 0.8 - 1.3 mg/dL Final Serum Creatinine Date Value Ref Range Status 01/11/2012 0.9 0.8 - 1.3 MG/DL eGFR Date Value Ref Range Status 01/04/2017 95 >=60 mL/min/1.73 m2 Final GFR, Non Date Value Ref Range Status 01/11/2012 >60 >60 Comment: Test Units:mL/min/1.73m2 This Calculation is for Non Patients BUN/Creatinine Ratio Date Value Ref Range Status 01/04/2017 16.7 10.0 - 20.0 Final BUN/Creat Ratio Date Value Ref Range Status 07/07/2014 15.0 10.0 - 20.0 Comment: The above 18 analytes were performed by [address],[place] [address] Ordered on: 07/07/2014, EMMA ALLISON Tests Performed at: [facility] (Unless Otherwise Specified) [address] [place] [address], [address] - [facility] #[id number] [facility] - Order ID:[id number] Sample ID:[id number] Total Protein Date Value Ref Range Status 01/04/2017 6.7 6.0 - 8.0 g/dL Final Albumin Date Value Ref Range Status 01/04/2017 3.8 3.2 - 5.2 g/dL Final Calcium Date Value Ref Range Status 01/04/2017 8.9 8.4 - 10.2 mg/dL Final 07/07/2014 10.0 8.4 - 10.2 MG/DL Alkaline Phosphatase Date Value Ref Range Status 01/04/2017 73 40 - 150 U/L Final AST Date Value Ref Range Status 01/04/2017 15 0 - 45 U/L Final ALT Date Value Ref Range Status 01/04/2017 13 0 - 40 U/L Final Total Bilirubin Date Value Ref Range Status 01/04/2017 0.6 0.0 - 1.3 mg/dL Final Diagnostic Tests: Pertinent available radiologic studies were reviewed. Follow Up: Return in about 6 weeks (around 02/14/2017) for Office Visit, Labs - See Treatment Plan. No orders of the defined types were placed in this encounter. ? Sherif Valles MD [facility] [address] [facility], [address] [place] [address] [phone] CC: MD Inder Fink MD in this encounter Plan of Treatment Upcoming Encounters Date Type Specialty Care Team Description 01/10/2017 Appointment Radiology Codi Kimble, [place] [facility] [employer]ER [address] [place] [address] [phone] 01/23/2017 Hospital Encounter Transfer Center 01/23/2017 Hospital Encounter Inder Guillen MD [address] [place] [address] [phone] 01/24/2017 Surgery Inder Guillen MD WHIPPLE PROCEDURE [address] [place] [address] [phone] 02/15/2017 Office Visit Oncology Sherif Valles MD [address] [facility] [address] [place] [address] [phone] Health Maintenance Due Date Last Done Comments TETANUS EVERY 10 YR 1940 ZOSTER VACCINE 2001 PNEUMOCOCCAL VACCINE AGE 65+ (1 of 2 - 2006 PCV13) SEQUENTIAL INFLUENZA VACCINE (#1) 2016 Low-dose CT Lung Cancer Screen 01/03/2018 01/03/2017, 10/16/2016 COLONOSCOPY 07/27/2021 07/27/2016, 01/12/2010 as of this encounter Implants Implanted Type Area Audit Intern Device Expiration Model / Identifier Date Serial / Lot Port Implanted Mri Isp W/8fr Cath Powerport - [id number] Catheter - Right: BARD PERIP 12/26/2017 [id number] / Implanted: Qty: 1 on 12/04/2016 by Kota Vences MD Implant Subclavian / [id number] as of this encounter Visit Diagnoses Diagnosis Chemotherapy follow-up examination - Primary Malignant neoplasm of head of pancreas (HCC) Malignant neoplasm of head of pancreas in this encounter Insurance Payer Benefit Plan / Group Subscriber ID Type Phone Address HUMANA MANAGED MEDICARE [employer] [facility] GOLD PLUS O [id number] HCAP/JESSICA 80% JESSICA [id number] [phone] [place] [address] as of this encounter
--- OUTSIDE RECORDS SUMMARY | 2018-05-19 09:07 | XMS RPT_ITS | Summary of Care ---
:1940 Author Organization [facility] Address [address] [place] [address] Phone Care Team Providers Name Role Phone Jus Allison MD Primary Care Provider Sherif Valles MD Unavailable Varsha Pineda CNP Unavailable Fran Burris MD Unavailable Inder Guillen MD Unavailable Reason for Referral MRI/CAT/PET Scan (Routine) Status Reason Specialty Diagnoses / Procedures Referred By Contact Referred To Contact Closed Radiology Diagnoses Malignant neoplasm of head of pancreas (HCC) Inder Guillen MD Procedures CT Chest Abdomen Pelvis With IV Contrast Only [address] [place] [address] MRI/CAT/PET Scan (Routine) Status Reason Specialty Diagnoses / Procedures Referred By Contact Referred To Contact Closed Radiology Diagnoses Malignant neoplasm of head of pancreas (HCC) Inder Guillen MD Procedures CT Chest Abdomen Pelvis With IV Contrast Only [address] [place] [address] Reason for Visit MRI/CAT/PET Scan (Routine) Status Reason Specialty Diagnoses / Procedures Referred By Contact Referred To Contact Closed Radiology Diagnoses Malignant neoplasm of head of pancreas (HCC) Inder Guillen MD Procedures CT Chest Abdomen Pelvis With IV Contrast Only [address] [place] [address] Encounter Details Date Type Department Care Team Description 01/03/2017 Hospital Encounter [facility] Inder Guillen, Malignant neoplasm Hospital CT Scan of head of pancreas [address] [place] [address] ([facility]) Avenue [address] [address] [place], [place] [phone] Allergies Active Allergy Reactions Severity Noted Date [...] Encounters Date Type Specialty Care Team Description 01/04/2017 Nurse Only Infusion Therapy Sherif Valles MD [address] [address] [phone] 01/04/2017 Office Visit Oncology Sherif Valles MD [address] [address] 01/04/2017 Infusion/Injection Infusion Therapy Sherif Valles MD [address] [address] [phone] 01/23/2017 Hospital Encounter Transfer Center 01/23/2017 Hospital Encounter Inder Guillen MD [address] [place] [address] [phone] 01/24/2017 Surgery Inder [facility]ill[facility] [address] [place] [address] [phone] Health Maintenance Due Date Last Done Comments TETANUS EVERY 10 YR 1940 ZOSTER VACCINE 2001 PNEUMOCOCCAL VACCINE AGE 65+ (1 of 2 - 2006 PCV13) SEQUENTIAL INFLUENZA VACCINE (#1) 2016 Low-dose CT Lung Cancer Screen 10/16/2017 10/16/2016 COLONOSCOPY 07/27/2021 07/27/2016, 01/12/2010 as of this encounter Implants Implanted Type Area Discount Clerk Device Expiration Model / Identifier Date Serial / Lot Port Implanted Mri Isp W/8fr Cath Powerport - [id number] Catheter - Right: BARD PERIP 12/26/2017 [id number] / Implanted: Qty: 1 on 12/04/2016 by Kota Vences MD Implant Subclavian / [id number] as of this encounter Results CT Chest Abdomen Pelvis With IV Contrast Only (01/03/2017 2:26 PM) Specimen Performing Laboratory [facility] Impressions 1. No evidence of metastatic disease in the chest.?Jhjplofs-yc-verjsy pulmonary emphysema. 2. Lobulated hypoenhancing mass in the medial aspect of the pancreatic head compatible with known adenocarcinoma.?This lesion has probably mildly enlarged since August 2016.?Obstruction of the main pancreatic duct with resultant atrophy of the body and tail have also mildly increased since that time.?The medial margin of the mass is adjacent to the portal confluence, but there is no definite evidence of major vascular invasion.?A small indeterminate lymph node adjacent to the common hepatic artery appears unchanged. 3. Tiny hepatic cysts.?There is a questionable subtle focus of new hypoenhancement in the inferior right hepatic lobe which may represent heterogeneous parenchymal perfusion or artifact, but is not definitive.?Consider repeat MRI to exclude a developing lesion at this site. 4. Atherosclerosis including prominent coronary artery calcification.?There is also mild aneurysmal dilatation of the abdominal aorta. 5. Prostatic enlargement. 6. Diffuse thyroid enlargement and a nonspecific left thyroid nodule.?If not previously evaluated, consider thyroid ultrasound. S/Cubiez Workstation ID:? [id number] Narrative EXAMINATION: CT CHEST ABDOMEN PELVIS WITH IV CONTRAST ONLY HISTORY: ORDERING SYSTEM PROVIDED HISTORY:?pancreatic cancer, rule out mets, TECHNOLOGIST PROVIDED HISTORY: Reason for exam: pancreatic cancer, rule out mets Illness/Other Encounter Type: Subsequent/Follow-up Additional signs and symptoms: no ORDERING SYSTEM PROVIDED DIAGNOSIS CODES: C25.0 Malignant neoplasm of head of pancreas (HCC) Pancreatic cancer.?Evaluate for metastases. COMPARISON: CT of the chest 10/16/2016.?CT of the abdomen and pelvis 09/11/2016.?MRI of the abdomen 10/05/2016. TECHNIQUE: Dose reduction techniques were achieved by using automated exposure control and/or adjustment of mA and/or kV according to patient size and/or use of iterative reconstruction technique. Helical CT of the chest, abdomen and pelvis was performed using 100 mL Isovue-370 IV. FINDINGS: CHEST:?There is a jkttcjev-jz-feouhp pulmonary emphysema with bullous disease in the upper lung zones.?There is mild bronchial wall thickening suggesting chronic bronchitis.?No suspicious pulmonary nodules are seen.?There is no evidence of pleural or pericardial effusion.?No bulky thoracic adenopathy is seen.?There are a few small mediastinal and hilar lymph nodes which do not appear significantly changed and do not meet criteria for enlargement.?Coronary artery calcification is prominent especially in the LAD distribution.?There is moderate atherosclerosis of the aorta and there is smooth broad-based mild dilatation of the distal aortic arch suggesting a Ductus bump ?There is diffuse enlargement of the thyroid with a left-sided nodule measuring up to 1.8 cm on image 7.?Ported right subclavian line has its tip in the superior vena cava. ABDOMEN:?There is probably mild fatty infiltration of the liver.?A small well-defined hypodense lesion in the anterior liver dome was compatible with a cyst on MRI and appears unchanged, measuring 7 mm on series 2, image 73.?Another tiny cyst was previously demonstrated in the inferior right hepatic lobe, and this is faintly appreciated on series 2, image 98.?Immediately adjacent to this there is subtle ill-defined hypoenhancement, which was not definitely visible on prior CT or MRI.?This measures up to 9 mm in diameter on series 2, image 97 and is also suggested on coronal image 50.?This is indeterminate.?The spleen is normal in size.?The gallbladder is mostly collapsed, accentuating the wall.?The adrenal glands and kidneys demonstrate no suspicious focal lesions.?Renal cysts are noted.?The pancreas again demonstrates a hypoenhancing lobulated mass involving the medial aspect of the pancreatic head.?This causes obstruction of the main pancreatic duct with atrophy of the body and tail.?The mass measures 2.8 x 1.7 cm on series 2, image 92.?This has probably increased in size since the comparison CT on which it was less well-defined but measured approximately 2.0 x 1.5 cm.?Pancreatic ductal dilatation and atrophy of the more distal pancreas have also increased since the prior CT.?The medial margin of the mass is immediately adjacent to the portal confluence, without definite invasion.?There is a preserved fat plane around the superior mesenteric artery.?There are a few subcentimeter collins hepatis lymph nodes which are nonspecific.?Again demonstrated is a small lymph node immediately adjacent to the common hepatic artery as seen on series 2, image 83 measuring 6 mm (7 mm on the prior MRI, probably not significantly changed).?There are tiny retroperitoneal lymph nodes which do not meet criteria for enlargement.?There is threloqt-au-zqdgsd left-sided colonic diverticulosis. PELVIS:?The prostate is moderately to severely enlarged.?The urinary bladder is mildly distended and otherwise unremarkable.?There is no evidence of bulky pelvic adenopathy or significant free pelvic fluid.?There is moderate atherosclerosis of the abdominal aorta and there is minimal aneurysmal dilatation of the infrarenal abdominal aorta measuring up to 2.3 cm.?Bone windows demonstrate no suspicious focal osseous lesions. Procedure Note Interface, Rad In Leroy Cooperq - 01/03/2017 8:28 PM EST EXAMINATION: CT CHEST ABDOMEN PELVIS WITH IV CONTRAST ONLY HISTORY: ORDERING SYSTEM PROVIDED HISTORY: pancreatic cancer, rule out mets, TECHNOLOGIST PROVIDED HISTORY: Reason for exam: pancreatic cancer, rule out mets Illness/Other Encounter Type: Subsequent/Follow-up Additional signs and symptoms: no ORDERING SYSTEM PROVIDED DIAGNOSIS CODES: C25.0 Malignant neoplasm of head of pancreas (HCC) Pancreatic cancer. Evaluate for metastases. COMPARISON: CT of the chest 10/16/2016. CT of the abdomen and pelvis 09/11/2016. MRI of the abdomen 10/05/2016. TECHNIQUE: Dose reduction techniques were achieved by using automated exposure control and/or adjustment of mA and/or kV according to patient size and/or use of iterative reconstruction technique. Helical CT of the chest, abdomen and pelvis was performed using 100 mL Isovue-370 IV. FINDINGS: CHEST: There is a kfbfdaza-hz-lirqeo pulmonary emphysema with bullous disease in the upper lung zones. There is mild bronchial wall thickening suggesting chronic bronchitis. No suspicious pulmonary nodules are seen. There is no evidence of pleural or pericardial effusion. No bulky thoracic adenopathy is seen. There are a few small mediastinal and hilar lymph nodes which do not appear significantly changed and do not meet criteria for enlargement. Coronary artery calcification is prominent especially in the LAD distribution. There is moderate atherosclerosis of the aorta and there is smooth broad-based mild dilatation of the distal aortic arch suggesting a Ductus bump There is diffuse enlargement of the thyroid with a left-sided nodule measuring up to 1.8 cm on image 7. Ported right subclavian line has its tip in the superior vena cava. ABDOMEN: There is probably mild fatty infiltration of the liver. A small well- defined hypodense lesion in the anterior liver dome was compatible with a cyst on MRI and appears unchanged, measuring 7 mm on series 2, image 73. Another tiny cyst was previously demonstrated in the inferior right hepatic lobe, and this is faintly appreciated on series 2, image 98. Immediately adjacent to this there is subtle ill-defined hypoenhancement, which was not definitely visible on prior CT or MRI. This measures up to 9 mm in diameter on series 2, image 97 and is also suggested on coronal image 50. This is indeterminate. The spleen is normal in size. The gallbladder is mostly collapsed, accentuating the wall. The adrenal glands and kidneys demonstrate no suspicious focal lesions. Renal cysts are noted. The pancreas again demonstrates a hypoenhancing lobulated mass involving the medial aspect of the pancreatic head. This causes obstruction of the main pancreatic duct with atrophy of the body and tail. The mass measures 2.8 x 1.7 cm on series 2, image 92. This has probably increased in size since the comparison CT on which it was less well-defined but measured approximately 2.0 x 1.5 cm. Pancreatic ductal dilatation and atrophy of the more distal pancreas have also increased since the prior CT. The medial margin of the mass is immediately adjacent to the portal confluence, without definite invasion. There is a preserved fat plane around the superior mesenteric artery. There are a few subcentimeter collins hepatis lymph nodes which are nonspecific. Again demonstrated is a small lymph node immediately adjacent to the common hepatic artery as seen on series 2, image 83 measuring 6 mm (7 mm on the prior MRI, probably not significantly changed). There are tiny retroperitoneal lymph nodes which do not meet criteria for enlargement. There is ulfubvaj-ec-xemfob left-sided colonic diverticulosis. PELVIS: The prostate is moderately to severely enlarged. The urinary bladder is mildly distended and otherwise unremarkable. There is no evidence of bulky pelvic adenopathy or significant free pelvic fluid. There is moderate atherosclerosis of the abdominal aorta and there is minimal aneurysmal dilatation of the infrarenal abdominal aorta measuring up to 2.3 cm. Bone windows demonstrate no suspicious focal osseous lesions. IMPRESSION: 1. No evidence of metastatic disease in the chest. Gmxhwmsh-cd-urutbb pulmonary emphysema. 2. Lobulated hypoenhancing mass in the medial aspect of the pancreatic head compatible with known adenocarcinoma. This lesion has probably mildly enlarged since August 2016. Obstruction of the main pancreatic duct with resultant atrophy of the body and tail have also mildly increased since that time. The medial margin of the mass is adjacent to the portal confluence, but there is no definite evidence of major vascular invasion. A small indeterminate lymph node adjacent to the common hepatic artery appears unchanged. 3. Tiny hepatic cysts. There is a questionable subtle focus of new hypoenhancement in the inferior right hepatic lobe which may represent heterogeneous parenchymal perfusion or artifact, but is not definitive. Consider repeat MRI to exclude a developing lesion at this site. 4. Atherosclerosis including prominent coronary artery calcification. There is also mild aneurysmal dilatation of the abdominal aorta. 5. Prostatic enlargement. 6. Diffuse thyroid enlargement and a nonspecific left thyroid nodule. If not previously evaluated, consider thyroid ultrasound. CHRISS/kwasi Workstation ID: [id number] in this encounter Visit Diagnoses Diagnosis Malignant neoplasm of head of pancreas (HCC) Malignant neoplasm of head of pancreas in this encounter Administered Medications Inactive Administered Medications - up to 3 most recent administrations Medication Order MAR Action Action Date Dose Rate Site iopamidol (ISOVUE-370) 76 Contrast Administered 01/03/2017 13:49 EST 100 mL % injection 100 mL 100 mL, Intravenous, Once in imaging, contrast, Starting 01/03/17 at 1345, For 1 dose in this encounter Insurance Payer Benefit Plan / Group Subscriber ID Type Phone Address HUMANA MANAGED MEDICARE HUMANA MCR GOLD PLUS [facility] [id number] HCAP/JESSICA 80% JESSICA [id number] [phone] [place] [id number] as of this encounter
--- OUTSIDE RECORDS SUMMARY | 2018-05-19 09:07 | XMS RPT_ITS | Summary of Care ---
:1940 Author Organization [facility] Address [address] [place] [address] Phone Care Team Providers Name Role Phone Jus Allison MD Primary Care Provider Sherif Valles MD Unavailable Varsha Pineda YARDING SUPERVISOR Unavailable Fran Burris MD Unavailable Inder Guillen MD Unavailable Reason for Visit MRI/CAT/PET Scan (Routine) Status Reason Specialty Diagnoses / Referred By Referred To Procedures Contact Contact Pending Review Radiology Diagnoses Malignant neoplasm of head of pancreas (HCC) Liver cyst Codi Kimble, DIRECTOR OUTPATIENT SERVICES Procedures MR Abdomen With And Without Contrast MR Abdomen With Contrast [address] [address] Encounter Details Date Type Department Care Team Description 01/10/2017 Hospital Encounter [facility] Codi Kimble, Malignant neoplasm Hospital MRI DIRECTOR OUTPATIENT SERVICES of head of pancreas [address] (HCC);Liver cyst [address] [address] [place], [place] [phone] [address] [phone] Allergies Active Allergy Reactions Severity Noted Date [...] Weight 74.2 kg (163 lb 9.3 oz) 01/10/2017 9:48 AM EST Height 172.7 cm (5' 8) 01/10/2017 9:48 AM EST Body Mass Index 24.87 01/10/2017 9:48 AM EST in this encounter Plan of Treatment Upcoming Encounters Date Type Specialty Care Team Description 01/23/2017 Hospital Encounter Transfer Center 01/23/2017 Hospital Encounter Inder Guillen MD [address] [place] [address] [phone] 01/24/2017 Surgery Inder Guillen MD [facility] PROCEDURE [address] [place] [address] [phone] 02/15/2017 Office Visit Oncology Sherif Valles MD [address] [place] [address] [address] [place] [address] [phone] Health Maintenance Due Date Last Done Comments TETANUS EVERY 10 YR 1940 ZOSTER VACCINE 2001 PNEUMOCOCCAL VACCINE AGE 65+ (1 of 2 - 2006 PCV13) SEQUENTIAL INFLUENZA VACCINE (#1) 2016 Low-dose CT Lung Cancer Screen 01/03/2018 01/03/2017, 10/16/2016 COLONOSCOPY 07/27/2021 07/27/2016, 01/12/2010 as of this encounter Implants Implanted Type Area [facility] Social Worker Device Expiration Model / Identifier Date Serial / Lot Port Implanted Mri Isp W/8fr Cath Powerport - [id number] Catheter - Right: BARD PERIP 12/26/2017 [id number] / Implanted: Qty: 1 on 12/04/2016 by Kota Vences MD Implant Subclavian / [id number] as of this encounter Results MR Abdomen With And Without Contrast (01/10/2017 10:35 AM) Specimen Performing Laboratory [employer] [facility] Impressions 1. Again there is no evidence of metastatic disease within the liver.?The tiny lesions identified corresponds to tiny benign cysts. 2. Poorly visualized irregular-shaped mass involving the pancreatic head/uncinate process measuring up to 2.1 cm not significantly changed since the prior exam corresponding to the patient's known adenocarcinoma.?The mass is again obstructing the pancreatic duct with some upstream dilatation with no interval change.?The mass is better assessed oand described on prior non-Eovist MRI exam of 10/05/2016 and reference to that dictation for details is recommended. 3. Some mild peripancreatic adenopathy present measuring 2.1 x 1.3 cm in largest diameter. 4. Tiny left inferior renal pole cyst redemonstrated.?No other interval change. Bocandy/Ziliko Workstation ID:? [id number] Narrative EXAMINATION: MRI OF THE ABDOMEN WITHOUT AND WITH CONTRAST HISTORY: Dx: C25.0 (Malignant neoplasm of head of pancreas (HCC)) Reason for exam?:eval liver cyst vs infarct vs pancreatic mets Injury/Trauma or Illness?:Illness/Other with EOVIST constrast; eval liver cyst vs infarct vs pancreatic mets COMPARISON: MRI of the abdomen without and with contrast, 10/05/2016. TECHNIQUE: Coronal fat-saturated T2 FIESTA, coronal and axial T1 ssFSE, axial in- and out-of phase T1 FSPGR, axial fat saturated T2 FRFSE, axial eDWI/ADC and Pre and post dynamic axial T1 LAVA-Flex water phase imaging with 20-second, 70-second, 2-minute, 5-minute and 20 minutes delay.?Pre- from post-enhanced subtraction images performed.?A total of 7.4 mL of intravenous Eovist was used for the enhanced portion of the exam. FINDINGS: Some motion especially during early arterial phase which can be common with the use of IV Eovist obscures some details.?Poorly visualized mass within the pancreatic head/uncinate process measuring 2.1 x 1.7 cm redemonstrated with no interval change and better assessed on the prior MRI of 10/05/2016.?Please refer to that report for details.?Associated mild atrophy of the pancreatic body and tail with pancreatic ductal dilatation to the level of the mass also redemonstrated with no interval change.?Peripancreatic adenopathy measuring 2.1 x 1.3 cm.?A few tiny scattered hepatic cysts redemonstrated.?Again there is no metastatic disease identified within the liver.?No intra- or extrahepatic biliary ductal dilatation identified.?Gallbladder is unremarkable.?Small cyst in the left inferior renal pole measuring 8 mm redemonstrated.?No other interval change identified. Procedure Note Interface, Rad In Leroy Cooperq - 01/10/2017 5:24 PM EST EXAMINATION: MRI OF THE ABDOMEN WITHOUT AND WITH CONTRAST HISTORY: Dx: C25.0 (Malignant neoplasm of head of pancreas (HCC)) Reason for exam?:eval liver cyst vs infarct vs pancreatic mets Injury/Trauma or Illness?:Illness/Other with EOVIST constrast; eval liver cyst vs infarct vs pancreatic mets COMPARISON: MRI of the abdomen without and with contrast, 10/05/2016. TECHNIQUE: Coronal fat-saturated T2 FIESTA, coronal and axial T1 ssFSE, axial in- and out-of phase T1 FSPGR, axial fat saturated T2 FRFSE, axial eDWI/ADC and Pre and post dynamic axial T1 LAVA-Flex water phase imaging with 20-second, 70-second, 2-minute, 5-minute and 20 minutes delay. Pre- from post-enhanced subtraction images performed. A total of 7.4 mL of intravenous Eovist was used for the enhanced portion of the exam. FINDINGS: Some motion especially during early arterial phase which can be common with the use of IV Eovist obscures some details. Poorly visualized mass within the pancreatic head/uncinate process measuring 2.1 x 1.7 cm redemonstrated with no interval change and better assessed on the prior MRI of 10/05/2016. Please refer to that report for details. Associated mild atrophy of the pancreatic body and tail with pancreatic ductal dilatation to the level of the mass also redemonstrated with no interval change. Peripancreatic adenopathy measuring 2.1 x 1.3 cm. A few tiny scattered hepatic cysts redemonstrated. Again there is no metastatic disease identified within the liver. No intra- or extrahepatic biliary ductal dilatation identified. Gallbladder is unremarkable. Small cyst in the left inferior renal pole measuring 8 mm redemonstrated. No other interval change identified. IMPRESSION: 1. Again there is no evidence of metastatic disease within the liver. The tiny lesions identified corresponds to tiny benign cysts. 2. Poorly visualized irregular-shaped mass involving the pancreatic head/uncinate process measuring up to 2.1 cm not significantly changed since the prior exam corresponding to the patient's known adenocarcinoma. The mass is again obstructing the pancreatic duct with some upstream dilatation with no interval change. The mass is better assessed oand described on prior non-Eovist MRI exam of 10/05/2016 and reference to that dictation for details is recommended. 3. Some mild peripancreatic adenopathy present measuring 2.1 x 1.3 cm in largest diameter. 4. Tiny left inferior renal pole cyst redemonstrated. No other interval change. GJT/bd Workstation ID: [id number] in this encounter Visit Diagnoses Diagnosis Malignant neoplasm of head of pancreas (HCC) Malignant neoplasm of head of pancreas Liver cyst Other specified disorders of liver in this encounter Administered Medications Inactive Administered Medications - up to 3 most recent administrations Medication Order MAR Action Action Date Dose Rate Site gadoxetate (EOVIST) Contrast Administered 01/10/2017 10:31 EST 7.4 mL injection 7.4 mL 7.4 mL (rounded from 7.42 mL = 0.1 mL/kg ? 74.2 kg), Intravenous, Once in imaging, contrast, Starting Sun01/10/17 at 1001, For 1 dose in this encounter Insurance Payer Benefit Plan / Group Subscriber ID Type Phone Address HUMANA MANAGED MEDICARE HUMANA MCR GOLD PLUS [facility] [id number] [facility]/JESSICA 80% JESSICA [id number] Home: [address] [place], [place] [phone] [place] [id number] as of this encounter
--- OUTSIDE RECORDS SUMMARY | 2018-05-19 09:07 | XMS RPT_ITS | Summary of Care ---
:1940 Author Organization [facility] Address [address] [place] [address] Phone Care Team Providers Name Role Phone Jus Allison MD Primary Care Provider Sherif Valles MD Unavailable Varsha Pineda DEV MANAGER Unavailable Fran Burris MD Unavailable Inder Guillen MD Unavailable Encounter Details Date Type Department Care Team Description 12/29/2016 Hospital Encounter [facility] Allergies Active Allergy Reactions Severity Noted Date [...] encounter Miscellaneous Notes Transfer Center Note - Justina Sesay RN - 12/29/2016 10:19 AM EDTNarrative: Information faxed to the office by Cyrus [phone]. Call the patient in at [phone] in this encounter Plan of Treatment Upcoming Encounters Date Type Specialty Care Team Description 01/23/2017 Hospital Encounter Transfer Center 01/23/2017 Hospital Encounter Inder Guillen MD [address] [facility] [address] [place] [address] [phone] 01/24/2017 Surgery Inder Guillen MD WHIPPLE PROCEDURE [address] [facility] [address] [place] [address] [phone] 02/15/2017 Office Visit Oncology Sherif Valles MD [address] [facility] [address] [place] [address] [phone] Health Maintenance Due Date Last Done Comments TETANUS EVERY 10 YR 1940 ZOSTER VACCINE 2001 PNEUMOCOCCAL VACCINE AGE 65+ (1 of 2 - 2006 PCV13) SEQUENTIAL INFLUENZA VACCINE (#1) 2016 Low-dose CT Lung Cancer Screen 01/03/2018 01/03/2017, 10/16/2016 COLONOSCOPY 07/27/2021 07/27/2016, 01/12/2010 as of this encounter Implants Implanted Type Area Quality Assistant Device Expiration Model / Identifier Date Serial / Lot Port Implanted Mri Isp W/8fr Cath Powerport - [id number] Catheter - Right: BARD PERIP 12/26/2017 [id number] / Implanted: Qty: 1 on 12/04/2016 by Kota Vences MD Implant Subclavian / [id number] as of this encounter Insurance Payer Benefit Plan / Group Subscriber ID Type Phone Address HUMANA MANAGED MEDICARE HUMANA [facility] GOLD PLUS O [id number] HCAP/JESSICA 80% JESSICA [id number] as of this encounter
--- OUTSIDE RECORDS SUMMARY | 2018-05-19 09:07 | XMS RPT_ITS | Summary of Care ---
:1940 Author Organization [facility] Address [address] [place] [address] Phone Care Team Providers Name Role Phone Jus Allison MD Primary Care Provider Sherif Valles MD Unavailable Varsha Pineda INTERNET ARCHITECT Unavailable Fran Burris MD Unavailable Inder Guillen MD Unavailable Reason for Visit Reason Comments Port draw Encounter Details Date Type Department Care Team Description 01/04/2017 Nurse Only [facility] Sherif Valles MD Malignant neoplasm of Center Chemo 801 [facility] head of pancreas (HCC) Infusion Therapy [address] (Primary [address] [place] [address] Dx);Chemotherapy [place] [id number] follow-up [phone] examination;Encounter for antineoplastic chemotherapy Allergies Active Allergy Reactions Severity Noted Date [...] Reading Time Taken Blood Pressure 141/60 01/04/2017 10:52 AM EST Pulse 92 01/04/2017 10:52 AM EST Temperature 36.4 ??C (97.6 ??F) 01/04/2017 10:52 AM EST Respiratory Rate 18 01/04/2017 10:52 AM EST Oxygen Saturation - - Inhaled Oxygen Concentration - - Weight 74.2 kg (163 lb 9.6 oz) 01/04/2017 10:52 AM EST Height 172.7 cm (5' 8) 01/04/2017 10:52 AM EST Body Mass Index 24.88 01/04/2017 10:52 AM EST in this encounter Progress Notes Maida Smith RN - 01/04/2017 11:08 AM ESTPt states he is going for surgery on and will not be getting chemo todayin this encounter Plan of Treatment Upcoming Encounters Date Type Specialty Care Team Description 01/10/2017 Appointment Radiology Codi Kimble, [facility] [address] [facility] [address] [place], [place] [id number] 01/23/2017 Hospital Encounter Transfer Center 01/23/2017 Hospital Encounter Inder Guillen MD [address] [facility] [address] [place], [place] [id number] 01/24/2017 Surgery Inder Guillen MD WHIPPLE PROCEDURE [address] [facility] [address] [place], [place] [id number] 02/15/2017 Office Visit Oncology Sherif Valles MD [address] [place] [address] [address] [place] [address] [phone] Pending Results Name Priority Associated Diagnoses Date/Time CA 19-9 Routine Malignant neoplasm of head of pancreas (HCC) 01/04/2017 10:48 AM EST Chemotherapy follow-up examination Health Maintenance Due Date Last Done Comments TETANUS EVERY 10 YR 1940 ZOSTER VACCINE 2001 PNEUMOCOCCAL VACCINE AGE 65+ (1 of 2 - 2006 PCV13) SEQUENTIAL INFLUENZA VACCINE (#1) 2016 Low-dose CT Lung Cancer Screen 01/03/2018 01/03/2017, 10/16/2016 COLONOSCOPY 07/27/2021 07/27/2016, 01/12/2010 as of this encounter Implants Implanted Type Area [employer] Worker Device Expiration Model / Identifier Date Serial / Lot Port Implanted Mri Isp W/8fr Cath Powerport - [id number] Catheter - Right: BARD PERIP 12/26/2017 [id number] / Implanted: Qty: 1 on 12/04/2016 by Kota Vences MD Implant Subclavian / [id number] as of this encounter Results CBC Auto Differential (01/04/2017 10:48 AM) Component Value Ref Range WBC 10.10 4.50 - 11.00 K/mcL RBC 4.08 (L) 4.50 - 5.90 M/mcL Hemoglobin 13.0 (L) 13.5 - 17.5 g/dL Hematocrit 38.4 (L) 41.0 - 53.0 % MCV 94.1 80.0 - 100.0 fL MCH 31.9 26.0 - 34.0 pg MCHC 33.9 31.0 - 37.0 g/dL Platelets 285 150 - 400 K/mcL RDW - CV 14.4 11.6 - 14.8 % MPV 9.0 9.0 - 15.5 fL Neutrophils 63.0 % Lymphocytes 20.0 % Monocytes 12.5 % Eosinophils 4.0 % Basophils 0.5 % Neutrophils Abs 6.37 1.70 - 7.00 K/mcL Lymphocytes Abs 2.02 0.90 - 4.00 K/mcL Monocytes Abs 1.26 (H) 0.30 - 0.90 K/mcL Eosinophils Abs 0.40 0.00 - 0.50 K/mcL Basophils Abs 0.05 0.00 - 0.30 K/mcL Nucleated RBC 0.0 % Nucleated RBC Abs 0.00 0.00 - 0.00 K/mcL Specimen Performing Laboratory Blood [facility] [address] [place] [address] Comprehensive Metabolic Panel (01/04/2017 10:48 AM) Component Value Ref Range Sodium 133 (L) 135 - 145 mmol/L Potassium 4.2 3.5 - 5.1 mmol/L Chloride 96 (L) 98 - 108 mmol/L Bicarbonate 26 21 - 32 mmol/L Anion Gap 15 10 - 20 mmol/L Glucose 137 (H) 65 - 99 mg/dL BUN 11 8 - 25 mg/dL Creatinine 0.66 (L) 0.80 - 1.30 mg/dL eGFR 95 >=60 mL/min/1.73 m2 BUN/Creatinine Ratio 16.7 10.0 - 20.0 Total Protein 6.7 6.0 - 8.0 g/dL Albumin 3.8 3.2 - 5.2 g/dL Calcium 8.9 8.4 - 10.2 mg/dL Alkaline Phosphatase 73 40 - 150 U/L AST 15 0 - 45 U/L ALT 13 0 - 40 U/L Total Bilirubin 0.6 0.0 - 1.3 mg/dL Specimen Performing Laboratory Blood [facility] [address] [place] [address] Narrative The eGFR should be used for monitoring renal function only and not for medication dosing. CBC and Differential (01/04/2017 10:48 AM) Specimen Performing Laboratory Blood Narrative The following orders were created for panel order CBC and Differential. Procedure? Abnormality? Status? ---------? ------? CBC Auto Differential[[id number]]?Abnormal?Final result? Please view results for these tests on the individual orders. in this encounter Visit Diagnoses Diagnosis Malignant neoplasm of head of pancreas (HCC) - Primary Malignant neoplasm of head of pancreas Chemotherapy follow-up examination Encounter for antineoplastic chemotherapy in this encounter Administered Medications Inactive Administered Medications - up to 3 most recent administrations Medication Order MAR Action Action Date Dose Rate Site heparin, porcine (PF) injection Given 01/04/2017 11:08 EST 500 Units 500 Units 500 Units, Intravenous, As needed, For port needle removal and monthly., Starting Gemini 01/04/17 at 1059, For ports, flush with 10 mL 0.9% NaCl IV and 5 mL Heparin (100 units/mL) prior to needle removal and every month when not in use. sodium chloride (PF) (NS) 0.9 % flush 10 mL Given 01/04/2017 11:01 EST 10 mL 10 mL, Intravenous, As needed, For port needle removal and monthly., Starting Gemini 01/04/17 at 1049, For ports, flush with 10 mL 0.9% NaCl IV and 5 mL Heparin (100 units/mL) prior to needle removal and every month when not in use. sodium chloride (PF) (NS) 0.9 % flush 20 mL Given 01/04/2017 11:01 EST 20 mL 20 mL, Intravenous, As needed, line care, Starting Gemini 01/04/17 at 1049, For Central Lines. Flush after TPN, blood products, and blood draws. in this encounter Insurance Payer Benefit Plan / Group Subscriber ID Type Phone Address HUMANA MANAGED MEDICARE HUMANA MCR GOLD PLUS HMO [id number] [facility]ICA 80% JESSICA [id number] [phone] [place] [id number] as of this encounter
--- OUTSIDE RECORDS SUMMARY | 2018-05-19 09:08 | XMS RPT_ITS | Summary of Care ---
:1940 Author Organization [facility] Address [address] [place] [address] Phone Care Team Providers Name Role Phone Jus Allison MD Primary Care Provider Sherif Valles MD Unavailable Varsha Pineda [facility] Unavailable Fran Burris MD Unavailable Inder Guillen MD Unavailable Encounter Details Date Type Department Care Team Description 12/21/2016 Nurse Only [facility] Sherif Valles MD Encounter for Center Chemo [address] [facility] antineoplastic Infusion Therapy [address] chemotherapy (Primary [address] [place] [address] Dx);[place] [address] of head of pancreas [phone] (HCC) Allergies Active Allergy Reactions Severity Noted [...] Vital Sign Reading Time Taken Blood Pressure 162/89 12/21/2016 9:05 AM EDT Pulse 88 12/21/2016 9:05 AM EDT Temperature 36.2 ??C (97.2 ??F) 12/21/2016 9:05 AM EDT Respiratory Rate 18 12/21/2016 9:05 AM EDT Oxygen Saturation - - Inhaled Oxygen Concentration - - Weight - - Height 172.7 cm (5' 8) 12/21/2016 9:05 AM EDT Body Mass Index - - in this encounter Plan of Treatment Upcoming Encounters Date Type Specialty Care Team Description 12/28/2016 Office Visit Surgical Oncology Inder Guillen MD [address] [facility] [address] [place] [address] [phone] 01/04/2017 Nurse Only Infusion Therapy 01/04/2017 Office Visit Oncology Sherif Valles MD [address] [facility] [address] [place] [address] [phone] 01/04/2017 Infusion/Injection Infusion Therapy Health Maintenance Due Date Last Done Comments TETANUS EVERY 10 YR 1940 ZOSTER VACCINE 2001 PNEUMOCOCCAL VACCINE AGE 65+ (1 of 2 - 2006 PCV13) SEQUENTIAL INFLUENZA VACCINE (#1) 2016 Low-dose CT Lung Cancer Screen 10/16/2017 10/16/2016 COLONOSCOPY 07/27/2021 07/27/2016, 01/12/2010 as of this encounter Implants Implanted Type Area Collection Systems Modeler Device Expiration Model / Identifier Date Serial / Lot Port Implanted Mri Isp W/8fr Cath Powerport - [id number] Catheter - Right: BARD PERIP 12/26/2017 [id number] / Implanted: Qty: 1 on 12/04/2016 by Kota Vences MD Implant Subclavian / [id number] as of this encounter Results Comprehensive Metabolic Panel (12/21/2016 9:06 AM) Component Value Ref Range Sodium 131 (L) 135 - 145 mmol/L Potassium 4.3 3.5 - 5.1 mmol/L Chloride 92 (L) 98 - 108 mmol/L Bicarbonate 27 21 - 32 mmol/L Anion Gap 16 10 - 20 mmol/L Glucose 159 (H) 65 - 99 mg/dL BUN 11 8 - 25 mg/dL Creatinine 0.68 (L) 0.80 - 1.30 mg/dL eGFR 93 >=60 mL/min/1.73 m2 BUN/Creatinine Ratio 16.2 10.0 - 20.0 Total Protein 6.6 6.0 - 8.0 g/dL Albumin 3.7 3.2 - 5.2 g/dL Calcium 9.2 8.4 - 10.2 mg/dL Alkaline Phosphatase 85 40 - 150 U/L AST 27 0 - 45 U/L ALT 36 0 - 40 U/L Total Bilirubin 0.2 0.0 - 1.3 mg/dL Specimen Performing Laboratory Blood [facility] [address] [place] [address] Narrative The eGFR should be used for monitoring renal function only and not for medication dosing. CBC Auto Differential (12/21/2016 9:06 AM) Component Value Ref Range WBC 6.17 4.50 - 11.00 K/mcL RBC 3.66 (L) 4.50 - 5.90 M/mcL Hemoglobin 11.4 (L) 13.5 - 17.5 g/dL Hematocrit 34.0 (L) 41.0 - 53.0 % MCV 92.9 80.0 - 100.0 fL MCH 31.1 26.0 - 34.0 pg MCHC 33.5 31.0 - 37.0 g/dL Platelets 446 (H) 150 - 400 K/mcL RDW - CV 13.5 11.6 - 14.8 % MPV 8.0 (L) 9.0 - 15.5 fL Neutrophils 45.1 % Lymphocytes 33.5 % Monocytes 14.1 % Eosinophils 6.3 % Basophils 1.0 % Neutrophils Abs 2.78 1.70 - 7.00 K/mcL Lymphocytes Abs 2.07 0.90 - 4.00 K/mcL Monocytes Abs 0.87 0.30 - 0.90 K/mcL Eosinophils Abs 0.39 0.00 - 0.50 K/mcL Basophils Abs 0.06 0.00 - 0.30 K/mcL Nucleated RBC 0.0 % Nucleated RBC Abs 0.00 0.00 - 0.00 K/mcL Specimen Performing Laboratory Blood [facility] [address] [place] [address] CBC and Differential (12/21/2016 9:06 AM) Specimen Performing Laboratory Blood Narrative The following orders were created for panel order CBC and Differential. Procedure? Abnormality? Status? ---------? ------? CBC Auto Differential[[id number]]?Abnormal?Final result? Please view results for these tests on the individual orders. in this encounter Visit Diagnoses Diagnosis Encounter for antineoplastic chemotherapy - Primary Malignant neoplasm of head of pancreas (HCC) Malignant neoplasm of head of pancreas in this encounter Administered Medications Inactive Administered Medications - up to 3 most recent administrations Medication Order MAR Action Action Date Dose Rate Site sodium chloride (PF) (NS) 0.9 % flush Given 12/21/2016 09:10 EDT 10 mL 10 mL 10 mL, Intravenous, As needed, line care, Starting Gemini 12/21/16 at 0902, For Central Lines. Flush before and after medication administration. sodium chloride (PF) (NS) 0.9 % flush 20 mL Given 12/21/2016 09:10 EDT 20 mL 20 mL, Intravenous, As needed, line care, Starting Gemini 12/21/16 at 0902, For Central Lines. Flush after TPN, blood products, and blood draws. in this encounter Insurance Payer Benefit Plan / Group Subscriber ID Type Phone Address HUMANA MANAGED MEDICARE HU[employer]NA MCR GOLD PLUS HMO [id number] HCAP/JESSICA 80% JESSICA [id number] [phone] [place] [id number] as of this encounter
--- OUTSIDE RECORDS SUMMARY | 2018-05-19 09:08 | XMS RPT_ITS | Summary of Care ---
:1940 Author Organization [facility] Address [address] [place] [address] Phone Care Team Providers Name Role Phone Jus Allison MD Primary Care Provider Sherif Valles MD Unavailable Varsha Pineda PERSONNEL AND PAYROLL TECHNICIAN Unavailable Fran Burris MD Unavailable Reason for Visit Reason Comments Arm Swelling right upper chest /port site swelling Auth/Cert Status Reason Specialty Diagnoses / Procedures Referred By Contact Referred To Contact Diagnoses Hyponatremia Infected venous access port, initial encounter Encounter Details Date Type Department Care Team Description 12/09[facility]2016 [facility] [address] [place] [phone] Infected venous 12/12/2016 Hospital [facility] Daren Nur MD [address], [place] [id number] access port, [address] [facility] Earl Frazier MD [address] [place] [address] [phone] ([place] [address] Dx);Hyponatremia;In [phone] fection of central venous catheter insertion site, initial encounter;Other emphysema (HCC);Pure hypercholesterolemi a;Tobacco use;Pancytopenia (HCC) Allergies Active Allergy Reactions Severity Noted Date Comments Ciprofloxacin 12/01/2014 Penicillin 12/01/2014 Tetracycline 12/01/2014 Ondansetron Hcl Hives 11/30/2016 Itching, hives, shortness of breath, sweating as of this encounter Medications Prescription Sig. Disp. Refills Start Date End Date Status aspirin 81 MG EC Take 1 tablet Active tabletIndications: pt by mouth daily states he has not Reasons: pt been taking for a states he has couple of weeks not been taking for a couple of weeks. mometasone-formoterol Inhale 2 puffs 01/11/2012 Active (DULERA) 200-5 2 (two) times mcg/actuation HFAA a day. alfuzosin (UROXATRAL) Take 1 tablet 30 tablet 11 10/08/2015 Active 10 mg 24 hr (10 mg total) tabletIndications: by mouth at Benign nodular bedtime. prostatic hyperplasia with lower urinary tract symptoms oxygen Inhale 2.5 Active L/min nightly. omeprazole (PRILOSEC) Take 1 (one) 30 capsule 11 08/18/2016 08/19/19 Active 40 MG capsule (40 mg 18 capsuleIndications: total) by Generalized abdominal mouth daily. pain dexamethasone Take 2 (two) 12 tablet 6 11/20/2016 12/19/19 Active (DECADRON) 4 MG tablets (8 mg 17 tablet total) by mouth 2 (two) times a day with meals START TAKING DAY AFTER CHEMO FOR 2 DAYS. cephALEXin (KEFLEX) Take 1 (one) 32 capsule 0 12/12/2016 12/21/19 Active 500 MG capsule capsule (500 17 mg total) by mouth 4 (four) times a day for 8 days. doxycycline hyclate Take 1 (one) 16 tablet 0 12/12/2016 12/21/19 Active (VIBRA-TABS) 100 MG tablet (100 mg 17 tablet total) by mouth 2 (two) times a day for 8 days. finasteride (PROSCAR) Take 1 tablet 30 tablet 11 04/16/2015 12/10/19 Discontinued 5 mg tablet (5 mg total) 17 by mouth daily. OCEAN NASAL 0.65 % Instill 2 09/25/2015 12/10/19 Discontinued nasal spray sprays into 17 each nostril as needed . fluocinonide (LIDEX) Apply 15 g 0 01/17/2016 12/10/19 Discontinued 0.05 % topically 2 17 creamIndications: (two) times a Lichen simplex day .5 gm BID chronicus to L leg rash for 15 days. diphenoxylate-atropin Take 1 tablet 12/10/19 Discontinued e (LOMOTIL) 2.5-0.025 by mouth 4 17 mg per tablet (four) times a day as needed for diarrhea. pancrelipase, Take 1 (one) 90 capsule 0 08/07/2016 12/10/19 Discontinued Lyz-Tfnk-Lkro, capsule 17 (CREON) 12,000-38,000 (12,000 units -60,000 unit CpDR of lipase capsule total) by mouth 3 (three) times a day with meals. prochlorperazine Take 1 (one) 30 tablet 3 11/07/2016 12/10/19 Discontinued (COMPAZINE) 10 MG tablet (10 mg 17 tabletIndications: total) by Malignant neoplasm of mouth every 6 head of pancreas (six) hours as (HCC) needed for nausea. HYDROcodone-acetamino Take 1 (one) 20 tablet 0 12/04/2016 12/10/19 Discontinued phen (NORCO) 5-325 mg tablet to 2 17 per tablet (two) tablets by mouth every 6 [...] Vital Sign Reading Time Taken Blood Pressure 148/73 12/12/2016 8:21 AM EDT Pulse 87 12/12/2016 8:21 AM EDT Temperature 36.4 ??C (97.6 ??F) 12/12/2016 8:21 AM EDT Respiratory Rate 16 12/12/2016 8:21 AM EDT Oxygen Saturation 93% 12/12/2016 8:21 AM EDT Inhaled Oxygen Concentration - - Weight 76.2 kg (167 lb 15.9 oz) 12/09/2016 12:55 PM EDT Height 172.7 cm (5' 8) 12/09/2016 12:55 PM EDT Body Mass Index 25.54 12/09/2016 12:55 PM EDT in this encounter Discharge Summaries Earl Frazier MD - 12/12/2016 10:45 AM EDTFormatting of this note may be different from the original. DISCHARGE SUMMARY Patient: Elbert Espinosa Account: [id number] Admitted: 12/09/2016 Discharge Date/Time: No discharge date for patient encounter. Clinical Summary Perpetual Assessment: Elbert??Francisca??is a 76 y.o.??male??patient of Jus Allison MD??withhistory of ??COPD with continued tobacco use( not on home o2), Ca pancreas (stage IB (T2N0M0) of ??head and uncinate process measuring 2.1 cm, Diagnosed in 10/31/2016 on neoadjuvant chemotherapy with Ge mzar and Abraxane started 11/16/16 and ?follows at [facility] surgery??and oncologist??dr Valles ) on chemo with recent h/o R chest mediport placement on 12/04/[address] Vences and s/p 2nd round of chemo on 12/07/16 comes to [place] [facility] with one day increased pain at Mediport site with redness and pain in his pancho ulder and RLE .He is being suspected catheter site infection. ? Discharge Diagnoses and Associated Hospital Course: 1.Suspected [facility] site infection S/p [facility] on 12/04/[address] Vences Presented with increased redness and pain at [facility] Cultures are negative so far no signs of SIRS or sepsis RUE and BL LE duplex negative for DVT Redness improving at [facility] site On vanco and ancef, will change to Keflex and Doxy on discharge He had previously nausea and vomiting with Tetracyclines , advised to take with food ?2. bilateral Leg swelling Bilateral, R>L, with right sided hyperemia Negative DVT on venous duplex of LE Elevate legs while on bed EDGARDO wraps , hyperemia of RLE is improved this am , pain is better this am Continue ATBx Tx , d/c home with F/U with PCP and Dr. Valles Swelling improved , don't feel will need Lasix on discharge ? 3. Cancer of pancreas Stage IB involving head and uncinate process measuring 2.1 cm On neoadjuvant chemo with Gemzar and Abraane from 11/16/[address] Valles and [facility] surgeon ? 4.Hyponatremia, possible SIADH Mild , Na 130 this am With JR 60 and urine osmolality 357 monitor ? 5. Tobacco use Still smokes 1ppd Counseled to quit Refusing nicotine patch ? 6.GERD Stable on PPI, resume ? 7.BPH Without obstruction Says stopped home med ( alpha rudolph) as it was not helping OP urology f/u on discharge ?? 8. COPD Not in exacerbation C/w home inhalers Smoking cessation reinforced 9.Pacytopenia Likely chemo induced Repeat CBC early next week ?? 10.DVT prophylaxis SQ lovenox Service: Hospitalist GENERAL: Chr sick looking male. Resting comfortably. NAD HEAD: Normocephalic ENT: Hearing intact. CV: Reg, no murmur. No JVD. No Edema RESP: + R chest Mediport with cellulitic changes resolved , Diminished breath sounds at bases. No rales, rhonchi, wheezes GI: Non-distended, +BS, soft, non-tender. SKIN: Warm and dry. No rashes. EXT: no cyanosis, clubbingj. + edema of B/L R>L, with right sided hyperemia improved since day before , pin improved as well NEURO: Alert, Ox3. Grossly normal motor and sensory exam. No focal deficits PSYCH: Mood and affect are appropriate. Cooperative. Surgeries No admission procedures for hospital encounter. Procedures No orders of the defined types were placed in this encounter. Consults Procedures ??? Hospitalize Patient To : ??? Consult Surgery Other Tests No orders of the defined types were placed in this encounter. Allergies Ciprofloxacin; Penicillin; Tetracycline; and Zofran (as hydrochloride) [ondansetron hcl] Discharge Diet Resume home diet Discharge Medications Medication List START taking these medications cephALEXin 500 MG capsule Commonly known as: KEFLEX Take 1 (one) capsule (500 mg total) by mouth 4 (four) times a day for 8 days. doxycycline hyclate 100 MG tablet Commonly known as: VIBRA-TABS Take 1 (one) tablet (100 mg total) by mouth 2 (two) times a day for 8 days. CHANGE how you take these medications dexamethasone 4 MG tablet Commonly known as: DECADRON Take 2 (two) tablets (8 mg total) by mouth 2 (two) times a day with meals START TAKING DAY AFTER CHEMO FOR 2 DAYS. What changed: additional instructions CONTINUE taking these medications alfuzosin 10 mg 24 hr tablet Commonly known as: UROXATRAL Take 1 tablet (10 mg total) by mouth at bedtime. aspirin 81 MG EC tablet DULERA 200-5 mcg/actuation Hfaa Generic drug: mometasone-formoterol omeprazole 40 MG capsule Commonly known as: PRILOSEC Take 1 (one) capsule (40 mg total) by mouth daily. oxygen Where to Get Your Medications You can get these medications from any pharmacy Bring a paper prescription for each of these medications ??? cephALEXin 500 MG capsule ??? doxycycline hyclate 100 MG tablet Physician(s) Primary Care Provider: Jus Allison MD, , Address: [address] [facility] /[facility] [address] Follow Up: Jus Allison MD [address] [facility] [address] Follow up in 10 day(s) Sherif Valles MD [address] [facility] [address] [facility] [address] Additional Information Patient instructions, including activity, were given to the patient/family at discharge. Please seethe After Visit Summary in the medical record for details. Time spent on discharge: > 30 minutes Completed by: Earl Frazier on 12/12/16, 10:46 Koch this encounter Progress Notes Vicky Velásquez RN - 12/12/2016 10:57 AM EDTFormatting of this note may be different from the original. 12/12/16 1056 Discharge Plan Shared UM/CC and RN Source of Information Significant Other [facility] Documentation [facility] Documentation Medicare [facility] Documentation Status Signed Signed Spouse Anticipated Discharge Plan Anticipated HME None Anticipated Home Care Needs Other (Comment);None (outpt f;u) Discharge Readiness Expected Discharge Date 12/12/16 [facility] Disposition D/C Disposition Home Agency/Destination Home Home Care Needs None HME None Same As Recommended yes Transportation Type Auto pt and spouse denies dc Anitra Hope R.Ph. - 12/12/2016 10:34 AM EDT Vancomycin trough goal is 10-15 mcg/mL. IF blood cxs become positive or clinically patient declinescan increase trough goal. Based on drug level of 12.6, will continue vancomycin at 1250 mg q12h Will monitor serum creatinine levels and urine output (if available) daily. Pharmacy will continue to follow, order levels, and make adjustments/recommendations as needed.Kiesha Gentile CNP - 12/12/2016 8:19 AM EDTFormatting of this note may be different from the original. DAILY SURGERY PROGRESS NOTE Patient Name: Elbert Espinosa MR #: [id number] Assessment/Plan: * Postoperative infection Assessment & Plan - Hemodynamics stable, afebrile, on RA - Pain: Tylenol PRN - Continue Activity as tolerated, encouraged ambulation - Continue VTE prophylaxis with Lovenox and ambulation - Continue antibiotics, awaiting final culture results Subjective/Objective: Perpetual Assessment: HD #4; possible port infection. Patient is feeling fine and wants to go home today. He feels his port site is 100% better and does not need to be here anymore. Not having as muchRLE pain compared to yesterday. Physical Examination: Blood pressure 128/65, pulse 88, temperature 98.1 ??F (36.7 ??C), temperature source Oral, resp. rate 16, height 5' 8, weight 76.2 kg (167 lb 15.9 oz), SpO2 98 %. General: Alert & orientated x 3, cooperative, no distress Chest: Right upper chest port site without erythema or edema; non-tender to palp Extremities: RLE: 1+ edema right ankle and foot; erythema improved compared to yesterday. Mildly tender on palp. LLE: non-tender, no erythema or edema Psych: Mood and affect appropriate Intake/Output last 3 shifts: I/O last 3 completed shifts: In: 2425.3 [P.O.:1210; IV Piggyback:1215.3] Out: 2580 [Urine:2580] Results/Medications Reviewed 12/12/16 8:15 AM: Laboratory, Microbiology and Medications - Laboratory Studies: CBC: Results from last 7 days Lab Units 12/12/16 0502 12/11/16 0427 12/10/16 0449 WBC K/mcL 2.50* 4.53 6.93 HGB g/dL 10.7* 10.4* 11.6* HCT % 30.6* 29.8* 33.1* PLT K/mcL 107* 103* 126* Chem: Results from last 7 days Lab Units 12/12/16 0502 12/11/16 0427 12/10/16 0449 12/07/16 0903 SODIUM mmol/L 130* 129* 128* < > 131* POTASSIUM mmol/L 3.3* 3.1* 3.6 < > 4.1 CHLORIDE mmol/L 93* 94* 94* < > 93* BUN mg/dL 15 9 10 < > 10 CREATININE mg/dL 0.72* 0.69* 0.65* < > 0.64* CALCIUM mg/dL 8.3* -- 8.4 < > 8.7 TOTAL PROTEIN g/dL -- -- -- -- 6.3 ALK PHOS U/L -- -- -- -- 59 ALT U/L -- -- -- -- 29 AST U/L -- -- -- -- 22 GLUCOSE mg/dL 139* 136* 127* < > 203* < > = values in this interval not displayed. Results from last 7 days Lab Units 12/11/16 0427 12/10/16 0449 MAGNESIUM mg/dL 1.7 1.7 Blood culture: NGTD (prelim) Venous dopplers: RUE & BLE negative for DVT Assessment Detail: Based on current clinical information, the expected discharge date is TBD by primary service Associated attestation - Kota Vences MD - 12/12/2016 2:13 PM EDTAs per PERSONNEL AND PAYROLL TECHNICIAN He no longer has any pain or tenderness at the port site. The erythema has resolved. He will continue oral antibiotics as an outpatient. He can follow-up with me as needed.Tommy Pierre, KRISTIE - 12/12/2016 7:45 AM EDTSpO2 98% on room air at rest, walked 50 feet on room air SpO2 96%Earl Frazier MD - 12/11/2016 9:57 AM EDTFormatting of this note may be different from the original. Disposition/Comments: On hold Perpetual Assessment: Elbert Espinosa is a 76 y.o. y/o male on hospital day 2. ASSESSMENT AND PLAN: Perpetual Assessment: Elbert Espinosa is a 76 y.o. 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 follows at [facility] surgery and oncologist dr Valles ) on chemo with recent h/o R chest mediport placement on 12/04/[address] Vences and s/p 2nd round of chemo on 12/07/16 comes to [facility] ER with one day increased pain at [facility] site with redness and pain in his shoulder.He is being suspected catheter /site infection. ? 1.[facility] [facility] Presented with increased redness and pain at [facility] site Cultures are negative so far no signs of SIRS or sepsis RUE and BL LE duplex negative for DVT Redness improving at [facility] site On vanco and ancef, will continue for now Surgery dr Vences following ?2. bilateral Leg swelling Bilateral, R>L, with right sided hyperemia Negative DVT on venous duplex of LE Change lovenox to prophylactic dose today Elevate legs while on bed EDGARDO wrap 3. Cancer of pancreas Stage IB involving head and uncinate process measuring 2.1 cm On neoadjuvant chemo with Gemzar and Abraane from 11/16/[address] Valles and [facility] surgeon ?? 4.Hyponatremia, possible SIADH Na 129 this am With JR 60 and urine osmolality 357 monitor ?? 5. Tobacco use Still smokes 1ppd Counseled to quit Refusing nicotine patch ?? 6.GERD Stable on PPI, resume ?? 7.BPH Without obstruction Says stopped home med ( alpha rudolph) as it was not helping OP urology f/u on discharge 8. COPD Not in exacerbation C/w home inhalers Smoking cessation reinforced 10.DVT prophylaxis SQ lovenox ?? Full code CC / Reason for follow up: mediport site infection, LE swelling concerning for DVT SUBJECTIVE: denies fever, sob. R sided shoulder and chest pain resolved Complaint of RLE pain and hyperemia Will continue ATBx and monitor in the hospital Discussed with Dr. Valles on the phone PHYSICAL EXAMINATION: Temp: [98.2 ??F (36.8 ??C)-99.4 ??F (37.4 ??C)] 99.2 ??F (37.3 ??C) Heart Rate: [79-98] 89 Resp: [16-20] 17 BP: (103-150)/(62-74) 146/74 GENERAL: Chr sick looking male. Resting comfortably. NAD HEAD: Normocephalic ENT: Hearing intact. CV: Reg, no murmur. No JVD. No Edema RESP: + R chest Mediport with cellulitic changes ( improving from prior ) , Diminished breath sounds at bases. No rales, rhonchi, wheezes GI: Non-distended, +BS, soft, non-tender. SKIN: Warm and dry. No rashes. EXT: no cyanosis, clubbingj. + edema of B/L R>L, with right sided hyperemia NEURO: Alert, Ox3. Grossly normal motor and sensory exam. No focal deficits PSYCH: Mood and affect are appropriate. Cooperative. Current Facility-Administered Medications Medication Dose Route Frequency Provider Last Rate Last Dose ??? acetaminophen (TYLENOL) tablet 650 mg 650 mg Oral Q4H PRN Daren Nur MD 650 mg at 12/11/16 0103 ??? aluminum-magnesium hydroxide-simethicone (MAALOX PLUS) 200-200-20 mg/5 mL suspension 30 mL 30 mL Oral Q4H PRN Daren Nur MD ??? aspirin EC tablet 81 mg 81 mg Oral Daily Daren Nur MD 81 mg at 12/11/16923 ??? bisacodyl (DULCOLAX) suppository 10 mg 10 mg Rectal Daily PRN Daren Nur MD ??? budesonide-formoterol (SYMBICORT) 160-4.5 mcg/actuation inhaler 2 puff 2 puff Inhalation BID Daren Nur MD 2 puff at 12/11/16714 ??? ceFAZolin (ANCEF) IVPB 2 g (premix) 2,000 mg Intravenous Q8H Daren Nur MD 200 mL/hr at 12/11/16923 2,000 mg at 12/11/16923 ??? enoxaparin (LOVENOX) syringe 40 mg 40 mg Subcutaneous Daily Daren Nur MD 40 mg at 12/11/16923 ??? furosemide (LASIX) injection 40 mg 40 mg Intravenous BID Daren Nur MD 40 mg at 12/11/16923 ??? ipratropium-albuterol (DUO-NEB) 0.5-2.5 mg/3 ml nebulizer solution 3 mL 3 mL Inhalation 4x daily Daren Nur MD 3 mL at 10/16/17 0715 ??? ipratropium-albuterol (DUO-NEB) 0.5-2.5 mg/3 ml nebulizer solution 3 mL 3 mL Inhalation Q2H PRNSjorge Nur MD ??? magnesium hydroxide (MOM) 400 mg/5 mL suspension 2,400 mg 30 mL Oral Daily PRN Daren Nur MD ??? nitroGLYCERIN (NITROSTAT) SL tablet 0.4 mg 0.4 mg Sublingual Q5 Min PRN Daren Nur MD ??? pantoprazole (PROTONIX) EC tablet 40 mg 40 mg Oral Nightly Daren Nur MD 40 mg at 12/10/16 2101 ??? traZODone (DESYREL) tablet 50 mg 50 mg Oral Nightly PRN Daren Nur MD ??? vancomycin (VANCOCIN) 1,250 mg in sodium chloride 0.9 % (NS) 250 mL IVPB 1,250 mg Intravenous Q12H Daren Nur MD Stopped at 12/11/16 0056 I/O???s last 3 shifts: I/O last 3 completed shifts: In: 3713.8 [P.O.:480; I.V.:1616.1; IV Piggyback:1617.7] Out: 2455 [Urine:2455] Results from last 7 days Lab Units 12/11/1642612/10/1644812/09/16104612/07/16 0903 WBC K/mcL 4.53 6.93 6.52 3.83* HGB g/dL 10.4* 11.6* 12.0* 12.4* HCT % 29.8* 33.1* 34.5* 36.1* PLT K/mcL 103* 126* 139* 202 MONOS% % -- -- 0.3 6.0 Results from last 7 days Lab Units 12/11/1642612/10/1644812/09/16104612/07/16 0903 SODIUM mmol/L 129* 128* 129* 131* POTASSIUM mmol/L 3.1* 3.6 3.6 4.1 CHLORIDE mmol/L 94* 94* 94* 93* BUN mg/dL 9 10 13 10 CREATININE mg/dL 0.69* 0.65* 0.70* 0.64* GLUCOSE mg/dL 136* 127* 127* 203* CALCIUM mg/dL -- 8.4 8.5 8.7 Reviewed 12/11/16 9:57 AM: Laboratory Transcriptions Radiology Microbiology Cardiology Outside Records Medications Family Expected Discharge/Time Spent/CCM Time: On hold D/w Darcie Gonzalez LISW - 12/11/2016 8:59 AM EDT COMPLEX DISCHARGE Date: 12/11/2016 Time: 8:59 AM Patient Name: Elbert Espinosa Date of : 1940 Sex: Male Discharge Plan Shared UM/CC and RN Source of Information: Patient Contact Phone Number: Hannah Espinosa - spouse [phone] Living Arrangements: Spouse/significant other Support Systems: Spouse/significant other Functional Status: Independent Type of Residence: Private residence Prior to Admission Home Care Services: No Current Home Equipment: Oxygen Insurance Coverage for Prescriptions: Yes Anticipated Discharge Plan Anticipated HME: None Anticipated Home Care Needs: None Potential for Readmission Potential for Readmission: No Discharge Readiness Expected Discharge Date: 12/12/16 Barriers to Discharge: Other (Comment) (cultures) [facility] Disposition D/C Disposition: Home Agency/Destination: Home Home Care Needs : None HME: None Same As Recommended : yes Transportation Type: Auto Admitted with mediport site infection. Patient lives with spouse at home. Uses 2.5L O2 at home at night through [place] [facility]. No prior HH services. PCP is Dr. Allison, pt states he will schedule appt if needed. Patient has appt with Dr. Valles oncologist on 12/21/16. Patient had port placed on 12/04/16 and had chemo on 12/07/16. Waiting on cultures to determine infection vs chemo reaction. No DC needs identified at this time. Kiesha Gentile CNP - 12/11/2016 8:38 AM EDTFormatting of this note may be different from the original. DAILY SURGERY PROGRESS NOTE Patient Name: Elbert Espinosa MR #: [id number] Assessment/Plan: * Postoperative infection Assessment & Plan - Hemodynamics stable, afebrile, on RA - Pain: Tylenol PRN - Activity as tolerated, encouraged ambulation - VTE prophylaxis with Lovenox and ambulation - Continue antibiotics, awaiting final culture results - Discussed RLE edema, erythema, tenderness with Dr. Frazier Subjective/Objective: Perpetual Assessment: HD #3; possible port infection. Patient is feeling unhappy, wanting to know why his leg is swollen. Pt is experiencing pain in RLE, unable to walk on it. Denies pain or discomfort at port site. Tolerating diet. Denies chest pain, dyspnea, nausea or vomiting. + Flatus. Voiding. Physical Examination: Blood pressure 146/74, pulse 89, temperature 99.2 ??F (37.3 ??C), temperature source Oral, resp. rate 17, height 5' 8, weight 76.2 kg (167 lb 15.9 oz), SpO2 94 %. General: Alert & orientated x 3, cooperative, no distress, Lungs: Scattered rhonchi . No wheezes; no increased respiratory effort Cardiovascular: RRR. Chest: Port site non tender, Slightly erythematous, no increase in size from prior marked area. Extremities: 1+ edema right ankle and foot. + redness from knee to toes. +tenderness. Pulse not palpable Psych: Mood and affect appropriate Intake/Output last 3 shifts: I/O last 3 completed shifts: In: 3713.8 [P.O.:480; I.V.:1616.1; IV Piggyback:1617.7] Out: 2455 [Urine:2455] Results/Medications Reviewed 12/11/16 8:25 AM: Laboratory, Microbiology, Radiology, Medications and Transcriptions - Laboratory Studies: CBC: Results from last 7 days Lab Units 12/11/1642612/10/1644812/09/16 1047 WBC K/mcL 4.53 6.93 6.52 HGB g/dL 10.4* 11.6* 12.0* HCT % 29.8* 33.1* 34.5* PLT K/mcL 103* 126* 139* Chem: Results from last 7 days Lab Units 12/11/1642612/10/1644812/09/16 1047 12/07/16 0903 SODIUM mmol/L 129* 128* 129* 131* POTASSIUM mmol/L 3.1* 3.6 3.6 4.1 CHLORIDE mmol/L 94* 94* 94* 93* BUN mg/dL 9 10 13 10 CREATININE mg/dL 0.69* 0.65* 0.70* 0.64* CALCIUM mg/dL -- 8.4 8.5 8.7 TOTAL PROTEIN g/dL -- -- -- 6.3 ALK PHOS U/L -- -- -- 59 ALT U/L -- -- -- 29 AST U/L -- -- -- 22 GLUCOSE mg/dL 136* 127* 127* 203* Results from last 7 days Lab Units 12/10/16 0449 MAGNESIUM mg/dL 1.7 Blood culture- no growth to date Venous doppler -RUE, Bilateral LE negative for DVT Assessment Detail: Based on current clinical information, the expected discharge date is TBD by primary service Associated attestation - Kota Vences MD - 12/11/2016 2:08 PM EDTAs per PERSONNEL AND PAYROLL TECHNICIAN. Patient was seen, examined, and evaluated independently. The upper right chest and shoulder are feeling better today. He still has swelling and pain and tenderness in the right lower leg. His blood cultures are negative to date. Doppler studies were negative. On exam, the erythema overlying the port has certainly faded and seems to be covering a smaller area. He has less edema. He also has less tenderness overlying the port, in the right supraclavicular fossa, and in the right shoulder/neck. He still has significant erythema in the right lower leg, altho ugh it seems a little fainter. It is still quite tender. It appears that the erythema over the port and the symptoms in the right upper chest and shoulder are certainly improving on the antibiotics. The leg seems a little better, but I am not sure the best explanation for it. We will continue the antibiotics for now.Daren Nur MD - 12/10/2016 11:34 AM EDTFormatting of this note may be different from the original. Disposition/Comments: On hold Perpetual Assessment: Elbert Espinosa is a 76 y.o. y/o male on hospital day 1. ASSESSMENT AND PLAN: Perpetual Assessment: Elbert Espinosa is a 76 y.o. 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 follows at [facility] surgery and oncologist dr Valles ) on chemo with recent h/o R chest mediport placement on 12/04/[address] Vences and s/p 2nd round of chemo on 12/07/16 comes to [place] ER with one day increased pain at Mediport site with redness and pain in his shoulder.He is being suspected catheter /site infection. ? 1.Suspected Mediport site infection S/p mediport on 12/04/[address] Vences Presented with increased redness and pain at mediport site Cultures pending, no signs of SIRS or sepsis RUE duplex negative for DVT Redness improving at Mediport site On vanco and ancef, continue Surgery dr Vences following ? 2. bilateral Leg swelling Bilateral, R>L Negative DVT on venous duplex of LE today Change lovenox to prophylactic dose today Elevate legs while on bed Check BNP, lasix trial and EDGARDO wrap to LE ?? 3. Cancer of pancreas Stage IB involving head and uncinate process measuring 2.1 cm On neoadjuvant chemo with Gemzar and Abraane from 11/16/[address] Valles and [facility] surgeon ?? 4.Hyponatremia, possible SIADH Na 129 on admission Its worse today Check urine sodium and urine osmolality monitor ?? 5. Tobacco use Still smokes 1ppd Counseled to quit Refusing nicotine patch ?? 6.GERD Stable on PPI, resume ?? 7.BPH Without obstruction Says stopped home med ( alpha rudolph) as it was not helping OP urology f/u on discharge 8. COPD Not in exacerbation C/w home inhalers Smoking cessation reinforced 10.DVT prophylaxis SQ lovenox ?? Full code CC / Reason for follow up: mediport site infection, LE swelling concerning for DVT SUBJECTIVE: denies fever, sob. R sided shoulder and chest pain better. Negative DVT on duplex today ROS: The following system(s) were reviewed. Pertinent positive and negative findings are noted in the HPI. Review of Systems Constitution: Negative for diaphoresis, malaise/fatigue, weight gain and weight loss. HENT: Negative for hearing loss, nosebleeds and tinnitus.?? Eyes: Negative for blurred vision and visual disturbance. Cardiovascular: negative for chest pain. Negative for claudication, cyanosis, dyspnea on exertion, irregular heartbeat, leg swelling, near-syncope, orthopnea, palpitations, paroxysmal nocturnal dyspneaand syncope. Respiratory: Negative for shortness of breath. Negative for hemoptysis and snoring.?? Endocrine: Negative for cold intolerance and heat intolerance. Hematologic/Lymphatic: Does not bruise/bleed easily. Skin: Negative for flushing, poor wound healing and rash. Musculoskeletal: Negative for back pain, muscle weakness and myalgias. Gastrointestinal: Negative for abdominal pain, change in bowel habit, melena, nausea and vomiting. Genitourinary: Negative for decreased libido and hematuria. Neurological: Negative for loss of balance and numbness. Psychiatric/Behavioral: Negative for memory loss. The patient is not nervous/anxious.?? All other systems personally reviewed and if I did not specifically mention them in the HPI, are to be considered negative. PHYSICAL EXAMINATION: Temp: [98 ??F (36.7 ??C)-99.8 ??F (37.7 ??C)] 98.5 ??F (36.9 ??C) Heart Rate: [80-95] 85 Resp: [16-20] 16 BP: (121-184)/(58-92) 158/71 GENERAL: Chr sick looking male. Resting comfortably. NAD HEAD: Normocephalic ENT: Hearing intact. CV: Reg, no murmur. No JVD. No Edema RESP: + R chest Mediport with cellulitic changes ( improving from prior ) , Diminished breath sounds at bases. No rales, rhonchi, wheezes GI: Non-distended, +BS, soft, non-tender. SKIN: Warm and dry. No rashes. EXT: no cyanosis, clubbingj. + edema of B/L R>L NEURO: Alert, Ox3. Grossly normal motor and sensory exam. No focal deficits PSYCH: Mood and affect are appropriate. Cooperative. Current Facility-Administered Medications Medication Dose Route Frequency Provider Last Rate Last Dose ??? acetaminophen (TYLENOL) tablet 650 mg 650 mg Oral Q4H PRN Daren Nur MD 650 mg at 12/09/16 2242 ??? aluminum-magnesium hydroxide-simethicone (MAALOX PLUS) 200-200-20 mg/5 mL suspension 30 mL 30 mL Oral Q4H PRN Daren Nur MD ??? aspirin EC tablet 81 mg 81 mg Oral Daily Daren Nur MD ??? bisacodyl (DULCOLAX) suppository 10 mg 10 mg Rectal Daily PRN Daren Nur MD ??? budesonide-formoterol (SYMBICORT) 160-4.5 mcg/actuation inhaler 2 puff 2 puff Inhalation BID Daren Nur MD 2 puff at 12/10/16727 ??? ceFAZolin (ANCEF) IVPB 2 g (premix) 2,000 mg Intravenous Q8H Daren Nur MD Stopped at 12/10/16253 ??? enoxaparin (LOVENOX) syringe 80 mg 1 mg/kg Subcutaneous Q12H Daren Nur MD 80 mg at 12/09/162116 ??? ipratropium-albuterol (DUO-NEB) 0.5-2.5 mg/3 ml nebulizer solution 3 mL 3 mL Inhalation 4x daily Daren Nur MD 3 mL at 12/10/16727 ??? ipratropium-albuterol (DUO-NEB) 0.5-2.5 mg/3 ml nebulizer solution 3 mL 3 mL Inhalation Q2H PRNSjorge Nur MD ??? magnesium hydroxide (MOM) 400 mg/5 mL suspension 2,400 mg 30 mL Oral Daily PRN Daren Nur MD ??? nitroGLYCERIN (NITROSTAT) SL tablet 0.4 mg 0.4 mg Sublingual Q5 Min PRN Daren Nur MD ??? pantoprazole (PROTONIX) EC tablet 40 mg 40 mg Oral Nightly Daren Nur MD 40 mg at 12/09/162116 ??? sodium chloride 0.9% (NS) 100 mL/hr Intravenous Continuous Daren Nur MD 100 mL/hr at 12/10/16223 100 mL/hr at 12/10/16223 ??? traZODone (DESYREL) tablet 50 mg 50 mg Oral Nightly PRN Daren Nur MD ??? vancomycin (VANCOCIN) 1,250 mg in sodium chloride 0.9 % (NS) 250 mL IVPB 1,250 mg Intravenous Q12H Daren Nur MD 250 mL/hr at 12/09/162315 1,250 mg at 12/09/162315 ??? vancomycin per pharmacy 1 each 1 each Intravenous as indicated by pharmacokinetics Daren Ma MD I/O???s last 3 shifts: I/O last 3 completed shifts: In: 464.5 [P.O.:240; I.V.:188.3; IV Piggyback:36.2] Out: - Results from last 7 days Lab Units 12/10/1644812/09/16104612/07/16 0903 WBC K/mcL 6.93 6.52 3.83* HGB g/dL 11.6* 12.0* 12.4* HCT % 33.1* 34.5* 36.1* PLT K/mcL 126* 139* 202 MONOS% % -- 0.3 6.0 Results from last 7 days Lab Units 12/10/1644812/09/167 12/07/16 0903 SODIUM mmol/L 128* 129* 131* POTASSIUM mmol/L 3.6 3.6 4.1 CHLORIDE mmol/L 94* 94* 93* BUN mg/dL 10 13 10 CREATININE mg/dL 0.65* 0.70* 0.64* GLUCOSE mg/dL 127* 127* 203* CALCIUM mg/dL 8.4 8.5 8.7 Reviewed 12/10/16 8:09 AM: Laboratory Transcriptions Radiology Microbiology Cardiology Outside Records Medications Family Expected Discharge/Time Spent/CCM Time: On hold D/w Kota Guadarrama MD - 12/10/2016 11:26 AM Gabi is a 76-year-old gentleman who is known to me. He was recently diagnosed with pancreatic cancer. He received 1-2 rounds of chemotherapy but had significant irritation with the chemotherapy. He presented 6 days ago and had a port placed via the right subclavian vein. The procedure went uneventfully and he did well following it. He did have chemotherapy through the port 3 days ago. He presented yesterday with some redness overlying the port site. He also has tenderness in the area of erythema but also up into the supraclavicular fossa and up into the neck. He has some pain in the back of the shoulder. Is also noticed swelling in both legs and significant erythema on the right lower leg. This area is also very tender. He had blood cultures drawn in the ER. There is no growth to date. He has had Doppler studies of the lower extremities and of the right upper extremity. There was no evidence of thrombosis. His white blood count has been normal. He has not had any fever. He is currently on Ancef and Vanco. He is also on subcu Vanco 40 mg daily. 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 He has had no drainage from the incision. He thinks the erythema on the lower extremity may also be a little better. I am not sure whether this represents an infection or a reaction to the chemotherapy. We will awaitthe final culture results. We will keep him on the antibiotics for now. We will touch base with his oncologist, Dr. Valles, tomorrow.in this encounter H&P Notes Daren Nur MD - 12/09/2016 1:30 PM EDTFormatting of this note may be different from the original. Daren Nur MD [facility] History and Physical Patient Name: Elbert Espinosa MR #: [id number] : 1940 Admit Date: [id number] Physicians: Jus Allison MD (Family); No ref. provider found (Referring) Perpetual Assessment: Elbert Espinosa is a 76 y.o. 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 follows at [facility] surgery and oncologist dr Valles ) on chemo with recent h/o R chest mediport placement on 12/04/[address] Vences and s/p 2nd round of chemo on 12/07/16 comes to [place] ER with one day increased pain at Mediport site with redness and pain in his shoulder.He is being suspected catheter /site infection. ASSESSMENT AND PLAN: 1. Mediport site infection S/p mediport on 12/04/[address] Vences Presented with increased redness and pain at mediport site Likely postop infection Cultures pending, no signs of SIRS or sepsis Check RUE duplex Received vanco in ER, continue and add ancef Consulted surgery, dr Vences on the board for possible need for port removal 2. COPD Not in exacerbation C/w home inhalers Smoking cessation reinforced 3. Ca pancreas Stage IB involving head and uncinate process measuring 2.1 cm On neoadjuvant chemo with Gemzar and Abraane from 11/16/[address] Valles 4. BPH Without obstruction Says stopped taking alpha rudolph as it was not helping OP urology f/u on discharge 5. Tobacco use Still smokes 1ppd Counseled to quit Refused nicotine patch 6.GERD Stable on PPI, resume 7. Hyponatremia Na 129 on admission Likely from dehydration Gentle hydration and monitor Check urine sodium and urine osmolality 8. Leg swelling Bilateral, R>L Check venous duplex Check BNP 9.DVT prophylaxis SQ lovenox Full code CC: Pain and swelling at mediport site HPI: Elbert Espinosa is a 76 y.o. 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 followsat [facility] surgery and oncologist dr Valles ) on chemo with recent h/o R chest mediport placement on 12/04/[address] Vences and s/p 2nd round of chemo on 12/07/16 comes to [place] ER with one day increased painat Mediport site with redness and pain in his shoulder. Patient says pain is 9/10 , dull to achy in character and denies associated chest pain, fever, cough or shortness of breath. She he is in the process of completing chemo ( 9 cycles, currently finished 2nd last week) prior to having surgery at [facility]. He denies associated abdominal pain, dysuria, diarrhea or blood in stool or urine. ?? PMH/PSH/SH/FH: Past Medical History: Diagnosis Date ??? Arthritis ??? BPH (benign prostatic hyperplasia) ??? Cancer (HCC) skin cancer ??? Cataract ??? Chemotherapy adverse reaction 12/01/2016 has had 2 treatments-- getting port now. Had adverse reaction to zofran after first treatment ??? Chronic diarrhea current problem (07/21/16), stool specimen positive for blood ([facility]) per pt ??? Colon polyps 2010 benign ??? Complication of anesthesia difficulty waking up ??? COPD (chronic obstructive pulmonary disease) (HCC) ??? GERD (gastroesophageal reflux disease) ??? History of stress test ??? Pancreatic cancer (HCC) 11/12 ??? Pancreatic mass Past Surgical History: Procedure Laterality Date ??? APPENDECTOMY ??? CATHETER INSERTION SQPORT N/A 12/04/2016 Procedure: PORT PLACEMENT ; Surgeon: Kota Vences MD; Location: [facility] Main OR; Service: ??? COLONOSCOPY 2009 benign polyps found ??? COLONOSCOPY N/A 07/27/2016 Procedure: COLONOSCOPY; Surgeon: Kota Vences MD; Location: [facility] Endo; Service: ??? PROSTATE BIOPSY ??? [...] ??? Not on file Social History Narrative Living Arrangements: Spouse/significant other Support Systems: Spouse/significant other Functional Status: Independent Allergy Information: I have reviewed the patient's allergies. Ciprofloxacin; Penicillin; Tetracycline; and Zofran (as hydrochloride) [ondansetron hcl] Home Medications: Outpatient Prescriptions as of 12/09/2016 Medication Sig ??? aspirin 81 MG EC tablet Take 1 tablet by mouth daily Reasons: pt states he has not been taking for a couple of weeks. ??? mometasone-formoterol (DULERA) 200-5 mcg/actuation HFAA Inhale 2 puffs 2 (two) times a day. ??? omeprazole (PRILOSEC) 40 MG capsule Take 1 (one) capsule (40 mg total) by mouth daily. ??? oxygen Inhale 2.5 L/min nightly. ??? alfuzosin (UROXATRAL) 10 mg 24 hr [...] FOR 2 DAYS PT NOT TAKING .) ROS: The following system(s) were reviewed. Pertinent positive and negative findings are noted in the HPI. Review of Systems: Review of Systems Constitutional: Negative. Negative for chills, diaphoresis, fatigue, fever and unexpected weight change. HENT: Negative for dental problem, ear pain, facial swelling, rhinorrhea, sinus pressure, sneezing, sore throat and trouble swallowing. Eyes: Negative for pain and visual disturbance. Respiratory: cough. Negative for cough, choking, chest tightness, shortness of breath and wheezing. Cardiovascular: Negative. Negative for chest pain, palpitations and leg swelling. Gastrointestinal: Negative. Negative for abdominal distention, abdominal pain, anal bleeding, bloodin stool, constipation and nausea. Genitourinary: Negative. Negative for difficulty urinating, dysuria and urgency. Musculoskeletal: pain and swelling of legs R>L . Negative for back pain, gait problem, joint swelling, myalgias, neck pain and neck stiffness. Skin: Positive for rash on chest. Negative for wound. Allergic/Immunologic: Negative. Neurological: Negative. Negative for dizziness, seizures, syncope, weakness, light-headedness, numbness and headaches. Psychiatric/Behavioral: Negative. All other systems reviewed and are negative. ? All systems reviewed negative except as mentioned above. ?? PHYSICAL EXAMINATION: Vital Signs: Temp: [98 ??F (36.7 ??C)-98.1 ??F (36.7 ??C)] 98 ??F (36.7 ??C) Heart Rate: [80-95] 85 Resp: [18-20] 19 BP: (132-168)/(58-82) 168/82 GENERAL: Stated patient. NAD HEAD: Normocephalic, atraumatic. EYES: Conjunctiva and sclera clear, EOMI, PERRL ENT: Hearing intact. Pharynx clear. Oral mucosa moist. NECK: No adenopathy or thyromegaly. No JVD CV: RRR, no murmur. No Edema RESP: + R chest mediport area with redness and tenderness ( cellulitic changes) Diminished breath sounds on bases. No rales, rhonchi, wheezes or increase in respiratory effort, no use of acessory muscles noted GI: Non-distended, +BS, soft, non-tender. No guarding, masses or rebound MUSC: No cyanosis, clubbing, ++ b/l leg edema, R>L SKIN: Warm and dry. No rashes. NEURO: Alert, Ox3. Grossly normal motor and sensory exam. No focal deficits PSYCH: Mood and affect are appropriate. Cooperative. LYMPH: No adenopathy Laboratory and Additional Data Acquired or Reviewed: Laboratory Transcriptions Radiology Microbiology Cardiology Outside Records Medications Family Results for orders placed or performed during the hospital encounter of 12/09/16 BMP Result Value Ref Range Sodium 129 (L) 135 - 145 mmol/L Potassium 3.6 3.5 - 5.1 mmol/L Chloride 94 (L) 98 - 108 mmol/L Bicarbonate 29 22 - 34 mmol/L Anion Gap 10 10 - 20 mmol/L Glucose 127 (H) 65 - 99 mg/dL BUN 13 8 - 25 mg/dL Creatinine 0.70 (L) 0.80 - 1.30 mg/dL eGFR 92 >=60 mL/min/1.73 m2 BUN/Creatinine Ratio 18.6 10.0 - 20.0 Calcium 8.5 8.4 - 10.2 mg/dL Light Blue Top Result Value Ref Range Extra Tube Hold for add-ons. Berry Top Result Value Ref Range Extra Tube Hold for add-ons. Gold Top Result Value Ref Range Extra Tube Hold for add-ons. CBC Auto Differential Result Value Ref Range WBC 6.52 4.50 - 11.00 K/mcL RBC 3.81 (L) 4.50 - 5.90 M/mcL Hemoglobin 12.0 (L) 13.5 - 17.5 g/dL Hematocrit 34.5 (L) 41.0 - 53.0 % MCV 90.6 80.0 - 100.0 fL MCH 31.5 26.0 - 34.0 pg MCHC 34.8 31.0 - 37.0 g/dL Platelets 139 (L) 150 - 400 K/mcL RDW - CV 12.6 11.6 - 14.8 % MPV 9.5 9.0 - 15.5 fL Neutrophils 86.8 % Lymphocytes 11.5 % Monocytes 0.3 % Eosinophils 1.2 % Basophils 0.2 % Neutrophils Abs 5.66 1.70 - 7.00 K/mcL Lymphocytes Abs 0.75 (L) 0.90 - 4.00 K/mcL Monocytes Abs 0.02 (L) 0.30 - 0.90 K/mcL Eosinophils Abs 0.08 0.00 - 0.50 K/mcL Basophils Abs 0.01 0.00 - 0.30 K/mcL Nucleated RBC 0.0 % Nucleated RBC Abs 0.00 0.00 - 0.00 K/mcL Results from last 7 days Lab Units 12/09/16 1047 12/07/16 0903 WBC K/mcL 6.52 3.83* HGB g/dL 12.0* 12.4* HCT % 34.5* 36.1* PLT K/mcL 139* 202 MONOS% % 0.3 6.0 Results from last 7 days Lab Units 12/09/16 1047 12/07/16 0903 SODIUM mmol/L 129* 131* POTASSIUM mmol/L 3.6 4.1 CHLORIDE mmol/L 94* 93* BUN mg/dL 13 10 CREATININE mg/dL 0.70* 0.64* GLUCOSE mg/dL 127* 203* CALCIUM mg/dL 8.5 8.7 XR Chest 1 View Final Result No acute disease. Workstation ID: [id number] Ultrasound duplex venous arm right (Results Pending) Ultrasound duplex venous legs bilat (Results Pending) Expected Discharge/Time Spent: Based on current clinical information, the expected discharge date is: day after tomorrow (12/11/2016) in this encounter Miscellaneous Notes Plan of Care - Caterina Ruano, KRISTIE - 12/11/2016 8:43 PM EDTProblem: Breathing Pattern - Ineffective Goal: Effective breathing pattern Outcome: Partially Met 1. Assess respiratory status through observation of chest for excursion, breath sounds, cough effort & sputum production, and respiratory rate. 2. Notify physician of clinical changes. Continue current therapy Plan of Care - Ольга Ybarra, KRISTIE - 12/11/2016 11:04 AM EDTProblem: Breathing Pattern - Ineffective Goal: Effective breathing pattern Outcome: Partially Met 1. Encourage Cough & Deep breathing with use of ordered PAP therapy. 2. Maintain and improve oxygenation through monitoring of SpO2 & may titrate per physician order 3. Monitor Chest X-Ray and breath sounds for changes in chest expansion, atelectasis, & patient status Continue current therapy Assessment & Plan Note - Kiesha Gentile CNP - 12/11/2016 8:35 AM EDT Associated Problem(s): Postoperative infection- Hemodynamics stable, afebrile, on RA - Pain: Tylenol PRN - Continue Activity as tolerated, encouraged ambulation - Continue VTE prophylaxis with Lovenox and ambulation - Continue antibiotics, awaiting final culture resultsSubjective & Objective - Kiesha Gentile CNP - 12/11/2016 8:25 AM EDTFormatting of this note may be different from the original. Subjective/Objective: Perpetual Assessment: HD #4; possible port infection. Patient is feeling fine and wants to go home today. He feels his port site is 100% better and does not need to be here anymore. Not having as muchRLE pain compared to yesterday. Physical Examination: Blood pressure 128/65, pulse 88, temperature 98.1 ??F (36.7 ??C), temperature source Oral, resp. rate 16, height 5' 8, weight 76.2 kg (167 lb 15.9 oz), SpO2 98 %. General: Alert & orientated x 3, cooperative, no distress Chest: Right upper chest port site without erythema or edema; non-tender to palp Extremities: RLE: 1+ edema right ankle and foot; erythema improved compared to yesterday. Mildly tender on palp. LLE: non-tender, no erythema or edema Psych: Mood and affect appropriate Intake/Output last 3 shifts: I/O last 3 completed shifts: In: 2425.3 [P.O.:1210; IV Piggyback:1215.3] Out: 2580 [Urine:2580] Results/Medications Reviewed 12/12/16 8:15 AM: Laboratory, Microbiology and Medications - Laboratory Studies: CBC: Results from last 7 days Lab Units 12/12/16 0502 12/11/1642612/10/169 WBC K/mcL 2.50* 4.53 6.93 HGB g/dL 10.7* 10.4* 11.6* HCT % 30.6* 29.8* 33.1* PLT K/mcL 107* 103* 126* Chem: Results from last 7 days Lab Units 12/12/16 05012/11/1642612/10/1644812/07/16 0903 SODIUM mmol/L 130* 129* 128* < > 131* POTASSIUM mmol/L 3.3* 3.1* 3.6 < > 4.1 CHLORIDE mmol/L 93* 94* 94* < > 93* BUN mg/dL 15 9 10 < > 10 CREATININE mg/dL 0.72* 0.69* 0.65* < > 0.64* CALCIUM mg/dL 8.3* -- 8.4 < > 8.7 TOTAL PROTEIN g/dL -- -- -- -- 6.3 ALK PHOS U/L -- -- -- -- 59 ALT U/L -- -- -- -- 29 AST U/L -- -- -- -- 22 GLUCOSE mg/dL 139* 136* 127* < > 203* < > = values in this interval not displayed. Results from last 7 days Lab Units 12/11/1642612/10/16448 MAGNESIUM mg/dL 1.7 1.7 Blood culture: NGTD (prelim) Venous dopplers: RUE & BLE negative for DVT Plan of Care - Meredith Carbajal, DIAMOND BLENDER - 12/10/2016 8:08 PM EDTProblem: Breathing Pattern - Ineffective Goal: Effective breathing pattern Outcome: Partially Met 1. Assess respiratory status through observation of chest for excursion, breath sounds, cough effort & sputum production, and respiratory rate. 2. Notify physician of clinical changes. Continue current therapy ED Attestation Note - Andrea Olvera MD - 12/10/2016 7:12 AM EDTED Attestation: I have reviewed the non physician practitioner's documentation, personally taken thepatient's history, performed an exam and agree with the physical findings, clinical impression and management plan Patient is a pleasant 76-year-old male who comes into the emergency room with recent port placement. Has developed some redness on the right side of the chest. Likely cellulitis. Tender over this area slightly warm. Agree with admission at this time. Plan of Care - Meredith Carbajal CRT - 12/09/2016 8:34 PM EDTProblem: Breathing Pattern - Ineffective Goal: Effective breathing pattern Outcome: Partially Met 1. Assess respiratory status through observation of chest for excursion, breath sounds, cough effort & sputum production, and respiratory rate. 2. Notify physician of clinical changes. Continue current therapy ED Notes - William Rose, PAT - 12/09/2016 12:17 PM EDTPt is concerned about possible reaction to medication. Pt denies Itching or SOB. No hives or red ness noted by this RN other than the redness to right anterior chest around and below port. GEORGE Birch. Will cont to monitor the pt for sign of reaction.ED Provider Notes - Shirley Park PA-C - 12/09/2016 10:28 AM EDTFormatting of this note may be different from the original. [facility] ED Physician Adolescent Counselor Note: [facility] EMERGENCY DEPARTMENT PCP - Jus Allison MD Chief Complaint Patient presents with ??? Arm Swelling right upper chest /port site swelling HPI The history was obtained from the patient. He is a 76 y.o. male who presents with a chief complaintof Arm Swelling (right upper chest /port site swelling). HPI this is a 76-year-old male who presents here today had a port placed with Dr. Vences inhis right chest on Sunday. He reports that had been doing well he received a round of chemotherapy through his port on . He states that he started feeling pain at his port site and is just gotten progressively worse noticed last night the area became increasingly red. He states that they did not have any problems accessing his port the area was not swollen following his infusion he states he has not had any fevers he otherwise feels fine. He states he called Dr. Vences and was directed to come here. His pain is a 9 out of 10 specifically at the port site its worse with palpation he denies any discharge or drainage from the site. Review of Systems Constitutional: Negative. Negative for chills, diaphoresis, fatigue, fever and unexpected weight change. HENT: Negative for dental problem, ear pain, facial swelling, rhinorrhea, sinus pressure, sneezing, sore throat and trouble swallowing. Eyes: Negative for pain and visual disturbance. Respiratory: Negative. Negative for cough, choking, chest tightness, shortness of breath and wheezing. Cardiovascular: Negative. Negative for chest pain, palpitations and leg swelling. Gastrointestinal: Negative. Negative for abdominal distention, abdominal pain, anal bleeding, bloodin stool, constipation and nausea. Genitourinary: Negative. Negative for difficulty urinating, dysuria and urgency. Musculoskeletal: Negative. Negative for back pain, gait problem, joint swelling, myalgias, neck pain and neck stiffness. Skin: Positive for rash. Negative for wound. Allergic/Immunologic: Negative. Neurological: Negative. Negative for dizziness, seizures, syncope, weakness, light-headedness, numbness and headaches. Psychiatric/Behavioral: Negative. All other systems reviewed and are negative. All systems reviewed negative except as mentioned above. Physical Exam Vital Signs During ED Visit (as charted by nursing) Patient Vitals for the past 24 hrs: BP Temp Temp src Pulse Resp SpO2 Height Weight 12/09/16 1145 132/63 - - - - 96 % - - 12/09/16 1030 135/60 - - - - 97 % - - 12/09/16 1015 (!) 144/58 - - - - 96 % - - 12/09/16 1009 (!) 164/75 98.1 ??F (36.7 ??C) Temporal 95 (!) 20 97 % 5' 8 75.3 kg (166 lb) Physical Exam Constitutional: He appears well-developed and well-nourished. No distress. Cardiovascular: Normal rate and regular rhythm. Pulmonary/Chest: Effort normal and breath sounds normal. He has no decreased breath sounds. He has no wheezes. He has no rhonchi. He exhibits tenderness. He exhibits no bony tenderness and no deformity. See attached picture. Abdominal: Bowel sounds are normal. Neurological: He is alert. Skin: Skin is warm. Capillary refill takes less than 3 seconds. He is not diaphoretic. There is erythema. Nursing note and vitals reviewed. Past Medical History Past Medical History: Diagnosis Date ??? Arthritis ??? BPH (benign prostatic hyperplasia) ??? Cancer (HCC) skin cancer ??? Cataract ??? Chemotherapy adverse reaction 12/01/2016 has had 2 treatments-- getting port now. Had adverse reaction to zofran after first treatment ??? Chronic diarrhea current problem (07/21/16), stool specimen positive for blood ([facility]) per pt ??? Colon polyps 2010 benign ??? Complication of anesthesia difficulty waking up ??? COPD (chronic obstructive pulmonary disease) (HCC) ??? GERD (gastroesophageal reflux disease) ??? History of stress test ??? Pancreatic cancer (HCC) 11/12 ??? Pancreatic mass Past Surgical History Past Surgical History: Procedure Laterality Date ??? APPENDECTOMY ??? CATHETER INSERTION SQPORT N/A 12/04/2016 Procedure: PORT PLACEMENT ; Surgeon: Kota Vences MD; Location: [facility] Main OR; Service: ??? COLONOSCOPY 2010 benign polyps found ??? COLONOSCOPY N/A 07/27/2016 Procedure: COLONOSCOPY; Surgeon: Kota Vences MD; Location: [facility] Endo; Service: ??? PROSTATE BIOPSY ??? SINUS SURGERY 2003 Family History Family History Problem Relation Age of Onset ??? Hypertension Mother ??? Stroke Mother ??? Thyroid disease Mother ??? Cancer Mother lung ??? Cancer Father Lung, malignant neoplasm of the large intestine ??? Cancer Sister colon cancer Social History Social History Social History ??? Marital status: [...] ??? Not on file Social History Narrative Allergies Allergies Allergen Reactions ??? Ciprofloxacin ??? Penicillin ??? Tetracycline ??? Zofran (As Hydrochloride) [Ondansetron Hcl] Hives Itching, hives, shortness of breath, sweating Medications Patient's Medications New Prescriptions No medications on file Previous Medications ALFUZOSIN (UROXATRAL) 10 MG 24 HR TABLET Take 1 tablet (10 mg total) by mouth at bedtime. ASPIRIN 81 MG EC TABLET Take 1 tablet by mouth daily Reasons: pt states he has not been taking for a couple of weeks. DEXAMETHASONE (DECADRON) 4 MG TABLET Take 2 (two) tablets (8 mg total) by mouth 2 (two) times a day with meals START TAKING DAY AFTER CHEMO FOR 2 DAYS. DIPHENOXYLATE-ATROPINE (LOMOTIL) 2.5-0.025 MG PER TABLET Take 1 tablet by mouth 4 (four) times aday as needed for diarrhea. FINASTERIDE (PROSCAR) 5 MG TABLET Take 1 tablet (5 mg total) by mouth daily. FLUOCINONIDE (LIDEX) 0.05 % CREAM Apply topically 2 (two) times a day .5 gm BID to L leg rash for 15 days. HYDROCODONE-ACETAMINOPHEN (NORCO) 5-325 MG PER TABLET Take 1 (one) tablet to 2 (two) tablets by mouth every 6 (six) hours as needed for pain Take with food.. MOMETASONE-FORMOTEROL (DULERA) 200-5 MCG/ACTUATION HFAA Inhale 2 puffs 2 (two) times a day. OCEAN NASAL 0.65 % NASAL SPRAY Instill 2 sprays into each nostril as needed . OMEPRAZOLE (PRILOSEC) 40 MG CAPSULE Take 1 (one) capsule (40 mg total) by mouth daily. OXYGEN Inhale 2.5 L/min nightly. PANCRELIPASE, JZB-BQJZ-SBLE, (CREON) 12,000-38,000 -60,000 UNIT CPDR CAPSULE Take 1 (one) capsule (12,000 units of lipase total) by mouth 3 (three) times a day with meals. PROCHLORPERAZINE (COMPAZINE) 10 MG TABLET Take 1 (one) tablet (10 mg total) by mouth every 6 (six) hours as needed for nausea. Modified Medications No medications on file Discontinued Medications No medications on file Radiographic Imaging (if any) During ED Visit XR Chest 1 View Final Result No acute disease. Workstation ID: [id number] Medications Ordered/Given During ED Visit Medications vancomycin (VANCOCIN) IVPB 1000 mg (premix) (1,000 mg Intravenous New Bag 12/09/16 1112) Procedures I personally reviewed ECG and xrays if performed. Medications were reviewed. ED Course Sitting comfortably; no complaints. MEDICAL DECISION MAKING Patient does not appear septic or toxic. Case was discussed with hospitalist who recommends evaluation with general surgeon as well. Consult placed to Dr. Vences. Results for orders placed or performed during the hospital encounter of 12/09/16 BMP Result Value Ref Range Sodium 129 (L) 135 - 145 mmol/L Potassium 3.6 3.5 - 5.1 mmol/L Chloride 94 (L) 98 - 108 mmol/L Bicarbonate 29 22 - 34 mmol/L Anion Gap 10 10 - 20 mmol/L Glucose 127 (H) 65 - 99 mg/dL BUN 13 8 - 25 mg/dL Creatinine 0.70 (L) 0.80 - 1.30 mg/dL eGFR 92 >=60 mL/min/1.73 m2 BUN/Creatinine Ratio 18.6 10.0 - 20.0 Calcium 8.5 8.4 - 10.2 mg/dL CBC Auto Differential Result Value Ref Range WBC 6.52 4.50 - 11.00 K/mcL RBC 3.81 (L) 4.50 - 5.90 M/mcL Hemoglobin 12.0 (L) 13.5 - 17.5 g/dL Hematocrit 34.5 (L) 41.0 - 53.0 % MCV 90.6 80.0 - 100.0 fL MCH 31.5 26.0 - 34.0 pg MCHC 34.8 31.0 - 37.0 g/dL Platelets 139 (L) 150 - 400 K/mcL RDW - CV 12.6 11.6 - 14.8 % MPV 9.5 9.0 - 15.5 fL Neutrophils 86.8 % Lymphocytes 11.5 % Monocytes 0.3 % Eosinophils 1.2 % Basophils 0.2 % Neutrophils Abs 5.66 1.70 - 7.00 K/mcL Lymphocytes Abs 0.75 (L) 0.90 - 4.00 K/mcL Monocytes Abs 0.02 (L) 0.30 - 0.90 K/mcL Eosinophils Abs 0.08 0.00 - 0.50 K/mcL Basophils Abs 0.01 0.00 - 0.30 K/mcL Nucleated RBC 0.0 % Nucleated RBC Abs 0.00 0.00 - 0.00 K/mcL ED Course Comment By Time Dr. Vences did speak with me this morning and informed me that patient would be coming in and was told that he had redness to the port site and was uncertain whether this was going to be an infection or infiltration of chemo Shirley Park PA-C 12/09 1030 The patient has been informed that they [...] evaluation of possible pre-hypertension or hypertension. . Consult to Dr. Vences; he asks patient be admitted to hospitalist service with consult to him. Consult to Dr. Nur; agrees to accept to Med/Surg. Discussed hyponatremia as well. Patient with no other symptoms. Does not appear septic; cultures pending. VSS. Initiated on Vanco. Diagnosis SNOMED CT(R) 1. Infected venous access port, initial encounter INFECTION OF INTRAVENOUS CATHETER 2. Hyponatremia HYPONATREMIA Follow-up Information Follow-up information has not been specified. New Prescriptions No medications on file I personally reviewed the x-rays and ECG if performed NarxCheck/OARRS score/reporting was reviewed Note: To expedite correspondence this note was generated by [employer] voice recognition software. Some grammatical or spelling errors may occur using the system. Shirley Park PA-C PhysicianAssistant [facility] Emergency Department Patient gave verbal consent for picture to be taken and added to chart. Shirley Park PA-C 12/09/16 1157 ED Triage Notes - Janae Cadet RN - 12/09/2016 10:20 AM EDTReceived chemo on Dec 07, now has redness and tenderness at port site and distal breast tissue.in this encounter Plan of Treatment Upcoming Encounters Date Type Specialty Care Team Description 12/21/2016 Nurse Only Infusion Therapy 12/21/2016 Office Visit Oncology Sherif Valles MD [address] [place] [address] [address] [place], [place] [address] 12/21/2016 Infusion/Injection Infusion Therapy Pending Results Name Priority Associated Diagnoses Date/Time Blood Culture Aerobic/Anaerobic Routine 12/09/2016 10:58 AM EDT Blood Culture Aerobic/Anaerobic Routine 12/09/2016 10:51 AM EDT Ultrasound duplex venous legs Routine 12/10/2016 10:37 AM EDT bilat Scheduled Tests Name Priority Associated Diagnoses Order Schedule CBC Routine Pancytopenia (HCC) 1 Occurrences starting 12/12/2016 until 12/17/2017 Health Maintenance Due Date Last Done Comments TETANUS EVERY 10 YR 1940 ZOSTER VACCINE 2001 PNEUMOCOCCAL VACCINE AGE 65+ (1 of 2 - 2006 PCV13) SEQUENTIAL INFLUENZA VACCINE (#1) 2016 Low-dose CT Lung Cancer Screen 10/16/2017 10/16/2016 COLONOSCOPY 07/27/2021 07/27/2016, 01/12/2010 as of this encounter Implants Implanted Type Area Senior Software Engineering Manager Device Expiration Model / Identifier Date Serial / Lot Port Implanted Mri Isp W/8fr Cath Powerport - [id number] Catheter - Right: BARD PERIP 12/26/2017 [id number] / Implanted: Qty: 1 on 12/04/2016 by Kota Vences MD Implant Subclavian / [id number] as of this encounter Results Magnesium Level (12/12/2016 5:02 AM) Component Value Ref Range Magnesium 1.7 1.6 - 2.4 mg/dL Specimen Performing Laboratory Blood [facility] [address] [place] [address] Basic Metabolic Panel (12/12/2016 5:02 AM) Component Value Ref Range Sodium 130 (L) 135 - 145 mmol/L Potassium 3.3 (L) 3.5 - 5.1 mmol/L Chloride 93 (L) 98 - 108 mmol/L Bicarbonate 29 22 - 34 mmol/L Anion Gap 11 10 - 20 mmol/L Glucose 139 (H) 65 - 99 mg/dL BUN 15 8 - 25 mg/dL Creatinine 0.72 (L) 0.80 - 1.30 mg/dL eGFR 91 >=60 mL/min/1.73 m2 BUN/Creatinine Ratio 20.8 (H) 10.0 - 20.0 Calcium 8.3 (L) 8.4 - 10.2 mg/dL Specimen Performing Laboratory Blood [facility] [address] [place] [address] Narrative The eGFR should be used for monitoring renal function only and not for medication dosing. CBC (12/12/2016 5:02 AM) Component Value Ref Range WBC 2.50 (L) 4.50 - 11.00 K/mcL RBC 3.36 (L) 4.50 - 5.90 M/mcL Hemoglobin 10.7 (L) 13.5 - 17.5 g/dL Hematocrit 30.6 (L) 41.0 - 53.0 % MCV 91.1 80.0 - 100.0 fL MCH 31.8 26.0 - 34.0 pg MCHC 35.0 31.0 - 37.0 g/dL Platelets 107 (L) 150 - 400 K/mcL RDW - CV 12.8 11.6 - 14.8 % MPV 8.8 (L) 9.0 - 15.5 fL Specimen Performing Laboratory Blood [facility] [address] [place] [address] Vancomycin Level, Trough (12/11/2016 10:16 PM) Component Value Ref Range Vancomycin Trough 12.6 5.0 - 20.0 mcg/mL Specimen Performing Laboratory Blood [facility] [address] [place] [address] TSH (12/11/2016 4:27 AM) Component Value Ref Range TSH 0.58 0.32 - 5.00 mcIU/mL Specimen Performing Laboratory Blood [facility] [address] [place] [address] Cortisol, AM (12/11/2016 4:27 AM) Component Value Ref Range Cortisol - AM 8.9 5.0 - 25.0 ug/dL Specimen Performing Laboratory Blood [facility] [address] [place] [address] Magnesium Level (12/11/2016 4:27 AM) Component Value Ref Range Magnesium 1.7 1.6 - 2.4 mg/dL Specimen Performing Laboratory Blood [facility] [address] [place] [address] CBC (12/11/2016 4:27 AM) Component Value Ref Range WBC 4.53 4.50 - 11.00 K/mcL RBC 3.34 (L) 4.50 - 5.90 M/mcL Hemoglobin 10.4 (L) 13.5 - 17.5 g/dL Hematocrit 29.8 (L) 41.0 - 53.0 % MCV 89.2 80.0 - 100.0 fL MCH 31.1 26.0 - 34.0 pg MCHC 34.9 31.0 - 37.0 g/dL Platelets 103 (L) 150 - 400 K/mcL RDW - CV 12.8 11.6 - 14.8 % MPV 9.7 9.0 - 15.5 fL Nucleated RBC 0.0 % Nucleated RBC Abs 0.00 0.00 - 0.00 K/mcL Specimen Performing Laboratory Blood [facility] [address] [place] [address] Chem 7 (12/11/2016 4:27 AM) Component Value Ref Range Sodium 129 (L) 135 - 145 mmol/L Potassium 3.1 (L) 3.5 - 5.1 mmol/L Chloride 94 (L) 98 - 108 mmol/L Bicarbonate 29 22 - 34 mmol/L Creatinine 0.69 (L) 0.80 - 1.30 mg/dL Glucose 136 (H) 65 - 99 mg/dL BUN 9 8 - 25 mg/dL eGFR 93 >=60 mL/min/1.73 m2 BUN/Creatinine Ratio 13.0 10.0 - 20.0 Anion Gap 9 (L) 10 - 20 mmol/L Specimen Performing Laboratory Blood [facility] [address] [place] [address] Narrative The eGFR should be used for monitoring renal function only and not for medication dosing. NT Pro BNP (12/11/2016 4:27 AM) Component Value Ref Range NT-Pro BNP 297 (H) 0 - 125 pg/mL Specimen Performing Laboratory Blood [facility] [address] [place] [address] Narrative Pride Study Cut-offs Rule In: < /= 50 Years?>450 pg/mL 51 Years- 75 Years? >900 pg/mL 76 Years - 99 Years? >1800 pg/mL Rule Out: All patients? <300 pg/mL Sodium, Urine, Random (12/10/2016 2:30 PM) Component Value Ref Range Sodium, Ur 60 mmol/L Specimen Performing Laboratory Urine - Urine, Random [facility] [address] [place] [address] Narrative No established reference range. Osmolality, Urine (12/10/2016 2:30 PM) Component Value Ref Range Osmolality, Ur 357 mOsm/kg Specimen Performing Laboratory Urine - Urine, Random [facility] [address] [place] [address] Narrative No established reference range. Ultrasound duplex venous arm right (12/10/2016 10:36 AM) Specimen Performing Laboratory [facility] [address] [facility] [place] [address] Narrative Non-Invasive Vascular Patient:? FRANCISCA Christina? Med Rec#:?[id number]? (Age): 1940(76y) ? Study Date:?12/10/2016? Room#:? 53? Type:?Inpatient? Sex:? M Reading:?Tristen Silva M.D. Referring:?Daren Nur MD Vaccine Key Customer Leader:?Rachele Mccartney RT (R), RDMS, RVS Procedure Info:? [id number] Reason For Study: Right arm swelling and pain. Study Quality:?Upper Venous Duplex: The technical quality of the study was adequate. Diagnosis: M79.601?Pain in right arm Upper Venous Duplex? Conclusions No evidence of acute deep or superficial vein thrombosis in the right upper extremity. Reason For Study: Right arm swelling and pain.?The procedure was explained to the patient.?The patient voiced understanding.? Finding Grids ? Right Duplex ? Spont? Phasic ?Internal Jugular? Y? Y?Subclavian? Y? Y?Axillary? Y? Y?Brachial? Y? Y?Basilic?_? _?Cephalic? _? _? Augment? Fill? Compressibility ?Internal Jugular? Y? Y?Y?Subclavian? Y? Y?Y?Axillary? Y? Y?Y?Brachial? Y? Y?Y?Basilic?_? _?Y?Cephalic? _? _?Y?Orellana ?--------- ?Y = Yes ? Left Duplex ? Spont? Phasic? Augment? Fill? Compressibility ?Subclavian? Y? Y?Y? Y?Y?Orellana ?--------- ?Y = Yes Electronically signed at 12/12/2016 08:28:55 by: Tristen Silva M.D. Procedure Note Interface, Rad In [facility] Echopacs - 12/12/2016 8:33 AM EDT Non-Invasive Vascular Patient: FRANCISCA Christina [facility] Rec#: [id number] (Age): 1940(76y) Study Date: 12/10/2016 Room#: 53 Type: Inpatient Sex: M Reading: Tristen Silva M.D. Referring: Daren Nur MD Vaccine Key Customer Leader: Rachele Mccartney RT (R), RDMS, RVS Procedure Info: [id number] Reason For Study: Right arm swelling and pain. Study Quality: Upper Venous Duplex: The technical quality of the study was adequate. Diagnosis: M79.601 Pain in right arm Upper Venous Duplex Conclusions No evidence of acute deep or superficial vein thrombosis in the right upper extremity. Reason For Study: Right arm swelling and pain. The procedure was explained to the patient. The patient voiced understanding. Finding Grids Right Duplex Spont Phasic Internal Jugular Y Y Subclavian Y Y Axillary Y Y Brachial Y Y Basilic _ _ Cephalic _ _ Augment Fill Compressibility Internal Jugular Y Y Y Subclavian Y Y Y Axillary Y Y Y Brachial Y Y Y Basilic _ _ Y Cephalic _ _ Y Orellana --------- Y = Yes Left Duplex Spont Phasic Augment Fill Compressibility Subclavian Y Y Y Y Y Orellana --------- Y = Yes Electronically signed at 12/12/2016 08:28:55 by: Tristen Silva M.D. CBC (12/10/2016 4:49 AM) Component Value Ref Range WBC 6.93 4.50 - 11.00 K/mcL RBC 3.66 (L) 4.50 - 5.90 M/mcL Hemoglobin 11.6 (L) 13.5 - 17.5 g/dL Hematocrit 33.1 (L) 41.0 - 53.0 % MCV 90.4 80.0 - 100.0 fL MCH 31.7 26.0 - 34.0 pg MCHC 35.0 31.0 - 37.0 g/dL Platelets 126 (L) 150 - 400 K/mcL RDW - CV 12.6 11.6 - 14.8 % MPV 9.5 9.0 - 15.5 fL Specimen Performing Laboratory Blood [facility] [address] [place] [address] Magnesium (12/10/2016 4:49 AM) Component Value Ref Range Magnesium 1.7 1.6 - 2.4 mg/dL Specimen Performing Laboratory Blood [facility] [address] [place] [address] Phosphorus (12/10/2016 4:49 AM) Component Value Ref Range Phosphorus 3.5 2.3 - 3.7 mg/dL Specimen Performing Laboratory Blood [facility] [address] [place] [address] Basic Metabolic Panel (12/10/2016 4:49 AM) Component Value Ref Range Sodium 128 (L) 135 - 145 mmol/L Potassium 3.6 3.5 - 5.1 mmol/L Chloride 94 (L) 98 - 108 mmol/L Bicarbonate 26 22 - 34 mmol/L Anion Gap 12 10 - 20 mmol/L Glucose 127 (H) 65 - 99 mg/dL BUN 10 8 - 25 mg/dL Creatinine 0.65 (L) 0.80 - 1.30 mg/dL eGFR 95 >=60 mL/min/1.73 m2 BUN/Creatinine Ratio 15.4 10.0 - 20.0 Calcium 8.4 8.4 - 10.2 mg/dL Specimen Performing Laboratory Blood [facility] [address] [place] [address] Narrative The eGFR should be used for monitoring renal function only and not for medication dosing. XR Chest 1 View (12/09/2016 11:08 AM) Specimen Performing Laboratory [facility] Impressions No acute disease. Workstation ID:? [id number] Narrative EXAMINATION: XR CHEST PA/AP HISTORY: Chest pain, chest wall infection, recent port placement. COMPARISON: 12/04/2016. FINDINGS: Portable upright chest radiograph obtained.?No change in right chest port with tip in SVC.?No consolidative airspace disease, effusion or pneumothorax.?Heart size and pulmonary vascularity are normal.?No acute osseous abnormality. Procedure Note Interface, Rad In [employer] - 12/09/2016 11:24 AM EDT EXAMINATION: XR CHEST PA/AP HISTORY: Chest pain, chest wall infection, recent port placement. COMPARISON: 12/04/2016. FINDINGS: Portable upright chest radiograph obtained. No change in right chest port with tip in SVC. No consolidative airspace disease, effusion or pneumothorax. Heart size and pulmonary vascularity are normal. No acute osseous abnormality. IMPRESSION: No acute disease. Workstation ID: [id number] Gold Top (12/09/2016 10:51 AM) Component Value Ref Range Extra Tube Hold for add-ons.Comment: Auto resulted. Specimen Performing Laboratory Blood [facility] [address] [place] [address] [place] Draw (12/09/2016 10:51 AM) Specimen Performing Laboratory Blood Narrative The following orders were created for panel order [place] Draw. Procedure? Abnormality? Status? ---------? ------? [facility][[id number]]? Final result? Please view results for these tests on the individual orders. Berry Top (12/09/2016 10:47 AM) Component Value Ref Range Extra Tube Hold for add-ons.Comment: Auto resulted. Specimen Performing Laboratory Blood [facility] [address] [place] [address] Light Blue Top (12/09/2016 10:47 AM) Component Value Ref Range Extra Tube Hold for add-ons.Comment: Auto resulted. Specimen Performing Laboratory Blood [facility] [address] [place] [address] [place] Draw (12/09/2016 10:47 AM) Specimen Performing Laboratory Blood Narrative The following orders were created for panel order [place] Draw. Procedure? Abnormality? Status? ---------? ------? Light Blue Top[[id number]]? Final result? [facility][[id number]]? Final result? Please view results for these tests on the individual orders. CBC Auto Differential (12/09/2016 10:47 AM) Component Value Ref Range WBC 6.52 4.50 - 11.00 K/mcL RBC 3.81 (L) 4.50 - 5.90 M/mcL Hemoglobin 12.0 (L) 13.5 - 17.5 g/dL Hematocrit 34.5 (L) 41.0 - 53.0 % MCV 90.6 80.0 - 100.0 fL MCH 31.5 26.0 - 34.0 pg MCHC 34.8 31.0 - 37.0 g/dL Platelets 139 (L) 150 - 400 K/mcL RDW - CV 12.6 11.6 - 14.8 % MPV 9.5 9.0 - 15.5 fL Neutrophils 86.8 % Lymphocytes 11.5 % Monocytes 0.3 % Eosinophils 1.2 % Basophils 0.2 % Neutrophils Abs 5.66 1.70 - 7.00 K/mcL Lymphocytes Abs 0.75 (L) 0.90 - 4.00 K/mcL Monocytes Abs 0.02 (L) 0.30 - 0.90 K/mcL Eosinophils Abs 0.08 0.00 - 0.50 K/mcL Basophils Abs 0.01 0.00 - 0.30 K/mcL Nucleated RBC 0.0 % Nucleated RBC Abs 0.00 0.00 - 0.00 K/mcL Specimen Performing Laboratory Blood [facility] [address] [place] [address] BMP (12/09/2016 10:47 AM) Component Value Ref Range Sodium 129 (L) 135 - 145 mmol/L Potassium 3.6 3.5 - 5.1 mmol/L Chloride 94 (L) 98 - 108 mmol/L Bicarbonate 29 22 - 34 mmol/L Anion Gap 10 10 - 20 mmol/L Glucose 127 (H) 65 - 99 mg/dL BUN 13 8 - 25 mg/dL Creatinine 0.70 (L) 0.80 - 1.30 mg/dL eGFR 92 >=60 mL/min/1.73 m2 BUN/Creatinine Ratio 18.6 10.0 - 20.0 Calcium 8.5 8.4 - 10.2 mg/dL Specimen Performing Laboratory Blood [facility] [address] [place] [address] Narrative The eGFR should be used for monitoring renal function only and not for medication dosing. CBC w/ Diff (12/09/2016 10:47 AM) Specimen Performing Laboratory Blood Narrative The following orders were created for panel order CBC w/ Diff. Procedure? Abnormality? Status? ---------? ------? CBC Auto Differential[[id number]]?Abnormal?Final result? Please view results for these tests on the individual orders. in this encounter Visit Diagnoses Diagnosis Postoperative infection - Primary Other postoperative infection Infected venous access port, initial encounter Hyponatremia Hyposmolality and/or hyponatremia Infection of central venous catheter insertion site, initial encounter Other emphysema (HCC) Other emphysema Pure hypercholesterolemia Tobacco use Pancytopenia (HCC) Chronic obstructive pulmonary disease (HCC) Pancreatic cancer (HCC) Malignant neoplasm of pancreas, part unspecified in this encounter Administered Medications Inactive Administered Medications - up to 3 most recent administrations Medication Order MAR Action Action Date Dose Rate Site acetaminophen (TYLENOL) tablet 650 Given 12/11/2016 01:03 EDT 650 mg mg 650 mg, Oral, Every 4 hours PRN, mild pain, fever 100.4 F or greater, headaches, Starting 12/09/16 at 1315 Given 12/11/2016 11:50 EDT 650 mg Given 12/11/2016 22:02 EDT 650 mg aspirin EC tablet 81 mg Given 12/10/2016 12:31 EDT 81 mg 81 mg, Oral, Daily, First dose on 12/10/16 at 0900, DO NOT CRUSH OR CHEW. Given 12/11/2016 09:24 EDT 81 mg Given 12/12/2016 08:12 EDT 81 mg budesonide-formoterol (SYMBICORT) 160-4.5 Given 12/10/2016 19:55 EDT 2 puffs mcg/actuation inhaler 2 puff 2 puff, Inhalation, 2 times daily (RT), First dose on 12/09/16 at 2000 Given 12/11/2016 07:15 EDT 2 puffs Given 12/11/2016 20:39 EDT 2 puffs ceFAZolin (ANCEF) IVPB 2 g (premix) Rate/Dose Change 12/12/2016 08:45 EDT 5 mL/hr 2,000 mg, Intravenous, at 200 mL/hr, Every 8 hours, First dose on 12/09/16 at 1730, Indication: Community Acquired Cellulitis Rate/Dose Change 12/12/2016 08:56 EDT 200 mL/hr Rate/Dose Change 12/12/2016 09:02 EDT 5 mL/hr enoxaparin (LOVENOX) syringe 40 mg Given 12/11/2016 09:24 EDT 40 mg 40 mg, Subcutaneous, Daily, First dose on 12/11/16 at 0800, Administer in abdomen unless otherwise directed by prescriber. Notify physician if patient refuses. Given 12/12/2016 08:12 EDT 40 mg enoxaparin (LOVENOX) syringe 80 mg Given 12/09/2016 21:17 EDT 80 mg 80 mg (rounded from 76.2 mg = 1 mg/kg ? 76.2 kg), Subcutaneous, Every 12 hours, First dose on 12/09/16 at 2100, Administer in abdomen unless otherwise directed by prescriber. Notify physician if patient refuses. furosemide (LASIX) injection 40 mg Given 12/11/2016 09:24 EDT 40 mg 40 mg, Intravenous, 2 times daily, First dose on 12/10/16 at 1215, For 3 doses Given 12/11/2016 17:32 EDT 40 mg Given 12/12/2016 08:12 EDT 40 mg ipratropium-albuterol (DUO-NEB) 0.5-2.5 mg/3 ml Given 12/11/2016 07:15 EDT 3 mL nebulizer solution 3 mL 3 mL, Inhalation, 4 times daily (RT), First dose on 12/09/16 at 1600 Given 12/11/2016 11:01 EDT 3 mL Given 12/11/2016 20:39 EDT 3 mL pantoprazole (PROTONIX) EC tablet 40 mg Given 12/09/2016 21:17 EDT 40 mg 40 mg, Oral, Nightly, First dose on 12/09/16 at 2100, DO NOT CRUSH OR CHEW. Given 12/10/2016 21:01 EDT 40 mg Given 12/11/2016 22:02 EDT 40 mg potassium chloride SA (K-DUR,KLOR-CON) CR Given 12/11/2016 09:23 EDT 40 mEq tablet 40 mEq 40 mEq, Oral, Once, 12/11/16 at 0815, For 1 dose, DO NOT CRUSH OR CHEW sodium chloride 0.9% (NS) Rate/Dose Verify 12/10/2016 10:30 EDT 100 mL/hr 100 mL/hr 100 mL/hr, Intravenous, Continuous, Starting 12/09/16 at 1545, For 2 days Rate/Dose Verify 12/10/2016 11:30 EDT 100 mL/hr 100 mL/hr Rate/Dose Verify 12/10/2016 13:34 EDT 100 mL/hr 100 mL/hr vancomycin (VANCOCIN) 1,250 mg in New Bag 12/11/2016 10:42 EDT 1,250 mg 250 mL/hr sodium chloride 0.9 % (NS) 250 mL IVPB 1,250 mg, Intravenous, at 250 mL/hr, Every 12 hours, First dose on 12/09/16 at 2300, Indication: OTHER New Bag 12/11/2016 22:08 EDT 1,250 mg 250 mL/hr Rate/Dose Verify 12/11/2016 23:12 EDT 250 mL/hr vancomycin (VANCOCIN) IVPB 1000 mg New Bag 12/09/2016 11:12 EDT 1,000 mg 200 mL/hr (premix) 1,000 mg, Intravenous, at 200 mL/hr, Once, 12/09/16 at 1050, For 1 dose, Indication: OTHER in this encounter Insurance Payer Benefit Plan / Group Subscriber ID Type Phone Address HUMANA MANAGED MEDICARE HUMANA [facility] GOLD PLUS O [id number] [facility]/JESSICA 80% [facility] [id number] Home: [address] [place], [place] [phone] [place] [phone] as of this encounter
--- OUTSIDE RECORDS SUMMARY | 2018-05-19 09:08 | XMS RPT_ITS | Summary of Care ---
:1940 Author Organization [facility] Address [address] [place] [address] Phone Care Team Providers Name Role Phone Jus Allison MD Primary Care Provider Sherif Valles MD Unavailable Varsha Pineda [facility]IE[facility] Unavailable Fran Burris MD Unavailable Inder Guillen MD Unavailable Reason for Visit Reason Comments Follow-up Encounter Details Date Type Department Care Team Description 12/28/2016 Office Visit [facility] Cancer & Inder Guillen MD Malignant neoplasm of [facility] [address] head of pancreas (HCC) [address] [facility] [address] (Primary Dx) [address] [place] [address] [phone] Allergies Active Allergy Reactions Severity Noted Date [...] Vital Sign Reading Time Taken Blood Pressure 160/70 12/28/2016 2:27 PM EDT Pulse 80 12/28/2016 2:27 PM EDT Temperature - - Respiratory Rate - - Oxygen Saturation - - Inhaled Oxygen Concentration - - Weight 74.9 kg (165 lb 3.2 oz) 12/28/2016 2:27 PM EDT Height - - Body Mass Index 25.12 12/28/2016 2:27 PM EDT in this encounter Progress Notes Inder Guillen MD - 12/28/2016 2:40 PM EDTFormatting of this note may be different from the original. Subjective Patient ID: Elbert Canales is a 76 y.o. male. HPI 76-year-old male diagnosed with pancreatic cancer T2 N0 M0 who underwent 1 cycle of Gemzar and Abraxane. He has not tolerated this well he sent over by his legs are swollen he is currently on steroidsand he has had multiple issues after 1 cycle of his medical oncology for evaluation for upfront Whipple procedure. Gemzar and Abraxane. He presents today with his . The following portions of the patient's history were reviewed and updated as appropriate: allergies,current medications, past family history, past medical history, past social history, past surgical history and problem list. Past Medical History: Diagnosis Date ??? Arthritis ??? BPH (benign prostatic hyperplasia) ??? Cancer (HCC) skin cancer ??? Cataract ??? Chemotherapy adverse reaction 12/01/2016 has had 2 treatments-- getting port now. Had adverse reaction to zofran after first treatment ??? Chronic diarrhea current problem (07/21/16), stool specimen positive [facility] blood ([facility]) per pt ??? Colon polyps 2010 benign ??? Complication of anesthesia difficulty waking up ??? COPD (chronic obstructive pulmonary disease) (HCC) ??? GERD (gastroesophageal reflux disease) ??? History of stress test ??? Pancreatic cancer (HCC) 11/12 ??? Pancreatic mass Past Surgical History: Procedure Laterality Date ??? APPENDECTOMY ??? CATHETER INSERTION SQPORT N/A 12/04/2016 Procedure: PORT PLACEMENT ; Surgeon: Kota Vences MD; Location: [facility] Main OR; Service: ??? COLONOSCOPY 2010 benign polyps found ??? COLONOSCOPY N/A 07/27/2016 Procedure: COLONOSCOPY; Surgeon: Kota Vences MD; Location: [facility] Endo; Service: ??? PROSTATE BIOPSY ??? SINUS SURGERY 2003 Current Outpatient Prescriptions: ??? furosemide (LASIX) 20 MG tablet, Take 1 (one) tablet (20 mg total) by mouth 2 (two) times a day., Disp: 60 tablet, Rfl: 0 ??? methylPREDNISolone (MEDROL DOSEPACK) 4 mg tablet, Reasons: PT has at home, but not taking at this time., Disp: , Rfl: ??? mometasone-formoterol (DULERA) 200-5 mcg/actuation HFAA, Inhale 2 puffs 2 (two) times a day., Disp: , Rfl: ??? omeprazole (PRILOSEC) 40 MG capsule, Take 1 (one) capsule (40 mg total) by mouth daily., Disp: 30 capsule, Rfl: 11 ??? oxygen, Inhale 2.5 L/min nightly., Disp: , Rfl: ??? aspirin 81 MG EC tablet, Take 1 tablet by mouth daily ., Disp: , Rfl: ??? diphenhydrAMINE (BENADRYL) 25 mg capsule, Take 25 mg by mouth every 6 (six) hours as needed foritching., Disp: , Rfl: Review of Systems Constitutional: Negative for chills, diaphoresis, fatigue and fever. HENT: Negative. Eyes: Negative. Respiratory: Negative for cough, choking, chest tightness, shortness of breath, wheezing and stridor. Cardiovascular: Negative for chest pain, palpitations and leg swelling. Gastrointestinal: Negative for abdominal distention, abdominal pain and diarrhea. Endocrine: Negative. Genitourinary: Negative. Musculoskeletal: Negative for joint swelling and myalgias. Skin: Negative. Allergic/Immunologic: Negative. Neurological: Negative. Hematological: Negative. Psychiatric/Behavioral: Negative. Objective Physical Exam Constitutional: He is oriented to person, place, and time. He appears well- developed. No distress. HENT: Mouth/Throat: No oropharyngeal exudate. Eyes: Conjunctivae are normal. Pupils are equal, round, and reactive to light. No scleral icterus. Neck: Normal range of motion. Neck supple. No JVD present. No tracheal deviation present. No thyromegaly present. Cardiovascular: Normal rate, regular rhythm and intact distal pulses. Exam reveals no gallop and nofriction rub. No murmur heard. Pulmonary/Chest: Effort normal and breath sounds normal. No respiratory distress. He has no wheezes.He has no rales. Abdominal: Soft. Bowel sounds are normal. He exhibits no distension and no mass. There is no tenderness. There is no rebound and no guarding. Musculoskeletal: Normal range of motion. He exhibits no edema or tenderness. Lymphadenopathy: He has no cervical adenopathy. Neurological: He is alert and oriented to person, place, and time. Skin: Skin is warm and dry. No rash noted. He is not diaphoretic. Psychiatric: He has a normal mood and affect. His behavior is normal. Judgment normal. Vitals reviewed. Assessment/Plan: 76-year-old male who has not tolerated neoadjuvant chemotherapy. I recommended a repeat CAT scan chest abdomen pelvis with IV contrast as well as a new CA-19-9. Assuming there is no progression disease or metastatic disease will proceed with a Whipple procedure. Possible portal vein resection. I discussed in detail the risk benefit in terms of procedure with the patient is . Of code mortality less than 3%, morbidity of 30-40%. All questions been answered to satisfaction. Over 30 minutes of gbjx-mw-tlru encounter has been spent describing diagnosis prognosis and treatment of pancreatic cancer. Diagnoses and all orders for this visit: Malignant neoplasm of head of pancreas (HCC) in this encounter Plan of Treatment Upcoming Encounters Date Type Specialty Care Team Description 01/03/2017 Appointment Radiology Inder Guillen MD [address] [address] [phone] 01/04/2017 Nurse Only Infusion Therapy Sherif Valles MD [address] [address] [phone] 01/04/2017 Office Visit Oncology Sherif Valles MD [address] [phone] 01/04/2017 Infusion/Injection Infusion Therapy Sherif Valles MD [address] [id number] Scheduled Tests Name Priority Associated Diagnoses Order Schedule CA 19-9 Routine Malignant neoplasm of head of 1 Occurrences starting 12/28/2016 pancreas (HCC) until 12/29/2017 Health Maintenance Due Date Last Done Comments TETANUS EVERY 10 YR 1940 ZOSTER VACCINE 2001 PNEUMOCOCCAL VACCINE AGE 65+ (1 of 2 - 2006 PCV13) SEQUENTIAL INFLUENZA VACCINE (#1) 2016 Low-dose CT Lung Cancer Screen 10/16/2017 10/16/2016 COLONOSCOPY 07/27/2021 07/27/2016, 01/12/2010 as of this encounter Implants Implanted Type Area Salon/Spa Manager Device Expiration Model / Identifier Date Serial / Lot Port Implanted Mri Isp W/8fr Cath Powerport - [id number] Catheter - Right: BARD PERIP 12/26/2017 [id number] / Implanted: Qty: 1 on 12/04/2016 by Kota Vences MD Implant Subclavian / [id number] as of this encounter Visit Diagnoses Diagnosis Malignant neoplasm of head of pancreas (HCC) - Primary Malignant neoplasm of head of pancreas in this encounter Insurance Payer Benefit Plan / Group Subscriber ID Type Phone Address HUMANA MANAGED MEDICARE HUMANA M[employer] GOLD PLUS HMO [id number] [facility]/JESSICA 80% JESSICA [id number] [phone] [place] [phone] as of this encounter
--- OUTSIDE RECORDS SUMMARY | 2018-05-19 09:08 | XMS RPT_ITS | Summary of Care ---
:1940 Author Organization [facility] Address [address] [place] [address] Phone Care Team Providers Name Role Phone Jus Allison MD Primary Care Provider Sherif Valles MD Unavailable Varsha Pineda [facility] Unavailable Fran Burris MD Unavailable Reason for Visit Reason Comments Pancreatic Cancer Encounter Details Date Type Department Care Team Description 12/07/2016 Office Visit [facility] Sherif Valles MD Encounter for Center Oncology 801 [facility] antineoplastic Clinic [address] chemotherapy (Primary [address] [place] [address] Dx);[place] [address] of head of pancreas [phone] (HCC);Chemotherapy follow-up examination Allergies Active Allergy Reactions Severity Noted Date [...] (DULERA) 200-5 2 (two) times a mcg/actuation . finasteride (PROSCAR) 5 Take 1 tablet 30 [...] (one) 90 capsule 0 08/07/2016 08/07/2017 Active Tjo-Tqkb-Mkix, (CREON) capsule (12,000 12,000-38,000 -60,000 units of [...] Vital Sign Reading Time Taken Blood Pressure 163/67 12/07/2016 9:08 AM EDT Pulse 83 12/07/2016 9:08 AM EDT Temperature 36.2 ??C (97.2 ??F) 12/07/2016 9:08 AM EDT Respiratory Rate - - Oxygen Saturation - - Inhaled Oxygen Concentration - - Weight 75.5 kg (166 lb 6.4 oz) 12/07/2016 9:08 AM EDT Height - - Body Mass Index 25.3 12/07/2016 9:08 AM EDT in this encounter Progress Notes Sherif Valles MD - 12/07/2016 8:59 AM EDTFormatting of this note may be different from the original. [facility] [address] [place] [address] [phone] Hematology and Oncology Progress Note Patient Name: Elbert Canales MR #: [id number] : @ [facility] #: [id number] Date of Service: 12/07/16 Clinician: Sherif Valles MD Diagnosis: Pancreatic cancer, stage IB (T2N0M0), head and uncinate process, 2.1 cm, Dx-10/31/2016. Treatment: Neoadjuvant chemotherapy with Gemzar and Abraxane (d1,8,08x05mzxr) started 11/16/16. Chief Complaint: Follow up, pancreatic [...] Colonic diverticulosis without evidence of diverticulitis. 7. Ogoa-ba-wqrfvsmy constipation. 8. Moderate prostatomegaly. MRI Abdomen on [...] on 10/31/2016, by Dr. Partha Muñoz at [place] which showed a mass in thepancreatic head [...] and CMP profile, CA 19-9 at 345. Labs today with the CMP. Sodium 131, glucose 203, otherwise, unremarkable. CBC with a WBC 3.83, ANC 2030, hemoglobin 12.4, platelet 202. He is here for followup for evaluation. His rash is resolved but said that after the last chemo with 12 mg of Decadron IV he did not sleep for 2 days. He also did not take outpatient Decadron tablet. He denied any nausea, vomiting, fever, chills. He does not like to take the outpatient Decadron and further wants to cut down the IV Decadron as much as possible. Assessment/Plan: Pancreatic cancer (adenocarcinoma), involving pancreatic head [...] reaction with itching, rash, and minimal low-grade fever, and Zofran was suspected as the culprit. Subsequently, it was changed to Decadron 12 mg IV pre-chemo and then day 2 and 3 Decadronof 8 mg twice a day for delayed nausea. He did not take outpatient Decadron, as he claimed that he did not have any more nausea and he could not sleep for 2 days because of the IV Decadron. He had Medi port placement done now. Today, I reviewed the lab and will plan to give day 15 of cycle 1 of chemo today. I have decreased the Decadron to 6 mg IV before chemo and I have advised to take Compazine as needed proactively for any nausea. We will plan to see him back in about 2 weeks, with a repeat CBC, CMP. He was advised tocall the clinic early for any questions or concern. The patient and his voiced understanding with [...] No dysurea. Musculoskeletal: no joint pains Skin: no rash Neurologic: No headaches Psychiatric: No depression Hematology: [...] no cyanosis. Mild ankle edema. Skin: no rash Neuro: alert, oriented, no focal deficits, speech normal. Psych: Pt has a normal mood and affect. Vital Signs: BP (!) 163/67 (BP Location: Right arm) Pulse 83 Temp 97.2 ??F (36.2 ??C) (Temporal) Wt 75.5 kg (166 lb 6.4 oz) BMI 25.3 kg/m2 Last Height and Weight with BMI: 75.5 kg (166 lb 6.4 oz) Body mass index is 25.3 kg/(m^2). PMH/PSH/FH/SH: Past Medical History: Diagnosis Date ??? Arthritis ??? BPH (benign prostatic hyperplasia) ??? Cancer (HCC) skin cancer ??? Cataract ??? Chemotherapy adverse reaction 12/01/2016 has had 2 treatments-- getting port now. Had adverse reaction to zofran after first treatment ??? Chronic diarrhea current problem (07/21/16), stool specimen positive for blood ([facility]) per pt ??? Colon polyps 2010 benign ??? Complication of anesthesia difficulty waking up ??? COPD (chronic obstructive pulmonary disease) (HCC) ??? GERD (gastroesophageal reflux disease) ??? History of stress test ??? Pancreatic cancer (HCC) 11/12 ??? Pancreatic mass Past Surgical History: Procedure Laterality Date ??? APPENDECTOMY ??? CATHETER INSERTION SQPORT N/A 12/04/2016 Procedure: PORT PLACEMENT ; Surgeon: Kota Vences MD; Location: [facility] Main OR; Service: ??? COLONOSCOPY 2010 benign polyps found ??? COLONOSCOPY N/A 07/27/2016 Procedure: COLONOSCOPY; Surgeon: Kota Vences MD; Location: [facility] Endo; Service: ??? PROSTATE BIOPSY ??? SINUS [...] times a day. 01/11/12 Historical Provider, MD OCEAN NASAL 0.65 % nasal spray Instill 2 sprays into each nostril as needed . 09/25/15 Historical Provider, omeprazole (PRILOSEC) 40 MG capsule Take 1 (one) capsule (40 mg total) by mouth daily. 08/18/16 08/18/17 Jus Allison MD oxygen Inhale 2.5 L/min nightly. Historical Provider, pancrelipase, Dth-Fkdg-Myai, (CREON) 12,000-38,000 -60,000 unit CpDR capsule Take 1 (one) capsule (12,000 units of lipase total) by mouth 3 (three) times a day with meals. 08/07/16 08/07/17 Jus Allison MD LABS: Pertinent latest labs reviewed in EMR and discussed with patient. WBC Date Value Ref Range Status 12/07/2016 3.83 (L) 4.50 - 11.00 K/mcL Final 07/07/2014 5.35 4.50 - 11.00 K/MCL RBC Date Value Ref Range Status 12/07/2016 3.94 (L) 4.50 - 5.90 M/mcL Final 07/07/2014 4.73 4.50 - 5.90 M/MCL Hemoglobin Date Value Ref Range Status 12/07/2016 12.4 (L) 13.5 - 17.5 g/dL Final 07/07/2014 15.3 13.5 - 17.5 G/DL Hematocrit Date Value Ref Range Status 12/07/2016 36.1 (L) 41.0 - 53.0 % Final 07/07/2014 45.2 41.0 - 53.0 % MCV Date Value Ref Range Status 12/07/2016 91.6 80.0 - 100.0 fL Final 07/07/2014 95.6 80.0 - 100.0 FL MCH Date Value Ref Range Status 12/07/2016 31.5 26.0 - 34.0 pg Final 07/07/2014 32.3 26.0 - 34.0 PG MCHC Date Value Ref Range Status 12/07/2016 34.3 31.0 - 37.0 g/dL Final Platelets Date Value Ref Range Status 12/07/2016 202 150 - 400 K/mcL Final RDW Date Value Ref Range Status 07/07/2014 12.5 11.6 - 14.8 % RDW - CV Date Value Ref Range Status 12/07/2016 12.7 11.6 - 14.8 % Final Sodium Date Value Ref Range Status 12/07/2016 131 (L) 135 - 145 mmol/L Final 07/07/2014 136 135 - 145 MMOL/L Potassium Date Value Ref Range Status 12/07/2016 4.1 3.5 - 5.1 mmol/L Final 07/07/2014 4.4 3.5 - 5.1 MMOL/L Chloride Date Value Ref Range Status 12/07/2016 93 (L) 98 - 108 mmol/L Final 07/07/2014 98 98 - 108 MMOL/L Bicarbonate Date Value Ref Range Status 12/07/2016 25 21 - 32 mmol/L Final 07/07/2014 28 21 - 32 MMOL/L Anion Gap Date Value Ref Range Status 12/07/2016 17 10 - 20 mmol/L Final Glucose Date Value Ref Range Status 12/07/2016 203 (H) 65 - 99 mg/dL Final 07/07/2014 94 65 - 99 MG/DL BUN Date Value Ref Range Status 12/07/2016 10 8 - 25 mg/dL Final 07/07/2014 12 8 - 25 MG/DL Creatinine Date Value Ref Range Status 12/07/2016 0.64 (L) 0.80 - 1.30 mg/dL Final 10/05/2016 0.7 (L) 0.8 - 1.3 mg/dL Final Serum Creatinine Date Value Ref Range Status 01/11/2012 0.9 0.8 - 1.3 MG/DL eGFR Date Value Ref Range Status 12/07/2016 96 >=60 mL/min/1.73 m2 Final GFR, Non Date Value Ref Range Status 01/11/2012 >60 >60 Comment: Test Units:mL/min/1.73m2 This Calculation is for Non Patients BUN/Creatinine Ratio Date Value Ref Range Status 12/07/2016 15.6 10.0 - 20.0 Final BUN/Creat Ratio Date Value Ref Range Status 07/07/2014 15.0 10.0 - 20.0 Comment: The above 18 analytes were performed by [address],[place] [address] Ordered on: 07/07/2014, EMMA ALLISON Tests Performed at: [facility] (Unless Otherwise Specified) [address] [place] [address], [place], [address] - [facility] #[id number] [facility] - Order ID:[id number] Sample ID:[id number] Total Protein Date Value Ref Range Status 12/07/2016 6.3 6.0 - 8.0 g/dL Final Albumin Date Value Ref Range Status 12/07/2016 3.5 3.2 - 5.2 g/dL Final Calcium Date Value Ref Range Status 12/07/2016 8.7 8.4 - 10.2 mg/dL Final 07/07/2014 10.0 8.4 - 10.2 MG/DL Alkaline Phosphatase Date Value Ref Range Status 12/07/2016 59 40 - 150 U/L Final AST Date Value Ref Range Status 12/07/2016 22 0 - 45 U/L Final ALT Date Value Ref Range Status 12/07/2016 29 0 - 40 U/L Final Total Bilirubin Date Value Ref Range Status 12/07/2016 0.3 0.0 - 1.3 mg/dL Final Diagnostic Tests: Pertinent available radiologic studies were reviewed. Follow Up: Return in about 2 weeks (around 12/21/2016) for Office Visit, Infusion - See Treatment Plan, Labs - See Treatment Plan. No orders of the defined types were placed in this encounter. ? Sherif Valles MD [facility] [address], [address] [place] [address] [phone] [phone] CC: MD Inder Fink MD in this encounter Plan of Treatment Upcoming Encounters Date Type Specialty Care Team Description 12/21/2016 Nurse Only Infusion Therapy 12/21/2016 Office Visit Oncology Sherif Valles MD [address] [place] [address] [place] [address] 12/21/2016 Infusion/Injection Infusion Therapy Health Maintenance Due Date Last Done Comments TETANUS EVERY 10 YR 1940 ZOSTER VACCINE 2001 PNEUMOCOCCAL VACCINE AGE 65+ (1 of 2 - 2006 PCV13) SEQUENTIAL INFLUENZA VACCINE (#1) 2016 Low-dose CT Lung Cancer Screen 10/16/2017 10/16/2016 COLONOSCOPY 07/27/2021 07/27/2016, 01/12/2010 as of this encounter Implants Implanted Type Area Otr Van Cdl Truck Driver Device Expiration Model / Identifier Date Serial / Lot Port Implanted Mri Isp W/8fr Cath Powerport - [id number] Catheter - Right: BARD PERIP 12/26/2017 [id number] / Implanted: Qty: 1 on 12/04/2016 by Kota Vences MD Implant Subclavian / [id number] as of this encounter Visit Diagnoses Diagnosis Encounter for antineoplastic chemotherapy - Primary Malignant neoplasm of head of pancreas (HCC) Malignant neoplasm of head of pancreas Chemotherapy follow-up examination in this encounter Insurance Payer Benefit Plan / Group Subscriber ID Type Phone Address HUMANA MANAGED MEDICARE [place] GOLD PLUS O [id number] [facility]/JESSICA 80% [facility] [id number] Home: [address] [place], [place] [phone] [place] [phone] as of this encounter
--- OUTSIDE RECORDS SUMMARY | 2018-05-19 09:08 | XMS RPT_ITS | Summary of Care ---
:1940 Author Organization [facility] Address [address] [place] [address] Phone Care Team Providers Name Role Phone Jus Allison MD Primary Care Provider Sherif Valles MD Unavailable Varsha Pineda [facility] Unavailable Fran Burris MD Unavailable Reason for Visit Reason Comments F/u from hospital Encounter Details Date Type Department Care Team Description 12/13/2016 Office Visit [facility] Sherif Valles MD Cellulitis of other Center Oncology [address] [facility] specified site (Primary Clinic [facility] [address] Dx);Encounter for [address] [place] [address] [place] [address] chemotherapy;Malignant [phone] neoplasm of head of pancreas (HCC) Allergies Active Allergy Reactions Severity [...] 2 (two) mcg/actuation HFAA times a day. alfuzosin (UROXATRAL) 10 Take 1 tablet 30 tablet 11 10/08/2015 Active mg 24 hr (10 mg total) tabletIndications: Benign by mouth at nodular prostatic bedtime. hyperplasia with lower urinary tract symptoms oxygen Inhale 2.5 Active L/min nightly. omeprazole (PRILOSEC) 40 Take 1 (one) 30 capsule 11 08/18/2016 08/18/2017 Active MG capsuleIndications: capsule (40 Generalized abdominal mg total) by pain mouth daily. dexamethasone (DECADRON) Take 2 (two) 12 tablet 6 11/20/2016 12/18/2016 Active 4 MG tablet tablets (8 mg total) by mouth 2 (two) times a day with meals START TAKING DAY AFTER CHEMO FOR 2 DAYS. cephALEXin (KEFLEX) 500 Take 1 (one) 32 capsule 0 12/12/2016 12/20/2016 Active MG capsule capsule (500 mg total) by [...] taking at at this time this time. as of this encounter Active Problems Problem Noted Date Cellulitis 12/13/2016 Postoperative infection 12/09/2016 Last Assessment [...] Vital Sign Reading Time Taken Blood Pressure 151/92 12/13/2016 1:37 PM EDT Pulse 90 12/13/2016 1:37 PM EDT Temperature 36.7 ??C (98 ??F) 12/13/2016 1:37 PM EDT Respiratory Rate - - Oxygen Saturation - - Inhaled Oxygen Concentration - - Weight 76.2 kg (168 lb) 12/13/2016 1:37 PM EDT Height - - Body Mass Index 25.54 12/13/2016 1:37 PM EDT in this encounter Progress Notes Sherif Valles MD - 12/13/2016 1:03 PM EDTFormatting of this note may be different from the original. [facility] [address] [place] [id number] Hematology and Oncology Progress Note Patient Name: Elbert Canales MR #: [id number] : @ [facility] #: [id number] Date of Service: 12/13/16 Clinician: Sherif Valles MD Diagnosis: Pancreatic cancer, stage IB (T2N0M0), head and uncinate process, 2.1 cm, Dx-10/31/2016. Treatment: Neoadjuvant chemotherapy with Gemzar and Abraxane (d1,8,[id number]) started 11/16/16. Chief Complaint: Follow up, pancreatic [...] Colonic diverticulosis without evidence of diverticulitis. 7. Eecr-vc-asxosmzx constipation. 8. Moderate prostatomegaly. MRI Abdomen on [...] on 10/31/2016, by Dr. Partha Muñoz at [facility] [place] which showed a mass in thepancreatic head [...] 19-9 at 345. He was admitted at [facility] on 12/09/2016, with 1 day of increased [...] on venous Doppler. He was discharged yesterday. Labs done yesterday showed CBC with WBC 2.5, hemoglobin 10.7, platelets 107. There is no differential available. BMP panel with sodium 130, potassium 3.3, creatinine 0.72, magnesium normal at 1.7. TSH was normal at 0.58. He is here for an unscheduled followup evaluation. Currently, he is taking cephalexin and doxycycline which were given at discharge to be taken for a total of 8 days. The blood cultures were negativefrom the peripheral lines. He never had a blood culture drawn from the MediPort. The MediPort areais now getting better with no evidence of rash or cellulitis. The right lower extremity: Erythema and swelling are slowly getting better, but is still he has significant erythema and swelling and tenderness. He denies a fever, but occasionally, he does have chills. He denies shortness of breath, chest pain, nausea, vomiting, diarrhea. Assessment/Plan: Pancreatic cancer (adenocarcinoma), [...] 1, d15 of chemo on 12/07/16. He did not take outpatient Decadron, as he claimed that he did not have any more nausea and he could not sleep for 2 days because of the IV Decadron. He was subsequently admitted at [facility] for redness and pain at his shoulder and right lower extremity. Initially treated with Ancef and vancomycin in the hospital and discharged on cephalexin and doxycycline. Currently he is taking it. There [facility], but right lower extremity still has significant edema, rash, and tenderness. We were able to get the final venous Doppler report from the lower extremity which was negative for a DVT. At this time, we will plan to get a blood culture drawn from the [facility], aerobic and anaerobic, aswell as CBC with differential today. I have advised him to continue the antibiotics prescribed, to complete for a total of 8 days. We will re-evaluate him next week as scheduled with labs. Once we receive the blood culture report, if negative no further action is needed. I have educated him about the signs and symptoms of pulmonary embolism, DVT, and advised him to go to the ER if he has shortness of breath or development of fever or chills. He and his voiced understanding with the above plan. Review of Systems: 12 point review of systems was performed and was negative except as described in the history of present illness and with the following additions: no fevers, +occ chills, night sweats, chest pain, nausea, vomiting, diarrhea, [...] no clubbing, no cyanosis. RLE edema, erythema, tenderness+ Skin: few scatted rash upper ext Neuro: alert, oriented, no focal deficits, speech normal. Psych: Pt has a normal mood and affect. Vital Signs: BP (!) 151/92 (BP Location: Left arm) Pulse 90 Temp 98 ??F (36.7 ??C) (Temporal) Wt 76.2 kg (168 lb) BMI 25.54 kg/m2 Last Height and Weight with BMI: 76.2 kg (168 lb) Body mass index is 25.54 kg/(m^2). PMH/PSH/FH/SH: Past Medical History: Diagnosis Date ??? Arthritis ??? BPH (benign prostatic hyperplasia) ??? Cancer (HCC) skin cancer ??? Cataract ??? Chemotherapy adverse reaction 12/01/2016 has had 2 treatments-- getting port now. Had adverse reaction to zofran after first treatment ??? Chronic diarrhea current problem (07/21/16), stool specimen positive [facility] per pt ??? Colon polyps 2010 benign ??? Complication of anesthesia difficulty waking up ??? COPD (chronic obstructive pulmonary disease) (HCC) ??? GERD (gastroesophageal reflux disease) ??? History of stress test ??? Pancreatic cancer (HCC) 11/12 ??? Pancreatic mass Past Surgical History: Procedure Laterality Date ??? APPENDECTOMY ??? CATHETER INSERTION SQPORT N/A 12/04/2016 Procedure: PORT PLACEMENT ; Surgeon: Kota Vences MD; Location: [facility] Main OR; Service: ??? COLONOSCOPY 2009 benign polyps found ??? COLONOSCOPY N/A 07/27/2016 Procedure: COLONOSCOPY; Surgeon: Kota Vences MD; Location: [facility] Endo; Service: ??? PROSTATE BIOPSY [...] Inhale 2.5 L/min nightly. Historical Provider, pancrelipase, Wjg-Fima-Azlu, (CREON) 12,000-38,000 -60,000 unit CpDR capsule Take 1 (one) capsule (12,000 units of lipase total) by mouth 3 (three) times a day with meals. 08/07/16 08/07/17 Jus Allison MD LABS: Pertinent latest labs reviewed in EMR and discussed with patient. WBC Date Value Ref Range Status 12/12/2016 2.50 (L) 4.50 - 11.00 K/mcL Final 07/07/2014 5.35 4.50 - 11.00 K/MCL RBC Date Value Ref Range Status 12/12/2016 3.36 (L) 4.50 - 5.90 M/mcL Final 07/07/2014 4.73 4.50 - 5.90 M/MCL Hemoglobin Date Value Ref Range Status 12/12/2016 10.7 (L) 13.5 - 17.5 g/dL Final 07/07/2014 15.3 13.5 - 17.5 G/DL Hematocrit Date Value Ref Range Status 12/12/2016 30.6 (L) 41.0 - 53.0 % Final 07/07/2014 45.2 41.0 - 53.0 % MCV Date Value Ref Range Status 12/12/2016 91.1 80.0 - 100.0 fL Final 07/07/2014 95.6 80.0 - 100.0 FL MCH Date Value Ref Range Status 12/12/2016 31.8 26.0 - 34.0 pg Final 07/07/2014 32.3 26.0 - 34.0 PG MCHC Date Value Ref Range Status 12/12/2016 35.0 31.0 - 37.0 g/dL Final Platelets Date Value Ref Range Status 12/12/2016 107 (L) 150 - 400 K/mcL Final RDW Date Value Ref Range Status 07/07/2014 12.5 11.6 - 14.8 % RDW - CV Date Value Ref Range Status 12/12/2016 12.8 11.6 - 14.8 % Final Sodium Date Value Ref Range Status 12/12/2016 130 (L) 135 - 145 mmol/L Final 07/07/2014 136 135 - 145 MMOL/L Potassium Date Value Ref Range Status 12/12/2016 3.3 (L) 3.5 - 5.1 mmol/L Final 07/07/2014 4.4 3.5 - 5.1 MMOL/L Chloride Date Value Ref Range Status 12/12/2016 93 (L) 98 - 108 mmol/L Final 07/07/2014 98 98 - 108 MMOL/L Bicarbonate Date Value Ref Range Status 12/12/2016 29 22 - 34 mmol/L Final 07/07/2014 28 21 - 32 MMOL/L Anion Gap Date Value Ref Range Status 12/12/2016 11 10 - 20 mmol/L Final Glucose Date Value Ref Range Status 12/12/2016 139 (H) 65 - 99 mg/dL Final 07/07/2014 94 65 - 99 MG/DL BUN Date Value Ref Range Status 12/12/2016 15 8 - 25 mg/dL Final 07/07/2014 12 8 - 25 MG/DL Creatinine Date Value Ref Range Status 12/12/2016 0.72 (L) 0.80 - 1.30 mg/dL Final 10/05/2016 0.7 (L) 0.8 - 1.3 mg/dL Final Serum Creatinine Date Value Ref Range Status 01/11/2012 0.9 0.8 - 1.3 MG/DL eGFR Date Value Ref Range Status 12/12/2016 91 >=60 mL/min/1.73 m2 Final GFR, Non Date Value Ref Range Status 01/11/2012 >60 >60 Comment: Test Units:mL/min/1.73m2 This Calculation is for Non Patients BUN/Creatinine Ratio Date Value Ref Range Status 12/12/2016 20.8 (H) 10.0 - 20.0 Final BUN/Creat Ratio Date Value Ref Range Status 07/07/2014 15.0 10.0 - 20.0 Comment: The above 18 analytes were performed by [address] [address] Ordered on: 07/07/2014, EMMA ALLISON Tests Performed at: [facility] (Unless Otherwise Specified) [address] [place] [address], [address] - [facility] #[id number] [facility] - Order ID:[id number] Sample ID:[id number] Total Protein Date Value Ref Range Status 12/07/2016 6.3 6.0 - 8.0 g/dL Final Albumin Date Value Ref Range Status 12/07/2016 3.5 3.2 - 5.2 g/dL Final Calcium Date Value Ref Range Status 12/12/2016 8.3 (L) 8.4 - 10.2 mg/dL Final [...] were reviewed. Follow Up: Return in about 8 days (around 12/21/2016) for Office Visit, Labs - See Treatment Plan. Orders Placed This Encounter Procedures ??? Blood Culture Aerobic/Anaerobic From mediport Standing Status: Future Standing Expiration Date: 12/13/2017 ??? CBC and Differential Standing Status: Future Standing Expiration Date: 03/13/2017 ? Sherif Valles MD [facility] [address] [facility], [address] [place] [address] [phone] CC: MD Inder Fink MD in this encounter Plan of Treatment Upcoming Encounters Date Type Specialty Care Team Description 12/19/2016 Office Visit Primary Care Jus Allison MD [address] [place] [address] [phone] 12/21/2016 Nurse Only Infusion Therapy Sherif Valles MD [address] [address] [phone] 12/21/2016 Office Visit Oncology Sherif Valles MD [address] [id number] 12/21/2016 Infusion/Injection Infusion Therapy Sherif Valles MD [address] [phone] Pending Results Name Priority Associated Diagnoses Date/Time Blood Culture Routine Cellulitis of other 12/13/2016 2:25 PM EDT Aerobic/Anaerobic specified site Scheduled Tests Name Priority Associated Diagnoses Order Schedule Blood Culture Routine Cellulitis of other Expected: 12/13/2016 Aerobic/Anaerobic specified site (Approximate), Expires: 12/13/2017 Health Maintenance Due Date Last Done Comments TETANUS EVERY 10 YR 1940 ZOSTER VACCINE 2001 PNEUMOCOCCAL VACCINE AGE 65+ (1 of 2 - 2006 PCV13) SEQUENTIAL INFLUENZA VACCINE (#1) 2016 Low-dose CT Lung Cancer Screen 10/16/2017 10/16/2016 COLONOSCOPY 07/27/2021 07/27/2016, 01/12/2010 as of this encounter Implants Implanted Type Area Government Relations Manager Device Expiration Model / Identifier Date Serial / Lot Port Implanted Mri Isp W/8fr Cath Powerport - [id number] Catheter - Right: BARD PERIP 12/26/2017 [id number] / Implanted: Qty: 1 on 12/04/2016 by Kota Vences MD Implant Subclavian / [id number] as of this encounter Results CBC Auto Differential (12/13/2016 2:25 PM) Component Value Ref Range WBC 3.56 (L) 4.50 - 11.00 K/mcL RBC 3.63 (L) 4.50 - 5.90 M/mcL Hemoglobin 11.3 (L) 13.5 - 17.5 g/dL Hematocrit 32.8 (L) 41.0 - 53.0 % MCV 90.4 80.0 - 100.0 fL MCH 31.1 26.0 - 34.0 pg MCHC 34.5 31.0 - 37.0 g/dL Platelets 101 (L) 150 - 400 K/mcL RDW - CV 12.7 11.6 - 14.8 % MPV 8.8 (L) 9.0 - 15.5 fL Neutrophils 58.1 % Lymphocytes 31.2 % Monocytes 7.3 % Eosinophils 3.1 % Basophils 0.3 % Neutrophils Abs 2.07 1.70 - 7.00 K/mcL Lymphocytes Abs 1.11 0.90 - 4.00 K/mcL Monocytes Abs 0.26 (L) 0.30 - 0.90 K/mcL Eosinophils Abs 0.11 0.00 - 0.50 K/mcL Basophils Abs 0.01 0.00 - 0.30 K/mcL Nucleated RBC 0.0 % Nucleated RBC Abs 0.00 0.00 - 0.00 K/mcL Specimen [place]forming [place] [address] CBC and Differential (12/13/2016 2:25 PM) Specimen Performing Laboratory Blood Narrative The following orders were created for panel order CBC and Differential. Procedure? Abnormality? Status? ---------? ------? CBC Auto Differential[[id number]]?Abnormal?Final result? Please view results for these tests on the individual orders. in this encounter Visit Diagnoses Diagnosis Cellulitis of other specified site - Primary Encounter for antineoplastic chemotherapy Malignant neoplasm of head of pancreas (HCC) Malignant neoplasm of head of pancreas in this encounter Administered Medications Inactive Administered Medications - up to 3 most recent administrations Medication Order MAR Action Action Date Dose Rate Site heparin, porcine (PF) injection Given 12/13/2016 14:33 EDT 500 Units 500 Units 500 Units, Intravenous, As needed, For port needle removal and monthly., Starting 12/13/16 at 1419, For ports, flush with 10 mL 0.9% NaCl IV and 5 mL Heparin (100 units/mL) prior to needle removal and every month when not in use. sodium chloride (PF) (NS) 0.9 % flush 10 mL Given 12/13/2016 14:33 EDT 10 mL 10 mL, Intravenous, As needed, For port needle removal and monthly., Starting 12/13/16 at 1419, For ports, flush with 10 mL 0.9% NaCl IV and 5 mL Heparin (100 units/mL) prior to needle removal and every month when not in use. sodium chloride (PF) (NS) 0.9 % flush 20 mL Given 12/13/2016 14:33 EDT 20 mL 20 mL, Intravenous, As needed, line care, Starting 12/13/16 at 1419, For Central Lines. Flush after TPN, blood products, and blood draws. in this encounter Insurance Payer Benefit Plan / Group Subscriber ID Type Phone Address HUMANA MANAGED MEDICARE HUMANA MCR GOLD PLUS [facility] [place] [id number] HCAP/JESSICA 80% JESSICA [id number] Home: [address] [place], [place] [phone] [place] [address] as of this encounter
--- OUTSIDE RECORDS SUMMARY | 2018-05-19 09:08 | XMS RPT_ITS | Summary of Care ---
:1940 Author Organization [facility] Address [address] [place] [address] Phone Care Team Providers Name Role Phone Jus Allison MD Primary Care Provider Sherif Valles MD Unavailable Varsha Pineda INBOUND SALES ADVISOR Unavailable Fran Burris MD Unavailable Reason for Visit Auth/Cert (Routine) Status Reason Specialty Diagnoses / Procedures Referred By Contact Referred To Contact Encounter Details Date Type Department Care Team Description 12/04/2016 Hospital Encounter [facility]ota Malignant neoplasm [facility] MD Kannan of head of pancreas Diagnostics [address] [place] [id number] Allergies Active Allergy Reactions Severity Noted Date [...] (one) 90 capsule 0 08/07/2016 08/07/2017 Active Gpr-Ldyr-Vpzt, (CREON) capsule (12,000 12,000-38,000 -60,000 units of [...] Encounters Date Type Specialty Care Team Description 12/07/2016 Nurse Only Infusion Therapy Sherif Valles MD [address] [phone] 12/07/2016 Office Visit Oncology Sherif Valles MD [address] [phone] 12/07/2016 Infusion/Injection Infusion Therapy Sherif Valles MD [address] [address] [phone] Health Maintenance Due Date Last Done Comments TETANUS EVERY 10 YR 1940 ZOSTER VACCINE 2001 PNEUMOCOCCAL VACCINE AGE 65+ (1 of 2 - 2006 PCV13) SEQUENTIAL INFLUENZA VACCINE (#1) 2016 Low-dose CT Lung Cancer Screen 10/16/2017 10/16/2016 COLONOSCOPY 07/27/2021 07/27/2016, 01/12/2010 as of this encounter Implants Implanted Type Area Outside Laborer Device Expiration Model / Identifier Date Serial / Lot Port Implanted Mri Isp W/8fr Cath Powerport - [id number] Catheter - Right: BARD PERIP 12/26/2017 [id number] / Implanted: Qty: 1 on 12/04/2016 by Kota Vences MD Implant Subclavian / [id number] as of this encounter Results XR Chest 1 View (12/04/2016 8:45 AM) Specimen Performing Laboratory [employer] [facility] Impressions 1.?Right chest MediPort with tip in the SVC. 2.?No evidence of pneumothorax. 3.?Emphysema. SAY/cdr Workstation ID:? [id number] Narrative EXAMINATION: CHEST RADIOGRAPH HISTORY: s/p port placement Reason for exam?:s/p port placement Injury/Trauma or Illness?:Illness/Other How long have you had these symptoms (acute/chronic)?:Acute History of cancer?:No Surgeries, chemotherapy, or radiation?:No C25.0?Malignant neoplasm of head of pancreas (HCC) COMPARISON: CT chest 10/16/2016. TECHNIQUE: An AP radiograph was performed of the chest. FINDINGS: There is a right chest MediPort with tip in the SVC.?Cardiac silhouette is normal in size.?The aorta is tortuous.?There are moderate emphysematous changes as seen on CT including prominent bullous emphysema at the apices.?There is no focal consolidation, pleural effusion or pneumothorax.?There are moderate degenerative changes of the AC joints. Procedure Note Interface, Rad [facility] - 12/04/2016 9:27 AM EDT EXAMINATION: CHEST RADIOGRAPH HISTORY: s/p port placement Reason for exam?:s/p port placement Injury/Trauma or Illness?:Illness/Other How long have you had these symptoms (acute/chronic)?:Acute History of cancer?:No Surgeries, chemotherapy, or radiation?:No C25.0 Malignant neoplasm of head of pancreas (HCC) COMPARISON: CT chest 10/16/2016. TECHNIQUE: An AP radiograph was performed of the chest. FINDINGS: There is a right chest MediPort with tip in the SVC. Cardiac silhouette is normal in size. The aorta is tortuous. There are moderate emphysematous changes as seen on CT including prominent bullous emphysema at the apices. There is no focal consolidation, pleural effusion or pneumothorax. There are moderate degenerative changes of the AC joints. IMPRESSION: 1. Right chest MediPort with tip in the SVC. 2. No evidence of pneumothorax. 3. Emphysema. SAY/cdr Workstation ID: [id number] in this encounter Visit Diagnoses Diagnosis Malignant neoplasm of head of pancreas (HCC) Malignant neoplasm of head of pancreas in this encounter Insurance Payer Benefit Plan / Group Subscriber ID Type Phone Address HUMANA MANAGED MEDICARE HUMANA MCR GOLD PLUS HMO [id number] [facility]/JESSICA 80% JESSICA [id number] Home: [address] [place], [place] [phone] [place] [id number] as of this encounter
--- OUTSIDE RECORDS SUMMARY | 2018-05-19 09:08 | XMS RPT_ITS | Summary of Care ---
:1940 Author Organization [facility] Address [address] [place] [address] Phone Care Team Providers Name Role Phone Jus Allison MD Primary Care Provider Sherif Valles MD Unavailable Varsha Pineda CNP Unavailable Fran Burris MD Unavailable Inder Guillen MD Unavailable Reason for Visit Reason Comments Pancreatic Cancer Encounter Details Date Type Department Care Team Description 12/21/2016 Office Visit [facility] Sherif Valles MD Malignant neoplasm of Center Oncology [address] [facility] head of pancreas (HCC) Clinic [address] (Primary [address] [place] [address] Dx);[place] [address] follow-up [phone] examination;Encounter for antineoplastic chemotherapy Allergies Active Allergy [...] Reading Time Taken Blood Pressure 162/89 12/21/2016 9:22 AM EDT Pulse 88 12/21/2016 9:22 AM EDT Temperature 36.2 ??C (97.2 ??F) 12/21/2016 9:22 AM EDT Respiratory Rate - - Oxygen Saturation - - Inhaled Oxygen Concentration - - Weight 77.4 kg (170 lb 9.6 oz) 12/21/2016 9:22 AM EDT Height - - Body Mass Index 25.94 12/21/2016 9:22 AM EDT in this encounter Progress Notes Sherif Valles MD - 12/21/2016 9:16 AM EDTFormatting of this note may be different from the original. [facility] [address] [place] [id number] Hematology and Oncology Progress Note Patient Name: Elbert Canales MR #: [id number] : @ [facility] #: [id number] Date of Service: 12/21/16 Clinician: Sherif Vallse MD Diagnosis: Pancreatic cancer, stage IB (T2N0M0), head and uncinate process, 2.1 cm, Dx-10/31/2016. Treatment: Neoadjuvant chemotherapy with Gemzar and Abraxane (d1,8,[id number]) started 11/16/16. Chief Complaint: Follow up, pancreatic [...] Colonic diverticulosis without evidence of diverticulitis. 7. Hywk-fp-vnjsvyzj constipation. 8. Moderate prostatomegaly. MRI Abdomen on [...] on 10/31/2016, by Dr. Partha Muñoz at [place] which showed a mass in thepancreatic head [...] 19-9 at 345. He was admitted at [place] on 12/09/2016, with 1 day of increased [...] discharged yesterday. He was again discharged from [place] on 12/18/2016. He was admitted on 12/15 for right lower extremity cellulitis, seen by Infectious Disease, and he was treated with antibiotics with negative cultures and the suspected cause of cellulitis was thought to be pseudocellulitis from gemcitabine. Currentlyon edema controlled with leg elevation and Lasix. Labs done on 12/18 showed CBC with WBC 4.1, hemoglobin 9.9, platelets of 192, absolute neutrophil count 1720. BMP panel with a creatinine of 5.67. Blood culture done from [facility] on 12/15 was no growth. A venous Doppler on 12/15/2016, showed no evidence of deep or superficial vein thrombosis in either lower extremity. Currently he is taking Lasix 20 mg twice a day and not on any antibiotics. He is doing well. The edema and the cellulitis are better, but he still has significant swelling and erythema. He denies any fevers, chills, nausea, vomiting, diarrhea. He denies shortness of breath or cough. Assessment/Plan: Pancreatic cancer (adenocarcinoma), involving [...] 2 days because of the IV Decadron. Since his treatment with gemcitabine and Abraxane he has developed what was initially thought to be cellulitis secondary to infection, but now thought to be pseudo-cellulitis secondary to gemcitabine, so far cultures has been negative from periphary and from Mediport and patient was treated on multiple courses of antibiotics. There is no evidence of DVT. He still has significant edema and erythema,although it is getting better now. I reviewed further option for management and at this point, options are either reevaluation by surgical oncologist, Dr. Guillen for surgical options now or may plan to restart/challenge chemotherapy with Abraxane and dose-reduced gemcitabine after further improvement in edema and erythema. Patient does not like to get started back on gemcitabine now and would like to prefer if surgery can be done. Idid speak to Dr. Guillen and he would like to see him some time next week for further evaluation related to surgery. I did advise him that even after surgery, postop chemo is recommended for about 6 months, and we will re- evaluate him to discuss these options after the surgery. In the interim I have advised him to continue Lasix at 20 mg twice a day at least for a week now andcontinue to elevate his legs for edema management and report for any fever or shortness of breath, chest pain to the clinic. I will tentatively schedule him in about 2 weeks just in case for followup or as per Dr. Guillen's plan and recommendation. He and his voiced understanding with the [...] no clubbing, no cyanosis. RLE edema, erythema, min tenderness+ Skin: min few scatted rash upper ext Neuro: alert, oriented, no focal deficits, speech normal. Psych: Pt has a normal mood and affect. Vital Signs: BP (!) 162/89 (BP Location: Right arm) Pulse 88 Temp 97.2 ??F (36.2 ??C) (Temporal) Wt 77.4 kg (170 lb 9.6 oz) BMI 25.94 kg/m2 Last Height and Weight with BMI: 77.4 kg (170 lb 9.6 oz) Body mass index is 25.94 kg/(m^2). PMH/PSH/FH/SH: Past Medical History: Diagnosis Date ??? Arthritis ??? BPH (benign prostatic hyperplasia) ??? Cancer (HCC) skin cancer ??? Cataract ??? Chemotherapy adverse reaction 12/01/2016 has had 2 treatments-- getting port now. Had adverse reaction to zofran after first treatment ??? Chronic diarrhea current problem (07/21/16), stool specimen positive for blood ([facility]) per pt ??? Colon polyps 2010 benign ??? Complication of anesthesia difficulty waking up ??? COPD (chronic obstructive pulmonary disease) (HCC) ??? GERD (gastroesophageal reflux disease) ??? History of stress test ??? Pancreatic cancer (HCC) 11/12 ??? Pancreatic mass Past Surgical History: Procedure Laterality Date ??? APPENDECTOMY ??? CATHETER INSERTION SQPORT N/A 12/04/2016 Procedure: PORT PLACEMENT ; Surgeon: Kota Vences MD; Location: [facility] Main OR; Service: ??? COLONOSCOPY 2009 benign polyps found ??? COLONOSCOPY N/A 07/27/2016 Procedure: COLONOSCOPY; Surgeon: Kota Vences MD; Location: [facility] Endo; Service: ??? PROSTATE BIOPSY ??? SINUS [...] Inhale 2.5 L/min nightly. Historical Provider, pancrelipase, Kho-Fugb-Emuv, (CREON) 12,000-38,000 -60,000 unit CpDR capsule Take 1 (one) capsule (12,000 units of lipase total) by mouth 3 (three) times a day with meals. 08/07/16 08/07/17 Jus Allison MD LABS: Pertinent latest labs reviewed in EMR and discussed with patient. WBC Date Value Ref Range Status 12/21/2016 6.17 4.50 - 11.00 K/mcL Final 07/07/2014 5.35 4.50 - 11.00 K/MCL RBC Date Value Ref Range Status 12/21/2016 3.66 (L) 4.50 - 5.90 M/mcL Final 07/07/2014 4.73 4.50 - 5.90 M/MCL Hemoglobin Date Value Ref Range Status 12/21/2016 11.4 (L) 13.5 - 17.5 g/dL Final 07/07/2014 15.3 13.5 - 17.5 G/DL Hematocrit Date Value Ref Range Status 12/21/2016 34.0 (L) 41.0 - 53.0 % Final 07/07/2014 45.2 41.0 - 53.0 % MCV Date Value Ref Range Status 12/21/2016 92.9 80.0 - 100.0 fL Final 07/07/2014 95.6 80.0 - 100.0 FL MCH Date Value Ref Range Status 12/21/2016 31.1 26.0 - 34.0 pg Final 07/07/2014 32.3 26.0 - 34.0 PG MCHC Date Value Ref Range Status 12/21/2016 33.5 31.0 - 37.0 g/dL Final Platelets Date Value Ref Range Status 12/21/2016 446 (H) 150 - 400 K/mcL Final RDW Date Value Ref Range Status 07/07/2014 12.5 11.6 - 14.8 % RDW - CV Date Value Ref Range Status 12/21/2016 13.5 11.6 - 14.8 % Final Sodium Date Value Ref Range Status 12/21/2016 131 (L) 135 - 145 mmol/L Final 07/07/2014 136 135 - 145 MMOL/L Potassium Date Value Ref Range Status 12/21/2016 4.3 3.5 - 5.1 mmol/L Final 07/07/2014 4.4 3.5 - 5.1 MMOL/L Chloride Date Value Ref Range Status 12/21/2016 92 (L) 98 - 108 mmol/L Final 07/07/2014 98 98 - 108 MMOL/L Bicarbonate Date Value Ref Range Status 12/21/2016 27 21 - 32 mmol/L Final 07/07/2014 28 21 - 32 MMOL/L Anion Gap Date Value Ref Range Status 12/21/2016 16 10 - 20 mmol/L Final Glucose Date Value Ref Range Status 12/21/2016 159 (H) 65 - 99 mg/dL Final 07/07/2014 94 65 - 99 MG/DL BUN Date Value Ref Range Status 12/21/2016 11 8 - 25 mg/dL Final 07/07/2014 12 8 - 25 MG/DL Creatinine Date Value Ref Range Status 12/21/2016 0.68 (L) 0.80 - 1.30 mg/dL Final 10/05/2016 0.7 (L) 0.8 - 1.3 mg/dL Final Serum Creatinine Date Value Ref Range Status 01/11/2012 0.9 0.8 - 1.3 MG/DL eGFR Date Value Ref Range Status 12/21/2016 93 >=60 mL/min/1.73 m2 Final GFR, Non Date Value Ref Range Status 01/11/2012 >60 >60 Comment: Test Units:mL/min/1.73m2 This Calculation is for Non Patients BUN/Creatinine Ratio Date Value Ref Range Status 12/21/2016 16.2 10.0 - 20.0 Final BUN/Creat Ratio Date Value Ref Range Status 07/07/2014 15.0 10.0 - 20.0 Comment: The above 18 analytes were performed by [address] [address] Ordered on: 07/07/2014, EMMA ALLISON Tests Performed at: [facility] (Unless Otherwise Specified) [address] [place] [address], [address] - [place] #[id number] M[facility]OS - Order ID:[id number] Sample ID:[id number] Total Protein Date Value Ref Range Status 12/21/2016 6.6 6.0 - 8.0 g/dL Final Albumin Date Value Ref Range Status 12/21/2016 3.7 3.2 - 5.2 g/dL Final Calcium Date Value Ref Range Status 12/21/2016 9.2 8.4 - 10.2 mg/dL Final 07/07/2014 10.0 8.4 - 10.2 MG/DL Alkaline Phosphatase Date Value Ref Range Status 12/21/2016 85 40 - 150 U/L Final AST Date Value Ref Range Status 12/21/2016 27 0 - 45 U/L Final ALT Date Value Ref Range Status 12/21/2016 36 0 - 40 U/L Final Total Bilirubin Date Value Ref Range Status 12/21/2016 0.2 0.0 - 1.3 mg/dL Final Diagnostic Tests: Pertinent available radiologic studies were reviewed. Follow Up: Return in about 2 weeks (around 01/04/2017) for Office Visit, Labs - See Treatment Plan, Referral. Orders Placed This Encounter Procedures ??? CBC and Differential Standing Status: Future Standing Expiration Date: 06/19/2017 ??? Comprehensive Metabolic Panel Standing Status: Future Standing Expiration Date: 06/19/2017 ??? CA 19-9 Standing Status: Future Standing Expiration Date: 12/22/2017 ? Sherif Valles MD [facility] [address] [facility], [address] [place] [address] [phone] CC: MD Inder Fink MD in this encounter Plan of Treatment Upcoming Encounters Date Type Specialty Care Team Description 12/28/2016 Office Visit Surgical Oncology Inder Guillen MD [address] [facility] [address] [place] [address] [phone] 01/04/2017 Nurse Only Infusion Therapy 01/04/2017 Office Visit Oncology Sherif Valles MD [address] [facility] [address] [place] [address] [phone] 01/04/2017 Infusion/Injection Infusion Therapy Scheduled Tests Name Priority Associated Diagnoses Order Schedule CBC and Differential Routine Malignant neoplasm of head Expected: 01/04/2017 of pancreas (HCC) (Approximate), Chemotherapy follow-up Expires: 06/19/2017 examination Comprehensive Metabolic Routine Malignant neoplasm of head Expected: 01/04/2017 Panel of pancreas (HCC) (Approximate), Chemotherapy follow-up Expires: 06/19/2017 examination CA 19-9 Routine Malignant neoplasm of head Expected: 01/04/2017 of pancreas (HCC) (Approximate), Chemotherapy follow-up Expires: 12/22/2017 examination Health Maintenance Due Date Last Done Comments TETANUS EVERY 10 YR 1940 ZOSTER VACCINE 2001 PNEUMOCOCCAL VACCINE AGE 65+ (1 of 2 - 2006 PCV13) SEQUENTIAL INFLUENZA VACCINE (#1) 2016 Low-dose CT Lung Cancer Screen 10/16/2017 10/16/2016 COLONOSCOPY 07/27/2021 07/27/2016, 01/12/2010 as of this encounter Implants Implanted Type Area Assistant Cook Device Expiration Model / Identifier Date Serial / Lot Port Implanted Mri Isp W/8fr Cath Powerport - [id number] Catheter - Right: BARD PERIP 12/26/2017 [id number] / Implanted: Qty: 1 on 12/04/2016 by Kota Vences MD Implant Subclavian / [id number] as of this encounter Visit Diagnoses Diagnosis Malignant neoplasm of head of pancreas (HCC) - Primary Malignant neoplasm of head of pancreas Chemotherapy follow-up examination Encounter for antineoplastic chemotherapy in this encounter Insurance Payer Benefit Plan / Group Subscriber ID Type Phone Address HUMANA MANAGED MEDICARE HUMANA MCR GOLD PLUS HMO [id number] [facility]/JESSICA 80% JESSICA [id number] [phone] [place] [id number] as of this encounter
--- OUTSIDE RECORDS SUMMARY | 2018-05-19 09:08 | XMS RPT_ITS | Summary of Care ---
:1940 Author Organization [facility] Address [address] [place] [address] Phone Care Team Providers Name Role Phone Jus Allison MD Primary Care Provider Sherif Valles MD Unavailable Varsha Pineda [facility] Unavailable Fran Burris MD Unavailable Encounter Details Date Type Department Care Team Description 12/07/2016 Infusion/Inje [facility] Sherif Valles MD Malignant neoplasm of [facility] Chemo [address] [facility] head of pancreas (HCC) Infusion Therapy Anand [address] (Primary Dx);Encounter [address] [place] [address] [place] [address] chemotherapy [phone] Allergies Active Allergy Reactions Severity Noted Date [...] (one) 90 capsule 0 08/07/2016 08/07/2017 Active Rnu-Viro-Scol, (CREON) capsule (12,000 12,000-38,000 -60,000 units of [...] file as of this encounter Progress Notes Tasneem Hale - 12/07/2016 10:32 AM EDTFormatting of this note may be different from the original. Spiritual Care Services Progress Note Date of Visit: 12/07/2016 Patient Name: Elbert Canales : 1940 Age: 76 y.o. Reason for Visit: Rounding Patient Concerns: Recent of younger sister who also had cancer Patient Coping/Spiritual Resources: Spiritual Not Protestant, Family and Friends Patient Access to Resources: Able to access [employer] Intervention: Active/Reflective listening and Compassionate presence Care Plan: Consult as needed Situation: Chito was seated in recliner receiving treatment during this tableau report developer's first rounding visit with him. A member of his support team was also present but did not identify herself as family or friend. Background: Chito reflected on his health and made connections to his younger sister who only a month ago of cancer. He expressed that it isn't supposed to be that way, for the younger sister to go before her older brother. He repeated in response to this that You just never know what's going to happen. He explained that his fadumo background began in the [employer] pent[employer]alism but that he also attended Baptism churches. 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 Assessment: Chito is engaged in meaning-making as he grieves the loss of his sister and tries to understand the recent changes in his own health, particularly why he is still alive and why his sister is not. He highlighted that he has support and that he is able to adapt as life situations change. Gold Leaf [employer] spoke a word of blessing and encouragement to Don and his support person as they continue the journey of treatment. Recommendation: Pastoral Care Services PRN Tasneem Hale MDiv. Associate Contact in this encounter Plan of Treatment Upcoming Encounters Date Type Specialty Care Team Description 12/21/2016 Nurse Only Infusion Therapy 12/21/2016 Office Visit Oncology Sherif Valles MD [address] [facility] [address] [place] [address] [phone] 12/21/2016 Infusion/Injection Infusion Therapy Health Maintenance Due Date Last Done Comments TETANUS EVERY 10 YR 1940 ZOSTER VACCINE 2001 PNEUMOCOCCAL VACCINE AGE 65+ (1 of 2 - 2006 PCV13) SEQUENTIAL INFLUENZA VACCINE (#1) 2016 Low-dose CT Lung Cancer Screen 10/16/2017 10/16/2016 COLONOSCOPY 07/27/2021 07/27/2016, 01/12/2010 as of this encounter Implants Implanted Type Area Merchandising Representative Device Expiration Model / Identifier Date Serial / Lot Port Implanted Mri Isp W/8fr Cath Powerport - [id number] Catheter - Right: BARD PERIP 12/26/2017 [id number] / Implanted: Qty: 1 on 12/04/2016 by Kota Vences MD Implant Subclavian / [id number] as of this encounter Visit Diagnoses Diagnosis Malignant neoplasm of head of pancreas (HCC) - Primary Malignant neoplasm of head of pancreas Encounter for antineoplastic chemotherapy in this encounter Administered Medications Inactive Administered Medications - up to 3 most recent administrations Medication Order MAR Action Action Date Dose Rate Site dexamethasone (DECADRON) injection 6 Given 12/07/2016 10:45 EDT 6 mg mg 6 mg, Intravenous, Once, Gemini 12/07/16 at 1045, For 1 dose, IV Push 30 minutes prior to chemotherapy treatment. Give over 15 minutes gemcitabine (GEMZAR) 1,000 mg/m2 = Rate/Dose Change 12/07/2016 11:50 EDT 5 mL/hr 1,890 mg in sodium chloride 0.9 % (NS) 299.707 mL chemo infusion 1,890 mg (1,000 mg/m2 ? 1.89 m2 Treatment plan recorded BSA), Intravenous, Administer over 30 Minutes, Once, Gemini 12/07/16 at 1130, For 1 dose, Follow Chemotherapy Precautions. Increased toxicity when given with infusions longer than 60 minutes Chemotherapy competent RN only to administer. Hazardous medication. Use safe handling precautions. Rate/Dose Change 12/07/2016 11:51 EDT 610 mL/hr Rate/Dose Change 12/07/2016 11:52 EDT 5 mL/hr heparin, porcine (PF) injection 500 Units Given 12/07/2016 11:59 EDT 500 Units 500 Units, Intravenous, As needed, For port needle removal and monthly., Starting Gemini 12/07/16 at 0950, For ports, flush with 10 mL 0.9% NaCl IV and 5 mL Heparin (100 units/mL) prior to needle removal and every month when not in use. nab-PACLitaxel (ABRAXANE) chemo Rate/Dose Verify 12/07/2016 10:54 EDT 96 mL/hr infusion 125 mg/m2 = 237.5 mg 47.5 mL 237.5 mg (rounded from 236.25 mg = 125 mg/m2 ? 1.89 m2 Treatment plan recorded BSA), Intravenous, at 95 mL/hr, Once, Gemini 12/07/16 at 1130, For 1 dose, Infuse over 60 minutes. Chemotherapy competent RN only to administer. Hazardous medication. Use safe handling precautions. Locate in [facility] drug library under nab-Pacli (Abraxane). Rate/Dose Change 12/07/2016 10:54 EDT 104 mL/hr Rate/Dose Change 12/07/2016 11:08 EDT 114 mL/hr sodium chloride (PF) (NS) 0.9 % flush 10 mL Given 12/07/2016 09:50 EDT 10 mL 10 mL, Intravenous, As needed, line care, Starting Gemini 12/07/16 at 0950, For Central Lines. Flush before and after medication administration. Given 12/07/2016 11:10 EDT 10 mL Given 12/07/2016 11:13 EDT 10 mL sodium chloride (PF) (NS) 0.9 % flush 20 mL Given 12/07/2016 11:59 EDT 20 mL 20 mL, Intravenous, As needed, line care, Starting Gemini 12/07/16 at 0950, For Central Lines. Flush after TPN, blood products, and blood draws. sodium chloride 0.9% (NS) New Bag 12/07/2016 09:51 EDT 25 mL/hr 25 mL/hr 25 mL/hr, Intravenous, Continuous, Starting Gemini 12/07/16 at 1045 Rate/Dose Verify 12/07/2016 09:53 EDT 25 mL/hr 25 mL/hr in this encounter Insurance Payer Benefit Plan / Group Subscriber ID Type Phone Address [facility] Colibri Heart Valve MEDICARE HUMANA MCR GOLD PLUS HMO [id number] FOR[facility]/JESSICA 80% [facility] [id number] [phone] [place] [phone] as of this encounter
--- OUTSIDE RECORDS SUMMARY | 2018-05-19 09:08 | XMS RPT_ITS | Summary of Care ---
:1940 Author Organization [facility] Address [address] [place] [address] Phone Care Team Providers Name Role Phone Saray Allison MD Primary Care Provider Sherif Valles MD Unavailable Varsha Pineda [facility] Unavailable Fran Burris MD Unavailable Reason for Visit Reason Comments Transition Of Care hospital f/u from 12/12/16 Leg Pain on right leg, thought it was cellulitis, from knee to foot Encounter Details Date Type Department Care Team Description 12/19/2016 Office Visit [place] Saray Story Pseudocellulitis Physicians Primary MD A[place] (Primary Dx) Care #6 [facility] [address] [place] [address] [place] [address] [phone] Allergies Active Allergy Reactions Severity Noted Date [...] Vital Sign Reading Time Taken Blood Pressure 156/78 12/19/2016 10:46 AM EDT Pulse 86 12/19/2016 10:46 AM EDT Temperature 36.7 ??C (98 ??F) 12/19/2016 10:46 AM EDT Respiratory Rate - - Oxygen Saturation 95% 12/19/2016 10:46 AM EDT Inhaled Oxygen Concentration - - Weight 78 kg (172 lb) 12/19/2016 10:46 AM EDT Height 172.7 cm (5' 8) 12/19/2016 10:46 AM EDT Body Mass Index 26.15 12/19/2016 10:46 AM EDT in this encounter Progress Notes Saray Allison MD - 12/19/2016 11:07 AM EDTSubjective Patient ID: Elbert Canales is a 76 y.o. male. Discharge Diagnoses and Associated Hospital Course: ?? ASSESSMENT AND PLAN: ? Perpetual Assessment: ?Elbert??Parker??is a 76 y.o.??y/o male??on hospital day 2??with [...] surgery. Follows with oncology Dr Valles and [facility] surgeon Dr. Tarango. ??Next session is 12/21 [...] patient is refusing. ??Smoking cessation reinforced. ?? HPI Dictation on: 12/19/2016 5:15 PM by: SARAY ALLISON [[id number]] Review of Systems Objective Physical Exam Constitutional: He appears well-developed and well-nourished. No distress. Cardiovascular: Normal rate, regular rhythm and normal heart sounds. Exam reveals no gallop and no friction rub. No murmur heard. Pulmonary/Chest: Effort normal and breath sounds normal. No respiratory distress. He has no wheezes.He has no rales. Musculoskeletal: He exhibits edema (2-3+ on R leg and 1-2+ on L leg). He exhibits no tenderness. Lymphadenopathy: Right: No inguinal adenopathy present. Left: No inguinal adenopathy present. Skin: There is erythema (R>L leg ). Nursing note and vitals reviewed. Assessment/Plan: Diagnoses and all orders for this visit: Pseudocellulitis Stop all antibiotics, continue diuretics. Keep specialist F/U appointments. Return if symptoms worsen or fail to improve. Saray Allison MD in this encounter Plan of Treatment Upcoming Encounters Date Type Specialty Care Team Description 12/21/2016 Nurse Only Infusion Therapy Sherif Valles MD [address] [address] [phone] 12/21/2016 Office Visit Oncology Sherif Valles MD [address] [address] [phone] 12/21/2016 Infusion/Injection Infusion Therapy Sherif Valles MD [address] [address] [phone] Health Maintenance Due Date Last Done Comments TETANUS EVERY 10 YR 1940 ZOSTER VACCINE 2001 PNEUMOCOCCAL VACCINE AGE 65+ (1 of 2 - 2006 PCV13) SEQUENTIAL INFLUENZA VACCINE (#1) 2016 Low-dose CT Lung Cancer Screen 10/16/2017 10/16/2016 COLONOSCOPY 07/27/2021 07/27/2016, 01/12/2010 as of this encounter Implants Implanted Type Area Coffee Maker Servicer Device Expiration Model / Identifier Date Serial / Lot Port Implanted Mri Isp W/8fr Cath Powerport - [id number] Catheter - Right: BARD PERIP 12/26/2017 [id number] / Implanted: Qty: 1 on 12/04/2016 by Kota Vences MD Implant Subclavian / [id number] as of this encounter Visit Diagnoses Diagnosis Pseudocellulitis - Primary in this encounter Insurance Payer Benefit Plan / Group Subscriber ID Type Phone Address HUMANA MANAGED MEDICARE HUMANA [facility] GOLD PLUS O [id number] [facility]/JESSICA 80% JESSICA [id number] [phone] [place] [id number] as of this encounter
--- OUTSIDE RECORDS SUMMARY | 2018-05-19 09:09 | XMS RPT_ITS | Summary of Care ---
:1940 Author Organization [facility] Address [address] [id number] Care Team Providers Name Role Phone Jus [...] head of pancreas (HCC) Chemotherapy follow-up examination Sheirf Valles MD Procedures CT Chest Abdomen Pelvis With Contrast [address] [facility] [address] [place] [address] Reason for Visit Reason Comments Pancreatic Cancer Encounter Details Date Type Department Care Team Description 07/16/2017 Office Visit [facility] Sherif Valles MD Chemotherapy follow-up examination (Primary Dx); Center Oncology [address] [facility] Malignant neoplasm of head of pancreas (HCC); Clinic [address] Encounter for antineoplastic chemotherapy; [address] [place] [address] [place] [address] [phone] Allergies Active Allergy Reactions Severity Noted Date [...] (one) 90 capsule 11 03/02/2017 03/02/2018 Active Qbn-Xqwv-Zvwb, (CREON) capsule (12,000 12,000-38,000 -60,000 units of [...] Vital Sign Reading Time Taken Blood Pressure 161/74 07/16/2017 2:17 PM EDT Pulse 76 07/16/2017 2:17 PM EDT Temperature 36.3 ??C (97.4 ??F) 07/16/2017 2:17 PM EDT Respiratory Rate - - Oxygen Saturation - - Inhaled Oxygen Concentration - - Weight 61.4 kg (135 lb 6.4 oz) 07/16/2017 2:17 PM EDT Height 172.7 cm (5' 8) 07/16/2017 2:17 PM EDT Body Mass Index 20.59 07/16/2017 2:17 PM EDT in this encounter Progress Notes Sherif Valles MD - 07/16/2017 1:47 PM EDTFormatting of this note may be different from the original. [facility] [address] [place] [id number] Hematology and Oncology Progress Note Patient Name: Hi Canales MR #: [id number] : @ [facility] #: [id number] Date of Service: 07/16/17 Clinician: Sherif Valles MD Assessment/Plan: Pancreatic cancer [...] extra week of break from the chemo. Currently on chemoRT with continuous 5FU from 06/12/17 with dose reduction in chemotherapy by 20% with radiation, now tolerating it well, his chemoRT is to complete on 07/19. This week he is feeling morefatigued, diarrhea is stable, mostly in morning. Labs are overall stable, CA 19-9 level stable also at 120.8 Diarrhea. Controlled now with diet management, on Creon and take imodium 2 tablets with initial BM,then 1 tablet with each subsequent BM not to exceed 12 tablets in 24 hours. Edema bilateral lower extremities. Near resolved now. Continue lasix prn and to elevate his legs while sitting. Plan: Continue chemo with RT as scheduled now (last melissa of RT on 07/19). Will plan to repeat CT, labs in 4 weeks. He likes 5 wks of breack after chemoRT. RTC 1 month. Encouraged to increase protein rich food. Again reviewed the future treatment plan. ?? Pt and voiced understanding. Encouraged to call with any other questions or concerns. ?? Chief Complaint: Follow up, pancreatic cancer. He is doing well, has good appetite. He denies any [...] Colonic diverticulosis without evidence of diverticulitis. 7. Eoyb-wu-bivtdlqa constipation. 8. Moderate prostatomegaly. MRI Abdomen on [...] on 10/31/2016, by Dr. Partha Muñoz at [place] which showed a mass in thepancreatic head [...] consistent with adenocarcinoma. He was admitted at [place] on 12/09/2016, with 1 day of increased [...] discharged yesterday. He was again discharged from [place] on 12/18/2016. He was admitted on 12/15 [...] status post [place]. Advanced emphysema was noted. Review of Systems: 12 point review of [...] mood and affect. Vital Signs: BP (!) 161/74 (BP Location: Right arm) Pulse 76 Temp 97.4 ??F (36.3 ??C) (Temporal) Ht 5 Wt 61.4 kg (135 lb 6.4 oz) BMI 20.59 kg/m?? Last Height and Weight with BMI: 61.4 kg (135 lb 6.4 oz) Body mass index is 20.59 kg/m??. PMH/PSH/FH/SH: Past Medical History: Diagnosis Date ??? Arthritis ??? BPH (benign prostatic hyperplasia) ??? Cancer (HCC) skin cancer ??? Cataract ??? Chemotherapy adverse reaction 12/01/2016 has had 2 treatments-- getting port now. Had adverse reaction to zofran after first treatment ??? Chronic diarrhea current problem (07/21/16), stool specimen positive for blood ([facility]) per pt ??? Colon polyps 2010 [...] Procedure: COLONOSCOPY; Surgeon: Kota Vences MD; Location: [facility] Endo; Service: ??? INSERTION SUBCUTANEOUS PORT N/A 12/04/2016 Procedure: PORT PLACEMENT ; Surgeon: Kota Vences MD; Location: [facility] Main OR; Service: ??? PROSTATE BIOPSY ??? SINUS SURGERY 2003 ??? WHIPPLE PROCEDURE N/A 01/24/2017 Procedure: WHIPPLE PROCEDURE; Surgeon: Inder Guillen MD; Location: [facility] Main OR; Service: Family History Problem Relation [...] Inhale 2.5 L/min nightly. Historical Provider, pancrelipase, Tcn-Xfkv-Hmto, (CREON) 12,000-38,000 -60,000 unit CpDR capsule Take 1 (one) capsule (12,000 units of lipase total) by mouth 3 (three) times a day with meals. 08/07/16 08/07/17 Jus Allison MD LABS: Pertinent latest labs reviewed in EMR and discussed with patient. WBC Date Value Ref Range Status 07/16/2017 5.77 4.50 - 11.00 K/mcL Final 07/07/2014 5.35 4.50 - 11.00 K/MCL RBC Date Value Ref Range Status 07/16/2017 3.78 (L) 4.50 - 5.90 M/mcL Final 07/07/2014 4.73 4.50 - 5.90 M/MCL Hemoglobin Date Value Ref Range Status 07/16/2017 12.0 (L) 13.5 - 17.5 g/dL Final 07/07/2014 15.3 13.5 - 17.5 G/DL Hematocrit Date Value Ref Range Status 07/16/2017 35.7 (L) 41.0 - 53.0 % Final 07/07/2014 45.2 41.0 - 53.0 % MCV Date Value Ref Range Status 07/16/2017 94.4 80.0 - 100.0 fL Final 07/07/2014 95.6 80.0 - 100.0 FL MCH Date Value Ref Range Status 07/16/2017 31.7 26.0 - 34.0 pg Final 07/07/2014 32.3 26.0 - 34.0 PG MCHC Date Value Ref Range Status 07/16/2017 33.6 31.0 - 37.0 g/dL Final Platelets Date Value Ref Range Status 07/16/2017 159 150 - 400 K/mcL Final RDW Date Value Ref Range Status 07/07/2014 12.5 11.6 - 14.8 % RDW - CV Date Value Ref Range Status 07/16/2017 16.6 (H) 11.6 - 14.8 % Final Sodium Date Value Ref Range Status 07/16/2017 132 (L) 135 - 145 mmol/L Final 07/07/2014 136 135 - 145 MMOL/L Potassium Date Value Ref Range Status 07/16/2017 4.0 3.5 - 5.1 mmol/L Final 07/07/2014 4.4 3.5 - 5.1 MMOL/L Chloride Date Value Ref Range Status 07/16/2017 95 (L) 98 - 108 mmol/L Final 07/07/2014 98 98 - 108 MMOL/L Bicarbonate Date Value Ref Range Status 07/16/2017 26 21 - 32 mmol/L Final 07/07/2014 28 21 - 32 MMOL/L Anion Gap Date Value Ref Range Status 07/16/2017 15 10 - 20 mmol/L Final Glucose Date Value Ref Range Status 07/16/2017 150 (H) 65 - 99 mg/dL Final 07/07/2014 94 65 - 99 MG/DL BUN Date Value Ref Range Status 07/16/2017 7 (L) 8 - 25 mg/dL Final 07/07/2014 12 8 - 25 MG/DL Creatinine Date Value Ref Range Status 07/16/2017 0.72 (L) 0.80 - 1.30 mg/dL Final 10/05/2016 0.7 (L) 0.8 - 1.3 mg/dL Final Serum Creatinine Date Value Ref Range Status 01/11/2012 0.9 0.8 - 1.3 MG/DL eGFR Date Value Ref Range Status 07/16/2017 91 >=60 mL/min/1.73 m2 Final GFR, Non Date Value Ref Range Status 01/11/2012 >60 >60 Comment: Test Units:mL/min/1.73m2 This Calculation is for Non Patients BUN/Creatinine Ratio Date Value Ref Range Status 07/16/2017 9.7 (L) 10.0 - 20.0 Final BUN/Creat Ratio Date Value Ref Range Status 07/07/2014 15.0 10.0 - 20.0 Comment: The above 18 analytes were performed by [address],[place] [address] Ordered on: 07/07/2014, EMMA ALLISON Tests Performed at: [facility] (Unless Otherwise Specified) [address] [place] [address], [place], [address] - [facility] #[id number] [facility] - Order ID:[id number] Sample ID:[id number] Total Protein Date Value Ref Range Status 07/16/2017 6.0 6.0 - 8.0 g/dL Final Albumin Date Value Ref Range Status 07/16/2017 3.5 3.2 - 5.2 g/dL Final Calcium Date Value Ref Range Status 07/16/2017 8.6 8.4 - 10.2 mg/dL Final 07/07/2014 10.0 8.4 - 10.2 MG/DL Alkaline Phosphatase Date Value Ref Range Status 07/16/2017 72 40 - 150 U/L Final AST Date Value Ref Range Status 07/16/2017 26 0 - 45 U/L Final ALT Date Value Ref Range Status 07/16/2017 19 0 - 40 U/L Final Total Bilirubin Date Value Ref Range Status 07/16/2017 0.5 0.0 - 1.3 mg/dL Final Diagnostic Tests: Pertinent available radiologic studies were reviewed. Follow Up: Return in about 1 month (around 08/16/2017) for Office Visit, Infusion - See Treatment Plan, Labs - See Treatment Plan, Imaging - See orders. Orders Placed This Encounter Procedures ??? CT Chest Abdomen Pelvis With Contrast Standing Status: Future Standing Expiration Date: 09/15/2017 Scheduling Instructions: If patient is allergic to contrast, appointment must be scheduled in a hospital CT dept.: , [facility], [facility], [place], [place], [place] or [facility], Sunday thru Sunday only. If the patient has a contrast allergy, please contact [facility] Radiology Chart compilers for assistance with ordering Radiology Premedication Protocol. Schedule at the main hospital if patient is also having a procedure done at the hospital (ex: NucMed Scan). CT Abdomen and or Pelvis with MRI - schedule CT at least 2 hours before or 2 hours after MRI. NEW: If patient age under 18 years, do not schedule at [facility] Imaging Doctors - call the department at [phone] when scheduling any child from the age of 6 months to 5 years to see if medication is necessary [place] - Call CT [phone] before scheduling a CTA and a CT on the same day - there is a chance these two tests cannot be performed on the same day. Do not schedule any CT with contrast after 5pm. The last available with contrast CT is 4:30pm. [place] - age limit 16 and over [place] - when the caller is requesting [place] for their CT please scan [place] as well. IfBing appointment is sooner notify caller and ask if they would like that slot. Order Specific Question: Reason for Exam: Answer: Pancreatic cancer s/p surgery, s/p chemoRT, for follow up. Order Specific Question: Does the patient require moderate sedation? Answer: No Order Specific Question: Does this exam require IV hydration? Answer: No ??? CBC and Differential Standing Status: Future Standing Expiration Date: 09/15/2017 ??? Comprehensive Metabolic Panel Standing Status: Future Standing Expiration Date: 09/15/2017 ??? CA 19-9 Standing Status: Future Standing Expiration Date: 09/15/2017 ? Sherif Valles MD [facility] [address] [facility], [address] [place] [address] [phone] CC: MD Inder Fink MD Andrew Freeman, MD in this encounter Plan of Treatment Upcoming Encounters Date Type Specialty Care Team Description 07/17/2017 Office Visit Home Health Services Betty Gates RN 07/17/2017 Radiation Oncology Radiation Oncology 07/18/2017 Radiation Oncology Radiation Oncology 07/19/2017 Radiation Oncology Radiation Oncology 07/24/2017 Office Visit Home Health Services Betty Gates RN 07/31/2017 Office Visit Home Health Services Betty Gates RN 08/01/2017 Radiation Oncology Radiation Oncology 08/07/2017 Office Visit Home Health Services Betty Gates, PAT 08/13/2017 Nurse Only Infusion Therapy 08/13/2017 Appointment Radiology Sherif Valles MD [address] [facility] [place] [address] [place] [address] 08/14/2017 Office Visit Home Health Services Betty Gates RN 08/16/2017 Radiation Oncology Radiation Oncology Cole Rivera MD [address] [address] [phone] 08/16/2017 Office Visit Oncology Sherif Valles MD [address] [address] [phone] 08/21/2017 Office Visit Home Health Services Betty Gates, PAT 08/28/2017 Office Visit Home Health Services Betty Gates, PAT Scheduled Tests Name Priority Associated Diagnoses Order Schedule CT Chest Abdomen Pelvis With Routine Malignant neoplasm of head Expected: 08/13/2017 Contrast of pancreas (HCC) (Approximate), Chemotherapy follow-up Expires: 09/15/2017 examination CBC and Differential Routine Malignant neoplasm of head Expected: 08/13/2017 of pancreas (HCC) (Approximate), Chemotherapy follow-up Expires: 09/15/2017 examination Comprehensive Metabolic Routine Malignant neoplasm of head Expected: 08/13/2017 Panel of pancreas (HCC) (Approximate), Chemotherapy follow-up Expires: 09/15/2017 examination CA 19-9 Routine Malignant neoplasm of head Expected: 08/13/2017 of pancreas (HCC) (Approximate), Chemotherapy follow-up Expires: 09/15/2017 examination Health Maintenance Due Date Last Done Comments TETANUS EVERY 10 YR 1940 ZOSTER VACCINE 2001 PNEUMOCOCCAL VACCINE AGE 65+ (1 of 2006 2 - PCV13) SEQUENTIAL INFLUENZA VACCINE 10/27/2017 (Season Ended) Low-dose CT Lung Cancer Screen 04/24/2018 04/24/2017, 02/22/2017, 01/03/2017, Additional history exists COLONOSCOPY 07/27/2021 07/27/2016, 01/12/2010 as of this encounter Implants Implanted Type Area Managed Care Provider Device Expiration Model / Identifier Date Serial / Lot Port Implanted Mri Isp W/8fr Cath Powerport - [id number] Catheter - Right: BARD PERIP 12/26/2017 [id number] / Implanted: Qty: 1 on 12/04/2016 by Kota Vences MD Implant Subclavian / [id number] Cath 90cm Peritoneal Open End W/Wall Slits - [id number] Catheter - N/A: Abdomen MEDTRO SHAGGY [id number] / Implanted: Qty: 1 on 01/24/2017 by Inder Guillen MD Implant / Sealant 10ml Floseal Matrix Hemostatic W/Ndl-Free Adapter - [id number] N/A: Abdomen TOBAR BIO 03/20/2018 [id number] / Implanted: Qty: 2 on 01/24/2017 by Inder Guillen MD / [id number] as of this encounter Results CBC Auto Differential (07/16/2017 1:14 PM) Component Value Ref Range WBC 5.77 4.50 - 11.00 K/mcL RBC 3.78 (L) 4.50 - 5.90 M/mcL Hemoglobin 12.0 (L) 13.5 - 17.5 g/dL Hematocrit 35.7 (L) 41.0 - 53.0 % MCV 94.4 80.0 - 100.0 fL MCH 31.7 26.0 - 34.0 pg MCHC 33.6 31.0 - 37.0 g/dL Platelets 159 150 - 400 K/mcL RDW - CV 16.6 (H) 11.6 - 14.8 % MPV 9.6 9.0 - 15.5 fL Neutrophils 65.4 % Lymphocytes 11.1 % Monocytes 13.5 % Eosinophils 9.7 % Basophils 0.3 % Neutrophils Abs 3.77 1.70 - 7.00 K/mcL Lymphocytes Abs 0.64 (L) 0.90 - 4.00 K/mcL Monocytes Abs 0.78 0.30 - 0.90 K/mcL Eosinophils Abs 0.56 (H) 0.00 - 0.50 K/mcL Basophils Abs 0.02 0.00 - 0.30 K/mcL Nucleated RBC 0.0 % Nucleated RBC Abs 0.00 0.00 - 0.00 K/mcL Specimen Performing Laboratory Blood [facility] [address] [place] [address] Comprehensive Metabolic Panel (07/16/2017 1:14 PM) Component Value Ref Range Sodium 132 (L) 135 - 145 mmol/L Potassium 4.0 3.5 - 5.1 mmol/L Chloride 95 (L) 98 - 108 mmol/L Bicarbonate 26 21 - 32 mmol/L Anion Gap 15 10 - 20 mmol/L Glucose 150 (H) 65 - 99 mg/dL BUN 7 (L) 8 - 25 mg/dL Creatinine 0.72 (L) 0.80 - 1.30 mg/dL eGFR 91 >=60 mL/min/1.73 m2 BUN/Creatinine Ratio 9.7 (L) 10.0 - 20.0 Total Protein 6.0 6.0 - 8.0 g/dL Albumin 3.5 3.2 - 5.2 g/dL Calcium 8.6 8.4 - 10.2 mg/dL Alkaline Phosphatase 72 40 - 150 U/L AST 26 0 - 45 U/L ALT 19 0 - 40 U/L Total Bilirubin 0.5 0.0 - 1.3 mg/dL Specimen Performing Laboratory Blood [facility] [address] [place] [address] Narrative The eGFR should be used for monitoring renal function only and not for medication dosing. CBC and Differential (07/16/2017 1:14 PM) Specimen Performing Laboratory Blood Narrative The following orders were created for panel order CBC and Differential. Procedure? Abnormality? Status? ---------? ------? CBC Auto Differential[[id number]]?Abnormal?Final result? Please view results for these tests on the individual orders. in this encounter Visit Diagnoses Diagnosis Chemotherapy follow-up examination - Primary Malignant neoplasm of head of pancreas (HCC) Malignant neoplasm of head of pancreas Encounter for antineoplastic chemotherapy Anemia due to chemotherapy Antineoplastic chemotherapy induced anemia
--- OUTSIDE RECORDS SUMMARY | 2018-05-19 09:09 | XMS RPT_ITS | Summary of Care ---
:1940 Author Organization [facility] Address [address] [place] [address] Phone Care Team Providers Name Role Phone Unavailable Primary Care Provider Unavailable Reason for Referral MRI/CAT/PET Scan (Routine) Status Reason Specialty Diagnoses / Referred By Contact Referred To Contact Procedures Closed Radiology Diagnoses Pancreatic mass Sherif Valles MD Procedures CT Chest Thorax With Contrast [address] [address] MRI/CAT/PET Scan (Routine) Status Reason Specialty Diagnoses / Referred By Contact Referred To Contact Procedures Closed Radiology Diagnoses Pancreatic mass Sherif Valles MD Procedures CT Chest Thorax With Contrast [address] [address] Reason for Visit MRI/CAT/PET Scan (Routine) Status Reason Specialty Diagnoses / Referred By Contact Referred To Contact Procedures Closed Radiology Diagnoses Pancreatic mass Sherif Valles MD Procedures CT Chest Thorax With Contrast [address] [address] Encounter Details Date Type Department Care Team Description 10/16/2016 Hospital Encounter [facility] Sherif Valles MD Pancreatic mass Hospital CT Scan [address] [address] [place] [address] [phone] Allergies Active Allergy Reactions Severity Noted Date Comments Ciprofloxacin 12/01/2014 Penicillin 12/01/2014 Tetracycline 12/01/2014 as of this encounter Medications Prescription Sig. Disp. Refills Start Date End Date Status aspirin 81 MG EC Take 1 tablet by Active tabletIndications: mouth daily pt states he has not Reasons: pt been taking for a states he has not couple of weeks been taking for a couple of weeks. mometasone-formotero Inhale 2 puffs 2 01/11/2012 Active l (DULERA) 200-5 (two) times a mcg/actuation HFAA day. finasteride Take 1 tablet (5 30 tablet 11 04/16/2015 Active (PROSCAR) 5 mg mg total) by tablet mouth daily. OCEAN NASAL 0.65 % Instill 2 sprays 09/25/2015 Active nasal spray into each nostril as needed . alfuzosin Take 1 tablet (10 30 tablet 11 10/08/2015 Active (UROXATRAL) 10 mg 24 mg total) by hr mouth at bedtime. tabletIndications: Benign nodular prostatic hyperplasia with lower urinary tract symptoms fluocinonide (LIDEX) Apply topically 2 15 g 0 01/17/2016 01/16/2017 Active 0.05 % (two) times a day creamIndications: .5 gm BID to L Lichen simplex leg rash for 15 chronicus days. oxygen Inhale 2.5 L/min Active nightly. diphenoxylate-atropi Take 1 tablet by Active ne (LOMOTIL) mouth 4 (four) 2.5-0.025 mg per times a day as tablet needed for diarrhea. pancrelipase, Take 1 (one) 90 capsule 0 08/07/2016 08/07/2017 Active Hym-Slgw-Qtji, capsule (12,000 (CREON) units of lipase 12,000-38,000 total) by mouth 3 -60,000 unit CpDR (three) times a capsule day with meals. omeprazole Take 1 (one) 30 capsule 11 08/18/2016 08/18/2017 Active (PRILOSEC) 40 MG capsule (40 mg capsuleIndications: total) by mouth Generalized daily. abdominal pain as of this encounter Active Problems Problem Noted Date Pancreatic mass 10/11/2016 Prostatitis, chronic 11/10/2015 BPH with obstruction/lower urinary tract symptoms 11/04/2015 Elevated PSA 11/04/2015 Abnormal PSA 10/28/2015 Benign nodular prostatic hyperplasia with lower urinary tract symptoms 10/08/2015 Chronic obstructive pulmonary disease (HCC) 10/08/2015 Pure hypercholesterolemia 10/08/2015 as of this encounter Social History Tobacco Use Types Packs/Day Years Used Date Former Smoker 0.25 Smokeless Tobacco: Never Used Comments: 03/01 PPD Alcohol Use Drinks/Week oz/Week Comments Yes rarely Sex Assigned at Date Recorded Not on file as of this encounter Plan of Treatment Upcoming Encounters Date Type Specialty Care Team Description 10/17/2016 Office Visit Surgical Oncology Inder Guillen MD [address] [facility] [address] [place] [address] [phone] 10/25/2016 Office Visit Oncology Sherif Valles MD [address] [facility] [address] [place] [address] [phone] Health Maintenance Due Date Last Done Comments TETANUS EVERY 10 YR 1940 ZOSTER VACCINE 2001 PNEUMOCOCCAL VACCINE AGE 65+ (1 of 2 - 2006 PCV13) SEQUENTIAL INFLUENZA VACCINE (#1) 2016 COLONOSCOPY 07/27/2021 07/27/2016, 01/12/2010 as of this encounter Results CT Chest Thorax With Contrast (10/16/2016 12:36 PM) Specimen Performing Laboratory Applico [facility] Impressions 1. No pattern of metastatic disease in the chest. 2. Emphysema changes are seen greatest in the right upper lobe. 3. Atherosclerotic changes are present including coronaries. [facility] Workstation ID:? [id number] Narrative EXAMINATION: CT CHEST WITH CONTRAST DATE: 10/16/2016 HISTORY: pancreatic mass, very suspicious for pancreatic cancer for staging evaluation. Reason for exam?:pancreatic mass staging Injury/Trauma or Illness?:Illness/Other TECHNIQUE: CTA of the chest was performed with intravenous infusion of 75 mL Isovue-370. Dose reduction techniques were achieved by using automated exposure control and/or adjustment of mA and/or kV according to patient size and/or use of iterative reconstruction technique. COMPARISON: None. FINDINGS: Moderate emphysema changes are present greatest in the right upper lobe.?No pulmonary infiltrate or pulmonary mass.?No pleural or pericardial effusion.?No lymphadenopathy.?Atheromatous changes are present including the coronaries.?The heart is not enlarged.?No suspicious mass in the visualized root of the neck. Tiny hepatic hypodensity is unchanged and nonspecific but could relate to a cyst. Procedure Note Interface, Rad In Leroy Cooperq - 10/16/2016 5:35 PM EDT EXAMINATION: CT CHEST WITH CONTRAST DATE: 10/16/2016 HISTORY: pancreatic mass, very suspicious for pancreatic cancer for staging evaluation. Reason for exam?:pancreatic mass staging Injury/Trauma or Illness?:Illness/Other TECHNIQUE: CTA of the chest was performed with intravenous infusion of 75 mL Isovue-370. Dose reduction techniques were achieved by using automated exposure control and/or adjustment of mA and/or kV according to patient size and/or use of iterative reconstruction technique. COMPARISON: None. FINDINGS: Moderate emphysema changes are present greatest in the right upper lobe. No pulmonary infiltrate or pulmonary mass. No pleural or pericardial effusion. No lymphadenopathy. Atheromatous changes are present including the coronaries. The heart is not enlarged. No suspicious mass in the visualized root of the neck. Tiny hepatic hypodensity is unchanged and nonspecific but could relate to a cyst. IMPRESSION: 1. No pattern of metastatic disease in the chest. 2. Emphysema changes are seen greatest in the right upper lobe. 3. Atherosclerotic changes are present including coronaries. PRR/mjr Workstation ID: [id number] in this encounter Visit Diagnoses Diagnosis Pancreatic mass Unspecified disease of pancreas in this encounter Administered Medications Inactive Administered Medications - up to 3 most recent administrations Medication Order MAR Action Action Date Dose Rate Site iopamidol (ISOVUE-370) 76 % Contrast Administered 10/16/2016 12:36 EDT 75 mL injection 75 mL 75 mL, Intravenous, Once in imaging, contrast, Starting 10/16/16 at 1232, For 1 dose in this encounter Insurance Payer Benefit Plan / Group Subscriber ID Type Phone Address [employer] [id number] [phone] [id number] as of this encounter
--- OUTSIDE RECORDS SUMMARY | 2018-05-19 09:09 | XMS RPT_ITS | Summary of Care ---
:1940 Author Organization [facility] Address [address] [id number] Care Team Providers Name Role Phone Jus Allison MD Primary Care Provider Sherif Valles MD Unavailable Varsha Pineda CNP Unavailable Fran Burris MD Unavailable Inder Guillen MD Unavailable Estefany Gaxiola RN Unavailable Unavailable Reason for Visit Auth/Cert Status Reason Specialty Diagnoses / Procedures Referred By Contact Referred To Contact Encounter Details Date Type Department Care Team Description 04/19/2017 Home Health Admission [facility] [address] [place] [address] Allergies Active Allergy Reactions Severity [...] (one) 90 capsule 11 03/02/2017 03/02/2018 Active Oms-Hsyn-Qjcj, capsule (12,000 (CREON) 12,000-38,000 units of lipase [...] Encounters Date Type Specialty Care Team Description 08/01/2017 Radiation Oncology Radiation Oncology Cole Rivera Arrived MD [address] [address] [phone] 08/13/2017 Nurse Only Infusion Therapy 08/13/2017 Appointment Radiology Sherif Valles MD [address] [id number] 08/16/2017 Radiation Oncology Radiation Oncology Cole Rivera MD [address] [address] [phone] 08/16/2017 Office Visit Oncology Sherif Valles MD 801 [facility] [address] [place] [address] [phone] Health Maintenance Due Date Last Done Comments TETANUS EVERY 10 YR 1940 ZOSTER VACCINE 2001 PNEUMOCOCCAL VACCINE AGE 65+ (1 of 2006 2 - PCV13) SEQUENTIAL INFLUENZA VACCINE 10/27/2017 (Season Ended) Low-dose CT Lung Cancer Screen 04/24/2018 04/24/2017, 02/22/2017, 01/03/2017, Additional history exists as of this encounter Implants Implanted Type Area Haircutter Device Expiration Model / Identifier Date Serial / Lot Port Implanted Mri Isp W/8fr Cath Powerport - [id number] Catheter - Right: BARD PERIP 12/26/2017 [id number] / Implanted: Qty: 1 on 12/04/2016 by Kota Vences MD Implant Subclavian / [id number] Cath 90cm Peritoneal Open End W/Wall Slits - [id number] Catheter - N/A: Abdomen MEDTRO SHAGGY [id number] / Implanted: Qty: 1 on 01/24/2017 by Inder Guillen MD Implant / Sealant 10ml Floseal Matrix Hemostatic W/Ndl-Free Adapter - [id number] N/A: Abdomen TOBAR BIO 03/20/2018 [id number] / Implanted: Qty: 2 on 01/24/2017 by Inder Guillen MD / [id number] as of this encounter
--- OUTSIDE RECORDS SUMMARY | 2018-05-19 09:09 | XMS RPT_ITS | Summary of Care ---
:1940 Author Organization [facility] Address [address] [place] [address] Phone Care Team Providers Name Role Phone Jus Allison MD Primary Care Provider Reason for Visit Reason Comments pancreatic mass Encounter Details Date Type Department Care Team Description 11/07/2016 Office Visit [facility] Sherif Valles MD Malignant neoplasm of Center Oncology 801 [facility] head of pancreas Clinic [address] (HCC) (Primary Dx) [address] [place] [address] [place] [address] [phone] Allergies Active Allergy Reactions Severity Noted Date [...] (one) 90 capsule 0 08/07/2016 08/07/2017 Active Hrs-Jvha-Bekp, (CREON) capsule (12,000 12,000-38,000 -60,000 units of [...] encounter Active Problems Problem Noted Date Pancreatic cancer (HCC) 11/07/2016 Pancreatic mass 10/11/2016 Prostatitis, chronic 11/10/2015 BPH [...] Vital Sign Reading Time Taken Blood Pressure 165/81 11/07/2016 1:34 PM EDT Pulse 96 11/07/2016 1:34 PM EDT Temperature 36.7 ??C (98 ??F) 11/07/2016 1:34 PM EDT Respiratory Rate - - Oxygen Saturation - - Inhaled Oxygen Concentration - - Weight 75.6 kg (166 lb 9.6 oz) 11/07/2016 1:34 PM EDT Height - - Body Mass Index 25.33 11/07/2016 1:34 PM EDT in this encounter Progress Notes Magda Pierre RN - 11/07/2016 2:20 PM EDTDiscussed with patient and treatment plan (calendar given) and purpose of treatment. Teaching sheets for gemzar and abraxane given with verbal explanation and frequency of drugs. Instructed on when to get labs drawn. Scheduled for teaching next week. Packet of information on pancreatic cancer given to patient. Questions answered. Verbalized understanding. Consent for chemotherapy obtained.Sherif Valles MD - 11/07/2016 1:14 PM EDTFormatting of this note may be different from the original. [facility] [address] [place] [phone] Hematology and Oncology Progress Note Patient Name: Elbert Canales MR #: [id number] : @ [facility] #: [id number] Date of Service: 11/07/16 Clinician: Sherif Valles MD Diagnosis: Pancreatic cancer, stage IB (T2N0M0), inv head and uncinate process measuring 2.1 cm, Dx-10/31/2016. Treatment: Neoadjuvant chemotherapy with Gemzar and Abraxane (d1,[id number]) Chief Complaint: Follow up, see below; History [...] Colonic diverticulosis without evidence of diverticulitis. 7. Szut-it-byjuavey constipation. 8. Moderate prostatomegaly. MRI Abdomen on [...] on 10/31/2016, by Dr. Partha Muñoz at [facility] which showed a mass in thepancreatic head and FNA was performed, there was no evidence of significant pathology in the left lobe of liver, pancreatic parenchymal abnormality consisting of atrophy, hyperechoic strands, hyperechoic foci and lobularity were noted in the pancreatic body and in the pancreatic tail. Normal lymph nodes were visualized. Pathology was significant for positive malignant cells consistent with adenocarcinoma. The patient is here for followup today. He is doing well, denies abdominal pain, any weight loss, nausea, vomiting, constipation, diarrhea, appetite is good. Assessment/Plan: Pancreatic cancer (adenocarcinoma), involving pancreatic head and uncinate process, measuring 2.1 cm, stage 1B (T2-N0-M0), borderline resectable, with mild involvement of the lateral wall of the portalvein. His baseline CA19-9 level is elevated at 354. He was evaluated by Dr. Guillen and recommended to have neoadjuvant chemotherapy, with gemcitabine and Abraxane. I have reviewed the imaging studies, pathology finding, and NCCN guidelines for further management of pancreatic cancer, and I agree with Dr. Guillen's recommendation for neoadjuvant chemotherapy. He has significant medical comorbidities and I have recommended and agree with chemotherapy with gemcitabi ne plus Abraxane, I do not believe that he will be able to tolerate Folfirinox- like treatment. We will plan for 3 cycles of chemotherapy and then re-stage, and depending on response, he may need chemoradiation or will refer him for surgical resection. He is in agreement with the chemotherapy as we discussed and he and his want to start the chemotherapy as soon as possible, which we will plan tostart sometime next week after precertification. He was provided with drug information, chemotherapy consent was signed, and he will be scheduled for chemotherapy teaching as well. I discussed and reviewed all the side effect profile of this chemotherapy regimen, including but not limited to, cytopenia, allergic reaction, neuropathy, hair loss, liver and renal and abnormalities, etc. I did advise them that we will monitor him closely during the chemotherapy and depending on his tolerance and sideeffects, we might have to hold the chemotherapy or reduce the dose of the chemotherapy accordingly.They voiced understanding and were agreeable with the above plan. I will see him back in about 2 weeks, with repeat labs with a CBC and CMP panel. I have answered all their questions today and I have advised him to call the clinic early as needed. Today's visit occupied 40 minutes of face to face time interviewing, reviewing labs and data and examining the patient, of which >50% spent in counseling, answering questions and coordinating patient care. I reviewed the patient's labs and scan results and discuss the treatment plan at length. Review of Systems: The following system(s) were [...] mood and affect. Vital Signs: BP (!) 165/81 (BP Location: Left arm) Pulse 96 Temp 98 ??F (36.7 ??C) (Temporal) Wt 75.6 kg (166 lb 9.6 oz) BMI 25.33 kg/m2 Last Height and Weight with BMI: 75.6 kg (166 lb 9.6 oz) Body mass index is 25.33 kg/(m^2). PMH/PSH/FH/SH: Past Medical History: Diagnosis Date ??? Arthritis ??? BPH (benign prostatic hyperplasia) ??? Cancer (HCC) skin cancer ??? Cataract ??? Chronic diarrhea current problem (07/21/16), stool specimen positive for blood ([facility]) per pt ??? Colon polyps 2010 benign ??? Complication of anesthesia difficulty waking up ??? COPD (chronic obstructive pulmonary disease) (HCC) ??? History of stress test ??? Pancreatic mass Past Surgical History: Procedure Laterality Date ??? APPENDECTOMY ??? COLONOSCOPY 2009 benign polyps found ??? COLONOSCOPY N/A 07/27/2016 Procedure: COLONOSCOPY; Surgeon: Kota Vences MD; Location: [facility]; Service: ??? PROSTATE BIOPSY ??? [...] Inhale 2.5 L/min nightly. Historical Provider, pancrelipase, Qkk-Twnx-Zpsw, (CREON) 12,000-38,000 -60,000 unit CpDR capsule Take 1 (one) capsule (12,000 units of lipase total) by mouth 3 (three) times a day with meals. 08/07/16 08/07/17 Jus Allison MD LABS: Pertinent latest labs reviewed in EMR and discussed with patient. WBC Date Value Ref Range Status 10/11/2016 6.45 4.50 - 11.00 K/mcL Final 07/07/2014 5.35 4.50 - 11.00 K/MCL RBC Date Value Ref Range Status 10/11/2016 4.71 4.50 - 5.90 M/mcL Final 07/07/2014 4.73 4.50 - 5.90 M/MCL Hemoglobin Date Value Ref Range Status 10/11/2016 14.8 13.5 - 17.5 g/dL Final 07/07/2014 15.3 13.5 - 17.5 G/DL Hematocrit Date Value Ref Range Status 10/11/2016 43.5 41.0 - 53.0 % Final 07/07/2014 45.2 41.0 - 53.0 % MCV Date Value Ref Range Status 10/11/2016 92.4 80.0 - 100.0 fL Final 07/07/2014 95.6 80.0 - 100.0 FL MCH Date Value Ref Range Status 10/11/2016 31.4 26.0 - 34.0 pg Final 07/07/2014 32.3 26.0 - 34.0 PG MCHC Date Value Ref Range Status 10/11/2016 34.0 31.0 - 37.0 g/dL Final Platelets Date Value Ref Range Status 10/11/2016 198 150 - 400 K/mcL Final RDW Date Value Ref Range Status 07/07/2014 12.5 11.6 - 14.8 % RDW - CV Date Value Ref Range Status 10/11/2016 12.8 11.6 - 14.8 % Final Sodium Date Value Ref Range Status 10/11/2016 134 (L) 135 - 145 mmol/L Final 07/07/2014 136 135 - 145 MMOL/L Potassium Date Value Ref Range Status 10/11/2016 4.6 3.5 - 5.1 mmol/L Final 07/07/2014 4.4 3.5 - 5.1 MMOL/L Chloride Date Value Ref Range Status 10/11/2016 96 (L) 98 - 108 mmol/L Final 07/07/2014 98 98 - 108 MMOL/L Bicarbonate Date Value Ref Range Status 10/11/2016 29 21 - 32 mmol/L Final 07/07/2014 28 21 - 32 MMOL/L Anion Gap Date Value Ref Range Status 10/11/2016 14 10 - 20 mmol/L Final Glucose Date Value Ref Range Status 10/11/2016 124 (H) 65 - 99 mg/dL Final 07/07/2014 94 65 - 99 MG/DL BUN Date Value Ref Range Status 10/11/2016 9 8 - 25 mg/dL Final 07/07/2014 12 8 - 25 MG/DL Creatinine Date Value Ref Range Status 10/11/2016 0.76 (L) 0.80 - 1.30 mg/dL Final 10/05/2016 0.7 (L) 0.8 - 1.3 mg/dL Final Serum Creatinine Date Value Ref Range Status 01/11/2012 0.9 0.8 - 1.3 MG/DL eGFR Date Value Ref Range Status 10/11/2016 89 >=60 mL/min/1.73 m2 Final GFR, Non Date Value Ref Range Status 01/11/2012 >60 >60 Comment: Test Units:mL/min/1.73m2 This Calculation is for Non Patients BUN/Creatinine Ratio Date Value Ref Range Status 10/11/2016 11.8 10.0 - 20.0 Final BUN/Creat Ratio Date Value Ref Range Status 07/07/2014 15.0 10.0 - 20.0 Comment: The above 18 analytes were performed by [address] [address] Ordered on: 07/07/2014, EMMA ALLISON Tests Performed at: [facility] (Unless Otherwise Specified) [address] [place] [address], [address] - [facility] #[id number] [facility] - Order ID:[id number] Sample ID:[id number] Total Protein Date Value Ref Range Status 10/11/2016 7.4 6.0 - 8.0 g/dL Final Albumin Date Value Ref Range Status 10/11/2016 4.3 3.2 - 5.2 g/dL Final Calcium Date Value Ref Range Status 10/11/2016 9.4 8.4 - 10.2 mg/dL Final 07/07/2014 10.0 8.4 - 10.2 MG/DL Alkaline Phosphatase Date Value Ref Range Status 10/11/2016 76 40 - 150 U/L Final AST Date Value Ref Range Status 10/11/2016 17 0 - 45 U/L Final ALT Date Value Ref Range Status 10/11/2016 13 0 - 40 U/L Final Total Bilirubin Date Value Ref Range Status 10/11/2016 0.5 0.0 - 1.3 mg/dL Final Diagnostic Tests: Pertinent available radiologic studies were reviewed. Follow Up: Return in about 2 weeks (around 11/21/2016) for Office Visit, Infusion - See Treatment Plan, Labs - See Treatment Plan. Orders Placed This Encounter Procedures ??? CBC and Differential Standing Status: Standing Number of Occurrences: 19 Standing Expiration Date: 11/07/2017 ??? Comprehensive Metabolic Panel Standing Status: Standing Number of Occurrences: 7 Standing Expiration Date: 11/07/2017 ??? Physician Communication For outpatients, please order the General Infusion Orders Therapy Plan in the Gen Infusion Orders navigator section. For inpatients, please order General Infusion Order Set in the Orders navigator section. ? Sherif Valles MD [facility] [address], [address] [place] [address] [phone] CC: MD Inder Fink MD in this encounter Plan of Treatment Upcoming Encounters Date Type Specialty Care Team Description 11/14/2016 Nurse Only Infusion Therapy Sherif Valles MD [address] [place] [phone] 11/16/2016 Office Visit Oncology Sherif Valles MD [address] [place] [phone] 11/16/2016 Infusion/Injection Infusion Therapy Sherif Valles MD [address] [phone] Scheduled Tests Name Priority Associated Diagnoses Order Schedule CBC and Differential Routine Malignant neoplasm of See Treatment Plan for 19 head of pancreas (HCC) Occurrences starting 11/07/2016 until 11/07/2017 Comprehensive Metabolic Routine Malignant neoplasm of See Treatment Plan for 7 Panel head of pancreas (HCC) Occurrences starting 11/07/2016 until 11/07/2017 Health Maintenance Due Date Last Done Comments [...] / Group Subscriber ID Type Phone Address [facility] MANAGED MEDICARE [facility] [id number] HCAP/JESSICA 80% [facility] [id number] [phone] [place] [address] as of this encounter
--- OUTSIDE RECORDS SUMMARY | 2018-05-19 09:09 | XMS RPT_ITS | Summary of Care ---
:1940 Author Organization [facility] Address [address] [place] [address] Phone Care Team Providers Name Role Phone Jus Allison MD Primary Care Provider Sherif Valles MD Unavailable Varsha Pineda HEAVY EQUIPMENT SERVICE TECHNICIAN Unavailable Reason for Visit Reason Comments malignant neoplasm of head of pancreas Encounter Details Date Type Department Care Team Description 11/30/2016 Office Visit [facility] Sherif Valles MD Encounter for Center Oncology [address] [facility] antineoplastic Clinic [address] chemotherapy (Primary [address] [place] [address] Dx);[place] [address] follow-up [phone] examination;Malignant neoplasm of head of pancreas (HCC);Rash Allergies Active Allergy Reactions Severity Noted Date [...] by mouth daily. OCEAN NASAL 0.65 % nasal Instill 2 09/25/2015 Active spray sprays into each nostril as needed . alfuzosin (UROXATRAL) 10 Take 1 tablet 30 tablet 11 10/08/2015 Active mg 24 hr (10 mg total) tabletIndications: by mouth at Benign nodular prostatic bedtime. hyperplasia with lower urinary tract symptoms fluocinonide (LIDEX) Apply topically 15 g 0 01/17/2016 Active 0.05 % creamIndications: 2 (two) times a 7 Lichen simplex chronicus day .5 gm BID to L leg rash for 15 days. oxygen Inhale 2.5 Active L/min nightly. diphenoxylate-atropine Take 1 tablet Active (LOMOTIL) 2.5-0.025 mg by mouth 4 per tablet (four) times a day as needed for diarrhea. pancrelipase, Take 1 (one) 90 capsule 0 08/07/2016 Active Qcr-Uaxm-Evhk, (CREON) capsule (12,000 8 12,000-38,000 -60,000 units of lipase unit CpDR capsule total) by mouth 3 (three) times a day with meals. omeprazole (PRILOSEC) 40 Take 1 (one) 30 capsule 11 08/18/2016 Active MG capsuleIndications: capsule (40 mg 8 Generalized abdominal total) by mouth pain daily. prochlorperazine Take 1 (one) 30 tablet 3 11/07/2016 Active (COMPAZINE) 10 MG tablet (10 mg tabletIndications: total) by mouth Malignant neoplasm of every 6 (six) head of pancreas (HCC) hours as needed for nausea. dexamethasone (DECADRON) Take 2 (two) 12 tablet 6 11/20/2016 Active 4 MG tablet tablets (8 mg 7 total) by mouth 2 (two) times a day with meals START TAKING DAY AFTER CHEMO FOR 2 DAYS. methylPREDNISolone follow package 21 tablet 0 11/30/2016 Active (MEDROL DOSEPACK) 4 mg directions. 7 tabletIndications: Malignant neoplasm of head of pancreas (HCC), Rash as of this encounter Active Problems Problem [...] Vital Sign Reading Time Taken Blood Pressure 140/76 11/30/2016 9:03 AM EDT Pulse 92 11/30/2016 9:03 AM EDT Temperature 36.6 ??C (97.9 ??F) 11/30/2016 9:03 AM EDT Respiratory Rate - - Oxygen Saturation 97% 11/30/2016 9:03 AM EDT Inhaled Oxygen Concentration - - Weight 74.3 kg (163 lb 14.4 oz) 11/30/2016 9:03 AM EDT Height - - Body Mass Index 24.92 11/30/2016 9:03 AM EDT in this encounter Progress Notes Sherif Valles MD - 11/30/2016 9:03 AM EDTFormatting of this note may be different from the original. [facility] [address] [place] [phone] Hematology and Oncology Progress Note Patient Name: Elbert Canales MR #: [id number] : @ [facility] #: [id number] Date of Service: 11/30/16 Clinician: Sherif Valles MD Diagnosis: Pancreatic cancer, stage IB (T2N0M0), inv head and uncinate process measuring 2.1 cm, Dx-10/31/2016. Treatment: Neoadjuvant chemotherapy with Gemzar and Abraxane (d1,8,[id number]) started 11/16/16. Chief Complaint: Follow up, pancreatic [...] Colonic diverticulosis without evidence of diverticulitis. 7. Hdiv-yi-mpnlqcse constipation. 8. Moderate prostatomegaly. MRI Abdomen on [...] on 10/31/2016, by Dr. Partha Muñoz at [place] which showed a mass in thepancreatic head [...] CMP profile, CA 19-9 at 345. He is here for follow up, rash resolved after medrol pack, he is feeling back to baseline now. He denies fever, chills, shortness of breath, cough. His appetite is very good. Assessment/Plan: Pancreatic cancer (adenocarcinoma), involving [...] resection as per Dr. Guillen. He had a drug reaction with itching, rash, and minimal low-grade fever and we suspect zofran as the culprit, as it can cause low-grade fever and rash, also, itching. At this time, we will plan to change Zofran to Decadron 12 mg IV and pre chemo, as well as a day 2 and 3 of Decadron 8 mg twice a day for the delayed nausea. We will also increase the Abraxane infusion from 30 minutes to over 60 minutes. I am not sure if burning sensation is related to abaxane infusion but gemzar can cause this. Today reviewed the labs, will Plan to give d8 (delayed) chemo today. I have prescribed a medrol pack per their request to be handy as needed. We will see him back on day 15 of chemotherapy with repeat labs next wk. The patient and his voiced understanding with [...] normal mood and affect. Vital Signs: BP 140/76 (BP Location: Left arm) Pulse 92 Temp 97.9 ??F (36.6 ??C) (Temporal) Wt 74.3 kg (163 lb 14.4 oz) SpO2 97% BMI 24.92 kg/m2 Last Height and Weight with BMI: 74.3 kg (163 lb 14.4 oz) Body mass index is 24.92 kg/(m^2). PMH/PSH/FH/SH: Past Medical History: Diagnosis Date ??? Arthritis ??? BPH (benign prostatic hyperplasia) ??? Cancer (HCC) skin cancer ??? Cataract ??? Chronic diarrhea current problem (07/21/16), stool specimen positive for blood ([facility]) per pt ??? Colon polyps 2010 benign ??? Complication of anesthesia difficulty waking up ??? COPD (chronic obstructive pulmonary disease) (HCC) ??? History of stress test ??? Pancreatic mass Past Surgical History: Procedure Laterality Date ??? APPENDECTOMY ??? COLONOSCOPY 2009 benign polyps found ??? COLONOSCOPY N/A 07/27/2016 Procedure: COLONOSCOPY; Surgeon: Kota Vences MD; Location: [facility]; Service: ??? PROSTATE BIOPSY ??? SINUS [...] Inhale 2.5 L/min nightly. Historical Provider, pancrelipase, Pch-Jtud-Tqxc, (CREON) 12,000-38,000 -60,000 unit CpDR capsule Take 1 (one) capsule (12,000 units of lipase total) by mouth 3 (three) times a day with meals. 08/07/16 08/07/17 Jus Allison MD LABS: Pertinent latest labs reviewed in EMR and discussed with patient. WBC Date Value Ref Range Status 11/29/2016 6.75 4.50 - 11.00 K/mcL Final 07/07/2014 5.35 4.50 - 11.00 K/MCL RBC Date Value Ref Range Status 11/29/2016 4.43 (L) 4.50 - 5.90 M/mcL Final 07/07/2014 4.73 4.50 - 5.90 M/MCL Hemoglobin Date Value Ref Range Status 11/29/2016 14.0 13.5 - 17.5 g/dL Final 07/07/2014 15.3 13.5 - 17.5 G/DL Hematocrit Date Value Ref Range Status 11/29/2016 40.9 (L) 41.0 - 53.0 % Final 07/07/2014 45.2 41.0 - 53.0 % MCV Date Value Ref Range Status 11/29/2016 92.3 80.0 - 100.0 fL Final 07/07/2014 95.6 80.0 - 100.0 FL MCH Date Value Ref Range Status 11/29/2016 31.6 26.0 - 34.0 pg Final 07/07/2014 32.3 26.0 - 34.0 PG MCHC Date Value Ref Range Status 11/29/2016 34.2 31.0 - 37.0 g/dL Final Platelets Date Value Ref Range Status 11/29/2016 232 150 - 400 K/mcL Final RDW Date Value Ref Range Status 07/07/2014 12.5 11.6 - 14.8 % RDW - CV Date Value Ref Range Status 11/29/2016 12.9 11.6 - 14.8 % Final Sodium Date Value Ref Range Status 11/29/2016 135 135 - 145 mmol/L Final 07/07/2014 136 135 - 145 MMOL/L Potassium Date Value Ref Range Status 11/29/2016 4.8 3.5 - 5.1 mmol/L Final 07/07/2014 4.4 3.5 - 5.1 MMOL/L Chloride Date Value Ref Range Status 11/29/2016 94 (L) 98 - 108 mmol/L Final 07/07/2014 98 98 - 108 MMOL/L Bicarbonate Date Value Ref Range Status 11/29/2016 29 21 - 32 mmol/L Final 07/07/2014 28 21 - 32 MMOL/L Anion Gap Date Value Ref Range Status 11/29/2016 17 10 - 20 mmol/L Final Glucose Date Value Ref Range Status 11/29/2016 153 (H) 65 - 99 mg/dL Final 07/07/2014 94 65 - 99 MG/DL BUN Date Value Ref Range Status 11/29/2016 13 8 - 25 mg/dL Final 07/07/2014 12 8 - 25 MG/DL Creatinine Date Value Ref Range Status 11/29/2016 0.71 (L) 0.80 - 1.30 mg/dL Final 10/05/2016 0.7 (L) 0.8 - 1.3 mg/dL Final Serum Creatinine Date Value Ref Range Status 01/11/2012 0.9 0.8 - 1.3 MG/DL eGFR Date Value Ref Range Status 11/29/2016 92 >=60 mL/min/1.73 m2 Final GFR, Non Date Value Ref Range Status 01/11/2012 >60 >60 Comment: Test Units:mL/min/1.73m2 This Calculation is for Non Patients BUN/Creatinine Ratio Date Value Ref Range Status 11/29/2016 18.3 10.0 - 20.0 Final BUN/Creat Ratio Date Value Ref Range Status 07/07/2014 15.0 10.0 - 20.0 Comment: The above 18 analytes were performed by [address] [address] Ordered on: 07/07/2014, EMMA ALLISON Tests Performed at: [facility] (Unless Otherwise Specified) [address] [place] [address], [address] [facility] #[id number] [facility] - Order ID:[id number] Sample ID:[id number] Total Protein Date Value Ref Range Status 11/29/2016 6.3 6.0 - 8.0 g/dL Final Albumin Date Value Ref Range Status 11/29/2016 3.8 3.2 - 5.2 g/dL Final Calcium Date Value Ref Range Status 11/29/2016 9.2 8.4 - 10.2 mg/dL Final 07/07/2014 10.0 8.4 - 10.2 MG/DL Alkaline Phosphatase Date Value Ref Range Status 11/29/2016 67 40 - 150 U/L Final AST Date Value Ref Range Status 11/29/2016 12 0 - 45 U/L Final ALT Date Value Ref Range Status 11/29/2016 20 0 - 40 U/L Final Total Bilirubin Date Value Ref Range Status 11/29/2016 0.4 0.0 - 1.3 mg/dL Final Diagnostic Tests: Pertinent available radiologic studies were reviewed. Follow Up: Return in about 1 week (around 12/07/2016) for Office Visit, Infusion - See Treatment Plan, Labs - See Treatment Plan. No orders of the defined types were placed in this encounter. ? Sherif Valles MD [facility] [address] [facility], [address] [place] [address] [phone] CC: MD Inder Fink MD in this encounter Plan of Treatment Upcoming Encounters Date Type Specialty Care Team Description 12/07/2016 Office Visit Oncology Sherif Valles MD [address] [facility] [address] [place] [address] 12/07/2016 Infusion/Injection Infusion Therapy Health Maintenance Due Date Last Done Comments TETANUS EVERY 10 YR 1940 ZOSTER VACCINE 2001 PNEUMOCOCCAL VACCINE AGE 65+ (1 of 2 - 2006 PCV13) SEQUENTIAL INFLUENZA VACCINE (#1) 2016 COLONOSCOPY 07/27/2021 07/27/2016, 01/12/2010 as of this encounter Visit Diagnoses Diagnosis Encounter for antineoplastic chemotherapy - Primary Chemotherapy follow-up examination Malignant neoplasm of head of pancreas (HCC) Malignant neoplasm of head of pancreas Rash Rash and other nonspecific skin eruption in this encounter Insurance Payer Benefit Plan / Group Subscriber ID Type Phone Address [employer] MANAGED MEDICARE [employer] M[employer] G[employer] PLUS HMO [id number] [facility]/JESSICA 80% JESSICA [id number] as of this encounter
--- OUTSIDE RECORDS SUMMARY | 2018-05-19 09:09 | XMS RPT_ITS | Summary of Care ---
:1940 Author Organization [facility] Address [address] [id number] Care Team Providers Name Role Phone Jus Allison MD Primary Care Provider Sherif Valles MD Unavailable Varsha Pineda CNP Unavailable Fran Burris MD Unavailable Inder Guillen MD Unavailable Estefany Gaxiola RN Unavailable Unavailable Reason for Visit Reason Comments Cancer Pancreatic Encounter Details Date Type Department Care Team Description 08/16/2017 Radiation Oncology [facility] Malignant neoplasm Center Radiation MD Rodolfo of head of pancreas Oncology [address] [facility] ([facility]) (Primary Dx) [address] [facility] [address] [place] [phone] Allergies Active Allergy Reactions Severity Noted Date [...] (one) 90 capsule 11 03/02/2017 03/02/2018 Active Ggt-Ojna-Gnqw, (CREON) capsule (12,000 12,000-38,000 -60,000 units of [...] Vital Sign Reading Time Taken Blood Pressure 153/73 08/16/2017 11:39 AM EDT Pulse 68 08/16/2017 11:39 AM EDT Temperature 37 ??C (98.6 ??F) 08/16/2017 11:39 AM EDT Respiratory Rate - - Oxygen Saturation 98% 08/16/2017 11:39 AM EDT Inhaled Oxygen Concentration - - Weight 59.5 kg (131 lb 1.6 oz) 08/16/2017 11:39 AM EDT Height 172.7 cm (5' 8) 08/16/2017 11:39 AM EDT Body Mass Index 19.93 08/16/2017 11:39 AM EDT in this encounter Progress Notes Cole Rivera MD - 08/16/2017 3:26 PM EDTFormatting of this note may be different from the original. Cole Rivera MD Radiation Oncology [address] [place] [address], [address] [phone] RADIATION ONCOLOGY ESTABLISHED PATIENT VISIT NOTE DIAGNOSIS: SNOMED CT(R) 1. Malignant neoplasm of head of pancreas (HCC) MALIGNANT TUMOR OF HEAD OF PANCREAS HISTOLOGY: Adenocarcinoma STAGE: Cancer Staging Malignant neoplasm of head of pancreas (HCC) Staging form: Pancreas, AJCC 7th Edition - Clinical stage from 08/16/2017: Stage IIB (yT3, N1, M0) - Signed by Cole Rivera MD on 08/16/2017 Histopathologic type: Adenocarcinoma, NOS PERFORMANCE STATUS: ECOG 2 DATES OF TREATMENT: 06/12/2017???07/19/2017 PATIENT IDENTIFICATION Hi Canales is a 77 y.o. male who returns to Radiation Oncology with a known diagnosis of pancreatic cancer status post resection and adjuvant chemoradiation therapy. HISTORY The patient recently completed chemoradiation therapy to the pancreatic bed and returns today for routine follow-up and acute toxicity check. He was evaluated by medical oncology earlier today and was offered further adjuvant chemotherapy with 5-FU. However, the patient is just now recovering from chemoradiation therapy and is willing to risk a higher chance of recurrence rather than suffer from the continued toxicity of adjuvant chemotherapy. CT of the chest, abdomen, and pelvis was obtained prior to today's visit. Shows no evidence of recurrence. His weight remains stable. His appetite is returning as is his normal taste. He reports no shortness of breath, new musculoskeletal complaints, or abdominal pain. He continues to have some occasional loose bowel movements but this is well controlled with his pancreatic enzyme replacement and recovery from 5-FU chemotherapy. REVIEW OF SYSTEMS Constitutional: Negative. HENT: Positive for tinnitus (since ). Eyes: Positive for eye problems (blurred vision worse with chemo/radiation). Respiratory: Positive for cough (sinus drainage) and shortness of breath (with activity). Cardiovascular: Negative. Gastrointestinal: Positive for diarrhea. Constipation: mostly in the morning a few times. Taste improving Endocrine: Negative. Genitourinary: Negative. Musculoskeletal: Negative. Skin: Raised areas on arms Neurological: Positive for light-headedness (at times with quick position changes). Hematological: Bruises/bleeds easily. Psychiatric/Behavioral: Negative. Pt has a living will PAST MEDICAL HISTORY Past Medical History: Diagnosis Date ??? Arthritis ??? BPH (benign prostatic hyperplasia) ??? Cancer (HCC) skin cancer ??? Cataract ??? Chemotherapy adverse reaction 12/01/2016 has had 2 treatments-- getting port now. Had adverse reaction to zofran after first treatment ??? Chronic diarrhea current problem (07/21/16), stool specimen [facility] blood ([facility] per pt ??? Colon polyps 2010 benign ??? Complication of anesthesia difficulty waking up ??? COPD (chronic obstructive pulmonary disease) (HCC) ??? GERD (gastroesophageal reflux disease) ??? History of stress test ??? Pancreatic cancer (HCC) 11/12 ??? Pancreatic mass MEDICATIONS Current Outpatient Prescriptions: ??? aspirin 81 mg chewable tablet, Chew and Swallow 1 (one) tablet (81 mg total) daily., Disp: 1 tablet, Rfl: 0 ??? loperamide (IMODIUM) 2 mg capsule, Take 2 mg by mouth as needed for diarrhea., Disp: , Rfl: ??? mometasone-formoterol (DULERA) 200-5 mcg/actuation HFAA, Inhale 2 puffs 2 (two) times a day., Disp: , Rfl: ??? omeprazole (PRILOSEC) 40 MG capsule, Take 1 (one) capsule (40 mg total) by mouth daily., Disp: 30 capsule, Rfl: 11 ??? oxygen, Inhale 2.5 L/min nightly., Disp: , Rfl: ??? pancrelipase, Gur-Revu-Hegp, (CREON) 12,000-38,000 -60,000 unit CpDR capsule, Take 1 (one) capsule (12,000 units of lipase total) by mouth 3 (three) times a day with meals., Disp: 90 capsule, Rfl:11 ??? diphenhydrAMINE (BENADRYL) 25 mg capsule, Take 25 mg by mouth as needed for itching., Disp: , Rfl: ??? fluorouracil (5-FU) chemo home infusion, Infuse 2,205 (two thousand two hundred five) mg into avenous catheter over 168 hr via ambulatory infusion pump.., Disp: 1 each, Rfl: 0 ALLERGIES Allergies: Ciprofloxacin; Gemzar [gemcitabine]; Penicillin; Tetracycline; and Zofran (as hydrochloride) [ondansetron hcl] SOCIAL HISTORY Social History Social History ??? Marital status: [...] History Narrative ??? No narrative on file FAMILY HISTORY Cancer-related family history includes Cancer in his father, mother, and sister. PHYSICAL EXAM PACU Vitals 08/16/17 1139 BP: (!) 153/73 Pulse: 68 Temp: 98.6 ??F (37 ??C) SpO2: 98% General: No acute distress and appears their stated age. HEENT: NC/AT. PERRL. EOMI. No cervical or S/C adenopathy. Cardiovascular Exam: Regular rate and rhythm. No M/R/G. Respiratory Exam: Clear to auscultation bilaterally. No accessory muscle use. Abdominal Exam: Soft, NT to palpation. No masses. Surgical scars present. Neuro Exam: A+O x 3. No cranial nerve deficits. No focal abnormalities. MSK: No midline axial tenderness. No focal weakness. Extremities: No peripheral edema. Lymphatics: No adenopathy appreciated. IMPRESSION Hi Canales is a 77 y.o. male with carcinoma of the head of the pancreas status post resection and adjuvant chemoradiation therapy. He has no evidence of recurrence. PLAN Routine follow-up in [address] imaging as ordered by medical oncology. He is encouraged to call with any worsening of symptoms. He understands that not taking further adjuvant chemotherapy may increase his risk of recurrence and decrease his overall survival and is willing to take thatrisk for improved quality of life in the short-term. Tsering Beckwith RN - 08/16/2017 11:42 AM EDTReview of Systems Constitutional: Negative. HENT: Positive for tinnitus (since ). Eyes: Positive for eye problems (blurred vision worse with chemo/radiation). Respiratory: Positive for cough (sinus drainage) and shortness of breath (with activity). Cardiovascular: Negative. Gastrointestinal: Positive for diarrhea. Constipation: mostly in the morning a few times. Taste improving Endocrine: Negative. Genitourinary: Negative. Musculoskeletal: Negative. Skin: Raised areas on arms Neurological: Positive for light-headedness (at times with quick position changes). Hematological: Bruises/bleeds easily. Psychiatric/Behavioral: Negative. Pt has a living willin this encounter Plan of Treatment Upcoming Encounters Date Type Specialty Care Team Description 09/20/2017 Nurse Only Infusion Therapy 11/13/2017 Nurse Only Infusion Therapy 11/13/2017 Appointment Radiology Sherif Valles MD [address] [address] [phone] 11/15/2017 Office Visit Oncology Sherif Valles MD [address] [address] [phone] Health Maintenance Due Date Last Done Comments TETANUS EVERY 10 YR 1940 ZOSTER VACCINE 2001 PNEUMOCOCCAL VACCINE AGE 65+ (1 of 2006 2 - PCV13) SEQUENTIAL INFLUENZA VACCINE 10/27/2017 (Season Ended) Low-dose CT Lung Cancer Screen 08/13/2018 08/13/2017, 04/24/2017, 02/22/2017, Additional history exists as of this encounter Implants Implanted Type Area Substance Abuse Prevention Coordinator Device Expiration Model / Identifier Date Serial / Lot Port Implanted Mri Isp W/8fr Cath Powerport - [id number] Catheter - Right: BARD PERIP 12/26/2017 [id number] / Implanted: Qty: 1 on 12/04/2016 by Kota Vences MD Implant Subclavian / [id number] Cath 90cm Peritoneal Open End W/Wall Slits - [id number] Catheter - N/A: Abdomen MEDTRO SHAGGY [id number] / Implanted: Qty: 1 on 01/24/2017 by Inder Guillen MD Implant / Sealant 10ml Floseal Matrix Hemostatic W/Ndl-Free Adapter - [id number] N/A: Abdomen TOBAR BIO 03/20/2018 [id number] / Implanted: Qty: 2 on 01/24/2017 by Inder Guillen MD / [id number] as of this encounter Visit Diagnoses Diagnosis Malignant neoplasm of head of pancreas (HCC) - Primary Malignant neoplasm of head of pancreas
--- OUTSIDE RECORDS SUMMARY | 2018-05-19 09:09 | XMS RPT_ITS | Summary of Care ---
:1940 Author Organization [facility] Address [address] [id number] Care Team Providers Name Role Phone Jus Allison MD Primary Care Provider Sherif Valles MD Unavailable Varsha Pineda CNP Unavailable Fran Burris MD Unavailable Inder Guillen MD Unavailable Estefany Gaxiola RN Unavailable Unavailable Reason for Visit Reason Comments port access for CT and lab draw Encounter Details Date Type Department Care Team Description 08/13/2017 Nurse Only [facility] Juancarlos Gabriel MD Encounter for antineoplastic chemotherapy (Primary Dx); Center Chemo 801 [facility] Malignant neoplasm of head of pancreas (HCC); Infusion Therapy Anand 180 Chemotherapy follow-up examination 801 [place] [address] [place] [address] [phone] Allergies Active Allergy Reactions Severity Noted Date [...] (one) 90 capsule 11 03/02/2017 03/02/2018 Active Dag-Wdnb-Kgzc, (CREON) capsule (12,000 12,000-38,000 -60,000 units of [...] Vital Sign Reading Time Taken Blood Pressure 121/69 08/13/2017 9:16 AM EDT Pulse 75 08/13/2017 9:16 AM EDT Temperature 36.7 ??C (98 ??F) 08/13/2017 9:16 AM EDT Respiratory Rate 16 08/13/2017 9:16 AM EDT Oxygen Saturation - - Inhaled Oxygen Concentration - - Weight - - Height - - Body Mass Index - - in this encounter Plan of Treatment Upcoming Encounters Date Type Specialty Care Team Description 08/16/2017 Radiation Oncology Radiation Oncology Cole Rivera MD [address] [address] [phone] 08/16/2017 Office Visit Oncology Juancarlos Gabriel MD [address] [address] Sherif Valles MD [address] [address] [phone] Pending Results Name Priority Associated Diagnoses Date/Time CA 19-9 Routine Malignant neoplasm of head of pancreas (HCC) 08/13/2017 9:14 AM EDT Chemotherapy follow-up examination Health Maintenance Due Date Last Done Comments TETANUS EVERY 10 YR 1940 ZOSTER VACCINE 2001 PNEUMOCOCCAL VACCINE AGE 65+ (1 of 2006 2 - PCV13) SEQUENTIAL INFLUENZA VACCINE 10/27/2017 (Season Ended) Low-dose CT Lung Cancer Screen 04/24/2018 04/24/2017, 02/22/2017, 01/03/2017, Additional history exists as of this encounter Implants Implanted Type Area Pantry Chef Device Expiration Model / Identifier Date Serial / Lot Port Implanted Mri Isp W/8fr Cath Powerport - [id number] Catheter - Right: BARD PERIP 12/26/2017 [id number] / Implanted: Qty: 1 on 12/04/2016 by Kota Vences MD Implant Subclavian / [id number] Cath 90cm Peritoneal Open End W/Wall Slits - [id number] Catheter - N/A: Abdomen MEDTRO [id number] / Implanted: Qty: 1 on 01/24/2017 by Inder Guillen MD Implant / Sealant 10ml Floseal Matrix Hemostatic W/Ndl-Free Adapter - [id number] N/A: Abdomen TOBAR BIO 03/20/2018 [id number] / Implanted: Qty: 2 on 01/24/2017 by Inder Guillen MD / [id number] as of this encounter Results Comprehensive Metabolic Panel (08/13/2017 9:14 AM) Component Value Ref Range Sodium 133 (L) 135 - 145 mmol/L Potassium 4.1 3.5 - 5.1 mmol/L Chloride 97 (L) 98 - 108 mmol/L Bicarbonate 25 21 - 32 mmol/L Anion Gap 15 10 - 20 mmol/L Glucose 119 (H) 65 - 99 mg/dL BUN 8 8 - 25 mg/dL Creatinine 0.65 (L) 0.80 - 1.30 mg/dL eGFR 95 >=60 mL/min/1.73 m2 BUN/Creatinine Ratio 12.3 10.0 - 20.0 Total Protein 6.1 6.0 - 8.0 g/dL Albumin 3.4 3.2 - 5.2 g/dL Calcium 8.7 8.4 - 10.2 mg/dL Alkaline Phosphatase 93 40 - 150 U/L AST 20 0 - 45 U/L ALT 12 0 - 40 U/L Total Bilirubin 0.4 0.0 - 1.3 mg/dL Specimen Performing Laboratory Blood [facility] [address] [place] [address] Narrative The eGFR should be used for monitoring renal function only and not for medication dosing. CBC Auto Differential (08/13/2017 9:14 AM) Component Value Ref Range WBC 4.01 (L) 4.50 - 11.00 K/mcL RBC 3.82 (L) 4.50 - 5.90 M/mcL Hemoglobin 12.5 (L) 13.5 - 17.5 g/dL Hematocrit 36.6 (L) 41.0 - 53.0 % MCV 95.8 80.0 - 100.0 fL MCH 32.7 26.0 - 34.0 pg MCHC 34.2 31.0 - 37.0 g/dL Platelets 142 (L) 150 - 400 K/mcL RDW - CV 15.5 (H) 11.6 - 14.8 % MPV 9.0 9.0 - 15.5 fL Neutrophils 61.1 % Lymphocytes 20.0 % Monocytes 12.7 % Eosinophils 4.7 % Basophils 1.5 % Neutrophils Abs 2.45 1.70 - 7.00 K/mcL Lymphocytes Abs 0.80 (L) 0.90 - 4.00 K/mcL Monocytes Abs 0.51 0.30 - 0.90 K/mcL Eosinophils Abs 0.19 0.00 - 0.50 K/mcL Basophils Abs 0.06 0.00 - 0.30 K/mcL Nucleated RBC 0.0 % Nucleated RBC Abs 0.00 0.00 - 0.00 K/mcL Specimen Performing Laboratory Blood [facility] [address] [place] [address] CBC and Differential (08/13/2017 9:14 AM) Specimen Performing Laboratory Blood Narrative The following orders were created for panel order CBC and Differential. Procedure? Abnormality? Status? ---------? ------? CBC Auto Differential[[id number]]?Abnormal?Final result? Please view results for these tests [...] Rate Site heparin, porcine (PF) injection Given 08/13/2017 11:35 EDT 500 Units 500 Units 500 Units, Intravenous, As needed, For port needle removal and monthly., Starting 08/13/17 at 0913, For ports, flush with 10 mL 0.9% NaCl IV and 5 mL Heparin (100 units/mL) prior to needle removal and every month when not in use. sodium chloride (PF) (NS) flush 10 mL Given 08/13/2017 11:34 EDT 10 mL 10 mL, Intravenous, As needed, line care, Starting 08/13/17 at 0913, For Central Lines. Flush before and after medication administration. sodium chloride (PF) (NS) flush 20 mL Given 08/13/2017 09:29 EDT 20 mL 20 mL, Intravenous, As needed, line care, Starting 08/13/17 at 0913, For Central Lines. Flush after TPN, blood products, and blood draws. in this encounter
--- OUTSIDE RECORDS SUMMARY | 2018-05-19 09:09 | XMS RPT_ITS | Summary of Care ---
:[address] [facility] Address [address] [place] [address] Phone Care Team Providers Name Role Phone Jus Allison MD Primary Care Provider Sherif Valles MD Unavailable Varsha Pineda [facility] Unavailable Fran Burris MD Unavailable Reason for Visit Reason Comments Chemotherapy gemzar/nab pacitaxel C1D8 Encounter Details Date Type Department Care Team Description 11/30/2016 Infusion/Inje [facility] Sherif Valles MD Encounter for [facility] Chemo 801 [facility] antineoplastic Infusion Therapy Anand 180 chemotherapy (Primary [address] [place] [address] Dx);[place] [address] of head of pancreas [phone] (HCC) Allergies Active Allergy Reactions Severity Noted [...] 1 (one) 90 capsule 0 08/07/2016 Active Sbb-Uhwm-Hmil, (CREON) capsule (12,000 8 12,000-38,000 -60,000 units [...] Reading Time Taken Blood Pressure 140/76 11/30/2016 9:42 AM EDT Pulse 92 11/30/2016 9:42 AM EDT Temperature 36.6 ??C (97.9 ??F) 11/30/2016 9:42 AM EDT Respiratory Rate - - Oxygen Saturation - - Inhaled Oxygen Concentration - - Weight 74.3 kg (163 lb 14.4 oz) 11/30/2016 9:42 AM EDT Height 172.7 cm (5' 8) 11/30/2016 9:42 AM EDT Body Mass Index 24.92 11/30/2016 9:42 AM EDT in this encounter Progress Notes Leyda Saravia RN - 11/30/2016 9:42 AM [id number] Patient arrived ambulatory from oncology appointment no changes in medication, allergies or assessment since visit will proceed with treatment 1210 patient requested to send note to oncology r/t port placement Note sent to And staff 1225 Maida spoke with patient in regards to port placement 1315 patient tolerated treatment with minimum discomfortin this encounter Plan of Treatment Upcoming Encounters Date Type Specialty Care Team Description 12/04/2016 Surgery Kota Vences MD PORT PLACEMENT [address] [place] [address] [phone] 12/04/2016 Hospital Encounter Kota Vences MD [address] [place] [address] [phone] 12/07/2016 Office Visit Oncology Sherif Valles MD 801 [facility] [address] [place] [address] [phone] 12/07/2016 Infusion/Injection Infusion Therapy Health Maintenance Due [...] Date Dose Rate Site dexamethasone (DECADRON) injection 12 Given 11/30/2016 09:55 EDT 12 mg mg 12 mg, Intravenous, Once, Gemini 11/30/16 at 1045, For 1 dose, IV Push 30 minutes prior to chemotherapy treatment. Give over 15 minutes gemcitabine (GEMZAR) 1,000 mg/m2 = New Bag 11/30/2016 11:52 EDT 1,800 mg 297 mL/hr 1,800 mg in sodium chloride 0.9 % (NS) 297.34 mL chemo infusion 1,800 mg (rounded from 1,880 mg = 1,000 mg/m2 ? 1.88 m2 Treatment plan recorded BSA), Intravenous, Administer over 30 Minutes, Once, Gemini 11/30/16 at 1145, For 1 dose, Follow Chemotherapy Precautions. Increased toxicity when given with infusions longer than 60 minutes Chemotherapy competent RN only to administer. Hazardous medication. Use safe handling precautions. Rate/Dose Verify 11/30/2016 11:53 EDT 297 mL/hr nab-PACLitaxel (ABRAXANE) chemo New Bag 11/30/2016 10:32 EDT 235 mg 47 mL/hr infusion 125 mg/m2 = 235 mg 47 mL 235 mg (125 mg/m2 ? 1.88 m2 Treatment plan recorded BSA), Intravenous, at 94 mL/hr, Once, Gemini 11/30/16 at 1145, For 1 dose, Infuse over 60 minutes. Chemotherapy competent RN only to administer. Hazardous medication. Use safe handling precautions. Locate in [employer] drug library under nab-Pacli (Abraxane). Rate/Dose Verify 11/30/2016 10:33 EDT 47 mL/hr sodium chloride (PF) (NS) 0.9 % flush 5 mL Given 11/30/2016 09:50 EDT 5 mL 5 mL, Intravenous, As needed, line care, Starting Gemini 11/30/16 at 0944, Flush before and after medication administration. sodium chloride 0.9% (NS) New Bag 11/30/2016 09:52 EDT 25 mL/hr 25 mL/hr 25 mL/hr, Intravenous, Continuous, Starting Gemini 11/30/16 at 1045 Rate/Dose Verify 11/30/2016 09:53 EDT 25 mL/hr 25 mL/hr in this encounter Insurance Payer Benefit Plan / Group Subscriber ID Type Phone Address [employer]MANA MANAGED MEDICARE HUMANA MCR GOLD PLUS HMO [id number] [employer]/JESSICA 80% JESSICA [id number] [id number] [place] [address] as of this encounter
--- OUTSIDE RECORDS SUMMARY | 2018-05-19 09:09 | XMS RPT_ITS | Summary of Care ---
:1940 Author Organization [facility] Address [address] [id number] Phone Care Team Providers Name Role Phone Jus Allison MD Primary Care Provider Sherif Valles MD Unavailable Varsha Pineda [employer] Unavailable Fran Burris MD Unavailable Reason for Visit Auth/Cert (Routine) Status Reason Specialty Diagnoses / Procedures Referred By Contact Referred To Contact Encounter Details Date Type Department Care Team Description 12/04/2016 Hospital Encounter [facility] Malignant neoplasm [facility] Mark Brunner MD of head of pancreas [address] [place] [address] ([facility]) (Primary Dx) [place] [address] [phone] Allergies Active Allergy Reactions Severity Noted Date Comments Ciprofloxacin 12/01/2014 Penicillin 12/01/2014 Tetracycline 12/01/2014 Ondansetron Hcl Hives 11/30/2016 Itching, hives, shortness of breath, sweating as of this encounter Medications Prescription Sig. Disp. Refills Start End Date Status Date aspirin 81 MG EC Take 1 tablet Active tabletIndications: pt by mouth states he has not been daily taking for a couple of Reasons: pt weeks states he has not been taking for a couple of weeks. mometasone-formoterol Inhale 2 Active (DULERA) 200-5 puffs 2 (two) 2 mcg/actuation HFAA times a day. finasteride (PROSCAR) 5 Take 1 tablet 30 tablet 11 Active mg tablet (5 mg total) 6 by mouth daily. OCEAN NASAL 0.65 % Instill 2 Active nasal spray sprays into 6 each nostril as needed . fluocinonide (LIDEX) Apply 15 g 0 01/17/20 Active 0.05 % topically 2 6 17 creamIndications: (two) times a Lichen simplex day .5 gm BID chronicus to L leg rash for 15 days. oxygen Inhale 2.5 Active L/min nightly. diphenoxylate-atropine Take 1 tablet Active (LOMOTIL) 2.5-0.025 mg by mouth 4 per tablet (four) times a day as needed for diarrhea. pancrelipase, Take 1 (one) 90 capsule 0 08/08/19 Active Qpq-Qlhx-Bsyf, (CREON) capsule 7 18 12,000-38,000 -60,000 (12,000 units unit CpDR capsule of lipase total) by mouth 3 (three) times a day with meals. omeprazole (PRILOSEC) Take 1 (one) 30 capsule 11 08/19/19 Active 40 MG capsule (40 7 18 capsuleIndications: mg total) by Generalized abdominal mouth daily. pain prochlorperazine Take 1 (one) 30 tablet 3 Active (COMPAZINE) 10 MG tablet (10 mg 7 tabletIndications: total) by Malignant neoplasm of mouth every 6 head of pancreas (HCC) (six) hours as needed for nausea. dexamethasone Take 2 (two) 12 tablet 6 12/19/19 Active (DECADRON) 4 MG tablet tablets (8 mg 7 17 total) by mouth 2 (two) times a day with meals START TAKING DAY AFTER CHEMO FOR 2 DAYS. HYDROcodone-acetaminoph Take 1 (one) 20 tablet 0 Active en (NORCO) 5-325 mg per tablet to 2 7 tablet (two) tablets by mouth every 6 (six) hours as needed for pain Take with food.. methylPREDNISolone follow 21 tablet 0 12/02/19 Discontinued (MEDROL DOSEPACK) 4 mg package 7 17 tabletIndications: directions. Malignant neoplasm of head of pancreas (HCC), [...] Vital Sign Reading Time Taken Blood Pressure 137/76 12/04/2016 9:00 AM EDT Pulse 76 12/04/2016 9:15 AM EDT Temperature 36.2 ??C (97.1 ??F) 12/04/2016 6:20 AM EDT Respiratory Rate 20 12/04/2016 9:15 AM EDT Oxygen Saturation 94% 12/04/2016 9:15 AM EDT Inhaled Oxygen Concentration - - Weight 73.9 kg (163 lb) 12/01/2016 12:37 PM EDT Height 172.7 cm (5' 8) 12/01/2016 12:37 PM EDT Body Mass Index 24.78 12/01/2016 12:37 PM EDT in this encounter Discharge Instructions Kiesha Gentile CNP - 12/04/2016Implanted Port: What to Expect at Home Your Recovery You have had a procedure to implant a port. The port looks like a small bump under your skin. A thin, flexible tube called a catheter runs under the skin from the port into a large vein. You may have the port for weeks, months, or longer. You will be able to get medicine, blood, nutrients, or other fluids with more comfort. The port can be used right away. You will probably have some discomfort and bruising at the port site. This will go away in a few days. You may have strips of tape on the cut (incision) the doctor made, or the cut may have been closed with glue. It may be covered with a small bandage. This care sheet gives you a general idea about how long it will take for you to recover. But each person recovers at a different pace. Follow the steps below to feel better as quickly as possible. How can you care for yourself at home? Activity ?? Avoid arm and upper body movements that may pull on the catheter. These movements include heavy weight lifting and vigorous use of your arms. ?? You will probably need to take 1 day off from work and will be able to return to normal activities shortly after. This depends on the type of work you do, why you have the catheter, and how you feel. ?? Ask your doctor when you can drive again. Pay special attention when pulling your seat belt across your chest so it doesn't pull out the catheter. It's okay if the seat belt lays over the catheter. Medicines ?? Your doctor will tell you [...] your doctor wants you to do. ?? Take pain medicines exactly as directed. ?? If the doctor gave you a prescription medicine for pain, take it as prescribed. ?? If you are not taking a prescription pain medicine, ask your doctor if you can take an mrfd-pts-upgagvl medicine. ?? If you think your pain medicine is making you sick to your stomach: ?? Take your medicine after meals (unless your doctor has told you not to). ?? Ask your doctor for a different pain medicine. Incision care ?? If you have a bandage, your doctor will tell you when you can remove it. After you remove the bandage, you may shower. Wash the area with soap and water and pat it dry. Don't use hydrogen peroxide or alcohol, which can slow healing. You may cover the area with a gauze bandage if it weeps or rubs against clothing. Change the bandage every day. ?? If you have strips of tape on the cut (incision) the doctor made, leave the tape on for a week oruntil it falls off. Other instructions ?? Always carry the medical alert card that your doctor gives you. It contains information about your port. It will tell health care workers you have a port in case you need emergency care. ?? Wear loose clothing over the port for the first 10 to 14 days. When getting dressed, be careful not to rub the port. Follow-up care is a hein part of [...] or seek immediate medical care if: ?? You have signs of infection, such as: ?? Increased pain, swelling, warmth, or redness near the port. ?? Red streaks leading from the port. ?? Pus draining from the port. ?? A fever. ?? You have pain or swelling in your neck or arm. ?? You have trouble breathing or chest pain. Watch closely for changes in your health, and be sure to contact your doctor if: ?? You have any problems with your port. Where can you learn more? Log into your personal health record on https://[employer] and enter M256 in the Education box to learn more about Implanted Port: What to Expect at Home. Current as of: July 23, 2015 Content Version: 11.2 ?? 2332-8029 [employer]. Care instructions adapted under license by your healthcare professional. If you have questions about a medical condition or this instruction, always ask your healthcare professional. [employer] disclaims any warranty or liability for your use of this information. in this encounter Progress Notes Dion Downs RN - 12/04/2016 9:30 AM EDTDC instructions given to patient. All questions answered. No distress noted.in this encounter Plan of Treatment Upcoming Encounters Date Type Specialty Care Team Description 12/07/2016 Nurse Only Infusion Therapy Sherif Valles MD [address] [address] [phone] 12/07/2016 Office Visit Oncology Sherif Valles MD [address] [address] [phone] 12/07/2016 Infusion/Injection Infusion Therapy Sherif Valles MD [address] [address] [phone] Health Maintenance Due Date Last Done Comments TETANUS EVERY 10 YR 1940 ZOSTER VACCINE 2001 PNEUMOCOCCAL VACCINE AGE 65+ (1 of 2 - 2006 PCV13) SEQUENTIAL INFLUENZA VACCINE (#1) 2016 Low-dose CT Lung Cancer Screen 10/16/2017 10/16/2016 COLONOSCOPY 07/27/2021 07/27/2016, 01/12/2010 as of this encounter Implants Implanted Type Area Radio Survey Worker Device Expiration Model / Identifier Date Serial / Lot Port Implanted Mri Isp W/8fr Cath Powerport - [id number] Catheter - Right: BARD PERIP 12/26/2017 [id number] / Implanted: Qty: 1 on 12/04/2016 by Kota Vences MD Implant Subclavian / [id number] as of this encounter Results XR Chest 1 View (12/04/2016 8:45 AM) Specimen Performing Laboratory [facility] Impressions 1.?Right chest MediPort with tip in the SVC. 2.?No evidence of pneumothorax. 3.?Emphysema. SAY/cdr Workstation ID:? [id number] Narrative EXAMINATION: CHEST RADIOGRAPH HISTORY: s/p port [...] AC joints. Procedure Note Interface, Rad In [place] - 12/04/2016 9:27 AM EDT EXAMINATION: CHEST [...] 2. No evidence of pneumothorax. 3. Emphysema. [facility] Workstation ID: [id number] XR OR Chest 1 View (12/04/2016 8:10 AM) Specimen Performing Laboratory [facility] Narrative EXAMINATION: XR OR CHEST 1 VIEW HISTORY: ORDERING SYSTEM PROVIDED HISTORY:?CANCER, TECHNOLOGIST PROVIDED HISTORY: Reason for exam: Port Placement Illness/Other Encounter Type: Initial Additional signs and symptoms: None Fluoro dose in mGy: .33 ORDERING SYSTEM PROVIDED DIAGNOSIS CODES: COMPARISON: CT chest from 10/16/2016. TECHNIQUE: Fluoro Dose Ka,r mGy:?Fluoro dose in mGy: 0.33 FLUOROSCOPY TIME: 0.05 minutes. FINDINGS: Single fluoroscopic image of the patient's right chest is performed demonstrating placement of the right chest port with catheter tip in the SVC.?Please see procedure report for further details. SYJ/mjr Workstation ID:? [id number] Procedure Note Interface, Rad In [facility] - 12/04/2016 11:32 AM EDT EXAMINATION: XR OR CHEST 1 VIEW HISTORY: ORDERING SYSTEM PROVIDED HISTORY: CANCER, TECHNOLOGIST PROVIDED HISTORY: Reason for exam: Port Placement Illness/Other Encounter Type: Initial Additional signs and symptoms: None Fluoro dose in mGy: .33 ORDERING SYSTEM PROVIDED DIAGNOSIS CODES: COMPARISON: CT chest from 10/16/2016. TECHNIQUE: Fluoro Dose Ka,r mGy: Fluoro dose in mGy: 0.33 FLUOROSCOPY TIME: 0.05 minutes. FINDINGS: Single fluoroscopic image of the patient's right chest is performed demonstrating placement of the right chest port with catheter tip in the SVC. Please see procedure report for further details. [employer] Workstation ID: [id number] POC Glucose (12/04/2016 6:39 AM) Component Value Ref Range Glucose 130 mg/dL Specimen Performing Laboratory Blood POC Glucose (12/04/2016 6:35 AM) Component Value Ref Range Glucose 130 (H) 65 - 99 mg/dL Specimen Performing Laboratory Blood [facility] [address] [place] [address] in this encounter Visit Diagnoses Diagnosis Malignant neoplasm of head of pancreas (HCC) - Primary Malignant neoplasm of head of pancreas in this encounter Administered Medications Inactive Administered Medications - up to 3 most recent administrations Medication Order MAR Action Action Date Dose Rate Site lactated Ringers infusion New Bag 12/04/2016 06:38 EDT 50 mL/hr 50 mL/hr 50 mL/hr, Intravenous, Continuous, Starting 12/04/16 at 0700, Pre-Procedure New Bag 12/04/2016 07:01 EDT in this encounter Insurance Payer Benefit Plan / Group Subscriber ID Type Phone Address [employer]NA MANAGED MEDICARE HUMANA MCR GOLD PLUS [facility] [id number] [facility]JESSICA 80% JESSICA [id number] [phone] [id number] as of this encounter
--- OUTSIDE RECORDS SUMMARY | 2018-05-19 09:09 | XMS RPT_ITS | Summary of Care ---
:1940 Author Organization [facility] Address [address] [place] [address] Phone Care Team Providers Name Role Phone Unavailable Primary Care Provider Unavailable Reason for Referral Evaluate and Treat (Urgent) Status Reason Specialty Diagnoses / Referred By Referred To Procedures Contact Contact Closed Gastroenterology Diagnoses Pancreatic mass Inder Guillen MD [address] [address] Evaluate and Treat (Routine) Status Reason Specialty Diagnoses / Referred By Referred To Procedures Contact Contact Closed Specialty Surgical Diagnoses Pancreatic mass Mnidy Allison David, Services Oncology Jus Botello MD Required/Patient MD Daniel Kemp 's [facility] [facility] [address] [place] [phone] Phone: Fax: Reason for Visit Reason Comments Consult Evaluate and Treat (Routine) Status Reason Specialty Diagnoses / Referred By Referred To Procedures Contact Contact Closed Specialty Surgical Diagnoses Pancreatic mass Mindy Allison David, Services Oncology Jus Botello MD Required/Patient MD Daniel Kemp 'brad [facility] [facility] [address] [place] [address] Phone: Fax: Encounter Details Date Type Department Care Team Description 10/17/2016 Office Visit [facility] Cancer & Inder Guillen MD Pancreatic mass [facility] [address] (Primary Dx) [address] [facility] [address] [address] [place] [phone] Allergies Active Allergy Reactions Severity Noted Date [...] (one) 90 capsule 0 08/07/2016 08/07/2017 Active Ylq-Hxlg-Dwrh, capsule (12,000 (CREON) units of lipase 12,000-38,000 [...] Vital Sign Reading Time Taken Blood Pressure 150/74 10/17/2016 1:23 PM EDT Pulse 76 10/17/2016 1:23 PM EDT Temperature - - Respiratory Rate - - Oxygen Saturation - - Inhaled Oxygen Concentration - - Weight 76.2 kg (168 lb) 10/17/2016 1:23 PM EDT Height 172.7 cm (5' 8) 10/17/2016 1:23 PM EDT Body Mass Index 25.54 10/17/2016 1:23 PM EDT in this encounter Progress Notes Inder Guillen MD - 10/17/2016 1:33 PM EDTFormatting of this note may be different from the original. Subjective: Patient ID: Elbert Canales is a 76 y.o. male. HPI 76-year-old male with a new diagnosis of pancreatic mass. He was having indigestion right upper quadrant pain and he underwent an ultrasound that indicated a change in the head of his pancreas. CAT scan was followed which revealed a pancreatic head mass. MRI confirms the above. CAT scan of chest wi th IV contrast is negative for metastatic disease. CA-19-9 is elevated over 300. Patient smokes 1 pack a day for 40 years. He does not have any weight loss or any change in bowel habits. He also underwent a colonoscopy that was negative for any disease. He presents today for discussion of surgical options for pancreatic cancer. This is in the head of his pancreas. The following portions of the patient's history were reviewed and updated as appropriate: allergies,current medications, past family history, past medical history, past social history, past surgical history and problem list. Past Medical History: Diagnosis Date ??? Arthritis ??? BPH (benign prostatic hyperplasia) ??? Cancer (HCC) skin cancer ??? Cataract ??? Chronic diarrhea current problem (07/21/16), stool specimen [facility] ([facility] per pt ??? Colon polyps 2009 benign ??? Complication of anesthesia difficulty waking up ??? COPD (chronic obstructive pulmonary disease) (HCC) ??? History of stress test ??? Pancreatic mass Past Surgical History: Procedure Laterality Date ??? APPENDECTOMY ??? COLONOSCOPY 2009 benign polyps found ??? COLONOSCOPY N/A 07/27/2016 Procedure: COLONOSCOPY; Surgeon: Kota Vences MD; Location: [facility]; Service: ??? PROSTATE BIOPSY ??? SINUS SURGERY 2003 Current Outpatient Prescriptions: ??? aspirin 81 MG EC tablet, Take 1 tablet by mouth daily Reasons: pt states he has not been taking for a couple of weeks., Disp: , Rfl: ??? mometasone-formoterol (DULERA) 200-5 mcg/actuation HFAA, Inhale 2 puffs 2 (two) times a day., Disp: , Rfl: ??? omeprazole (PRILOSEC) 40 MG capsule, Take 1 (one) capsule (40 mg total) by mouth daily., Disp: 30 capsule, Rfl: 11 ??? oxygen, Inhale 2.5 L/min nightly., Disp: , Rfl: ??? alfuzosin (UROXATRAL) 10 mg 24 hr tablet, Take 1 tablet (10 mg total) by mouth at bedtime., Disp: 30 tablet, Rfl: 11 ??? diphenoxylate-atropine (LOMOTIL) 2.5-0.025 mg per tablet, Take 1 tablet by mouth 4 (four) timesa day as needed for diarrhea., Disp: , Rfl: ??? finasteride (PROSCAR) 5 mg tablet, Take 1 tablet (5 mg total) by mouth daily., Disp: 30 tablet,Rfl: 11 ??? fluocinonide (LIDEX) 0.05 % cream, Apply topically 2 (two) times a day .5 gm BID to L leg rash for 15 days., Disp: 15 g, Rfl: 0 ??? OCEAN NASAL 0.65 % nasal spray, Instill 2 sprays into each nostril as needed ., Disp: , Rfl: ??? pancrelipase, Ymw-Dvht-Zswk, (CREON) 12,000-38,000 -60,000 unit CpDR capsule, Take 1 (one) capsule (12,000 units of lipase total) by mouth 3 (three) times a day with meals., Disp: 90 capsule, Rfl:0 Review of Systems Constitutional: Negative for chills, [...] Negative. Neurological: Negative. Hematological: Negative. Psychiatric/Behavioral: Negative. Objective: Physical Exam Constitutional: He is oriented to [...] behavior is normal. Judgment normal. Vitals reviewed. MRI abdomen: Pancreatitis. ?? COMPARISON: CT of the abdomen and pelvis 09/11/2016. ?? TECHNIQUE: MRI of the abdomen was performed using axial and coronal SSFP images, axial in- and kco-uc-izxwd gradient-echo T1-weighted image, axial fast spin-echo T2- weighted images, axial diffusion-weighted images with ADC maps as well as axial pre- and postcontrast T1-weighted images fat saturation and postprocessed subtraction images. The patient received 7 mL MultiHance IV. ?? FINDINGS: Corresponding to a previously described hypodensity in the pancreas, there is a masslike signal abnormality with hypoenhancement relative to the pancreatic parenchyma. This is apparently causing obstruction of the main pancreatic duct which is mildly dilated in the pancreatic body and tail. The lesion is in the medial aspect of the pancreatic head and in the uncinate process and measures approximately 2.1 x 1.7 cm on series 1003, image 59. The lesion abuts the right margin of the proximal SMV andportal confluence without definite evidence of invasion. The lesion is in the medial aspect of the pancreatic head and does not appear to cause biliary ductal obstruction. There is a preserved fat plane around the superior mesenteric artery. There are a few small lymph nodes above the level of the pancreatic head near the common hepatic artery. One of these is suspected to measure 7 mm in short axis on series 1002, image 42. There is also an irregular margin of the pancreatic mass with the adjacent peripancreatic fat and there are a few tiny lymph nodes which are nonspecific in the mesenteric root. There are a few tiny cystic foci in the pancreas, one in the pancreatic tail, for example, on series 8, image 16 and another in the pancreatic neck on image 18 which may be due to dilated ductal side branches. There is diffusely abnormal T1 hypointensity of the pancreatic body and tail which may be due to atrophic change or mild pancreatitis. No hypervascular or hypovascular lesions are seen in the liver. There is a tiny cyst in the anterior liver dome which is nonenhancing. Spleen is normal in size. Adrenal glands and kidneys are unremarkable except for a tiny left lower pole renal cystwhich appears nonenhancing and measures 6 mm on series 1003, image 78. Atherosclerotic irregularityof the abdominal aorta is noted and there is a focus of mild aneurysmal dilatation measuring up to approximately 2.1 cm. ?? IMPRESSION: ?? 1. Irregularly shaped mass in the medial [...] suspicious renal lesions. 5. Atherosclerotic vascular disease with mild focal dilatation of the abdominal aorta. Assessment/Plan: 76-year-old male with known pancreatic mass, most likely pancreatic adenocarcinoma. CA-19-9 is elevated as expected. Metastatic workup is negative for any evidence of disease. I recommended GI consultation with endoscopic ultrasound for biopsy. His bile duct is not dilated and his enzymes are normal so no ERCP with stent is needed at this time. I recommended neoadjuvant chemotherapy in the form of Gemzar and Abraxane. I believe the patient will tolerate this quite well. After 3 cycles we willrestaging with CAT scans and if amenable we will proceed with surgical intervention which includes aWhipple procedure. Postoperatively once he recovers he will need further chemotherapy. I discussedall the above with the patient as this is the best way of attempting to cure pancreatic cancer. I do not think radiation is needed or warranted at this time. I discussed the national conference of cancer network guidelines with the patient and the indications for neoadjuvant chemotherapy. He appears to be borderline resectable with mild involvement of the lateral wall of the portal vein. Endoscopic ultrasound will be better at delineating anatomically vessel involvement. All questions answered to his satisfaction. Diagnoses and all orders for this visit: Pancreatic mass - Ambulatory referral to Surgical Oncology - Ambulatory referral to Gastroenterology; Future in this encounter Plan of Treatment Upcoming Encounters Date Type Specialty Care Team Description 10/25/2016 Office Visit Oncology Sherif Valles MD [address] [facility] [address] [place] [address] [phone] Scheduled Referrals Name Priority Associated Diagnoses Order Schedule Ambulatory referral to Routine Pancreatic mass 1 Occurrences starting Gastroenterology 10/17/2016 until 10/17/2017 Health Maintenance Due Date Last Done Comments TETANUS EVERY 10 YR 1940 ZOSTER VACCINE 2001 PNEUMOCOCCAL VACCINE AGE 65+ (1 of 2 - 2006 PCV13) SEQUENTIAL INFLUENZA VACCINE (#1) 2016 COLONOSCOPY 07/27/2021 07/27/2016, 01/12/2010 as of this encounter Visit Diagnoses Diagnosis Pancreatic mass - Primary Unspecified disease of pancreas in this encounter Insurance Payer Benefit Plan / Group Subscriber ID Type Phone Address [employer]ED MEDICARE [employer] [id number] Home: [address] [place], [place] [phone] [place] [address] as of this encounter
--- OUTSIDE RECORDS SUMMARY | 2018-05-19 09:10 | XMS RPT_ITS | Summary of Care ---
:1940 Author Organization [facility] Address [address] [place] [address] Care Team Providers Name Role Phone Jus Allison MD Primary Care Provider Encounter Details Date Type Department Care Team Description 09/22/2016 Hospital Encounter Claire Tang Jsu Allison Idiopathic acute Clinic Outpatient MD Ayan pancreatitis, Lab Draw Site #6 [facility] unspecified [address] [place], [place] [address] [id number] Allergies Active Allergy Reactions Severity Noted Date Comments Ciprofloxacin Hives 12/01/2014 Hives in the 80s Penicillin Hives 12/01/2014 Hives in the 80s Tetracycline 12/01/2014 as of this encounter Medications Prescription Sig. Disp. Refills Start Date End Date Status mometasone-formote Inhale 2 puffs 01/11/2012 Active rol (DULERA) 200-5 2 (two) times a mcg/actuation HF day. oxygen Inhale 2.5 Active L/min nightly. omeprazole Take 1 (one) 30 capsule 11 08/18/2016 Active (PRILOSEC) 40 MG capsule (40 mg 8 capsuleIndications total) by mouth : Generalized daily. abdominal pain aspirin 81 MG EC Take 1 tablet Discontinued tablet by mouth daily 8 . finasteride Take 1 tablet 30 tablet 11 04/16/2015 Discontinued (PROSCAR) 5 mg (5 mg total) by 7 tablet mouth daily. OCEAN NASAL 0.65 % Instill 2 09/25/2015 Discontinued nasal spray sprays into 7 each nostril as needed . alfuzosin Take 1 tablet 30 tablet 11 10/08/2015 Discontinued (UROXATRAL) 10 mg (10 mg total) 7 24 hr by mouth at tabletIndications: bedtime. Benign nodular prostatic hyperplasia with lower urinary tract symptoms fluocinonide Apply topically 15 g 0 01/17/2016 Discontinued (LIDEX) 0.05 % 2 (two) times a 7 creamIndications: day .5 gm BID Lichen simplex to L leg rash chronicus for 15 days. diphenoxylate-atro Take 1 tablet Discontinued pine (LOMOTIL) by mouth 4 7 2.5-0.025 mg per (four) times a tablet day as needed for diarrhea. pancrelipase, Take 1 (one) 90 capsule 0 08/07/2016 Discontinued Rep-Xcuh-Cjir, capsule (12,000 7 (CREON) units of lipase 12,000-38,000 total) by mouth -60,000 unit CpDR 3 (three) times capsule a day with meals. as of this encounter Active Problems Problem Noted Date BPH with obstruction/lower urinary tract symptoms 11/04/2015 Elevated PSA 11/04/2015 Abnormal PSA 10/28/2015 Benign nodular prostatic hyperplasia with lower urinary tract symptoms 10/08/2015 Chronic obstructive pulmonary disease (HCC) 10/08/2015 Pure hypercholesterolemia 10/08/2015 Resolved Problems Problem Noted Date Resolved Date Prostatitis, chronic 11/10/2015 02/09/2017 Social History Tobacco Use Types Packs/Day Years Used Date Former Smoker 0.25 Smokeless Tobacco: Never Used Comments: 1/4 PPD Alcohol Use Drinks/Week oz/Week Comments Yes rarely Sex Assigned at Date Recorded Not on file as of this encounter Plan of Treatment Upcoming Encounters Date Type Specialty Care Team Description 07/03/2017 Office Visit Home Health Services Betty [...] Radiation Oncology 07/16/2017 Radiation Oncology Radiation Oncology 07/16/2017 Office Visit Oncology Sherif Valles MD [address] [facility] [address] [place] [address] [phone] 07/17/2017 Office Visit Home Health Services Betty Gates, PAT 07/17/2017 Radiation Oncology Radiation Oncology 07/18/2017 Radiation Oncology Radiation Oncology 07/19/2017 Radiation Oncology Radiation Oncology 07/24/2017 Office Visit Home Health Services Betty Gates, PAT 07/31/2017 Office Visit Home Health Services Betty Gates, PAT 08/01/2017 Radiation Oncology Radiation Oncology 08/07/2017 Office Visit Home Health Services Betty Gates, PAT 08/14/2017 Office Visit Home Health Services Betty [...] 07/27/2016, 01/12/2010 as of this encounter Results Lipase (09/22/2016 4:04 PM) Component Value Ref Range Lipase 197 (H) 15 - 65 U/L Specimen Performing Laboratory Blood [facility] [address] [place] [id number] Amylase (09/22/2016 4:04 PM) Component Value Ref Range Amylase Pancreatic 58.6 (H) 13.0 - 53.0 U/L Specimen Performing Laboratory Blood [facility] [address] [place] [id number] in this encounter Visit Diagnoses Diagnosis Idiopathic acute pancreatitis, unspecified complication status
--- OUTSIDE RECORDS SUMMARY | 2018-05-19 09:10 | XMS RPT_ITS | Summary of Care ---
:1940 Author Organization [facility] Address [address] [place] [id number] Care Team Providers Name Role Phone Jus Allison MD Primary Care Provider Sherif Valles MD Unavailable Varsha Pineda CNP Unavailable Fran Burris MD Unavailable Inder Guillen MD Unavailable Estefany Gaxiola RN Unavailable Unavailable Reason for Visit Auth/Cert Status Reason Specialty Diagnoses / Procedures Referred By Contact Referred To Contact Encounter Details Date Type Department Care Team Description 07/10/2017 Home Care Visit [facility] Betty Gates SN IV THERAPY Health RN ROUTINE-BILLABLE [address] [place] [address] Allergies Active Allergy Reactions Severity [...] (one) 90 capsule 11 03/02/2017 03/02/2018 Active Mqv-Wuyi-Twge, (CREON) capsule (12,000 12,000-38,000 -60,000 units of [...] Vital Sign Reading Time Taken Blood Pressure 124/60 07/10/2017 9:31 AM EDT Pulse 67 07/10/2017 9:31 AM EDT Temperature 36 ??C (96.8 ??F) 07/10/2017 9:31 AM EDT Respiratory Rate 16 07/10/2017 9:31 AM EDT Oxygen Saturation 96% 07/10/2017 9:31 AM EDT Inhaled Oxygen Concentration - - Weight 61.3 kg (135 lb 2.3 oz) 07/10/2017 9:31 AM EDT Height - - Body Mass Index 20.55 07/10/2017 9:31 AM EDT in this encounter Plan of Treatment Upcoming Encounters Date Type Specialty Care Team Description 07/10/2017 Radiation Oncology Radiation Oncology 07/11/2017 Radiation Oncology Radiation Oncology 07/12/2017 Radiation Oncology Radiation Oncology 07/13/2017 Radiation Oncology Radiation Oncology 07/16/2017 Radiation Oncology Radiation Oncology 07/16/2017 Office Visit Oncology Sherif Valles MD [address] [place] [address] [phone] 07/17/2017 Office Visit Home Health Services Betty [...] of this encounter Implants Implanted Type Area Director Construction Services Device Expiration Model / Identifier Date Serial / Lot Port Implanted Mri Isp W/8fr Cath Powerport - [id number] Catheter - Right: BARD PERIP 12/26/2017 [id number] / Implanted: Qty: 1 on 12/04/2016 by Kota Vences MD Implant Subclavian / [id number] Cath 90cm Peritoneal Open End W/Wall Slits - [id number] Catheter - N/A: Abdomen MEDTRO SHAGGY [id number] / Implanted: Qty: 1 on 01/24/2017 by Inder Guillen MD Implant / Sealant 10ml Floseal Matrix Hemostatic W/Ndl-Free Adapter - [id number] N/A: Abdomen TOBAR BIO 03/20/2018 [id number] / Implanted: Qty: 2 on 01/24/2017 by Inder Guillen MD / [id number] as of this encounter Administered Medications Active Administered Medications - up to 3 most recent administrations Medication Order MAR Action Action Date Dose Rate Site fluorouracil (5-FU) chemo home Given 07/10/2017 09:10 EDT 2,205 mg Port infusion Infuse 2,205 (two thousand two hundred five) mg into a venous catheter over 168 hr via ambulatory infusion pump.., Starting 06/11/2017, Print New Bag 07/10/2017 09:25 EDT 2,205 mg Port heparin flush,porcine,-0.9NaCl 100 unit/mL Kit Given 07/10/2017 09:12 EDT 5 mL Port Infuse 5 mL into a venous catheter as needed (Ifusaport flush post chemo administration)., Starting 05/01/2017, Historical Med sodium chloride, PF, (NORMAL SALINE FLUSH) Given 07/10/2017 09:11 EDT 10 mL Port injection Infuse 10 mL into a venous catheter as needed (Infusaport flush before and after chemo administration)., Starting Sun05/01/2017, Historical Med Given 07/10/2017 09:24 EDT 10 mL Port in this encounter
--- OUTSIDE RECORDS SUMMARY | 2018-05-19 09:10 | XMS RPT_ITS | Summary of Care ---
:1940 Author Organization [facility] Address [address] [place] [phone] Care Team Providers Name Role Phone Jus Allison MD Primary Care Provider Sherif Valles MD Unavailable Varsha Pineda CNP Unavailable Fran Burris MD Unavailable Inder Guillen MD Unavailable Estefany Gaxiola RN Unavailable Unavailable Reason for Visit Auth/Cert Status Reason Specialty Diagnoses / Procedures Referred By Contact Referred To Contact Encounter Details Date Type Department Care Team Description 07/03/2017 Home Care Visit [facility] Betty Gates SN IV THERAPY Health RN ROUTINE-BILLABLE [address] [place] [address] Allergies Active Allergy Reactions Severity [...] (one) 90 capsule 11 03/02/2017 03/02/2018 Active Fvn-Vkgc-Puii, (CREON) capsule (12,000 12,000-38,000 -60,000 units of [...] Vital Sign Reading Time Taken Blood Pressure 124/76 07/03/2017 9:28 AM EDT Pulse 80 07/03/2017 9:28 AM EDT Temperature 36 ??C (96.8 ??F) 07/03/2017 9:28 AM EDT Respiratory Rate 22 07/03/2017 9:28 AM EDT Oxygen Saturation 96% 07/03/2017 9:28 AM EDT Inhaled Oxygen Concentration - - Weight 61.2 kg (135 lb) 07/03/2017 9:28 AM EDT Height - - Body Mass Index 20.53 07/03/2017 9:28 AM EDT in this encounter Plan of Treatment Upcoming Encounters Date Type Specialty Care Team Description 07/04/2017 Radiation Oncology Radiation Oncology 07/05/2017 Radiation Oncology Radiation Oncology 07/06/2017 Radiation Oncology Radiation Oncology 07/09/2017 Radiation Oncology Radiation Oncology 07/10/2017 Office Visit Home Health Services Betty Gates RN 07/10/2017 Radiation Oncology Radiation Oncology 07/11/2017 Radiation Oncology Radiation Oncology 07/12/2017 Radiation Oncology Radiation Oncology 07/13/2017 Radiation Oncology Radiation Oncology 07/16/2017 Radiation Oncology Radiation Oncology 07/16/2017 Office Visit Oncology Sherif Valles MD [address] [place] [address] [phone] 07/17/2017 Office Visit Home Health Services Betty [...] 08/28/2017 Office Visit Home Health Services Betty Gaets, RN Health Maintenance Due Date Last Done Comments TETANUS EVERY 10 YR 1940 ZOSTER VACCINE 2001 PNEUMOCOCCAL VACCINE AGE 65+ (1 of 2006 2 - PCV13) SEQUENTIAL INFLUENZA VACCINE 10/27/2017 (Season Ended) Low-dose CT Lung Cancer Screen 04/24/2018 04/24/2017, 02/22/2017, 01/03/2017, Additional history exists COLONOSCOPY 07/27/2021 07/27/2016, 01/12/2010 as of this encounter Implants Implanted Type Area Psych Social Worker Device Expiration Model / Identifier Date Serial / Lot Port Implanted Mri Isp W/8fr Cath Powerport - [id number] Catheter - Right: BARD PERIP 12/26/2017 [id number] / Implanted: Qty: 1 on 12/04/2016 by Kota Vences MD Implant Subclavian / [id number] Cath 90cm Peritoneal Open End W/Wall Slits - [id number] Catheter - N/A: Abdomen MEDTRO SHAGGY [id number] / Implanted: Qty: 1 on 01/24/2017 by Inder Guillen MD Implant / Sealant 10ml Floseal Matrix Hemostatic W/Ndl-Free Adapter - [id number] N/A: Abdomen TOBAR BIO 03/20/2018 [id number] / Implanted: Qty: 2 on 01/24/2017 by Inder Guillen MD / [id number] as of this encounter Administered Medications Active Administered Medications - up to 3 most recent administrations Medication Order MAR Action Action Date Dose Rate Site fluorouracil (5-FU) chemo home New Bag 07/03/2017 09:20 EDT 2,205 mg Port infusion Infuse 2,205 (two thousand two hundred five) mg into a venous catheter over 168 hr via ambulatory infusion pump.., Starting 06/11/2017, Print heparin flush,porcine,-0.9NaCl 100 unit/mL Kit Given 07/03/2017 09:11 EDT 5 mL Port Infuse 5 mL into a venous catheter as needed (Ifusaport flush post chemo administration)., Starting Sun05/01/2017, Historical Med sodium chloride, PF, (NORMAL SALINE FLUSH) Given 07/03/2017 09:10 EDT 10 mL Port injection Infuse 10 mL into a venous catheter as needed (Infusaport flush before and after chemo administration)., Starting Sun05/01/2017, Historical Med Given 07/03/2017 09:19 EDT 10 mL Port in this encounter
--- OUTSIDE RECORDS SUMMARY | 2018-05-19 09:10 | XMS RPT_ITS | Summary of Care ---
:1940 Author Organization [facility] Address [address] [id number] Care Team Providers Name Role Phone Jus Allison MD Primary Care Provider Sherif Valles MD Unavailable Varsha Pineda CNP Unavailable Fran Burris MD Unavailable Inder Guillen MD Unavailable Estefany Gaxiola RN Unavailable Unavailable Reason for Visit Auth/Cert Status Reason Specialty Diagnoses / Procedures Referred By Contact Referred To Contact Encounter Details Date Type Department Care Team Description 06/19/2017 Home Care Visit [facility] Kelly Rubio [facility] PAT [place] ROUTINE-BILLABLE [address] [place] [address] Allergies Active Allergy Reactions Severity [...] nightly. omeprazole Take 1 (one) 30 capsule 08/18/2016 08/19/19 Active (PRILOSEC) 40 MG capsule (40 mg 18 capsuleIndications: total) by mouth Generalized daily. abdominal pain pancrelipase, Take 1 (one) 90 capsule 11 03/02/2017 03/02/19 Active Oyl-Dept-Zsvd, capsule (12,000 19 (CREON) units of lipase 12,000-38,000 total) by mouth -60,000 unit CpDR 3 (three) times capsule a day with meals. loperamide (IMODIUM) Take 2 mg by 05/01/2017 Active 2 mg capsule mouth as needed for diarrhea. sodium chloride, PF, Infuse 10 mL 05/01/2017 Active (NORMAL SALINE into a venous FLUSH) injection catheter as needed (Infusaport flush before and after chemo administration) . heparin Infuse 5 mL 05/01/2017 Active flush,porcine,-0.9Na into a venous Cl 100 unit/mL Kit catheter as needed (Ifusaport flush post chemo administration) . diphenhydrAMINE Take 25 mg by Active (BENADRYL) [...] total) daily. of head of pancreas (HCC) aspirin 81 mg Chew and 06/19/2017 06/20/19 Discontinued chewable tablet Swallow 81 mg 18 daily. as of this encounter Active Problems [...] Vital Sign Reading Time Taken Blood Pressure 138/64 06/19/2017 11:36 AM EDT Pulse 81 06/19/2017 11:36 AM EDT Temperature 36 ??C (96.8 ??F) 06/19/2017 11:36 AM EDT Respiratory Rate 20 06/19/2017 11:36 AM EDT Oxygen Saturation 99% 06/19/2017 11:36 AM EDT Inhaled Oxygen Concentration - - Weight - - Height - - Body Mass Index - - in this encounter Plan of Treatment Upcoming Encounters Date Type Specialty Care Team Description 06/20/2017 Radiation Oncology Radiation Oncology 06/21/2017 Radiation Oncology Radiation Oncology 06/22/2017 Radiation Oncology Radiation Oncology 06/25/2017 Radiation Oncology Radiation Oncology 06/26/2017 Office Visit Home Health Services Betty Gates RN 06/26/2017 Radiation Oncology Radiation Oncology 06/27/2017 Radiation Oncology Radiation Oncology 06/28/2017 Radiation Oncology Radiation Oncology 06/29/2017 Radiation Oncology Radiation Oncology 07/02/2017 Office Visit Oncology Sherif Valles MD [address] [facility] [address] [place] [address] [phone] 07/02/2017 Radiation Oncology Radiation Oncology 07/02/2017 Radiation [...] this encounter Implants Implanted Type Area Clinical Therapist Device Expiration Model / Identifier Date Serial / Lot Port Implanted Mri Isp W/8fr Cath Powerport - [id number] Catheter - Right: BARD PERIP 12/26/2017 [id number] / Implanted: Qty: 1 on 12/04/2016 by Kota Vences MD Implant Subclavian / [id number] Cath 90cm Peritoneal Open End W/Wall Slits - [id number] Catheter - N/A: Abdomen MEDTRO SHAGGY [id number] / Implanted: Qty: 1 on 01/24/2017 by Inder Guillen MD Implant / Sealant 10ml Floseal Matrix Hemostatic W/Ndl-Free Adapter - [id number] N/A: Abdomen TOBAR BIO 03/20/2018 [id number] / Implanted: Qty: 2 on 01/24/2017 by Inder Guillen MD / [id number] as of this encounter Administered Medications Active Administered Medications - up to 3 most recent administrations Medication Order MAR Action Action Date Dose Rate Site fluorouracil (5-FU) chemo home Given 06/19/2017 11:19 EDT 2,205 mg infusion Infuse 2,205 (two thousand two hundred five) mg into a venous catheter over 168 hr via ambulatory infusion pump.., Starting 06/11/2017, Print heparin flush,porcine,-0.9NaCl 100 unit/mL Kit Given 06/19/2017 11:10 EDT 5 mL Infuse 5 mL into a venous catheter as needed (Ifusaport flush post chemo administration)., Starting Sun05/01/2017, Historical Med sodium chloride, PF, (NORMAL SALINE FLUSH) Given 06/19/2017 11:10 EDT 10 mL injection Infuse 10 mL into a venous catheter as needed (Infusaport flush before and after chemo administration)., Starting Sun05/01/2017, Historical Med Given 06/19/2017 11:19 EDT 10 mL in this encounter
--- OUTSIDE RECORDS SUMMARY | 2018-05-19 09:10 | XMS RPT_ITS | Summary of Care ---
:1940 Author Organization [facility] Address [address] [phone] Care Team Providers Name Role Phone Jus Allison MD Primary Care Provider Sherif Valles MD Unavailable Varsha Pineda CNP Unavailable Fran Burris MD Unavailable Inder Guillen MD Unavailable Estefany Gaxiola RN Unavailable Unavailable Encounter Details Date Type Department Care Team Description 06/18/2017 Documentation [facility] Gayle Briscoe, RN Chemo Infusion Therapy [address] [place] [address] Allergies Active Allergy Reactions Severity [...] (one) 90 capsule 11 03/02/2017 03/02/2018 Active Xms-Qfnh-Oqjg, (CREON) capsule (12,000 12,000-38,000 -60,000 units of [...] over 168 hr via ambulatory infusion pump.. as of [...] encounter Progress Notes Gayle Briscoe RN - 06/18/2017 10:50 AM [facility] called and states need order faxed for patient for home infusion of continuous 5Fu, order faxed to them per request. Lavinia RNin this encounter Plan of Treatment Upcoming Encounters Date Type Specialty Care Team Description 06/19/2017 Office Visit Home Health Services Kelly Rubio RN 06/19/2017 Radiation Oncology Radiation Oncology 06/20/2017 Radiation Oncology Radiation Oncology 06/21/2017 Radiation Oncology Radiation Oncology 06/22/2017 Radiation Oncology Radiation Oncology 06/25/2017 Radiation Oncology Radiation Oncology 06/26/2017 Office Visit Home Health Services Betty Gates RN 06/26/2017 Radiation Oncology Radiation Oncology 06/27/2017 Radiation Oncology Radiation Oncology 06/28/2017 Radiation Oncology Radiation Oncology 06/29/2017 Radiation Oncology Radiation Oncology 07/02/2017 Office Visit Oncology Sherif Valles MD [address] [place] [address] [phone] 07/02/2017 Radiation Oncology Radiation Oncology 07/02/2017 Radiation [...] of this encounter Implants Implanted Type Area Counter Top Maker Device Expiration Model / Identifier Date Serial / Lot Port Implanted Mri Isp W/8fr Cath Powerport - [id number] Catheter - Right: BARD PERIP 12/26/2017 [id number] / Implanted: Qty: 1 on 12/04/2016 by Kota Vences MD Implant Subclavian / [id number] Cath 90cm Peritoneal Open End W/Wall Slits - [id number] Catheter - N/A: Abdomen MEDTRO SHAGGY [id number] / Implanted: Qty: 1 on 01/24/2017 by Inder Guillen MD Implant / Sealant 10ml Floseal Matrix Hemostatic W/Ndl-Free Adapter - [id number] N/A: Abdomen TOBAR BIO 03/20/2018 [id number] / Implanted: Qty: 2 on 01/24/2017 by Inder Guillen MD / [id number] as of this encounter
--- OUTSIDE RECORDS SUMMARY | 2018-05-19 09:10 | XMS RPT_ITS | Summary of Care ---
:1940 Author Organization [facility] Address [address] [phone] Care Team Providers Name Role Phone Jus Allison MD Primary Care Provider Sherif Valles MD Unavailable Varsha Pineda CNP Unavailable Fran Burris MD Unavailable Inder Guillen MD Unavailable Estefany Gaxiola RN Unavailable Unavailable Reason for Visit Reason Comments Pancreatic Cancer Encounter Details Date Type Department Care Team Description 06/18/2017 Office Visit [facility] Sherif Valles MD Malignant neoplasm of Center Oncology [address] [facility] head of pancreas Clinic [address] (HCC) (Primary Dx) [address] [place] [address] [place] [address] [phone] Allergies Active Allergy Reactions Severity Noted Date [...] (one) 90 capsule 11 03/02/2017 03/02/2018 Active Hzg-Ktpv-Yply, (CREON) capsule (12,000 12,000-38,000 -60,000 units of [...] Vital Sign Reading Time Taken Blood Pressure 141/71 06/18/2017 12:53 PM EDT Pulse 77 06/18/2017 12:53 PM EDT Temperature 36.9 ??C (98.5 ??F) 06/18/2017 12:53 PM EDT Respiratory Rate - - Oxygen Saturation - - Inhaled Oxygen Concentration - - Weight 62.1 kg (136 lb 14.4 oz) 06/18/2017 12:53 PM EDT Height 172.7 cm (5' 8) 06/18/2017 12:53 PM EDT Body Mass Index 20.82 06/18/2017 12:53 PM EDT in this encounter Progress Notes Sherif Valles MD - 06/18/2017 1:05 PM EDTFormatting of this note may be different from the original. [facility] [address] [place] [phone] Hematology and Oncology Progress Note Patient Name: Hi Canales MR #: [id number] : @ [facility] #: [id number] Date of Service: 06/18/17 Clinician: Sherif Valles MD Assessment/Plan: Pancreatic cancer [...] by 20% with radiation, now tolerating it well. CBC is stable, CMP is pending today. Diarrhea. Controlled now with diet management, on Creon and take imodium 2 tablets with initial BM,then 1 tablet with each subsequent BM not to exceed 12 tablets in 24 hours. Edema bilateral lower extremities. Continue lasix prn and to elevate his legs while sitting. Plan: Continue chemo with RT as scheduled now. RTC 2 wks with cbc, cmp, ca 19-9. Encouraged to increase protein rich food. ?? They voiced understanding. Encouraged to call with any other questions or concerns. ?? Chief Complaint: Follow up, pancreatic cancer. He is feeling good, good appetite, lost 2 lbs. He denies any fevers, chills, nausea, vomiting or abdominal pain. His diarrhea is pretty stable. Diagnosis: Pancreatic cancer, stage IB (T2N0M0), head [...] Colonic diverticulosis without evidence of diverticulitis. 7. Ixep-zk-tejltarp constipation. 8. Moderate prostatomegaly. MRI Abdomen on [...] on 10/31/2016, by Dr. Partha Muñoz at [place] which showed a mass in thepancreatic head [...] consistent with adenocarcinoma. He was admitted at [place] on 12/09/2016, with 1 day of increased [...] discharged yesterday. He was again discharged from [place] on 12/18/2016. He was admitted on 12/15 [...] thyromegaly, no JVD. Lymph: no cervical adenopathy. Lungs: Clear to auscultation bilaterally. Cardiac: normal S1 and S2, no murmurs, or gallops. Gastro: soft, No masses. Incisions well healed. Ventral hernia+ Extremity: no clubbing, no cyanosis. RLE edema+ Skin: RLE erythema, Neuro: alert, oriented, no focal deficits, speech normal. Psych: Pt has a normal mood and affect. Vital Signs: BP 141/71 (BP Location: Right arm) Pulse 77 Temp 98.5 ??F (36.9 ??C) (Temporal) Ht 5' 8 Wt 62.1 kg (136 lb 14.4 oz) BMI 20.82 kg/m?? Last Height and Weight with BMI: 62.1 kg (136 lb 14.4 oz) 5 8 Body mass index is 20.82 kg/m??. PMH/PSH/FH/SH: Past Medical History: Diagnosis Date [...] Procedure: COLONOSCOPY; Surgeon: Kota Vences MD; Location: [facility] Endo; Service: ??? INSERTION SUBCUTANEOUS PORT N/A 12/04/2016 Procedure: PORT PLACEMENT ; Surgeon: Kota Vences MD; Location: [facility] Main OR; Service: ??? PROSTATE BIOPSY ??? SINUS SURGERY 2003 ??? WHIPPLE PROCEDURE N/A 01/24/2017 Procedure: WHIPPLE PROCEDURE; Surgeon: Inder Guillen MD; Location: [facility] Main OR; Service: Family History Problem [...] Inhale 2.5 L/min nightly. Historical Provider, pancrelipase, Suv-Wzuk-Zdzn, (CREON) 12,000-38,000 -60,000 unit CpDR capsule Take 1 (one) capsule (12,000 units of lipase total) by mouth 3 (three) times a day with meals. 08/07/16 08/07/17 Jus Allison MD LABS: Pertinent latest labs reviewed in EMR and discussed with patient. WBC Date Value Ref Range Status 06/18/2017 5.92 4.50 - 11.00 K/mcL Final 07/07/2014 5.35 4.50 - 11.00 K/MCL RBC Date Value Ref Range Status 06/18/2017 4.26 (L) 4.50 - 5.90 M/mcL Final 07/07/2014 4.73 4.50 - 5.90 M/MCL Hemoglobin Date Value Ref Range Status 06/18/2017 12.9 (L) 13.5 - 17.5 g/dL Final 07/07/2014 15.3 13.5 - 17.5 G/DL Hematocrit Date Value Ref Range Status 06/18/2017 38.9 (L) 41.0 - 53.0 % Final 07/07/2014 45.2 41.0 - 53.0 % MCV Date Value Ref Range Status 06/18/2017 91.3 80.0 - 100.0 fL Final 07/07/2014 95.6 80.0 - 100.0 FL MCH Date Value Ref Range Status 06/18/2017 30.3 26.0 - 34.0 pg Final 07/07/2014 32.3 26.0 - 34.0 PG MCHC Date Value Ref Range Status 06/18/2017 33.2 31.0 - 37.0 g/dL Final Platelets Date Value Ref Range Status 06/18/2017 211 150 - 400 K/mcL Final RDW Date Value Ref Range Status 07/07/2014 12.5 11.6 - 14.8 % RDW - CV Date Value Ref Range Status 06/18/2017 15.8 (H) 11.6 - 14.8 % Final Sodium Date Value Ref Range Status 06/18/2017 134 (L) 135 - 145 mmol/L Final 07/07/2014 136 135 - 145 MMOL/L Potassium Date Value Ref Range Status 06/18/2017 4.5 3.5 - 5.1 mmol/L Final 07/07/2014 4.4 3.5 - 5.1 MMOL/L Chloride Date Value Ref Range Status 06/18/2017 96 (L) 98 - 108 mmol/L Final 07/07/2014 98 98 - 108 MMOL/L Bicarbonate Date Value Ref Range Status 06/18/2017 29 21 - 32 mmol/L Final 07/07/2014 28 21 - 32 MMOL/L Anion Gap Date Value Ref Range Status 06/18/2017 14 10 - 20 mmol/L Final Glucose Date Value Ref Range Status 06/18/2017 106 (H) 65 - 99 mg/dL Final 07/07/2014 94 65 - 99 MG/DL BUN Date Value Ref Range Status 06/18/2017 9 8 - 25 mg/dL Final 07/07/2014 12 8 - 25 MG/DL Creatinine Date Value Ref Range Status 06/18/2017 0.71 (L) 0.80 - 1.30 mg/dL Final 10/05/2016 0.7 (L) 0.8 - 1.3 mg/dL Final Serum Creatinine Date Value Ref Range Status 01/11/2012 0.9 0.8 - 1.3 MG/DL eGFR Date Value Ref Range Status 06/18/2017 92 >=60 mL/min/1.73 m2 Final GFR, Non Date Value Ref Range Status 01/11/2012 >60 >60 Comment: Test Units:mL/min/1.73m2 This Calculation is for Non Patients BUN/Creatinine Ratio Date Value Ref Range Status 06/18/2017 12.7 10.0 - 20.0 Final BUN/Creat Ratio Date Value Ref Range Status 07/07/2014 15.0 10.0 - 20.0 Comment: The above 18 analytes were performed by [address] [address] Ordered on: 07/07/2014, EMMA ALLISON Tests Performed at: [facility] (Unless Otherwise Specified) [address] [place] [address], [address] - [facility] #[id number] [facility] - Order ID:[id number] Sample ID:[id number] Total Protein Date Value Ref Range Status 06/18/2017 6.8 6.0 - 8.0 g/dL Final Albumin Date Value Ref Range Status 06/18/2017 3.7 3.2 - 5.2 g/dL Final Calcium Date Value Ref Range Status 06/18/2017 9.0 8.4 - 10.2 mg/dL Final 07/07/2014 10.0 8.4 - 10.2 MG/DL Alkaline Phosphatase Date Value Ref Range Status 06/18/2017 75 40 - 150 U/L Final AST Date Value Ref Range Status 06/18/2017 16 0 - 45 U/L Final ALT Date Value Ref Range Status 06/18/2017 10 0 - 40 U/L Final Total Bilirubin Date Value Ref Range Status 06/18/2017 0.5 0.0 - 1.3 mg/dL Final Diagnostic Tests: Pertinent available radiologic studies were reviewed. Follow Up: Return in about 2 weeks (around 07/02/2017) for Office Visit, Labs - See Treatment Plan. Orders Placed This Encounter Procedures ??? CBC and Differential Standing Status: Future Standing Expiration Date: 06/18/2018 ??? Comprehensive Metabolic Panel Standing Status: Future Standing Expiration Date: 06/18/2018 ??? CA 19-9 Standing Status: Future Standing Expiration Date: 06/19/2018 ? Sherif Valles MD [facility] [address] [facility], [address] [place] [address] [phone] CC: MD Inder Fink MD Andrew Freeman, [...] Office Visit Oncology Sherif Valles MD [address] [facility] [address] [place] [address] 07/02/2017 Radiation Oncology Radiation Oncology 07/02/2017 Radiation [...] Radiation Oncology 08/01/2017 Radiation Oncology Radiation Oncology Scheduled Tests Name Priority Associated Diagnoses Order Schedule CBC and Differential Routine Malignant neoplasm of Expected: 06/25/2017 head of pancreas (HCC) (Approximate), Expires: 06/18/2018 Comprehensive Metabolic Routine Malignant neoplasm of Expected: 06/25/2017 Panel head of pancreas (HCC) (Approximate), Expires: 06/18/2018 CA 19-9 Routine Malignant neoplasm of Expected: 07/02/2017 head of pancreas (HCC) (Approximate), Expires: 06/19/2018 Health Maintenance Due Date Last Done Comments TETANUS EVERY 10 YR 1940 ZOSTER VACCINE 2001 PNEUMOCOCCAL VACCINE AGE 65+ (1 of 2006 2 - PCV13) SEQUENTIAL INFLUENZA VACCINE (#1) [address] Low-dose CT Lung Cancer Screen 04/24/2018 04/24/2017, 02/22/2017, 01/03/2017, Additional history exists COLONOSCOPY 07/27/2021 07/27/2016, 01/12/2010 as of this encounter Implants Implanted Type Area Um Rn Device Expiration Model / Identifier Date Serial / Lot Port Implanted Mri Isp W/8fr Cath Powerport - [id number] Catheter - Right: BARD PERIP 12/26/2017 [id number] / Implanted: Qty: 1 on 12/04/2016 by Kota Vences MD Implant Subclavian / [id number] Cath 90cm Peritoneal Open End W/Wall Slits - [id number] Catheter - N/A: Abdomen MEDTRO SHAGGY [id number] / Implanted: Qty: 1 on 01/24/2017 by Inder Guillen MD Implant / Sealant 10ml Floseal Matrix Hemostatic W/Ndl-Free Adapter - [id number] N/A: Abdomen TOBAR BIO 03/20/2018 [id number] / Implanted: Qty: 2 on 01/24/2017 by Inder Guillen MD / [id number] as of this encounter Visit Diagnoses Diagnosis Malignant neoplasm of head of pancreas (HCC) - Primary Malignant neoplasm of head of pancreas
--- OUTSIDE RECORDS SUMMARY | 2018-05-19 09:10 | XMS RPT_ITS | Summary of Care ---
:1940 Author Organization [facility] Address [address] [id number] Care Team Providers Name Role Phone Jus Allison MD Primary Care Provider Sherif Valles MD Unavailable Varsha Pineda CNP Unavailable Fran Burris MD Unavailable Inder Guillen MD Unavailable Estefany Gaxiola RN Unavailable Unavailable Reason for Visit Auth/Cert Status Reason Specialty Diagnoses / Procedures Referred By Contact Referred To Contact Encounter Details Date Type Department Care Team Description 06/12/2017 Home Care Visit [facility] Gianna Archer IV THERAPY [facility] PAT [place] ROUTINE-BILLABLE [address] [place] [address] Allergies Active Allergy Reactions Severity [...] (one) 90 capsule 11 03/02/2017 03/02/2018 Active Ppb-Iafo-Jcas, (CREON) capsule (12,000 12,000-38,000 -60,000 units of [...] Vital Sign Reading Time Taken Blood Pressure 122/66 06/12/2017 10:13 AM EDT Pulse 100 06/12/2017 10:13 AM EDT Temperature 37.4 ??C (99.3 ??F) 06/12/2017 10:13 AM EDT Respiratory Rate 18 06/12/2017 10:13 AM EDT Oxygen Saturation - - Inhaled Oxygen Concentration - - Weight 63 kg (138 lb 12.8 oz) 06/12/2017 10:13 AM EDT Height 172.7 cm (5' 8) 06/12/2017 10:13 AM EDT Body Mass Index 21.1 06/12/2017 10:13 AM EDT in this encounter Plan of [...] Office Visit Oncology Sherif Valles MD [address] [facility] [address] [place] [address] [phone] 07/02/2017 Radiation Oncology Radiation Oncology 07/02/2017 Radiation [...] of this encounter Implants Implanted Type Area Oil Gas And Pipe Tester Device Expiration Model / Identifier Date Serial / Lot Port Implanted Mri Isp W/8fr Cath Powerport - [id number] Catheter - Right: BARD PERIP 12/26/2017 [id number] / Implanted: Qty: 1 on 12/04/2016 by Kota Vences MD Implant Subclavian / [id number] Cath 90cm Peritoneal Open End W/Wall Slits - [id number] Catheter - N/A: Abdomen MEDTRO SHAGGY [id number] / Implanted: Qty: 1 on 01/24/2017 by Inder Guillen MD Implant / Sealant 10ml Floseal Matrix Hemostatic W/Ndl-Free Adapter - [id number] N/A: Abdomen TOBAR BIO 03/20/2018 [id number] / Implanted: Qty: 2 on 01/24/2017 by Inder Guillen MD / [id number] as of this encounter
--- OUTSIDE RECORDS SUMMARY | 2018-05-19 09:10 | XMS RPT_ITS | Summary of Care ---
:1940 Author Organization [facility] Address [address] [place] [address] Care Team Providers Name Role Phone Jus Allison MD Primary Care Provider Encounter Details Date Type Department Care Team Description 07/11/2016 Hospital Encounter Claire Beckwith Jus Allison Diarrhea of Clinic Outpatient MD Ayan presumed infectious Lab Draw Site #6 [facility] origin [address] [place] [address] [place] [address] [phone] Allergies Active Allergy Reactions Severity Noted Date Comments Ciprofloxacin Hives 12/01/2014 Hives in the 80s Penicillin Hives 12/01/2014 Hives in the 80s Tetracycline 12/01/2014 as of this encounter Medications Prescription Sig. Disp. Refills Start Date End Date Status mometasone-formoterol Inhale 2 puffs 2 01/11/2012 Active (DULERA) 200-5 (two) times a day. mcg/actuation HFAA as of this encounter Active Problems Problem [...] Years Used Date Current Every Day Smoker 0.25 Comments: 1/4 PPD Alcohol Use Drinks/Week oz/Week Comments Yes Sex Assigned at Date Recorded Not on [...] Office Visit Oncology Sherif Valles MD [address] [place] [address] [phone] 07/17/2017 Office Visit Home Health Services Betty [...] 07/27/2016, 01/12/2010 as of this encounter Results Shiga Toxin, Stool (07/11/2016 11:08 AM) Component Value Ref Range Shiga Toxin 1 Shiga Toxin 1 Not Detected Shiga Toxin 1 Not Detected Shiga Toxin 2 Shiga Toxin 2 Not Detected Shiga Toxin 2 Not Detected Specimen Performing Laboratory Stool [facility] [address] [place] [address] Narrative Shiga toxin not detected by EIA.?This suggests that a Shiga toxin-producing Escherichia coli, such as E. coli O157:H7, in conjunction with a negative culture, is not present. Giardia / Cryptosporidum Antigens (07/11/2016 11:08 AM) Component Value Ref Range Giardia Antigen Negative for Giardia Lamblia Negative for Giardia Lamblia Cryptosporidium Antigen Negative for Cryptosporidium Negative for Cryptosporidium Specimen Performing Laboratory Stool [facility] [address] [place] [address] Clostridium difficile Toxin PCR (07/11/2016 11:08 AM) Component Value Ref Range Toxoigenic C. difficile Toxigenic C.diff NEGATIVE Toxigenic C.diff NEGATIVE Epidemiologic Marker 027-NAP-B1 PRESUMPTIVE 027-NAP-B1 PRESUMPTIVE 027-NAP1-B1 NEGATIVEComment: The detection NEGATIVE of the 027/NAP1/B1 strain is for epidemiological purposes only and should not be used to determine or monitor treatment. Specimen Performing Laboratory Stool [facility] [address] [place] [id number] Stool Aerobic Culture (07/11/2016 11:08 AM) Component Value Ref Range Culture Negative for Salmonella, Shigella, Yersinia, Campylobacter and E. coli 0157:H7 Gram Stain Result Many Normal Bacterial Mixture Gram Stain Result No WBC Seen Specimen Performing Laboratory Stool [facility] [address] [place] [phone] Occult Blood Immunoassay (07/11/2016 11:08 AM) Component Value Ref Range Fecal Occult Bld Positive for Occult Blood (A) Negative for Occult Blood Specimen Performing Laboratory Stool [facility] [address] [place] [phone] in this encounter Visit Diagnoses Diagnosis Diarrhea of presumed infectious origin
--- OUTSIDE RECORDS SUMMARY | 2018-05-19 09:10 | XMS RPT_ITS | Summary of Care ---
:1940 Author Organization [facility] Address [address] [id number] Care Team Providers Name Role Phone Jus Allison MD Primary Care Provider Encounter Details Date Type Department Care Team Description 07/13/2016 Hospital Encounter Claire Tang Jus Allison Lower abdominal Clinic Outpatient MD Ayan pain Lab Draw Site #6 [facility] 6 [place] [address] [place] [address] [phone] Allergies Active Allergy Reactions Severity Noted Date [...] Date Current Every Day Smoker 0.25 Comments: 1/ PPD Alcohol Use Drinks/Week oz/Week [...] Office Visit Oncology Sherif Valles MD [address] [place] [address] [phone] 07/17/2017 Office Visit Home Health Services Betty [...] 07/27/2016, 01/12/2010 as of this encounter Results CBC Auto Differential (07/13/2016 10:39 AM) Component Value Ref Range WBC 7.06 4.50 - 11.00 K/mcL RBC 4.51 4.50 - 5.90 M/mcL Hemoglobin 14.3 13.5 - 17.5 g/dL Hematocrit 42.1 41.0 - 53.0 % MCV 93.3 80.0 - 100.0 fL MCH 31.7 26.0 - 34.0 pg MCHC 34.0 31.0 - 37.0 g/dL Platelets 265 150 - 400 K/mcL RDW - CV 12.1 11.6 - 14.8 % MPV 9.8 9.0 - 15.5 fL Neutrophils 56.9 % Lymphocytes 28.6 % Monocytes 8.5 % Eosinophils 5.0 % Basophils 0.7 % IG Percent 0.30Comment: The IG parameter is the percentage % of metamyelocytes, myelocytes, and promyelocytes. Neutrophils Abs 4.02 1.70 - 7.00 K/mcL Lymphocytes Abs 2.02 0.90 - 4.00 K/mcL Monocytes Abs 0.60 0.30 - 0.90 K/mcL Eosinophils Abs 0.35 0.00 - 0.50 K/mcL Basophils Abs 0.05 0.00 - 0.30 K/mcL IG Absolute 0.02 0.00 - 0.30 K/mcL Nucleated RBC 0.0 % Nucleated RBC Abs 0.00 0.00 - 0.00 K/mcL Specimen Performing Laboratory Blood [facility] [address] [place] [address] CBC and Differential (07/13/2016 10:39 AM) Specimen Performing Laboratory Blood Narrative The following orders were created for panel order CBC and Differential. Procedure? Abnormality? Status? ---------? ------? CBC Auto Differential[[id number]]?Final result? Please view results for these tests on the individual orders. in this encounter Visit Diagnoses Diagnosis Lower abdominal pain Abdominal pain, other specified site
--- OUTSIDE RECORDS SUMMARY | 2018-05-19 09:10 | XMS RPT_ITS | Summary of Care ---
:1940 Author Organization [facility] Address [address] [id number] Care Team Providers Name Role Phone Jus Allison MD Primary Care Provider Sherif Valles MD Unavailable Varsha Pineda CNP Unavailable Fran Burris MD Unavailable Inder Guillen MD Unavailable Virginia Lawrence RN Patient Navigator Unavailable Encounter Details Date Type Department Care Team Description 03/05/2017 Hospital Encounter Jus Johnson Diarrhea, Clinic Outpatient MD Ayan unspecified type Lab Draw Site #6 [facility] 6 [place] [address] [place], [place] [id number] Allergies Active Allergy Reactions Severity Noted Date [...] (one) 90 capsule 11 03/02/2017 03/02/2018 Active Tns-Xipu-Hlta, capsule (12,000 (CREON) 12,000-38,000 units of lipase [...] 07/16/2017 Office Visit Oncology Sherif Valles MD [address] [place] [address] [phone] 07/17/2017 Office Visit Home Health Services Betty [...] Visit Home Health Services Betty Gates, PAT Health Maintenance Due Date Last Done Comments TETANUS EVERY 10 YR 1940 ZOSTER VACCINE 2001 PNEUMOCOCCAL VACCINE AGE 65+ (1 of 2006 2 - PCV13) SEQUENTIAL INFLUENZA VACCINE 10/27/2017 (Season Ended) Low-dose CT Lung Cancer Screen 04/24/2018 04/24/2017, 02/22/2017, 01/03/2017, Additional history exists COLONOSCOPY 07/27/2021 07/27/2016, 01/12/2010 as of this encounter Implants Implanted Type Area Shuttle Fixer Device Expiration Model / Identifier Date Serial / Lot Port Implanted Mri Isp W/8fr Cath Powerport - [id number] Catheter - Right: BARD PERIP 12/26/2017 [id number] / Implanted: Qty: 1 on 12/04/2016 by Kota Vences MD Implant Subclavian / [id number] Cath 90cm Peritoneal Open End W/Wall Slits - [id number] Catheter - N/A: Abdomen MEDTRO SHAGGY [id number] / Implanted: Qty: 1 on 01/24/2017 by Inder Guillen MD Implant / Sealant 10ml Floseal Matrix Hemostatic W/Ndl-Free Adapter - [id number] N/A: Abdomen TOBAR BIO 03/20/2018 [id number] / Implanted: Qty: 2 on 01/24/2017 by Inder Guillen MD / [id number] as of this encounter Results Stool/GI PCR Panel (03/05/2017 12:39 PM) Component Value Ref Range Campylobacter species Negative Negative Clostridium difficile Toxin A/B Negative Negative Plesiomonas shigelloides Negative Negative Salmonella species Negative Negative Vibrio species Negative Negative Vibrio chloreae Negative Negative Yersinia enterocolitica Negative Negative Enteroaggregative E. coli (EAEC) Negative Negative Enteropathogenic E. coli (EPEC) Negative Negative Enterotoxigenic E. coli (ETEC) Negative Negative Shiga-like toxin-producing E. coli (STEC) 1/2 Negative Negative E. coli O157 Negative Negative Shigella/Enteroinvasive E. coli (EIEC) Negative Negative Cryptosporidium species Negative Negative Cyclospora cayetanensis Negative Negative Entamoeba histolytica Negative Negative Giardia lamblia Negative Negative Adenovirus F 40/41 Negative Negative Astrovirus Negative Negative Norovirus GI/GII Negative Negative Rotavirus A Negative Negative Sapovirus Negative Negative Specimen Performing Laboratory Stool [facility] [place] [address] Narrative Results of PCR testing for stool pathogens must be taken into clinical context when making treatment decisions. Most gastrointestinal infections due to common bacterial and viral causes are self-limited in nature and do not require antimicrobial therapy. The use of antimicrobial therapy must be carefully weighed against unintended and potentially harmful consequences. The role of antimicrobial therapy depends on the implicated pathogen. In general, antimicrobial agents are only used to treat parasitic infections as well as select bacterial infections. in this encounter Visit Diagnoses Diagnosis Diarrhea, unspecified type
--- OUTSIDE RECORDS SUMMARY | 2018-05-19 09:10 | XMS RPT_ITS | Summary of Care ---
:1940 Author Organization [facility] Address [address] [id number] Care Team Providers Name Role Phone Jus Allison MD Primary Care Provider Sherif Valles MD Unavailable Varsha Pineda CNP Unavailable Fran Burris MD Unavailable Inder Guillen MD Unavailable Estefany Gaxiola RN Unavailable Unavailable Reason for Visit Reason Comments Pancreatic Cancer Encounter Details Date Type Department Care Team Description 07/02/[address] [facility] Sherif Valles MD Malignant neoplasm of head of pancreas (HCC) (Primary Dx); Center Oncology [address] [facility] Encounter for antineoplastic chemotherapy; Clinic [facility] [address] Chemotherapy follow-up examination; [address] [place] [address] Diarrhea, [place] [address] [phone] Allergies Active Allergy Reactions Severity Noted Date [...] (one) 90 capsule 11 03/02/2017 03/02/2018 Active Jns-Hfcx-Cdtf, (CREON) capsule (12,000 12,000-38,000 -60,000 units of [...] Vital Sign Reading Time Taken Blood Pressure 162/69 07/02/2017 1:31 PM EDT Pulse 74 07/02/2017 1:31 PM EDT Temperature 36.7 ??C (98 ??F) 07/02/2017 1:31 PM EDT Respiratory Rate - - Oxygen Saturation - - Inhaled Oxygen Concentration - - Weight 61.3 kg (135 lb 3.2 oz) 07/02/2017 1:31 PM EDT Height - - Body Mass Index 20.56 07/02/2017 1:31 PM EDT in this encounter Progress Notes Tayler Taylor RN - 07/02/2017 1:52 PM EDTCalled [facility] and gave verbal order to continue 5FU infusion at current dose (2,205mg) for this week and next week. Per Dr Valles no labs needed for next week. Pt to have lab drawn prior to dr delacruz in 2 weeks.Sherif Valles MD - 07/02/2017 1:48 PM EDTFormatting of this note may be different from the original. [facility] [address] [facility] [address] Hematology and Oncology Progress Note Patient Name: Hi Canales MR #: [id number] : @ [facility] #: [id number] Date of Service: 07/02/17 Clinician: Sherif Valles MD Assessment/Plan: Pancreatic cancer [...] 20% with radiation, now tolerating it well. Labs are overall stable, CA 19-9 level [...] now (last melissa of RT on 07/19). RTC 2 wks with cbc, cmp. Encouraged to increase protein rich food. Again reviewed the future treatment plan. Will plan CT after chemoRT is complete. ?? Pt and voiced understanding. Encouraged to [...] Colonic diverticulosis without evidence of diverticulitis. 7. Gcxg-wd-ckrhmabi constipation. 8. Moderate prostatomegaly. MRI Abdomen on [...] on 10/31/2016, by Dr. Partha Muñoz at [place] which showed a mass in thepancreatic head [...] consistent with adenocarcinoma. He was admitted at [place] on 12/09/2016, with 1 day of increased [...] discharged yesterday. He was again discharged from [place] on 12/18/2016. He was admitted on 12/15 [...] mood and affect. Vital Signs: BP (!) 162/69 (BP Location: Right arm) Pulse 74 Temp 98 ??F (36.7 ??C) (Temporal) Wt 61.3 kg (135 lb 3.2 oz) BMI 20.56 kg/m?? Last Height and Weight with BMI: 61.3 kg (135 lb 3.2 oz) Body mass index is 20.56 kg/m??. PMH/PSH/FH/SH: Past Medical History: Diagnosis Date ??? Arthritis ??? BPH (benign prostatic hyperplasia) ??? Cancer (HCC) skin cancer ??? Cataract ??? Chemotherapy adverse reaction 12/01/2016 has had 2 treatments-- getting port now. Had adverse reaction to zofran after first treatment ??? Chronic diarrhea current problem (07/21/16), stool specimen positive for blood ([facility]) per pt ??? Colon polyps [...] Procedure: COLONOSCOPY; Surgeon: Kota Vences MD; Location: [facility] Endo; Service: ??? INSERTION SUBCUTANEOUS PORT N/A 12/04/2016 Procedure: PORT PLACEMENT ; Surgeon: Kota Vences MD; Location: [facility] Main OR; Service: ??? PROSTATE BIOPSY ??? SINUS SURGERY 2003 ??? WHIPPLE PROCEDURE N/A 01/24/2017 Procedure: WHIPPLE PROCEDURE; Surgeon: Inder Guillen MD; Location: [facility] Main OR; Service: Family History Problem Relation [...] Inhale 2.5 L/min nightly. Historical Provider, pancrelipase, Ojh-Atfd-Hkvk, (CREON) 12,000-38,000 -60,000 unit CpDR capsule Take 1 (one) capsule (12,000 units of lipase total) by mouth 3 (three) times a day with meals. 08/07/16 08/07/17 Jus Allison MD LABS: Pertinent latest labs reviewed in EMR and discussed with patient. WBC Date Value Ref Range Status 06/29/2017 5.62 4.50 - 11.00 K/mcL Final 07/07/2014 5.35 4.50 - 11.00 K/MCL RBC Date Value Ref Range Status 06/29/2017 3.99 (L) 4.50 - 5.90 M/mcL Final 07/07/2014 4.73 4.50 - 5.90 M/MCL Hemoglobin Date Value Ref Range Status 06/29/2017 12.4 (L) 13.5 - 17.5 g/dL Final 07/07/2014 15.3 13.5 - 17.5 G/DL Hematocrit Date Value Ref Range Status 06/29/2017 37.0 (L) 41.0 - 53.0 % Final 07/07/2014 45.2 41.0 - 53.0 % MCV Date Value Ref Range Status 06/29/2017 92.7 80.0 - 100.0 fL Final 07/07/2014 95.6 80.0 - 100.0 FL MCH Date Value Ref Range Status 06/29/2017 31.1 26.0 - 34.0 pg Final 07/07/2014 32.3 26.0 - 34.0 PG MCHC Date Value Ref Range Status 06/29/2017 33.5 31.0 - 37.0 g/dL Final Platelets Date Value Ref Range Status 06/29/2017 191 150 - 400 K/mcL Final RDW Date Value Ref Range Status 07/07/2014 12.5 11.6 - 14.8 % RDW - CV Date Value Ref Range Status 06/29/2017 15.9 (H) 11.6 - 14.8 % Final Sodium Date Value Ref Range Status 06/29/2017 130 (L) 135 - 145 mmol/L Final 07/07/2014 136 135 - 145 MMOL/L Potassium Date Value Ref Range Status 06/29/2017 4.6 3.5 - 5.1 mmol/L Final 07/07/2014 4.4 3.5 - 5.1 MMOL/L Chloride Date Value Ref Range Status 06/29/2017 91 (L) 98 - 108 mmol/L Final 07/07/2014 98 98 - 108 MMOL/L Bicarbonate Date Value Ref Range Status 06/29/2017 28 21 - 32 mmol/L Final 07/07/2014 28 21 - 32 MMOL/L Anion Gap Date Value Ref Range Status 06/29/2017 16 10 - 20 mmol/L Final Glucose Date Value Ref Range Status 06/29/2017 98 65 - 99 mg/dL Final 07/07/2014 94 65 - 99 MG/DL BUN Date Value Ref Range Status 06/29/2017 9 8 - 25 mg/dL Final 07/07/2014 12 8 - 25 MG/DL Creatinine Date Value Ref Range Status 06/29/2017 0.69 (L) 0.80 - 1.30 mg/dL Final 10/05/2016 0.7 (L) 0.8 - 1.3 mg/dL Final Serum Creatinine Date Value Ref Range Status 01/11/2012 0.9 0.8 - 1.3 MG/DL eGFR Date Value Ref Range Status 06/29/2017 93 >=60 mL/min/1.73 m2 Final GFR, Non Date Value Ref Range Status 01/11/2012 >60 >60 Comment: Test Units:mL/min/1.73m2 This Calculation is for Non Patients BUN/Creatinine Ratio Date Value Ref Range Status 06/29/2017 13.0 10.0 - 20.0 Final BUN/Creat Ratio Date Value Ref Range Status 07/07/2014 15.0 10.0 - 20.0 Comment: The above 18 analytes were performed by [address] [address] Ordered on: 07/07/2014, EMMA ALLISON Tests Performed at: [facility] (Unless Otherwise Specified) [address] [place] [address], [address] - [place] #[id number] [facility] - Order ID:[id number] Sample ID:[id number] Total Protein Date Value Ref Range Status 06/29/2017 6.3 6.0 - 8.0 g/dL Final Albumin Date Value Ref Range Status 06/29/2017 4.1 3.2 - 5.2 g/dL Final Calcium Date Value Ref Range Status 06/29/2017 9.1 8.4 - 10.2 mg/dL Final 07/07/2014 10.0 8.4 - 10.2 MG/DL Alkaline Phosphatase Date Value Ref Range Status 06/29/2017 69 40 - 150 U/L Final AST Date Value Ref Range Status 06/29/2017 18 0 - 45 U/L Final ALT Date Value Ref Range Status 06/29/2017 10 0 - 40 U/L Final Total Bilirubin Date Value Ref Range Status 06/29/2017 0.5 0.0 - 1.3 mg/dL Final Diagnostic Tests: Pertinent available radiologic studies were reviewed. Follow Up: Return in about 2 weeks (around 07/16/2017) for Office Visit, Infusion - See Treatment Plan, Labs - See Treatment Plan. No orders of the defined types were placed in this encounter. ? Sherif Valles MD [facility] [address] [facility], [address] [place] [address] [phone] CC: MD Inder Fink MD Andrew Freeman, MD in this encounter Plan of Treatment Upcoming Encounters Date Type Specialty Care Team Description 07/02/2017 Radiation Oncology Radiation Oncology Cole Rivera MD [address] [place] [address] [phone] 07/03/2017 Office Visit Home Health Services Betty [...] Office Visit Oncology Sherif Valles MD [address] [address] 07/17/2017 Office Visit Home Health Services Betty [...] Visit Home Health Services Betty Gates RN 08/21/2017 Office Visit Home Health Services Betty [...] of this encounter Implants Implanted Type Area Operations Supervisor Device Expiration Model / Identifier Date Serial / Lot Port Implanted Mri Isp W/8fr Cath Powerport - [id number] Catheter - Right: BARD PERIP 12/26/2017 [id number] / Implanted: Qty: 1 on 12/04/2016 by Kota Vences MD Implant Subclavian / [id number] Cath 90cm Peritoneal Open End W/Wall Slits - [id number] Catheter - N/A: Abdomen MEDTRO SHAGGY [id number] / Implanted: Qty: 1 on 01/24/2017 by Inder Guillen MD Implant / Sealant 10ml Floseal Matrix Hemostatic W/Ndl-Free Adapter - [id number] N/A: Abdomen TOBAR BIO 03/20/2018 [id number] / Implanted: Qty: 2 on 01/24/2017 by Inder Guillen MD / [id number] as of this encounter Visit Diagnoses Diagnosis Malignant neoplasm of head of pancreas (HCC) - Primary Malignant neoplasm of head of pancreas Encounter for antineoplastic chemotherapy Chemotherapy follow-up examination Diarrhea, unspecified type
--- OUTSIDE RECORDS SUMMARY | 2018-05-19 09:10 | XMS RPT_ITS | Summary of Care ---
:1940 Author Organization [facility] Address [address] [id number] Care Team Providers Name Role Phone Jus Allison MD Primary Care Provider Encounter Details Date Type Department Care Team Description 08/18/2016 Hospital Encounter [facility] Jus Allison Generalized Clinic Outpatient MD Ayan abdominal pain Lab Draw Site #6 [facility] 6 [place] [address] [place] [address] [phone] Allergies Active Allergy Reactions Severity Noted Date [...] total) by mouth Generalized abdominal daily. pain as of this encounter Active Problems [...] 07/16/2017 Office Visit Oncology Sherif Valles MD [address] [place] [address] [phone] 07/17/2017 Office Visit Home Health Services Betty [...] 01/12/2010 as of this encounter Results Lipase (08/18/2016 11:40 AM) Component Value Ref Range Lipase 660 (H) 15 - 65 U/L Specimen Performing Laboratory Blood [facility] [address] [place] [id number] Amylase (08/18/2016 11:40 AM) Component Value Ref Range Amylase Pancreatic 172.1 (H) 13.0 - 53.0 U/L Specimen Performing Laboratory Blood [facility] [address] [place] [address] Hepatic Function Panel (08/18/2016 11:40 AM) Component Value Ref Range Total Protein 6.7 6.0 - 8.0 g/dL Albumin 4.2 3.2 - 5.2 g/dL Total Bilirubin 0.5 0.0 - 1.3 mg/dL Bilirubin, Direct 0.1 0.0 - 0.4 mg/dL Alkaline Phosphatase 78 40 - 150 U/L AST 18 0 - 45 U/L ALT 15 0 - 40 U/L Specimen Performing Laboratory Blood [facility] [address] [place] [id number] in this encounter Visit Diagnoses Diagnosis Generalized abdominal pain Abdominal pain, generalized
--- OUTSIDE RECORDS SUMMARY | 2018-05-19 09:11 | XMS RPT_ITS | Summary of Care ---
:1940 Author Organization [facility] Address [address] [id number] Care Team Providers Name Role Phone Jus Allison MD Primary Care Provider Sherif Valles MD Unavailable Varsha Pineda CNP Unavailable Fran Burris MD Unavailable Inder Guileln MD Unavailable Estfeany Gaxiola RN Unavailable Unavailable Reason for Visit Auth/Cert Status Reason Specialty Diagnoses / Procedures Referred By Contact Referred To Contact Encounter Details Date Type Department Care Team Description 05/22/2017 Home Care Visit [facility] IV THERAPY [facility] PAT [place] ROUTINE-BILLABLE [address] [place] [address] Allergies Active Allergy Reactions Severity [...] (one) 90 capsule 11 03/02/2017 03/02/2018 Active Qac-Bkyv-Dgrr, (CREON) capsule (12,000 12,000-38,000 -60,000 units of [...] Sign Reading Time Taken Blood Pressure 142/70 05/22/2017 10:13 AM EDT Pulse 90 05/22/2017 10:13 AM EDT Temperature 37.1 ??C (98.8 ??F) 05/22/2017 10:13 AM EDT Respiratory Rate 18 05/22/2017 10:13 AM EDT Oxygen Saturation - - Inhaled Oxygen Concentration - - Weight 64.9 kg (143 lb) 05/22/2017 10:13 AM EDT Height - - Body Mass Index 21.74 05/22/2017 10:13 AM EDT in this encounter Plan of Treatment Upcoming Encounters Date Type Specialty Care Team Description 05/25/2017 Nurse Only Infusion Therapy Sherif Valles MD [address] [address] 05/28/2017 Office Visit Oncology Sherif Valles MD [address] [address] 05/29/2017 Office Visit Home Health Services Betty Gates RN 06/05/2017 Office Visit Home Health Services Betty Gates, PAT 06/12/2017 Office Visit Home Health Services Betty Gates, PAT 06/19/2017 Office Visit Home Health Services Betty Gates, PAT 06/26/2017 Office Visit Home Health Services Betty Gates, RN Health Maintenance Due Date Last Done Comments TETANUS EVERY 10 YR 1940 ZOSTER VACCINE 2001 PNEUMOCOCCAL VACCINE AGE 65+ (1 of 2006 2 - PCV13) SEQUENTIAL INFLUENZA VACCINE (#1) 2016 Low-dose CT Lung Cancer Screen 04/24/2018 04/24/2017, 02/22/2017, 01/03/2017, Additional history exists COLONOSCOPY 07/27/2021 07/27/2016, 01/12/2010 as of this encounter Implants Implanted Type Area Engineer Geophysical Laboratory Device Expiration Model / Identifier Date Serial / Lot Port Implanted Mri Isp W/8fr Cath Powerport - [id number] Catheter - Right: BARD PERIP 12/26/2017 [id number] / Implanted: Qty: 1 on 12/04/2016 by Kota Vences MD Implant Subclavian / [id number] Cath 90cm Peritoneal Open End W/Wall Slits - [id number] Catheter - N/A: Abdomen MEDTRO SHAGGY [id number] / Implanted: Qty: 1 on 01/24/2017 by Inder Guillen MD Implant / Sealant 10ml Floseal Matrix Hemostatic W/Ndl-Free Adapter - [id number] N/A: Abdomen TOBAR BIO 03/20/2018 [id number] / Implanted: Qty: 2 on 01/24/2017 by Inder Guillen MD / [id number] as of this encounter Administered Medications Active Administered Medications - up to 3 most recent administrations Medication Order MAR Action Action Date Dose Rate Site fluorouracil (5-FU) chemo home Given 05/22/2017 10:24 EDT 2,804 mg infusion Infuse 2,804 (two thousand eight hundred four) mg into a venous catheter over 168 hr via ambulatory infusion pump.., Starting 05/07/2017, Print sodium chloride, PF, (NORMAL SALINE FLUSH) Given 05/22/2017 10:24 EDT 10 mL injection Infuse 10 mL into a venous catheter as needed (Infusaport flush before and after chemo administration)., Starting Sun05/01/2017, Historical Med in this encounter Insurance Payer Benefit Plan / Group Subscriber ID Type Phone Address [employer] MA[employer]GED MEDICARE [employer] [facility] GOLD PLUS HMO xxxxxxxxx HCAP/JESSICA 80% JESSICA xxxxxxxxx [phone] [id number] as of this encounter
--- OUTSIDE RECORDS SUMMARY | 2018-05-19 09:11 | XMS RPT_ITS | Summary of Care ---
:1940 Author Organization [facility] [place] Address [address] [id number] Care Team Providers Name Role Phone Jus Allison MD Primary Care Provider Sherif Valles MD Unavailable Varsha Pineda CNP Unavailable Fran Burris MD Unavailable Inder Guillen MD Unavailable Estefany Gaxiola RN Unavailable Unavailable Reason for Visit Reason Comments port draw for lab work Encounter Details Date Type Department Care Team Description 06/11/2017 Nurse Only [facility] Sherif Valles MD Encounter for antineoplastic chemotherapy (Primary Dx); Center Chemo 801 [facility] Malignant neoplasm of head of pancreas (HCC) Infusion Therapy [address] [place] [address] [place] [address] [phone] Allergies Active Allergy Reactions Severity Noted Date [...] (one) 30 capsule 11 08/18/2016 08/19/19 Active (PRILOSEC) 40 MG capsule (40 mg 18 capsuleIndications: total) by mouth Generalized daily. abdominal pain pancrelipase, Take 1 (one) 90 capsule 11 03/02/2017 03/02/19 Active Dyp-Qzpd-Ehtx, capsule (12,000 19 (CREON) units of lipase [...] needed capsule for itching. fluorouracil (5-FU) Infuse 2,804 1 each 0 05/07/2017 06/12/19 Discontinued chemo home (two thousand 18 infusionIndications: eight hundred Malignant neoplasm four) mg into a of head of pancreas [...] Vital Sign Reading Time Taken Blood Pressure 120/82 06/11/2017 9:57 AM EDT Pulse 87 06/11/2017 9:57 AM EDT Temperature 36.6 ??C (97.9 ??F) 06/11/2017 9:57 AM EDT Respiratory Rate 18 06/11/2017 9:57 AM EDT Oxygen Saturation - - Inhaled Oxygen Concentration - - Weight - - Height - - Body Mass Index - - in this encounter Plan of Treatment Upcoming Encounters Date Type Specialty Care Team Description 06/18/2017 Office Visit Oncology Sherif Valles MD [address] [place] [address] [phone] 06/18/2017 Radiation Oncology Radiation Oncology 06/19/2017 Office Visit Home Health Services Kelly Rubio RN 06/19/2017 Radiation Oncology Radiation Oncology 06/20/2017 Radiation Oncology Radiation Oncology 06/21/2017 Radiation Oncology Radiation Oncology 06/22/2017 Radiation Oncology Radiation Oncology 06/25/2017 Radiation Oncology Radiation Oncology 06/26/2017 Office Visit Home Health Services YajairaBetty vee RN 06/26/2017 Radiation Oncology Radiation Oncology 06/27/2017 [...] of this encounter Implants Implanted Type Area Backup Administrative Coordinator Device Expiration Model / Identifier Date Serial / Lot Port Implanted Mri Isp W/8fr Cath Powerport - [id number] Catheter - Right: BARD PERIP 12/26/2017 [id number] / Implanted: Qty: 1 on 12/04/2016 by Kota Vences MD Implant Subclavian / [id number] Cath 90cm Peritoneal Open End W/Wall Slits - [id number] Catheter - N/A: Abdomen MEDTRO SHAGGY [id number] / Implanted: Qty: 1 on 01/24/2017 by Inder Guillen MD Implant / Sealant 10ml Floseal Matrix Hemostatic W/Ndl-Free Adapter - [id number] N/A: Abdomen TOBAR BIO 03/20/2018 [id number] / Implanted: Qty: 2 on 01/24/2017 by Inder Guillen MD / [id number] as of this encounter Results Comprehensive Metabolic Panel (06/11/2017 9:55 AM) Component Value Ref Range Sodium 135 135 - 145 mmol/L Potassium 4.1 3.5 - 5.1 mmol/L Chloride 96 (L) 98 - 108 mmol/L Bicarbonate 27 21 - 32 mmol/L Anion Gap 16 10 - 20 mmol/L Glucose 150 (H) 65 - 99 mg/dL BUN 9 8 - 25 mg/dL Creatinine 0.68 (L) 0.80 - 1.30 mg/dL eGFR 93 >=60 mL/min/1.73 m2 BUN/Creatinine Ratio 13.2 10.0 - 20.0 Total Protein 6.4 6.0 - 8.0 g/dL Albumin 3.5 3.2 - 5.2 g/dL Calcium 8.7 8.4 - 10.2 mg/dL Alkaline Phosphatase 72 40 - 150 U/L AST 17 0 - 45 U/L ALT 11 0 - 40 U/L Total Bilirubin 0.4 0.0 - 1.3 mg/dL Specimen Performing Laboratory Blood [facility] [address] [place] [address] Narrative The eGFR should be used for monitoring renal function only and not for medication dosing. CBC Auto Differential (06/11/2017 9:55 AM) Component Value Ref Range WBC 6.04 4.50 - 11.00 K/mcL RBC 4.32 (L) 4.50 - 5.90 M/mcL Hemoglobin 13.0 (L) 13.5 - 17.5 g/dL Hematocrit 38.8 (L) 41.0 - 53.0 % MCV 89.8 80.0 - 100.0 fL MCH 30.1 26.0 - 34.0 pg MCHC 33.5 31.0 - 37.0 g/dL Platelets 214 150 - 400 K/mcL RDW - CV 15.9 (H) 11.6 - 14.8 % MPV 9.6 9.0 - 15.5 fL Neutrophils 48.7 % Lymphocytes 33.8 % Monocytes 9.4 % Eosinophils 7.1 % Basophils 1.0 % Neutrophils Abs 2.94 1.70 - 7.00 K/mcL Lymphocytes Abs 2.04 0.90 - 4.00 K/mcL Monocytes Abs 0.57 0.30 - 0.90 K/mcL Eosinophils Abs 0.43 0.00 - 0.50 K/mcL Basophils Abs 0.06 0.00 - 0.30 K/mcL Nucleated RBC 0.0 % Nucleated RBC Abs 0.00 0.00 - 0.00 K/mcL Specimen Performing Laboratory Blood [facility] [address] [place] [address] CBC and Differential (06/11/2017 9:55 AM) Specimen Performing Laboratory Blood Narrative The following orders were created for panel order CBC and Differential. Procedure? Abnormality? Status? ---------? ------? CBC Auto Differential[[id number]]?Abnormal?Final result? Please view results for these tests on the individual orders. in this encounter Visit Diagnoses Diagnosis Encounter for antineoplastic chemotherapy - Primary Malignant neoplasm of head of pancreas (HCC) Malignant neoplasm of head of pancreas Administered Medications Inactive Administered Medications - up to 3 most recent administrations Medication Order MAR Action Action Date Dose Rate Site heparin, porcine (PF) injection Given 06/11/2017 10:10 EDT 500 Units 500 Units 500 Units, Intravenous, As needed, For port needle removal and monthly., Starting 06/11/17 at 0954, For ports, flush with 10 mL 0.9% NaCl IV and 5 mL Heparin (100 units/mL) prior to needle removal and every month when not in use. sodium chloride (PF) (NS) flush 10 mL Given 06/11/2017 10:09 EDT 10 mL 10 mL, Intravenous, As needed, line care, Starting 06/11/17 at 0954, For Central Lines. Flush before and after medication administration. sodium chloride (PF) (NS) flush 20 mL Given 06/11/2017 10:10 EDT 20 mL 20 mL, Intravenous, As needed, line care, Starting 06/11/17 at 0954, For Central Lines. Flush after TPN, blood products, and blood draws. in this encounter
--- OUTSIDE RECORDS SUMMARY | 2018-05-19 09:11 | XMS RPT_ITS | Summary of Care ---
:1940 Author Organization [facility] Address [address] [id number] Care Team Providers Name Role Phone Jus Allison MD Primary Care Provider Sherif Valles MD Unavailable Varsha Pineda CNP Unavailable Fran Burris MD Unavailable Inder Guillen MD Unavailable Estefany Gaxiola RN Unavailable Unavailable Reason for Visit Reason Comments Pancreatic Cancer Encounter Details Date Type Department Care Team Description 06/11/2017 Office Visit [facility] Sherif Valles MD Malignant neoplasm of Center Oncology 801 [facility] head of pancreas Clinic [address] (HCC) (Primary Dx) [address] [place] [address] [place] [address] [phone] Allergies Active Allergy Reactions Severity Noted Date [...] (one) 90 capsule 11 03/02/2017 03/02/19 Active Ezn-Pups-Hkqb, capsule (12,000 19 (CREON) units of lipase [...] over 168 hr via ambulatory infusion pump.. fluorouracil (5-FU) Infuse 2,804 1 each 0 [...] Vital Sign Reading Time Taken Blood Pressure 158/74 06/11/2017 10:13 AM EDT Pulse 74 06/11/2017 10:13 AM EDT Temperature 36.6 ??C (97.8 ??F) 06/11/2017 10:13 AM EDT Respiratory Rate - - Oxygen Saturation - - Inhaled Oxygen Concentration - - Weight 63 kg (138 lb 12.8 oz) 06/11/2017 10:13 AM EDT Height - - Body Mass Index 21.1 06/11/2017 10:13 AM EDT in this encounter Progress Notes Tayler Taylor RN - 06/11/2017 10:40 [facility]w Crist[facility]bal notifying her that pt will be starting back on continuous 5FU infusion tomorrow. Order faxed to them.Sherif Valles MD - 06/11/2017 10:15 AM EDT Formatting of this note may be different from the original. [facility] [address] [facility] [id number] Hematology and Oncology Progress Note Patient Name: Hi Canales MR #: [id number] : @ [facility] #: [id number] Date of Service: 06/11/17 Clinician: Sherif Valels MD Assessment/Plan: Pancreatic cancer (adenocarcinoma), involving pancreatic [...] extra week of break from the chemo. Now he is scheduled to start chemoRT with continuous 5FU from am, from June 12 and will further decrease the chemotherapy dose by 20% with radiation per his poor tolerance. Case d/w Dr Rivera today. Again, I reviewed the chemotherapy schedule with him and his , and they voiced understanding. Diarrhea. Controlled now with diet management, on Creon and take imodium 2 tablets with initial BM,then 1 tablet with each subsequent BM not to exceed 12 tablets in 24 hours. Edema bilateral lower extremities. Continue lasix prn and to elevate his legs while sitting. ?? Will have him return in 1 week with repeat CBC diff, CMP. ?? Patient and ??verbalize understanding and all questions addressed to best of my ability at this time. Encouraged to call with any other questions or concerns. ?? Chief Complaint: Follow up, pancreatic cancer. He is here for followup evaluation. He is feeling much better today, His appetite is very good. He denies any fevers, chills, nausea, vomiting or abdominal pain. His diarrhea is pretty stable. Diagnosis: Pancreatic cancer, stage IB (T2N0M0), head and uncinate process, 2.1 cm, Dx-10/31/2016. Treatment: He is status post neoadjuvant chemotherapy with gemcitabine plus Abraxane from 11/16/2016 to 12/07/2016, 1 cycle. Status post Whipple procedure by Dr. Guillen on 01/24/2017. S/P weekly 5FU from 05/08/17 to 05/22/17. History of Presenting Illness: Mr Hi Canales [...] Colonic diverticulosis without evidence of diverticulitis. 7. Uhnj-xn-kltlhrps constipation. 8. Moderate prostatomegaly. MRI Abdomen on [...] on 10/31/2016, by Dr. Partha Muñoz at [place] which showed a mass in thepancreatic head [...] consistent with adenocarcinoma. He was admitted at [place] on 12/09/2016, with 1 day of increased [...] discharged yesterday. He was again discharged from [place] on 12/18/2016. He was admitted on 12/15 [...] mood and affect. Vital Signs: BP (!) 158/74 (BP Location: Right arm) Pulse 74 Temp 97.8 ??F (36.6 ??C) (Tympanic) Wt 63 kg (138 lb 12.8 oz) BMI 21.10 kg/m?? Last Height and Weight with BMI: 63 kg (138 lb 12.8 oz) Body mass index is 21.1 kg/m??. PMH/PSH/FH/SH: Past Medical History: Diagnosis Date ??? Arthritis ??? BPH (benign prostatic hyperplasia) ??? Cancer (HCC) skin cancer ??? Cataract ??? Chemotherapy adverse reaction 12/01/2016 has had 2 treatments-- getting port now. Had adverse reaction to zofran after first treatment ??? Chronic diarrhea current problem (07/21/16), stool specimen positive for blood ([facility]) per pt ??? Colon polyps 2010 benign [...] Procedure: COLONOSCOPY; Surgeon: Kota Vences MD; Location: [facility] Endo; Service: ??? INSERTION SUBCUTANEOUS PORT N/A 12/04/2016 Procedure: PORT PLACEMENT ; Surgeon: Kota Vences MD; Location: [facility] Main OR; Service: ??? PROSTATE BIOPSY ??? SINUS SURGERY 2003 ??? WHIPPLE PROCEDURE N/A 01/24/2017 Procedure: WHIPPLE PROCEDURE; Surgeon: Inder Guillen MD; Location: [facility] Main OR; Service: Family History Problem [...] Inhale 2.5 L/min nightly. Historical Provider, pancrelipase, Mew-Tfrc-Qwgc, (CREON) 12,000-38,000 -60,000 unit CpDR capsule Take 1 (one) capsule (12,000 units of lipase total) by mouth 3 (three) times a day with meals. 08/07/16 08/07/17 Jus Allison MD LABS: Pertinent latest labs reviewed in EMR and discussed with patient. WBC Date Value Ref Range Status 06/11/2017 6.04 4.50 - 11.00 K/mcL Final 07/07/2014 5.35 4.50 - 11.00 K/MCL RBC Date Value Ref Range Status 06/11/2017 4.32 (L) 4.50 - 5.90 M/mcL Final 07/07/2014 4.73 4.50 - 5.90 M/MCL Hemoglobin Date Value Ref Range Status 06/11/2017 13.0 (L) 13.5 - 17.5 g/dL Final 07/07/2014 15.3 13.5 - 17.5 G/DL Hematocrit Date Value Ref Range Status 06/11/2017 38.8 (L) 41.0 - 53.0 % Final 07/07/2014 45.2 41.0 - 53.0 % MCV Date Value Ref Range Status 06/11/2017 89.8 80.0 - 100.0 fL Final 07/07/2014 95.6 80.0 - 100.0 FL MCH Date Value Ref Range Status 06/11/2017 30.1 26.0 - 34.0 pg Final 07/07/2014 32.3 26.0 - 34.0 PG MCHC Date Value Ref Range Status 06/11/2017 33.5 31.0 - 37.0 g/dL Final Platelets Date Value Ref Range Status 06/11/2017 214 150 - 400 K/mcL Final RDW Date Value Ref Range Status 07/07/2014 12.5 11.6 - 14.8 % RDW - CV Date Value Ref Range Status 06/11/2017 15.9 (H) 11.6 - 14.8 % Final Sodium Date Value Ref Range Status 06/04/2017 133 (L) 135 - 145 mmol/L Final 07/07/2014 136 135 - 145 MMOL/L Potassium Date Value Ref Range Status 06/04/2017 4.3 3.5 - 5.1 mmol/L Final 07/07/2014 4.4 3.5 - 5.1 MMOL/L Chloride Date Value Ref Range Status 06/04/2017 95 (L) 98 - 108 mmol/L Final 07/07/2014 98 98 - 108 MMOL/L Bicarbonate Date Value Ref Range Status 06/04/2017 26 21 - 32 mmol/L Final 07/07/2014 28 21 - 32 MMOL/L Anion Gap Date Value Ref Range Status 06/04/2017 16 10 - 20 mmol/L Final Glucose Date Value Ref Range Status 06/04/2017 105 (H) 65 - 99 mg/dL Final 07/07/2014 94 65 - 99 MG/DL BUN Date Value Ref Range Status 06/04/2017 10 8 - 25 mg/dL Final 07/07/2014 12 8 - 25 MG/DL Creatinine Date Value Ref Range Status 06/04/2017 0.70 (L) 0.80 - 1.30 mg/dL Final 10/05/2016 0.7 (L) 0.8 - 1.3 mg/dL Final Serum Creatinine Date Value Ref Range Status 01/11/2012 0.9 0.8 - 1.3 MG/DL eGFR Date Value Ref Range Status 06/04/2017 92 >=60 mL/min/1.73 m2 Final GFR, Non Date Value Ref Range Status 01/11/2012 >60 >60 Comment: Test Units:mL/min/1.73m2 This Calculation is for Non Patients BUN/Creatinine Ratio Date Value Ref Range Status 06/04/2017 14.3 10.0 - 20.0 Final BUN/Creat Ratio Date Value Ref Range Status 07/07/2014 15.0 10.0 - 20.0 Comment: The above 18 analytes were performed by [address] [address] Ordered on: 07/07/2014, EMMA ALLISON Tests Performed at: [facility] (Unless Otherwise Specified) [address] [place] [address], [address] - [facility] #[id number] [facility] - Order ID:[id number] Sample ID:[id number] Total Protein Date Value Ref Range Status 06/04/2017 6.9 6.0 - 8.0 g/dL Final Albumin Date Value Ref Range Status 06/04/2017 3.8 3.2 - 5.2 g/dL Final Calcium Date Value Ref Range Status 06/04/2017 9.1 8.4 - 10.2 mg/dL Final 07/07/2014 10.0 8.4 - 10.2 MG/DL Alkaline Phosphatase Date Value Ref Range Status 06/04/2017 87 40 - 150 U/L Final AST Date Value Ref Range Status 06/04/2017 18 0 - 45 U/L Final ALT Date Value Ref Range Status 06/04/2017 9 0 - 40 U/L Final Total Bilirubin Date Value Ref Range Status 06/04/2017 0.5 0.0 - 1.3 mg/dL Final Diagnostic Tests: Pertinent available radiologic studies were reviewed. Follow Up: Return in about 1 week (around 06/18/2017) for Office Visit, Infusion - See Treatment Plan, Labs - See Treatment Plan. No orders of the defined types were placed in this encounter. ? Sherif Valles MD [facility] [address] [facility], [address] [place] [address] [phone] CC: MD Inder Fink MD Andrew Freeman, MD in this encounter Plan of Treatment Upcoming Encounters Date Type Specialty Care Team Description 06/18/2017 Office Visit Oncology Sherif Valles MD [address] [facility] [address] [place] [address] [phone] 06/18/2017 Radiation Oncology Radiation Oncology 06/19/2017 Office [...] of this encounter Implants Implanted Type Area Railway Station Manager Device Expiration Model / Identifier Date Serial / Lot Port Implanted Mri Isp W/8fr Cath Powerport - [id number] Catheter - Right: BARD PERIP 12/26/2017 [id number] / Implanted: Qty: 1 on 12/04/2016 by Kota Vences MD Implant Subclavian / [id number] Cath 90cm Peritoneal Open End W/Wall Slits - [id number] Catheter - N/A: Abdomen MEDTRO SHAGGY [id number] / Implanted: Qty: 1 on 01/24/2017 by Inder Guillen MD Implant / Sealant 10ml Floseal Matrix Hemostatic W/Ndl-Free Adapter - [id number] N/A: Abdomen TOBAR BIO 03/20/2018 [id number] / Implanted: Qty: 2 on 01/24/2017 by Inder Guillen MD / [id number] as of this encounter Visit Diagnoses Diagnosis Malignant neoplasm of head of pancreas (HCC) - Primary Malignant neoplasm of head of pancreas
--- OUTSIDE RECORDS SUMMARY | 2018-05-19 09:11 | XMS RPT_ITS | Summary of Care ---
:1940 Author Organization [facility] Address [address] [id number] Care Team Providers Name Role Phone Jus Allison MD Primary Care Provider Sherif Valles MD Unavailable Varsha Pineda CNP Unavailable Fran Burris MD Unavailable Inder Guillen MD Unavailable Estefany Gaxiola RN Unavailable Unavailable Reason for Visit Auth/Cert Status Reason Specialty Diagnoses / Procedures Referred By Contact Referred To Contact Encounter Details Date Type Department Care Team Description 05/15/2017 Home Care Visit [facility] Betty Gates SN IV THERAPY Health RN ROUTINE-BILLABLE [address] [place] [address] Allergies Active Allergy Reactions Severity [...] (one) 90 capsule 11 03/02/2017 03/02/2018 Active Mba-Cqcd-Ntbm, (CREON) capsule (12,000 12,000-38,000 -60,000 units of [...] Vital Sign Reading Time Taken Blood Pressure 146/74 05/15/2017 11:10 AM EDT Pulse 72 05/15/2017 11:10 AM EDT Temperature 36.1 ??C (97 ??F) 05/15/2017 11:10 AM EDT Respiratory Rate 16 05/15/2017 11:10 AM EDT Oxygen Saturation 98% 05/15/2017 11:10 AM EDT Inhaled Oxygen Concentration - - Weight 65.1 kg (143 lb 8 oz) 05/15/2017 11:10 AM EDT Height - - Body Mass Index 21.82 05/15/2017 11:10 AM EDT in this encounter Plan of Treatment Upcoming Encounters Date Type Specialty Care Team Description 05/22/2017 Office Visit Home Health Services 05/25/2017 Nurse Only Infusion Therapy 05/28/2017 Office Visit Oncology Sherif Valles MD [address] [place] [address] [phone] 05/29/2017 Office Visit Home Health Services Betty Gates, PAT 06/05/2017 Office Visit Home Health Services Betty Gates, PAT 06/12/2017 Office Visit Home Health Services Betty Gates RN 06/19/2017 Office Visit Home Health Services Betty [...] of this encounter Implants Implanted Type Area Patent Law Specialist Device Expiration Model / Identifier Date Serial / Lot Port Implanted Mri Isp W/8fr Cath Powerport - [id number] Catheter - Right: BARD PERIP 12/26/2017 [id number] / Implanted: Qty: 1 on 12/04/2016 by Kota Vences MD Implant Subclavian / [id number] Cath 90cm Peritoneal Open End W/Wall Slits - [id number] Catheter - N/A: Abdomen MEDTRO SHAGGY [id number] / Implanted: Qty: 1 on 01/24/2017 by Inder Guillen MD Implant / Sealant 10ml Floseal Matrix Hemostatic W/Ndl-Free Adapter - [id number] N/A: Abdomen TOBAR BIO 03/20/2018 [id number] / Implanted: Qty: 2 on 01/24/2017 by Inder Guillen MD / [id number] as of this encounter Insurance Payer Benefit Plan / Group Subscriber ID Type Phone Address [employer] MANAGED MEDICARE [employer] M[employer] GOLD PLUS [facility] xxxxxxxxx HCAP/JESSICA 80% JESSICA xxxxxxxxx [phone] [place] [address] as of this encounter
--- OUTSIDE RECORDS SUMMARY | 2018-05-19 09:11 | XMS RPT_ITS | Summary of Care ---
:1940 Author Organization [facility] Address [address] [id number] Care Team Providers Name Role Phone Jus Allison MD Primary Care Provider Sherif Valles MD Unavailable Varsha Pineda CNP Unavailable Fran Burris MD Unavailable Inder Guillen MD Unavailable Estefany Gaxiola RN Unavailable Unavailable Reason for Referral Evaluate and Treat (Routine) Status Reason Specialty Diagnoses / Referred By Referred To Procedures Contact Contact Pending Review Radiation Diagnoses Malignant neoplasm of pancreas, unspecified location of malignancy (HCC) Sherif Valles MD Oncology [address] [facility] [address] [place] [address] Reason for Visit Reason Comments Pancreatic Cancer Encounter Details Date Type Department Care Team Description 05/28/[address] [facility] Sherif Valles MD Malignant neoplasm of Center Oncology [address] [facility] pancreas, unspecified Clinic [address] location of [address] [place] [id number] malignancy (HCC) [place] [address] (Primary Dx) [phone] Allergies Active Allergy Reactions Severity Noted Date [...] (one) 90 capsule 11 03/02/2017 03/02/2018 Active Keo-Xqxw-Hdgk, (CREON) capsule (12,000 12,000-38,000 -60,000 units of [...] Vital Sign Reading Time Taken Blood Pressure 131/69 05/28/2017 10:27 AM EDT Pulse 76 05/28/2017 10:27 AM EDT Temperature 36.5 ??C (97.7 ??F) 05/28/2017 10:27 AM EDT Respiratory Rate - - Oxygen Saturation - - Inhaled Oxygen Concentration - - Weight 63 kg (138 lb 14.4 oz) 05/28/2017 10:27 AM EDT Height 172.7 cm (5' 8) 05/28/2017 10:27 AM EDT Body Mass Index 21.12 05/28/2017 10:27 AM EDT in this encounter Progress Notes Tayler Taylor RN - 05/28/2017 10:58 AM EDTCalled and notified Crist[facility]bal at [facility] homecare pharmacy that pt will be starting continuous 5FU again on 06/12. Pt will be seen by Dr Valles on 06/11 and we will fax new orders to them then.Sherif Valles MD - 05/28/2017 10:34 AM EDTFormatting of this note may be different from the original. [facility] [address] [facility] [address] Hematology and Oncology Progress Note Patient Name: Elbert Canales MR #: [id number] : TYREL@ [facility] #: [id number] Date of Service: 05/28/17 Clinician: Sherif Valles MD Diagnosis: Pancreatic cancer, stage IB (T2N0M0), head and uncinate process, 2.1 cm, Dx-10/31/2016. Treatment: He is status post neoadjuvant chemotherapy with gemcitabine plus Abraxane from 11/16/2016 to 12/07/2016, 1 cycle. Status post Whipple procedure by Dr. Guillen on 01/24/2017. -Started weekly 5FU on 05/01. Chief Complaint: Follow up, pancreatic cancer History [...] in 3 years. Follow up with Dr. lAlison on 08/18 patient still had persistent dullabdominal [...] Colonic diverticulosis without evidence of diverticulitis. 7. Qivz-yd-dttbiheh constipation. 8. Moderate prostatomegaly. MRI Abdomen on [...] on 10/31/2016, by Dr. Partha Muñoz at [place] which showed a mass in thepancreatic head [...] consistent with adenocarcinoma. He was admitted at [facility] on 12/09/2016, with 1 day of increased [...] discharged yesterday. He was again discharged from [facility] on 12/18/2016. He was admitted on 12/15 [...] status post Whipple. Advanced emphysema was noted. Labs on 05/26, showed CA19-9 improved from 151 to 121, CMP profile is stable, CBC showed normal WBC,hemoglobin 13.1 and platelets 275. He is here for followup evaluation. He is feeling much better today, but he still wants to take 1 extra week of a break from the chemo. He states that the first week he did fine, but the second week,he started having more diarrhea and mucositis, and the third week, he felt sick the whole week. Hisweight is lower. His appetite is very good. He denies any fevers, chills, nausea, vomiting or abdominal pain. His diarrhea is pretty stable. Assessment/Plan: Pancreatic cancer (adenocarcinoma), involving pancreatic head [...] and tumor extension at extrapancreatic soft tissue. CA-19-9 level was rising and fortunately CT scan did not show any evidence of recurrence or residualmalignancy. He was started infusional 5FU on Sunday 04/30 per RTOG trial 97-04, data published in [facility] on May 01, 2007. According to this, chemotherapy prior to chemoradiation with continuous 5-FU 250 mg per sq mper day for 3 weeks then between 1-2 weeks after completion of chemotherapy, chemoradiation was initiated with 50.4 Gy of radiation with continuous infusion of 250 mg per sq m 5-FU daily throughout theradiation therapy, and another phase of chemotherapy was initiated 3-5 weeks after completion of chemoradiation therapy for 3 months. ?? He tolerated chemotherapy fairly well, but according to him, second week, he had some diarrhea and evidence of mucositis and third week, he felt sick, and he would like to take another extra week of break from the chemo. He will see Dr. Rivera this week, and we will plan to start next round of chemoradiation from June 12 as per his request, but we will further decrease the chemotherapy dose by 20% with radiation. We will give him 2 weeks of break and will plan to start him with chemo and radiation from 06/12 Again, I reviewed the chemotherapy schedule with [...] sitting. ?? Will have him return in 2 week with repeat CBC diff, CMP. ?? Patient and ??verbalize understanding and all questions addressed to best of my ability at this time. Encouraged to call with any other questions or concerns. ?? Review of Systems: 12 point review of [...] normal mood and affect. Vital Signs: BP 131/69 (BP Location: Left arm) Pulse 76 Temp 97.7 ??F (36.5 ??C) (Temporal) Ht Wt 63 kg (138 lb 14.4 oz) BMI 21.12 kg/m?? Last Height and Weight with BMI: 63 kg (138 lb 14.4 oz) Body mass index is 21.12 kg/m??. PMH/PSH/FH/SH: Past Medical History: Diagnosis Date ??? Arthritis ??? BPH (benign prostatic hyperplasia) ??? Cancer (HCC) skin cancer ??? Cataract ??? Chemotherapy adverse reaction 12/01/2016 has had 2 treatments-- getting port now. Had adverse reaction to zofran after first treatment ??? Chronic diarrhea current problem (07/21/16), stool specimen positive for blood ([facility]) per pt ??? Colon polyps 2010 [...] MD; Location: [facility] Endo; Service: ??? INSERTION SUBCUTANEOUS PORT N/A 12/04/2016 Procedure: PORT PLACEMENT ; Surgeon: Kota Vences MD; Location: [facility] Main OR; Service: ??? PROSTATE BIOPSY ??? SINUS SURGERY 2003 ??? WHIPPLE PROCEDURE N/A 01/24/2017 Procedure: WHIPPLE PROCEDURE; Surgeon: Inder Guillen MD; Location: [facility] Main OR; Service: Family History Problem Relation [...] Inhale 2.5 L/min nightly. Historical Provider, pancrelipase, Uba-Bybw-Veqj, (CREON) 12,000-38,000 -60,000 unit CpDR capsule Take 1 (one) capsule (12,000 units of lipase total) by mouth 3 (three) times a day with meals. 08/07/16 08/07/17 Jus Allison MD LABS: Pertinent latest labs reviewed in EMR and discussed with patient. WBC Date Value Ref Range Status 05/25/2017 8.41 4.50 - 11.00 K/mcL Final 07/07/2014 5.35 4.50 - 11.00 K/MCL RBC Date Value Ref Range Status 05/25/2017 4.33 (L) 4.50 - 5.90 M/mcL Final 07/07/2014 4.73 4.50 - 5.90 M/MCL Hemoglobin Date Value Ref Range Status 05/25/2017 13.1 (L) 13.5 - 17.5 g/dL Final 07/07/2014 15.3 13.5 - 17.5 G/DL Hematocrit Date Value Ref Range Status 05/25/2017 38.5 (L) 41.0 - 53.0 % Final 07/07/2014 45.2 41.0 - 53.0 % MCV Date Value Ref Range Status 05/25/2017 88.9 80.0 - 100.0 fL Final 07/07/2014 95.6 80.0 - 100.0 FL MCH Date Value Ref Range Status 05/25/2017 30.3 26.0 - 34.0 pg Final 07/07/2014 32.3 26.0 - 34.0 PG MCHC Date Value Ref Range Status 05/25/2017 34.0 31.0 - 37.0 g/dL Final Platelets Date Value Ref Range Status 05/25/2017 275 150 - 400 K/mcL Final RDW Date Value Ref Range Status 07/07/2014 12.5 11.6 - 14.8 % RDW - CV Date Value Ref Range Status 05/25/2017 15.2 (H) 11.6 - 14.8 % Final Sodium Date Value Ref Range Status 05/25/2017 134 (L) 135 - 145 mmol/L Final 07/07/2014 136 135 - 145 MMOL/L Potassium Date Value Ref Range Status 05/25/2017 3.9 3.5 - 5.1 mmol/L Final 07/07/2014 4.4 3.5 - 5.1 MMOL/L Chloride Date Value Ref Range Status 05/25/2017 95 (L) 98 - 108 mmol/L Final 07/07/2014 98 98 - 108 MMOL/L Bicarbonate Date Value Ref Range Status 05/25/2017 28 21 - 32 mmol/L Final 07/07/2014 28 21 - 32 MMOL/L Anion Gap Date Value Ref Range Status 05/25/2017 15 10 - 20 mmol/L Final Glucose Date Value Ref Range Status 05/25/2017 140 (H) 65 - 99 mg/dL Final 07/07/2014 94 65 - 99 MG/DL BUN Date Value Ref Range Status 05/25/2017 7 (L) 8 - 25 mg/dL Final 07/07/2014 12 8 - 25 MG/DL Creatinine Date Value Ref Range Status 05/25/2017 0.70 (L) 0.80 - 1.30 mg/dL Final 10/05/2016 0.7 (L) 0.8 - 1.3 mg/dL Final Serum Creatinine Date Value Ref Range Status 01/11/2012 0.9 0.8 - 1.3 MG/DL eGFR Date Value Ref Range Status 05/25/2017 92 >=60 mL/min/1.73 m2 Final GFR, Non Date Value Ref Range Status 01/11/2012 >60 >60 Comment: Test Units:mL/min/1.73m2 This Calculation is for Non Patients BUN/Creatinine Ratio Date Value Ref Range Status 05/25/2017 10.0 10.0 - 20.0 Final BUN/Creat Ratio Date Value Ref Range Status 07/07/2014 15.0 10.0 - 20.0 Comment: The above 18 analytes were performed by [address],[place] [address] Ordered on: 07/07/2014, EMMA ALLISON Tests Performed at: [facility] (Unless Otherwise Specified) [address] [place] [address], [address] - [facility] #[id number] [facility] - Order ID:[id number] Sample ID:[id number] Total Protein Date Value Ref Range Status 05/25/2017 6.7 6.0 - 8.0 g/dL Final Albumin Date Value Ref Range Status 05/25/2017 3.3 3.2 - 5.2 g/dL Final Calcium Date Value Ref Range Status 05/25/2017 8.9 8.4 - 10.2 mg/dL Final 07/07/2014 10.0 8.4 - 10.2 MG/DL Alkaline Phosphatase Date Value Ref Range Status 05/25/2017 83 40 - 150 U/L Final AST Date Value Ref Range Status 05/25/2017 15 0 - 45 U/L Final ALT Date Value Ref Range Status 05/25/2017 10 0 - 40 U/L Final Total Bilirubin Date Value Ref Range Status 05/25/2017 0.4 0.0 - 1.3 mg/dL Final Diagnostic Tests: Pertinent available radiologic studies were reviewed. Follow Up: Return in about 2 weeks (around 06/12/2017) for Office Visit, Infusion - See Treatment Plan, Labs - See Treatment Plan. Orders Placed This Encounter Procedures ??? Ambulatory referral to Radiation Oncology Standing Status: Future Standing Expiration Date: 05/28/2018 Referral Priority: Routine Referral Type: Evaluate and Treat Number of Visits Requested: 1 ? Sherif Valles MD [facility] [address] [facility], [address] [place] [address] [phone] CC: MD Inder Fink MD Andrew Freeman, MD in this encounter Plan of Treatment Upcoming Encounters Date Type Specialty Care Team Description 05/29/2017 Office Visit Home Health Services Betty Gates RN 06/05/2017 Office Visit Home Health Services Betty Gates RN 06/11/2017 Nurse Only Infusion Therapy 06/11/2017 Office Visit Oncology Sherif Valles MD [address] [place] [address] [address] [place] [address] [phone] 06/12/2017 Office Visit Home Health Services Betty Gates RN 06/19/2017 Office Visit Home Health Services Betty Gates RN 06/26/2017 Office Visit Home Health Services Betty Gates RN Scheduled Referrals Name Priority Associated Diagnoses Order Schedule Ambulatory referral to Routine Malignant neoplasm of 1 Occurrences starting Radiation Oncology pancreas, unspecified 05/28/2017 until location of malignancy 05/28/2018 (HCC) Health Maintenance Due Date Last Done Comments TETANUS EVERY 10 YR 1940 ZOSTER VACCINE 2001 PNEUMOCOCCAL VACCINE AGE 65+ (1 of 2006 2 - PCV13) SEQUENTIAL INFLUENZA VACCINE (#1) 2016 Low-dose CT Lung Cancer Screen 04/24/2018 04/24/2017, 02/22/2017, 01/03/2017, Additional history exists COLONOSCOPY 07/27/2021 07/27/2016, 01/12/2010 as of this encounter Implants Implanted Type Area Ecological Modeler Device Expiration Model / Identifier Date Serial / Lot Port Implanted Mri Isp W/8fr Cath Powerport - [id number] Catheter - Right: BARD PERIP 12/26/2017 [id number] / Implanted: Qty: 1 on 12/04/2016 by Kota Vences MD Implant Subclavian / [id number] Cath 90cm Peritoneal Open End W/Wall Slits - [id number] Catheter - N/A: Abdomen MEDTRO SHAGGY [id number] / Implanted: Qty: 1 on 01/24/2017 by Inder Guillen MD Implant / Sealant 10ml Floseal Matrix Hemostatic W/Ndl-Free Adapter - [id number] N/A: Abdomen TOBAR BIO 03/20/2018 [id number] / Implanted: Qty: 2 on 01/24/2017 by Inder Guillen MD / [id number] as of this encounter Visit Diagnoses Diagnosis Malignant neoplasm of pancreas, unspecified location of malignancy (HCC) - Primary Insurance Payer Benefit Plan / Group Subscriber ID Type Phone Address [employer] MANAGED MEDICARE [employer] MCR GOLD PLUS O xxxxxxxxx HCAP/JESSICA 80% JESSICA xxxxxxxxx as of this encounter
--- OUTSIDE RECORDS SUMMARY | 2018-05-19 09:11 | XMS RPT_ITS | Summary of Care ---
:1940 Author Organization [facility] Address [address] [id number] Care Team Providers Name Role Phone Jus Allison MD Primary Care Provider Sherif Valles MD Unavailable Varsha Pineda CNP Unavailable Fran Burris MD Unavailable Inder Guillen MD Unavailable Estefany Gaxiola RN Unavailable Unavailable Encounter Details Date Type Department Care Team Description 05/25/2017 Nurse Only [facility] Sherif Valles MD Encounter for antineoplastic chemotherapy (Primary Dx); Center Chemo [address] [facility] Malignant neoplasm of head of pancreas (HCC) Infusion Therapy [address] [place] [address] [place] [address] [phone] Allergies Active Allergy Reactions Severity Noted Date [...] (one) 90 capsule 11 03/02/2017 03/02/2018 Active Gzz-Dayk-Faem, (CREON) capsule (12,000 12,000-38,000 -60,000 units of [...] Vital Sign Reading Time Taken Blood Pressure 126/83 05/25/2017 10:32 AM EDT Pulse 84 05/25/2017 10:32 AM EDT Temperature 36.4 ??C (97.6 ??F) 05/25/2017 10:32 AM EDT Respiratory Rate 18 05/25/2017 10:32 AM EDT Oxygen Saturation - - Inhaled Oxygen Concentration - - Weight - - Height - - Body Mass Index - - in this encounter Plan of Treatment Upcoming Encounters Date Type Specialty Care Team Description 05/28/2017 Office Visit Oncology Sherif Valles MD [address] [place] [address] [phone] 05/29/2017 Office Visit Home Health Services Betty Gates RN 06/05/2017 Office Visit Home Health Services Betty Gates, PAT 06/12/2017 Office Visit Home Health Services Betty Gates, PAT 06/19/2017 Office Visit Home Health Services Betty Gates RN 06/26/2017 Office Visit Home Health Services Betty Gates, PAT Pending Results Name Priority Associated Diagnoses Date/Time CA 19-9 Routine Malignant neoplasm of head of pancreas (HCC) 05/25/2017 10:36 AM EDT Health Maintenance Due Date Last Done Comments TETANUS EVERY 10 YR 1940 ZOSTER VACCINE 2001 PNEUMOCOCCAL VACCINE AGE 65+ (1 of 2006 2 - PCV13) SEQUENTIAL INFLUENZA VACCINE (#1) 2016 Low-dose CT Lung Cancer Screen 04/24/2018 04/24/2017, 02/22/2017, 01/03/2017, Additional history exists COLONOSCOPY 07/27/2021 07/27/2016, 01/12/2010 as of this encounter Implants Implanted Type Area Furniture Repair Technician Device Expiration Model / Identifier Date Serial / Lot Port Implanted Mri Isp W/8fr Cath Powerport - [id number] Catheter - Right: BARD PERIP 12/26/2017 [id number] / Implanted: Qty: 1 on 12/04/2016 by Kota Vences MD Implant Subclavian / [id number] Cath 90cm Peritoneal Open End W/Wall Slits - [id number] Catheter - N/A: Abdomen MEDTRO SHAGGY [id number] / Implanted: Qty: 1 on 01/24/2017 by Inder Guillen MD Implant / Sealant 10ml Floseal Matrix Hemostatic W/Ndl-Free Adapter - [id number] N/A: Abdomen TOBAR BIO 03/20/2018 [id number] / Implanted: Qty: 2 on 01/24/2017 by Inder Guillen MD / [id number] as of this encounter Results Comprehensive Metabolic Panel (05/25/2017 10:36 AM) Component Value Ref Range Sodium 134 (L) 135 - 145 mmol/L Potassium 3.9 3.5 - 5.1 mmol/L Chloride 95 (L) 98 - 108 mmol/L Bicarbonate 28 21 - 32 mmol/L Anion Gap 15 10 - 20 mmol/L Glucose 140 (H) 65 - 99 mg/dL BUN 7 (L) 8 - 25 mg/dL Creatinine 0.70 (L) 0.80 - 1.30 mg/dL eGFR 92 >=60 mL/min/1.73 m2 BUN/Creatinine Ratio 10.0 10.0 - 20.0 Total Protein 6.7 6.0 - 8.0 g/dL Albumin 3.3 3.2 - 5.2 g/dL Calcium 8.9 8.4 - 10.2 mg/dL Alkaline Phosphatase 83 40 - 150 U/L AST 15 0 - 45 U/L ALT 10 0 - 40 U/L Total Bilirubin 0.4 0.0 - 1.3 mg/dL Specimen Performing Laboratory Blood [facility] [address] [place] [address] Narrative The eGFR should be used for monitoring renal function only and not for medication dosing. CBC Auto Differential (05/25/2017 10:36 AM) Component Value Ref Range WBC 8.41 4.50 - 11.00 K/mcL RBC 4.33 (L) 4.50 - 5.90 M/mcL Hemoglobin 13.1 (L) 13.5 - 17.5 g/dL Hematocrit 38.5 (L) 41.0 - 53.0 % MCV 88.9 80.0 - 100.0 fL MCH 30.3 26.0 - 34.0 pg MCHC 34.0 31.0 - 37.0 g/dL Platelets 275 150 - 400 K/mcL RDW - CV 15.2 (H) 11.6 - 14.8 % MPV 9.0 9.0 - 15.5 fL Neutrophils 68.0 % Lymphocytes 22.0 % Monocytes 7.6 % Eosinophils 1.9 % Basophils 0.5 % Neutrophils Abs 5.72 1.70 - 7.00 K/mcL Lymphocytes Abs 1.85 0.90 - 4.00 K/mcL Monocytes Abs 0.64 0.30 - 0.90 K/mcL Eosinophils Abs 0.16 0.00 - 0.50 K/mcL Basophils Abs 0.04 0.00 - 0.30 K/mcL Nucleated RBC 0.0 % Nucleated RBC Abs 0.00 0.00 - 0.00 K/mcL Specimen Performing Laboratory Blood [facility] [address] [place] [address] CBC and Differential (05/25/2017 10:36 AM) Specimen Performing Laboratory Blood Narrative The following orders were created for panel order CBC and Differential. Procedure? Abnormality? Status? ---------? ------? CBC Auto Differential[[id number]]?Abnormal?Final result? Please view results for these tests on the individual orders. in this encounter Visit Diagnoses Diagnosis Encounter for antineoplastic chemotherapy - Primary Malignant neoplasm of head of pancreas (HCC) Malignant neoplasm of head of pancreas Administered Medications Inactive Administered Medications - up to 3 most recent administrations Medication Order MAR Action Action Date Dose Rate Site heparin, porcine (PF) injection Given 05/25/2017 10:38 EDT 500 Units 500 Units 500 Units, Intravenous, As needed, For port needle removal and monthly., Starting 05/25/17 at 1032, For ports, flush with 10 mL 0.9% NaCl IV and 5 mL Heparin (100 units/mL) prior to needle removal and every month when not in use. sodium chloride (PF) (NS) flush 10 mL Given 05/25/2017 10:36 EDT 10 mL 10 mL, Intravenous, As needed, For port needle removal and monthly., Starting 05/25/17 at 1032, For ports, flush with 10 mL 0.9% NaCl IV and 5 mL Heparin (100 units/mL) prior to needle removal and every month when not in use. sodium chloride (PF) (NS) flush 20 mL Given 05/25/2017 10:36 EDT 20 mL 20 mL, Intravenous, As needed, line care, Starting 05/25/17 at 1032, For Central Lines. Flush after TPN, blood products, and blood draws. in this encounter Insurance Payer Benefit Plan / Group Subscriber ID Type Phone Address [employer] MANAGED MEDICARE HU[employer]NA MCR GOLD PLUS O xxxxxxxxx HCAP/JESSICA 80% JESSICA xxxxxxxxx [phone] [place] [address] as of this encounter
--- OUTSIDE RECORDS SUMMARY | 2018-05-19 09:11 | XMS RPT_ITS | Summary of Care ---
:1940 Author Organization [facility] Address [address] [id number] Care Team Providers Name Role Phone Jus Allison MD Primary Care Provider Sherif Valles MD Unavailable Varsha Pineda CNP Unavailable Fran Burris MD Unavailable Inder Guillen MD Unavailable Estefany Gaxiola RN Unavailable Unavailable Reason for Referral Diagnostic Colonoscopy (Routine) Status Reason Specialty Diagnoses / Referred By Referred To Procedures Contact Contact Closed Specialty General Surgery Diagnoses Occult blood in stools Fatuma Allison, Fran Mcintyre MD Required/Patient MD [facility] [place], [place] [phone] Phone: Fax: Reason for Visit Reason Comments port acess ct scan blood draw cbc with diff cmp Encounter Details Date Type Department Care Team Description 06/04/2017 Nurse Only [facility] Sherif Valles MD Occult blood in stools (Primary Dx); Center Chemo [address] [facility] Malignant neoplasm of head of pancreas (HCC); Infusion Therapy Anand 180 Encounter for antineoplastic chemotherapy 801 [place] [address] [place] [address] [phone] Allergies Active Allergy Reactions Severity Noted Date [...] (one) 90 capsule 11 03/02/2017 03/02/2018 Active Wlu-Skhi-Mnmt, (CREON) capsule (12,000 12,000-38,000 -60,000 units of [...] Vital Sign Reading Time Taken Blood Pressure 181/84 06/04/2017 1:50 PM EDT Pulse 76 06/04/2017 1:50 PM EDT Temperature 36.6 ??C (97.8 ??F) 06/04/2017 1:50 PM EDT Respiratory Rate 18 06/04/2017 1:50 PM EDT Oxygen Saturation - - Inhaled Oxygen Concentration - - Weight - - Height - - Body Mass Index - - in this encounter Plan of Treatment Upcoming Encounters Date Type Specialty Care Team Description 06/05/2017 Office Visit Home Health Services Betty Gates RN 06/11/2017 Nurse Only Infusion Therapy Sherif Valles MD [address] [address] [phone] 06/11/2017 Office Visit Oncology Sherif Valles MD [address] [address] [phone] 06/12/2017 Office Visit Home Health Services Betty [...] of this encounter Implants Implanted Type Area Electrical Tryout Person Device Expiration Model / Identifier Date Serial / Lot Port Implanted Mri Isp W/8fr Cath Powerport - [id number] Catheter - Right: BARD PERIP 12/26/2017 [id number] / Implanted: Qty: 1 on 12/04/2016 by Kota Vences MD Implant Subclavian / [id number] Cath 90cm Peritoneal Open End W/Wall Slits - [id number] Catheter - N/A: Abdomen MEDTRO SHAGGY [id number] / Implanted: Qty: 1 on 01/24/2017 by Inder Guillen MD Implant / Sealant 10ml Floseal Matrix Hemostatic W/Ndl-Free Adapter - [id number] N/A: Abdomen TOBAR BIO 03/20/2018 [id number] / Implanted: Qty: 2 on 01/24/2017 by Inder Guillen MD / [id number] as of this encounter Results CBC Auto Differential (06/04/2017 1:57 PM) Component Value Ref Range WBC 6.95 4.50 - 11.00 K/mcL RBC 4.35 (L) 4.50 - 5.90 M/mcL Hemoglobin 13.3 (L) 13.5 - 17.5 g/dL Hematocrit 39.0 (L) 41.0 - 53.0 % MCV 89.7 80.0 - 100.0 fL MCH 30.6 26.0 - 34.0 pg MCHC 34.1 31.0 - 37.0 g/dL Platelets 245 150 - 400 K/mcL RDW - CV 15.7 (H) 11.6 - 14.8 % MPV 9.1 9.0 - 15.5 fL Neutrophils 51.9 % Lymphocytes 36.4 % Monocytes 7.5 % Eosinophils 3.5 % Basophils 0.7 % Neutrophils Abs 3.61 1.70 - 7.00 K/mcL Lymphocytes Abs 2.53 0.90 - 4.00 K/mcL Monocytes Abs 0.52 0.30 - 0.90 K/mcL Eosinophils Abs 0.24 0.00 - 0.50 K/mcL Basophils Abs 0.05 0.00 - 0.30 K/mcL Nucleated RBC 0.0 % Nucleated RBC Abs 0.00 0.00 - 0.00 K/mcL Specimen Performing Laboratory Blood [facility] [address] [place] [address] Comprehensive Metabolic Panel (06/04/2017 1:57 PM) Component Value Ref Range Sodium 133 (L) 135 - 145 mmol/L Potassium 4.3 3.5 - 5.1 mmol/L Chloride 95 (L) 98 - 108 mmol/L Bicarbonate 26 21 - 32 mmol/L Anion Gap 16 10 - 20 mmol/L Glucose 105 (H) 65 - 99 mg/dL BUN 10 8 - 25 mg/dL Creatinine 0.70 (L) 0.80 - 1.30 mg/dL eGFR 92 >=60 mL/min/1.73 m2 BUN/Creatinine Ratio 14.3 10.0 - 20.0 Total Protein 6.9 6.0 - 8.0 g/dL Albumin 3.8 3.2 - 5.2 g/dL Calcium 9.1 8.4 - 10.2 mg/dL Alkaline Phosphatase 87 40 - 150 U/L AST 18 0 - 45 U/L ALT 9 0 - 40 U/L Total Bilirubin 0.5 0.0 - 1.3 mg/dL Specimen Performing Laboratory Blood [facility] [address] [place] [address] Narrative The eGFR should be used for monitoring renal function only and not for medication dosing. CBC and Differential (06/04/2017 1:57 PM) Specimen Performing Laboratory Blood Narrative The following orders were created for panel order CBC and Differential. Procedure? Abnormality? Status? ---------? ------? CBC Auto Differential[[id number]]?Abnormal?Final result? Please view results for these tests on the individual orders. in this encounter Visit Diagnoses Diagnosis Occult blood in stools - Primary Nonspecific abnormal finding in stool contents Malignant neoplasm of head of pancreas (HCC) Malignant neoplasm of head of pancreas Encounter for antineoplastic chemotherapy Administered Medications Inactive Administered Medications - up to 3 most recent administrations Medication Order MAR Action Action Date Dose Rate Site heparin, porcine (PF) injection 500 Given 06/04/2017 15:16 EDT 500 Units Units 500 Units, Intravenous, As needed, For port needle removal and monthly., Starting 06/04/17 at 1354, For ports, flush with 10 mL 0.9% NaCl IV and 5 mL Heparin (100 units/mL) prior to needle removal and every month when not in use. sodium chloride (PF) (NS) flush 10 mL Given 06/04/2017 13:56 EDT 10 mL 10 mL, Intravenous, As needed, For port needle removal and monthly., Starting 06/04/17 at 1354, For ports, flush with 10 mL 0.9% NaCl IV and 5 mL Heparin (100 units/mL) prior to needle removal and every month when not in use. sodium chloride (PF) (NS) flush 20 mL Given 06/04/2017 13:57 EDT 20 mL 20 mL, Intravenous, As needed, line care, Starting 06/04/17 at 1354, For Central Lines. Flush after TPN, blood products, and blood draws. Given 06/04/2017 15:16 EDT 20 mL in this encounter Insurance Payer Benefit Plan / Group Subscriber ID Type Phone Address [employer] MANAGED MEDICARE HUMANA MCR GOLD PLUS O xxxxxxxxx HCAP/JESSICA 80% JESSICA xxxxxxxxx as of this encounter
--- OUTSIDE RECORDS SUMMARY | 2018-05-19 09:11 | XMS RPT_ITS | Summary of Care ---
:1940 Author Organization [facility] Address [address] [id number] Care Team Providers Name Role Phone Jus Allison MD Primary Care Provider Sherif Valles MD Unavailable Varsha Pineda CNP Unavailable Fran Burris MD Unavailable Inder Guillen MD Unavailable Estefany Gaxiola RN Unavailable Unavailable Reason for Visit Reason Comments Pancreatic Cancer Encounter Details Date Type Department Care Team Description 05/07/2017 Office Visit [facility] Sherif Valles MD [address] [address] Malignant neoplasm of Center Oncology Varsha Pineda CNP [address] [address] head of pancreas Clinic (HCC) (Primary Dx) 801 [place], [place] [id number] Allergies Active Allergy Reactions Severity Noted Date Comments Ciprofloxacin Hives 12/01/2014 Hives in the 80s Gemcitabine 02/09/2017 Penicillin Hives 12/01/2014 Hives in the 80s Tetracycline 12/01/2014 Ondansetron Hcl Hives 11/30/2016 Itching, hives, shortness of breath, sweating as of this encounter Medications Prescription Sig. Disp. Refills Start Date End Date Status mometasone-formote Inhale 2 puffs 2 01/11/2012 Active rol (DULERA) 200-5 (two) times a mcg/actuation HFAA day. oxygen Inhale 2.5 L/min Active nightly. omeprazole Take 1 (one) 30 capsule 11 08/18/2016 Active (PRILOSEC) 40 MG capsule (40 mg 8 capsuleIndications total) by mouth : Generalized daily. abdominal pain pancrelipase, Take 1 (one) 90 capsule 11 03/02/2017 Active Sbt-Lpxh-Iryw, capsule (12,000 9 (CREON) units of lipase 12,000-38,000 total) by mouth -60,000 unit CpDR 3 (three) times capsule a day with meals. loperamide Take 2 mg by 05/01/2017 Active (IMODIUM) 2 mg mouth as needed capsule for diarrhea. sodium chloride, Infuse 10 mL 05/01/2017 Active PF, (NORMAL SALINE into a venous FLUSH) injection catheter as needed (Infusaport flush before and after chemo administration). heparin Infuse 5 mL into 05/01/2017 Active flush,porcine,-0.9 a venous NaCl 100 unit/mL catheter as Kit needed (Ifusaport flush post chemo administration). fluorouracil Infuse 2,804 1 each 0 05/07/2017 Active (5-FU) chemo home (two thousand infusionIndication eight hundred s: Malignant four) mg into a neoplasm of head venous catheter of pancreas (HCC) over 168 hr via ambulatory infusion pump.. fluorouracil Infuse 2,804 1 each 0 04/26/2017 Discontinued (5-FU) chemo home (two thousand 8 infusionIndication eight hundred s: Malignant four) mg into a neoplasm of head venous catheter of pancreas (HCC) over 168 hr via ambulatory infusion [...] Vital Sign Reading Time Taken Blood Pressure 154/83 05/07/2017 9:58 AM EDT Pulse 82 05/07/2017 9:58 AM EDT Temperature 36.9 ??C (98.5 ??F) 05/07/2017 9:58 AM EDT Respiratory Rate - - Oxygen Saturation - - Inhaled Oxygen Concentration - - Weight 64.8 kg (142 lb 12.8 oz) 05/07/2017 9:58 AM EDT Height 172.7 cm (5' 8) 05/07/2017 9:58 AM EDT Body Mass Index 21.71 05/07/2017 9:58 AM EDT in this encounter Progress Notes Varsha Pineda CNP - 05/07/2017 9:25 AM EDTFormatting of this note may be different from the original. [facility] [address] [place] [id number] Hematology and Oncology Progress Note Patient Name: Elbert Canales MR #: [id number] : TYREL@ [facility] #: [id number] Date of Service: 05/07/17 Clinician: Varsha Pineda CNP Diagnosis: Pancreatic cancer, stage IB (T2N0M0), head and uncinate process, 2.1 cm, Dx-10/31/2016. Treatment: -He is status post neoadjuvant chemotherapy with gemcitabine plus Abraxane from 11/16/2016 to 12/07/2016, 1 cycle. -Status post Whipple procedure by Dr. Guillen on 01/24/2017. -Started weekly 5FU on 05/01. Chief Complaint: Follow up, pancreatic cancer, diarrhea. History of Presenting Illness: Mr Elbert Canales [...] Colonic diverticulosis without evidence of diverticulitis. 7. Slzt-pi-yvvkwrtg constipation. 8. Moderate prostatomegaly. MRI Abdomen on [...] on 10/31/2016, by Dr. Partha Muñoz at [place] which showed a mass in thepancreatic head [...] consistent with adenocarcinoma. He was admitted at [place] on 12/09/2016, with 1 day of increased [...] discharged yesterday. He was again discharged from [place] on 12/18/2016. He was admitted on 12/15 [...] present. Pathology staging was 2b (T3 N1). CT of chest, abdomen, and pelvis with [...] status post Whipple. Advanced emphysema was noted. Interval History: He is here for followup. Started the infusional 5-FU treatment on 04/30/17. Starting week 2. He is doing very well. Started having loose stools starting yesterday. Had loose BM this morning. Takes Creon 1-2 times daily. He admits to not eating meals TID. He denies any fevers, chills, cough, shortness of breath, chest pain, abdominal pain, nausea, vomiting, diarrhea, or constipation, neuropathy,increased edema, bleeding or bruising out of the ordinary. Assessment/Plan: Pancreatic cancer (adenocarcinoma), involving pancreatic head [...] show any evidence of recurrence or residualmalignancy. Started infusional 5FU on Monday 05/01 per RTOG trial 97-04, data published in [...] completion of chemoradiation therapy for 3 months. Tomorrow he starts week 2. Ok to continue. Labs and vitals stable. Diarrhea. Increased since starting 5FU infusion pump. To increase Creon back to TID and take imodium 2 tablets with initial BM, then 1 tablet with each subsequent BM not to exceed 12 tablets in 24 hours. Edema bilateral lower extremities. Continue lasix prn and to elevate his legs while sitting. Will have him return in [address] Valles with repeat CBC diff, CMP. Patient and ??verbalize understanding and all questions addressed to best of my ability at this time. Encouraged to call with any other questions or concerns. ?? I have reviewed and discussed treatment plan with Dr. Valles. Review of Systems: A review of systems was performed and was negative except as described in the history of present illness and with the following additions: no fevers, night sweats, chest pain, nausea, vomiting, diarrhea, constipation, urinary sx, headache, acute visual changes. Physical Examination: General: alert, coherent, no acute distress. ECOG [...] Ventral hernia+ Extremity: no clubbing, no cyanosis. Bilateral LE edema+ Skin: RLE slight erythema Neuro: alert, oriented, no focal deficits, speech normal. Psych: Pt has a normal mood and affect. Vital Signs: BP (!) 154/83 (BP Location: Left arm) Pulse 82 Temp 98.5 ??F (36.9 ??C) (Temporal) Ht 5 8 Wt 64.8 kg (142 lb 12.8 oz) BMI 21.71 kg/m?? Last Height and Weight with BMI: 64.8 kg (142 lb 12.8 oz) 5 Body mass index is 21.71 kg/m??. PMH/PSH/FH/SH: Past Medical History: Diagnosis Date ??? Arthritis ??? BPH (benign prostatic hyperplasia) ??? Cancer (HCC) skin cancer ??? Cataract ??? Chemotherapy adverse reaction 12/01/2016 has had 2 treatments-- getting port now. Had adverse reaction to zofran after first treatment ??? Chronic diarrhea current problem (07/21/16), stool specimen positive for blood ([facility]) per pt ??? Colon polyps 2010 benign [...] [facility] Endo; Service: ??? INSERTION SUBCUTANEOUS PORT N/A 12/04/2016 Procedure: PORT PLACEMENT ; Surgeon: Kota Vences MD; Location: [facility] Main OR; Service: ??? PROSTATE BIOPSY ??? SINUS SURGERY 2003 ??? WHIPPLE PROCEDURE N/A 01/24/2017 Procedure: WHIPPLE PROCEDURE; Surgeon: Inder Guillen MD; Location: [facility] Main OR; Service: Family History Problem Relation [...] Inhale 2.5 L/min nightly. Historical Provider, pancrelipase, Iao-Pbew-Gult, (CREON) 12,000-38,000 -60,000 unit CpDR capsule Take 1 (one) capsule (12,000 units of lipase total) by mouth 3 (three) times a day with meals. 08/07/16 08/07/17 Jus Allison MD LABS: Pertinent latest labs reviewed in EMR and discussed with patient. WBC Date Value Ref Range Status 05/07/2017 7.02 4.50 - 11.00 K/mcL Final 07/07/2014 5.35 4.50 - 11.00 K/MCL RBC Date Value Ref Range Status 05/07/2017 4.57 4.50 - 5.90 M/mcL Final 07/07/2014 4.73 4.50 - 5.90 M/MCL Hemoglobin Date Value Ref Range Status 05/07/2017 13.6 13.5 - 17.5 g/dL Final 07/07/2014 15.3 13.5 - 17.5 G/DL Hematocrit Date Value Ref Range Status 05/07/2017 40.5 (L) 41.0 - 53.0 % Final 07/07/2014 45.2 41.0 - 53.0 % MCV Date Value Ref Range Status 05/07/2017 88.6 80.0 - 100.0 fL Final 07/07/2014 95.6 80.0 - 100.0 FL MCH Date Value Ref Range Status 05/07/2017 29.8 26.0 - 34.0 pg Final 07/07/2014 32.3 26.0 - 34.0 PG MCHC Date Value Ref Range Status 05/07/2017 33.6 31.0 - 37.0 g/dL Final Platelets Date Value Ref Range Status 05/07/2017 187 150 - 400 K/mcL Final RDW Date Value Ref Range Status 07/07/2014 12.5 11.6 - 14.8 % RDW - CV Date Value Ref Range Status 05/07/2017 14.2 11.6 - 14.8 % Final Sodium Date Value Ref Range Status 05/07/2017 135 135 - 145 mmol/L Final 07/07/2014 136 135 - 145 MMOL/L Potassium Date Value Ref Range Status 05/07/2017 4.4 3.5 - 5.1 mmol/L Final 07/07/2014 4.4 3.5 - 5.1 MMOL/L Chloride Date Value Ref Range Status 05/07/2017 97 (L) 98 - 108 mmol/L Final 07/07/2014 98 98 - 108 MMOL/L Bicarbonate Date Value Ref Range Status 05/07/2017 30 21 - 32 mmol/L Final 07/07/2014 28 21 - 32 MMOL/L Anion Gap Date Value Ref Range Status 05/07/2017 12 10 - 20 mmol/L Final Glucose Date Value Ref Range Status 05/07/2017 133 (H) 65 - 99 mg/dL Final 07/07/2014 94 65 - 99 MG/DL BUN Date Value Ref Range Status 05/07/2017 7 (L) 8 - 25 mg/dL Final 07/07/2014 12 8 - 25 MG/DL Creatinine Date Value Ref Range Status 05/07/2017 0.71 (L) 0.80 - 1.30 mg/dL Final 10/05/2016 0.7 (L) 0.8 - 1.3 mg/dL Final Serum Creatinine Date Value Ref Range Status 01/11/2012 0.9 0.8 - 1.3 MG/DL eGFR Date Value Ref Range Status 05/07/2017 92 >=60 mL/min/1.73 m2 Final GFR, Non Date Value Ref Range Status 01/11/2012 >60 >60 Comment: Test Units:mL/min/1.73m2 This Calculation is for Non Patients BUN/Creatinine Ratio Date Value Ref Range Status 05/07/2017 9.9 (L) 10.0 - 20.0 Final BUN/Creat Ratio Date Value Ref Range Status 07/07/2014 15.0 10.0 - 20.0 Comment: The above 18 analytes were performed by [address] [address] Ordered on: 07/07/2014, EMMA ALLISON Tests Performed at: [facility] Outpatient Services (Unless Otherwise Specified) [address] [place] [address], [address] - [facility] #[id number] [facility] - Order ID:[id number] Sample ID:[id number] Total Protein Date Value Ref Range Status 05/07/2017 6.4 6.0 - 8.0 g/dL Final Albumin Date Value Ref Range Status 05/07/2017 3.4 3.2 - 5.2 g/dL Final Calcium Date Value Ref Range Status 05/07/2017 9.0 8.4 - 10.2 mg/dL Final 07/07/2014 10.0 8.4 - 10.2 MG/DL Alkaline Phosphatase Date Value Ref Range Status 05/07/2017 86 40 - 150 U/L Final AST Date Value Ref Range Status 05/07/2017 14 0 - 45 U/L Final ALT Date Value Ref Range Status 05/07/2017 8 0 - 40 U/L Final Total Bilirubin Date Value Ref Range Status 05/07/2017 0.3 0.0 - 1.3 mg/dL Final Diagnostic Tests: Pertinent available radiologic studies were reviewed. Follow Up: Return in about 1 week (around 05/14/2017) for Office Visit, Labs - See Treatment Plan. Orders Placed This Encounter Procedures ??? CBC and Differential Standing Status: Standing Number of Occurrences: 10 Standing Expiration Date: 05/07/2018 ??? Comprehensive Metabolic Panel Standing Status: Standing Number of Occurrences: 10 Standing Expiration Date: 05/07/2018 ??? Nursing Communication 2 Confirm home infusion fluorouracil is available. Standing Status: Standing Number of Occurrences: 1 ??? Treatment Conditions Notify oncologist for Grade 2 or greater mucositis, grade 2 or greater skin reaction, or grade 2 or greater diarrhea. Standing Status: Standing Number of Occurrences: 1 ??? Treatment Conditions Do not proceed and notify oncologist or their designated SHAHID for Grade 2 or greater hand-foot syndrome. ? CC: MD Inder Fink MD Andrew Freeman, MD in this encounter Plan of Treatment Upcoming Encounters Date Type Specialty Care Team Description 05/22/2017 Office Visit Home Health Services 05/25/2017 Nurse Only Infusion Therapy 05/28/2017 Office Visit Oncology Sherif Valles MD [address] [place] [address] [address] [place] [address] [phone] 05/29/2017 Office Visit Home Health Services Betty Gates RN 06/05/2017 Office Visit Home Health Services Betty Gates RN 06/12/2017 Office Visit Home Health Services Betty Gates RN 06/19/2017 Office Visit Home Health Services Betty Gates RN 06/26/2017 Office Visit Home Health Services Betty Gates, PAT Scheduled Tests Name Priority Associated Diagnoses Order Schedule CBC and Differential Routine Malignant neoplasm of Prior Onc ASSET PROTECTION GREETER/MD visit for head of pancreas (HCC) 10 Occurrences starting 05/07/2017 until 05/07/2018, 1 completed Comprehensive Metabolic Routine Malignant neoplasm of Prior Onc ASSET PROTECTION GREETER/MD visit for Panel head of pancreas (HCC) 10 Occurrences starting 05/07/2017 until 05/07/2018, 1 completed Health Maintenance Due Date Last Done Comments TETANUS EVERY 10 YR 1940 ZOSTER VACCINE 2001 PNEUMOCOCCAL VACCINE AGE 65+ (1 of 2006 2 - PCV13) SEQUENTIAL INFLUENZA VACCINE (#1) 2016 Low-dose CT Lung Cancer Screen 04/24/2018 04/24/2017, 02/22/2017, 01/03/2017, Additional history exists COLONOSCOPY 07/27/2021 07/27/2016, 01/12/2010 as of this encounter Implants Implanted Type Area Contract Mail Carrier Device Expiration Model / Identifier Date Serial / Lot Port Implanted Mri Isp W/8fr Cath Powerport - [id number] Catheter - Right: BARD PERIP 12/26/2017 [id number] / Implanted: Qty: 1 on 12/04/2016 by Kota Vences MD Implant Subclavian / [id number] Cath 90cm Peritoneal Open End W/Wall Slits - [id number] Catheter - N/A: Abdomen MEDTRO SHAGGY [id number] / Implanted: Qty: 1 on 01/24/2017 by Inder Guillen MD Implant / Sealant 10ml Floseal Matrix Hemostatic W/Ndl-Free Adapter - [id number] N/A: Abdomen TOBAR BIO 03/20/2018 [id number] / Implanted: Qty: 2 on 01/24/2017 by Inder Guillen MD / [id number] as of this encounter Results Comprehensive Metabolic Panel (05/14/2017 11:08 AM) Component Value Ref Range Sodium 136 135 - 145 mmol/L Potassium 4.8 3.5 - 5.1 mmol/L Chloride 97 (L) 98 - 108 mmol/L Bicarbonate 30 21 - 32 mmol/L Anion Gap 14 10 - 20 mmol/L Glucose 131 (H) 65 - 99 mg/dL BUN 8 8 - 25 mg/dL Creatinine 0.71 (L) 0.80 - 1.30 mg/dL eGFR 92 >=60 mL/min/1.73 m2 BUN/Creatinine Ratio 11.3 10.0 - 20.0 Total Protein 6.2 6.0 - 8.0 g/dL Albumin 3.4 3.2 - 5.2 g/dL Calcium 8.9 8.4 - 10.2 mg/dL Alkaline Phosphatase 86 40 - 150 U/L AST 14 0 - 45 U/L ALT 8 0 - 40 U/L Total Bilirubin 0.4 0.0 - 1.3 mg/dL Specimen Performing Laboratory Blood [facility] [address] [place] [address] Narrative The eGFR should be used for monitoring renal function only and not for medication dosing. CBC and Differential (05/14/2017 11:08 AM) Specimen Performing Laboratory Blood Narrative The following orders were created for panel order CBC and Differential. Procedure? Abnormality? Status? ---------? ------? CBC Auto Differential[[id number]]?Abnormal?Final result? Please view results for these tests on the individual orders. CBC Auto Differential (05/07/2017 9:45 AM) Component Value Ref Range WBC 7.02 4.50 - 11.00 K/mcL RBC 4.57 4.50 - 5.90 M/mcL Hemoglobin 13.6 13.5 - 17.5 g/dL Hematocrit 40.5 (L) 41.0 - 53.0 % MCV 88.6 80.0 - 100.0 fL MCH 29.8 26.0 - 34.0 pg MCHC 33.6 31.0 - 37.0 g/dL Platelets 187 150 - 400 K/mcL RDW - CV 14.2 11.6 - 14.8 % MPV 9.9 9.0 - 15.5 fL Neutrophils 58.8 % Lymphocytes 28.1 % Monocytes 8.7 % Eosinophils 3.8 % Basophils 0.6 % Neutrophils Abs 4.13 1.70 - 7.00 K/mcL Lymphocytes Abs 1.97 0.90 - 4.00 K/mcL Monocytes Abs 0.61 0.30 - 0.90 K/mcL Eosinophils Abs 0.27 0.00 - 0.50 K/mcL Basophils Abs 0.04 0.00 - 0.30 K/mcL Nucleated RBC 0.0 % Nucleated RBC Abs 0.00 0.00 - 0.00 K/mcL Specimen Performing Laboratory Blood [facility] [address] [place] [address] Comprehensive Metabolic Panel (05/07/2017 9:45 AM) Component Value Ref Range Sodium 135 135 - 145 mmol/L Potassium 4.4 3.5 - 5.1 mmol/L Chloride 97 (L) 98 - 108 mmol/L Bicarbonate 30 21 - 32 mmol/L Anion Gap 12 10 - 20 mmol/L Glucose 133 (H) 65 - 99 mg/dL BUN 7 (L) 8 - 25 mg/dL Creatinine 0.71 (L) 0.80 - 1.30 mg/dL eGFR 92 >=60 mL/min/1.73 m2 BUN/Creatinine Ratio 9.9 (L) 10.0 - 20.0 Total Protein 6.4 6.0 - 8.0 g/dL Albumin 3.4 3.2 - 5.2 g/dL Calcium 9.0 8.4 - 10.2 mg/dL Alkaline Phosphatase 86 40 - 150 U/L AST 14 0 - 45 U/L ALT 8 0 - 40 U/L Total Bilirubin 0.3 0.0 - 1.3 mg/dL Specimen Performing Laboratory Blood [facility] [address] [place] [address] Narrative The eGFR should be used for monitoring renal function only and not for medication dosing. CBC and Differential (05/07/2017 9:45 AM) Specimen Performing Laboratory Blood Narrative The following orders were created for panel order CBC and Differential. Procedure? Abnormality? Status? ---------? ------? CBC Auto Differential[[id number]]?Abnormal?Final result? Please view results for these tests on the individual orders. in this encounter Visit Diagnoses Diagnosis Malignant neoplasm of head of pancreas (HCC) - Primary Malignant neoplasm of head of pancreas Insurance Payer Benefit Plan / Group Subscriber ID Type Phone Address [employer] MANAGED MEDICARE [employer] MCR GOLD PLUS HMO xxxxxxxxx HCAP/JESSICA 80% JESSICA xxxxxxxxx [phone] [place] [id number] as of this encounter
--- OUTSIDE RECORDS SUMMARY | 2018-05-19 09:11 | XMS RPT_ITS | Summary of Care ---
:1940 Author Organization [facility] Address [address] [id number] Care Team Providers Name Role Phone Jus Allison MD Primary Care Provider Sherif Valles MD Unavailable Varsha Pineda CNP Unavailable Fran Burris MD Unavailable Inder Guillen MD Unavailable Estefany Gaxiola RN Unavailable Unavailable Encounter Details Date Type Department Care Team Description 06/11/2017 Care Coordination Patient Navigator Minor SD Estefany Ly RN Allergies Active Allergy Reactions Severity Noted [...] pain pancrelipase, Take 1 (one) 90 capsule 03/02/2017 03/02/19 Active Lrz-Btzf-Idaz, capsule (12,000 19 (CREON) units of lipase [...] encounter Progress Notes Estefany Gaxiola RN - 06/11/2017 11:15 AM JULIAN met with Mr. Canales and his today in the clinic today. 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 He feels he tolerated the 5fu fairly well, he did have some fatigue, mouth sores, and malaise towards the end. He is maintaining his weight but not really gainingthough he is eating well. They deny any financial concerns at this point. No new distress issues or concerns. They have my contact information and will call if they have needs.in this encounter Plan of Treatment Upcoming Encounters Date Type Specialty Care Team Description 06/18/2017 Office Visit Oncology Sherif Valles MD [address] [place] [address] [phone] 06/18/2017 Radiation Oncology Radiation Oncology 06/19/2017 Office [...] of this encounter Implants Implanted Type Area Blade Boner Device Expiration Model / Identifier Date Serial / Lot Port Implanted Mri Isp W/8fr Cath Powerport - [id number] Catheter - Right: BARD PERIP 12/26/2017 [id number] / Implanted: Qty: 1 on 12/04/2016 by Kota Vences MD Implant Subclavian / [id number] Cath 90cm Peritoneal Open End W/Wall Slits - [id number] Catheter - N/A: Abdomen MEDTRO SHAGGY [id number] / Implanted: Qty: 1 on 01/24/2017 by Inder Guillen MD Implant / Sealant 10ml Floseal Matrix Hemostatic W/Ndl-Free Adapter - [id number] N/A: Abdomen TOBAR BIO 03/20/2018 [id number] / Implanted: Qty: 2 on 01/24/2017 by Inder Guillen MD / [id number] as of this encounter
--- OUTSIDE RECORDS SUMMARY | 2018-05-19 09:12 | XMS RPT_ITS ---
:1940 Author Organization OHIP Support Name Relationship Address Phone R Unavailable Unavailable Unavailable R Unavailable Unavailable Unavailable HANNAH ESPINOSA Unavailable [address] + [place] [address] FRANCISCA, HANNAH Unavailable [address] + [place] [address] FRANCISCA, HANNAH Unavailable [address] + [place] [address] FRANCISCA, HANNAH Unavailable [address] + [place] [address] FRANCISCA, HANNAH Unavailable [address] + [place] [address] FRANCISCA, HANNAH Unavailable [address] + [place] [address] FRANCISCA, HANNAH Unavailable [address] + [place] [address] FRANCISCA, HANNAH Unavailable [address] + [place] [address] FRANCISCA, HANNAH Unavailable [address] + [place] [address] FRANCISCA, HANNAH Unavailable [address] + [place] [address] FRANCISCA, HANNAH Unavailable [address] + [place] [address] FRANCISCA, HANNAH Unavailable [address] + [place] [address] FRANCISCA, HANNAH Unavailable [address] + [place] [address] FRANCISCA, HANNAH Unavailable [address] + [place] [address] FRANCISCA, HANNAH Unavailable [address] + [place] [address] FRANCISCA, HANNAH Unavailable [address] + [place] [address] FRANCISCA, HANNAH Unavailable [address] + [place] [address] FRANCISCA, HANNAH Unavailable [address] + [place] [address] FRANCISCA, HANNAH Unavailable [address] + [place] [address] FRANCISCA, HANNAH Unavailable [address] + [place] [address] FRANCISCA, HANNAH Unavailable [address] + [place] [address] FRANCISCA, HANNAH Unavailable [address] + [place] [address] FRANCISCA, HANNAH Unavailable [address] + [place] [address] FRANCISCA, HANNAH Unavailable [address] + [place] [address] FRANCISCA, HANNAH Unavailable [address] + [place] [address] FRANCISCA, HANNAH Unavailable [address] + [place] [address] FRANCISCA, HANNAH Unavailable [address] + [place] [address] FRANCISCA, HANNAH Unavailable [address] + [place] [address] FRANCISCA, HANNAH Unavailable [address] + [place] [address] FRANCISCA, HANANH Unavailable [address] + [place] [address] FRANCISCA, HANNAH Unavailable [address] + [place] [address] FRANCISCA, HANNAH Unavailable [address] + [place] [address] FRANCISCA, HANNAH Unavailable [address] + [place] [address] FRANCISCA, HANNAH Unavailable [address] + [place] [address] FRANCISCA, HANNAH Unavailable [address] + [place] [address] FRANCISCA, HANNAH Unavailable [address] + [place] [address] FRANCISCA, HANNAH Unavailable [address] + [place] [address] FRANCISCA, HANNAH Unavailable [address] + [place] [address] FRANCISCA, HANNAH Unavailable [address] + [place] [address] FRANCISCA, HANNAH Unavailable [address] + [place] [address] FRANCISCA, HANNAH Unavailable [address] + [place] [address] FRANCISCA, HANNAH Unavailable [address] + [place] [address] FRANCISCA, HANNAH Unavailable [address] + [place] [address] FRANCISCA, HANNAH Unavailable [address] + [place] [address] FRANCISCA, HANNAH Unavailable [address] + [place] [address] FRANCISCA, HANNAH Unavailable [address] + [place] [address] FRANCISCA, HANNAH Unavailable [address] + [place] [address] FRANCISCA, HANNAH Unavailable [address] + [place] [address] FRANCISCA, HANNAH Unavailable [address] + [place] [address] FRANCISCA, HANNAH Unavailable [address] + [place] [address] FRANCISCA, HANNAH Unavailable [address] + [place] [address] FRANCISCA, HANNAH Unavailable [address] + [place] [address] FRANCISCA, HANNAH Unavailable [address] + [place] [address] FRANCISCA, HANNAH Unavailable [address] + [place] [address] FRANCISCA, HANNAH Unavailable [address] + [place] [address] HANNAH ESPINOSA Unavailable [facility] + [place] [address] Care Team Providers Name Role Phone GWEN, LEANDRO Crespo Attending Unavailable MASCI, LEANDRO Crespo Referring Unavailable MASCI, LEANDRO Crespo Attending Unavailable MASCI, LEANRDO Crespo Referring Unavailable MASCI, LEANDRO Crespo Referring Unavailable MASCI, LEANDRO Crespo Referring Unavailable MAXAMANDA KAPLAN Attending Unavailable SCHINBANDAR, SAMINA DAVIES Referring Unavailable RIVERA, BALBINA MULLINS Attending Unavailable SCHINNER, SAMINA DAVIES Referring Unavailable RIVERA, BALBINA MULLINS Attending Unavailable SCHINNER, SAMINA DAVIES Referring Unavailable MASCI, LEANDRO Crespo Referring Unavailable MASCI, LEANDRO Crespo Referring Unavailable MASCI, LEANDRO Crespo Referring Unavailable MASCI, LEANDRO Crespo Referring Unavailable MASCI, LEANDRO Crespo Attending Unavailable MASCI, LEANDRO Crespo Referring Unavailable MASCI, LEANDRO Crespo Referring Unavailable CARMEN HOUSER Admitting Unavailable VOEGELE, SARAY WILL Referring Unavailable VOEGELE, SARAY WILL Primary Care Unavailable HOUSER, CARMEN Admitting Unavailable CARMEN HOUSER Attending Unavailable VOEGELE, SARAY WILL Referring Unavailable [facility] Primary Care Unavailable HOUSER, CARMEN Admitting Unavailable VOEGELE, SARAY WILL Referring Unavailable [facility] Primary Care Unavailable CARMEN HOUSER Attending Unavailable HOUSER, CARMEN Referring Unavailable VOEGELE, SARAY WILL Primary Care Unavailable ARI OQUENDO Admitting Unavailable HOUSER, CARMEN Referring Unavailable VOEGELE, SARAY WILL Primary Care Unavailable HOUSER, CARMEN Admitting Unavailable CARMEN HOUSER Attending Unavailable VOEGELE, SARAY WILL Referring Unavailable VOEGELE, SARAY WILL Primary Care Unavailable HOUSER, CARMEN Admitting Unavailable VOEGELE, SARAY WILL Referring Unavailable VOEGELE, SARAY WILL Primary Care Unavailable HOUSER, CARMEN Admitting Unavailable EVA WATERS Attending Unavailable VOEGELE, SARAY WILL Referring Unavailable VOEGELE, SARAY WILL Primary Care Unavailable CORRINA, CARMEN Admitting Unavailable CARMEN HOUSER Attending Unavailable VOEGELE, SARAY WILL Referring Unavailable VOEGELE, SARAY WILL Primary Care Unavailable HOUSER, CARMEN Admitting Unavailable VOEGELE, SARAY WILL Referring Unavailable VOEGELE, SARAY WILL Primary Care Unavailable HOUSER, CARMEN Admitting Unavailable CARMEN HOUSER Attending Unavailable VOEGELE, SARAY WILL Referring Unavailable VOEGELE, SARAY WILL Primary Care Unavailable ARI OQUENDO Admitting Unavailable HOUSER, CARMEN Referring Unavailable VOEGELE, SARAY WILL Primary Care Unavailable HOUSER, CARMEN Admitting Unavailable VOEGELE, SARAY WILL Referring Unavailable VOEGELE, SARAY WILL Primary Care Unavailable ARI OQUENDO Attending Unavailable ARI OQUENDO Referring Unavailable VOEGELE, SARAY WILL Primary Care Unavailable HOUSER, CARMEN Admitting Unavailable VOEGELE, SARAY WILL Referring Unavailable VOEGELE, SARAY WILL Primary Care Unavailable HOUSER, CARMEN Admitting Unavailable HOUSER, CARMEN Attending Unavailable VOEGELE, SARAY WILL Referring Unavailable VOEGELE, SARAY WILL Primary Care Unavailable HOUSER, CARMEN Admitting Unavailable HOUSER, CARMEN Attending Unavailable VOEGELE, SARAY WILL Referring Unavailable VOEGELE, SARAY WILL Primary Care Unavailable ARI OQUENDO Admitting Unavailable HOUSER, CARMEN Referring Unavailable VOEGELE, SARAY WILL Primary Care Unavailable HOUSER, CARMEN Admitting Unavailable HOUSER, CARMEN Attending Unavailable VOEGELE, SARAY WILL Referring Unavailable VOEGELE, SARAY WILL Primary Care Unavailable VOEGELE, SARAY WILL Primary Care Unavailable VOEGELE, SARAY WILL Primary Care Unavailable VOEGELE, SARAY WILL Primary Care Unavailable VOEGELE, SARAY WILL Primary Care Unavailable HOUSER, CARMEN Admitting Unavailable HOUSER, CARMEN Attending Unavailable VOEGELE, SARAY WILL Referring Unavailable VOEGELE, SARAY WILL Primary Care Unavailable [facility] Primary Care Unavailable VOEGELE, SARAY WILL Primary Care Unavailable [facility]LE, [facility] Primary Care Unavailable VOEGELE, SARAY WILL Primary Care Unavailable VOEGELE, SARAY WILL Primary Care Unavailable VOEGELE, SARAY WILL Primary Care Unavailable VOEGELE, SARAY WILL Primary Care Unavailable VOEGELE, SARAY WILL Primary Care Unavailable VOEGELE, SARAY WILL Primary Care Unavailable ARI OQUENDO Admitting Unavailable HOUSER, CARMEN Referring Unavailable VOEGELE, SARAY WILL Primary Care Unavailable VOEGELE, SARYA WILL Primary Care Unavailable VOEGELE, SARAY WILL Primary Care Unavailable VOEGELE, SARAY WILL Primary Care Unavailable VOEGELE, SARAY WILL Primary Care Unavailable VOEGELE, SARAY WILL Primary Care Unavailable VOEGELE, SARAY WILL Primary Care Unavailable VOEGELE, SARAY WILL Primary Care Unavailable VOEGELE, SARAY WILL Primary Care Unavailable VOEGELE, SARAY WILL Primary Care Unavailable LION, CHAOYANG Admitting Unavailable VOEGELE, SARAY WILL Referring Unavailable VOEGELE, SARAY WILL Primary Care Unavailable CARMEN HOUSER Attending Unavailable HOUSER, CARMEN Referring Unavailable VOEGELE, SARAY WILL Primary Care Unavailable VOEGELE, SARAY WILL Primary Care Unavailable LI, CHAOYANG Admitting Unavailable HOUSER, CARMEN Attending Unavailable VOEGELE, SARAY WILL Referring Unavailable VOEGELE, SARAY WILL Primary Care Unavailable ARI OQUENDO Admitting Unavailable ARI OQUENDO Attending Unavailable HOUSER, CARMEN Referring Unavailable VOEGELE, SARAY WILL Primary Care Unavailable VOEGELE, SARAY WILL Primary Care Unavailable HOUSER, CARMEN Admitting Unavailable HOUSER, CARMEN Attending Unavailable VOEGELE, SARAY WILL Referring Unavailable VOEGELE, SARAY WILL Primary Care Unavailable EVA WATERS Admitting Unavailable VOEGELE, SARAY WILL Primary Care Unavailable VOEGELE, SARAY WILL Primary Care Unavailable VOEGELE, SARAY WILL Primary Care Unavailable LICLIVEOYANG Admitting Unavailable VOEGELE, SARAY WILL Referring Unavailable VOEGELE, SARAY WILL Primary Care Unavailable KALLI FULTON Attending Unavailable VOEGELE, SARAY WILL Primary Care Unavailable HOUSER, CARMEN Referring Unavailable VOEGELE, SARAY WILL Primary Care Unavailable Samina Sanchez Attending Unavailable Samina Sanchez Primary Care Unavailable Samina Sanchez Attending Unavailable Samina Sanchez Primary Care Unavailable PROBLEMS PROBLEMS DATE TYPE CONDITION / CODE ATTENDING STATUS SOURCE Active Unknown / UNK(Unknown) Active [address] Main [place] Repository Unknown Z01.818 - Encounter Samina Sanchez Active [place] 8 for other [facility] preprocedural Hospital examination / Repository Z01.818(ICD-10) Active Malignant neoplasm of Active [place] [address] head of pancreas / Clinic Main C25.0(ICD-10) [place] Repository Admitting Anemia due to CARMEN HOUSER Active [place] [address] diagnosis antineoplastic Repository chemotherapy / D64.81(ICD-10) Admitting Adverse effect of CARMEN HOUSER Active [place] [address] diagnosis antineoplastic and Repository immunosuppressive drugs, initial encounter / T45.1X5A(ICD-10) Admitting Diarrhea, unspecified CARMNE HOUSER [facility] 8 diagnosis / R19.7(ICD-10) Repository Admitting Other fecal NA [facility] 8 diagnosis abnormalities / Repository R19.5(ICD-10) Admitting Malignant neoplasm of CARMEN HOUSER [facility] 8 diagnosis pancreas, unspecified Repository / C25.9(ICD-10) Admitting Malignant neoplasm of CARMEN HOUSER [facility] 7 diagnosis head of pancreas / Repository C25.0(ICD-10) Admitting Encounter for CARMEN HOUSER [facility] 7 diagnosis follow-up examination Repository after completed treatment for conditions other than malignant neoplasm / Z09(ICD-10) Admitting Encounter for CARMEN HOUSER [facility] 7 diagnosis antineoplastic Repository chemotherapy / Z51.11(ICD-10) Admitting Umbilical hernia [place] [address] diagnosis without obstruction or KALLI D. Three gangrene / Repository K42.9(ICD-10) PROCEDURES PROCEDURES No Procedure Records FoundRESULTS RESULTS CBC W/DIFF, AUTOMATED Collected: 03/14/2018 Status: F Source: [place] 2:05 PM [facility] REPOSITORY TYPE CODE TESTS RESULT OUT OF RANGE REFERENCE UNITS LAB L100.1000 4.4-11.0 K/mm3 Low WBC 4.2 LAB L100.1200 4.6-6.2 M/mm3 Low RBC 3.74 LAB L100.1300 13.0-16.5 g/dl Low HGB 12.5 LAB L100.1400 40-54 % Low HCT 36.3 LAB L100.1500 80-94 fL High MCV 97.1 LAB L100.1600 27.0-32.0 pg High MCH 33.4 LAB L100.1700 32-36 g/gl Normal MCHC 34.4 LAB L100.1810 11.6-14.6 % Normal RDW CV 12.5 LAB L100.1820 35.1-43.9 fl Normal RDW SD 42.8 LAB L100.1900 150-450 K/mm3 Normal PLT 156 LAB L100.2000 6.2-12.0 fl Normal MPV 10.0 LAB L100.2100 47-70 % Normal NEUT% 62.9 LAB L100.2200 19-41 % Normal LY% 25.2 LAB L100.2300 0-10 % Normal MONO% 7.4 LAB L100.2400 0-5 % Normal EO% 4.0 LAB L100.2500 0-1 % Normal BASO% 0.5 LAB L100.2550 0.0-0.9 % Normal IM GRAN % 0.000 Result Comment: IG% - Immature Granulocytes (promyelocytes, myelocytes and metamyelocytes) > 1% indicates that a LEFT SHIFT is Present. LAB L100.2620 2.0-7.7 X10 3/uL Normal Absolute Neut 2.7 LAB L100.2720 0.83-4.51 X10 3/ul Normal Absolute Lymph 1.06 Performed By: #### L100.0100 #### [facility] [address] [place], [address] URINALYSIS, COMPLETE Collected: 03/14/2018 Status: F Source: [place] 2:05 PM [facility] REPOSITORY Order Comment: How was Urine Obtained? CLEAN CATCH TYPE CODE TESTS RESULT OUT OF RANGE REFERENCE UNITS LAB L400.3000 Yellow COLOR Normal Yellow LAB L400.3050 Clear Normal CLARITY Sl. Cloudy LAB L400.3200 Normal mg/dl Normal GLUCOSE, UR Normal LAB L400.3300 Negative mg/dL Normal BILIRUBIN URINE Negative LAB L400.3400 Negative mg/dl Normal KETONE UR Negative LAB L400.3465 1.002-1.030 Normal SP.GR. DIPSTX 1.025 LAB L400.3550 5.0 - 8.0 pH UR Normal 6.0 LAB L400.3600 Negative mg/dl High PROT 15 DIPSTX LAB L400.3700 Normal mg/dl High 1 UROBILI LAB L400.3750 Negative High NITRITE UR Positive LAB L400.3780 Negative /ul Normal OCCULT BLOOD-UR Negative LAB L400.3800 Negative /ul LEUK Normal ESTERASE Negative LAB L400.4050 0-5 /hpf WBC Normal 0-5 SEEN LAB L400.4100 0-5 /hpf 0 Normal RBC-UA SEEN LAB L400.4150 0-5 /hpf SQUAM Normal EPI 0-5 SEEN LAB L400.4300 None Seen /hpf Normal BACTERIA RARE LAB L400.4350 <or=2+ /hpf 0 Normal MUCUS, URINE SEEN Performed By: #### L400.0001 #### [facility] [place], [address] COMPREHENSIVE METABOLIC Collected: 03/14/2018 Status: F Source: [place] 2:05 PM [facility] REPOSITORY TYPE CODE TESTS RESULT OUT OF RANGE REFERENCE UNITS LAB L501.0100 74-106 mg/dL High GLU 141 Result Comment: Fasting Glucose result greater than or equal to 126 mg/dL suggests DIABETES MELLITUS per A.D.A. criteria. Please note revised GLUCOSE reference range effective 2017. LAB L501.1000 7-18 mg/dL Normal BUN 13 LAB L501.1100 0.70-1.30 mg/dL Normal CREAT,SERUM 0.79 Result Comment: The validity of the calculated GFR AND GFRAA in patients over 70 years has not been determined. Clinical correlation is essential. LAB L501.1110 >60 mL/min Normal EST GFR 101 Result Comment: Non- GFR Calc LAB L501.1115 >60 mL/min Normal EST GFR - AA 123 Result Comment: GFR Calc LAB L501.1300 10-20 RATIO Normal BUN/CRE 16.5 LAB L501.1500 6.4-8.2 g/dL T Normal PROT 6.4 LAB L501.1800 3.2-5.0 g/dL Normal ALB 3.5 LAB L501.1950 2.2-4.2 g/dL Normal GLOB 2.9 LAB L501.2000 0.9-2.4 RATIO Normal A/G 1.2 LAB L501.2200 8.5-10.1 mg/dL CA Normal 8.5 LAB L501.4100 15-37 U/L Normal AST 19 LAB L501.4305 45-117 U/L Normal ALK P 98 LAB L501.4405 16-61 U/L Normal ALT 22 LAB L501.4600 0.20-1.00 mg/dL T Normal BILI 0.50 LAB L501.5300 136-145 mmol/L NA Normal 137 LAB L501.5600 3.5-5.1 mmol/L K Normal 4.6 LAB L501.5900 98-107 mmol/L CL Normal 99 LAB L501.6100 21.0-32.0 mmol/L Normal CO2 31.0 LAB L501.6200 5-15 Normal GAP 7 Performed By: #### L500.4050, L500.4100 #### [facility] [address] [place], [address] LIPID PROFILE Collected: 03/14/2018 Status: F Source: E[place] 2:05 PM [facility] REPOSITORY TYPE CODE TESTS RESULT OUT OF RANGE REFERENCE UNITS LAB L501.4900 200 mg/dL Normal CHOL 152 Result Comment: <200 mg/dL Desirable 200-240 mg/dL Borderline >240 mg/dL High Risk LAB L501.5000 mg/dL Normal TRIG 88 Result Comment: The drugs N-Acetylcysteine and Metamizole may falsely depress this assay. Serum Triglycerides Reference Interval Normal <150 mg/dL Borderline high 150 - 199 mg/dL High 200 - 499 mg/dL Very High > or = 500 mg/dL LAB L501.6400 mg/dL Normal HDL 58 Result Comment: The drugs N-Acetylcysteine and Metamizole may falsely depress this assay. Reference Range HDL <40 mg/dL Low HDL Cholesterol HDL >or= 60 mg/dL High HDL Cholesterol LAB L501.6500 0-130 mg/dL Normal LDL 76 LAB L501.6600 5-40 mg/dL Normal VLDL 18 Performed By: #### L500.4050, L500.4100 #### [facility] [address] [place], [address] HEMOGLOBIN A1C Collected: 03/14/2018 Status: F Source: E[place] 2:05 PM [facility] REPOSITORY TYPE CODE TESTS RESULT OUT OF RANGE REFERENCE UNITS LAB L501.9985 4.2-6.3 % Normal HGB A1C 6.0 Performed By: #### L501.9985 #### [facility] [address] [place], [address] PROGRESS Observed: 01/24/2018 Status: COMPLETED Source: [place] 10:04 AM [facility] [place] REPOSITORY HNO ID: [id number] Author: Leandro Joy Service: (none) Author Type: Physician Type: Progress Notes Filed: 01/24/2018 10:20 AM Note Text: Diagnosis: 1) pT2 pN2 M0 stage III adenocarcinoma of the pancreas HPI: The patient is a 77-year-old male who has a past medical history significant for COPD (Dulera and uses oxygen at night) and pancreas cancer. Per records from [facility]: Pancreatic cancer (adenocarcinoma), involving pancreatic head and uncinate process, 2.1 cm, stage 1B (T2-N0-M0), borderline resectable, with involvement of lateral wall of portal vein. Baseline CA19- 9 level elevated at 354. He was evaluated [...] completion of chemoradiation therapy for 3 months. ? He is s/p weekly 5FU from 05/08/17 [...] willing to take that risk. In view of his decision, I will plan to continue to observe him with repeat labs and CT scan in about 3 months. He and his voiced understanding. He was encouraged to call the clinic with any other questions or concern. Most recent evaluation in July 2017-- CT C/A/P 08/13/2017: 1.??Postoperative changes are again noted. 2.??No evidence of significant lymphadenopathy or other abnormal mass. 3.??Extensive pulmonary emphysema again noted. Patient describes the skin reaction to gemcitabine as cellulitis of the right and left LE with right worse than left. Also had intense itching up the back. Had rash and exacerbation with infusional 5FU. Previous OV: Good appetite. No nausea. Taking 1 Creon and 1 Imodium tablet every meal. Chronic diarrhea. Lower abdominal pain chronically--comes and goes. Mostly hurts in the morning then partially relieved with BM. Diarrhea was worse when tried 2 Creon tablets. Smoked about 1/2 ppd. Stays active--enjoyed yard work. Presents for ongoing oncologic management. Interim history: Still getting frequent loose stools with occasional diarrhea and gas. Avoiding grease and fried foods. Concerned about weight. Tried supplements in the past but seemed to make diarrhea worse. No abdominal pain or distention. PMH, medications and allergies personally reviewed by me today. Any changes documented in appropriate section. ROS: Constitutional: Denies episodes of fever and night sweats. Neuro: Denies MITCHELL, vertigo, dizziness and imbalance. Denies symptoms of neuropathy. HEENT: No recent change in voice, vision or hearing. Resp: See above. CVS: Denies exertional chest pain, PND, orthopnea and LE edema. GI: Denies dysgeusia. Denies symptoms of stomatitis. Denies dysphagia and odynophagia. : Denies dysuria or gross hematuria. No symptoms of bladder outlet obstruction. Endo: Denies hot flashes. Denies polyuria and polydipsia. Denies heat and cold intolerance. Musculoskeletal: Denies bone, back, joint and muscular pain. Derm: Denies rash. Denies jaundice and diffuse pruritis. Heme: Denies unusual bleeding and unexplained bruising. Psych: Normal mood. PHYSICAL EXAM: Vitals: Blood pressure 159/83, pulse 83, temperature 36.7 ?C (98 ?F), temperature source Oral, weight 55.1 kg (121 lb 8 oz), SpO2 97 %. Well-appearing and in no acute distress. EYES: Sclerae are anicteric bilaterally. ENT: Oral mucosa is unremarkable. There is no sign of thrush or mucositis. NECK: Supple. No enlargement of thyroid. LYMPHATIC: There is no palpable cervical, supraclavicular, axillary or inguinal adenopathy. RESPIRATORY: Inspiratory breath sounds are of very diminished intensity in all bullock. No rales, wheezes or rhonchi. CARDIOVASCULAR: Rhythm is regular. Normal intensity S1/S2. There is no gallop or murmur. ABDOMEN: The abdomen is nondistended. No organomegaly. Mild generalized tenderness. SKIN: No jaundice or rash. No petechiae. NEUROLOGIC: line ordering clinician II-XII are grossly intact. No focal motor weakness. MUSCULOSKELETAL: No muscle wasting. ASSESSMENT/PLAN: (C25.0) Malignant neoplasm of head of pancreas (HCC) (primary encounter diagnosis) Assessment: -pT2 pN2 M0 stage III adenocarcinoma of the pancreas. -Staging previously completed in the problem list. -Agreed with plan for surveillance consisting of labs/tumor marker and CT scans every 3-4 months for the first 2 years after surgery then potentially every 6 months thereafter up to 5 years. Insurance company denied every 3 months scans. Fortunately the most recent CA-19-9 was down to 36. -Reviewed CTs. AUDREY. Has potential liver cysts. -He understands high risk of recurrence. Plan: -Labs and CT scan in about 3-4 months. (K90.9, R19.7) Diarrhea due to malabsorption Assessment: -Only has been using 1 Creon capsule with meals. Plan: -Increase to 2 capsules each meal. Leandro Joy DO CNOVSP Observed: 01/24/2018 Status: COMPLETED Source: [place] 9:50 AM [facility] REPOSITORY Visit (SP) Office (KATHERINE) ELBERT ESPINOSA ([id number]) 1940 M Date Time Provider Department 01/24/18 9:50 AM LEANDRO JOY During your visit today, we recorded the following information about you: Temperature Pulse Blood pressure Weight 98 degrees 83/minute 159/83 55.1 kg Leandro Joy DO 01/24/2018 10:20 AM Signed Diagnosis: 1) pT2 pN2 M0 stage III adenocarcinoma of the pancreas HPI: The patient is a 77-year-old male who has a past medical history significant for COPD (Dulera and uses oxygen at night) and pancreas cancer. Per records from [facility]: Pancreatic cancer (adenocarcinoma), involving pancreatic head and uncinate process, 2.1 cm, stage 1B (T2-N0-M0), borderline resectable, with involvement of lateral wall [...] per day for 3 weeks then between 1- 2 weeks after completion of chemotherapy, chemoradiation was initiated with 50.4 Gy of radiation with continuous infusion of 250 (225mg) mg per sq m 5-FU daily throughout the radiation therapy, and another phase of chemotherapy was initiated 3-5 weeks after completion of chemoradiation therapy for 3 months. ? He is s/p weekly 5FU from 05/08/17 [...] willing to take that risk. In view of his decision, I will plan to continue to observe him with repeat labs and CT scan in about 3 months. He and his voiced understanding. He was encouraged to call the clinic with any other questions or concern. Most recent evaluation in July 2017-- CT C/A/P 08/13/2017: 1.??Postoperative changes are again noted. 2.??No evidence of significant lymphadenopathy or other abnormal mass. 3.??Extensive pulmonary emphysema again noted. Patient describes the skin reaction to gemcitabine as cellulitis of the right and left LE with right worse than left. Also had intense itching up the back. Had rash and exacerbation with infusional 5FU. Previous OV: Good appetite. No nausea. Taking 1 Creon and 1 Imodium tablet every meal. Chronic diarrhea. Lower abdominal pain chronically--comes and goes. Mostly hurts in the morning then partially relieved with BM. Diarrhea was worse when tried 2 Creon tablets. Smoked about 1/2 ppd. Stays active--enjoyed yard work. Presents for ongoing oncologic management. Interim history: Still getting frequent loose stools with occasional diarrhea and gas. Avoiding grease and fried foods. Concerned about weight. Tried supplements in the past but seemed to make diarrhea worse. No abdominal pain or distention. PMH, medications and allergies personally reviewed by me today. Any changes documented in appropriate section. ROS: Constitutional: Denies episodes of fever and night sweats. Neuro: Denies MITCHELL, vertigo, dizziness and imbalance. Denies symptoms of neuropathy. HEENT: No recent change in voice, vision or hearing. Resp: See above. CVS: Denies exertional chest pain, PND, orthopnea and LE edema. GI: Denies dysgeusia. Denies symptoms of stomatitis. Denies dysphagia and odynophagia. : Denies dysuria or gross hematuria. No symptoms of bladder outlet obstruction. Endo: Denies hot flashes. Denies polyuria and polydipsia. Denies heat and cold intolerance. Musculoskeletal: Denies bone, back, joint and muscular pain. Derm: Denies rash. Denies jaundice and diffuse pruritis. Heme: Denies unusual bleeding and unexplained bruising. Psych: Normal mood. PHYSICAL EXAM: Vitals: Blood pressure 159/83, pulse 83, temperature 36.7 ?C (98 ?F), temperature source Oral, weight 55.1 kg (121 lb 8 oz), SpO2 97 %. Well-appearing and in no acute distress. EYES: Sclerae are anicteric bilaterally. ENT: Oral mucosa is unremarkable. There is no sign of thrush or mucositis. NECK: Supple. No enlargement of thyroid. LYMPHATIC: There is no palpable cervical, supraclavicular, axillary or inguinal adenopathy. RESPIRATORY: Inspiratory breath sounds are of very diminished intensity in all bullock. No rales, wheezes or rhonchi. CARDIOVASCULAR: Rhythm is regular. Normal intensity S1/S2. There is no gallop or murmur. ABDOMEN: The abdomen is nondistended. No organomegaly. Mild generalized tenderness. SKIN: No jaundice or rash. No petechiae. NEUROLOGIC: line ordering clinician II-XII are grossly intact. No focal motor weakness. MUSCULOSKELETAL: No muscle wasting. ASSESSMENT/PLAN: (C25.0) Malignant neoplasm of head of pancreas (HCC) (primary encounter diagnosis) Assessment: -pT2 pN2 M0 stage III adenocarcinoma of the pancreas. -Staging previously completed in the problem list. -Agreed with plan for surveillance consisting of labs/tumor marker and CT scans every 3-4 months for the first 2 years after surgery then potentially every 6 months thereafter up to 5 years. Insurance company denied every 3 months scans. Fortunately the most recent CA-19-9 was down to 36. -Reviewed CTs. AUDREY. Has potential liver cysts. -He understands high risk of recurrence. Plan: -Labs and CT scan in about 3-4 months. (K90.9, R19.7) Diarrhea due to malabsorption Assessment: -Only has been using 1 Creon capsule with meals. Plan: -Increase to 2 capsules each meal. Leandro Joy DO Referring Provider: LEANDRO JOY [[id number]] Allergies As of Date: 01/24/2018 Noted Allergy Reaction CIPROFLOXACIN 10/09/2017 4 - Hives GEMZAR (GEMCITABINE HCL) 10/09/2017 14 - Other: See Comments Comments: Pseudo cellulitis PENICILLIN 10/09/2017 4 - Hives TETRACYCLINE 10/09/2017 9 - Itching Date Reviewed: 01/24/2018 Reviewed by: Missy Sherman - Fully Assessed Reason for Visit: Established Patient [175] Primary Visit Diagnosis:Malignant neoplasm of head of pancreas (HCC) [C25.0] Other Visit Diagnosis:Diarrhea due to malabsorption [K90.9, R19.7] Order(s):CT ABD/PEL W IVCON [[id number]] Order #: [id number] FUTURE CT CHEST W IVCON [[id number]] Order #: [id number] FUTURE iv contrast (will be provided with radiology test)CT Chest ABD/PEL-Inject, intravenously, once for 1 dose.No IV access, insert saline lock prior to the beginning of sedation, infusion, injection of imaging exam. Discontinue saline lock post exam. If Pt. has a central line or IVAD, may access for administration according to line specific nursing protocol. Once exam is complete flush line and de-access according to line specific nursing protocol in the CT contrast administration guidelines link.Disp: 1 EachRfl: 0 enteric contrast (will be provided with radiology test)For CT CHESTABD/PEL W IVCON Routine order Administer, As Directed One Time Only, via Oral, Rectal, both Oral and Rectal, Enteric Tube, Stoma or Indwelling Catheter, Enteric Contrast as designated per enteric contrast guidelinesDisp: 1 EachRfl: 0 fcrauy-dyzwqxiy-ecmrbis (CREON) 12,000-38,000 -60,000 unit cpDRTake 2 capsules by mouth three times daily with meals.Disp: 180 capsuleRfl: 5 Follow-up and Disposition History Recorded Prescriptions as of 01/24/2018 Sig: IV CONTRAST (RADIOLOGY PROCED* CT Chest ABD/PEL-Inject, intr* ENTERIC CONTRAST (RADIOLOGY P* For CT CHESTABD/PEL W IVCON R* DDOYPY-RYCUIVYV-OYSAPRV 12,00* Take 2 capsules by mouth thre* SULFAMETHOXAZOLE 800 MG-TRIME* Take 1 tablet by mouth twice * OMEPRAZOLE 40 MG CAPSULE,MUSA* Take 40 mg by mouth once edwin* MOMETASONE-FORMOTEROL HFA 200* Inhale 2 Puffs as instructed * LOPERAMIDE 2 MG CAPSULE Take 2 mg by mouth three time* OXYGEN (HOME THERAPY) Inhale 2 L/min as instructed * Medication notes this encounter MOMETASONE-FORMOTEROL HFA 200 MCG-5 MCG/ACTUATION AEROSOL INHALER >> Missy Sherman MA 01/24/2018 9:56 AM >> MISSY SHERMAN MA [employer] Jan 24, 2018 9:56 AM No longer using. Problem List As Of Date 01/24/2018 Noted Resolved Malignant neoplasm of head of pancreas (HCC) [C*INVALID FOR* Diarrhea due to malabsorption [K90.9, R19.7] INVALID FOR* Inguinal hernia [K40.90] INVALID FOR* More... Encounter Status:Closed by LEANDRO JOY DO on 01/24/18 PROGRESS Observed: 01/22/2018 Status: COMPLETED Source: [place] 11:04 AM [facility] REPOSITORY O ID: [id number] Author: Katie Graves Ct Service: (none) Author Type: (none) Type: Progress Notes Filed: 01/22/2018 11:05 AM Note Text: Radiology Service Progress Note PATIENT NAME: Elbert Espinosa DATE OF SERVICE: January 22, 2018 TIME: 11:04 AM PATIENT IDENTITY VERIFICATION COMPLETED USING TWO (2) METHODS: Patient confirmed name verbally and Date of . PATIENT GENDER DATA: Male PATIENT RELEVANT IMPLANT DATA REVIEWED: Not Applicable CONTRAST INDUCED NEPHROPATHY RISK FACTORS: Patient age > 60 years CREATININE: Creatinine Date Value Ref Range Status 01/22/2018 0.72 (L) 0.73 - 1.22 mg/dL Final Creatinine, Whole Blood (iSTAT) Date Value Ref Range Status 11/06/2017 0.90 0.70 - 1.40 mg/dL Final eGFR-All Other Races Date Value Ref Range Status 01/22/2018 >60 . Final Comment: eGFR (Estimated GFR) Units of measure: mL/min/1.73 meters squared eGFR is derived from the reexpressed MDRD Study equation using the following parameters: serum creatinine, age, gender and race. The creatinine assay has been calibrated to be traceable to IDMS. An eGFR <60 mL/min/1.73m2 for >3 months is consistent with chronic kidney disease. Refer to KDOQI guidelines for clinical interpretation. In patients with unstable renal function, e.g. those with acute kidney injury, the eGFR may not accurately reflect actual GFR. eGFR- Date Value Ref Range Status 01/22/2018 >60 Final P.O.C.T. RESULTS: POC done: Yes, See Lab Tab January 22, 2018 RADIOLOGIST NOTIFIED?: No ALLERGIES: Reviewed and unchanged CONTRAST ALLERGY: NO. PERIPHERAL IV ACCESS: power port accessed by hemSesamea RADIOLOGY DEPARTMENT: CT; Exam(s) Completed: Chest Abdomen Pelvis SIGNED BY: Katie Graves Ct January 22, 2018 11:[address] CHEST W IVCON Observed: 01/22/2018 Status: F Source: [place] 10:57 AM [facility] REPOSITORY * * *Final Report* * * DATE OF EXAM: Jan 22 2018 10:57AM [facility] 0539 - CT CHEST W IVCON / PROCEDURE REASON: Malignant neoplasm of head of pancreas * * * * Physician Interpretation * * * * EXAMINATION: CT CHEST WITH IV CONTRAST and CT ABDOMEN AND PELVIS WITH IV CONTRAST CLINICAL HISTORY: Malignant neoplasm of head of pancreas TECHNIQUE: CT of the chest from the thoracic inlet to the upper abdomen was performed following IV contrast. CT of the abdomen and pelvis was performed using standard technique, scanning from just above the dome of the diaphragm to the symphysis pubis. MQ: CTCAPW_4 Contrast: Other: 111 ml of Omnipaque 300 Oral: 50 ml of 50ML Omnipaque [address] Radiation dose: Integrated Dose-length product (DLP) for this visit = 420 mGy*cm. CT Dose Reduction Employed: Automated exposure control(AEC) and iterative recon COMPARISON: None. RESULT: Limitations: None. Chest: Lines, tubes, and devices: There is a right-sided MediPort with the tip in the superior vena cava. Lung parenchyma and pleura: Severe centrilobular and paraseptal emphysema. There is a large right apical bulla. There is some right apical scarring. No consolidation. No suspicious pulmonary nodule. No pleural effusion. Central airways are patent. Thoracic inlet, heart, and mediastinum: No lymphadenopathy in the axillary, mediastinal, or hilar regions. There is a 1 cm left thyroid nodule. The thoracic aorta and main pulmonary artery are normal in caliber. The cardiac chambers are normal in size. Coronary artery atherosclerotic calcifications are noted, although the study is not optimized for coronary assessment. No pericardial effusion or thickening. Skeleton and soft tissues: No acute fracture or destructive osseous lesion. No chest wall mass. Abdomen / Pelvis: Liver: There are a few subcentimeter low-density lesions in the liver on images 22 and 31 which are too small to characterize. Normal hepatic morphology. Biliary: Pneumobilia. No biliary dilatation. Gallbladder is surgically absent. Spleen: No mass. No splenomegaly. Pancreas: There are postoperative changes from a Whipple procedure. There is generalized atrophy of the pancreas. There is dilatation of the pancreatic duct up to 5 mm. Adrenals: No mass. Kidneys: The kidneys enhance symmetrically. There is no hydronephrosis. There are subcentimeter low-density lesions in both kidneys which are too small to characterize. GI tract: No dilation or wall thickening. Lymph nodes: No abdominal or pelvic lymphadenopathy. Mesentery/Peritoneum: No ascites or mass. Retroperitoneum: No mass. Vasculature: The celiac axis and SMA are patent. The portal vein and branches, splenic vein, SMV, and hepatic veins are patent. No abdominal aortic aneurysm. Pelvis: No mass, ascites or fluid collection. The bladder has a normal appearance. Bones/Soft Tissues: No acute fracture or destructive osseous lesion. IMPRESSION: 1. Postoperative changes from a Whipple procedure. There is generalized atrophy of the pancreas and dilatation of the pancreatic duct. No recurrent mass is visualized. 2. Subcentimeter low-density lesions in the liver which are too small to characterize. Given patient's history of malignancy, continued follow-up is advised. 3. Severe emphysema. No suspicious pulmonary nodules. No thoracic lymphadenopathy. Refinery Operator Assistant: PSCB Transcribe Date/Time: Jan 23 2018 4:05P Dictated by : LISA BRODERICK MD This examination was interpreted and the report reviewed and electronically signed by: LISA BRODERICK MD on Jan 23 2018 4:23PM EST [id number] CT ABD/PEL W IVCON Observed: 01/22/2018 Status: F Source: [place] 10:57 AM [facility] REPOSITORY * * *Final Report* * * DATE OF EXAM: Jan 22 2018 10:57AM [facility] 0530 - CT ABD/PEL W IVCON / PROCEDURE REASON: Malignant neoplasm of head of pancreas * * * * Physician Interpretation * * * * EXAMINATION: CT CHEST WITH IV CONTRAST and CT ABDOMEN AND PELVIS WITH IV CONTRAST CLINICAL HISTORY: Malignant neoplasm of head of pancreas TECHNIQUE: CT of the chest from the thoracic inlet to the upper abdomen was performed following IV contrast. CT of the abdomen and pelvis was performed using standard technique, scanning from just above the dome of the diaphragm to the symphysis pubis. MQ: CTCAPW_4 Contrast: Other: 111 ml of Omnipaque 300 Oral: 50 ml of 50ML Omnipaque [address] Radiation dose: Integrated Dose-length product (DLP) for this visit = 420 mGy*cm. CT Dose Reduction Employed: Automated exposure control(AEC) and iterative recon COMPARISON: None. RESULT: Limitations: None. Chest: Lines, tubes, and devices: There is a right-sided MediPort with the tip in the superior vena cava. Lung parenchyma and pleura: Severe centrilobular and paraseptal emphysema. There is a large right apical bulla. There is some right apical scarring. No consolidation. No suspicious pulmonary nodule. No pleural effusion. Central airways are patent. Thoracic inlet, heart, and mediastinum: No lymphadenopathy in the axillary, mediastinal, or hilar regions. There is a 1 cm left thyroid nodule. The thoracic aorta and main pulmonary artery are normal in caliber. The cardiac chambers are normal in size. Coronary artery atherosclerotic calcifications are noted, although the study is not optimized for coronary assessment. No pericardial effusion or thickening. Skeleton and soft tissues: No acute fracture or destructive osseous lesion. No chest wall mass. Abdomen / Pelvis: Liver: There are a few subcentimeter low-density lesions in the liver on images 22 and 31 which are too small to characterize. Normal hepatic morphology. Biliary: Pneumobilia. No biliary dilatation. Gallbladder is surgically absent. Spleen: No mass. No splenomegaly. Pancreas: There are postoperative changes from a Whipple procedure. There is generalized atrophy of the pancreas. There is dilatation of the pancreatic duct up to 5 mm. Adrenals: No mass. Kidneys: The kidneys enhance symmetrically. There is no hydronephrosis. There are subcentimeter low-density lesions in both kidneys which are too small to characterize. GI tract: No dilation or wall thickening. Lymph nodes: No abdominal or pelvic lymphadenopathy. Mesentery/Peritoneum: No ascites or mass. Retroperitoneum: No mass. Vasculature: The celiac axis and SMA are patent. The portal vein and branches, splenic vein, SMV, and hepatic veins are patent. No abdominal aortic aneurysm. Pelvis: No mass, ascites or fluid collection. The bladder has a normal appearance. Bones/Soft Tissues: No acute fracture or destructive osseous lesion. IMPRESSION: 1. Postoperative changes from a Whipple procedure. There is generalized atrophy of the pancreas and dilatation of the pancreatic duct. No recurrent mass is visualized. 2. Subcentimeter low-density lesions in the liver which are too small to characterize. Given patient's history of malignancy, continued follow-up is advised. 3. Severe emphysema. No suspicious pulmonary nodules. No thoracic lymphadenopathy. Refinery Operator Assistant: PSCB Transcribe Date/Time: Jan 23 2018 4:05P Dictated by : LISA BRODERICK MD This examination was interpreted and the report reviewed and electronically signed by: LISA BRODERICK MD on Jan 23 2018 4:23PM EST [id number] 19-9 Collected: 01/22/2018 Status: F Source: [place] 9:48 AM [facility] RE[facility] TYPE CODE TESTS RESULT OUT OF RANGE REFERENCE UNITS LAB CA199 <36 U/mL High CA 19-9 40 Result Comment: Test analyzed by the Prabha DxI method. Performed By: #### CA199 #### [facility] [address] [place], [place] [address] DEA ABS GR + CBC Collected: 01/22/2018 Status: F Source: [place] 9:46 AM [facility] REPOSITORY TYPE CODE TESTS RESULT OUT OF REFERENCE UNITS RANGE LAB WWBC 3.70-11.00 k/uL [place] WBC 4.39 LAB WRBC 4.20-6.00 m/uL Low [place] RBC 3.82 LAB WHGB 13.0-17.0 g/dL Low [place] Hemoglobin 12.5 LAB WHCT 39.0-51.0 % Low [place] Hematocrit 36.6 LAB WMCV 80.0-100.0 fL [place] MCV 95.8 LAB WMCH 26.0-34.0 pg [place] MCH 32.7 LAB WMCHC 30.5-36.0 g/dL [place] MCHC 34.2 LAB WRDW 11.5-15.0 % [place] RDW 12.8 LAB WPLT 150-400 k/uL [place] Platelet Cnt 154 LAB WMPV 9.0-12.7 fL [place] MPV 9.4 Result Comment: Test performed at: [facility], [address] [place] [address] Rd[address] [place] [address]. LAB ABGRAN 1.45-7.50 k/uL Absol Gran 2.46 Count BASIC METABOLIC PANL Collected: 01/22/2018 Status: F Source: [place] 9:46 AM [facility] REPOSITORY TYPE CODE TESTS RESULT OUT OF REFERENCE UNITS RANGE LAB GLU 74-99 mg/dL Glucose High 107 LAB BUN 9-24 mg/dL BUN 11 LAB CRET 0.73-1.22 mg/dL Low Creatinine 0.72 LAB NA 136-144 mmol/L Sodium 137 LAB K 3.7-5.1 mmol/L Potassium 3.9 LAB CL 97-105 mmol/L Chloride 101 LAB CO2 22-30 mmol/L CO2 29 LAB AGAP 9-18 mmol/L Low Anion Gap 7 LAB CA 8.5-10.2 mg/dL Calcium, Total 9.2 LAB GFRAA eGFR- >60 Amer. LAB GFRNAA . eGFR-All Other Races >60 Result Comment: eGFR (Estimated GFR) Units of measure: mL/min/1.73 meters squared eGFR is derived from the reexpressed MDRD Study equation using the following parameters: serum creatinine, age, gender and race. The creatinine assay has been calibrated to be traceable to IDMS. An eGFR <60 mL/min/1.73m2 for >3 months is consistent with chronic kidney disease. Refer to KDOQI guidelines for clinical interpretation. In patients with unstable renal function, e.g. those with acute kidney injury, the eGFR may not accurately reflect actual GFR. HEPATIC FUNCTN PANEL Collected: 01/22/2018 Status: F Source: [place] 9:46 AM [facility] REPOSITORY TYPE CODE TESTS RESULT OUT OF REFERENCE UNITS RANGE LAB ALB 3.9-4.9 g/dL Low Albumin 3.7 LAB TBIL 0.2-1.3 mg/dL Bilirubin, Total 0.4 LAB CBIL <0.2 mg/dL Bilirubin,Conjuga <0.2 jacky LAB ALKP 38-113 U/L Alkaline Phosphatase 90 LAB AST 14-40 U/L AST 17 LAB ALT 10-54 U/L Low ALT 8 LAB TP 6.3-8.0 g/dL Low Protein, Total 6.1 PROGRESS Observed: 12/05/2017 Status: COMPLETED Source: [place] 8:11 PM [facility] REPOSITORY HNO ID: [id number] Author: Balbina Rivera Service: (none) Author Type: Physician Type: Progress Notes Filed: 12/05/2017 8:13 PM Note Text: Elbert is s/p right inguinal hernia and umbilical hernia on 11/27/17. He states that he is doing well. Denies any problems Examination: wounds are well healed, no evidence of infection. No recurrence of hernias palpated. Impression: s/p umbilical hernia repair and right inguinal hernia repair. Follow up with me as per needed. Patient to return to his primary physician for medical care. DOV Observed: 12/05/2017 Status: COMPLETED Source: [place] 1:00 PM [facility] REPOSITORY Office Visit (GENSWS) ELBERT ESPINOSA ([id number]) 1940 M Date Time Provider Department 12/05/17 1:00 PM BALBINA RIVERA During your visit today, we recorded the following information about you: Balbina Rivera MD 12/05/2017 8:13 PM Signed Elbert is s/p right inguinal hernia and umbilical hernia on 11/27/17. He states that he is doing well. Denies any problems Examination: wounds are well healed, no evidence of infection. No recurrence of hernias palpated. Impression: s/p umbilical hernia repair and right inguinal hernia repair. Follow up with me as per needed. Patient to return to his primary physician for medical care. Referring Provider: SAMINA SANCHEZ [[id number]] Allergies As of Date: 12/05/2017 Noted Allergy Reaction CIPROFLOXACIN 10/09/2017 4 - Hives GEMZAR (GEMCITABINE HCL) 10/09/2017 14 - Other: See Comments Comments: Pseudo cellulitis PENICILLIN 10/09/2017 4 - Hives TETRACYCLINE 10/09/2017 9 - Itching Date Reviewed: 12/05/2017 Reviewed by: Alaina Mills LPN - Fully Assessed Reason for Visit: Post Op [174] Primary Visit Diagnosis:Surgery follow-up examination [Z09] Prescriptions as of 12/05/2017 Sig: SULFAMETHOXAZOLE 800 MG-TRIME* Take 1 tablet by mouth twice * OMEPRAZOLE 40 MG CAPSULE,MUSA* Take 40 mg by mouth once edwin* HFRVFU-VRMALUKT-CTUJUVC 12,00* Take by mouth three times adama* MOMETASONE-FORMOTEROL HFA 200* Inhale 2 Puffs as instructed * LOPERAMIDE 2 MG CAPSULE Take 2 mg by mouth three time* OXYGEN (HOME THERAPY) Inhale 2 L/min as instructed * Problem List As Of Date 12/05/2017 Noted Resolved Malignant neoplasm of head of pancreas (HCC) [C*INVALID FOR* Diarrhea due to malabsorption [K90.9, R19.7] INVALID FOR* Inguinal hernia [K40.90] INVALID FOR* More... Encounter Status:Closed by MD BALBINA RIVERA on 12/05/17 NURSING PROG Observed: 11/27/2017 Status: COMPLETED Source: [place] 10:40 AM [facility] REPOSITORY HNO ID: [id number] Author: Yamile AlstonRn) PAT Bell Service: Nursing Author Type: Registered Nurse Type: Nursing Progress Note Filed: 11/27/2017 11:02 AM Note Text: Patient denies nausea and stated pain 04/07 but states he does not want any pain medication. Patient taking po without difficulty. Patient voiding without difficulty. Dressing dry and intact. Ice bag applied. NURSING PROG Observed: 11/27/2017 Status: COMPLETED Source: [place] 10:40 AM [facility] REPOSITORY HNO ID: [id number] Author: Iwona AlstonRn) PAT [place] Service: General Surgery Author Type: Registered Nurse Type: Nursing Progress Note Filed: 11/28/2017 5:56 PM Note Text: Reviewed signs and symptoms of infection. Patient and his Hannah both on the phone, state understanding. Reminded to keep post-op appointment next week. ANES POST Observed: 11/27/2017 Status: COMPLETED Source: [place] 9:52 AM [facility] REPOSITORY HNO ID: [id number] Author: Keli Bishop Service: (none) Author Type: Physician Type: Anesthesia PostOp Filed: 11/27/2017 9:52 AM Note Text: POST ANESTHESIA EVALUATION NOTE SERVICE DATE: 11/27/2017 SERVICE TIME: 9:52 AM : 1940 Vitals: 11/27/17699 Temp: 36.7 ?C (98 ?F) 11/27/17699 BP: 166/78 11/27/17699 Pulse: 79 11/27/17 07 Resp: 16 11/27/17699 SpO2: 100% Validated Vital Signs: Yes POST ANES STATUS: No apparent anesthetic complications. The patient is appropriately hydrated with stable respiratory and cardiovascular status. Patient has safe and adequate airway control. The patient has appropriate pain relief and no significant post operative nausea or vomiting. The patient has achieved baseline mental status. Intra-Operative Events: No Significant Anesthesia Events Further assessment by Anesthesia Service: None Other Remarks: SIGNATURE: Keli Bishop MD PATIENT NAME: Elbert Espinosa DATE: November 27, 2017 TIME: 9:52 AM PAGER/CONTACT #: BRIEF OP NOT Observed: 11/27/2017 Status: COMPLETED Source: [place] 9:20 AM [facility] REPOSITORY HNO ID: [id number] Author: Balbina Rivera Service: (none) Author Type: Physician Type: Brief Op Note Filed: 11/27/2017 9:32 AM Note Text: BRIEF OPERATIVE NOTE SURGERY DATE: 11/27/2017 Incision/Procedure Start Time: 8:15 Incision Close/Procedure End Time: 9:30 Surgeon(s)/Proceduralist(s) and Crusher(s): Miguel, first dyer Angela Menendez PA-C Procedures: Right inguinal hernia repair with mesh, umbilical hernia repair Anesthesia: MAC, local Findings: right inguinal hernia - direct and indirect, umbilical hernia Estimated Blood Loss: < 10 mls Specimens: None Complications: None Preop Diagnosis: right inguinal hernia, umbilical hernia Postop Diagnosis: right inguinal hernia - indirect and direct, umbilical hernia Prosthesis - Lot [id number], Bard 3D Max mesh, expiration date 2021-05-23 SIGNATURE: Balbina Rivera MD PATIENT NAME: Elbert Espinosa DATE: November 27, 2017 TIME: 9:21 AM PAGER/CONTACT #: ANES PREOP Observed: 11/27/2017 Status: COMPLETED Source: [place] 7:52 AM [facility] REPOSITORY HNO ID: [id number] Author: Keli Bishop Service: (none) Author Type: Physician Type: Anesthesia PreOp Filed: 11/27/2017 7:53 AM Note Text: ANESTHESIOLOGY PREOPERATIVE ASSESSMENT SERVICE DATE: 11/27/2017 : 1940 SERVICE TIME: 7:52 AM Surgeon(s): Balbina Rivera Procedure(s) (LRB): HERNIORRHAPHY INGUINAL ELECTIVE ADULT REDUCIBLE (Right) HERNIORRHAPHY UMBILICAL ADULT (N/A) Estimated body mass index is 18.85 kg/m? as calculated from the following: Height as of this encounter: 172.7 cm (5' 8). Weight as of this encounter: 56.2 kg (124 lb). MOST RECENT HEMATOCRIT AND POTASSIUM RESULTS: No results found for this basename: HCT,K ANES DOS/PREOP NOTE: Vitals: 11/27/17 0700 BP: 166/78 Pulse: 79 Resp: 16 Temp: 36.7 ?C (98 ?F) TempSrc: Temporal Artery SpO2: 100% Weight: 56.2 kg (124 lb) Height: 172.7 cm (5' 8) ACTIVE PROBLEM LIST Malignant Neoplasm of Head of Pancreas (Hcc) Diarrhea Due to Malabsorption Inguinal Hernia PAST MEDICAL HISTORY Diagnosis Date - Pancreatic cancer (HCC) PAST SURGICAL HISTORY Procedure Laterality Date - APPENDECTOMY HX - CHOLECYSTECTOMY HX - COLON SURGERY HX - PAST SURGICAL HISTORY OF 01/24/2017 Whipple procedure - PORTOCATH PLACEMENT FAMILY HISTORY Problem Relation Age of Onset - Cancer Mother cervical - Stroke Mother - Hypertension Mother - Cancer Father colon and lung - Cancer Sister appendix - Hypertension Brother Social History: Social History Substance Use Topics - Smoking status: Current Every Day Smoker Packs/day: 1.00 Start date: 10/09/1966 - Smokeless tobacco: Never Used - Alcohol use No No current facility-administered medications on file prior to encounter. Current Outpatient Prescriptions on File Prior to Encounter: Omeprazole 40 mg capsule Take 40 mg by mouth once daily. emgsoe-yczhlano-hnpzios (CREON) 12,000-38,000 -60,000 unit cpDR Take by mouth three times daily with meals. mometasone-formoterol (DULERA) 200-5 mcg/actuation inhaler Inhale 2 Puffs as instructed once daily. loperamide (IMODIUM) 2 mg cap(s) Take 2 mg by mouth three times daily. Taking 2 tabs TID OXYGEN, HOME THERAPY, Inhale 2 L/min as instructed as directed. At night sulfamethoxazole-trimethoprim (BACTRIM DS) 800-160 mg per tablet Take 1 tablet by mouth twice daily for 7 days. Current Facility-Administered Medications: lidocaine 10 mg/mL (1 %) 1-2 mg injection (XYLOCAINE) 0.1- 0.2 mL INTRADERMAL PRN Balbina Rivera lactated ringers infusion 75 mL/hr INTRAVENOUS CONTINUOUS Balbina Rivera Last Rate: 75 mL/hr at 11/27/17 0730 75 mL/hr at 11/27/17 0730 clindamycin 900 mg in D5W 50 mL (CLEOCIN) 900 mg INTRAVENOUS Pre-Op Once Balbina Rivera Last Rate: 100 mL/hr at 11/27/17 0732 900 mg at 11/27/17 0732 Allergies: ALLERGIES Allergen Reactions - Ciprofloxacin Hives - Gemzar [Gemcitabine* Other: See Comments Pseudo cellulitis - Penicillin Hives - Tetracycline Itching REVIEW OF SYSTEMS: REVIEW OF SYSTEMS: As stated in Active Problem List/ Past Medical History ANESTHESIOLOGY REVIEW: Airway Assessment: MP 2; Neck ROM: Full ROM without neurologic symptoms; Airway Evaluation: No significant abnormalities Symptoms of Sleep Apnea: Age over 50 (77 year old) and Male gender Intubation History: No previous history of difficult intubation and History of general anesthesia with no known difficulty Dentition: Dentures: both ADDITIONAL PHYSICAL EXAM: Lungs: Lungs clear to auscultation. Good diaphragmatic excursion. Cardiac: normal S1 and S2; no rubs, no murmurs, and no gallops Additional Pertinent Findings: N/A ADVERSE ANESTHESIA EVENT: No history of adverse event FAMILY HIISTORY OF ANESTHESIA: No known issues BLOOD PRODUCTS: Not anticipated for this procedure OTHER MEDICAL PROBLEMS: None I have interviewed and examined the patient. I have reviewed the medical record and/or the pre-anesthesia evaluation, pertinent labs, and test results. Significant changes in the patient's condition since the History and Physical, not otherwise documented in primary service progress notes: No Anesthetic risks, benefits, alternatives, personnel and consent discussed: Yes ANES REVIEW: This contains information obtained greater than 48 hours prior to the Surgery/Procedure. See Day of Surgery Note SIGNATURE: Keli Bishop MD PATIENT NAME: Elbert Espinosa DATE: November 27, 2017 TIME: 7:52 AM PAGER/CONTACT #: OPERATIVE NO Observed: 11/27/2017 Status: COMPLETED Source: [place] 12:00 AM [facility] REPOSITORY [facility] ID: [id number] Author: Balbina Rivera Service: (none) Author Type: Physician Type: Operative Report Filed: 11/27/2017 5:57 PM Note Text: [facility] - Operative Report ELBERT ESPINOSA : 1940 AGE: 77. SEX: M PATIENT TYPE: A HOSP SVC: GEN LOCATION: [facility] [place] ATTENDING PHYSICIAN: Balbina Rivera MD CSN NUMBER: [id number] DATE OF SURGERY/PROCEDURE: 11/27/2017 INCISION/PROCEDURE START TIME: 8:15 AM INCISION CLOSE/PROCEDURE END TIME: 9:30 AM PREOPERATIVE DIAGNOSIS: Right inguinal hernia, umbilical hernia POSTOPERATIVE DIAGNOSIS: Right inguinal hernia - indirect and direct, umbilical hernia SURGEON: Balbina Rivera MD CHARCOAL UNLOADER: project construction assistant manager is Angela Menendez. She is physician assistant to the director assisting me as there is no surgery residents available. SURGERY/PROCEDURE: Right inguinal hernia repair with mesh, umbilical hernia repair. ANESTHESIA: Monitored Anesthesia Care LOCATION: [facility]. PREOPERATIVE DIAGNOSES: Right inguinal hernia, umbilical hernia. POSTOPERATIVE DIAGNOSES: Right inguinal hernia, direct and indirect; and umbilical hernia. ANESTHESIA USED: MAC local. SPECIMEN: None. INDICATIONS: Elbert Espinosa is a 77-year-old white male, who presents with an umbilical hernia and a right inguinal hernia, both reducible and symptomatic. He, therefore, presents for hernia repairs. He has been counseled of the risks of procedure including, but not limited to, infection, bleeding, injury to any bowel or bladder, injury to any blood vessels or nerves, scar tissue, recurrence of hernias, injury to the spermatic cord, injury to the testicle, chronic groin pain, scar tissue, wound infections, etc. The patient stands and agrees to proceed. DESCRIPTION OF PROCEDURE: After informed consent was given, the patient was brought to the operating room, placed in supine position. Appropriate time-out protocol was done in the preprocedure area as well as in the operating room. The patient's abdomen was then prepped with a sterile surgical skin preparation. Appropriate sterile surgical drapes were placed. The right inguinal hernia repair was done first. The skin and subcutaneous tissues were infiltrated into the skin and subcutaneous tissues with local anesthetic after ascertaining proper anatomical landmarks. A transverse skin incision was then made above the location of the internal inguinal ring using a 15 blade scalpel. It was carried down through the subcutaneous tissues using electrocautery. The external oblique fascia was then identified. It was then opened along its fibers. This was done carefully avoiding any injury to any blood vessels or nerves. The internal oblique fascia and transversus fascia were then opened horizontal to the hypogastric vessels. A preperitoneal space was thus entered. Blunt dissection was done in the preperitoneal space to separate out the following structures, pubic tubercle, Ace's ligament, and iliac vessels. This was done to reduce the hernia. There was an indirect inguinal hernia as well as direct inguinal hernia. The peritoneal sac was then from the anterior abdominal wall using blunt dissection. The spermatic cord was then isolated. There was an indirect sac that was located adherent to the spermatic cord, it was bluntly dissected from the spermatic cord approximately to the level of the separation of the gonadal vessels and the vas deferens. The sac was opened. There were no incarcerated contents within it. The opening was then closed with running 3-0 Vicryl suture. This was then reduced in the preperitoneal space. Once all the peritoneal tissues were freed from the anterior abdominal wall, then a Bard large 3D right-sided mesh was placed into the preperitoneal space according to manufacture's guidelines. It was overlapped medially at the pubic tubercle, inferior to the Ace's ligament, and then find up against the anterior abdominal wall. Of note is that the mesh covers the wound opening over opening also. Hemostasis was carefully controlled with electrocautery. The internal oblique fascia and the transversalis fascia were reapproximated with mtklng-ml-ommcr 0 Vicryl suture. One of the suture was used to catch the mesh to secure to the anterior abdominal wall. The external oblique fascia was reapproximated using a running 0 Vicryl suture. Jhonathan's fascia was approximated using Vicryl suture in interrupted simple fashion. The skin incision was closed with 4-0 Monocryl in a running subcuticular fashion. Benzoin and Steri-Strips used to reinforce skin closure, and proper sterile dressings were applied. The next procedure performed was the umbilical hernia repair. A transverse incision was made inferior to the umbilical dimple with a 15 blade scalpel. It was carried down through the subcutaneous tissues using electrocautery. Blunt dissection was then done to dissect the umbilical hernia from the surrounding fascia. Once this was done, then the sac was from the fascia using sharp dissection. This was carefully done to prevent any injury to any internal organs. Once the fascial defect was completely delineated, it was noted to be 1 cm in maximum dimension. The umbilical dermis was from the fascia using sharp dissection. Once the fascia was then completely freed of all surrounding tissues, then it was reapproximated transversely using oopsra-az-ctzyy 0 Vicryl suture. Hemostasis carefully controlled with electrocautery. The Jhonathan's fascia was reapproximated using 3-0 Vicryl suture in interrupted simple fashion. Skin incision was closed with 4-0 Monocryl in a running subcuticular fashion. Benzoin and Steri-Strips used to reinforce skin closure. Proper sterile dressings were applied. COMPLICATIONS: None. DRAINS: None. PROSTHESIS: Bard 3D Max mesh large, lot #[id number], expiration date of 05/23/2021, reference #[id number]. Balbina Rivera MD LW:[id number] /[id number] HISTORY PHYSICAL Observed: 11/26/2017 Status: COMPLETED Source: [place] 5:40 PM [facility] REPOSITORY HNO ID: [id number] Author: Balbina Rivera Service: (none) Author Type: Physician Type: HANDP Filed: 11/26/2017 5:41 PM Note Text: Elbert Espinosa 1940 ? REFERRING PHYSICIAN: Samina Sanchez, * ? CHIEF COMPLAINT: Umbilical hernia, right inguinal hernia ? HPI: Elbert is a 77 year old male with a complaint of a bulge and discomfort in his right inguinal region and umbilical region. The patient notes discomfort in this area with lifting and coughing. The symptoms have increased, over the past months. ? The patient notes no symptoms of bowel obstruction and denies nausea or vomiting. The patient was seen by Dr. Leandro Joy who felt the patient has a hernia. Elbert was referred for evaluation and treatment. ? The patient notes his inguinal hernia prevents him from walking or doing his daily activities. He states his umbilical hernia does not really bother her much. ? The patient had an open Whipple operation performed in [place] December 2016 for pancreatic cancer. 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 He has a diagnosis of COPD and continues to smoke. The patient also notes a history of a bowel resection of unknown location in 2003. ? Has had 50 pound weight loss with his pancreatic cancer treatment. ? ? PAST MEDICAL HISTORY - history of Pancreatic cancer (HCC) ? ? ? PAST SURGICAL HISTORY - APPENDECTOMY HX ? ? - CHOLECYSTECTOMY HX ? ? - COLON SURGERY HX ? ? - PAST SURGICAL HISTORY OF 01/24/2017 Whipple procedure - PORTOCATH PLACEMENT ? CURRENT MEDICATIONS Omeprazole 40 mg capsule Take 40 mg by mouth once daily. lowugx-chiiexed-haqqluu (CREON) 12,000-38,000 -60,000 unit cpDR Take by mouth three times daily with meals. mometasone-formoterol (DULERA) 200-5 mcg/actuation inhaler Inhale 2 Puffs as instructed once daily. loperamide (IMODIUM) 2 mg cap(s) Take 2 mg by mouth three times daily. Taking 2 tabs TID OXYGEN, HOME THERAPY, Inhale 2 L/min as instructed as directed. At night sulfamethoxazole-trimethoprim (BACTRIM DS) 800-160 mg per tablet Take 1 tablet by mouth twice daily for 7 days. ? ? ALLERGIES: Ciprofloxacin; Gemzar [Gemcitabine Hcl]; Penicillin; Tetracycline ? ? PERSONAL HISTORY: SOCIAL HISTORY Social History Marital status: Spouse name: Years of education: Number of children: ?Social History Main Topics Smoking status: Current Every Day Smoker Packs/day: 1.00 Years: 0.00 Start date: 10/09/1966 Smokeless tobacco: Never Used Alcohol use: No Drug use: No ? FAMILY HISTORY: - Cancer Mother ? Cervical, Stroke, hypertension ? - Cancer Father ? colon and lung - Cancer Sister appendix - Hypertension Brother ? ? ? REVIEW OF SYSTEMS: Constitutional: Denies episodes of fever and night sweats. Neuro: ?Denies MITCHELL, vertigo, dizziness and imbalance. Denies symptoms of neuropathy. HEENT: No recent change in voice, vision or hearing. Resp: has shortness of breath upon exertion CVS: Denies exertional chest pain, PND, orthopnea and LE edema. GI: Denies dysgeusia. Denies symptoms of stomatitis. Denies dysphagia and odynophagia. : Denies dysuria or gross hematuria. No symptoms of bladder outlet obstruction. Endo: Denies hot flashes. Denies polyuria and polydipsia. Denies heat and cold intolerance. Musculoskeletal: Denies bone, back, joint and muscular pain. Derm: Denies rash. Denies jaundice and diffuse pruritis. Heme: Denies unusual bleeding and unexplained bruising. Psych: Normal mood. ? PHYSICAL EXAMINATION: General: The patient is 77 year old male, well nourished, well hydrated in no acute distress. The patient is oriented to time, place, and person. Strong odor of cigarettes VITALS: Blood pressure 144/72, pulse 80, height 172.7 cm (5' 8), weight 55.3 kg (122 lb). Body mass index is 18.55 kg/m?. HEENT: Normal cephalic, ataumatic, pupils are equally round, sclera are anicteric. Wearing glasses. Mucous membranes are moist, oropharynx is clear. Neck has no masses, asymmetry or lymphadenopathy. Thyroid is unremarkable. Respiratory: Coarse breath sounds bibasilarly consistent with tobacco use. Normal respiratory excursion and pattern. Cardiac: Examination is regular rate and rhythm. Abdominal exam: Soft, nontender, with no palpable masses. No hepatosplenomegaly. A moderate reducible right inguinal hernia, no left inguinal, a small umbilical hernia. Well-healed Chevron incision without signs of herniation. Rectal exam: exam deferred Extremities: no clubbing, cyanosis or edema. No adenopathy. ? IMPRESSION: right inguinal hernia, umbilical hernia, tobacco use, history of pancreatic cancer ? PLAN: I have discussed above with patient and his who is present with him. I have explained to them that TOB use inhibits healing and increases risk of infection. Thus patient has high risk of infection after surgery and recurrence of hernia. Despite this, patient wishes to proceed, as he exhibits no interest in discontinuing his smoking habit. I have explained to them the procedure to be done. I have counseled them as to the risks of surgery, including but not limited to: infection, bleeding, injury to any blood vessels/nerves, scar tissue, chronic groin pain, recurrence of hernia, infection of mesh, wound infections, intraabdominal abscess/bleeding, injury to the spermatic cord and/or testicle, complications of anesthesia such as TN/CVA/PE/pneumonia/aspiration, etc. - they understand. The patient wishes to proceed. Patient is scheduled for surgery at [facility] On 11/20/17. ? Diagnoses: (K40.90) Right inguinal hernia (primary encounter diagnosis) (C25.9) Malignant neoplasm of pancreas, unspecified location of malignancy (HCC) (Z72.0) Tobacco use NURSING PROG Observed: 11/26/2017 Status: COMPLETED Source: [place] 10:39 AM [facility] REPOSITORY [facility]NO ID: [id number] Author: Yamile Mathur) PAT Bell Service: Nursing Author Type: Registered Nurse Type: Nursing Progress Note Filed: 11/26/2017 10:40 AM Note Text: Per Iwona STEWART, Dr. Bishop aware of patients history and test results. NURSING PROG Observed: 11/26/2017 Status: COMPLETED Source: [place] 10:39 AM [facility] REPOSITORY [facility]NO ID: [id number] Author: Yamile (Rn) PAT Bell Service: Nursing Author Type: Registered Nurse Type: Nursing Progress Note Filed: 11/26/2017 10:39 AM Note Text: Pre call completed, arrival time given MISCELLANEOUS LAB Collected: 11/20/2017 Status: F Source: [place] PROCEDURE 9:47 AM [facility] REPOSITORY Order Comment: Comments: CBC BMP AIC Test(s) Ordered: LABS SENT TO [facility] PER INSURANCE TYPE CODE TESTS RESULT OUT OF RANGE REFERENCE UNITS LAB L801.1541 Normal MISC LAB TEST Result Comment: Sent directly to testing facility per ordering physician. 11/20/17 1447 MYOUNG Performed By: #### [id number] #### [facility] [address] [place], [address] PROGRESS Observed: 11/16/2017 Status: COMPLETED Source: [place] 11:34 AM [facility] REPOSITORY [facility] ID: [id number] Author: Balbina Rivera Service: (none) Author Type: Physician Type: Progress Notes Filed: 11/17/2017 9:12 PM Note Text: Elbert Espinosa 1940 REFERRING PHYSICIAN: Samina Sanchez, * CHIEF COMPLAINT: Umbilical hernia, right inguinal hernia HPI: Elbert is a 77 year old male with a complaint of a bulge and discomfort in his right inguinal region and umbilical region. The patient notes discomfort in this area with lifting and coughing. The symptoms have increased, over the past months. The patient notes no symptoms of bowel obstruction and denies nausea or vomiting. The patient was seen by Dr. Leandro Joy who felt the patient has a hernia. Elbert was referred for evaluation and treatment. The patient notes his inguinal hernia prevents him from walking or doing his daily activities. He states his umbilical hernia does not really bother her much. The patient had an open Whipple operation performed in [place] December 2016 for pancreatic cancer. 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 He has a diagnosis of COPD and continues to smoke. The patient also notes a history of a bowel resection of unknown location in 2003. Has had 50 pound weight loss with his pancreatic cancer treatment. PAST MEDICAL HISTORY - history of Pancreatic cancer (HCC) PAST SURGICAL HISTORY - APPENDECTOMY HX - CHOLECYSTECTOMY HX - COLON SURGERY HX - PAST SURGICAL HISTORY OF 01/24/2017 Whipple procedure - PORTOCATH PLACEMENT CURRENT MEDICATIONS Omeprazole 40 mg capsule Take 40 mg by mouth once daily. mzdjuq-adogwgsn-uojijxv (CREON) 12,000-38,000 -60,000 unit cpDR Take by mouth three times daily with meals. mometasone-formoterol (DULERA) 200-5 mcg/actuation inhaler Inhale 2 Puffs as instructed once daily. loperamide (IMODIUM) 2 mg cap(s) Take 2 mg by mouth three times daily. Taking 2 tabs TID OXYGEN, HOME THERAPY, Inhale 2 L/min as instructed as directed. At night sulfamethoxazole-trimethoprim (BACTRIM DS) 800-160 mg per tablet Take 1 tablet by mouth twice daily for 7 days. ALLERGIES: Ciprofloxacin; Gemzar [Gemcitabine Hcl]; Penicillin; Tetracycline PERSONAL HISTORY: SOCIAL HISTORY Social History Marital status: Spouse name: Years of education: Number of children: Social History Main Topics Smoking status: Current Every Day Smoker Packs/day: 1.00 Years: 0.00 Start date: 10/09/1966 Smokeless tobacco: Never Used Alcohol use: No Drug use: No FAMILY HISTORY: - Cancer Mother Cervical, Stroke, hypertension - Cancer Father colon and lung - Cancer Sister appendix - Hypertension Brother REVIEW OF SYSTEMS: Constitutional: Denies episodes of fever and night sweats. Neuro: Denies MITCHELL, vertigo, dizziness and imbalance. Denies symptoms of neuropathy. HEENT: No recent change in voice, vision or hearing. Resp: has shortness of breath upon exertion CVS: Denies exertional chest pain, PND, orthopnea and LE edema. GI: Denies dysgeusia. Denies symptoms of stomatitis. Denies dysphagia and odynophagia. : Denies dysuria or gross hematuria. No symptoms of bladder outlet obstruction. Endo: Denies hot flashes. Denies polyuria and polydipsia. Denies heat and cold intolerance. Musculoskeletal: Denies bone, back, joint and muscular pain. Derm: Denies rash. Denies jaundice and diffuse pruritis. Heme: Denies unusual bleeding and unexplained bruising. Psych: Normal mood. PHYSICAL EXAMINATION: General: The patient is 77 year old male, well nourished, well hydrated in no acute distress. The patient is oriented to time, place, and person. Strong odor of cigarettes VITALS: Blood pressure 144/72, pulse 80, height 172.7 cm (5' 8), weight 55.3 kg (122 lb). Body mass index is 18.55 kg/m?. HEENT: Normal cephalic, ataumatic, pupils are equally round, sclera are anicteric. Wearing glasses. Mucous membranes are moist, oropharynx is clear. Neck has no masses, asymmetry or lymphadenopathy. Thyroid is unremarkable. Respiratory: Coarse breath sounds bibasilarly consistent with tobacco use. Normal respiratory excursion and pattern. Cardiac: Examination is regular rate and rhythm. Abdominal exam: Soft, nontender, with no palpable masses. No hepatosplenomegaly. A moderate reducible right inguinal hernia, no left inguinal, a small umbilical hernia. Well-healed Chevron incision without signs of herniation. Rectal exam: exam deferred Extremities: no clubbing, cyanosis or edema. No adenopathy. IMPRESSION: right inguinal hernia, umbilical hernia, tobacco use, history of pancreatic cancer PLAN: I have discussed above with patient and his who is present with him. I have explained to them that TOB use inhibits healing and increases risk of infection. Thus patient has high risk of infection after surgery and recurrence of hernia. Despite this, patient wishes to proceed, as he exhibits no interest in discontinuing his smoking habit. I have explained to them the procedure to be done. I have counseled them as to the risks of surgery, including but not limited to: infection, bleeding, injury to any blood vessels/nerves, scar tissue, chronic groin pain, recurrence of hernia, infection of mesh, wound infections, intraabdominal abscess/bleeding, injury to the spermatic cord and/or testicle, complications of anesthesia such as TN/CVA/PE/pneumonia/aspiration, etc. - they understand. The patient wishes to proceed. Patient is scheduled for surgery at [facility] On 11/20/17. Diagnoses: (K40.90) Right inguinal hernia (primary encounter diagnosis) (C25.9) Malignant neoplasm of pancreas, unspecified location of malignancy (HCC) (Z72.0) Tobacco use Return to Clinic: The patient is instructed to follow-up with me after surgery. Amanda Santana MD CNOV Observed: 11/16/2017 Status: COMPLETED Source: [place] 10:10 AM [facility] REPOSITORY Office Visit (GENSWS) FRANCISCAELBERT JUAN ([id number]) 1940 [place] Date Time Provider Department 11/16/17 10:10 AM BALBINA RIVERA During your visit today, we recorded the following information about you: Pulse Blood pressure Weight 80/minute 144/72 55.3 kg Balbina Rivera MD 11/17/2017 9:12 PM Signed Elbert Espinosa 1940 REFERRING PHYSICIAN: Samina Sanchez, * CHIEF COMPLAINT: Umbilical hernia, right inguinal hernia HPI: Elbert is a 77 year old male with a complaint of a bulge and discomfort in his right inguinal region and umbilical region. The patient notes discomfort in this area with lifting and coughing. The symptoms have increased, over the past months. The patient notes no symptoms of bowel obstruction and denies nausea or vomiting. The patient was seen by Dr. Leandro Joy who felt the patient has a hernia. Elbert was referred for evaluation and treatment. The patient notes his inguinal hernia prevents him from walking or doing his daily activities. He states his umbilical hernia does not really bother her much. The patient had an open Whipple operation performed in [place] December 2016 for pancreatic cancer. 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 He has a diagnosis of COPD and continues to smoke. The patient also notes a history of a bowel resection of unknown location in 2003. Has had 50 pound weight loss with his pancreatic cancer treatment. PAST MEDICAL HISTORY - history of Pancreatic cancer (HCC) PAST SURGICAL HISTORY - APPENDECTOMY HX - CHOLECYSTECTOMY HX - COLON SURGERY HX - PAST SURGICAL HISTORY OF 01/24/2017 Whipple procedure - PORTOCATH PLACEMENT CURRENT MEDICATIONS Omeprazole 40 mg capsule Take 40 mg by mouth once daily. hwhqyk-genebypl-awtjfub (CREON) 12,000-38,000 -60,000 unit cpDR Take by mouth three times daily with meals. mometasone-formoterol (DULERA) 200-5 mcg/actuation inhaler Inhale 2 Puffs as instructed once daily. loperamide (IMODIUM) 2 mg cap(s) Take 2 mg by mouth three times daily. Taking 2 tabs TID OXYGEN, HOME THERAPY, Inhale 2 L/min as instructed as directed. At night sulfamethoxazole-trimethoprim (BACTRIM DS) 800-160 mg per tablet Take 1 tablet by mouth twice daily for 7 days. ALLERGIES: Ciprofloxacin; Gemzar [Gemcitabine Hcl]; Penicillin; Tetracycline PERSONAL HISTORY: SOCIAL HISTORY Social History Marital status: Spouse name: Years of education: Number of children: Social History Main Topics Smoking status: Current Every Day Smoker Packs/day: 1.00 Years: 0.00 Start date: 10/09/1966 Smokeless tobacco: Never Used Alcohol use: No Drug use: No FAMILY HISTORY: - Cancer Mother Cervical, Stroke, hypertension - Cancer Father colon and lung - Cancer Sister appendix - Hypertension Brother REVIEW OF SYSTEMS: Constitutional: Denies episodes of fever and night sweats. Neuro: Denies MITCHELL, vertigo, dizziness and imbalance. Denies symptoms of neuropathy. HEENT: No recent change in voice, vision or hearing. Resp: has shortness of breath upon exertion CVS: Denies exertional chest pain, PND, orthopnea and LE edema. GI: Denies dysgeusia. Denies symptoms of stomatitis. Denies dysphagia and odynophagia. : Denies dysuria or gross hematuria. No symptoms of bladder outlet obstruction. Endo: Denies hot flashes. Denies polyuria and polydipsia. Denies heat and cold intolerance. Musculoskeletal: Denies bone, back, joint and muscular pain. Derm: Denies rash. Denies jaundice and diffuse pruritis. Heme: Denies unusual bleeding and unexplained bruising. Psych: Normal mood. PHYSICAL EXAMINATION: General: The patient is 77 year old male, well nourished, well hydrated in no acute distress. The patient is oriented to time, place, and person. Strong odor of cigarettes VITALS: Blood pressure 144/72, pulse 80, height 172.7 cm (5' 8), weight 55.3 kg (122 lb). Body mass index is 18.55 kg/m?. HEENT: Normal cephalic, ataumatic, pupils are equally round, sclera are anicteric. Wearing glasses. Mucous membranes are moist, oropharynx is clear. Neck has no masses, asymmetry or lymphadenopathy. Thyroid is unremarkable. Respiratory: Coarse breath sounds bibasilarly consistent with tobacco use. Normal respiratory excursion and pattern. Cardiac: Examination is regular rate and rhythm. Abdominal exam: Soft, nontender, with no palpable masses. No hepatosplenomegaly. A moderate reducible right inguinal hernia, no left inguinal, a small umbilical hernia. Well-healed Chevron incision without signs of herniation. Rectal exam: exam deferred Extremities: no clubbing, cyanosis or edema. No adenopathy. IMPRESSION: right inguinal hernia, umbilical hernia, tobacco use, history of pancreatic cancer PLAN: I have discussed above with patient and his who is present with him. I have explained to them that TOB use inhibits healing and increases risk of infection. Thus patient has high risk of infection after surgery and recurrence of hernia. Despite this, patient wishes to proceed, as he exhibits no interest in discontinuing his smoking habit. I have explained to them the procedure to be done. I have counseled them as to the risks of surgery, including but not limited to: infection, bleeding, injury to any blood vessels/nerves, scar tissue, chronic groin pain, recurrence of hernia, infection of mesh, wound infections, intraabdominal abscess/bleeding, injury to the spermatic cord and/or testicle, complications of anesthesia such as TN/CVA/PE/pneumonia/aspiration, etc. - they understand. The patient wishes to proceed. Patient is scheduled for surgery at [facility] On 11/20/17. Diagnoses: (K40.90) Right inguinal hernia (primary encounter diagnosis) (C25.9) Malignant neoplasm of pancreas, unspecified location of malignancy (HCC) (Z72.0) Tobacco use Return to Clinic: The patient is instructed to follow-up with me after surgery. Amanda Santana MD Referring Provider: SAMINA SANCHEZ [[id number]] Allergies As of Date: 11/16/2017 Noted Allergy Reaction CIPROFLOXACIN 10/09/2017 4 - Hives GEMZAR (GEMCITABINE HCL) 10/09/2017 14 - Other: See Comments Comments: Pseudo cellulitis PENICILLIN 10/09/2017 4 - Hives TETRACYCLINE 10/09/2017 9 - Itching Date Reviewed: 11/16/2017 Reviewed by: Balbina Rivera - Fully Assessed Reason for Visit: discuss hernia [Other] Primary Visit Diagnosis:Right inguinal hernia [K40.90] Other Visit Diagnoses:Umbilical hernia without obstruction or gangrene [K42.9] Tobacco use [Z72.0] Prescriptions as of 11/16/2017 Sig: SULFAMETHOXAZOLE 800 MG-TRIME* Take 1 tablet by mouth twice * OMEPRAZOLE 40 MG CAPSULE,MUSA* Take 40 mg by mouth once edwin* DZEHBK-AGHKGBDI-OZJKITQ 12,00* Take by mouth three times adama* MOMETASONE-FORMOTEROL HFA 200* Inhale 2 Puffs as instructed * LOPERAMIDE 2 MG CAPSULE Take 2 mg by mouth three time* OXYGEN (HOME THERAPY) Inhale 2 L/min as instructed * Problem List As Of Date 11/16/2017 Noted Resolved Malignant neoplasm of head of pancreas (HCC) [C*INVALID FOR* Diarrhea due to malabsorption [K90.9, R19.7] INVALID FOR* Inguinal hernia [K40.90] INVALID FOR* More... Encounter Status:Closed by MD BALBINA RIVERA on 11/17/17 HOSP Observed: 11/16/2017 Status: COMPLETED Source: [place] 12:00 AM [facility] REPOSITORY Patient:Elbert Espinosa MRN: <[id number]> Height:5' 8(1.727 m) Weight:124 lb (56.246 kg) Outpatient Medications as of 11/27/17: sulfamethoxazole-trimethoprim (BACTRIM DS) 800-160 mg per tablet Omeprazole 40 mg capsule bancux-jtaoretk-mphxiss (CREON) 12,000-38,000 -60,000 unit cpDR mometasone-formoterol (DULERA) 200-5 mcg/actuation inhaler loperamide (IMODIUM) 2 mg cap(s) OXYGEN, HOME THERAPY, Admission/Clinic Administered Medications as of 11/27/17: lidocaine 10 mg/mL (1 %) 1-2 mg injection (XYLOCAINE) lactated ringers infusion Problem List: Malignant neoplasm of head of pancreas (HCC) [C25.0] Diarrhea due to malabsorption [K90.9, R19.7] Inguinal hernia [K40.90] Allergies: Ciprofloxacin Gemzar [Gemcitabine Hcl] Penicillin Tetracycline Date Verified: 11/27/17 Lab Values No results within the last 30 days for the following basenames: K,HCT Progress Notes ([facility]): Geoffrey Florence 11/16/2017 4:04 PM Signed 11-20-2017 Hernia Bone Gap Geoffrey Mills LPN 11/19/2017 9:48 AM Signed Per [facility], patient will need medical clearance from PCP prior to hernia repair. Contacted Dr. Fernandez office and form faxed. He is out until tomorrow. Patient aware date changed to 11/27/17 but would still would like contacted today with more information as we get it. Geoffrey Florence 11/23/2017 10:43 AM Signed Received medical clearance form PCP. Scanned into MR, and sent copy to Camilo Florence Progress Notes ([facility]): Balbina Rivera MD 11/17/2017 9:12 PM Signed Elbert Espinosa 1940 REFERRING PHYSICIAN: Samina Sanchez, * CHIEF COMPLAINT: Umbilical hernia, right inguinal hernia HPI: Elbert is a 77 year old male with a complaint of a bulge and discomfort in his right inguinal region and umbilical region. The patient notes discomfort in this area with lifting and coughing. The symptoms have increased, over the past months. The patient notes no symptoms of bowel obstruction and denies nausea or vomiting. The patient was seen by Dr. Leandro Joy who felt the patient has a hernia. Elbert was referred for evaluation and treatment. The patient notes his inguinal hernia prevents him from walking or doing his daily activities. He states his umbilical hernia does not really bother her much. The patient had an open Whipple operation performed in [place] December 2016 for pancreatic cancer. 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 He has a diagnosis of COPD and continues to smoke. The patient also notes a history of a bowel resection of unknown location in 2003. Has had 50 pound weight loss with his pancreatic cancer treatment. PAST MEDICAL HISTORY - history of Pancreatic cancer (HCC) PAST SURGICAL HISTORY - APPENDECTOMY HX - CHOLECYSTECTOMY HX - COLON SURGERY HX - PAST SURGICAL HISTORY OF 01/24/2017 Whipple procedure - PORTOCATH PLACEMENT CURRENT MEDICATIONS Omeprazole 40 mg capsule Take 40 mg by mouth once daily. dvrmae-xemvmqbm-xajrccy (CREON) 12,000-38,000 -60,000 unit cpDR Take by mouth three times daily with meals. mometasone-formoterol (DULERA) 200-5 mcg/actuation inhaler Inhale 2 Puffs as instructed once daily. loperamide (IMODIUM) 2 mg cap(s) Take 2 mg by mouth three times daily. Taking 2 tabs TID OXYGEN, HOME THERAPY, Inhale 2 L/min as instructed as directed. At night sulfamethoxazole-trimethoprim (BACTRIM DS) 800-160 mg per tablet Take 1 tablet by mouth twice daily for 7 days. ALLERGIES: Ciprofloxacin; Gemzar [Gemcitabine Hcl]; Penicillin; Tetracycline PERSONAL HISTORY: SOCIAL HISTORY Social History Marital status: Spouse name: Years of education: Number of children: Social History Main Topics Smoking status: Current Every Day Smoker Packs/day: 1.00 Years: 0.00 Start date: 10/09/1966 Smokeless tobacco: Never Used Alcohol use: No Drug use: No FAMILY HISTORY: - Cancer Mother Cervical, Stroke, hypertension - Cancer Father colon and lung - Cancer Sister appendix - Hypertension Brother REVIEW OF SYSTEMS: Constitutional: Denies episodes of fever and night sweats. Neuro: Denies MITCHELL, vertigo, dizziness and imbalance. Denies symptoms of neuropathy. HEENT: No recent change in voice, vision or hearing. Resp: has shortness of breath upon exertion CVS: Denies exertional chest pain, PND, orthopnea and LE edema. GI: Denies dysgeusia. Denies symptoms of stomatitis. Denies dysphagia and odynophagia. : Denies dysuria or gross hematuria. No symptoms of bladder outlet obstruction. Endo: Denies hot flashes. Denies polyuria and polydipsia. Denies heat and cold intolerance. Musculoskeletal: Denies bone, back, joint and muscular pain. Derm: Denies rash. Denies jaundice and diffuse pruritis. Heme: Denies unusual bleeding and unexplained bruising. Psych: Normal mood. PHYSICAL EXAMINATION: General: The patient is 77 year old male, well nourished, well hydrated in no acute distress. The patient is oriented to time, place, and person. Strong odor of cigarettes VITALS: Blood pressure 144/72, pulse 80, height 172.7 cm (5' 8), weight 55.3 kg (122 lb). Body mass index is 18.55 kg/m?. HEENT: Normal cephalic, ataumatic, pupils are equally round, sclera are anicteric. Wearing glasses. Mucous membranes are moist, oropharynx is clear. Neck has no masses, asymmetry or lymphadenopathy. Thyroid is unremarkable. Respiratory: Coarse breath sounds bibasilarly consistent with tobacco use. Normal respiratory excursion and pattern. Cardiac: Examination is regular rate and rhythm. Abdominal exam: Soft, nontender, with no palpable masses. No hepatosplenomegaly. A moderate reducible right inguinal hernia, no left inguinal, a small umbilical hernia. Well-healed Chevron incision without signs of herniation. Rectal exam: exam deferred Extremities: no clubbing, cyanosis or edema. No adenopathy. IMPRESSION: right inguinal hernia, umbilical hernia, tobacco use, history of pancreatic cancer PLAN: I have discussed above with patient and his who is present with him. I have explained to them that TOB use inhibits healing and increases risk of infection. Thus patient has high risk of infection after surgery and recurrence of hernia. Despite this, patient wishes to proceed, as he exhibits no interest in discontinuing his smoking habit. I have explained to them the procedure to be done. I have counseled them as to the risks of surgery, including but not limited to: infection, bleeding, injury to any blood vessels/nerves, scar tissue, chronic groin pain, recurrence of hernia, infection of mesh, wound infections, intraabdominal abscess/bleeding, injury to the spermatic cord and/or testicle, complications of anesthesia such as TN/CVA/PE/pneumonia/aspiration, etc. - they understand. The patient wishes to proceed. Patient is scheduled for surgery at [facility] On 11/20/17. Diagnoses: (K40.90) Right inguinal hernia (primary encounter diagnosis) (C25.9) Malignant neoplasm of pancreas, unspecified location of malignancy (HCC) (Z72.0) Tobacco use Return to Clinic: The patient is instructed to follow-up with me after surgery. Amanda Santana MD PROGRESS Observed: 11/15/2017 Status: COMPLETED Source: [place] 5:03 PM [facility] REPOSITORY HNO ID: [id number] Author: Amanda Santana Service: (none) Author Type: Physician Type: Progress Notes Filed: 11/15/2017 5:14 PM Note Text: HISTORY AND PHYSICAL Elbert Espinosa 1940 REFERRING PHYSICIAN: Samina Sanchez, * CHIEF COMPLAINT: Consult (Consult Bilateral InguinalHernia ) HPI: Elbert is a 77 year old male with a complaint of a bulge and discomfort in his right inguinal region and umbilical region. The patient notes discomfort in this area with lifting and coughing. The symptoms have increased, over the past months. The patient notes no symptoms of bowel obstruction and denies nausea or vomiting. The patient was seen by Dr. Leandro Joy who felt the patient has a hernia. Elbert was referred for evaluation and treatment. The patient notes his inguinal hernia prevents him from walking or doing his daily activities. He states his umbilical hernia does not really bother her much. The patient had an open Whipple operation performed in [place] December 2016 for pancreatic cancer. 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 He has a diagnosis of COPD and continues to smoke. The patient also notes a history of a bowel resection of unknown location in 2003. The patient is being seen by me today at the request of Dr. Sanchez for my opinion and advice regarding right inguinal hernia repair. PAST MEDICAL HISTORY Diagnosis Date - Pancreatic cancer (HCC) PAST SURGICAL HISTORY Procedure Laterality Date - APPENDECTOMY HX - CHOLECYSTECTOMY HX - COLON SURGERY HX - PAST SURGICAL HISTORY OF 01/24/2017 Whipple procedure - PORTOCATH PLACEMENT Current Outpatient Prescriptions: Omeprazole 40 mg capsule Take 40 mg by mouth once daily. igaypu-ufdfgeza-eyckmye (CREON) 12,000-38,000 -60,000 unit cpDR Take by mouth three times daily with meals. mometasone-formoterol (DULERA) 200-5 mcg/actuation inhaler Inhale 2 Puffs as instructed once daily. loperamide (IMODIUM) 2 mg cap(s) Take 2 mg by mouth three times daily. Taking 2 tabs TID OXYGEN, HOME THERAPY, Inhale 2 L/min as instructed as directed. At night sulfamethoxazole-trimethoprim (BACTRIM DS) 800-160 mg per tablet Take 1 tablet by mouth twice daily for 7 days. No current facility-administered medications for this visit. ALLERGIES: Ciprofloxacin; Gemzar [Gemcitabine Hcl]; Penicillin; Tetracycline PERSONAL HISTORY: Social History Marital status: Spouse name: Years of education: Number of children: Social History Main Topics Smoking status: Current Every Day Smoker Packs/day: 1.00 Years: 0.00 Start date: 10/09/1966 Smokeless tobacco: Never Used Alcohol use: No Drug use: No FAMILY HISTORY: FAMILY HISTORY Problem Relation Age of Onset - Cancer Mother cervical - Stroke Mother - Hypertension Mother - Cancer Father colon and lung - Cancer Sister appendix - Hypertension Brother REVIEW OF SYMPTOMS: The review of systems data was entered by the nurse and reviewed by me There are no exam notes on file for this visit. PHYSICAL EXAMINATION: General: The patient is 77 year old male, well nourished, well hydrated in no acute distress. The patient is oriented to time, place, and person. VITALS: Blood pressure 144/72, pulse 80, height 172.7 cm (5' 8), weight 55.3 kg (122 lb). Body mass index is 18.55 kg/m?. HEENT: Normal cephalic, ataumatic, pupils are equally round, sclera are anicteric, mucous membranes are moist, oropharynx is clear. Neck has no masses, asymmetry or lymphadenopathy. Thyroid is unremarkable. Respiratory: Coarse breath sounds bibasilarly consistent with tobacco use. Normal respiratory excursion and pattern. Cardiac: Examination is regular rate and rhythm. Abdominal exam: Soft, nontender, with no palpable masses. No hepatosplenomegaly. A moderate reducible right inguinal hernia, no left inguinal, a small umbilical hernia. Well-healed Chevron incision without signs of herniation. Rectal exam: exam deferred Extremities: no clubbing, cyanosis or edema. No adenopathy. Other: LABORATORY VALUES: As Noted RADIOLOGIC STUDIES: As Noted Assessment IMPRESSION: right inguinal hernia, umbilical hernia, tobacco use, history of pancreatic cancer, history of bowel resection? PLAN: My plan is to perform a open right inguinal hernia repair with mesh. The planned surgical procedure was discussed extensively with the patient. The risks, benefits, anticipated outcomes and possible complications were mentioned. Elbert rayands that all hernia repair surgery has a chance of recurrence and/or chronic post operative pain. My staff has also explained the procedure in understandable terms and the patient was given the option to take printed material concerning the planned procedure. The patient had the opportunity to ask questions concerning the planned procedure. The patient freely consents to the planned procedure. All tobacco/nicotine use needs to be completely stopped at least 4 weeks prior to surgery and not used in any form for 8 weeks following surgery due to nicotine's prevention of appropriate wound healing. I explained the rationale for stopping nicotine. We discussed this for at least 20 minutes. The patient became unhappy. His expectation was the hernia be repaired today or tomorrow. I informed him that I believe there is an unacceptably high recurrence rate when using nicotine products. I further informed him that if the hernia did recur, with previous bowel resection and a previous Whipple operation that attempts to repair it a second time laparoscopically would likely be very challenging if not impossible and therefore fixing it properly the first time I believe would be optimal. The was also unhappy with that explanation stating that she had her incisional hernia repaired 3 times and nobody ever told her she had to quit smoking..... I further told him that my operative schedule was completely filled at least through mid November. The patient and his stated they had asked to have the hernia repaired by Dr. Duran or Yin in [place], and they did not accept his insurance. My office contacted Dr. Esqueda office and they in fact do not accept that insurance. I spoke with my partner, Dr. Rivera. She actually is willing to consider hernia repair at least an inguinal hernia in someone who is still smoking. She would like to see the patient back to discuss the risks and benefits with the patient primarily agree to surgery but would likely be willing to do the hernia repair at [facility]. My findings have been communicated to Dr. Sanchez via shared medical record. This note will be forwarded to Dr. Orellana primary care provider on file.. Diagnoses: (K40.90) Right inguinal hernia (primary encounter diagnosis) (C25.9) Malignant neoplasm of pancreas, unspecified location of malignancy (HCC) (Z72.0) Tobacco use Return to Clinic: The patient is instructed to follow-up with Dr. Rivera for consideration of right inguinal hernia repair. Amanda Santana MD CNOV Observed: 11/15/2017 Status: COMPLETED Source: [place] 1:40 PM [facility] REPOSITORY Office Visit (GENSWS) ELBERT ESPINOSA ([id number]) 1940 M Date Time Provider Department 11/15/17 1:40 PM AMANDA SANTANA During your visit today, we recorded the following information about you: Pulse Blood pressure Weight Height 80/minute 144/72 55.3 kg 1.727 m Amanda Santana MD 11/15/2017 5:14 PM Signed HISTORY AND PHYSICAL Elbert Espinosa 1940 REFERRING PHYSICIAN: Samina Sanchez, * CHIEF COMPLAINT: Consult (Consult Bilateral InguinalHernia ) HPI: Elbert is a 77 year old male with a complaint of a bulge and discomfort in his right inguinal region and umbilical region. The patient notes discomfort in this area with lifting and coughing. The symptoms have increased, over the past months. The patient notes no symptoms of bowel obstruction and denies nausea or vomiting. The patient was seen by Dr. Leandro Joy who felt the patient has a hernia. Elbert was referred for evaluation and treatment. The patient notes his inguinal hernia prevents him from walking or doing his daily activities. He states his umbilical hernia does not really bother her much. The patient had an open Whipple operation performed in [place] December 2016 for pancreatic cancer. 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 He has a diagnosis of COPD and continues to smoke. The patient also notes a history of a bowel resection of unknown location in 2003. The patient is being seen by me today at the request of Dr. Sanchez for my opinion and advice regarding right inguinal hernia repair. PAST MEDICAL HISTORY Diagnosis Date - Pancreatic cancer (HCC) PAST SURGICAL HISTORY Procedure Laterality Date - APPENDECTOMY HX - CHOLECYSTECTOMY HX - COLON SURGERY HX - PAST SURGICAL HISTORY OF 01/24/2017 Whipple procedure - PORTOCATH PLACEMENT Current Outpatient Prescriptions: Omeprazole 40 mg capsule Take 40 mg by mouth once daily. jmvhae-ktagysdg-xbansln (CREON) 12,000-38,000 -60,000 unit cpDR Take by mouth three times daily with meals. mometasone-formoterol (DULERA) 200-5 mcg/actuation inhaler Inhale 2 Puffs as instructed once daily. loperamide (IMODIUM) 2 mg cap(s) Take 2 mg by mouth three times daily. Taking 2 tabs TID OXYGEN, HOME THERAPY, Inhale 2 L/min as instructed as directed. At night sulfamethoxazole-trimethoprim (BACTRIM DS) 800-160 mg per tablet Take 1 tablet by mouth twice daily for 7 days. No current facility-administered medications for this visit. ALLERGIES: Ciprofloxacin; Gemzar [Gemcitabine Hcl]; Penicillin; Tetracycline PERSONAL HISTORY: Social History Marital status: Spouse name: Years of education: Number of children: Social History Main Topics Smoking status: Current Every Day Smoker Packs/day: 1.00 Years: 0.00 Start date: 10/09/1966 Smokeless tobacco: Never Used Alcohol use: No Drug use: No FAMILY HISTORY: FAMILY HISTORY Problem Relation Age of Onset - Cancer Mother cervical - Stroke Mother - Hypertension Mother - Cancer Father colon and lung - Cancer Sister appendix - Hypertension Brother REVIEW OF SYMPTOMS: The review of systems data was entered by the nurse and reviewed by me There are no exam notes on file for this visit. PHYSICAL EXAMINATION: General: The patient is 77 year old male, well nourished, well hydrated in no acute distress. The patient is oriented to time, place, and person. VITALS: Blood pressure 144/72, pulse 80, height 172.7 cm (5' 8), weight 55.3 kg (122 lb). Body mass index is 18.55 kg/m?. HEENT: Normal cephalic, ataumatic, pupils are equally round, sclera are anicteric, mucous membranes are moist, oropharynx is clear. Neck has no masses, asymmetry or lymphadenopathy. Thyroid is unremarkable. Respiratory: Coarse breath sounds bibasilarly consistent with tobacco use. Normal respiratory excursion and pattern. Cardiac: Examination is regular rate and rhythm. Abdominal exam: Soft, nontender, with no palpable masses. No hepatosplenomegaly. A moderate reducible right inguinal hernia, no left inguinal, a small umbilical hernia. Well-healed Chevron incision without signs of herniation. Rectal exam: exam deferred Extremities: no clubbing, cyanosis or edema. No adenopathy. Other: LABORATORY VALUES: As Noted RADIOLOGIC STUDIES: As Noted Assessment IMPRESSION: right inguinal hernia, umbilical hernia, tobacco use, history of pancreatic cancer, history of bowel resection? PLAN: My plan is to perform a open right inguinal hernia repair with mesh. The planned surgical procedure was discussed extensively with the patient. The risks, benefits, anticipated outcomes and possible complications were mentioned. Elbert rayands that all hernia repair surgery has a chance of recurrence and/or chronic post operative pain. My staff has also explained the procedure in understandable terms and the patient was given the option to take printed material concerning the planned procedure. The patient had the opportunity to ask questions concerning the planned procedure. The patient freely consents to the planned procedure. All tobacco/nicotine use needs to be completely stopped at least 4 weeks prior to surgery and not used in any form for 8 weeks following surgery due to nicotine's prevention of appropriate wound healing. I explained the rationale for stopping nicotine. We discussed this for at least 20 minutes. The patient became unhappy. His expectation was the hernia be repaired today or tomorrow. I informed him that I believe there is an unacceptably high recurrence rate when using nicotine products. I further informed him that if the hernia did recur, with previous bowel resection and a previous Whipple operation that attempts to repair it a second time laparoscopically would likely be very challenging if not impossible and therefore fixing it properly the first time I believe would be optimal. The was also unhappy with that explanation stating that she had her incisional hernia repaired 3 times and nobody ever told her she had to quit smoking..... I further told him that my operative schedule was completely filled at least through mid November. The patient and his stated they had asked to have the hernia repaired by Dr. Duran or Yin in [place], and they did not accept his insurance. My office contacted Dr. Esqueda office and they in fact do not accept that insurance. I spoke with my partner, Dr. Rivera. She actually is willing to consider hernia repair at least an inguinal hernia in someone who is still smoking. She would like to see the patient back to discuss the risks and benefits with the patient primarily agree to surgery but would likely be willing to do the hernia repair at [facility]. My findings have been communicated to Dr. Sanchez via shared medical record. This note will be forwarded to Dr. Orellana primary care provider on file.. Diagnoses: (K40.90) Right inguinal hernia (primary encounter diagnosis) (C25.9) Malignant neoplasm of pancreas, unspecified location of malignancy (HCC) (Z72.0) Tobacco use Return to Clinic: The patient is instructed to follow-up with Dr. Rivera for consideration of right inguinal hernia repair. MD Alaina Peña LPN 11/16/2017 1:52 PM Signed REVIEW OF SYSTEMS: General: The patient NOTES fatigue, NOTES weight loss, denies weight gain, denies feeling hot, and NOTES feelings of cold. Eyes: The patient denies glaucoma, denies eye injury/surgery, wears glasses or contacts. Ear/Nose/Throat: The patient NOTES allergies, denies hayfever, notes ear infections, and denies bloody noses. Cardiovascular: The patient denies chest pain, denies heart disease, denies high blood pressure,denies cardiac stent, denies prior heart attack, denies irregular heart beat, denies high cholesterol, denies poor circulation, denies heart failure, other cardiac issues, denies claudication, denies cold feet, denies peripheral arterial stent. Respiratory: The patient denies tuberculosis, denies pneumonia, denies frequent cough, denies pulmonary embolism, denies shortness of breath, and denies coughing up blood. Gastrointestinal: The patient denies difficulty swallowing, NOTES acid reflux, denies ulcers, denies vomiting, denies jaundice/hepatitis, denies gallbladder problems, denies black or tarry stools, denies hemorrhoids, denies bleeding from rectum, NOTES diverticulitis, denies constipation, NOTES diarrhea, denies loss of stool control, and NOTES hernias. Kidney/Bladder: The patient denies kidney stones, denies urine infections, and denies bloody urine. Skin: The patient NOTES a history of skin cancer, denies bleeding/changing moles, and denies a history of skin rash. Neurologic: The patient denies a history of epilepsy/convulsions, denies headaches, denies head/spinal injuries, and denies stroke/TIA. Psychiatric: The patient denies psychiatric medications, denies depression, and denies voices, denies substance abuse. Endocrine: The patient denies thyroid disorders, denies diabetes, and denies hormonal problems. Hematologic: The patient denies a history of bruising, denies bleeding, and denies anemia, denies blood clots. Infections: The patient NOTES a history of measles and mumps, denies rheumatic fever, and denies sexually transmitted diseases. Musculoskeletal: The patient denies back pain/injury, denies back problems, denies sciatica, denies knee/foot trouble, NOTES arthritis, or denies gout. When was patient's last Mammogram screening? N/A Last Colonoscopy: NONE Alaina Mills LPN Referring Provider: SAMINA SANCHEZ [[id number]] Allergies As of Date: 11/15/2017 Noted Allergy Reaction CIPROFLOXACIN 10/09/2017 4 - Hives GEMZAR (GEMCITABINE HCL) 10/09/2017 14 - Other: See Comments Comments: Pseudo cellulitis PENICILLIN 10/09/2017 4 - Hives TETRACYCLINE 10/09/2017 9 - Itching Date Reviewed: 11/15/2017 Reviewed by: Amanda Santana - Fully Assessed Reason for Visit: Consult [173] Cmt: Consult Bilateral InguinalHernia Primary Visit Diagnosis:Right inguinal hernia [K40.90] Other Visit Diagnoses:Malignant neoplasm of pancreas, unspecified location of malignancy (HCC) [C25.9] Tobacco use [Z72.0] Chronic obstructive pulmonary disease, unspecified COPD type (HCC) [J44.9] Prescriptions as of 11/15/2017 Sig: OMEPRAZOLE 40 MG CAPSULE,MUSA* Take 40 mg by mouth once edwin* RSCIZE-BUPMVREU-CZUEQLS 12,00* Take by mouth three times adama* MOMETASONE-FORMOTEROL HFA 200* Inhale 2 Puffs as instructed * LOPERAMIDE 2 MG CAPSULE Take 2 mg by mouth three time* OXYGEN (HOME THERAPY) Inhale 2 L/min as instructed * SULFAMETHOXAZOLE 800 MG-TRIME* Take 1 tablet by mouth twice * Problem List As Of Date 11/15/2017 Noted Resolved Malignant neoplasm of head of pancreas (HCC) [C*INVALID FOR* Diarrhea due to malabsorption [K90.9, R19.7] INVALID FOR* Visit Notes: >> Alaina Mills LPN SunNov 16, 2017 1:49 PM Status: Signed REVIEW OF SYSTEMS: General: The patient NOTES fatigue, NOTES weight loss, denies weight gain, denies feeling hot, and NOTES feelings of cold. Eyes: The patient denies glaucoma, denies eye injury/surgery, wears glasses or contacts. Ear/Nose/Throat: The patient NOTES allergies, denies hayfever, notes ear infections, and denies bloody noses. Cardiovascular: The patient denies chest pain, denies heart disease, denies high blood pressure,denies cardiac stent, denies prior heart attack, denies irregular heart beat, denies high cholesterol, denies poor circulation, denies heart failure, other cardiac issues, denies claudication, denies cold feet, denies peripheral arterial stent. Respiratory: The patient denies tuberculosis, denies pneumonia, denies frequent cough, denies pulmonary embolism, denies shortness of breath, and denies coughing up blood. Gastrointestinal: The patient denies difficulty swallowing, NOTES acid reflux, denies ulcers, denies vomiting, denies jaundice/hepatitis, denies gallbladder problems, denies black or tarry stools, denies hemorrhoids, denies bleeding from rectum, NOTES diverticulitis, denies constipation, NOTES diarrhea, denies loss of stool control, and NOTES hernias. Kidney/Bladder: The patient denies kidney stones, denies urine infections, and denies bloody urine. Skin: The patient NOTES a history of skin cancer, denies bleeding/changing moles, and denies a history of skin rash. Neurologic: The patient denies a history of epilepsy/convulsions, denies headaches, denies head/spinal injuries, and denies stroke/TIA. Psychiatric: The patient denies psychiatric medications, denies depression, and denies voices, denies substance abuse. Endocrine: The patient denies thyroid disorders, denies diabetes, and denies hormonal problems. Hematologic: The patient denies a history of bruising, denies bleeding, and denies anemia, denies blood clots. Infections: The patient NOTES a history of measles and mumps, denies rheumatic fever, and denies sexually transmitted diseases. Musculoskeletal: The patient denies back pain/injury, denies back problems, denies sciatica, denies knee/foot trouble, NOTES arthritis, or denies gout. When was patient's last Mammogram screening? N/A Last Colonoscopy: NONE Alaina Mills LPN Follow-up and Disposition History Recorded Letter Text Encounter Status:Closed by AMANDA SANTANA MD on 11/15/17 HEMOGLOBIN A1C Collected: 11/12/2017 Status: F Source: [place] 4:33 PM [facility] REPOSITORY TYPE CODE TESTS RESULT OUT OF REFERENCE UNITS RANGE LAB HGBA1C 4.3-5.6 % High Hemoglobin A1c 5.9 LAB HBA0 mg/dL Est. Average Glucose 123 Result Comment: eAG: (Estimated average glucose) is a calculated value from HgbA1c and is agricultural sales representative of the average blood glucose level in the last 2-3 month period. Performed By: #### HBA1C #### [facility] [address], [place] [address] PROGRESS Observed: 11/12/2017 Status: COMPLETED Source: [place] 3:58 PM [facility] REPOSITORY HNO ID: [id number] Author: Leandro Joy Service: (none) Author Type: Physician Type: Progress Notes Filed: 11/12/2017 4:24 PM Note Text: Diagnosis: 1) pT2 pN2 M0 stage III adenocarcinoma of the pancreas HPI: The patient is a 77-year-old male who has a past medical history significant for COPD (Dulera and uses oxygen at night) and pancreas cancer. Per records from [facility]: Pancreatic cancer (adenocarcinoma), involving pancreatic head and uncinate process, 2.1 cm, stage 1B (T2-N0-M0), borderline resectable, with involvement of lateral wall of portal vein. Baseline CA19- 9 level elevated at 354. He was evaluated [...] completion of chemoradiation therapy for 3 months. ? He is s/p weekly 5FU from 05/08/17 [...] willing to take that risk. In view of his decision, I will plan to continue to observe him with repeat labs and CT scan in about 3 months. He and his voiced understanding. He was encouraged to call the clinic with any other questions or concern. Most recent evaluation in July 2017-- CT C/A/P 08/13/2017: 1.??Postoperative changes are again noted. 2.??No evidence of significant lymphadenopathy or other abnormal mass. 3.??Extensive pulmonary emphysema again noted. Patient describes the skin reaction to gemcitabine as cellulitis of the right and left LE with right worse than left. Also had intense itching up the back. Had rash and exacerbation with infusional 5FU. Previous OV: Good appetite. No nausea. Taking 1 Creon and 1 Imodium tablet every meal. Chronic diarrhea. Lower abdominal pain chronically--comes and goes. Mostly hurts in the morning then partially relieved with BM. Diarrhea was worse when tried 2 Creon tablets. Smokes about 1/2 ppd. Stays active--enjoys yard work. Not limited by dyspnea. Cough without much sputum production. Has a lot of sinus drainage when outside. Presents for ongoing oncologic management. Interim history: He offers no complaints today. His appetite is doing very well and is eating a wide variety of foods. He tries to avoid greasy foods as he is fully noticed a increases diarrhea. Increasing Creon dose didn't help whole lot. His wonders about him possibly developing diabetes and that leading to difficulty maintaining weight. Nonfasting recent blood sugar was 136 mg/dL. His only other complaint is that of her right inguinal hernia. This started several months ago but recently has gotten tender when he is walking. His PCP has made a referral to Dr. Santana. PMH, medications and allergies personally reviewed by me today. Any changes documented in appropriate section. ROS: Constitutional: Denies episodes of fever and night sweats. Neuro: Denies MITCHELL, vertigo, dizziness and imbalance. Denies symptoms of neuropathy. HEENT: No recent change in voice, vision or hearing. Resp: See above. CVS: Denies exertional chest pain, PND, orthopnea and LE edema. GI: Denies dysgeusia. Denies symptoms of stomatitis. Denies dysphagia and odynophagia. : Denies dysuria or gross hematuria. No symptoms of bladder outlet obstruction. Endo: Denies hot flashes. Denies polyuria and polydipsia. Denies heat and cold intolerance. Musculoskeletal: Denies bone, back, joint and muscular pain. Derm: Denies rash. Denies jaundice and diffuse pruritis. Heme: Denies unusual bleeding and unexplained bruising. Psych: Normal mood. PHYSICAL EXAM: Vitals: Blood pressure 152/72, pulse 68, temperature 37.3 ?C (99.1 ?F), temperature source Temporal Artery, weight 55.3 kg (122 lb). Well-appearing and in no acute distress. EYES: Sclerae are anicteric bilaterally. ENT: Oral mucosa is unremarkable. There is no sign of thrush or mucositis. NECK: Supple. No enlargement of thyroid. LYMPHATIC: There is no palpable cervical, supraclavicular, axillary or inguinal adenopathy. RESPIRATORY: Inspiratory breath sounds are of very diminished intensity in all bullock. No rales, wheezes or rhonchi. CARDIOVASCULAR: Rhythm is regular. Normal intensity S1/S2. There is no gallop or murmur. ABDOMEN: The abdomen is nondistended. No organomegaly. No tenderness. Small periumbilical hernia--stable nontender. Reducible right inguinal hernia. Extremities: No swelling or edema. SKIN: No jaundice or rash. No petechiae. NEUROLOGIC: line ordering clinician II-XII are grossly intact. No focal motor weakness. MUSCULOSKELETAL: No muscle wasting. ASSESSMENT/PLAN: (C25.0) Malignant neoplasm of head of pancreas (HCC) (primary encounter diagnosis) Assessment: -pT2 pN2 M0 stage III adenocarcinoma of the pancreas. -Staging previously completed in the problem list. -Agreed with plan for surveillance consisting of labs/tumor marker and CT scans every 3-4 months for the first 2 years after surgery then potentially every 6 months thereafter up to 5 years. Insurance company denied every 3 months scans. Fortunately the most recent CA-19-9 was down to 36. Plan: -Labs and CT scan in about 3-4 months. Leandro Joy DO CNOVSP Observed: 11/12/2017 Status: COMPLETED Source: [place] 3:50 PM [facility] REPOSITORY Visit (SP) Office (KATHERINE) ELBERT ESPINOSA ([id number]) 1940 M Date Time Provider Department 11/12/17 3:50 PM LEANDRO JOY During your visit today, we recorded the following information about you: Temperature Pulse Blood pressure Weight 99.1 degrees 68/minute 152/72 55.3 kg Teetee Patel DEEPAK 11/12/2017 4:01 PM Signed Est patient. One month office visit. Discuss recent labs. Teetee Jorge Joy DO 11/12/2017 4:24 PM Signed Diagnosis: 1) pT2 pN2 M0 stage III adenocarcinoma of the pancreas HPI: The patient is a 77-year-old male who has a past medical history significant for COPD (Dulera and uses oxygen at night) and pancreas cancer. Per records from [facility]: Pancreatic cancer (adenocarcinoma), involving pancreatic head and uncinate process, 2.1 cm, stage 1B (T2-N0-M0), borderline resectable, with involvement of lateral wall [...] per day for 3 weeks then between 1- 2 weeks after completion of chemotherapy, chemoradiation was initiated with 50.4 Gy of radiation with continuous infusion of 250 (225mg) mg per sq m 5-FU daily throughout the radiation therapy, and another phase of chemotherapy was initiated 3-5 weeks after completion of chemoradiation therapy for 3 months. ? He is s/p weekly 5FU from 05/08/17 [...] willing to take that risk. In view of his decision, I will plan to continue to observe him with repeat labs and CT scan in about 3 months. He and his voiced understanding. He was encouraged to call the clinic with any other questions or concern. Most recent evaluation in July 2017-- CT C/A/P 08/13/2017: 1.??Postoperative changes are again noted. 2.??No evidence of significant lymphadenopathy or other abnormal mass. 3.??Extensive pulmonary emphysema again noted. Patient describes the skin reaction to gemcitabine as cellulitis of the right and left LE with right worse than left. Also had intense itching up the back. Had rash and exacerbation with infusional 5FU. Previous OV: Good appetite. No nausea. Taking 1 Creon and 1 Imodium tablet every meal. Chronic diarrhea. Lower abdominal pain chronically--comes and goes. Mostly hurts in the morning then partially relieved with BM. Diarrhea was worse when tried 2 Creon tablets. Smokes about 1/2 ppd. Stays active--enjoys yard work. Not limited by dyspnea. Cough without much sputum production. Has a lot of sinus drainage when outside. Presents for ongoing oncologic management. Interim history: He offers no complaints today. His appetite is doing very well and is eating a wide variety of foods. He tries to avoid greasy foods as he is fully noticed a increases diarrhea. Increasing Creon dose didn't help whole lot. His wonders about him possibly developing diabetes and that leading to difficulty maintaining weight. Nonfasting recent blood sugar was 136 mg/dL. His only other complaint is that of her right inguinal hernia. This started several months ago but recently has gotten tender when he is walking. His PCP has made a referral to Dr. Santana. PMH, medications and allergies personally reviewed by me today. Any changes documented in appropriate section. ROS: Constitutional: Denies episodes of fever and night sweats. Neuro: Denies MITCHELL, vertigo, dizziness and imbalance. Denies symptoms of neuropathy. HEENT: No recent change in voice, vision or hearing. Resp: See above. CVS: Denies exertional chest pain, PND, orthopnea and LE edema. GI: Denies dysgeusia. Denies symptoms of stomatitis. Denies dysphagia and odynophagia. : Denies dysuria or gross hematuria. No symptoms of bladder outlet obstruction. Endo: Denies hot flashes. Denies polyuria and polydipsia. Denies heat and cold intolerance. Musculoskeletal: Denies bone, back, joint and muscular pain. Derm: Denies rash. Denies jaundice and diffuse pruritis. Heme: Denies unusual bleeding and unexplained bruising. Psych: Normal mood. PHYSICAL EXAM: Vitals: Blood pressure 152/72, pulse 68, temperature 37.3 ?C (99.1 ?F), temperature source Temporal Artery, weight 55.3 kg (122 lb). Well-appearing and in no acute distress. EYES: Sclerae are anicteric bilaterally. ENT: Oral mucosa is unremarkable. There is no sign of thrush or mucositis. NECK: Supple. No enlargement of thyroid. LYMPHATIC: There is no palpable cervical, supraclavicular, axillary or inguinal adenopathy. RESPIRATORY: Inspiratory breath sounds are of very diminished intensity in all bullock. No rales, wheezes or rhonchi. CARDIOVASCULAR: Rhythm is regular. Normal intensity S1/S2. There is no gallop or murmur. ABDOMEN: The abdomen is nondistended. No organomegaly. No tenderness. Small periumbilical hernia--stable nontender. Reducible right inguinal hernia. Extremities: No swelling or edema. SKIN: No jaundice or rash. No petechiae. NEUROLOGIC: line ordering clinician II-XII are grossly intact. No focal motor weakness. MUSCULOSKELETAL: No muscle wasting. ASSESSMENT/PLAN: (C25.0) Malignant neoplasm of head of pancreas (HCC) (primary encounter diagnosis) Assessment: -pT2 pN2 M0 stage III adenocarcinoma of the pancreas. -Staging previously completed in the problem list. -Agreed with plan for surveillance consisting of labs/tumor marker and CT scans every 3-4 months for the first 2 years after surgery then potentially every 6 months thereafter up to 5 years. Insurance company denied every 3 months scans. Fortunately the most recent CA-19-9 was down to 36. Plan: -Labs and CT scan in about 3-4 months. Leandro Joy DO Referring Provider: LEANDRO JOY [[id number]] Allergies As of Date: 11/12/2017 Noted Allergy Reaction CIPROFLOXACIN 10/09/2017 4 - Hives GEMZAR (GEMCITABINE HCL) 10/09/2017 14 - Other: See Comments Comments: Pseudo cellulitis PENICILLIN 10/09/2017 4 - Hives TETRACYCLINE 10/09/2017 9 - Itching Date Reviewed: 11/12/2017 Reviewed by: Teetee Patel LPN - Fully Assessed Reason for Visit: Established Patient [175] Primary Visit Diagnosis:Malignant neoplasm of head of pancreas (HCC) [C25.0] Order(s):CT ABD/PEL W IVCON [[id number]] Order #: [id number] FUTURE CT CHEST W IVCON [[id number]] Order #: [id number] FUTURE iv contrast (will be provided with radiology test)CT Chest ABD/PEL-Inject, intravenously, once for 1 dose.No IV access, insert saline lock prior to the beginning of sedation, infusion, injection of imaging exam. Discontinue saline lock post exam. If Pt. has a central line or IVAD, may access for administration according to line specific nursing protocol. Once exam is complete flush line and de-access according to line specific nursing protocol in the CT contrast administration guidelines link.Disp: 1 EachRfl: 0 enteric contrast (will be provided with radiology test)For CT CHESTABD/PEL W IVCON Routine order Administer, As Directed One Time Only, via Oral, Rectal, both Oral and Rectal, Enteric Tube, Stoma or Indwelling Catheter, Enteric Contrast as designated per enteric contrast guidelinesDisp: 1 EachRfl: 0 HGB A1C [[id number]] Order #: [id number] FUTURE Follow-up and Disposition History Recorded Prescriptions as of 11/12/2017 Sig: OMEPRAZOLE 40 MG CAPSULE,MUSA* Take 40 mg by mouth once edwin* KLOURF-SNZETBCO-XKHZAGG 12,00* Take by mouth three times adama* MOMETASONE-FORMOTEROL HFA 200* Inhale 2 Puffs as instructed * LOPERAMIDE 2 MG CAPSULE Take 2 mg by mouth three time* OXYGEN (HOME THERAPY) Inhale 2 L/min as instructed * IV CONTRAST (RADIOLOGY PROCED* CT Chest ABD/PEL-Inject, intr* ENTERIC CONTRAST (RADIOLOGY P* For CT CHESTABD/PEL W IVCON R* SULFAMETHOXAZOLE 800 MG-TRIME* Take 1 tablet by mouth twice * Medication notes this encounter SULFAMETHOXAZOLE 800 MG-TRIMETHOPRIM 160 MG TABLET >> Teetee Patel LPN 11/12/2017 3:50 PM >> TEETEE PATEL LPN SunNov 12, 2017 3:50 PM completed Problem List As Of Date 11/12/2017 Noted Resolved Malignant neoplasm of head of pancreas (HCC) [C*INVALID FOR* Diarrhea due to malabsorption [K90.9, R19.7] INVALID FOR* Visit Notes: >> Teetee Patel LPN SunNov 12, 2017 3:50 PM Status: Signed Est patient. One month office visit. Discuss recent labs. Teetee Patel LPN Encounter Status:Closed by LEANDRO JOY DO on 11/12/17 DEA MARQUEZ BMP Collected: 11/06/2017 Status: F Source: [place] 10:40 AM [facility] REPOSITORY TYPE CODE TESTS RESULT OUT OF REFERENCE UNITS RANGE LAB NAWB 135-146 mmol/L Low Sodium, Whole 130 Bld LAB K1WB 3.5-5.0 mmol/L Potassium,Who 4.1 le Bld LAB CLWB 98-110 mmol/L Low Chloride, 94 Whole Bld LAB ICAWB 1.08-1.30 mmol/L Ionized 1.17 Calcium, WB Result Comment: Please note: This value represents ionized calcium not total calcium. LAB CO2WB 23-32 mmol/L TCO2, Whole 23 Blood LAB GLUWB 65-100 mg/dL High Glucose, 134 Whole Bld LAB BUNWB 10-25 mg/dL BUN, Whole 13 Blood LAB BCRET 0.70-1.40 mg/dL Creatinine,Wh 0.90 ole Bld LAB AGAPWB 0-15 mmol/L Anion Gap, 13 Whole Bld LAB GFRAA eGFR- >60 Amer. LAB GFRNAA . eGFR-All >60 Other Races Result Comment: eGFR (Estimated GFR) Units of measure: mL/min/1.73 meters squared eGFR is derived from the reexpressed MDRD Study equation using the following parameters: serum creatinine, age, gender and race. The creatinine assay has been calibrated to be traceable to IDMS. An eGFR <60 mL/min/1.73m2 for >3 months is consistent with chronic kidney disease. Refer to [facility] guidelines for clinical interpretation. In patients with unstable renal function, e.g. those with acute kidney injury, the eGFR may not accurately reflect actual GFR. DEA ABS GR + CBC Collected: 11/06/2017 Status: F Source: [place] 10:40 AM [facility] REPOSITORY TYPE CODE TESTS RESULT OUT OF REFERENCE UNITS RANGE LAB WWBC 3.70-11.00 k/uL Low [place] WBC 3.62 LAB WRBC 4.20-6.00 m/uL Low [place] RBC 3.76 LAB WHGB 13.0-17.0 g/dL Low [place] Hemoglobin 12.1 LAB WHCT 39.0-51.0 % Low [place] Hematocrit 35.3 LAB WMCV 80.0-100.0 fL [place] MCV 93.9 LAB WMCH 26.0-34.0 pg [place] MCH 32.2 LAB WMCHC 30.5-36.0 g/dL [place] MCHC 34.3 LAB WRDW 11.5-15.0 % [place] RDW 12.7 LAB WPLT 150-400 k/uL [place] Platelet Cnt 164 LAB WMPV 9.0-12.7 fL [place] MPV 9.2 Result Comment: Test performed at: [facility] [place], [address] [place] [address]. LAB ABGRAN 1.45-7.50 k/uL Absol Gran 1.92 Count HEPATIC FUNCTN PANEL Collected: 11/06/2017 Status: F Source: [place] 10:40 AM [facility] REPOSITORY TYPE CODE TESTS RESULT OUT OF REFERENCE UNITS RANGE LAB ALB 3.9-4.9 g/dL Albumin 4.0 LAB TBIL 0.2-1.3 mg/dL Bilirubin, Total 0.3 LAB CBIL <0.2 mg/dL Bilirubin,Conjuga <0.2 jacky LAB ALKP 36-108 U/L Alkaline Phosphatase 96 LAB AST 14-40 U/L AST 23 LAB ALT 10-54 U/L ALT 17 LAB TP 6.3-8.0 g/dL Protein, Total 6.6 Performed By: #### HFP, [id number] #### [facility] [employer] [address], [place] [address] CA 19-9 Collected: 11/06/2017 Status: F Source: [place] 10:40 AM [facility] REPOSITORY TYPE CODE TESTS RESULT OUT OF RANGE REFERENCE UNITS LAB CA199 <36 U/mL High CA 19-9 39 Result Comment: Test analyzed by the Prabha DxI method. Performed By: #### HFP, CA199 #### [facility] [employer] [address] [place], [place] [address] CNCO Observed: 11/06/2017 Status: COMPLETED Source: [place] 12:00 AM [facility] REPOSITORY Letter Text Dear Elbert Espinosa: How to activate your [facility] Par[employer]able Account 1. Visit the [employer] Signup page at [email or web address] 2. Identify yourself using your one-time use activation code: [email or web address] 3. Follow the on-screen prompts to choose your own secure username and password The following information will be necessary to access your account for the first time: Information needed for sign-up: Your custom activation code used one-time only for the initial account set-up. Your date of The last 4 digits of your social security number What to do next: Fill in the requested information on the Identify Yourself Form at [email or web address] , click Next. Create your login and password, choose a Parrable ID and password that will be easy for you to use, but impossible for anyone else to guess. Pick a security question that will assist you in the event you forget your password the next time you log-on. If you have difficulty activating your account, please call our Parrable helpline at [phone] or toll free at . We hope you enjoy using Parrable! Kindest Regards, [facility] Parrable Team SOURAVN Observed: 10/30/2017 Status: COMPLETED Source: [place] 12:00 AM [facility] REPOSITORY Telephone (PHILLIPAWS) ELBERT ESPINOSA ([id number]) 1940 M Date Time Provider Department 10/30/17 LEANDRO JOY During your visit today, we recorded the following information about you: Homer De Santiago Psr 10/30/2017 9:43 AM Signed Fannie calling and stating due to frequency of CT scans patient has had this year Fannie is wanting to know if Dr. Joy wants to withdrawal order for current CT scan or send to next level of review within the insurance company? Please advise and can speak to any nurse regarding this matter. Leandro Joy DO 10/30/2017 1:21 PM Signed Guidelines suggest CT scans every 3-6 months for the first 2 years after completing adjuvant chemotherapy. Experience in the past as taught us that insurance companies favor the longer interval (ie, 6 months). Therefore we will have to cancel the CT scans. I would like him to keep the office visit with me as scheduled. DO Ada Mayorga PSR 10/30/2017 1:49 PM Signed Spoke with patient's , cancelled CT and kept labs and office visit. Ada Lr PSR Gypsy Burton 10/30/2017 4:05 PM Signed Patients called with additional questions for Ada. Please contact at [phone]. Jose Pope Psr 10/30/2017 4:23 PM Signed Patient's spoke to Ada, new phone note started. Jose Cárdenasr Allergies As of Date: 10/30/2017 Noted Allergy Reaction CIPROFLOXACIN 10/09/2017 4 - Hives GEMZAR (GEMCITABINE HCL) 10/09/2017 14 - Other: See Comments Comments: Pseudo cellulitis PENICILLIN 10/09/2017 4 - Hives TETRACYCLINE 10/09/2017 9 - Itching Date Reviewed: 10/09/2017 Reviewed by: Leandro Joy - Fully Assessed Reason for Visit: Question regarding CT Scan Frequency [Other] Prescriptions as of 10/30/2017 Sig: OMEPRAZOLE 40 MG CAPSULE,MUSA* Take 40 mg by mouth once edwin* [id number] 12,00* Take by mouth three times adama* MOMETASONE-FORMOTEROL HFA 200* Inhale 2 Puffs as instructed * LOPERAMIDE 2 MG CAPSULE Take 2 mg by mouth three time* OXYGEN (HOME THERAPY) Inhale 2 L/min as instructed * Problem List As Of Date 10/30/2017 Noted Resolved Malignant neoplasm of head of pancreas (HCC) [C*INVALID FOR* Diarrhea due to malabsorption [K90.9, R19.7] INVALID FOR* Encounter Status:Closed by ADA ISAAC on 10/30/17 PROGRESS Observed: 10/09/2017 Status: COMPLETED Source: [place] 2:05 PM [facility] REPOSITORY HNO ID: [id number] Author: Leandro Joy Service: (none) Author Type: Physician Type: Progress Notes Filed: 10/09/2017 3:12 PM Note Text: Patient is self-referred for further care of pancreas cancer. HPI: The patient is a 77-year-old male who has a past medical history significant for COPD (Dulera and uses oxygen at night) and pancreas cancer. Per records from [facility]: Pancreatic cancer (adenocarcinoma), involving pancreatic head and uncinate process, 2.1 cm, stage 1B (T2-N0-M0), borderline resectable, with involvement of lateral wall of portal vein. Baseline CA19- 9 level elevated at 354. He was evaluated [...] completion of chemoradiation therapy for 3 months. ? He is s/p weekly 5FU from 05/08/17 [...] willing to take that risk. In view of his decision, I will plan to continue to observe him with repeat labs and CT scan in about 3 months. He and his voiced understanding. He was encouraged to call the clinic with any other questions or concern. Most recent evaluation in July 2017-- CT C/A/P 08/13/2017: 1.??Postoperative changes are again noted. 2.??No evidence of significant lymphadenopathy or other abnormal mass. 3.??Extensive pulmonary emphysema again noted. Patient describes the skin reaction to gemcitabine as cellulitis of the right and left LE with right worse than left. Also had intense itching up the back. Had rash and exacerbation with infusional 5FU. Good appetite. No nausea. Taking 1 Creon and 1 Imodium tablet every meal. Chronic diarrhea. Lower abdominal pain chronically--comes and goes. Mostly hurts in the morning then partially relieved with BM. Diarrhea was worse when tried 2 Creon tablets. Smokes about 1/2 ppd. Stays active--enjoys yard work. Not limited by dyspnea. Cough without much sputum production. Has a lot of sinus drainage when outside. PMH, medications and allergies personally reviewed by me today. Any changes documented in appropriate section. ROS: Constitutional: Denies episodes of fever and night sweats. Neuro: Denies MITCHELL, vertigo, dizziness and imbalance. Denies symptoms of neuropathy. HEENT: No recent change in voice, vision or hearing. Resp: See above. CVS: Denies exertional chest pain, PND, orthopnea and LE edema. GI: Denies dysgeusia. Denies symptoms of stomatitis. Denies dysphagia and odynophagia. : Denies dysuria or gross hematuria. No symptoms of bladder outlet obstruction. Endo: Denies hot flashes. Denies polyuria and polydipsia. Denies heat and cold intolerance. Musculoskeletal: Denies bone, back, joint and muscular pain. Derm: Denies rash. Denies jaundice and diffuse pruritis. Heme: Denies unusual bleeding and unexplained bruising. Psych: Normal mood. PHYSICAL EXAM: Vitals: Blood pressure 103/55, pulse 70, temperature 37.1 ?C (98.7 ?F), temperature source Temporal Artery, height 167.6 cm (5' 6), weight 57.8 kg (127 lb 8 oz). Well-appearing and in no acute distress. EYES: Sclerae are anicteric bilaterally. ENT: Oral mucosa is unremarkable. There is no sign of thrush or mucositis. NECK: Supple. No enlargement of thyroid. LYMPHATIC: There is no palpable cervical, supraclavicular, axillary or inguinal adenopathy. RESPIRATORY: Inspiratory breath sounds are of very diminished intensity in all bullock. No rales, wheezes or rhonchi. CARDIOVASCULAR: Rhythm is regular. Normal intensity S1/S2. There is no gallop or murmur. ABDOMEN: The abdomen is nondistended. No organomegaly. No tenderness. Small periumbilical hernia. Extremities: No swelling or edema. SKIN: No jaundice or rash. No petechiae. NEUROLOGIC: line ordering clinician II-XII are grossly intact. No focal motor weakness. MUSCULOSKELETAL: No muscle wasting. ASSESSMENT/PLAN: (C25.0) Malignant neoplasm of head of pancreas (HCC) (primary encounter diagnosis) Assessment: -pT2 pN2 M0 stage III adenocarcinoma of the pancreas. -Staging completed in the problem list. -I discussed with the patient and his the natural history, treated course, and prognosis of stage III pancreas cancer. -Agreed with plan for surveillance consisting of labs/tumor marker and CT scans every 3-4 months for the first 2 years after surgery then potentially every 6 months thereafter up to 5 years. Plan: -CBC/stat BMP/liver panel/CA-19-[address] scans followed by office visit in mid October. (K90.9, R19.7) Diarrhea due to malabsorption Assessment: -He has noticed that greasy or fatty foods definitely exacerbate diarrhea. Plan: -I advised him to increase Creon to 2 capsules if he has a richer or fattier meal. -Okay to continue Imodium when necessary. -Add back Metamucil which he had taken for years prior to his surgery beginning with half dose for the first week and working his way up. Leandro Joy DO CNOVSP Observed: 10/09/2017 Status: COMPLETED Source: [place] 2:00 PM [facility] REPOSITORY Visit (SP) Office (KATHERINE) ELBERT ESPINOSA ([id number]) 1940 M Date Time Provider Department 10/09/17 2:00 PM LEANDRO JOY During your visit today, we recorded the following information about you: Temperature Pulse Blood pressure Weight 98.7 degrees 70/minute 103/55 57.8 kg Height 1.676 m Teetee Jorge SOTELO 10/09/2017 2:11 PM Signed New patient. Discuss diagnosis of pancreatic cancer. Teetee Joy, 10/09/2017 3:12 PM Signed Patient is self-referred for further care of pancreas cancer. HPI: The patient is a 77-year-old male who has a past medical history significant for COPD (Dulera and uses oxygen at night) and pancreas cancer. Per records from [facility]: Pancreatic cancer (adenocarcinoma), involving pancreatic head and uncinate process, 2.1 cm, stage 1B (T2-N0-M0), borderline resectable, with involvement of lateral wall [...] per day for 3 weeks then between 1- 2 weeks after completion of chemotherapy, chemoradiation was initiated with 50.4 Gy of radiation with continuous infusion of 250 (225mg) mg per sq m 5-FU daily throughout the radiation therapy, and another phase of chemotherapy was initiated 3-5 weeks after completion of chemoradiation therapy for 3 months. ? He is s/p weekly 5FU from 05/08/17 [...] willing to take that risk. In view of his decision, I will plan to continue to observe him with repeat labs and CT scan in about 3 months. He and his voiced understanding. He was encouraged to call the clinic with any other questions or concern. Most recent evaluation in July 2017-- CT C/A/P 08/13/2017: 1.??Postoperative changes are again noted. 2.??No evidence of significant lymphadenopathy or other abnormal mass. 3.??Extensive pulmonary emphysema again noted. Patient describes the skin reaction to gemcitabine as cellulitis of the right and left LE with right worse than left. Also had intense itching up the back. Had rash and exacerbation with infusional 5FU. Good appetite. No nausea. Taking 1 Creon and 1 Imodium tablet every meal. Chronic diarrhea. Lower abdominal pain chronically--comes and goes. Mostly hurts in the morning then partially relieved with BM. Diarrhea was worse when tried 2 Creon tablets. Smokes about 1/2 ppd. Stays active--enjoys yard work. Not limited by dyspnea. Cough without much sputum production. Has a lot of sinus drainage when outside. PMH, medications and allergies personally reviewed by me today. Any changes documented in appropriate section. ROS: Constitutional: Denies episodes of fever and night sweats. Neuro: Denies MITCHELL, vertigo, dizziness and imbalance. Denies symptoms of neuropathy. HEENT: No recent change in voice, vision or hearing. Resp: See above. CVS: Denies exertional chest pain, PND, orthopnea and LE edema. GI: Denies dysgeusia. Denies symptoms of stomatitis. Denies dysphagia and odynophagia. : Denies dysuria or gross hematuria. No symptoms of bladder outlet obstruction. Endo: Denies hot flashes. Denies polyuria and polydipsia. Denies heat and cold intolerance. Musculoskeletal: Denies bone, back, joint and muscular pain. Derm: Denies rash. Denies jaundice and diffuse pruritis. Heme: Denies unusual bleeding and unexplained bruising. Psych: Normal mood. PHYSICAL EXAM: Vitals: Blood pressure 103/55, pulse 70, temperature 37.1 ?C (98.7 ?F), temperature source Temporal Artery, height 167.6 cm (5' 6), weight 57.8 kg (127 lb 8 oz). Well-appearing and in no acute distress. EYES: Sclerae are anicteric bilaterally. ENT: Oral mucosa is unremarkable. There is no sign of thrush or mucositis. NECK: Supple. No enlargement of thyroid. LYMPHATIC: There is no palpable cervical, supraclavicular, axillary or inguinal adenopathy. RESPIRATORY: Inspiratory breath sounds are of very diminished intensity in all bullock. No rales, wheezes or rhonchi. CARDIOVASCULAR: Rhythm is regular. Normal intensity S1/S2. There is no gallop or murmur. ABDOMEN: The abdomen is nondistended. No organomegaly. No tenderness. Small periumbilical hernia. Extremities: No swelling or edema. SKIN: No jaundice or rash. No petechiae. NEUROLOGIC: line ordering clinician II-XII are grossly intact. No focal motor weakness. MUSCULOSKELETAL: No muscle wasting. ASSESSMENT/PLAN: (C25.0) Malignant neoplasm of head of pancreas (HCC) (primary encounter diagnosis) Assessment: -pT2 pN2 M0 stage III adenocarcinoma of the pancreas. -Staging completed in the problem list. -I discussed with the patient and his the natural history, treated course, and prognosis of stage III pancreas cancer. -Agreed with plan for surveillance consisting of labs/tumor marker and CT scans every 3-4 months for the first 2 years after surgery then potentially every 6 months thereafter up to 5 years. Plan: -CBC/stat BMP/liver panel/CA-19-[address] scans followed by office visit in mid October. (K90.9, R19.7) Diarrhea due to malabsorption Assessment: -He has noticed that greasy or fatty foods definitely exacerbate diarrhea. Plan: -I advised him to increase Creon to 2 capsules if he has a richer or fattier meal. -Okay to continue Imodium when necessary. -Add back Metamucil which he had taken for years prior to his surgery beginning with half dose for the first week and working his way up. Leandro Joy, Referring Provider: SELF [200] Allergies As of Date: 10/09/2017 Noted Allergy Reaction CIPROFLOXACIN 10/09/2017 4 - Hives GEMZAR (GEMCITABINE HCL) 10/09/2017 14 - Other: See Comments Comments: Pseudo cellulitis PENICILLIN 10/09/2017 4 - Hives TETRACYCLINE 10/09/2017 9 - Itching Date Reviewed: 10/09/2017 Reviewed by: Leandro Joy - Fully Assessed Reason for Visit: New Patient [172] Primary Visit Diagnosis:Malignant neoplasm of head of pancreas (HCC) [C25.0] Other Visit Diagnosis:Diarrhea due to malabsorption [K90.9, R19.7] Order(s):CT ABD/PEL W IVCON [[id number]] Order #: [id number] FUTURE CT CHEST W IVCON [[id number]] Order #: [id number] FUTURE iv contrast (will be provided with radiology test)CT Chest ABD/PEL-Inject, intravenously, once for 1 dose.No IV access, insert saline lock prior to the beginning of sedation, infusion, injection of imaging exam. Discontinue saline lock post exam. If Pt. has a central line or IVAD, may access for administration according to line specific nursing protocol. Once exam is complete flush line and de-access according to line specific nursing protocol in the CT contrast administration guidelines link.Disp: 1 EachRfl: 0 enteric contrast (will be provided with radiology test)For CT CHESTABD/PEL W IVCON Routine order Administer, As Directed One Time Only, via Oral, Rectal, both Oral and Rectal, Enteric Tube, Stoma or Indwelling Catheter, Enteric Contrast as designated per enteric contrast guidelinesDisp: 1 EachRfl: 0 Follow-up and Disposition History Recorded Prescriptions as of 10/09/2017 Sig: OMEPRAZOLE 40 MG CAPSULE,MUSA* Take 40 mg by mouth once edwin* [id number] 12,00* Take by mouth three times adama* MOMETASONE-FORMOTEROL HFA 200* Inhale 2 Puffs as instructed * LOPERAMIDE 2 MG CAPSULE Take 2 mg by mouth three time* OXYGEN (HOME THERAPY) Inhale 2 L/min as instructed * IV CONTRAST (RADIOLOGY PROCED* CT Chest ABD/PEL-Inject, intr* ENTERIC CONTRAST (RADIOLOGY P* For CT CHESTABD/PEL W IVCON R* Problem List As Of Date 10/09/2017 Noted Resolved Malignant neoplasm of head of pancreas (HCC) [C*INVALID FOR* Diarrhea due to malabsorption [K90.9, R19.7] INVALID FOR* Visit Notes: >> Teetee Patel LPN Tue Oct 09, 2017 1:59 PM Status: Signed New patient. Discuss diagnosis of pancreatic cancer. Teetee Patel LPN Encounter Status:Closed by LEANDRO JOY DO on 10/09/17 NERISSA Observed: 09/28/2017 Status: COMPLETED Source: [place] 12:00 AM [facility] REPOSITORY Telephone (HEMALFONSO) ELBERT ESPINOSA ([id number]) 1940 M Date Time Provider Department 09/28/17 LEANDRO JOY During your visit today, we recorded the following information about you: Gypsy Burton 09/28/2017 3:19 PM Signed Patient would like to establish as a new patient for Dr. Joy. He has had Pancreatic cancer but is recovering. He had surgery in December. He still has a port and is due for a port flush this month. He was previously seen by [facility]. Please call Hannah at [phone]. Ada Lr PSR 10/01/2017 8:44 AM Signed Spoke with patient's and stated we needed his most recent records from his previous provider for review before scheduling. Gave her the fax number for this office to facilitate the process. Advised her that, once records are received and reviewed, we would schedule for patient for his monthly port flush and an office visit. Ada Lr PSR Jose Pope Psr 10/02/2017 3:49 PM Addendum Per Carolina Faulkner she stated that said to go ahead and schedule the patient for a new patient visit. The records have been received on a flash drive. I spoke to Hannah patient's and scheduled Elbert for 10/09/17, she confirmed this date and time. Jose Pope Psr Allergies As of Date: 09/28/2017 (Not on File) Date Reviewed: Never Reviewed Reason for Visit: New patient [Other] Problem List As Of Date: 09/28/2017 (None) Encounter Status:Closed by JOSE BECKHAM on 10/02/17 CT CHEST ABDOMEN Observed: 08/13/2017 Status: F Source: [facility] PELVIS WITH CONTRAST 9:33 AM ONE REPOSITORY Order Comment: Reason for exam?:pancreatic ca Injury/Trauma or Illness?:Illness/Other How long have you had these symptoms (acute/chronic)?:Acute Type of Exam?:Subsequent/Follow-up Additional signs and symptoms?:restage EXAMINATION: CT CHEST ABDOMEN PELVIS WITH CONTRAST [...] mass. 3. Extensive pulmonary emphysema again noted. [employer] Workstation ID: [id number] Dictated by: DAVE MURPHY on SunAug 13, 2017 11:42:51 AM EDT Transcribed by: GEOVANI OJEDA on SunAug 13, 2017 11:46:56 AM EDT Finalized by: DAVE MURPHY on SunAug 13, 2017 12:27:[address] RADIATION THERAPY Observed: 06/04/2017 Status: F Source: [facility] (NO PACS 2:00 PM ONE REPOSITORY IMAGES) Order Comment: Reason for exam?:pancreatic ca Injury/Trauma or Illness?:Illness/Other How long have you had these symptoms (acute/chronic)?:Acute Type of Exam?:Initial Additional signs and symptoms?:rad tx plan This is an auto finalized result. Please refer to patient chart for further information. information. information. CT CHEST ABDOMEN Observed: 04/24/2017 Status: F Source: [facility] PELVIS WITH CONTRAST 9:13 AM ONE REPOSITORY Order Comment: Reason for exam?:Pancreatic cancer s/p surgery, increasing tumor markers, for follow up. Injury/Trauma or Illness?:Illness/Other How long have you had these symptoms (acute/chronic)?:Acute Type of Exam?:Subsequent/Follow-up Additional signs and symptoms?:none EXAMINATION: CT CHEST ABDOMEN PELVIS WITH CONTRAST [...] COMPARISON: CT chest, abdomen and pelvis from [facility] of 02/22/2017 and 01/03/2017, abdominal MRI from [place] on 01/10/2017. FINDINGS: CT CHEST: Moderate bilateral [...] considered. 2. Advanced emphysema changes are redemonstrated. PRR/trw Workstation ID: [id number] Dictated by: LEANDRO MCGILL on SunApr 24, 2017 12:41:06 PM EST Transcribed by: HOMER BELTRÁN on SunApr 24, 2017 12:48:05 PM EST Finalized by: LEANDRO MCGILL on SunApr 24, 2017 12:48:05 PM EST ALLERGIES ALLERGIES DATE TYPE / CODE NAME / CODE REACTION SEVERITY SOURCE 10/09/2017 DRUG CIPROFLOXACIN HIVES [facility] INGREDI/[address] [id number](SNOM Repository ED CT) 10/09/2017 DRUG GEMCITABINE HCL OTHER: SEE C [facility] INGREDI/[address] 291551(SNOM Repository ED CT) 10/09/2017 DRUG PENICILLIN HIVES [facility]/[address] [place] 156114(SNOM Repository ED CT) 10/09/2017 DRUG TETRACYCLINE ITCHING [facility]/[address] 698845(SNOM Repository ED CT) 02/09/2017 DRUG GEMCITABINE [facility] INGREDI/419 Repository 883514(SNOM ED CT) 11/30/2016 DRUG ONDANSETRON HCL Hives [facility] INGREDI/419 Repository 243247(SNOM ED CT) 12/01/2014 DRUG CIPROFLOXACIN Hives [facility] INGREDI/419 Repository 990832(SNOM ED CT) 12/01/2014 DRUG PENICILLIN Hives [facility] INGREDI/419 Repository 063865(SNOM ED CT) 12/01/2014 DRUG TETRACYCLINE [facility] INGREDI/419 Repository 271821(SNOM ED CT) ENCOUNTERS ENCOUNTERS ADMIT/DISCHARGE ACCOUNT NUMBER ADMITTING ENCOUNTER LOCATION SOURCE CLASS 03/20/2018/03/21/19 [id number] Ambulatory [address] [place] Repository 03/14/2018 [id number] Ambulatory [facility] ding:MFPLAB Repository 02/20/2018/02/22/20 [id number] Ambulatory [address] [place] Repository 01/24/2018/01/26/20 [id number] Ambulatory [address] [place] Repository 01/22/2018/01/23/20 [id number] Ambulatory [address] [place] Repository 01/22/2018/01/23/20 [id number] Ambulatory [facility] [place] Repository 01/22/2018/01/23/20 [id number] Ambulatory [facility] [place] Repository 01/22/2018/01/23/20 [id number] Ambulatory [facility] [place] Repository 12/12/2017/12/14/19 [id number] Ambulatory [facility] [place] Repository 12/05/2017/12/07/19 [id number] Ambulatory [facility] [place] Repository 11/20/2017 [id number] Ambulatory [facility] ding:MFPLAB Repository 11/16/2017/11/20/19 [id number] Ambulatory [facility] [place] Repository 11/15/2017/11/17/19 [id number] Ambulatory [facility] [place] Repository 11/12/2017/11/13/19 [id number] Ambulatory [facility] [place] Repository 11/12/2017/11/13/19 [id number] Ambulatory [facility] [place] Repository 11/12/2017/11/14/19 [id number] [facility] Repository 11/06/2017/11/08/19 [id number] [facility] Repository 11/06/2017/11/08/19 [id number] [facility] Repository 10/09/2017/10/10/19 [id number] [facility] Repository 10/09/2017/10/11/19 [id number] [facility] Repository 09/19/2017/09/20/19 [id number] SHELDON SEYMOUR Ambulatory Building:[place] [address] V One Repository 08/16/2017/08/17/19 [id number] OQUENDO, Ambulatory Building:[place] [address] [address] Y One Repository 08/16/2017/08/17/19 [id number] SHELDON SEYMOUR Ambulatory Building:[place] [address] L One Repository 08/13/2017/08/14/19 [id number] Ambulatory Building:[place] [address] X One Repository 08/13/2017/08/14/19 [id number] SHELDON SEYMOUR Ambulatory Building:[place] [address] V One Repository 08/01/2017/08/02/19 [id number] OQUENDO, Ambulatory Building:[place] [address] [address] Y One Repository 07/19/2017/07/20/19 [id number] Ambulatory Building:[facility] 18 Y One Repository 07/18/2017/07/19/19 [id number] Ambulatory Building:[facility] 18 Y One Repository 07/17/2017/07/18/19 [id number] Ambulatory Building:[facility] 18 Y One Repository 07/16/2017/07/17/19 [id number] CARMEN HOUSER Ambulatory Building:[place] [address] L One Repository 07/16/2017/07/17/19 [id number] Ambulatory Building:[place] [address] Y One Repository 07/13/2017/07/14/19 [id number] Ambulatory Building:[place] [address] Y One Repository 07/11/2017/07/12/19 [id number] Ambulatory Building:[place] [address] Y One Repository 07/10/2017/07/11/19 [id number] Ambulatory Building:[place] [address] Y One Repository 07/09/2017/07/10/19 [id number] Ambulatory Building:[place] [address] Y One Repository 07/06/2017/07/07/19 [id number] Ambulatory Building:[place] [address] Y One Repository 07/05/2017/07/06/19 [id number] Ambulatory Building:[place] [address] Y One Repository 07/04/2017/07/05/19 [id number] Ambulatory Building:[place] [address] Y One Repository 07/03/2017/07/04/19 [id number] Ambulatory Building:[place] [address] Y One Repository 07/02/2017/07/03/19 [id number] CARMEN HOUSER Ambulatory Building:[place] [address] L One Repository 07/02/2017/07/03/19 [id number] Ambulatory Building:[place] [address] Y One Repository 07/02/2017/07/03/19 [id number] JERE, Ambulatory Building:[place] [address] [address] Y One Repository 06/29/2017/06/30/19 [id number] Ambulatory Building:[facility] 18 Y One Repository 06/29/2017/06/30/19 [id number] EVA WATERS Ambulatory Building:[place] [address] [address] CDS One Repository 06/28/2017/06/29/19 [id number] Ambulatory Building:[facility] 18 Y One Repository 06/27/2017/06/28/19 [id number] Ambulatory Building:[facility] 18 Y One Repository 06/26/2017/06/27/19 [id number] Ambulatory Building:[facility] 18 Y One Repository 06/25/2017/06/26/19 [id number] Ambulatory Building:[facility] 18 Y One Repository 06/22/2017/06/23/19 [id number] Ambulatory Building:[facility] 18 Y One Repository 06/21/2017/06/22/19 [id number] Ambulatory Building:[facility] 18 Y One Repository 06/20/2017/06/21/19 [id number] Ambulatory Building:[facility] 18 Y One Repository 06/19/2017/06/20/19 [id number] Ambulatory Building:[facility] 18 Y One Repository 06/18/2017/06/19/19 [id number] CARMEN HOUSER Ambulatory Building:[facility] 18 L One Repository 06/18/2017 [id number] CARMEN HOUSER Ambulatory Building:[facility] L One Repository 06/15/2017/06/16/19 [id number] Ambulatory Building:[facility] 18 Y One Repository 06/14/2017/06/15/19 [id number] Ambulatory Building:[facility] 18 Y One Repository 06/13/2017/06/14/19 [id number] Ambulatory Building:[facility] 18 Y One Repository 06/12/2017/06/13/19 [id number] Ambulatory Building:[facility] 18 Y One Repository 06/11/2017/06/12/19 [id number] CARMEN HOUSER Ambulatory Building:[facility] 18 L One Repository 06/11/2017/06/12/19 [id number] CARMEN HOUSER Ambulatory Building:[facility] 18 V One Repository 06/04/2017/06/05/19 [id number] Ambulatory Building:[facility] 18 X One Repository 06/04/2017/06/05/19 [id number] CARMEN HOUSER Ambulatory Building:[facility] 18 V One Repository 06/01/2017/06/02/19 [id number] JERE, Ambulatory Building:[place] [address] [address] Y One Repository 05/28/2017/05/29/19 [id number] CARMEN HOUSER Ambulatory Building:[facility] 18 L One Repository 05/25/2017/05/26/19 [id number] CARMEN HOUSER Ambulatory Building:[place] [address] V One Repository 05/14/2017/05/15/19 [id number] CARMEN HOUSER Ambulatory Building:[place] [address] L One Repository 05/07/2017/05/08/19 [id number] CARMEN HOUSER Ambulatory Building:[place] [address] L One Repository 04/30/2017/05/01/19 [id number] CARMEN HOUSER Ambulatory Building:[place] [address] V One Repository 04/26/2017/04/27/19 [id number] CARMEN HOUSER Ambulatory Building:[place] [address] L One Repository 04/25/2017 [id number] JERE, Ambulatory Building:[facility] ARI COR[place]AL Y One Repository 04/24/2017/04/24/19 [id number] Ambulatory Building:[place] [address] X One Repository 04/24/2017/04/24/19 [id number] CARMEN HOUSER Ambulatory Building:[place] [address] V One Repository 04/19/2017/04/19/19 [id number] CARMEN HOUSER Ambulatory Building:[place] [address] L One Repository 04/19/2017/07/18/19 [id number] Ambulatory Building:[place] [address] B Three Repository 04/18/2017/04/18/19 [id number] CARMEN HOUSER Ambulatory Building:[place] [address] V One Repository 03/30/2017/03/30/19 [id number] Ambulatory Building:[place] [address] Three Repository PAYERS PAYERS ENCOUNTER GUARANTOR PAYER SUBSCRIBER SOURCE 03/14/2018 Elbert Paez: Dea Chan Insurance:[id number] [address]Brr: 12/27/17Policy Number: Repository [id number] () Date:8853-48-87WH [address] [place] [address]SM: 03/14/2018 Secondary NOT GIVENUNK [place] Insurance:SELF PAY [facility]: Effective Repository Date:2018-03-14 11/20/2017 Elbert Espinosa1639 Primary Elbert ErwinDOB: [place] Insurance:HUMANA [facility] [id number] [facility] -OUT [place] [facility] [place] [address]Zar: NETWORKPolicy Number: Repository [id number] () Date:8614-06-40EE [address] [place] [address]CK: 11/20/2017 Secondary NOT GIVENUNK De[place] Insurance:SELF PAY [facility] Number: Effective Repository Date:2017-11-20 09/19/2017 ELBERT R Primary [facility] ERWINDOB: Insurance:JESSICA ERWINDOB: Repository [facility] Number: [id number] [place] [id number] [facility], Date:2017-09-19 [place] [address]Mbt: [place] [address]Vxq: [place]DM[place]HE[place], [place] () [address]HX: (688) () 81 09/19/2017 Secondary [facility] Insurance:JESSICA ERWINDOB: Repository PENDINGPolicy Number: [id number] [place] Date:2017-09-19 - [facility], [place] [address]Esg: [place] [address]WP: (320) () [phone] 09/19/2017 Tertiary ELBERT R [facility] Insurance:HUMANA ERWINDOB: Repository MANAGED [id number] MEDICAREPolicy [place] Number: [place] [id number] [place] [address]Rwr: Date:8350-95-05XC [address] [place] [address] [place] (HP) [address]FJ: 08/16/2017 ELBERT R Primary ELBERT R [facility] ERWINDOB: Insurance:HUMANA ERWINDOB: Repository MANAGED [id number] [place] MEDICAREPolicy [place] [address], Number: [place] [address]Udt: [id number] [place] [address]Rkt: Date:2451-18-74XT BOX (HP) [address] [place] [address] [place] (HP) [address]NL: 08/16/2017 Secondary ELBERT R [facility] Insurance:HCAP/CHARIT ERWINDOB: Repository [facility] Number: [id number] Date:2017-03-21 - [place], 2017-09-18 [place] [address]Ldv: (HP) 08/16/2017 ELBERT R Primary ELBERT R [facility] ERWINDOB: Insurance:HUMANA ERWINDOB: Repository MANAGED [id number] [place] MEDICAREPolicy [place] [address], Number: [place] [address]Cnl: [id number] [place] [address]Uas: Date:3972-77-16NO BOX (HP) [address] [place] [address] [place] (HP) [address]XN: 08/16/2017 Secondary [facility] Insurance:HUMANA ERWINDOB: Repository MANAGED [id number] MEDICAREPolicy [place] Number: [place] [id number] [place] [address]Leo: Date:4115-87-11II [address] [place] [address] [place] (HP) [address]LO: 08/16/2017 Tertiary ELBERT R [facility] Insurance:HCAP/CHARIT ERWINDOB: Repository YPolicy Number: [id number] [place] Date:2017-03-21 - [facility], 2017-09-18 [place] [address]Iti: (HP) 08/13/2017 ELBERT R Primary ELBERT R [facility] ERWINDOB: Insurance:HUMANA ERWINDOB: Repository MANAGED [id number] [place] MEDICAREPolicy [place] [address], Number: [place] [address]Wuc: [id number] [place] [address]Whw: Date:4866-17-94XJ BOX () [address] [place] [address] () [address]ZH: 08/13/2017 Secondary ELBERT R [facility] Insurance:HUMANA ERWINDOB: Repository MANAGED [id number] MEDICAREPolicy [place] Number: [place], [id number] [place] [address]Kkq: Date:6311-69-71EN [address] [place] [address] () [address]IX: 08/13/2017 Tertiary ELBERT R [facility] Insurance:HCAP/CHARIT ERWINDOB: Repository YPolicy Number: [id number] [facility] Date:2017-03-21 - [facility], 2017-09-18 [place] [address]Ipy: (HP) 08/13/2017 ELBERT R Primary ELBERT R [facility] ERWINDOB: Insurance:HUMANA ERWINDOB: Repository MANAGED [id number] [place] MEDICAREPolicy [place] [address], Number: [place] [address]Qqz: [id number] [place] [address]Wfw: Date:8704-92-93BF BOX (HP) [address] [place] [address] (HP) [address]YY: 08/13/2017 Secondary ELBERT R [facility] Insurance:HUMANA ERWINDOB: Repository MANAGED [id number] MEDICAREPolicy [place] Number: [place] [id number] [place] [address]Esk: Date:0251-09-07NQ [address] [place] [address] (HP) [address]YR: 08/13/2017 Tertiary ELBERT R [facility] Insurance:HCAP/CHARIT ERWINDOB: Repository YPolicy Number: [id number] [place] Date:2017-03-21 [facility], 2017-09-18 [place] [address]Hiv: (HP) 08/01/2017 ELBERT R Primary [facility] ERWINDOB: Insurance:HUMANA ERWINDOB: Repository MANAGED [id number] [place] MEDICAREPolicy [place] [facility], Number: [place] [address]Bmv: [id number] [place] [address]Xqv: Date:3380-10-26PI BOX (HP) [address] [place] [address] (HP) [address]GK: 08/01/2017 Secondary ELBERT R [facility] Insurance:HUMANA ERWINDOB: Repository MANAGED [id number] MEDICAREPolicy [place] Number: [place] [id number] [place] [address]Eck: Date:2237-05-52WT [address] [place] [address] (HP) [address]KL: 08/01/2017 Tertiary ELBERT R [facility] Insurance:HCAP/CHARIT ERWINDOB: Repository YPolicy Number: [id number] [place] Date:2017-03-21[facility], 2017-09-18 [place] [address]Ipy: () 07/19/2017 ELBERT R Primary [facility] ERWINDOB: Insurance:HUMANA ERWINDOB: Repository MANAGED [id number] [place] MEDICAREPolicy [place] [address], Number: [place] [address]Ijn: [id number] Date:2016-02-27 - (HP) 7385-91-63NX [address] [place] [address]XN: 07/19/2017 Secondary [facility] Insurance:HUMANA ERWINDOB: Repository MANAGED [id number] MEDICAREPolicy [place] Number: [place], [id number] [place] [address]Zqn: Date:6991-58-80EB [address] [place] [address] () [address]WW: 07/19/2017 Tertiary NOT [facility] Insurance:HCAP/CHARIT Repository YPolicy Number: Effective Date:2016-07-27 - 2016-09-22 07/19/2017 Tertiary [facility] Insurance:HCAP/CHARIT ERWINDOB: Repository YPolicy Number: [id number] [place] Date:2016-09-22 [facility], 2017-03-25 [place] [address]Lip: () 07/19/2017 Tertiary [facility] Insurance:HCAP/CHARIT ERWINDOB: Repository YPolicy Number: [id number] [place] Date:2017-03-21 [facility], 2017-09-18 [place] [address]Gnu: () 07/18/2017 ELBERT R Primary [facility] ERWINDOB: Insurance:HUMANA ERWINDOB: Repository MANAGED [id number] [place] MEDICAREPolicy [place] [address], Number: [place], [place] [address]Hby: [id number] [phone] Date:2016-02-27 - (HP) 3459-89-41AF [address] [place] [address]ED: 07/18/2017 Secondary [facility] Insurance:HUMANA ERWINDOB: Repository MANAGED [id number] MEDICAREPolicy [place] Number: [place], [id number] [place] [address]Iyu: Date:4259-96-81IB [address] [place] [address] (HP) [address]JI: 07/18/2017 Tertiary [facility] Insurance:HCAP/CHARIT Repository YPolicy Number: Effective Date:2016-07-27 - 2016-09-22 07/18/2017 Tertiary [facility] Insurance:HCAP/CHARIT ERWINDOB: Repository YPolicy Number: [id number] [place] Date:2016-09-22 - [facility], 2017-03-25 [place] [address]Ijg: (HP) 07/18/2017 Tertiary [facility] Insurance:HCAP/CHARIT ERWINDOB: Repository YPolicy Number: [id number] [place] Date:2017-03-21 - [facility], 2017-09-18 [place] [address]Kbp: (HP) 07/17/2017 [place] R Primary [facility] ERWINDOB: Insurance:HUMANA ERWINDOB: Repository MANAGED [id number] [place] MEDICAREPolicy [place] [address], Number: [place], [place] [address]Qgr: [id number] [phone] Date:2016-02-27 - (HP) 2862-13-98CT [address] [place] [address]BP: 07/17/2017 Secondary [facility] Insurance:HUMANA ERWINDOB: Repository MANAGED [id number] MEDICAREPolicy [place] Number: [place] [id number] [place] [address]Dgc: Date:6257-33-88UM [address] [place] [address] (HP) [address]SJ: 07/17/2017 Tertiary NOT [facility] Insurance:HCAP/CHARIT Repository YPolicy Number: Effective Date:2016-07-27 - 2016-09-22 07/17/2017 Tertiary [facility] Insurance:HCAP/CHARIT ERWINDOB: Repository YPolicy Number: [id number] [place] Date:2016-09-22 - [facility], 2017-03-25 [place] [address]Eru: (HP) 07/17/2017 Tertiary [facility] Insurance:HCAP/CHARIT ERWINDOB: Repository YPolicy Number: [id number] [place] Date:2017-03-21 - [facility], 2017-09-18 [place] [address]Sxc: (HP) 07/16/2017 ELBERT R Primary [facility] ERWINDOB: Insurance:HUMANA ERWINDOB: Repository MANAGED [id number] [place] MEDICAREPolicy [place] [address], Number: [place] [address]Lzd: [id number] [place] [address]Lmh: Date:6813-22-28ZF BOX (HP) [address] [place] [address] (HP) [address]WT: 07/16/2017 Secondary [facility] Insurance:HUMANA ERWINDOB: Repository MANAGED [id number] MEDICAREPolicy [place] Number: [place] [id number] [place] [address]Hmf: Date:2534-46-79XW [address] [place] [address] () [address]WJ: 07/16/2017 Tertiary [facility] Insurance:HCAP/CHARIT ERWINDOB: Repository YPolicy Number: [id number] [place] Date:2017-03-21 - [facility], 2017-09-18 [place] [address]Lnl: (HP) 07/16/2017 ELBERT R Primary [facility] ERWINDOB: Insurance:HUMANA ERWINDOB: Repository MANAGED [id number] [place] MEDICAREPolicy [place] [address], Number: [place] [address]Myq: [id number] [phone] Date:2016-02-27 - () 0479-69-99VS [address] [place] [address]HY: 07/16/2017 Secondary [facility] Insurance:HUMANA ERWINDOB: Repository MANAGED [id number] MEDICAREPolicy [place] Number: [place], [id number] [place] [address]Php: Date:5141-27-63TK [address] [place] [address] () [address]FB: 07/16/2017 Tertiary NOT GIVENUNK [facility] Insurance:HCAP/CHARIT Repository YPolicy Number: Effective Date:2016-07-27 - 2016-09-22 07/16/2017 Tertiary [facility] Insurance:HCAP/CHARIT ERWINDOB: Repository YPolicy Number: [id number] [facility] Date:2016-09-22 - [facility], 2017-03-25 [place] [address]Ztn: (HP) 07/16/2017 Tertiary [facility] Insurance:HCAP/CHARIT ERWINDOB: Repository YPolicy Number: [id number] [place] Date:2017-03-21 [facility], 2017-09-18 [place] [address]Jfe: (HP) 07/13/2017 ELBERT R Primary [facility] ERWINDOB: Insurance:HUMANA ERWINDOB: Repository MANAGED [id number] [place] MEDICAREPolicy [place], Number: [place] [address]Tcw: [id number] [phone] Date:2016-02-27 - () 3658-62-49YN [address] [place] [address]SA: 07/13/2017 Secondary [facility] Insurance:HUMANA ERWINDOB: Repository MANAGED [id number] MEDICAREPolicy [place] Number: [place] [id number] [place] [address]Swd: Date:6676-47-21AW [address] [place] [address] () [address]WN: 07/13/2017 [facility]:HCAP/CHARIT Repository YPolicy Number: Effective Date:2016-07-27 - 2016-09-22 07/13/2017 Tertiary [facility] Insurance:HCAP/CHARIT ERWINDOB: Repository YPolicy Number: [id number] [place] Date:2016-09-22 - [place], 2017-03-25 [place] [address]Hxp: (HP) 07/13/2017 Tertiary [facility] Insurance:HCAP/CHARIT ERWINDOB: Repository YPolicy Number: [id number] [place] Date:2017-03-21 - [place], 2017-09-18 [place] [address]Vbq: (HP) 07/11/2017 ELBERT R Primary [facility] ERWINDOB: Insurance:HUMANA ERWINDOB: Repository MANAGED [id number] [place] MEDICAREPolicy [place] [address], Number: [place] [address]Cnp: [id number] Date:2016-02-27 - (HP) 5666-22-67VA [address] [place] [address]ZR: 07/11/2017 Secondary [facility] Insurance:HUMANA ERWINDOB: Repository MANAGED [id number] MEDICAREPolicy [place] Number: [place], [id number] [place] [address]Rqs: Date:6284-57-05MK [address] [place] [address] (HP) [address]IA: 07/11/2017 [facility]ertiary [facility] Insurance:HCAP/CHARIT Repository YPolicy Number: Effective Date:2016-07-27 - 2016-09-22 07/11/2017 Tertiary [facility] Insurance:HCAP/CHARIT ERWINDOB: Repository YPolicy Number: [id number] [place] Date:2016-09-22 - [facility], 2017-03-25 [place] [address]Mbn: (HP) 07/11/2017 Tertiary [facility] Insurance:HCAP/CHARIT ERWINDOB: Repository YPolicy Number: [id number] [place] Date:2017-03-21 - [facility], 2017-09-18 [place] [address]Zqa: (HP) 07/10/2017 ELBERT R Primary [facility] ERWINDOB: Insurance:HUMANA ERWINDOB: Repository MANAGED [id number] [place] MEDICAREPolicy [place] [address], Number: [place] [address]Nst: [id number] Date:2016-02-27 - (HP) 4118-01-71RF [address] [place] [address]FQ: 07/10/2017 Secondary [facility] Insurance:HUMANA ERWINDOB: Repository MANAGED [id number] MEDICAREPolicy [place] Number: [place] [id number] [place] [address]Svk: Date:5662-81-58PB [address] [place] [address] (HP) [address]CW: 07/10/2017 Tertiary NOT [facility] Insurance:HCAP/CHARIT Repository YPolicy Number: Effective Date:2016-07-27 - 2016-09-22 07/10/2017 Tertiary [facility] Insurance:HCAP/CHARIT ERWINDOB: Repository YPolicy Number: [id number] [place] Date:2016-09-22 - [facility], 2017-03-25 [place] [address]Qzu: () 07/10/2017 Tertiary [facility] Insurance:HCAP/CHARIT ERWINDOB: Repository YPolicy Number: [id number] [place] Date:2017-03-21 - [facility], 2017-09-18 [place] [address]Ltl: () 07/09/2017 ELBERT R Primary [facility] ERWINDOB: Insurance:HUMANA ERWINDOB: Repository MANAGED [id number] [place] MEDICAREPolicy [place] [address], Number: [place] [address]Aed: [id number] Date:2016-02-27 - (HP) 4994-56-39NK [address] [place] [address]OI: 07/09/2017 Secondary [facility] Insurance:HUMANA ERWINDOB: Repository MANAGED [id number] MEDICAREPolicy [place] Number: Jose [id number] [place] [address]Lge: Date:0054-29-21FS [address] [place] [address] (HP) [address]FR: 07/09/2017 Tertiary [facility] Insurance:HCAP/CHARIT Repository YPolicy Number: Effective Date:2016-07-27 - 2016-09-22 07/09/2017 Tertiary [facility] Insurance:HCAP/CHARIT ERWINDOB: Repository YPolicy Number: [id number] [place] Date:2016-09-22 - [facility], 2017-03-25 [place] [address]See: (HP) 07/09/2017 Tertiary [facility] Insurance:HCAP/CHARIT ERWINDOB: Repository YPolicy Number: [id number] [place] Date:2017-03-21 - [facility], 2017-09-18 [place] [address]Xvw: (HP) 07/06/2017 [place] [facility] ERWINDOB: Insurance:HUMANA ERWINDOB: Repository MANAGED [id number] [place] MEDIC[place], Number: [place], [place] [address]Hks: [id number] [phone] Date:2016-02-27 - (HP) [id number] [address] [place] [phone]: 07/06/2017 Secondary [facility] Insurance:HUMANA ERWINDOB: Repository MANAGED [id number] MEDICAREPolicy [place] Number: [place] [id number] [place] [address]Drr: Date:[id number] [address] [place] [address] (HP) [phone]: 07/06/2017 Tertiary NOT GIVENUNK [facility] Insurance:HCAP/CHARIT Repository YPolicy Number: Effective Date:2016-07-27 - 2016-09-22 07/06/2017 Tertiary [place] [facility] Insurance:HCAP/CHARIT ERWINDOB: Repository YPolicy Number: [id number] [place] Date:2016-09-22 - [facility], 2017-03-25 [place] [address]Aub: (HP) 07/06/2017 Tertiary [place] R [facility] Insurance:HCAP/CHARIT ERWINDOB: Repository YPolicy Number: [id number] [place] Date:2017-03-21 - [facility], 2017-09-18 [place] [address]Brd: (HP) 07/05/2017 [place] [facility] ERWINDOB: Insurance:HUMANA ERWINDOB: Repository MANAGED [id number] [place], [place]: [place] [address]Rfm: [id number] Date:2016-02-27 - () [id number] [address] [place] [phone]: 07/05/2017 Secondary [facility] Insurance:HUMANA ERWINDOB: Repository MANAGED [id number] MEDICAREPolicy [place] Number: [place], [id number] [place] [address]Vnk: Date:[id number] [address] [place] [address] () [address]JT: 07/05/2017 Tertiary NOT GIVENUNK [facility] Insurance:HCAP/CHARIT Repository YPolicy Number: Effective Date:2016-07-27 - 2016-09-22 07/05/2017 Tertiary [facility] Insurance:HCAP/CHARIT ERWINDOB: Repository YPolicy Number: [id number] [place] Date:2016-09-22 - [facility], 2017-03-25 [place] [address]Nsw: (HP) 07/05/2017 Tertiary [facility] Insurance:HCAP/CHARIT ERWINDOB: Repository YPolicy Number: [id number] [place] Date:2017-03-21 [facility], 2017-09-18 [place] [address]Bcc: (HP) 07/04/2017 EL[place]ERT R [facility] ERWINDOB: Insurance:HUMANA ERWINDOB: Repository MANAGED [id number] [place] MED[place] [address], Number: [place] [address]Dup: [id number] Date:2016-02-27 - () 5309-93-84IU [address] [place] [address]MQ: 07/04/2017 Secondary [facility] Insurance:HUMANA ERWINDOB: Repository MANAGED [id number] MEDICAREPolicy [place] Number: [place], [id number] [place] [address]Fjq: Date:7013-39-69VA [address] [place] [address] (HP) [address]OX: 07/04/2017 Tertiary NOT [facility] Insurance:HCAP/CHARIT Repository YPolicy Number: Effective Date:2016-07-27 - 2016-09-22 07/04/2017 Tertiary [facility] Insurance:HCAP/CHARIT ERWINDOB: Repository YPolicy Number: [id number] [place] Date:2016-09-22 - [facility], 2017-03-25 [place] [address]Gti: (HP) 07/04/2017 Tertiary [facility] Insurance:HCAP/CHARIT ERWINDOB: Repository YPolicy Number: [id number] [place] Date:2017-03-21 [facility], 2017-09-18 [place] [address]Xwb: (HP) 07/03/2017 [facility]: Insurance:HUMANA ERWINDOB: Repository MANAGED [id number] [place] MED[place] [address], Number: [place] [address]Sgr: [id number] Date:2016-02-27 - (HP) 1407-28-48SS [address] [place] [address]WC: 07/03/2017 Secondary [facility] Insurance:HUMANA ERWINDOB: Repository MANAGED [id number] MEDICAREPolicy [place] Number: [place], [id number] [place] [address]Fpd: Date:8023-67-55AO [address] [place] [address] (HP) [address]SZ: 07/03/2017 Tertiary NOT GIVENUNK [facility] Insurance:HCAP/CHARIT Repository YPolicy Number: Effective Date:2016-07-27 - 2016-09-22 07/03/2017 Tertiary [facility] Insurance:HCAP/CHARIT ERWINDOB: Repository YPolicy Number: [id number] [place] Date:2016-09-22 - [facility], 2017-03-25 [place] [address]Ewo: (HP) 07/03/2017 Tertiary [facility] Insurance:HCAP/CHARIT ERWINDOB: Repository YPolicy Number: [id number] [place] Date:2017-03-21 - [facility], 2017-09-18 [place] [address]Cbu: (HP) 07/02/2017 [facility] ER[facility]OB: Insurance:HUMANA ERWINDOB: Repository MANAGED [id number] [place] MEDICARE[place] [address], Number: [place] [address]Ufk: [id number] [place] [address]Vpg: Date:9322-04-31UV [address] (HP) [address] [place] [address] (HP) [address]SH: 07/02/2017 Secondary [facility] Insurance:HUMANA ERWINDOB: Repository MANAGED [id number] MEDICAREPolicy [place] Number: [place] [id number] [place] [address]Gxe: Date:9900-49-04JM [address] [place] [address] (HP) [address]DI: 07/02/2017 Tertiary [facility] Insurance:HCAP/CHARIT ERWINDOB: Repository [facility] Number: [id number] Mental Health [facility] Date:2017-03-21 - [facility], 2017-09-18 [place] [address]Bos: (HP) 07/02/2017 [facility] R [facility] ERWINDOB: Insurance:HUMANA ERWINDOB: Repository MANAGED [id number] [place] MEDICAREPolicy [place] [address], Number: [place] [address]Kkt: [id number] Date:2016-02-27 - (HP) 0127-38-37WN [address] [place] [address]BH: 07/02/2017 Secondary [facility] Insurance:HUMANA ERWINDOB: Repository MANAGED [id number] MEDICAREPolicy [place] Number: [place] [id number] [place] [address]Zdk: Date:0993-05-06PJ [address] [place] [address] (HP) [address]PO: 07/02/2017 Tertiary NOT [facility] Insurance:HCAP/CHARIT Repository YPolicy Number: Effective Date:2016-07-27 - 2016-09-22 07/02/2017 Tertiary [facility] Insurance:HCAP/CHARIT ERWINDOB: Repository YPolicy Number: [id number] [place] Date:2016-09-22 - [facility], 2017-03-25 [place] [address]Fin: (HP) 07/02/2017 Tertiary [facility] Insurance:HCAP/CHARIT ERWINDOB: Repository YPolicy Number: [id number] [place] Date:2017-03-21 - [facility], 2017-09-18 [place] [address]Puj: (HP) 07/02/2017 [facility] R [facility] ERWINDOB: Insurance:HUMANA ERWINDOB: Repository MANAGED [id number] [place] MEDICAREPolicy [place] [address], Number: [place] [address]Llp: [id number] [place] [address]Wjc: Date:9910-16-33DL [address] (HP) [address] [place] [address] () [address]UO: 07/02/2017 Secondary [facility] Insurance:HUMANA ERWINDOB: Repository MANAGED [id number] MEDICAREPolicy [place] Number: [place], [id number] [place] [address]Rnb: Date:0464-00-67YQ [address] [place] [address] (HP) [address]CV: 07/02/2017 Tertiary [facility] Insurance:HCAP/CHARIT ERWINDOB: Repository YPolicy Number: [id number] [place] Date:2017-03-21 - [facility], 2017-09-18 [place] [address]Xbu: (HP) 06/29/2017 [facility] R [facility] ERWINDOB: Insurance:HUMANA ERWINDOB: Repository MANAGED [id number] [place] MEDICAREPolicy [place] [address], Number: [place] [address]Hyh: [id number] Date:2016-02-27 - (HP) 8971-38-80OM [address] [place] [address]AJ: 06/29/2017 Secondary [facility] Insurance:HUMANA ERWINDOB: Repository MANAGED [id number] MEDICAREPolicy [place] Number: [place], [id number] [place] [address]Gee: Date:9605-77-55IS [address] [place] [address] () [address]NE: 06/29/2017 [facility]/CHARIT Repository YPolicy Number: Effective Date:2016-07-27 - 2016-09-22 06/29/2017 Tertiary [facility] Insurance:HCAP/CHARIT ERWINDOB: Repository YPolicy Number: [id number] [place] Date:2016-09-22[facility], 2017-03-25 [place] [address]Hiy: (HP) 06/29/2017 Tertiary [facility] Insurance:HCAP/CHARIT ERWINDOB: Repository YPolicy Number: [id number] [place] Date:2017-03-21 - [facility], 2017-09-18 [place] [address]Idb: (HP) 06/29/2017 EL[place]ERT R [facility] ERWINDOB: Insurance:HUMANA ERWINDOB: Repository MANAGED [id number] [place] MEDICAREPolicy [place] [address], Number: [place] [address]Ccj: [id number] [place] [address]Ujk: Date:0702-19-20UD [address]OX (HP) [address] [place] [address] () [address]HK: 06/29/2017 Secondary [facility] Insurance:HUMANA ERWINDOB: Repository MANAGED [id number] MEDICAREPolicy [place] Number: [place] [id number] [place] [address]Wdl: Date:8500-17-19QB [address] [place] [address] (HP) [address]PX: 06/29/2017 Tertiary [facility] Insurance:HCAP/CHARIT ERWINDOB: Repository YPolicy Number: [id number] Mental [facility] Date:2017-03-21 - [facility], 2017-09-18 [place] [address]Iij: (HP) 06/28/2017 [place] R [facility] ERWINDOB: Insurance:HUMANA ERWINDOB: Repository MANAGED [id number] [place] MEDICAREPolicy [place] [address], Number: [place] [address]Wpt: [id number] Date:2016-02-27 - (HP) 2103-77-12LK [address] [place] [address]FJ: 06/28/2017 Secondary [facility] Insurance:HUMANA ERWINDOB: Repository MANAGED [id number] MEDICAREPolicy [place] Number: [place] [id number] [place] [address]Klb: Date:1141-35-01BJ [address] [place] [address] (HP) [address]CV: 06/28/2017 Tertiary [facility] Insurance:HCAP/CHARIT Repository YPolicy Number: Effective Date:2016-07-27 - 2016-09-22 06/28/2017 Tertiary EL[facility]ERT R [facility] Insurance:HCAP/CHARIT ERWINDOB: Repository YPolicy Number: [id number] [place] Date:2016-09-22 [facility], 2017-03-25 [place] [address]Swq: (HP) 06/28/2017 Tertiary EL[place]ERT R [facility] Insurance:HCAP/CHARIT ERWINDOB: Repository YPolicy Number: [id number] [place] Date:2017-03-21 - [facility], 2017-09-18 [place] [address]Svh: (HP) 06/27/2017 EL[facility]ERT R [facility] ERWINDOB: Insurance:HUMANA ERWINDOB: Repository MANAGED [id number] [place] MEDICAREPolicy [place] [address], Number: [place] [address]Ivt: [id number] Date:2016-02-27 - (HP) 0755-73-21CK [address] [place] [address]QL: 06/27/2017 Secondary [facility] Insurance:HUMANA ERWINDOB: Repository MANAGED [id number] MEDICAREPolicy [place] Number: [place], [id number] [place] [address]Mfn: Date:5955-18-10TN [address] [place] [address] (HP) [address]LC: 06/27/2017 Tertiary NOT [facility] Insurance:HCAP/CHARIT Repository YPolicy Number: Effective Date:2016-07-27 - 2016-09-22 06/27/2017 [facility]:HCAP/CHARIT ERWINDOB: Repository YPolicy Number: [id number] [place] Date:2016-09-22 [facility], 2017-03-25 [place] [address]Yyg: (HP) 06/27/2017 Tertiary [facility] Insurance:HCAP/CHARIT ERWINDOB: Repository YPolicy Number: [id number] [place] Date:2017-03-21[facility], 2017-09-18 [place] [address]Xml: (HP) 06/26/2017 [facility] R [facility] ERWINDOB: Insurance:HUMANA ERWINDOB: Repository MANAGED [id number] [place] MEDICAREPolicy [place] [address], Number: [place] [address]Cam: [id number] Date:2016-02-27 - (HP) 0444-09-21ZJ [address] [place] [address]II: 06/26/2017 Secondary [facility] Insurance:HUMANA ERWINDOB: Repository MANAGED [id number] MEDICAREPolicy [place] Number: [place], [id number] [place] [address]Sei: Date:1095-94-61RM [address] [place] [address] (HP) [address]BG: 06/26/2017 Tertiary NOT [facility] Insurance:HCAP/CHARIT Repository YPolicy Number: Effective Date:2016-07-27 - 2016-09-22 06/26/2017 Tertiary [facility] Insurance:HCAP/CHARIT ERWINDOB: Repository YPolicy Number: [id number] [place] Date:2016-09-22[place], 2017-03-25 [place] [address]Ghc: (HP) 06/26/2017 Tertiary [facility] Insurance:HCAP/CHARIT ERWINDOB: Repository YPolicy Number: [id number] [place] Date:2017-03-21 - [facility], 2017-09-18 [place] [address]Ado: (HP) 06/25/2017 [facility] R [facility] ERWINDOB: Insurance:HUMANA ERWINDOB: Repository MANAGED [id number] [place] MEDICAREPolicy [place] [address], Number: [place] [address]Zkw: [id number] Date:2016-02-27 - (HP) 7505-83-26QQ [address] [place] [address]LQ: 06/25/2017 Secondary [facility] Insurance:HUMANA ERWINDOB: Repository MANAGED [id number] MEDICAREPolicy [place] Number: [place], [id number] [place] [address]Bqh: Date:3345-42-44MH [address] [place] [address] (HP) [address]HH: 06/25/2017 Tertiary [facility] Insurance:HCAP/CHARIT Repository YPolicy Number: Effective Date:2016-07-27 - 2016-09-22 06/25/2017 Tertiary [facility] Insurance:HCAP/CHARIT ERWINDOB: Repository YPolicy Number: [id number] [place] Date:2016-09-22 - [facility], 2017-03-25 [place] [address]Wer: (HP) 06/25/2017 Tertiary [facility] Insurance:HCAP/CHARIT ERWINDOB: Repository YPolicy Number: [id number] [place] Date:2017-03-21 - [facility], 2017-09-18 [place] [address]Jek: (HP) 06/22/2017 [facility] R [facility] ERWINDOB: Insurance:HUMANA ERWINDOB: Repository MANAGED [id number] [place] MEDICAREPolicy [place] [address], Number: [place] [address]Bpq: [id number] Date:2016-02-27 - (HP) 7054-75-28BD [address] [place] [address]YY: 06/22/2017 Secondary [facility] Insurance:HUMANA ERWINDOB: Repository MANAGED [id number] MEDICAREPolicy [place] Number: [place], [id number] [place] [address]Zsq: Date:5042-61-06OS [address] [place] [address] (HP) [address]KH: 06/22/2017 Tertiary [facility] Insurance:HCAP/CHARIT Repository YPolicy Number: Effective Date:2016-07-27 - 2016-09-22 06/22/2017 Tertiary [facility] Insurance:HCAP/CHARIT ERWINDOB: Repository YPolicy Number: [id number] [place] Date:2016-09-22 - [facility], 2017-03-25 [place] [address]Mot: (HP) 06/22/2017 Tertiary [facility] Insurance:HCAP/CHARIT ERWINDOB: Repository YPolicy Number: [id number] [place] Date:2017-03-21 - [facility], 2017-09-18 [place] [address]Mlr: (HP) 06/21/2017 [facility] R [facility] ERWINDOB: Insurance:HUMANA ERWINDOB: Repository MANAGED [id number] [place] MEDICAREPolicy [place] [address], Number: [place], [place] [address]Nyn: [id number] Date:2016-02-27 - (HP) 1642-25-76RK [address] [place] [address]VT: 06/21/2017 Secondary [facility] Insurance:HUMANA ERWINDOB: Repository MANAGED [id number] MEDICAREPolicy [place] Number: [place] [id number] [place] [address]Bqp: Date:2618-87-19OW [address] [place] [address] (HP) [address]JY: 06/21/2017 [facility]:HCAP/CHARIT Repository YPolicy Number: Effective Date:2016-07-27 - 2016-09-22 06/21/2017 Tertiary [facility] Insurance:HCAP/CHARIT ERWINDOB: Repository YPolicy Number: [id number] [place] Date:2016-09-22 - [facility], 2017-03-25 [place] [address]Wtk: (HP) 06/21/2017 Tertiary [facility] Insurance:HCAP/CHARIT ERWINDOB: Repository YPolicy Number: [id number] [place] Date:2017-03-21 - [facility], 2017-09-18 [place] [address]Jcy: (HP) 06/20/2017 [place] [facility] ERWINDOB: Insurance:HUMANA ERWINDOB: Repository MANAGED [id number] [place] MEDICAREPolicy [place] [address], Number: [place] [address]Iow: [id number] Date:2016-02-27 - (HP) 4356-89-96IG [address] [place] [address]EO: 06/20/2017 Secondary [facility] Insurance:HUMANA ERWINDOB: Repository MANAGED [id number] MEDICAREPolicy [place] Number: [place] [id number] [place] [address]Xuy: Date:1758-49-57IH [address] [place] [address] () [address]MN: 06/20/2017 Tertiary NOT GIVENUNK [facility] Insurance:HCAP/CHARIT Repository YPolicy Number: Effective Date:2016-07-27 - 2016-09-22 06/20/2017 Tertiary [facility] Insurance:HCAP/CHARIT ERWINDOB: Repository YPolicy Number: [id number] [place] Date:2016-09-22 - [facility], 2017-03-25 [place] [address]Eon: (HP) 06/20/2017 Tertiary [facility]ERT R [facility] Insurance:HCAP/CHARIT ERWINDOB: Repository YPolicy Number: [id number] [place] Date:2017-03-21 - [facility], 2017-09-18 [place] [address]Yqc: (HP) 06/19/2017 [place] R [facility] ERWINDOB: Insurance:HUMANA ERWINDOB: Repository MANAGED [id number] [place] MEDICAREPolicy [place] [address], Number: [place], [place] [address]Nct: [id number] Date:2016-02-27 - (HP) 9677-99-99PO [address] [place] [address]HG: 06/19/2017 Secondary [facility] Insurance:HUMANA ERWINDOB: Repository MANAGED [id number] MEDICAREPolicy [place] Number: COURTDESHAWN, [id number] [place] [address]Hww: Date:8272-51-82WJ [address] [place] [address] () [address]BU: 06/19/2017 Tertiary NOT GIVENUNK [facility] Insurance:HCAP/CHARIT Repository YPolicy Number: Effective Date:2016-07-27 - 2016-09-22 06/19/2017 Tertiary [facility] Insurance:HCAP/CHARIT ERWINDOB: Repository YPolicy Number: [id number] [place] Date:2016-09-22 [facility], 2017-03-25 [place] [address]Jbo: (HP) 06/19/2017 Tertiary [facility] R [facility] Insurance:HCAP/CHARIT ERWINDOB: Repository YPolicy Number: [id number] [place] Date:2017-03-21 [facility], 2017-09-18 [place] [address]Tnc: (HP) 06/18/2017 EL[place]ERT R Primary [facility] R [facility] ERWINDOB: Insurance:HUMANA ERWINDOB: Repository MANAGED [id number] [place] MEDICAREPolicy [place] [address], Number: [place] [address]Kda: [id number] [place] [address]Gha: Date:2113-29-75NE BOX (HP) [address] [place] [address] (HP) [address]IN: 06/18/2017 Secondary EL[facility]ERT R [facility] Insurance:HUMANA ERWINDOB: Repository MANAGED [id number] MEDICAREPolicy [place] Number: [place] [id number] [place] [address]Fun: Date:7339-85-44VT [address] [place] [address] (HP) [address]DT: 06/18/2017 Tertiary [facility] R [facility] Insurance:HCAP/CHARIT ERWINDOB: Repository YPolicy Number: [id number] [place] Date:2017-03-21 [facility], 2017-09-18 [place] [address]Laa: (HP) 06/18/2017 [place] R Primary [facility] R [facility] ERWINDOB: Insurance:HUMANA ERWINDOB: Repository MANAGED [id number] [place] MEDICAREPolicy [place] [address], Number: [place] [address]Txd: [id number] [place] [address]Tsn: Date:2661-96-17KO [address] (HP) [address] [place] [address] () [address]YG: 06/18/2017 Secondary [facility] Insurance:HUMANA ERWINDOB: Repository MANAGED [id number] MEDICAREPolicy [place] Number: [place] [id number] [place] [address]Oxc: Date:4748-84-93WF [address] [place] [address] (HP) [address]IJ: 06/18/2017 Tertiary [facility] Insurance:HCAP/CHARIT ERWINDOB: Repository YPst. [facility] hospitaly Number: [id number] Mental Health [facility] Date:2017-03-21 - [facility], 2017-09-18 [place] [address]Fmk: (HP) 06/15/2017 [place] R [facility] ERWINDOB: Insurance:HUMANA ERWINDOB: Repository MANAGED [id number] [place] MEDICAREPolicy [place] [address], Number: [place] [address]Fii: [id number] Date:2016-02-27 - (HP) 3881-87-43KM [address] [place] [address]SM: 06/15/2017 Secondary [facility] Insurance:HUMANA ERWINDOB: Repository MANAGED [id number] MEDICAREPolicy [place] Number: [place] [id number] [place] [address]Tag: Date:9378-49-57PP [address] [place] [address] (HP) [address]YP: 06/15/2017 Tertiary [facility] Insurance:HCAP/CHARIT Repository YPolicy Number: Effective Date:2016-07-27 - 2016-09-22 06/15/2017 Tertiary [facility] Insurance:HCAP/CHARIT ERWINDOB: Repository YPolicy Number: [id number] [place] Date:2016-09-22 - [facility], 2017-03-25 [place] [address]Bsb: (HP) 06/15/2017 Tertiary [facility] Insurance:HCAP/CHARIT ERWINDOB: Repository YPolicy Number: [id number] [place] Date:2017-03-21 - [facility], 2017-09-18 [place] [address]Igs: (HP) 06/14/2017 [place] R [facility] ERWINDOB: Insurance:HUMANA ERWINDOB: Repository MANAGED [id number] [place] MEDICAREPolicy [place] [address], Number: [place], [place] [address]Ndi: [id number] Date:2016-02-27 - (HP) 0486-50-24IK [address] [place] [address]RG: 06/14/2017 Secondary [facility] Insurance:HUMANA ERWINDOB: Repository MANAGED [id number] MEDICAREPolicy [place] Number: [place], [id number] [place] [address]Mmi: Date:1848-58-30ST [address] [place] [address] (HP) [address]IK: 06/14/2017 Tertiary NOT GIVENUNK [facility] Insurance:HCAP/CHARIT Repository YPolicy Number: Effective Date:2016-07-27 - 2016-09-22 06/14/2017 Tertiary [facility] Insurance:HCAP/CHARIT ERWINDOB: Repository YPolicy Number: [id number] [place] Date:2016-09-22 - [facility] EM[facility], 2017-03-25 [place] [address]Xha: (HP) 06/14/2017 Tertiary [facility] Insurance:HCAP/CHARIT ERWINDOB: Repository YPolicy Number: [id number] [place] Date:2017-03-21 - [facility], 2017-09-18 [place] [address]Itx: (HP) 06/13/2017 ELBERT R Primary [facility] ERWINDOB: Insurance:HUMANA ERWINDOB: Repository MANAGED [id number] [place] MEDICAREPolicy [place] [address], Number: [id number] [address]Qnl: [id number] Date:2016-02-27 - (HP) [id number] [address] [place] [id number]: 06/13/2017 Secondary [facility] Insurance:HUMANA ERWINDOB: Repository MANAGED [id number] MEDICAREPolicy [place] Number: [place], [id number] [place] [address]Bhe: Date:[id number] [address] [place] [address] (HP) [phone]: 06/13/2017 Tertiary [facility] Insurance:HCAP/CHARIT Repository YPolicy Number: Effective Date:2016-07-27 - 2016-09-22 06/13/2017 Tertiary [facility] Insurance:HCAP/CHARIT ERWINDOB: Repository YPolicy Number: [id number] [place] Date:2016-09-22 - [facility] EM[facility], 2017-03-25 [place] [address]Xjs: (HP) 06/13/2017 Tertiary [facility] Insurance:HCAP/CHARIT ERWINDOB: Repository YPolicy Number: [id number] Date:2017-03-21 [facility] EM[facility], 2017-09-18 [place] [address]Vhu: (HP) 06/12/2017 ELBERT R [facility] ERWINDOB: Insurance:HUMANA ERWINDOB: Repository MANAGED [id number] [place] MEDICAREPolicy [place] [address], Number: [place] [address]Hzw: [id number] Date:2016-02-27 - (HP) [id number] [address] [place] [id number]: 06/12/2017 Secondary [facility] Insurance:HUMANA ERWINDOB: Repository MANAGED [id number] MEDICAREPolicy [place] Number: OMAIR[place], [id number] [place] [address]Dle: Date:6777-09-02ED [address] [place] [address] (HP) [phone]: 06/12/2017 [facility]IT Repository YPolicy Number: Effective Date:2016-07-27 - 2016-09-22 06/12/2017 Tertiary [facility] Insurance:HCAP/CHARIT ERWINDOB: Repository YPolicy Number: [id number] [place] Date:2016-09-22 - [facility], 2017-03-25 [place] [address]Lgq: (HP) 06/12/2017 Tertiary [facility] Insurance:HCAP/CHARIT ERWINDOB: Repository YPolicy Number: [id number] [place] Date:2017-03-21 - [facility], 2017-09-18 [place] [address]Ckq: (HP) 06/11/2017 ELBERT R Primary [facility] ERWINDOB: Insurance:HUMANA ERWINDOB: Repository MANAGED [id number] [place] [address], Number: [place] [address]Rqk: [id number] [place] [address]Ayq: Date:8436-87-11OW BOX (HP) [address] [place] [address] (HP) [address]FS: 06/11/2017 Secondary [place] [facility] Insurance:HUMANA ERWINDOB: Repository MANAGED [id number] MEDICAREPolicy [place] Number: [place] [id number] [place] [address]Cfy: Date:4089-50-28JL [address] [place] [address] (HP) [address]IM: 06/11/2017 Tertiary [place] [facility] Insurance:HCAP/CHARIT ERWINDOB: Repository [facility] Number: [id number] [facility] Date:2017-03-21 - [facility], 2017-09-18 [place] [address]Tbq: (HP) 06/11/2017 ELBERT R Primary [facility] ERWINDOB: Insurance:HUMANA ERWINDOB: Repository MANAGED [id number] [place] [address], Number: [place] [address]Tvm: [id number] [place] [address]Agb: Date:9657-20-82DT BOX (HP) [address] [place] [address] (HP) [address]TK: 06/11/2017 Secondary [place] [facility] Insurance:HUMANA ERWINDOB: Repository MANAGED [id number] MEDICAREPolicy [place] Number: [place] [id number] [place] [address]Yam: Date:3633-07-88WA [address] [place] [address] (HP) [address]YJ: 06/11/2017 Tertiary [place] [facility] Insurance:HCAP/CHARIT ERWINDOB: Repository YPolicy Number: [id number] [place] Date:2017-03-21 [facility], 2017-09-18 [place] [address]Ilp: (HP) 06/04/2017 EL[place]ERT R Primary [place] [facility] ERWINDOB: Insurance:HUMANA ERWINDOB: Repository MANAGED [id number] [place] [address], Number: [place] [address]Jue: [id number] [place] [address]Pce: Date:6603-30-44NI BOX (HP) [address] [place] [address] (HP) [address]XB: 06/04/2017 Secondary [place] [facility] Insurance:HCAP/CHARIT ERWINDOB: Repository YPolicy Number: [id number] Mental Health [facility] Date:2017-03-21 [facility], 2017-09-18 [place] [address]Gcl: (HP) 06/04/2017 [place] R Primary [place] [facility] ERWINDOB: Insurance:HUMANA ERWINDOB: Repository MANAGED [id number] [place] [address], Number: [place] [address]Rtd: [id number] [place] [address]Ypc: Date:1656-96-73LU BOX (HP) [address] [place] [address] (HP) [address]EO: 06/04/2017 Secondary [place] [facility] Insurance:HUMANA ERWINDOB: Repository MANAGED [id number] MEDICAREPolicy [place] Number: [place] [id number] [place] [address]Die: Date:1121-82-87KJ [address] [place] [address] () [address]CW: 06/04/2017 Tertiary [place] [facility] Insurance:HCAP/CHARIT ERWINDOB: Repository YPolicy Number: [id number] [place] Date:2017-03-21 - [facility], 2017-09-18 [place] [address]Cln: (HP) 06/01/2017 EL[place]ERT R Primary [place] [facility] ERWINDOB: Insurance:HUMANA ERWINDOB: Repository MANAGED [id number] [place] MED[place]ARE[place] [address], Number: [place] [address]Yfs: [id number] [place] [address]Aak: Date:2677-75-38II BOX () [address] [place] [address] () [address]RQ: 06/01/2017 Secondary [place] [facility] Insurance:HUMANA ERWINDOB: Repository MANAGED [id number] MEDICAREPolicy [place] Number: [place] [id number] [place] [address]Fmr: Date:8842-47-09WV [address] [place] [address] () [address]WK: 06/01/2017 Tertiary [place] [facility] Insurance:HCAP/CHARIT ERWINDOB: Repository YPolicy Number: [id number] Mental Health [facility] Date:2017-03-21 - [facility], 2017-09-18 [place] [address]Jzt: (HP) 05/28/2017 [place] R Primary [place] [facility] ERWINDOB: Insurance:HUMANA ERWINDOB: Repository MANAGED [id number] [place] MEDICARE[place] [address], Number: [place] [address]Fna: [id number] [place] [address]Kts: Date:8762-71-72JY BOX (HP) [address] [place] [address] [place] (HP) [address]FE: 05/28/2017 Secondary [place] [facility] Insurance:HUMANA ERWINDOB: Repository MANAGED [id number] MEDICAREPolicy [place] Number: [place] [id number] [place] [address]Uhc: Date:7358-49-49TQ [address] [place] [address] (HP) [address]RK: 05/28/2017 Tertiary [place] [facility] Insurance:HCAP/CHARIT ERWINDOB: Repository YPolicy Number: [id number]. Mary's Medical [facility] Date:2017-03-21 [facility], 2017-09-18 [place] [address]Eum: (HP) 05/25/2017 [place] R Primary [facility] ERWINDOB: Insurance:HUMANA ERWINDOB: Repository MANAGED [id number] [place] MED[place], Number: [place] [address]Crl: [id number] [place] [address]Hts: Date:5664-92-34KJ BOX (HP) [address] [place] [address] [place] (HP) [address]KY: 05/25/2017 Secondary [place] [facility] Insurance:HUMANA ERWINDOB: Repository MANAGED [id number] MEDICAREPolicy [place] Number: [place] [id number] [place] [address]Lcw: Date:5557-47-71DX [address] [place] [address] [place] (HP) [address]HY: 05/25/2017 Tertiary [place] [facility] Insurance:HCAP/CHARIT ERWINDOB: Repository YPolicy Number: [id number] [place] Date:2017-03-21 [facility], 2017-09-18 [place] [address]Jzn: (HP) 05/14/2017 [place] R Primary [facility] ERWINDOB: Insurance:HUMANA ERWINDOB: Repository MANAGED [id number] [place] MEDICARE[place] [address], Number: [place] [address]Zgk: [id number] [place] [address]Rqn: Date:6516-91-16FV BOX (HP) [address] [place] [address] (HP) [address]OY: 05/14/2017 Secondary [facility] Insurance:HUMANA ERWINDOB: Repository MANAGED [id number] MEDICAREPolicy [place] Number: [place] [id number] [place] [address]Qpx: Date:2904-75-27QR [address] [place] [address] (HP) [address]JL: 05/14/2017 Tertiary [facility] Insurance:HCAP/CHARIT ERWINDOB: Repository [facility] Number: [id number] Mental Health [facility] Date:2017-03-21 [facility], 2017-09-18 [place] [address]Inz: (HP) 05/07/2017 EL[place] R Primary [facility] ERWINDOB: Insurance:HUMANA ERWINDOB: Repository MANAGED [id number] [place] MEDICAREPolicy [place] [address], Number: [place] [address]Suu: [id number] [place] [address]Sfv: Date:3758-03-14ZD BOX (HP) [address] [place] [address] (HP) [address]QY: 05/07/2017 Secondary [facility] Insurance:HUMANA ERWINDOB: Repository MANAGED [id number] MEDICAREPolicy [place] Number: [place] [id number] [place] [address]Oep: Date:7153-47-31FL [address] [place] [address] (HP) [address]EX: 05/07/2017 Tertiary [place] [facility] Insurance:HCAP/CHARIT ERWINDOB: Repository YPolicy Number: [id number]. Mary's Medical Center Date:2017-03-21 - [facility], 2017-09-18 [place] [address]Gsl: (HP) 04/30/2017 [place] R Primary [place] [facility] ERWINDOB: Insurance:HUMANA ERWINDOB: Repository MANAGED [id number] [place] MEDICAREPolicy [place] [address], Number: [place] [address]Veo: [id number] [place] [address]Wow: Date:1693-73-82KK BOX (HP) [address] [place] [address] (HP) [address]DO: 04/30/2017 Secondary [place] [facility] Insurance:HUMANA ERWINDOB: Repository MANAGED [id number] MEDICAREPolicy [place] Number: [place] [id number] [place] [address]Joa: Date:5463-20-69EK [address] [place] [address] (HP) [address]IO: 04/30/2017 Tertiary [place] [facility] Insurance:HCAP/CHARIT ERWINDOB: Repository YPolicy Number: [id number]. Mary's Medical Center Date:2017-03-21 - [facility], 2017-09-18 [place] [address]Fzj: (HP) 04/26/2017 EL[place]ERT R Primary [place] R [facility] ERWINDOB: Insurance:HUMANA ERWINDOB: Repository MANAGED [id number] [place] MEDICAREPolicy [place] [address], Number: [place] [address]Dgs: [id number] [place] [address]Dyx: Date:0479-91-26TS BOX (HP) [address] [place] [address] (HP) [address]OF: 04/26/2017 Secondary [place] R [facility] Insurance:HUMANA ERWINDOB: Repository MANAGED [id number] MEDICAREPolicy [place] Number: [place] [id number] [place] [address]Rww: Date:9442-45-97KW [address] [place] [address] (HP) [address]LF: 04/26/2017 Tertiary [place] [facility] Insurance:HCAP/CHARIT ERWINDOB: Repository YPolicy Number: [id number]. Mary's Medical Center Date:2017-03-21 [facility], 2017-09-18 [place] [address]Kry: (HP) 04/25/2017 ELBERT R Primary [facility] ERWINDOB: Insurance:HUMANA ERWINDOB: Repository MANAGED [id number] [place], Number: [place] [address]Fel: [id number] [place] [address]Ezx: Date:4075-73-15FX BOX (HP) [address] [place] [address] (HP) [address]FA: 04/25/2017 Secondary [place] R [facility] Insurance:HCAP/CHARIT ERWINDOB: Repository YPolicy Number: [id number]. Mary's Medical Center Date:2017-03-21 - [facility], 2017-09-18 [place] [address]Wtr: (HP) 04/24/2017 ELBERT R Primary [facility] [facility] ERWINDOB: Insurance:HUMANA ERWINDOB: Repository MANAGED [id number] [place] MEDICARE[place], Number: [place] [address]Mvh: [id number] [place] [address]Ppb: Date:2355-22-24OR BOX (HP) [address] [place] [address] (HP) [address]CV: 04/24/2017 Secondary [facility] Insurance:HUMANA ERWINDOB: Repository MANAGED [id number] MEDICAREPolicy [place] Number: [place] [id number] [place] [address]Hfk: Date:3465-15-83CX [address] [place] [address] (HP) [address]AV: 04/24/2017 Tertiary [facility] Insurance:HCAP/CHARIT ERWINDOB: Repository [facility] Number: [id number] [place] Date:2017-03-21 - [facility], 2017-09-18 [place] [address]Iys: (HP) 04/24/2017 [place]ERT R Primary [facility] ERWINDOB: Insurance:HUMANA ERWINDOB: Repository MANAGED [id number] [place] MEDICAREPolicy [place], Number: [place] [address]Pkz: [id number] [place] [address]Dty: Date:9887-74-70WQ BOX (HP) [address] [place] [address] (HP) [address]NF: 04/24/2017 Secondary [facility] Insurance:HUMANA ERWINDOB: Repository MANAGED [id number] MEDICAREPolicy [place] Number: [place] [id number] [place] [address]Oys: Date:5248-53-48FP [address] [place] [address] (HP) [address]WV: 04/24/2017 Tertiary [place] [facility] Insurance:HCAP/CHARIT ERWINDOB: Repository YPolicy Number: [id number] [place] Date:2017-03-21 [facility], 2017-09-18 [place] [address]Hss: (HP) 04/19/2017 EL[place]ERT R Primary [place] R [facility] ERWINDOB: Insurance:HUMANA ERWINDOB: Repository MANAGED [id number] [place] MED[place]ARE[place] [address], Number: [place] [address]Lnb: [id number] [place] [address]Pxh: Date:8608-46-01KN BOX () [address] [place] [address] () [address]HU: 04/19/2017 Secondary [place] R [facility] Insurance:HUMANA ERWINDOB: Repository MANAGED [id number] MEDICAREPolicy [place] Number: [place] [id number] [place] [address]Otu: Date:5369-55-53BU [address] [place] [address] () [address]ME: 04/19/2017 Tertiary [place] [facility] Insurance:HCAP/CHARIT ERWINDOB: Repository YPolicy Number: [id number] [facility] Date:2017-03-21 - [facility], 2017-09-18 [place] [address]Rcn: (HP) 04/19/2017 EL[place]ERT R Primary [place] R [facility] ERWINDOB: Insurance:HUMANA ERWINDOB: Three Repository MANAGED [id number] [place] MEDICARE[place] [address], Number: [place] [address]Psh: [id number] [place] [address]Xso: Date:4446-20-26VC BOX (HP) [address] [place] [address] [place] (HP) [address]HF: 04/19/2017 Secondary [facility] Insurance:HUMANA ERWINDOB: Three Repository MANAGED [id number] MEDICAREPolicy [place] Number: [place] [id number] [place] [address]Dfs: Date:4926-72-52LW [address] [place] [address] (HP) [address]NT: 04/19/2017 Tertiary [facility] Insurance:HCAP/CHARIT ERWINDOB: Three Repository YPolicy Number: [id number]. Mary's Medical Center Date:2017-03-21 - [place], 2017-09-18 [place] [address]Mzt: (HP) 04/18/2017 EL[place]ERT R Primary [facility] ERWINDOB: Insurance:HUMANA ERWINDOB: Repository MANAGED [id number] [place] MEDICAREPolicy [place], Number: [place] [address]Vgr: [id number] [place] [address]Yht: Date:0327-47-18MN BOX (HP) [address] [place] [address] [place] (HP) [address]EC: 04/18/2017 Secondary [facility] Insurance:HUMANA ERWINDOB: Repository MANAGED [id number] MEDICAREPolicy [place] Number: [place] [id number] [place] [address]Vyx: Date:2345-37-45GM [address] [place] [address] [place] (HP) [address]JL: 04/18/2017 Tertiary [facility] Insurance:HCAP/CHARIT ERWINDOB: Repository YPolicy Number: [id number]. Mary's Medical Center Date:2017-03-21 - [facility], 2017-09-18 [place] [address]Sqc: () 03/30/2017 ELBERT Christina Primary ELBERT Christina [facility] ERWINDOB: Insurance:HUMANA ERWINDOB: Three Repository MANAGED [id number] [place] MEDICAREPolicy [facility], Number: [place] [address]Nbw: [id number] [place] [address]Peg: Date:3718-56-26OD BOX (HP) [address]YOQEUSTVP, [place] () [address]FB:
--- OUTSIDE RECORDS SUMMARY | 2018-05-19 09:12 | XMS RPT_ITS | Summary of Care ---
:1940 Author Organization [facility] Address [address] [place] [address] Phone Care Team Providers Name Role Phone Unavailable Primary Care Provider Unavailable Reason for Visit MRI/CAT/PET Scan (Routine) Status Reason Specialty Diagnoses / Referred By Referred To Procedures Contact Contact Pending Review Radiology Diagnoses Idiopathic acute pancreatitis, unspecified complication status Jus Allison Procedures MR Abdomen With And Without Contrast MRA Abdomen With And Without Contrast MD Ayan [address] [place] [address] Encounter Details Date Type Department Care Team Description 10/05/2016 Hospital Encounter [facility] Jus Allison Idiopathic acute Hospital MRI MD Ayan pancreatitis, [address] [place] [address] [address] [facility] [address] [place], [place] [address] [phone] Allergies Active Allergy Reactions Severity Noted Date [...] l (DULERA) 200-5 (two) times a mcg/actuation HF day. finasteride Take 1 tablet (5 30 [...] (one) 90 capsule 0 08/07/2016 08/07/2017 Active Ckw-Maoo-Plxp, capsule (12,000 (CREON) units of lipase 12,000-38,000 total) by mouth 3 -60,000 unit CpDR (three) times a capsule day with meals. omeprazole Take 1 (one) 30 capsule 11 08/18/2016 08/18/2017 Active (PRILOSEC) 40 MG capsule (40 mg capsuleIndications: total) by mouth Generalized daily. abdominal pain as of this encounter Active Problems Problem Noted Date Prostatitis, chronic 11/10/2015 BPH with obstruction/lower urinary [...] - Inhaled Oxygen Concentration - - Weight 75.8 kg (167 lb) 10/05/2016 8:46 AM EDT Height - - Body Mass Index 25.39 10/05/2016 8:46 AM EDT in this encounter Plan of Treatment Health Maintenance Due Date Last Done Comments TETANUS EVERY 10 YR 1940 ZOSTER VACCINE 2001 PNEUMOCOCCAL VACCINE AGE 65+ (1 of 2 - 2006 PCV13) SEQUENTIAL INFLUENZA VACCINE (#1) 2016 COLONOSCOPY 07/27/2021 07/27/2016, 01/12/2010 as of this encounter Results MR Abdomen With And Without Contrast (10/05/2016 9:18 AM) Specimen Performing Laboratory [facility] Impressions 1. Irregularly shaped mass in the medial aspect of the pancreatic head and uncinate process measuring up to 2.1 cm and compatible with pancreatic adenocarcinoma.?The mass causes obstruction of the pancreatic duct, but no biliary obstruction.?There is an irregular margin of the mass with the adjacent peripancreatic fat and there are a few nonspecific small lymph nodes in the peripancreatic region.?The medial margin of the mass is adjacent to the portal confluence without definite invasion.?No evidence of superior mesenteric artery involvement. 2. Mild atrophy of the pancreatic body and tail with abnormal parenchymal signal which is nonspecific, possibly representing a component of pancreatitis.?Tiny pancreatic cystic foci likely represent dilated ductal side branches. 3. Tiny hepatic cyst.?No suspicious liver lesions. 4. Tiny left lower pole renal cyst.?No suspicious renal lesions. 5. Atherosclerotic vascular disease with mild focal dilatation of the abdominal aorta. Report called to Dr. Allison at time of dictation. JRS/lab Workstation ID:? [id number] Narrative EXAMINATION: MR ABDOMEN WITH AND WITHOUT CONTRAST HISTORY: ORDERING SYSTEM PROVIDED HISTORY:?Idiopathic acute pancreatitis, unspecified complication status, TECHNOLOGIST PROVIDED HISTORY: Reason for exam:?Idiopathic acute pancreatitis Illness/Other Encounter Type: Initial Additional signs and symptoms: none ORDERING SYSTEM PROVIDED DIAGNOSIS CODES: K85.00 Idiopathic acute pancreatitis, unspecified complication status Pancreatitis. COMPARISON: CT of the abdomen and pelvis 09/11/2016. TECHNIQUE: MRI of the abdomen was performed using axial and coronal SSFP images, axial in- and jar-dn-npmfm gradient-echo T1-weighted image, axial fast spin-echo T2-weighted images, axial diffusion-weighted images with ADC maps as well as axial pre- and postcontrast T1-weighted images fat saturation and postprocessed subtraction images.?The patient received 7 mL MultiHance IV. FINDINGS: Corresponding to a previously described hypodensity in the pancreas, there is a masslike signal abnormality with hypoenhancement relative to the pancreatic parenchyma.?This is apparently causing obstruction of the main pancreatic duct which is mildly dilated in the pancreatic body and tail.?The lesion is in the medial aspect of the pancreatic head and in the uncinate process and measures approximately 2.1 x 1.7 cm on series 1003, image 59.?The lesion abuts the right margin of the proximal SMV and portal confluence without definite evidence of invasion.?The lesion is in the medial aspect of the pancreatic head and does not appear to cause biliary ductal obstruction.?There is a preserved fat plane around the superior mesenteric artery.?There are a few small lymph nodes above the level of the pancreatic head near the common hepatic artery.?One of these is suspected to measure 7 mm in short axis on series 1002, image 42.?There is also an irregular margin of the pancreatic mass with the adjacent peripancreatic fat and there are a few tiny lymph nodes which are nonspecific in the mesenteric root.?There are a few tiny cystic foci in the pancreas, one in the pancreatic tail, for example, on series 8, image 16 and another in the pancreatic neck on image 18 which may be due to dilated ductal side branches.?There is diffusely abnormal T1 hypointensity of the pancreatic body and tail which may be due to atrophic change or mild pancreatitis.?No hypervascular or hypovascular lesions are seen in the liver.?There is a tiny cyst in the anterior liver dome which is nonenhancing.?Spleen is normal in size.?Adrenal glands and kidneys are unremarkable except for a tiny left lower pole renal cyst which appears nonenhancing and measures 6 mm on series 1003, image 78.?Atherosclerotic irregularity of the abdominal aorta is noted and there is a focus of mild aneurysmal dilatation measuring up to approximately 2.1 cm. Procedure Note Interface, Rad In Leroy Cooperq - 10/05/2016 4:52 PM EDT EXAMINATION: MR ABDOMEN WITH AND WITHOUT CONTRAST HISTORY: ORDERING SYSTEM PROVIDED HISTORY: Idiopathic acute pancreatitis, unspecified complication status, TECHNOLOGIST PROVIDED HISTORY: Reason for exam: Idiopathic acute pancreatitis Illness/Other Encounter Type: Initial Additional signs and symptoms: none ORDERING SYSTEM PROVIDED DIAGNOSIS CODES: K85.00 Idiopathic acute pancreatitis, unspecified complication status Pancreatitis. COMPARISON: CT of the abdomen and pelvis 09/11/2016. TECHNIQUE: MRI of the abdomen was performed using axial and coronal SSFP images, axial in- and drp-nu-qnjgl gradient-echo T1-weighted image, axial fast spin-echo T2- weighted images, axial diffusion-weighted images with ADC maps as well as axial pre- and postcontrast T1-weighted images fat saturation and postprocessed subtraction images. The patient received 7 mL MultiHance IV. FINDINGS: Corresponding to a previously described hypodensity [...] the right margin of the proximal SMV and portal confluence without definite evidence of invasion. The [...] for a tiny left lower pole renal cyst which appears nonenhancing and measures 6 mm on series 1003, image 78. Atherosclerotic irregularity of the abdominal aorta is noted and there is a focus of mild aneurysmal dilatation measuring up to approximately 2.1 cm. IMPRESSION: 1. Irregularly shaped mass in the [...] mild focal dilatation of the abdominal aorta. Report called to Dr. Allison at time of dictation. JRS/lab Workstation ID: [id number] POC Creatinine (10/05/2016 8:39 AM) Component Value Ref Range Creatinine 0.7 (L) 0.8 - 1.3 mg/dL Specimen Performing Laboratory Blood [facility] [address] [place] [address] in this encounter Visit Diagnoses Diagnosis Idiopathic acute pancreatitis, unspecified complication status in this encounter Administered Medications Inactive Administered Medications - up to 3 most recent administrations Medication Order MAR Action Action Date Dose Rate Site gadobenate dimeglumine (MULTIHANCE) injection 7 mL 7 mL, Intravenous, Once in imaging, contrast, Starting Gemini 10/05/16 at 0847, For 1 dose Contrast Administered 10/05/2016 09:18 EDT 7 mL in this encounter Insurance Payer Benefit Plan / Group Subscriber ID Type Phone Address HUMANA MANA[facility] MEDIC[facility] O [id number] Home: [address] [place], [place] [phone] [place] [address] as of this encounter
--- OUTSIDE RECORDS SUMMARY | 2018-05-19 09:12 | XMS RPT_ITS | Summary of Care ---
:1940 Author Organization [facility] Address [address] [place] [address] Phone Care Team Providers Name Role Phone Unavailable Primary Care Provider Unavailable Reason for Referral Evaluate and Treat (Routine) Status Reason Specialty Diagnoses / Referred By Referred To Procedures Contact Contact Authorized Specialty Surgical Diagnoses Pancreatic mass Sherif Valles MD Arrese, Services Oncology 801 [facility] MD Inder Required/[address] t's Best Anand [address] [place] [id number] Phone: Fax: Evaluate and Treat (Routine) Status Reason Specialty Diagnoses / Referred By Referred To Procedures Contact Contact Authorized Specialty Gastroenterology Diagnoses Pancreatic mass Sherif Valles MD Reddy, Services 801 [facility] Raghuram Required/[address] MD Danielle nt's Best Anand [address] [facility] [address] Phone: [place], [place] [phone] Fax: MRI/CAT/PET Scan (Routine) Status Reason Specialty Diagnoses / Referred By Contact Referred To Procedures Contact Authorized Radiology Diagnoses Pancreatic mass Sherif Valles MD Procedures CT Chest Thorax With Contrast [address] [facility] [address] [place] [address] Evaluate and Treat (Urgent) Status Reason Specialty Diagnoses / Referred By Referred To Procedures Contact Contact Closed Specialty Hematology/Onco Diagnoses Pancreatic mass Hai Allison Arun, MD Services logy / Oncology Jus Botello, 801 [facility] Required/Patient MD Felton 'brad Best Interest [address] [facility] [address] [place] [phone] Phone: Fax: Reason for Visit Reason Comments Pancreatic Cancer Evaluate and Treat (Urgent) Status Reason Specialty Diagnoses / Referred By Referred To Procedures Contact Contact Closed Specialty Hematology/Onco Diagnoses Pancreatic mass Hai Allison Arun, MD Services logy / Oncology Jus Botello, 801 [facility] Required/Patient MD Felton [address] [phone] Phone: Fax: Encounter Details Date Type Department Care Team Description 10/11/2016 Office Visit [facility] Jus Allison MD [address] [place] [address] [phone] Pancreatic mass Oncology Clinic Sherif Valles MD [address] [id number] [address] [place], [place] [id number] Allergies Active Allergy Reactions Severity Noted Date [...] (one) 90 capsule 0 08/07/2016 08/07/2017 Active Kam-Uyup-Qtpi, capsule (12,000 (CREON) units of lipase 12,000-38,000 [...] Vital Sign Reading Time Taken Blood Pressure 173/80 10/11/2016 11:06 AM EDT Pulse 80 10/11/2016 11:06 AM EDT Temperature 36.6 ??C (97.9 ??F) 10/11/2016 11:06 AM EDT Respiratory Rate - - Oxygen Saturation - - Inhaled Oxygen Concentration - - Weight 75.8 kg (167 lb 3.2 oz) 10/11/2016 11:06 AM EDT Height 172.7 cm (5' 8) 10/11/2016 11:06 AM EDT Body Mass Index 25.42 10/11/2016 11:06 AM EDT in this encounter Progress Notes Sherif Valles MD - 10/11/2016 11:10 AM EDTFormatting of this note may be different from the original. [facility] 801 [facility] [phone] Hematology and Oncology Consult Note Patient Name: Elbert Canales MR #: [id number] : @ [facility] #: [id number] Date of Service: 10/11/16 Clinician: Sherif Valles MD Physicians: Jus Allison MD (Family); Jus Allison* (Referring) Reason for Referral: Pancreatic mass History of Presenting Illness: Mr Elbert Canales is 75 year old male with pmh of COPD, [...] Colonic diverticulosis without evidence of diverticulitis. 7. Rojw-ck-iphaxlnh constipation. 8. Moderate prostatomegaly. MRI Abdomen on [...] suspicious renal lesions. 5. Atherosclerotic vascular disease He is here for further evaluation today. His diarrhea is resolved, and he has minimal abdominal pain, if any, and continues to have joint pains and low back pain, which is chronic. He denies any weight loss, nausea, vomiting, constipation, etc. 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 He smokes 1 pack per day for 40 years. He occasionally drinks beer. He denies any illicit drug use. He is and has no kids. FAMILY HISTORY Significant for lung and colon cancer in the father, uterine cancer in mother, and appendiceal cancer with peritoneal metastasis in the sister. Assessment/Plan: Pancreatic mass in pancreatic head and uncinate process measuring 2.1 cm compatible with pancreatic cancer. The mass is causing obstruction of the pancreatic duct but no biliary obstruction. He does not have jaundice. He has history of pancreatitis. For further evaluation of this, we are planning to get the following: CBC, CMP, CA-19-9 level as well as referral to Gastroenterology for ERCP and EUS and referral to surgical oncology for further evaluation regarding possible resectability once it is confirmed to be pancreatic cancer. I have reviewed the CT finding, lab findings and possible etiology which is very concerning for pancreatic cancer as well as further workup and future treatment depending on other evaluation with the patient and his in detail today. We will re-evaluate him in about 2 weeks with the above testingfor further recommendation. Today, I briefly went over different mode of management including chemotherapy, surgical resection, radiation therapy, etc., which will be discussed further in detail afterabove evaluation and a definitive dagnosis. They voiced understanding with the above discussion and are agreeable with the above plan. Thank you very much for the opportunity to participate in the care of this patient.?? Please do not hesitate to call me if any questions or concerns. Review of Systems: The following system(s) were [...] or gallops. Gastro: soft, non-tender, No masses. Extremity: no clubbing, no cyanosis. Mild ankle edema. Skin: no rashes, no ecchymosis or petechiae. Neuro: alert, oriented, no focal deficits, speech normal. Psych: Pt has a normal mood and affect. Vital Signs: BP (!) 173/80 (BP Location: Right arm) Pulse 80 Temp 97.9 ??F (36.6 ??C) (Temporal) Ht 5' 8 Wt 75.8 kg (167 lb 3.2 oz) BMI 25.42 kg/m2 PMH/PSH/FH/SH: Past Medical History: Diagnosis Date ??? Arthritis ??? BPH (benign prostatic hyperplasia) ??? Cancer (HCC) skin cancer ??? Cataract ??? Chronic diarrhea current problem (07/21/16), stool specimen positive for blood ([facility]) per pt ??? Colon polyps 2010 benign ??? Complication of anesthesia difficulty waking up ??? COPD (chronic obstructive pulmonary disease) (HCC) ??? History of stress test ??? Pancreatic mass Past Surgical History: Procedure Laterality Date ??? APPENDECTOMY ??? COLONOSCOPY 2009 benign polyps found ??? COLONOSCOPY N/A 07/27/2016 Procedure: COLONOSCOPY; Surgeon: Kota Vences MD; Location: [facility]; Service: ??? PROSTATE BIOPSY ??? SINUS SURGERY [...] Inhale 2.5 L/min nightly. Historical Provider, pancrelipase, Xme-Pvfb-Ypww, (CREON) 12,000-38,000 -60,000 unit CpDR capsule Take 1 (one) capsule (12,000 units of lipase total) by mouth 3 (three) times a day with meals. 08/07/16 08/07/17 Jus Allison MD Home Medications: Outpatient Prescriptions as of 10/11/2016 Medication Sig ??? aspirin 81 MG EC tablet Take 1 tablet by mouth daily Reasons: pt states he has not been taking for a couple of weeks. ??? fluocinonide (LIDEX) 0.05 % cream Apply topically 2 (two) times a day .5 gm BID to L leg rash for 15 days. ??? mometasone-formoterol (DULERA) 200-5 mcg/actuation HFAA Inhale 2 puffs 2 (two) times a day. ??? OCEAN NASAL 0.65 % nasal spray Instill 2 sprays into each nostril as needed . ??? omeprazole (PRILOSEC) 40 MG capsule Take 1 (one) capsule (40 mg total) by mouth daily. ??? oxygen Inhale 2.5 L/min nightly. ??? alfuzosin (UROXATRAL) 10 mg 24 hr tablet Take 1 tablet (10 mg total) by mouth at bedtime. ??? diphenoxylate-atropine (LOMOTIL) 2.5-0.025 mg per tablet Take 1 tablet by mouth 4 (four) times aday as needed for diarrhea. ??? finasteride (PROSCAR) 5 mg tablet Take 1 tablet (5 mg total) by mouth daily. (Patient not taking: Reported on 10/11/2016.) ??? pancrelipase, Dgh-Getr-Jwcb, (CREON) 12,000-38,000 -60,000 unit CpDR capsule Take 1 (one) capsule (12,000 units of lipase total) by mouth 3 (three) times a day with meals. (Patient not taking: Reported on 10/11/2016.) LABS: Pertinent latest labs reviewed in EMR and discussed with patient. WBC Date Value Ref Range Status 07/13/2016 7.06 4.50 - 11.00 K/mcL Final 07/07/2014 5.35 4.50 - 11.00 K/MCL RBC Date Value Ref Range Status 07/13/2016 4.51 4.50 - 5.90 M/mcL Final 07/07/2014 4.73 4.50 - 5.90 M/MCL Hemoglobin Date Value Ref Range Status 07/13/2016 14.3 13.5 - 17.5 g/dL Final 07/07/2014 15.3 13.5 - 17.5 G/DL Hematocrit Date Value Ref Range Status 07/13/2016 42.1 41.0 - 53.0 % Final 07/07/2014 45.2 41.0 - 53.0 % MCV Date Value Ref Range Status 07/13/2016 93.3 80.0 - 100.0 fL Final 07/07/2014 95.6 80.0 - 100.0 FL MCH Date Value Ref Range Status 07/13/2016 31.7 26.0 - 34.0 pg Final 07/07/2014 32.3 26.0 - 34.0 PG MCHC Date Value Ref Range Status 07/13/2016 34.0 31.0 - 37.0 g/dL Final Platelets Date Value Ref Range Status 07/13/2016 265 150 - 400 K/mcL Final RDW Date Value Ref Range Status 07/07/2014 12.5 11.6 - 14.8 % RDW - CV Date Value Ref Range Status 07/13/2016 12.1 11.6 - 14.8 % Final Sodium Date Value Ref Range Status 07/07/2014 136 135 - 145 MMOL/L Potassium Date Value Ref Range Status 07/07/2014 4.4 3.5 - 5.1 MMOL/L Chloride Date Value Ref Range Status 07/07/2014 98 98 - 108 MMOL/L Bicarbonate Date Value Ref Range Status 07/07/2014 28 21 - 32 MMOL/L Glucose Date Value Ref Range Status 10/08/2015 111 (H) 65 - 99 mg/dL Final 07/07/2014 94 65 - 99 MG/DL BUN Date Value Ref Range Status 07/07/2014 12 8 - 25 MG/DL Creatinine Date Value Ref Range Status 10/05/2016 0.7 (L) 0.8 - 1.3 mg/dL Final Serum Creatinine Date Value Ref Range Status 01/11/2012 0.9 0.8 - 1.3 MG/DL GFR, Non Date Value Ref Range Status 01/11/2012 >60 >60 Comment: Test Units:mL/min/1.73m2 This Calculation is for Non Patients BUN/Creat Ratio Date Value Ref Range Status 07/07/2014 15.0 10.0 - 20.0 Comment: The above 18 analytes were performed by [address] [address] Ordered on: 07/07/2014, EMMA ALLISON Tests Performed at: [facility] (Unless Otherwise Specified) [address] [place] [address], [id number] - [facility] #[id number] [facility] - Order ID:[id number] Sample ID:[id number] Total Protein Date Value Ref Range Status 08/18/2016 6.7 6.0 - 8.0 g/dL Final Albumin Date Value Ref Range Status 08/18/2016 4.2 3.2 - 5.2 g/dL Final Calcium Date Value Ref Range Status 07/07/2014 10.0 8.4 - 10.2 MG/DL Alkaline Phosphatase Date Value Ref Range Status 08/18/2016 78 40 - 150 U/L Final AST Date Value Ref Range Status 08/18/2016 18 0 - 45 U/L Final ALT Date Value Ref Range Status 08/18/2016 15 0 - 40 U/L Final Total Bilirubin Date Value Ref Range Status 08/18/2016 0.5 0.0 - 1.3 mg/dL Final Diagnostic Tests: Pertinent available radiologic studies were reviewed. CT Chest Thorax With Contrast (Results Pending) Laboratory and Additional Data Reviewed: Laboratory 10/11/16 11:49 AM Microbiology 10/11/16 11:49 AM Pathology 10/11/16 11:49 AM Radiology 10/11/16 11:49 AM Cardiology 10/11/16 11:49 AM Medications 10/11/16 11:49 AM Transcriptions 10/11/16 11:49 AM Mr Abdomen With And Without Contrast Result Date: 10/05/2016 EXAMINATION: MR ABDOMEN WITH AND WITHOUT CONTRAST HISTORY: ORDERING SYSTEM PROVIDED HISTORY: Idiopathic acute pancreatitis, unspecified complication status, TECHNOLOGIST PROVIDED HISTORY: Reason forexam: Idiopathic acute pancreatitis Illness/Other Encounter Type: Initial Additional signs and sympt oms: none ORDERING SYSTEM PROVIDED DIAGNOSIS CODES: K85.00 Idiopathic acute pancreatitis, unspecified complication status Pancreatitis. COMPARISON: CT of the abdomen and pelvis 09/11/2016. TECHNIQUE: MRI of the abdomen was performed using axial and coronal SSFP images, axial in- and kyt-pe-vzgtq gradient-echo T1-weighted image, axial fast spin-echo T2-weighted images, axial diffusion- weighted images with ADC maps as well as [...] tail. The lesion is in the medial aspectof the pancreatic head and in the uncinate process and measures approximately 2.1 x 1.7 cm on [id number], image 59. The lesion abuts the right margin of the proximal SMV and portal confluence withoutdefinite evidence of invasion. The lesion is in [...] 78. Atherosclerotic irregularity of the abdominal aorta isnoted and there is a focus of mild aneurysmal dilatation measuring up to approximately 2.1 cm. 1. Irregularly shaped mass in the medial [...] atrophy of the pancreatic body and tail withabnormal parenchymal signal which is nonspecific, possibly representing [...] at time of dictation. JRS/lab Workstation ID: [id number] Follow Up: Return in about 2 weeks (around 10/25/2016) for Office Visit, Labs - See Treatment Plan, Imaging - See orders, Referral. Orders Placed This Encounter Procedures ??? CT Chest Thorax With Contrast Standing Status: Future Standing Expiration Date: 10/12/2017 Scheduling Instructions: If patient is allergic to contrast, appointment must be scheduled in a hospital CT dept.: Alea, Yari Frost, Briseyda Caldwell, Blake Melendrez, [place] or [facility], Sunday thru Sunday only. If the patient has a contrast allergy, please contact [facility] Radiology Chart compilers for assistance with ordering Radiology Premedication Protocol. Schedule at the main hospital if patient is also having a procedure done at the hospital (ex: NucMed Scan). CT Abdomen and or Pelvis with MRI - schedule CT at least 2 hours before or 2 hours after MRI. NEW: If patient age under 18 years, do not schedule at [facility] Imaging Doctors - call the department at [phone] when scheduling any child from the age of 6 months to 5 years to see if medication is necessary [place] - no age limit Call CT [phone] before scheduling a CTA and a CT on the same day - there is a chance thesetwo tests cannot be performed on the same day. Do not schedule any CT with contrast after 5pm. The last available with contrast CT is 4:30pm. [place] - age limit 16 and over [place] - when the caller is requesting [place] for their CT please scan [place] as well. IfBing appointment is sooner notify caller and ask if they would like that slot. Order Specific Question: Reason for Exam: Answer: pancreatic mass, very suspicious for pancreatic cancer for staging evaluation. Order Specific Question: Does the patient require moderate sedation? Answer: No Order Specific Question: Does this exam require IV hydration? Answer: No ??? CA 19-9 ??? CBC and Differential ??? Comprehensive Metabolic Panel ??? Ambulatory referral to Gastroenterology Standing Status: Future Standing Expiration Date: 10/11/2017 Referral Priority: Routine Referral Type: Evaluate and Treat Referral Reason: Specialty Services Required/Patient's Best Interest Requested Specialty: Gastroenterology Number of Visits Requested: 1 ??? Ambulatory referral to Surgical Oncology Standing Status: Future Standing Expiration Date: 10/11/2017 Referral Priority: Routine Referral Type: Evaluate and Treat Referral Reason: Specialty Services Required/Patient's Best Interest Number of Visits Requested: 1 ? Sherif Valles MD [facility] Cancer Physicians [facility] [address] [facility], [address] [place] [address] [phone] CC: Jus Allison MD in this encounter Plan of Treatment Upcoming Encounters Date Type Specialty Care Team Description 10/16/2016 Appointment Radiology Sherif Valles MD 801 [facility] [address] [place], [place] [phone] 10/25/2016 Office Visit Oncology Sherif Valles MD 801 [facility] [address] [place], [place] [phone] Pending Results Name Priority Associated Diagnoses Date/Time CA 19-9 Routine Pancreatic mass 10/11/2016 12:02 PM EDT Scheduled Tests Name Priority Associated Diagnoses Order Schedule CT Chest Thorax With Routine Pancreatic mass Expected: 10/11/2016 Contrast (Approximate), Expires: 10/12/2017 Scheduled Referrals Name Priority Associated Diagnoses Order Schedule Ambulatory referral to Routine Pancreatic mass Expected: 10/11/2016 Gastroenterology (Approximate), Expires: 10/11/2017 Ambulatory referral to Surgical Routine Pancreatic mass Expected: 10/18/2016 Oncology (Approximate), Expires: 10/11/2017 Health Maintenance Due Date Last Done Comments TETANUS EVERY 10 YR 1940 ZOSTER VACCINE 2001 PNEUMOCOCCAL VACCINE AGE 65+ (1 of 2 - 2006 PCV13) SEQUENTIAL INFLUENZA VACCINE (#1) 2016 COLONOSCOPY 07/27/2021 07/27/2016, 01/12/2010 as of this encounter Results CBC Auto Differential (10/11/2016 12:02 PM) Component Value Ref Range WBC 6.45 4.50 - 11.00 K/mcL RBC 4.71 4.50 - 5.90 M/mcL Hemoglobin 14.8 13.5 - 17.5 g/dL Hematocrit 43.5 41.0 - 53.0 % MCV 92.4 80.0 - 100.0 fL MCH 31.4 26.0 - 34.0 pg MCHC 34.0 31.0 - 37.0 g/dL Platelets 198 150 - 400 K/mcL RDW - CV 12.8 11.6 - 14.8 % MPV 9.0 9.0 - 15.5 fL Neutrophils 56.1 % Lymphocytes 31.8 % Monocytes 8.2 % Eosinophils 3.1 % Basophils 0.8 % Neutrophils Abs 3.62 1.70 - 7.00 K/mcL Lymphocytes Abs 2.05 0.90 - 4.00 K/mcL Monocytes Abs 0.53 0.30 - 0.90 K/mcL Eosinophils Abs 0.20 0.00 - 0.50 K/mcL Basophils Abs 0.05 0.00 - 0.30 K/mcL Nucleated RBC 0.0 % Nucleated RBC Abs 0.00 0.00 - 0.00 K/mcL Specimen Performing Laboratory Blood [facility] [address] [place] [address] Comprehensive Metabolic Panel (10/11/2016 12:02 PM) Component Value Ref Range Sodium 134 (L) 135 - 145 mmol/L Potassium 4.6 3.5 - 5.1 mmol/L Chloride 96 (L) 98 - 108 mmol/L Bicarbonate 29 21 - 32 mmol/L Anion Gap 14 10 - 20 mmol/L Glucose 124 (H) 65 - 99 mg/dL BUN 9 8 - 25 mg/dL Creatinine 0.76 (L) 0.80 - 1.30 mg/dL eGFR 89 >=60 mL/min/1.73 m2 BUN/Creatinine Ratio 11.8 10.0 - 20.0 Total Protein 7.4 6.0 - 8.0 g/dL Albumin 4.3 3.2 - 5.2 g/dL Calcium 9.4 8.4 - 10.2 mg/dL Alkaline Phosphatase 76 40 - 150 U/L AST 17 0 - 45 U/L ALT 13 0 - 40 U/L Total Bilirubin 0.5 0.0 - 1.3 mg/dL Specimen Performing Laboratory Blood [facility] [address] [place] [address] Narrative The eGFR should be used for monitoring renal function only and not for medication dosing. CBC and Differential (10/11/2016 12:02 PM) Specimen Performing Laboratory Blood Narrative The following orders were created for panel order CBC and Differential. Procedure? Abnormality? Status? ---------? ------? CBC Auto Differential[[id number]]?Final result? Please view results for these tests on the individual orders. in this encounter Visit Diagnoses Diagnosis Pancreatic mass Unspecified disease of pancreas in this encounter Insurance Payer Benefit Plan / Group Subscriber ID Type Phone Address [employer] HMO [id number] [phone] [place] [address] as of this encounter
== END ==
PROVIDERS: Family Provider Family Medicine; PCP Family Medicine; Visit Provider Family Medicine
DX: R73.02 Impaired glucose tolerance (oral) (principal); F17.200 Nicotine dependence, unspecified, uncomplicated; Z85.07 Personal history of malignant neoplasm of pancreas
CPT/HCPCS: 36415; 80053; 80061; 81001; 83036; 85025

== ENCOUNTER → 2018-08-22 | Outpatient (CLI) | payer MEDICARE, SELFPAY ==
[2018-08-22 15:52] LABS: Hemoglobin A1c 6.9 % (4.2-6.3)
== END | disposition home or self-care (01) ==
LOC: MFPLAB 14:37
PROVIDERS: Family Provider Family Medicine; PCP Family Medicine; Referring Provider Family Medicine; Visit Provider Family Medicine
DX: R73.02 Impaired glucose tolerance (oral) (principal)
CPT/HCPCS: 36415; 83036

== ENCOUNTER 2019-01-21 15:58 | Emergency (ER) | payer MEDICARE, SELFPAY ==
[2019-01-21 15:59] VITALS: BP 186/99; PULSE 69; RESP 20; TEMP 36.6; O2SAT 99; BMI 17.3
--- NOTE | 2019-01-21 16:15 | RAD_ITS ---
STUDY: X-RAY - RIGHT SHOULDER REASON FOR EXAM: Male, 78 years old. Pain TECHNIQUE: 4 view(s) of the shoulder. COMPARISON: None. FINDINGS: No acute fracture, dislocation or osseous destruction. Moderate arthrosis is noted at the AC joint. No significant soft tissue swelling. IMPRESSION: No acute fracture dislocation right shoulder. Electronically Signed: Alberto Lai, at 18:27 EST Tel , Service support , RAD/Shoulder min 2 Views
--- NOTE | 2019-01-21 16:17 | ED.VIS.GEN ---
History of Present Illness Chief Complaint: Upper Extremity Injury Informant: Patient Onset: Today Narrative: Worsening right shoulder rib pain this morning. Had mild transient symptoms 2 times over last 2 weeks. Denies any falls. Reports did carry Wai decorations up yesterday. Pain worse with movement. He is left-hand dominant. History of recurrent pancreatic cancer rediagnosed this past July followed by Dr. Joy. 2 years ago was initial diagnosis with a Whipple's procedure at [facility]. He restarted chemo and radiation therapy end of July however stopped therapy this past November 2 reports symptoms not improving. He was having side effects. This shared decision making with his oncologist. Currently does not take any pain medications, he is on Pancrease and omeprazole at home. Denies any neck pain. States pain radiates down his shoulder with numbness. No dyspnea. Prior similar symptoms: No Past Medical History - Allergies and Home Meds Allergies/Adverse Reactions: Allergies ciprofloxacin [From Cipro] Allergy (Verified 01/21/19 16:01) Hives Penicillins Allergy (Verified 01/21/19 16:01) Anaphylaxis Tetracyclines Allergy (Verified 01/21/19 16:01) Itching Primary Care Physician: Ramses Capellan MD [Primary Care Provider] - Review of Systems General: Denies: Chills, Fever, Sweats Eyes: Denies: Visual changes - bilaterally, Diplopia ENT: Denies: Rhinorrhea, Sore throat Cardiovascular: Denies: Chest pain, Palpitations Respiratory: Denies: Dyspnea, Cough, Dyspnea on exertion Gastrointestinal: Denies: Abdominal pain, Nausea, Vomiting, Diarrhea, Melena, Hematochezia Genitourinary: Denies: Dysuria, Hematuria, Frequency Musculoskeletal: Reports: Myalgias, Arthralgias. Denies: Back pain, Extremity Pain Skin: Denies: Rash, Wounds Neurological: Denies: Headache, Weakness, Numbness Physical Exam Vital Signs/Narrative: Vital Signs Temp Pulse Resp BP Pulse Ox 01/21/19 15:59 97.8 F 69 20 H 186/99 H 99 Inital Vital Signs reviewed: Yes General: Cachectic, - - uncomfortable Head: Normocephalic, Atraumatic Eyes: Perrl, EOMI ENT: Moist mucous membranes, No rhinorrhea Neck: Supple, Nontender, - - Negative Spurling's test bilaterally. Cardiovascular: Regular rate, Regular rhythm, No murmurs Respiratory: No distress, CTA bilaterally, Chest nontender, - - Symmetric breath sounds. Abdomen: Soft, Nontender, Nondistended, Normal bowel sounds Back: Nontender, Normal Inspection Extremities: No edema, - - Positive empty can, mild positive Apley's, no deformities of shoulder on right. Skin: Normal color, No rash Neurological: Alert, Oriented x3, Cranial nerves II-XII grossly intact, Normal Strength, Normal Sensation Psychological: Normal affect, Normal Mood Diagnostic/Tx/Re-eval Clinical Impression(s) from Imaging Studies Shoulder X-Ray 01/21/19 16:15 Ribs w/Chest X-Ray 01/21/19 16:40 IMPRESSION: RIBS: No acute displaced rib fracture. CHEST: No acute cardiopulmonary process is identified. Electronically Signed: Alberto Lai, at 18:25 EST Tel , Service support , - Medical Decision Making Patient exam concerns for rotator cuff strain, however is uncomfortable. He has pancreatic cancer recurrent history, there was some records from the office note it is localized from the PET scan. However with his pain symptoms I did obtain x-rays of his shoulder and ribs to rule out any bony lesions which were negative. Morphine subcu given did not help however Toradol helped his symptoms. His monitor symptoms mildly return, as tolerated [place] in the past. Short prescription for symptom control with outpatient follow-up. All questions were answered. ED Disposition - Plan for ED Patient: Disposition: Home or Assisted Living Diagnosis: Strain of muscle(s) and tendon(s) of the rotator cuff of right shoulder, initial encounter Instructions: Shoulder Sprain Prescriptions: Hydrocodone Bitart/Apap 5-325 [[place] 5MG-325MG] 1 tablet PO Q6H PRN PRN 3 Days #10 tablet PRN Reason: Pain Ketorolac [Toradol] 10 mg PO Q6H PRN #20 tablet PRN Reason: Pain Or Fever Referrals: Ramses Capellan MD [Primary Care Provider] - 5-7 Days
[2019-01-21] MEDS: Morphine 4 MG/ML Syringe SC (16:24)
--- NOTE | 2019-01-21 16:40 | RAD_ITS ---
STUDY: X-RAY - UNILATERAL RIBS ( RIGHT ) WITH CHEST REASON FOR EXAM: Male, 78 years old. Pain TECHNIQUE - RIBS: 2 view(s) of the ribs. TECHNIQUE - CHEST: 1 COMPARISON: None. FINDINGS - RIBS: Normal visualized ribs without a demonstrated acute displaced fracture. FINDINGS - CHEST: Right-sided central catheter with its tip in the inferior SVC. The lungs are clear and expanded. There is no demonstrated pleural abnormality. Diffuse emphysema. Hyperinflation. Symmetric nodular densities are presumed to represent nipple shadows. Cardiac mediastinal silhouette is unremarkable. Normal visualized thoracic spine. Normal visualized ribs, clavicles, and shoulders. There is no demonstrated abnormality of the visualized soft tissue structures of the upper abdomen. RAD/Ribs Uni Min 3V w/PA Chest IMPRESSION: RIBS: No acute displaced rib fracture. CHEST: No acute cardiopulmonary process is identified. Electronically Signed: Alberto Lai, at 18:25 EST Tel , Service support ,
[2019-01-21] MEDS: Ketorolac 30 MG/ML Syringe IM (17:48)
[2019-01-21 20:00] VITALS: BP 115/68; PULSE 76; RESP 15; O2SAT 96
[2019-01-21] MEDS: HYDROcodone Bitartrate/Apap 5/325 Tablet PO (20:26)
[2019-01-21 20:29] VITALS: RESP 15
== END 2019-01-21 20:29 | disposition home or self-care (01) ==
PROVIDERS: Emergency Provider Emergency Medicine; Family Provider Family Medicine; PCP Family Medicine
DX: S43.429A Sprain of unspecified rotator cuff capsule, initial encounter (principal); Z51.0 Encounter for antineoplastic radiation therapy; Z85.07 Personal history of malignant neoplasm of pancreas; Z88.0 Allergy status to penicillin; Z88.1 Allergy status to other antibiotic agents
CPT/HCPCS: 71101; 73030; 96372; 99283; A4216